=== PATIENT | male | born 1965 | race African-American/Black ===

== ENCOUNTER 2017-01-30 10:28 | Inpatient (IN) | payer MEDICAID ==
[~2017-01-30] VITALS: Ht 172.7 cm; Wt 120.0 kg
[~2017-01-30 10:28] MED LIST: ALBU1AER4 IN; ASPI325T25 PO; CARV25TA55 PO; FURO40TA4 PO; IBUP200C3 PO; LEVO-28 PO; LISI-646 PO; NITR0.4S29 SL; SIMV-8 PO
[2017-01-30 11:09] LABS: Basophils # (auto) 0 uL; Basophils % (auto) 0.6 % (0.0-2.0); DEFINITIVE VIEW TRANSMISSION; Eosinophils # (auto) 0.1 uL; Hematocrit 46.3 % (41.0-53.0); Hemoglobin 15.1 g/dL (13.5-17.5); Lymphocytes # (auto) 1.3 uL; Lymphocytes % (auto) 20.5 % (10.0-50.0); Mean Corpuscular Hemoglobin 26.1 pg (28.0-32.0); Mean Corpuscular Hgb Conc. 32.6 g/dL (32.0-36.0); Mean Platelet Volume 8.6 fL (7.4-10.4); Monocytes # (auto) 0.7 uL; Monocytes % (auto) 11.4 % (0.0-12.0); Neutrophils # (auto) 4.3 uL; Neutrophils % (auto) 65.5 % (37.0-80.0); Platelet Count (auto) 249 10^3/uL (140-450); Red Cell Distribution Width 18.7 % (11.6-16.0); White Blood Cell 6.6 10^3/uL (4.4-10.8)
[2017-01-30 11:31] LABS: Urine Bilirubin Negative (Negative); Urine Blood Negative /uL (Negative); Urine Color Yellow (Yellow); Urine Glucose Normal (Normal); Urine Ketone Negative (Negative); Urine Mucus FEW (None Seen); Urine Nitrite Negative (Negative); Urine RBC <1 /hpf (0 - 3); Urine Squamous Epithelial Cell FEW /hpf (<5); Urine Urobilinogen Normal (Negative); Urine pH 5.5 (5.0-8.0)
[2017-01-30 12:04] LABS: Albumin 3.6 g/dL (3.4-5.0); BUN/Creatinine Ratio 27.8; Bilirubin, Total 0.4 mg/dL (0.2-1.0); Calcium 8.9 mg/dL (8.5-10.1); Potassium 4.4 mmol/L (3.5-5.1); Total Protein 7.8 g/dL (6.4-8.2)
[2017-01-30] MEDS ORDERED: ASPirin 81 mg TAB PO ONE (12:45)
[2017-01-30] MEDS ORDERED: ENOXAPARIN SOD 120 MG/0.8 ML SYRINGE SC ONE (12:45)
[2017-01-30] MEDS ORDERED: MORPHINE SULF INJ 2 MG/ML SYRINGE 1ML IV PRN ×2 (14:15)
[2017-01-30] MEDS ORDERED: HYDROcodone-ACET 5/325MG TAB PO PRN (14:15)
[2017-01-30] MEDS ORDERED: TEMAZEPAM 15 MG CAP PO PRN (14:15)
[2017-01-30] MEDS ORDERED: LORazepam 0.5 MG TAB PO PRN (14:15)
[2017-01-30] MEDS ORDERED: ACETAMINOPHEN 500 MG TAB PO PRN (14:15)
[2017-01-30] MEDS ORDERED: PROMETHAZINE HCL 25 MG/ML 1ML IV PRN (14:15)
[2017-01-30] MEDS: SODIUM CHLORIDE 0.9% 1,000 ML IV SCH (14:15)
[2017-01-30] MEDS ORDERED: ALPRAZolam 0.5 MG TAB PO PRN (14:15)
[2017-01-30] MEDS ORDERED: NITROGLYCERIN 0.4 MG SL TAB SL PRN (14:15)
[2017-01-30] MEDS ORDERED: LACTULOSE 20Gm/30ML SOLN PO PRN (14:15)
[2017-01-30] MEDS ORDERED: ALBUTEROL SULF 2.5 MG/0.5ML(0.5%) NEB SOLN NEB PRN (14:15)
[2017-01-30 14:44] LABS: B-Type Natriuretic Peptide 90.2 pg/mL (0-100); Temperature: 23.7 C (20.0-25.0)
[2017-01-30 18:00] LABS: Partial Thromboplastin Time 37.4 sec (22.64-33.71)
[2017-01-30 18:10] LABS: INR 1.17 (0.9-1.15); Prothrombin Time 12.6 sec (9.37-12.3)
[2017-01-30] MEDS: ALBUTEROL SULF 2.5 MG/0.5ML(0.5%) NEB SOLN NEB SCH (18:28)
[2017-01-30 18:34] VITALS: BP 156/92
[2017-01-30] MEDS ORDERED: WARFARIN SODIUM 5 MG TAB PO ONE (18:45)
[2017-01-30 21:13] VITALS: BP 119/71
[2017-01-30 21:43] VITALS: BP 119/71
[2017-01-30] MEDS ORDERED: AMIODARONE HCL 200 MG TAB PO SCH (22:00)
[2017-01-30] MEDS ORDERED: ATORVASTATIN 20 MG TAB PO SCH (22:00)
[2017-01-30] MEDS: CARVEDILOL 3.125 MG TAB PO SCH (22:00)
[2017-01-30] MEDS: LOSARTAN POTASSIUM 50 MG TAB PO SCH (22:00)
[2017-01-30] MEDS: AMIODARONE HCL 200 MG TAB PO SCH (22:24)
[2017-01-31] MEDS: ALBUTEROL SULF 2.5 MG/0.5ML(0.5%) NEB SOLN NEB SCH ×2 (01:06→07:20)
[2017-01-31] MEDS: SODIUM CHLORIDE 0.9% 1,000 ML IV SCH (03:35)
[2017-01-31 04:54] VITALS: BP 115/71
[2017-01-31 05:58] LABS: Basophils # (auto) 0 uL; Basophils % (auto) 0.7 % (0.0-2.0); DEFINITIVE VIEW TRANSMISSION; Eosinophils # (auto) 0.2 uL; Eosinophils % (auto) 3.9 % (0.0-7.0); Hemoglobin 14.7 g/dL (13.5-17.5); Lymphocytes # (auto) 1.6 uL; Lymphocytes % (auto) 34.1 % (10.0-50.0); Mean Corpuscular Hemoglobin 25.9 pg (28.0-32.0); Mean Corpuscular Hgb Conc. 31.9 g/dL (32.0-36.0); Mean Corpuscular Volume 81.4 fL (80.0-100.0); Monocytes # (auto) 0.6 uL; Monocytes % (auto) 12.2 % (0.0-12.0); Neutrophils # (auto) 2.3 uL; Neutrophils % (auto) 49.1 % (37.0-80.0); Platelet Count (auto) 250 10^3/uL (140-450); Red Cell Distribution Width 18.4 % (11.6-16.0); White Blood Cell 4.6 10^3/uL (4.4-10.8)
[2017-01-31 06:08] LABS: INR 1.14 (0.9-1.15); Partial Thromboplastin Time 34.5 sec (22.64-33.71); Prothrombin Time 12.3 sec (9.37-12.3)
[2017-01-31 06:17] LABS: Potassium 4.1 mmol/L (3.5-5.1)
[2017-01-31 06:24] LABS: Albumin 3.3 g/dL (3.4-5.0); BUN/Creatinine Ratio 22.5; Calcium 8.2 mg/dL (8.5-10.1)
[2017-01-31 06:40] LABS: Bilirubin, Total 0.3 mg/dL (0.2-1.0); Total Protein 6.9 g/dL (6.4-8.2)
[2017-01-31 07:34] LABS: B-Type Natriuretic Peptide 177.57 pg/mL (0-100); Temperature: 22.3 C (20.0-25.0)
[2017-01-31 09:00] VITALS: BP 130/89
[2017-01-31] MEDS: AMIODARONE HCL 200 MG TAB PO SCH (09:31)
[2017-01-31] MEDS: CARVEDILOL 3.125 MG TAB PO SCH (09:31)
[2017-01-31] MEDS: LOSARTAN POTASSIUM 50 MG TAB PO SCH (09:32)
[2017-01-31] MEDS ORDERED: ASPirin 81 mg TAB PO SCH (10:00)
[2017-01-31] MEDS ORDERED: WARFARIN SODIUM 5 MG TAB PO ONE (17:00)
== END 2017-01-31 11:00 | disposition left against medical advice (07) | DRG 460 ==
LOC: EDBD 10:28 → ER 10:32 → TELE 10:33 → EDUNIT# 10:33 → TELE-WESTW 19:55
PROVIDERS: ADMIT Internal Medicine; ATTEND Hospitalist
DX: N17.9 Acute kidney failure, unspecified (principal); I11.0 Hypertensive heart disease with heart failure; I95.9 Hypotension, unspecified; I50.9 Heart failure, unspecified; I25.2 Old myocardial infarction; F17.210 Nicotine dependence, cigarettes, uncomplicated; Z82.3 Family history of stroke; Z82.49 Family history of ischemic heart disease and other diseases of the circulatory system; Z71.9 Counseling, unspecified; Z95.810 Presence of automatic (implantable) cardiac defibrillator; Z53.21 Procedure and treatment not carried out due to patient leaving prior to being seen by health care provider
CPT/HCPCS: 36415; 71010; 80053; 81001; 83880; 84443; 84484; 85025; 85610; 85730; 87081; 93005; 94640; 94761; 96372

== ENCOUNTER → 2017-02-11 | Outpatient (CLI) | payer MEDICAID ==
[2017-02-11] VITALS (8 sets, daily range): BP systolic 100–127; BP diastolic 53–74
[~2017-02-11] MED LIST changes: +CYANOCOBALAMIN (B-12) 1000 MCG/1 ML VIAL ONE; +FUROSEMIDE 100 MG/10ML VIAL IV SCH; +FUROSEMIDE INJECTION 10 ML ONE; +FUROSEMIDE INJECTION 100 MG in SODIUM CHL 0.9% 100 ML IV SCH; +POTASSIUM CHL 10 Meq TABLET PO ONE; +POTASSIUM CHL 20 Meq TABLET PO ONE
[2017-02-11] MEDS: SODIUM CHLORIDE 0.9% 100 ML IV SCH (08:30)
== END | disposition home or self-care (01) ==
LOC: CHF HDHVI 07:47
PROVIDERS: ATTEND Internal Medicine Cardiovascular Disease
DX: I50.9 Heart failure, unspecified (principal); I27.2 Other secondary pulmonary hypertension; E87.70 Fluid overload, unspecified
CPT/HCPCS: 93701; 96365; 96366; G0463; J1940

== ENCOUNTER → 2017-02-13 | Outpatient (CLI) | payer MEDICAID ==
[2017-02-13] VITALS (8 sets, daily range): BP systolic 93–114; BP diastolic 65–75
[~2017-02-13] VITALS: Ht 30.5 cm; Wt 107.5 kg
[~2017-02-13] MED LIST changes: -CYANOCOBALAMIN (B-12) 1000 MCG/1 ML VIAL ONE; +FUROSEMIDE 100 MG/10ML VIAL IV ONE; -FUROSEMIDE 100 MG/10ML VIAL IV SCH; -POTASSIUM CHL 10 Meq TABLET PO ONE
[2017-02-13 08:57] LABS: INR 1.2 (0.7-1.3); Prothrombin Time 14.4 sec (9.0-12.0)
[2017-02-13 12:59] LABS: BUN/Creatinine Ratio 18.2; Calcium 9.4 mg/dL (8.5-10.1); Potassium 3.7 mmol/L (3.5-5.1)
== END | disposition home or self-care (01) ==
LOC: CHF HDHVI 08:15
PROVIDERS: ATTEND Internal Medicine Cardiovascular Disease
DX: I10 Essential (primary) hypertension (principal)
CPT/HCPCS: 36415; 80048; 85610; 96365; 96366; G0463

== ENCOUNTER → 2017-02-18 | Outpatient (CLI) | payer MEDICAID ==
[~2017-02-18] MED LIST changes: -FUROSEMIDE INJECTION 100 MG in SODIUM CHL 0.9% 100 ML IV SCH; -POTASSIUM CHL 20 Meq TABLET PO ONE
[2017-02-18 08:00] VITALS: BP 100/66
[2017-02-18 08:30] VITALS: BP 105/60
[2017-02-18 09:00] VITALS: BP 106/69
[2017-02-18 09:30] VITALS: BP 95/58
[2017-02-18 10:00] VITALS: BP 98/73
[2017-02-18 10:30] VITALS: BP 114/77
[2017-02-18 12:32] LABS: DEFINITIVE VIEW TRANSMISSION; Hematocrit 46.1 % (41.0-53.0); Hemoglobin 15.6 g/dL (13.5-17.5); Mean Corpuscular Hemoglobin 27.3 pg (28.0-32.0); Mean Corpuscular Hgb Conc. 33.8 g/dL (32.0-36.0); Mean Corpuscular Volume 80.7 fL (80.0-100.0); Mean Platelet Volume 9.6 fL (7.4-10.4); Platelet Count (auto) 210 10^3/uL (140-450); Red Cell Distribution Width 19.6 % (11.6-16.0); SUSPECT VIEW TRANSMISSION; White Blood Cell 3.9 10^3/uL (4.4-10.8)
[2017-02-18 12:37] LABS: BUN/Creatinine Ratio 18.8; Calcium 8.7 mg/dL (8.5-10.1); Potassium 4.1 mmol/L (3.5-5.1)
[2017-02-18 12:50] LABS: Metamyelocytes % 0; Myelocytes % 0; Promyelocytes % 0; Reactive Lymphocytes 0
[2017-02-18 13:09] LABS: Anisocytosis Slight
[2017-02-18 13:10] LABS: Platelet Estimate Adequate
== END | disposition home or self-care (01) ==
LOC: CHF HDHVI 08:05
PROVIDERS: ATTEND Internal Medicine Cardiovascular Disease
DX: I10 Essential (primary) hypertension (principal); D64.9 Anemia, unspecified
CPT/HCPCS: 36415; 80048; 82962; 85007; 85027; 96365; 96367; G0463

== ENCOUNTER → 2017-02-20 | Outpatient (CLI) | payer MEDICAID ==
[2017-02-20] VITALS (7 sets, daily range): BP systolic 99–114; BP diastolic 61–75
[~2017-02-20] MED LIST changes: -FUROSEMIDE 100 MG/10ML VIAL IV ONE; +FUROSEMIDE INJECTION 100 MG in SODIUM CHL 0.9% 100 ML IV ONE; +POTASSIUM CHL 20 Meq TABLET PO ONE; +SODIUM CHLORIDE 0.9% 1,000 ML IV SCH
== END | disposition home or self-care (01) ==
LOC: CHF HDHVI 07:43
PROVIDERS: ATTEND Internal Medicine Cardiovascular Disease
DX: I11.0 Hypertensive heart disease with heart failure (principal); I50.9 Heart failure, unspecified; F41.9 Anxiety disorder, unspecified; I49.9 Cardiac arrhythmia, unspecified; E87.70 Fluid overload, unspecified
CPT/HCPCS: 96365; 96366; G0463; J1940

== ENCOUNTER → 2017-02-25 | Outpatient (CLI) | payer MEDICAID ==
[~2017-02-25] MED LIST changes: +FUROSEMIDE 100 MG/10ML VIAL IV ONE; -FUROSEMIDE INJECTION 100 MG in SODIUM CHL 0.9% 100 ML IV ONE; -SODIUM CHLORIDE 0.9% 1,000 ML IV SCH; +SODIUM CHLORIDE 0.9% 100 ML IV SCH
[2017-02-25 12:16] VITALS: BP 87/70
== END | disposition home or self-care (01) ==
LOC: CHF HDHVI 09:47
PROVIDERS: ATTEND Internal Medicine Cardiovascular Disease
DX: I50.9 Heart failure, unspecified (principal); E87.6 Hypokalemia; I10 Essential (primary) hypertension; I49.9 Cardiac arrhythmia, unspecified; Z51.81 Encounter for therapeutic drug level monitoring
CPT/HCPCS: 96365; 96366; G0463; J1940

== ENCOUNTER → 2017-02-27 | Outpatient (CLI) | payer MEDICAID ==
[~2017-02-27] MED LIST changes: -FUROSEMIDE 100 MG/10ML VIAL IV ONE; +FUROSEMIDE 20 MG/2 ML VIAL IV ONE; +FUROSEMIDE 20 MG/2 ML VIAL ONE; +FUROSEMIDE 40 MG/4 ML VIAL IV ONE; +FUROSEMIDE 40 MG/4 ML VIAL ONE; -FUROSEMIDE INJECTION 10 ML ONE; +FUROSEMIDE IV SCH; +SODIUM CHL 0.9% IV SCH; -SODIUM CHLORIDE 0.9% 100 ML IV SCH
[2017-02-27 09:00] VITALS: BP 97/60
[2017-02-27 09:30] VITALS: BP 103/55
[2017-02-27 10:00] VITALS: BP 121/72
[2017-02-27 10:30] VITALS: BP 101/63
[2017-02-27 11:15] VITALS: BP 97/60
[2017-02-27 13:56] VITALS: BP 105/76
== END | disposition home or self-care (01) ==
LOC: CHF HDHVI 09:01
PROVIDERS: ATTEND Internal Medicine Cardiovascular Disease
DX: I11.0 Hypertensive heart disease with heart failure (principal); I50.9 Heart failure, unspecified; I27.2 Other secondary pulmonary hypertension; R53.83 Other fatigue; E87.70 Fluid overload, unspecified; E87.8 Other disorders of electrolyte and fluid balance, not elsewhere classified
CPT/HCPCS: 96365; 96366; G0463; J1940

== ENCOUNTER → 2017-03-04 | Outpatient (CLI) | payer MEDICAID ==
[2017-03-04] VITALS (7 sets, daily range): BP systolic 95–117; BP diastolic 58–83
[~2017-03-04] MED LIST changes: +FUROSEMIDE 100 MG/10ML VIAL IV ONE; -FUROSEMIDE 20 MG/2 ML VIAL IV ONE; -FUROSEMIDE 20 MG/2 ML VIAL ONE; -FUROSEMIDE 40 MG/4 ML VIAL IV ONE; -FUROSEMIDE 40 MG/4 ML VIAL ONE; +FUROSEMIDE INJECTION 10 ML ONE; -FUROSEMIDE IV SCH; -SODIUM CHL 0.9% IV SCH; +SODIUM CHLORIDE 0.9% 100 ML IV SCH
[2017-03-04 12:35] LABS: Potassium 4.2 mmol/L (3.5-5.1)
[2017-03-04 13:46] LABS: INR 1.9 (0.7-1.3); Prothrombin Time 22.4 sec (9.0-12.0)
== END | disposition home or self-care (01) ==
LOC: CHF HDHVI 09:32
PROVIDERS: ATTEND Internal Medicine Cardiovascular Disease
DX: I10 Essential (primary) hypertension (principal); E11.9 Type 2 diabetes mellitus without complications; E55.9 Vitamin D deficiency, unspecified
CPT/HCPCS: 36415; 80048; 82306; 83036; 85610; 96365; 96366; G0463

== ENCOUNTER → 2017-03-06 | Outpatient (CLI) | payer MEDICAID ==
[2017-03-06] VITALS (8 sets, daily range): BP systolic 94–126; BP diastolic 62–81
[~2017-03-06] MED LIST changes: -FUROSEMIDE 100 MG/10ML VIAL IV ONE; -POTASSIUM CHL 20 Meq TABLET PO ONE
[2017-03-06] MEDS: FUROSEMIDE 100 MG/10ML VIAL IV ONE ×2 (09:00→09:15)
== END | disposition home or self-care (01) ==
LOC: CHF HDHVI 09:14
PROVIDERS: ATTEND Internal Medicine Cardiovascular Disease
DX: I50.9 Heart failure, unspecified (principal); R53.83 Other fatigue; E87.70 Fluid overload, unspecified
CPT/HCPCS: 96365; 96366; G0463; J1940

== ENCOUNTER → 2017-03-11 | Outpatient (CLI) | payer MEDICAID ==
[2017-03-11] VITALS (10 sets, daily range): BP systolic 78–105; BP diastolic 48–72
[~2017-03-11] MED LIST changes: +FUROSEMIDE 100 MG/10ML VIAL IV ONE; +SODIUM CHLORIDE 0.9% 100 ML IV ONE; -SODIUM CHLORIDE 0.9% 100 ML IV SCH
[2017-03-11 17:08] LABS: BUN/Creatinine Ratio 19.1; Calcium 8.9 mg/dL (8.5-10.1); Magnesium 2.4 mg/dL (1.6-2.6); Potassium 3.9 mmol/L (3.5-5.1)
[2017-03-11 18:33] LABS: Basophils # (auto) 0 uL; Basophils % (auto) 0.7 % (0.0-2.0); CONDITION Y; DEFINITIVE SEE PRINTOUT; Eosinophils # (auto) 0 uL; Hematocrit 42.9 % (41.0-53.0); Hemoglobin 14.2 g/dL (13.5-17.5); Lymphocytes # (auto) 1.2 uL; Mean Corpuscular Hemoglobin 26.5 pg (28.0-32.0); Mean Corpuscular Volume 80.3 fL (80.0-100.0); Mean Platelet Volume 8.7 fL (7.4-10.4); Monocytes # (auto) 0.5 uL; Neutrophils # (auto) 2.4 uL; Neutrophils % (auto) 58.3 % (37.0-80.0); Platelet Count (auto) 243 10^3/uL (140-450); White Blood Cell 4.1 10^3/uL (4.4-10.8)
== END | disposition home or self-care (01) ==
LOC: CHF HDHVI 10:34
PROVIDERS: ATTEND Internal Medicine Cardiovascular Disease
DX: I10 Essential (primary) hypertension (principal); E83.42 Hypomagnesemia; D64.9 Anemia, unspecified
CPT/HCPCS: 36415; 80048; 82962; 83735; 85025; 96365; 96366; G0463; J1940

== ENCOUNTER → 2017-03-18 | Outpatient (CLI) | payer MEDICAID ==
[~2017-03-18] MED LIST changes: -FUROSEMIDE 100 MG/10ML VIAL IV ONE; +FUROSEMIDE INJECTION 100 MG in SODIUM CHL 0.9% 100 ML IV SCH; -SODIUM CHLORIDE 0.9% 100 ML IV ONE
[2017-03-18 11:00] VITALS: BP 110/76
[2017-03-18 11:30] VITALS: BP 107/71
[2017-03-18 12:00] VITALS: BP 107/71
[2017-03-18 12:30] VITALS: BP 121/73
[2017-03-18 12:36] LABS: Basophils # (auto) 0 uL; CONDITION Y; DEFINITIVE SEE PRINTOUT; Eosinophils # (auto) 0.1 uL; Hematocrit 42.7 % (41.0-53.0); Hemoglobin 14.1 g/dL (13.5-17.5); Lymphocytes # (auto) 1.1 uL; Lymphocytes % (auto) 21.7 % (10.0-50.0); Mean Corpuscular Hemoglobin 26.5 pg (28.0-32.0); Mean Corpuscular Volume 80.3 fL (80.0-100.0); Mean Platelet Volume 9.6 fL (7.4-10.4); Monocytes # (auto) 0.6 uL; Monocytes % (auto) 11.4 % (0.0-12.0); Neutrophils # (auto) 3.5 uL; Neutrophils % (auto) 65.9 % (37.0-80.0); Platelet Count (auto) 209 10^3/uL (140-450); Red Cell Distribution Width 19.5 % (11.6-16.0); White Blood Cell 5.3 10^3/uL (4.4-10.8)
[2017-03-18 12:58] LABS: BUN/Creatinine Ratio 12.5; Calcium 8.9 mg/dL (8.5-10.1); Magnesium 2.1 mg/dL (1.6-2.6); Potassium 3.6 mmol/L (3.5-5.1)
[2017-03-18 13:00] VITALS: BP 97/72
[2017-03-18 13:45] VITALS: BP 96/64
== END | disposition home or self-care (01) ==
LOC: CHF HDHVI 10:26
PROVIDERS: ATTEND Internal Medicine Cardiovascular Disease
DX: I50.9 Heart failure, unspecified (principal); E87.70 Fluid overload, unspecified
CPT/HCPCS: 36415; 80048; 83735; 85025; 85610; 96365; 96366; G0463; J1940

== ENCOUNTER → 2017-03-20 | Outpatient (CLI) | payer MEDICAID ==
[~2017-03-20] MED LIST changes: +FUROSEMIDE 100 MG/10ML VIAL IV ONE; -FUROSEMIDE INJECTION 100 MG in SODIUM CHL 0.9% 100 ML IV SCH; +SODIUM CHLORIDE 0.9% 100 ML IV ONE
[2017-03-20 14:10] VITALS: BP 103/64
== END | disposition home or self-care (01) ==
LOC: CHF HDHVI 11:24
PROVIDERS: ATTEND Internal Medicine Cardiovascular Disease
DX: I11.0 Hypertensive heart disease with heart failure (principal); I50.9 Heart failure, unspecified; I27.2 Other secondary pulmonary hypertension
CPT/HCPCS: 96365; 96366; G0463; J1940

== ENCOUNTER → 2017-03-31 | Outpatient (CLI) | payer MEDICAID ==
[2017-03-31 11:30] VITALS: BP 117/74
[2017-03-31 12:00] VITALS: BP 131/74
[2017-03-31 12:27] LABS: INR 1.9 (0.7-1.3); Prothrombin Time 22.3 sec (9.0-12.0)
[2017-03-31 12:30] VITALS: BP 109/90
[2017-03-31 13:00] VITALS: BP 116/92
[2017-03-31 13:30] VITALS: BP 112/78
[2017-03-31 14:30] VITALS: BP 115/66
== END | disposition home or self-care (01) ==
LOC: CHF HDHVI 10:11
PROVIDERS: ATTEND Internal Medicine Cardiovascular Disease
DX: I11.0 Hypertensive heart disease with heart failure (principal); I50.9 Heart failure, unspecified
CPT/HCPCS: 85610; 96365; 96366; G0463; J1940

== ENCOUNTER → 2017-04-09 | Outpatient (CLI) | payer MEDICAID ==
[~2017-04-09] VITALS: Ht 152.4 cm; Wt 110.7 kg
[~2017-04-09] MED LIST changes: -FUROSEMIDE 100 MG/10ML VIAL IV ONE; +FUROSEMIDE 100 MG/10ML VIAL IV SCH; +POTASSIUM CHL 20 Meq TABLET PO ONE; -SODIUM CHLORIDE 0.9% 100 ML IV ONE
[2017-04-09 11:00] VITALS: BP 100/60
[2017-04-09 11:30] VITALS: BP 113/62
[2017-04-09 12:00] VITALS: BP 108/62
[2017-04-09 12:30] VITALS: BP 122/73
[2017-04-09 13:30] VITALS: BP 107/72
[2017-04-09 16:52] LABS: Magnesium 2.3 mg/dL (1.6-2.6); Potassium 3.6 mmol/L (3.5-5.1)
[2017-04-09 17:06] LABS: B-Type Natriuretic Peptide 211.41 pg/mL (0-100)
[2017-04-09 17:25] LABS: Temperature: 22.7 C (20.0-25.0)
== END | disposition home or self-care (01) ==
LOC: CHF HDHVI 10:45
PROVIDERS: ATTEND Internal Medicine Cardiovascular Disease
DX: R94.4 Abnormal results of kidney function studies (principal); E87.6 Hypokalemia; I50.9 Heart failure, unspecified; E83.42 Hypomagnesemia
CPT/HCPCS: 36415; 82565; 83735; 83880; 84132; 84520; 96365; 96366; G0463; J1940; 96367; 96374

== ENCOUNTER → 2017-04-11 | Outpatient (CLI) | payer MEDICAID ==
[2017-04-11] VITALS (7 sets, daily range): BP systolic 101–117; BP diastolic 64–75
[~2017-04-11] MED LIST changes: -FUROSEMIDE 100 MG/10ML VIAL IV SCH; +FUROSEMIDE INJECTION 100 MG in SODIUM CHL 0.9% 100 ML IV SCH
== END | disposition home or self-care (01) ==
LOC: CHF HDHVI 11:29
PROVIDERS: ATTEND Internal Medicine Cardiovascular Disease
DX: I50.9 Heart failure, unspecified (principal); I25.10 Atherosclerotic heart disease of native coronary artery without angina pectoris
CPT/HCPCS: 96365; 96366; G0463; J1940

== ENCOUNTER → 2017-05-12 | Outpatient (CLI) | payer MEDICAID ==
[~2017-05-12] MED LIST changes: +FUROSEMIDE 100 MG/10ML VIAL IV ONE; +FUROSEMIDE 20 MG/2 ML VIAL ONE; -FUROSEMIDE INJECTION 100 MG in SODIUM CHL 0.9% 100 ML IV SCH
[2017-05-12 11:30] VITALS: BP 133/81
[2017-05-12 12:13] LABS: INR 1.5 (0.7-1.3)
[2017-05-12 15:25] VITALS: BP 147/85
[2017-05-12 16:14] LABS: Basophils # (auto) 0 uL; Basophils % (auto) 0.4 % (0.0-2.0); CONDITION Y; DEFINITIVE SEE PRINTOUT; Eosinophils # (auto) 0.1 uL; Eosinophils % (auto) 1.3 % (0.0-7.0); Hematocrit 39.5 % (41.0-53.0); Hemoglobin 12.6 g/dL (13.5-17.5); Lymphocytes % (auto) 23.4 % (10.0-50.0); Mean Corpuscular Hemoglobin 27.5 pg (28.0-32.0); Mean Corpuscular Volume 85.9 fL (80.0-100.0); Mean Platelet Volume 8.9 fL (7.4-10.4); Monocytes # (auto) 0.3 uL; Monocytes % (auto) 7.5 % (0.0-12.0); Neutrophils % (auto) 67.4 % (37.0-80.0); Platelet Count (auto) 249 10^3/uL (140-450); White Blood Cell 4.4 10^3/uL (4.4-10.8)
[2017-05-12 16:21] LABS: Red Cell Distribution Width 20.1 % (11.6-16.0)
[2017-05-12 16:26] LABS: BUN/Creatinine Ratio 9.8; Calcium 8.6 mg/dL (8.5-10.1); Magnesium 2.1 mg/dL (1.6-2.6); Potassium 3.5 mmol/L (3.5-5.1); Uric Acid 2.9 mg/dL (3.5-7.2)
[2017-05-12 16:47] LABS: Anisocytosis Slight; Ovalocytes FEW; Platelet Estimate Adequate
== END | disposition home or self-care (01) ==
LOC: CHF HDHVI 11:30
PROVIDERS: ATTEND Internal Medicine Cardiovascular Disease
DX: I10 Essential (primary) hypertension (principal); E83.42 Hypomagnesemia; M10.9 Gout, unspecified; D64.9 Anemia, unspecified; I48.92 Unspecified atrial flutter
CPT/HCPCS: 36415; 80048; 83735; 84550; 85025; 85610; 96374; G0463; J1940

== ENCOUNTER → 2017-05-14 | Outpatient (CLI) | payer MEDICAID ==
[~2017-05-14] VITALS: Ht 33 cm; Wt 0.5 kg
[~2017-05-14] MED LIST changes: +CYANOCOBALAMIN (B-12) 1000 MCG/1 ML VIAL IM ONE; +CYANOCOBALAMIN (B-12) 1000 MCG/1 ML VIAL ONE; -FUROSEMIDE 20 MG/2 ML VIAL ONE; +FUROSEMIDE 40 MG/4 ML VIAL ONE; -FUROSEMIDE INJECTION 10 ML ONE
[2017-05-14 11:55] VITALS: BP 128/81
[2017-05-14 15:21] VITALS: BP 126/79
[2017-05-14 16:35] LABS: Potassium 3.8 mmol/L (3.5-5.1)
== END | disposition home or self-care (01) ==
LOC: CHF HDHVI 12:06
PROVIDERS: ATTEND Internal Medicine Cardiovascular Disease
DX: E87.6 Hypokalemia (principal); R94.4 Abnormal results of kidney function studies
CPT/HCPCS: 36415; 82565; 84132; 84520; 96374; G0463; J1940; J3420

== ENCOUNTER → 2017-06-26 | Outpatient (CLI) | payer MEDICAID ==
[~2017-06-26] MED LIST changes: -CYANOCOBALAMIN (B-12) 1000 MCG/1 ML VIAL IM ONE; -CYANOCOBALAMIN (B-12) 1000 MCG/1 ML VIAL ONE; -FUROSEMIDE 100 MG/10ML VIAL IV ONE; -FUROSEMIDE 40 MG/4 ML VIAL ONE; +FUROSEMIDE INJECTION 10 ML ONE; +FUROSEMIDE INJECTION 100 MG in SODIUM CHL 0.9% 100 ML IV SCH; -POTASSIUM CHL 20 Meq TABLET PO ONE
[2017-06-26 16:45] LABS: BUN/Creatinine Ratio 19.3; Calcium 9.4 mg/dL (8.5-10.1); Magnesium 2.4 mg/dL (1.6-2.6)
[2017-06-26 16:51] VITALS: BP 99/58
[2017-06-26 17:08] LABS: Basophils # (auto) 0 uL; Basophils % (auto) 0.6 % (0.0-2.0); Eosinophils # (auto) 0.1 uL; Eosinophils % (auto) 1.6 % (0.0-7.0); Hematocrit 44.9 % (41.0-53.0); Hemoglobin 14.5 g/dL (13.5-17.5); Lymphocytes # (auto) 1.4 uL; Lymphocytes % (auto) 23.5 % (10.0-50.0); Mean Corpuscular Hemoglobin 28.3 pg (28.0-32.0); Mean Corpuscular Hgb Conc. 32.3 g/dL (32.0-36.0); Mean Corpuscular Volume 87.8 fL (80.0-100.0); Mean Platelet Volume 8.8 fL (6.9-10.8); Monocytes # (auto) 0.5 uL; Monocytes % (auto) 8.8 % (0.0-12.0); Neutrophils % (auto) 65.5 % (37.0-80.0); Nucleated Red Blood Cells % 0.1 %; Platelet Count (auto) 216 10^3/uL (140-450); Red Cell Distribution Width 15.9 % (11.8-14.3); White Blood Cell 6.1 10^3/uL (4.4-10.8)
== END | disposition home or self-care (01) ==
LOC: CHF HDHVI 13:40
PROVIDERS: ATTEND Internal Medicine Cardiovascular Disease
DX: I11.0 Hypertensive heart disease with heart failure (principal); I50.9 Heart failure, unspecified; E11.9 Type 2 diabetes mellitus without complications; E83.42 Hypomagnesemia; D64.9 Anemia, unspecified
CPT/HCPCS: 36415; 80048; 83036; 83735; 85025; 96365; 96366; G0463; J1940

== ENCOUNTER → 2017-07-03 | Outpatient (CLI) | payer MEDICAID ==
[~2017-07-03] MED LIST changes: +FUROSEMIDE 20 MG/2 ML VIAL IV ONE; +FUROSEMIDE 20 MG/2 ML VIAL ONE; +FUROSEMIDE 40 MG/4 ML VIAL IV ONE; +FUROSEMIDE 40 MG/4 ML VIAL ONE; -FUROSEMIDE INJECTION 10 ML ONE; -FUROSEMIDE INJECTION 100 MG in SODIUM CHL 0.9% 100 ML IV SCH; +POTASSIUM CHL 20 Meq TABLET PO ONE
[2017-07-03 16:00] VITALS: BP 105/68
== END | disposition home or self-care (01) ==
LOC: CHF HDHVI 12:14
PROVIDERS: ATTEND Internal Medicine Cardiovascular Disease
DX: I11.0 Hypertensive heart disease with heart failure (principal); I50.9 Heart failure, unspecified; F41.9 Anxiety disorder, unspecified; R06.02 Shortness of breath
CPT/HCPCS: 36415; 93701; 96374; G0463; J1940

== ENCOUNTER → 2018-01-12 | Outpatient (CLI) | payer MEDICARE ==
[~2018-01-12] MED LIST changes: +ALBUAER3 IN; +ALBUTEROL SULF 2.5 MG/0.5ML(0.5%) NEB SOLN NEB ONE; +ALBUTEROL SULF 2.5 MG/0.5ML(0.5%) NEB SOLN ONE; +ALPR0.5T PO; +AMIO100T3 OR; +CAR3125T OR; +CYANOCOBALAMIN (B-12) 1000 MCG/1 ML VIAL IM ONE; +CYANOCOBALAMIN (B-12) 1000 MCG/1 ML VIAL ONE; -FUROSEMIDE 20 MG/2 ML VIAL IV ONE; -FUROSEMIDE 20 MG/2 ML VIAL ONE; -FUROSEMIDE 40 MG/4 ML VIAL IV ONE; -FUROSEMIDE 40 MG/4 ML VIAL ONE; +LISI-711 PO; +LOSA25TA9 PO; +LOSA50TA6 PO; +POTA8TAB2 PO; -POTASSIUM CHL 20 Meq TABLET PO ONE; +SACU1TAB PO; +SPIR25TA88 PO; +SPIRPOW PO; +WARF1TAB36 PO
[2018-01-12 11:09] VITALS: BP 103/66
[2018-01-12 12:16] LABS: Potassium 4.2 mmol/L (3.5-5.1)
== END | disposition home or self-care (01) ==
LOC: MERGE 09:35 → CHF HDHVI 09:35
PROVIDERS: ATTEND Internal Medicine Cardiovascular Disease
DX: I13.0 Hypertensive heart and chronic kidney disease with heart failure and stage 1 through stage 4 chronic kidney disease, or unspecified chronic kidney disease (principal); I50.32 Chronic diastolic (congestive) heart failure; N18.3 Chronic kidney disease, stage 3 (moderate); E11.22 Type 2 diabetes mellitus with diabetic chronic kidney disease; I25.10 Atherosclerotic heart disease of native coronary artery without angina pectoris; I25.2 Old myocardial infarction; F17.210 Nicotine dependence, cigarettes, uncomplicated; Z79.01 Long term (current) use of anticoagulants; Z79.82 Long term (current) use of aspirin
CPT/HCPCS: 36415; 82565; 84132; 84520; 93701; 94618; 94640; 96372; G0463

== ENCOUNTER → 2018-01-20 | Outpatient (CLI) | payer MEDICARE ==
[~2018-01-20] MED LIST changes: -ALBUTEROL SULF 2.5 MG/0.5ML(0.5%) NEB SOLN NEB ONE; -ALBUTEROL SULF 2.5 MG/0.5ML(0.5%) NEB SOLN ONE; -CYANOCOBALAMIN (B-12) 1000 MCG/1 ML VIAL IM ONE; -CYANOCOBALAMIN (B-12) 1000 MCG/1 ML VIAL ONE; +FUROSEMIDE 40 MG/4 ML VIAL IV ONE; +FUROSEMIDE 40 MG/4 ML VIAL ONE
[2018-01-20 10:00] VITALS: BP 122/84
[2018-01-20 12:52] LABS: Potassium 4.4 mmol/L (3.5-5.1)
[2018-01-20 13:17] VITALS: BP 123/83
== END | disposition home or self-care (01) ==
LOC: CHF HDHVI 10:05 → MERGE 10:05
PROVIDERS: ATTEND Internal Medicine Cardiovascular Disease
DX: I13.0 Hypertensive heart and chronic kidney disease with heart failure and stage 1 through stage 4 chronic kidney disease, or unspecified chronic kidney disease (principal); E11.22 Type 2 diabetes mellitus with diabetic chronic kidney disease; N18.3 Chronic kidney disease, stage 3 (moderate); I50.23 Acute on chronic systolic (congestive) heart failure; I50.32 Chronic diastolic (congestive) heart failure; F41.9 Anxiety disorder, unspecified; I25.2 Old myocardial infarction; N28.9 Disorder of kidney and ureter, unspecified; F17.200 Nicotine dependence, unspecified, uncomplicated; F12.10 Cannabis abuse, uncomplicated; Z79.01 Long term (current) use of anticoagulants; Z95.810 Presence of automatic (implantable) cardiac defibrillator; Z99.81 Dependence on supplemental oxygen; Z68.34 Body mass index [BMI] 34.0-34.9, adult; J44.9 Chronic obstructive pulmonary disease, unspecified
CPT/HCPCS: 36415; 82565; 84132; 84520; 85610; 96374; G0463; J1940

== ENCOUNTER → 2018-01-22 | Outpatient (CLI) | payer MEDICAID, MEDICARE ==
[~2018-01-22] MED LIST changes: +POTASSIUM CHL 20 Meq TABLET PO ONE
[2018-01-22 13:05] VITALS: BP 140/81
[2018-01-22 15:00] VITALS: BP 121/71
== END | disposition home or self-care (01) ==
LOC: CHF HDHVI 13:18
PROVIDERS: ATTEND Internal Medicine Cardiovascular Disease
DX: I13.0 Hypertensive heart and chronic kidney disease with heart failure and stage 1 through stage 4 chronic kidney disease, or unspecified chronic kidney disease (principal); N18.3 Chronic kidney disease, stage 3 (moderate); I50.23 Acute on chronic systolic (congestive) heart failure; R06.00 Dyspnea, unspecified; E87.70 Fluid overload, unspecified; I25.2 Old myocardial infarction; F41.9 Anxiety disorder, unspecified; F17.210 Nicotine dependence, cigarettes, uncomplicated; F12.10 Cannabis abuse, uncomplicated; Z99.81 Dependence on supplemental oxygen
CPT/HCPCS: 96374; G0463; J1940

== ENCOUNTER → 2018-01-27 | Outpatient (CLI) | payer MEDICAID, MEDICARE ==
[~2018-01-27] MED LIST changes: -FUROSEMIDE 40 MG/4 ML VIAL IV ONE; -FUROSEMIDE 40 MG/4 ML VIAL ONE; -POTASSIUM CHL 20 Meq TABLET PO ONE; +SILVER SULFADIAZINE 1 % TOPICAL CREAM 50GM TOP ONE
[2018-01-27 13:30] VITALS: BP 101/67
[2018-01-27 16:21] LABS: BUN/Creatinine Ratio 13.8; Calcium 8.6 mg/dL (8.5-10.1); Potassium 3.7 mmol/L (3.5-5.1)
== END | disposition home or self-care (01) ==
LOC: CHF HDHVI 11:25
PROVIDERS: ATTEND Internal Medicine Cardiovascular Disease
DX: I13.0 Hypertensive heart and chronic kidney disease with heart failure and stage 1 through stage 4 chronic kidney disease, or unspecified chronic kidney disease (principal); E11.22 Type 2 diabetes mellitus with diabetic chronic kidney disease; I50.23 Acute on chronic systolic (congestive) heart failure; N18.3 Chronic kidney disease, stage 3 (moderate); Z79.82 Long term (current) use of aspirin
CPT/HCPCS: 36415; 80048; G0463

== ENCOUNTER → 2018-01-29 | Outpatient (CLI) | payer MEDICAID, MEDICARE ==
[~2018-01-29] VITALS: Ht 30.5 cm; Wt 0.5 kg
[~2018-01-29] MED LIST changes: +CYANOCOBALAMIN (B-12) 1000 MCG/1 ML VIAL IM ONE; +CYANOCOBALAMIN (B-12) 1000 MCG/1 ML VIAL ONE; -SILVER SULFADIAZINE 1 % TOPICAL CREAM 50GM TOP ONE
[2018-01-29 12:22] VITALS: BP 102/50
[2018-01-29 13:35] VITALS: BP 112/65
== END | disposition home or self-care (01) ==
LOC: CHF HDHVI 12:34
PROVIDERS: ATTEND Internal Medicine Cardiovascular Disease
DX: I13.0 Hypertensive heart and chronic kidney disease with heart failure and stage 1 through stage 4 chronic kidney disease, or unspecified chronic kidney disease (principal); E11.22 Type 2 diabetes mellitus with diabetic chronic kidney disease; N18.3 Chronic kidney disease, stage 3 (moderate); I50.23 Acute on chronic systolic (congestive) heart failure; F41.9 Anxiety disorder, unspecified; I25.2 Old myocardial infarction; F17.210 Nicotine dependence, cigarettes, uncomplicated; F12.10 Cannabis abuse, uncomplicated; Z79.01 Long term (current) use of anticoagulants; Z95.810 Presence of automatic (implantable) cardiac defibrillator; Z86.73 Personal history of transient ischemic attack (TIA), and cerebral infarction without residual deficits; Z68.34 Body mass index [BMI] 34.0-34.9, adult
CPT/HCPCS: 85610; 96372; G0463; J3420

== ENCOUNTER → 2018-02-05 | Outpatient (CLI) | payer MEDICARE ==
[~2018-02-05] MED LIST changes: -CYANOCOBALAMIN (B-12) 1000 MCG/1 ML VIAL IM ONE; -CYANOCOBALAMIN (B-12) 1000 MCG/1 ML VIAL ONE; +FUROSEMIDE 100 MG/10ML VIAL IV ONE; +FUROSEMIDE 40 MG/4 ML VIAL ONE; +POTASSIUM CHL 20 Meq TABLET PO ONE
[2018-02-05 15:00] VITALS: BP_SYST 102; BP_DIAS 53; BP_DIAS 65
[2018-02-05 15:59] LABS: Basophils # (auto) 0 uL; Basophils % (auto) 0.5 % (0.0-2.0); Eosinophils # (auto) 0.1 uL; Eosinophils % (auto) 1.5 % (0.0-7.0); Hemoglobin 13.4 g/dL (13.5-17.5); Lymphocytes # (auto) 0.8 uL; Lymphocytes % (auto) 18.3 % (10.0-50.0); Mean Corpuscular Hemoglobin 27.8 pg (28.0-32.0); Mean Corpuscular Hgb Conc. 32.7 g/dL (32.0-36.0); Mean Corpuscular Volume 85.2 fL (80.0-100.0); Monocytes # (auto) 0.4 uL; Monocytes % (auto) 9.1 % (0.0-12.0); Neutrophils # (auto) 3.2 uL; Neutrophils % (auto) 70.6 % (37.0-80.0); Nucleated Red Blood Cells % 0.3 %; Platelet Count (auto) 175 10^3/uL (140-450); Red Blood Cells 4.82 10^6/uL (4.5-5.90); White Blood Cell 4.6 10^3/uL (4.4-10.8)
[2018-02-05 16:04] LABS: Potassium 3.8 mmol/L (3.5-5.1)
== END | disposition home or self-care (01) ==
LOC: CHF HDHVI 12:58
PROVIDERS: ATTEND Internal Medicine Cardiovascular Disease
DX: I13.0 Hypertensive heart and chronic kidney disease with heart failure and stage 1 through stage 4 chronic kidney disease, or unspecified chronic kidney disease (principal); E11.22 Type 2 diabetes mellitus with diabetic chronic kidney disease; N18.3 Chronic kidney disease, stage 3 (moderate); I50.23 Acute on chronic systolic (congestive) heart failure; F41.9 Anxiety disorder, unspecified; I25.2 Old myocardial infarction; I25.10 Atherosclerotic heart disease of native coronary artery without angina pectoris; D63.8 Anemia in other chronic diseases classified elsewhere; D64.9 Anemia, unspecified; F12.10 Cannabis abuse, uncomplicated; Z86.73 Personal history of transient ischemic attack (TIA), and cerebral infarction without residual deficits; Z95.810 Presence of automatic (implantable) cardiac defibrillator; Z79.4 Long term (current) use of insulin; Z79.01 Long term (current) use of anticoagulants; Z99.81 Dependence on supplemental oxygen; Z68.34 Body mass index [BMI] 34.0-34.9, adult
CPT/HCPCS: 36415; 82565; 84132; 84520; 85025; 96374; G0463; J1940

== ENCOUNTER → 2018-02-10 | Outpatient (CLI) | payer MEDICARE ==
[~2018-02-10] MED LIST changes: +AMIODARONE HCL 200 MG TAB ONE; +AMIODARONE HCL 200 MG TAB PO ONE; -FUROSEMIDE 100 MG/10ML VIAL IV ONE; -FUROSEMIDE 40 MG/4 ML VIAL ONE; -POTASSIUM CHL 20 Meq TABLET PO ONE
[2018-02-10 09:30] VITALS: BP 103/65
[2018-02-10 10:47] VITALS: BP 116/68
== END | disposition home or self-care (01) ==
LOC: CHF HDHVI 09:43
PROVIDERS: ATTEND Internal Medicine Cardiovascular Disease
DX: I13.0 Hypertensive heart and chronic kidney disease with heart failure and stage 1 through stage 4 chronic kidney disease, or unspecified chronic kidney disease (principal); E11.22 Type 2 diabetes mellitus with diabetic chronic kidney disease; N18.3 Chronic kidney disease, stage 3 (moderate); I50.9 Heart failure, unspecified; I25.10 Atherosclerotic heart disease of native coronary artery without angina pectoris; E87.70 Fluid overload, unspecified; J44.9 Chronic obstructive pulmonary disease, unspecified; R53.83 Other fatigue; Z79.01 Long term (current) use of anticoagulants; Z87.891 Personal history of nicotine dependence; Z79.82 Long term (current) use of aspirin
CPT/HCPCS: 93701; G0463

== ENCOUNTER → 2018-02-12 | Outpatient (CLI) | payer MEDICARE ==
[2018-02-12 11:30] VITALS: BP 132/89
[2018-02-12 12:30] VITALS: BP 139/80
== END | disposition home or self-care (01) ==
LOC: CHF HDHVI 11:35
PROVIDERS: ATTEND Internal Medicine Cardiovascular Disease
DX: I13.0 Hypertensive heart and chronic kidney disease with heart failure and stage 1 through stage 4 chronic kidney disease, or unspecified chronic kidney disease (principal); E11.22 Type 2 diabetes mellitus with diabetic chronic kidney disease; N18.3 Chronic kidney disease, stage 3 (moderate); I50.32 Chronic diastolic (congestive) heart failure; I50.23 Acute on chronic systolic (congestive) heart failure; E87.70 Fluid overload, unspecified; I25.10 Atherosclerotic heart disease of native coronary artery without angina pectoris; J44.9 Chronic obstructive pulmonary disease, unspecified; I25.2 Old myocardial infarction; Z99.81 Dependence on supplemental oxygen; Z95.810 Presence of automatic (implantable) cardiac defibrillator; Z79.01 Long term (current) use of anticoagulants; Z79.82 Long term (current) use of aspirin; Z87.891 Personal history of nicotine dependence
CPT/HCPCS: G0463

== ENCOUNTER → 2018-02-19 | Outpatient (CLI) | payer MEDICARE ==
[~2018-02-19] MED LIST changes: -AMIODARONE HCL 200 MG TAB ONE; -AMIODARONE HCL 200 MG TAB PO ONE; +FUROSEMIDE 20 MG/2 ML VIAL IV ONE; +FUROSEMIDE 20 MG/2 ML VIAL ONE; +POTASSIUM CHL 20 Meq TABLET PO ONE
[2018-02-19 11:00] VITALS: BP 117/69
== END | disposition home or self-care (01) ==
LOC: LAB 09:29
PROVIDERS: ATTEND Internal Medicine Cardiovascular Disease
DX: I13.0 Hypertensive heart and chronic kidney disease with heart failure and stage 1 through stage 4 chronic kidney disease, or unspecified chronic kidney disease (principal); I50.23 Acute on chronic systolic (congestive) heart failure; N18.3 Chronic kidney disease, stage 3 (moderate); E29.1 Testicular hypofunction; E55.9 Vitamin D deficiency, unspecified; D51.9 Vitamin B12 deficiency anemia, unspecified; I25.10 Atherosclerotic heart disease of native coronary artery without angina pectoris; I50.32 Chronic diastolic (congestive) heart failure; J44.9 Chronic obstructive pulmonary disease, unspecified; I25.2 Old myocardial infarction; Z87.891 Personal history of nicotine dependence; E11.22 Type 2 diabetes mellitus with diabetic chronic kidney disease; Z68.34 Body mass index [BMI] 34.0-34.9, adult; Z99.81 Dependence on supplemental oxygen; Z79.01 Long term (current) use of anticoagulants; Z86.73 Personal history of transient ischemic attack (TIA), and cerebral infarction without residual deficits
CPT/HCPCS: 36415; 82306; 82607; 84403; 85610; 96374; G0463; J1940

== ENCOUNTER → 2018-02-24 | Outpatient (CLI) | payer MEDICARE ==
[~2018-02-24] MED LIST changes: -FUROSEMIDE 20 MG/2 ML VIAL IV ONE; -FUROSEMIDE 20 MG/2 ML VIAL ONE; -POTASSIUM CHL 20 Meq TABLET PO ONE
[2018-02-24 10:15] VITALS: BP 132/71
[2018-02-24 11:30] VITALS: BP 115/73
== END | disposition home or self-care (01) ==
LOC: CHF HDHVI 10:25
PROVIDERS: ATTEND Internal Medicine Cardiovascular Disease
DX: E29.1 Testicular hypofunction (principal); J44.9 Chronic obstructive pulmonary disease, unspecified; I13.0 Hypertensive heart and chronic kidney disease with heart failure and stage 1 through stage 4 chronic kidney disease, or unspecified chronic kidney disease; N18.3 Chronic kidney disease, stage 3 (moderate); I50.23 Acute on chronic systolic (congestive) heart failure; I48.91 Unspecified atrial fibrillation; Z79.01 Long term (current) use of anticoagulants
CPT/HCPCS: 36415; 84403; 85610; G0463

== ENCOUNTER → 2018-02-27 | Outpatient (CLI) | payer MEDICARE ==
[2018-02-27 09:38] VITALS: BP 120/58
== END | disposition home or self-care (01) ==
LOC: CHF HDHVI 09:52
PROVIDERS: ATTEND Internal Medicine Cardiovascular Disease
DX: I13.0 Hypertensive heart and chronic kidney disease with heart failure and stage 1 through stage 4 chronic kidney disease, or unspecified chronic kidney disease (principal); E11.22 Type 2 diabetes mellitus with diabetic chronic kidney disease; N18.3 Chronic kidney disease, stage 3 (moderate); I50.9 Heart failure, unspecified; Z79.4 Long term (current) use of insulin; Z79.82 Long term (current) use of aspirin
CPT/HCPCS: G0463

== ENCOUNTER → 2018-03-03 | Outpatient (CLI) | payer MEDICARE ==
[2018-03-03 10:15] VITALS: BP 125/67
[2018-03-03 13:00] VITALS: BP 125/67
[2018-03-03 16:09] LABS: Basophils # (auto) 0 uL; Basophils % (auto) 0.6 % (0.0-2.0); Eosinophils # (auto) 0 uL; Eosinophils % (auto) 0.5 % (0.0-7.0); Hemoglobin 15.7 g/dL (13.5-17.5); Lymphocytes # (auto) 1.3 uL; Lymphocytes % (auto) 20.1 % (10.0-50.0); Mean Corpuscular Hgb Conc. 33.3 g/dL (32.0-36.0); Mean Corpuscular Volume 84.1 fL (80.0-100.0); Monocytes # (auto) 0.7 uL; Monocytes % (auto) 10.4 % (0.0-12.0); Neutrophils # (auto) 4.3 uL; Neutrophils % (auto) 68.4 % (37.0-80.0); Nucleated Red Blood Cells % 0.7 %; Platelet Count (auto) 230 10^3/uL (140-450); Red Blood Cells 5.59 10^6/uL (4.5-5.90); Red Cell Distribution Width 18.4 % (11.8-14.3); White Blood Cell 6.3 10^3/uL (4.4-10.8)
[2018-03-03 16:15] LABS: BUN/Creatinine Ratio 21.1; Calcium 9.2 mg/dL (8.5-10.1); Potassium 4.3 mmol/L (3.5-5.1)
[2018-03-03 16:26] LABS: INR 1.47 (0.9-1.15); Partial Thromboplastin Time 38.3 sec (23.78-33.04); Prothrombin Time 15.4 sec (9.27-12.13)
== END | disposition home or self-care (01) ==
LOC: CHF HDHVI 11:42
PROVIDERS: ATTEND Internal Medicine Cardiovascular Disease
DX: Z01.818 Encounter for other preprocedural examination (principal); I51.7 Cardiomegaly
CPT/HCPCS: 36415; 80048; 85025; 85610; 85730; 93005; G0463; 71046

== ENCOUNTER 2018-03-04 07:03 | Inpatient (IN) | payer MEDICARE ==
[~2018-03-04] VITALS: Ht 172.7 cm; Wt 117.1 kg
[~2018-03-04 07:03] MED LIST changes: -LOSA25TA9 PO; -POTA8TAB2 PO; -SPIR25TA88 PO
[2018-03-04 08:00] LABS: Basophils # (auto) 0 uL; Basophils % (auto) 0.8 % (0.0-2.0); Eosinophils # (auto) 0.1 uL; Eosinophils % (auto) 1.4 % (0.0-7.0); Hematocrit 43.8 % (41.0-53.0); Hemoglobin 14.3 g/dL (13.5-17.5); Lymphocytes # (auto) 1.3 uL; Lymphocytes % (auto) 22.7 % (10.0-50.0); Mean Corpuscular Hemoglobin 27.3 pg (28.0-32.0); Mean Corpuscular Hgb Conc. 32.6 g/dL (32.0-36.0); Mean Corpuscular Volume 83.8 fL (80.0-100.0); Monocytes # (auto) 0.6 uL; Monocytes % (auto) 10.5 % (0.0-12.0); Neutrophils # (auto) 3.8 uL; Neutrophils % (auto) 64.6 % (37.0-80.0); Nucleated Red Blood Cells % 0.1 %; Platelet Count (auto) 201 10^3/uL (140-450); Red Blood Cells 5.23 10^6/uL (4.5-5.90); White Blood Cell 5.9 10^3/uL (4.4-10.8)
[2018-03-04 08:20] LABS: Albumin 3.5 g/dL (3.4-5.0); BUN/Creatinine Ratio 17.6; Bilirubin, Total 0.3 mg/dL (0.2-1.0); Calcium 8.7 mg/dL (8.5-10.1); Potassium 4.3 mmol/L (3.5-5.1)
[2018-03-04] MEDS ORDERED: NITROGLYCERIN 0.4 MG SL TAB SL PRN (09:15)
[2018-03-04] MEDS ORDERED: MORPHINE SULF(PF) 0.5MG/ML 10ML VIAL IV PRN (09:15)
[2018-03-04] MEDS ORDERED: SODIUM CHLORIDE 0.9% 1,000 ML IV ONE (09:15)
[2018-03-04] MEDS ORDERED: ceFAZolin 1GM/100ML 50 ML IV ONE (09:15)
[2018-03-04] MEDS ORDERED: SACU1TAB PO (10:58)
[2018-03-04] MEDS ORDERED: LOSA25TA9 PO (10:58)
[2018-03-04] MEDS ORDERED: SPIR25TA88 PO (11:01)
[2018-03-04] MEDS ORDERED: POTA8TAB2 PO (11:01)
[2018-03-04 11:17] LABS: Urine Bacteria NONE SEEN /hpf (None Seen); Urine Blood Negative /uL (Negative); Urine Specific Gravity 1.024 (1.001-1.035); Urine WBC <1 /hpf (0 - 3)
[2018-03-04] MEDS: ceFAZolin 1GM/100ML 50 ML IV SCH (16:43)
[2018-03-04 17:00] VITALS: BP 118/76
[2018-03-04] MEDS: IBUPROFEN 400 MG TAB PO SCH (21:23)
[2018-03-04 23:09] VITALS: BP 114/68
[2018-03-05] MEDS: ceFAZolin 1GM/100ML 50 ML IV SCH ×2 (00:47→20:11)
[2018-03-05 05:24] VITALS: BP 115/71
[2018-03-05] MEDS: IBUPROFEN 400 MG TAB PO SCH ×4 (05:58→21:55)
[2018-03-05 06:39] LABS: INR 1.19 (0.9-1.15); Partial Thromboplastin Time 32.7 sec (23.78-33.04); Prothrombin Time 12.6 sec (9.27-12.13)
[2018-03-05] MEDS ORDERED: LIDOCAINE 2%HCL (LOCAL ANESTH.) INJ 20ML MDV ONE (07:17)
[2018-03-05] MEDS ORDERED: ceFAZolin 1GM/100ML 50 ML IV ONE (07:30)
[2018-03-05] MEDS ORDERED: VANCOMYCIN HCL 1000 MG VL ONE (07:41)
[2018-03-05] MEDS ORDERED: VANCOMYCIN 1GM/250ML 250 ML IV ONE ×2 (07:42→20:00)
[2018-03-05] MEDS ORDERED: MIDAZOLAM HCL 1MG/1ML-2 ML VIAL ONE (07:42)
[2018-03-05] MEDS ORDERED: fentaNYL CITRATE 100 MCG/2 ML VL ONE (07:42)
[2018-03-05] MEDS ORDERED: ONDANSETRON HCL 4 MG/2 ML VIAL ONE (09:54)
[2018-03-05 12:35] VITALS: BP 118/92
[2018-03-05 17:00] VITALS: BP 113/58
[2018-03-05] MEDS ORDERED: HYDROcodone-ACET 10/325MG TAB PO PRN (19:15)
[2018-03-05 20:15] VITALS: BP 123/74
[2018-03-05 22:00] VITALS: BP 123/74
[2018-03-06] MEDS: ceFAZolin 1GM/100ML 50 ML IV SCH ×2 (01:28→09:30)
[2018-03-06] MEDS ORDERED: ONDANSETRON HCL 4 MG/2 ML VIAL IV ONE ×2 (03:00→12:45)
[2018-03-06] MEDS ORDERED: ACETAMINOPHEN 325 MG TAB PO ONE (03:00)
[2018-03-06 05:00] VITALS: BP 123/75
[2018-03-06] MEDS: IBUPROFEN 400 MG TAB PO SCH ×2 (05:56→11:57)
[2018-03-06 08:00] LABS: Basophils # (auto) 0 uL; Basophils % (auto) 0.5 % (0.0-2.0); Eosinophils # (auto) 0.1 uL; Eosinophils % (auto) 2.1 % (0.0-7.0); Hematocrit 38.5 % (41.0-53.0); Hemoglobin 12.7 g/dL (13.5-17.5); Lymphocytes # (auto) 0.9 uL; Lymphocytes % (auto) 16.5 % (10.0-50.0); Mean Corpuscular Hemoglobin 27.8 pg (28.0-32.0); Mean Corpuscular Hgb Conc. 32.9 g/dL (32.0-36.0); Mean Corpuscular Volume 84.4 fL (80.0-100.0); Monocytes # (auto) 0.6 uL; Monocytes % (auto) 10.3 % (0.0-12.0); Neutrophils % (auto) 70.6 % (37.0-80.0); Platelet Count (auto) 167 10^3/uL (140-450); Red Blood Cells 4.56 10^6/uL (4.5-5.90); Red Cell Distribution Width 18.3 % (11.8-14.3); White Blood Cell 5.6 10^3/uL (4.4-10.8)
[2018-03-06 08:16] LABS: BUN/Creatinine Ratio 12.8; Potassium 4.5 mmol/L (3.5-5.1)
[2018-03-06 09:00] VITALS: BP 111/69
[2018-03-06 13:00] VITALS: BP 127/70
[2018-03-06 16:55] VITALS: BP 123/74
== END 2018-03-06 18:10 | disposition home or self-care (01) | DRG 245 ==
LOC: ER 07:06 → TELE 07:08 → TELE-WESTW 14:38
PROVIDERS: ADMIT Internal Medicine Cardiovascular Disease; ATTEND Internal Medicine Cardiovascular Disease
PROC: 0JPT0PZ Removal of Cardiac Rhythm Related Device from Trunk Subcutaneous Tissue and Fascia, Open Approach (ICD-10-PCS; principal; 2018-03-05)
PROC: 0JH609Z Insertion of Cardiac Resynchronization Defibrillator Pulse Generator into Chest Subcutaneous Tissue and Fascia, Open Approach (ICD-10-PCS; 2018-03-05)
DX: Z45.02 Encounter for adjustment and management of automatic implantable cardiac defibrillator (principal); I50.21 Acute systolic (congestive) heart failure; I42.0 Dilated cardiomyopathy; I11.0 Hypertensive heart disease with heart failure; J45.909 Unspecified asthma, uncomplicated; F41.9 Anxiety disorder, unspecified; E78.5 Hyperlipidemia, unspecified; R74.8 Abnormal levels of other serum enzymes; I20.9 Angina pectoris, unspecified; I48.0 Paroxysmal atrial fibrillation; N28.9 Disorder of kidney and ureter, unspecified; Z91.012 Allergy to eggs; Z79.899 Other long term (current) drug therapy
CPT/HCPCS: 36415; 71046; 80048; 80053; 81001; 84484; 85025; 85610; 85730; 86850; 86900; 86901; 93005; 96374; 99152; G0463; J0690; J2250; J2405

== ENCOUNTER → 2018-03-09 | Outpatient (CLI) | payer MEDICARE ==
[~2018-03-09] MED LIST changes: +CYANOCOBALAMIN (B-12) 1000 MCG/1 ML VIAL IM ONE; +CYANOCOBALAMIN (B-12) 1000 MCG/1 ML VIAL ONE; +FUROSEMIDE 100 MG/10ML VIAL IV ONE; +FUROSEMIDE 40 MG/4 ML VIAL ONE; +LOSA25TA9 PO; -LOSA50TA6 PO; +POTA8TAB2 PO; +POTASSIUM CHL 20 Meq TABLET PO ONE; +SPIR25TA88 PO
[2018-03-09 09:40] VITALS: BP 136/81
[2018-03-09 16:29] VITALS: BP 123/84
== END | disposition home or self-care (01) ==
LOC: CHF HDHVI 09:43
PROVIDERS: ATTEND Internal Medicine Cardiovascular Disease
DX: I13.0 Hypertensive heart and chronic kidney disease with heart failure and stage 1 through stage 4 chronic kidney disease, or unspecified chronic kidney disease (principal); E11.22 Type 2 diabetes mellitus with diabetic chronic kidney disease; N18.3 Chronic kidney disease, stage 3 (moderate); I50.23 Acute on chronic systolic (congestive) heart failure; R53.81 Other malaise; R53.83 Other fatigue; I25.10 Atherosclerotic heart disease of native coronary artery without angina pectoris; I42.0 Dilated cardiomyopathy; I25.2 Old myocardial infarction; I48.0 Paroxysmal atrial fibrillation; J44.9 Chronic obstructive pulmonary disease, unspecified; E78.5 Hyperlipidemia, unspecified; Z79.899 Other long term (current) drug therapy; Z79.82 Long term (current) use of aspirin; Z79.4 Long term (current) use of insulin; Z79.01 Long term (current) use of anticoagulants; Z68.34 Body mass index [BMI] 34.0-34.9, adult; Z87.891 Personal history of nicotine dependence; Z95.810 Presence of automatic (implantable) cardiac defibrillator; Z99.81 Dependence on supplemental oxygen
CPT/HCPCS: 85610; 96372; 96374; G0463; J1940; J3420

== ENCOUNTER → 2018-03-12 | Outpatient (CLI) | payer MEDICARE ==
[~2018-03-12] MED LIST changes: -CYANOCOBALAMIN (B-12) 1000 MCG/1 ML VIAL IM ONE; -CYANOCOBALAMIN (B-12) 1000 MCG/1 ML VIAL ONE; -FUROSEMIDE 100 MG/10ML VIAL IV ONE; +FUROSEMIDE 40 MG/4 ML VIAL IV SCH; +POTASSIUM CHL 10 Meq TABLET PO ONE; +POTASSIUM CHL 10 Meq TABLET PO SCH; -POTASSIUM CHL 20 Meq TABLET PO ONE; +SILVER SULFADIAZINE 1 % TOPICAL CREAM 50GM TOP ONE; +SILVER SULFADIAZINE 1 % TOPICAL CREAM 50GM TOP SCH
[2018-03-12 12:40] VITALS: BP 109/76
[2018-03-12 13:00] VITALS: BP 109/76
[2018-03-12 14:10] VITALS: BP 107/70
[2018-03-12 16:47] LABS: Basophils # (auto) 0 uL; Basophils % (auto) 0.6 % (0.0-2.0); Eosinophils # (auto) 0 uL; Eosinophils % (auto) 0.6 % (0.0-7.0); Hematocrit 42.2 % (41.0-53.0); Hemoglobin 13.9 g/dL (13.5-17.5); Lymphocytes # (auto) 1.3 uL; Lymphocytes % (auto) 17.9 % (10.0-50.0); Mean Corpuscular Hemoglobin 27.7 pg (28.0-32.0); Mean Corpuscular Hgb Conc. 32.9 g/dL (32.0-36.0); Mean Corpuscular Volume 84.2 fL (80.0-100.0); Monocytes # (auto) 0.7 uL; Monocytes % (auto) 10.4 % (0.0-12.0); Neutrophils % (auto) 70.5 % (37.0-80.0); Nucleated Red Blood Cells % 0.4 %; Platelet Count (auto) 253 10^3/uL (140-450); Red Blood Cells 5.02 10^6/uL (4.5-5.90); Red Cell Distribution Width 17.9 % (11.8-14.3); White Blood Cell 7.1 10^3/uL (4.4-10.8)
[2018-03-12 16:51] LABS: BUN/Creatinine Ratio 15.6; Calcium 8.5 mg/dL (8.5-10.1); Potassium 3.9 mmol/L (3.5-5.1)
== END | disposition home or self-care (01) ==
LOC: CHF HDHVI 13:06
PROVIDERS: ATTEND Internal Medicine Cardiovascular Disease
DX: I13.0 Hypertensive heart and chronic kidney disease with heart failure and stage 1 through stage 4 chronic kidney disease, or unspecified chronic kidney disease (principal); I50.23 Acute on chronic systolic (congestive) heart failure; I50.32 Chronic diastolic (congestive) heart failure; N18.3 Chronic kidney disease, stage 3 (moderate); D64.9 Anemia, unspecified; E11.22 Type 2 diabetes mellitus with diabetic chronic kidney disease; J44.9 Chronic obstructive pulmonary disease, unspecified; E78.5 Hyperlipidemia, unspecified; I48.0 Paroxysmal atrial fibrillation; F41.9 Anxiety disorder, unspecified; D51.9 Vitamin B12 deficiency anemia, unspecified; E87.70 Fluid overload, unspecified; F12.90 Cannabis use, unspecified, uncomplicated; I25.2 Old myocardial infarction; Z87.891 Personal history of nicotine dependence; Z79.4 Long term (current) use of insulin; Z79.01 Long term (current) use of anticoagulants; Z79.82 Long term (current) use of aspirin; Z68.34 Body mass index [BMI] 34.0-34.9, adult; Z95.810 Presence of automatic (implantable) cardiac defibrillator; Z99.81 Dependence on supplemental oxygen
CPT/HCPCS: 36415; 80048; 85025; 85610; 96374; G0463; J1940

== ENCOUNTER → 2018-03-13 | Outpatient (CLI) | payer MEDICARE ==
[~2018-03-13] MED LIST changes: -FUROSEMIDE 40 MG/4 ML VIAL IV SCH; -FUROSEMIDE 40 MG/4 ML VIAL ONE; -POTASSIUM CHL 10 Meq TABLET PO ONE; -POTASSIUM CHL 10 Meq TABLET PO SCH; -SILVER SULFADIAZINE 1 % TOPICAL CREAM 50GM TOP ONE; -SILVER SULFADIAZINE 1 % TOPICAL CREAM 50GM TOP SCH
[2018-03-13 09:30] VITALS: BP 111/64
[2018-03-13 10:00] VITALS: BP 110/66
== END | disposition home or self-care (01) ==
LOC: CHF HDHVI 09:52
PROVIDERS: ATTEND Internal Medicine Cardiovascular Disease
DX: I13.0 Hypertensive heart and chronic kidney disease with heart failure and stage 1 through stage 4 chronic kidney disease, or unspecified chronic kidney disease (principal); N18.3 Chronic kidney disease, stage 3 (moderate); I50.9 Heart failure, unspecified; Z95.0 Presence of cardiac pacemaker; E11.22 Type 2 diabetes mellitus with diabetic chronic kidney disease; Z79.01 Long term (current) use of anticoagulants; Z79.899 Other long term (current) drug therapy
CPT/HCPCS: G0463

== ENCOUNTER → 2018-03-16 | Outpatient (CLI) | payer MEDICARE ==
[~2018-03-16] MED LIST changes: +CEPHALEXIN 250 MG CAP PO ONE
[2018-03-16 10:30] VITALS: BP 103/64
[2018-03-16 12:10] VITALS: BP 107/77
== END | disposition home or self-care (01) ==
LOC: CHF HDHVI 10:51
PROVIDERS: ATTEND Internal Medicine Cardiovascular Disease
DX: I25.10 Atherosclerotic heart disease of native coronary artery without angina pectoris (principal); I13.0 Hypertensive heart and chronic kidney disease with heart failure and stage 1 through stage 4 chronic kidney disease, or unspecified chronic kidney disease; I50.9 Heart failure, unspecified; N18.3 Chronic kidney disease, stage 3 (moderate); E78.5 Hyperlipidemia, unspecified; Z79.899 Other long term (current) drug therapy; Z79.01 Long term (current) use of anticoagulants; Z79.82 Long term (current) use of aspirin
CPT/HCPCS: G0463

== ENCOUNTER → 2018-03-20 | Outpatient (CLI) | payer MEDICARE ==
[~2018-03-20] MED LIST changes: -CEPHALEXIN 250 MG CAP PO ONE
[2018-03-20 11:55] VITALS: BP 100/69
[2018-03-20 12:16] LABS: Potassium 3.8 mmol/L (3.5-5.1)
== END | disposition home or self-care (01) ==
LOC: CHF HDHVI 09:26
PROVIDERS: ATTEND Internal Medicine Cardiovascular Disease
DX: I13.0 Hypertensive heart and chronic kidney disease with heart failure and stage 1 through stage 4 chronic kidney disease, or unspecified chronic kidney disease (principal); E11.22 Type 2 diabetes mellitus with diabetic chronic kidney disease; I50.9 Heart failure, unspecified; N18.3 Chronic kidney disease, stage 3 (moderate); I25.10 Atherosclerotic heart disease of native coronary artery without angina pectoris; I42.9 Cardiomyopathy, unspecified; J44.9 Chronic obstructive pulmonary disease, unspecified; Z79.899 Other long term (current) drug therapy
CPT/HCPCS: 36415; 82565; 84132; 84520; 85610; 93701; G0463

== ENCOUNTER → 2018-03-26 | Outpatient (CLI) | payer MEDICARE ==
[~2018-03-26] MED LIST changes: +CYANOCOBALAMIN (B-12) 1000 MCG/1 ML VIAL IM ONE; +CYANOCOBALAMIN (B-12) 1000 MCG/1 ML VIAL ONE; +FUROSEMIDE 40 MG/4 ML VIAL IV ONE; +FUROSEMIDE 40 MG/4 ML VIAL ONE; +POTASSIUM CHL 20 Meq TABLET PO ONE
[2018-03-26 13:30] VITALS: BP 120/83
== END | disposition home or self-care (01) ==
LOC: CHF HDHVI 11:51
PROVIDERS: ATTEND Internal Medicine Cardiovascular Disease
DX: I13.0 Hypertensive heart and chronic kidney disease with heart failure and stage 1 through stage 4 chronic kidney disease, or unspecified chronic kidney disease (principal); I50.23 Acute on chronic systolic (congestive) heart failure; E11.22 Type 2 diabetes mellitus with diabetic chronic kidney disease; N18.3 Chronic kidney disease, stage 3 (moderate); R53.83 Other fatigue; E87.70 Fluid overload, unspecified; I50.32 Chronic diastolic (congestive) heart failure; I25.10 Atherosclerotic heart disease of native coronary artery without angina pectoris; J44.9 Chronic obstructive pulmonary disease, unspecified; I42.9 Cardiomyopathy, unspecified; E78.5 Hyperlipidemia, unspecified; F41.9 Anxiety disorder, unspecified; I48.0 Paroxysmal atrial fibrillation; I25.2 Old myocardial infarction; Z79.82 Long term (current) use of aspirin; Z79.01 Long term (current) use of anticoagulants; Z99.81 Dependence on supplemental oxygen; Z68.34 Body mass index [BMI] 34.0-34.9, adult; Z87.891 Personal history of nicotine dependence; Z86.73 Personal history of transient ischemic attack (TIA), and cerebral infarction without residual deficits
CPT/HCPCS: 85610; 96372; 96374; G0463; J1940; J3420

== ENCOUNTER → 2018-04-20 | Outpatient (CLI) | payer MEDICARE ==
[~2018-04-20] MED LIST changes: -CYANOCOBALAMIN (B-12) 1000 MCG/1 ML VIAL IM ONE; -CYANOCOBALAMIN (B-12) 1000 MCG/1 ML VIAL ONE; -FUROSEMIDE 40 MG/4 ML VIAL IV ONE; -FUROSEMIDE 40 MG/4 ML VIAL ONE; -POTASSIUM CHL 20 Meq TABLET PO ONE
[2018-04-20 13:49] VITALS: BP 135/90
== END | disposition home or self-care (01) ==
LOC: CHF HDHVI 12:23
PROVIDERS: ATTEND Internal Medicine Cardiovascular Disease
DX: I25.10 Atherosclerotic heart disease of native coronary artery without angina pectoris (principal); I50.9 Heart failure, unspecified
CPT/HCPCS: 85610; 93701; G0463

== ENCOUNTER → 2018-04-21 | Outpatient (CLI) | payer MEDICARE ==
[2018-04-21 12:40] VITALS: BP 122/79
[2018-04-21 16:07] LABS: Basophils # (auto) 0.1 uL; Eosinophils # (auto) 0.1 uL; Eosinophils % (auto) 2.1 % (0.0-7.0); Hematocrit 43.8 % (41.0-53.0); Hemoglobin 14.5 g/dL (13.5-17.5); Lymphocytes # (auto) 1.3 uL; Mean Corpuscular Hemoglobin 28.3 pg (28.0-32.0); Mean Corpuscular Hgb Conc. 33.2 g/dL (32.0-36.0); Mean Corpuscular Volume 85.4 fL (80.0-100.0); Monocytes # (auto) 0.4 uL; Monocytes % (auto) 8.3 % (0.0-12.0); Neutrophils # (auto) 3.4 uL; Neutrophils % (auto) 64.6 % (37.0-80.0); Nucleated Red Blood Cells % 0.7 %; Platelet Count (auto) 200 10^3/uL (140-450); Red Blood Cells 5.13 10^6/uL (4.5-5.90); Red Cell Distribution Width 17.4 % (11.8-14.3); White Blood Cell 5.2 10^3/uL (4.4-10.8)
[2018-04-21 16:13] LABS: BUN/Creatinine Ratio 10.2; Calcium 8.5 mg/dL (8.5-10.1); Magnesium 2.7 mg/dL (1.6-2.6); Potassium 3.8 mmol/L (3.5-5.1)
[2018-04-23 09:34] LABS: Hepatitis B Surface Antibody Negative
[2018-04-23 09:52] LABS: Hepatitis A Total Antibody Negative
[2018-04-23 10:52] LABS: Hepatitis B Core Total AB Negative; Hepatitis B Surface Antigen Negative (Negative); Hepatitis C Antibody Negative (Negative)
== END | disposition home or self-care (01) ==
LOC: CHF HDHVI 12:25
PROVIDERS: ATTEND Internal Medicine Cardiovascular Disease
DX: I13.0 Hypertensive heart and chronic kidney disease with heart failure and stage 1 through stage 4 chronic kidney disease, or unspecified chronic kidney disease (principal); E11.22 Type 2 diabetes mellitus with diabetic chronic kidney disease; N18.3 Chronic kidney disease, stage 3 (moderate); I50.9 Heart failure, unspecified; E78.00 Pure hypercholesterolemia, unspecified; D64.9 Anemia, unspecified; C61 Malignant neoplasm of prostate; E83.40 Disorders of magnesium metabolism, unspecified; E03.9 Hypothyroidism, unspecified; I25.10 Atherosclerotic heart disease of native coronary artery without angina pectoris; Z94.1 Heart transplant status
CPT/HCPCS: 36415; 80048; 80061; 83036; 83735; 84153; 84403; 84443; 85025; 86703; 86704; 86706; 86708; 86803; 86850; 86900; 86901; 87340; G0463

== ENCOUNTER → 2018-05-01 | Outpatient (CLI) | payer MEDICARE ==
[2018-05-01 13:45] VITALS: BP 113/77
== END | disposition home or self-care (01) ==
LOC: CHF HDHVI 12:55
PROVIDERS: ATTEND Internal Medicine Cardiovascular Disease
DX: I50.9 Heart failure, unspecified (principal)
CPT/HCPCS: 85610; G0463

== ENCOUNTER → 2018-05-05 | Outpatient (CLI) | payer MEDICARE ==
[~2018-05-05] MED LIST changes: +CYANOCOBALAMIN (B-12) 1000 MCG/1 ML VIAL IM ONE; +CYANOCOBALAMIN (B-12) 1000 MCG/1 ML VIAL ONE; +FUROSEMIDE 40 MG/4 ML VIAL IV ONE; +FUROSEMIDE 40 MG/4 ML VIAL ONE; +POTASSIUM CHL 20 Meq TABLET PO ONE
[2018-05-05 10:10] VITALS: BP 121/64
[2018-05-05 11:58] VITALS: BP 103/70
[2018-05-05 15:58] LABS: Basophils # (auto) 0 uL; Basophils % (auto) 0.6 % (0.0-2.0); Eosinophils # (auto) 0.1 uL; Hematocrit 45.9 % (41.0-53.0); Hemoglobin 15.3 g/dL (13.5-17.5); Lymphocytes # (auto) 1.3 uL; Lymphocytes % (auto) 23.1 % (10.0-50.0); Mean Corpuscular Hemoglobin 28.3 pg (28.0-32.0); Mean Corpuscular Hgb Conc. 33.4 g/dL (32.0-36.0); Mean Corpuscular Volume 84.8 fL (80.0-100.0); Monocytes # (auto) 0.7 uL; Monocytes % (auto) 12.8 % (0.0-12.0); Neutrophils # (auto) 3.6 uL; Neutrophils % (auto) 62.5 % (37.0-80.0); Nucleated Red Blood Cells % 0.8 %; Platelet Count (auto) 225 10^3/uL (140-450); Red Blood Cells 5.41 10^6/uL (4.5-5.90); Red Cell Distribution Width 17.6 % (11.8-14.3); White Blood Cell 5.8 10^3/uL (4.4-10.8)
[2018-05-05 16:11] LABS: Anion Gap 10 (5-15); BUN/Creatinine Ratio 13.3; Blood Urea Nitrogen 20 mg/dL (7-18); Carbon Dioxide 24 mmol/L (21-32); Chloride 104 mmol/L (98-107); GFR African American 63 mL/min; GFR Non-African American 52 mL/min; Glucose 80 mg/dL (74-106); Sodium 138 mmol/L (136-145)
== END | disposition home or self-care (01) ==
LOC: CHF HDHVI 10:13
PROVIDERS: ATTEND Internal Medicine Cardiovascular Disease
DX: E87.70 Fluid overload, unspecified (principal); D64.9 Anemia, unspecified; I10 Essential (primary) hypertension; R53.83 Other fatigue; I13.0 Hypertensive heart and chronic kidney disease with heart failure and stage 1 through stage 4 chronic kidney disease, or unspecified chronic kidney disease; E11.22 Type 2 diabetes mellitus with diabetic chronic kidney disease; N18.3 Chronic kidney disease, stage 3 (moderate); I50.23 Acute on chronic systolic (congestive) heart failure; I50.32 Chronic diastolic (congestive) heart failure; J44.9 Chronic obstructive pulmonary disease, unspecified; I25.10 Atherosclerotic heart disease of native coronary artery without angina pectoris; I25.2 Old myocardial infarction; I48.91 Unspecified atrial fibrillation; E03.9 Hypothyroidism, unspecified; E78.00 Pure hypercholesterolemia, unspecified; E78.5 Hyperlipidemia, unspecified; F41.9 Anxiety disorder, unspecified; Z79.4 Long term (current) use of insulin; Z79.01 Long term (current) use of anticoagulants; Z79.82 Long term (current) use of aspirin; Z68.34 Body mass index [BMI] 34.0-34.9, adult; Z87.891 Personal history of nicotine dependence; Z99.81 Dependence on supplemental oxygen
CPT/HCPCS: 36415; 80048; 85025; 85610; 96372; 96374; G0463; J1940; J3420

== ENCOUNTER → 2018-05-07 | Outpatient (CLI) | payer MEDICARE ==
[~2018-05-07] MED LIST changes: -CYANOCOBALAMIN (B-12) 1000 MCG/1 ML VIAL IM ONE; -CYANOCOBALAMIN (B-12) 1000 MCG/1 ML VIAL ONE; +FUROSEMIDE 100 MG/10ML VIAL IV ONE; -FUROSEMIDE 40 MG/4 ML VIAL IV ONE
[2018-05-07 14:42] VITALS: BP 127/72
== END | disposition home or self-care (01) ==
LOC: CHF HDHVI 13:47
PROVIDERS: ATTEND Internal Medicine Cardiovascular Disease
DX: I25.10 Atherosclerotic heart disease of native coronary artery without angina pectoris (principal); I13.0 Hypertensive heart and chronic kidney disease with heart failure and stage 1 through stage 4 chronic kidney disease, or unspecified chronic kidney disease; E11.22 Type 2 diabetes mellitus with diabetic chronic kidney disease; N18.3 Chronic kidney disease, stage 3 (moderate); I50.23 Acute on chronic systolic (congestive) heart failure; I50.32 Chronic diastolic (congestive) heart failure; E87.70 Fluid overload, unspecified; J44.9 Chronic obstructive pulmonary disease, unspecified; I25.2 Old myocardial infarction; E78.5 Hyperlipidemia, unspecified; E03.9 Hypothyroidism, unspecified; E78.00 Pure hypercholesterolemia, unspecified; I48.91 Unspecified atrial fibrillation; F41.9 Anxiety disorder, unspecified; Z79.4 Long term (current) use of insulin; Z79.01 Long term (current) use of anticoagulants; Z79.82 Long term (current) use of aspirin; Z87.891 Personal history of nicotine dependence; Z99.81 Dependence on supplemental oxygen
CPT/HCPCS: 96374; G0463; J1940

== ENCOUNTER → 2018-05-27 | Outpatient (CLI) | payer MEDICARE ==
[~2018-05-27] MED LIST changes: +AMIODARONE HCL 200 MG TAB ONE; +AMIODARONE HCL 200 MG TAB PO ONE; +LOSA25TA40 PO; -LOSA25TA9 PO
[2018-05-27 14:05] VITALS: BP 128/83
[2018-05-27 16:15] LABS: Basophils # (auto) 0 uL; Basophils % (auto) 0.6 % (0.0-2.0); Eosinophils # (auto) 0.1 uL; Eosinophils % (auto) 1.2 % (0.0-7.0); Hematocrit 46.5 % (41.0-53.0); Hemoglobin 15.2 g/dL (13.5-17.5); Lymphocytes # (auto) 1.2 uL; Mean Corpuscular Hemoglobin 27.9 pg (28.0-32.0); Mean Corpuscular Hgb Conc. 32.7 g/dL (32.0-36.0); Mean Corpuscular Volume 85.3 fL (80.0-100.0); Monocytes # (auto) 0.7 uL; Monocytes % (auto) 11.3 % (0.0-12.0); Neutrophils # (auto) 4.3 uL; Neutrophils % (auto) 67.9 % (37.0-80.0); Nucleated Red Blood Cells % 0.5 %; Platelet Count (auto) 209 10^3/uL (140-450); Red Blood Cells 5.45 10^6/uL (4.5-5.90); Red Cell Distribution Width 17.5 % (11.8-14.3); White Blood Cell 6.3 10^3/uL (4.4-10.8)
[2018-05-27 16:25] LABS: BUN/Creatinine Ratio 14.1; Calcium 9.2 mg/dL (8.5-10.1); Potassium 4.3 mmol/L (3.5-5.1)
== END | disposition home or self-care (01) ==
LOC: CHF HDHVI 13:20
PROVIDERS: ATTEND Internal Medicine Cardiovascular Disease
DX: I25.10 Atherosclerotic heart disease of native coronary artery without angina pectoris (principal); I13.0 Hypertensive heart and chronic kidney disease with heart failure and stage 1 through stage 4 chronic kidney disease, or unspecified chronic kidney disease; E11.22 Type 2 diabetes mellitus with diabetic chronic kidney disease; N18.3 Chronic kidney disease, stage 3 (moderate); I50.23 Acute on chronic systolic (congestive) heart failure; I50.32 Chronic diastolic (congestive) heart failure; D64.9 Anemia, unspecified; I48.91 Unspecified atrial fibrillation; I25.2 Old myocardial infarction; E78.00 Pure hypercholesterolemia, unspecified; E78.5 Hyperlipidemia, unspecified; E03.9 Hypothyroidism, unspecified; F41.9 Anxiety disorder, unspecified; Z79.01 Long term (current) use of anticoagulants; Z79.82 Long term (current) use of aspirin; Z79.4 Long term (current) use of insulin; Z87.891 Personal history of nicotine dependence; Z68.34 Body mass index [BMI] 34.0-34.9, adult; Z99.81 Dependence on supplemental oxygen; Z94.1 Heart transplant status; Z86.73 Personal history of transient ischemic attack (TIA), and cerebral infarction without residual deficits
CPT/HCPCS: 36415; 80048; 85025; 85610; 93701; 96374; G0463; J1940

== ENCOUNTER → 2018-06-02 | Outpatient (CLI) | payer MEDICARE ==
[~2018-06-02] MED LIST changes: -AMIODARONE HCL 200 MG TAB ONE; -AMIODARONE HCL 200 MG TAB PO ONE; -FUROSEMIDE 100 MG/10ML VIAL IV ONE; +FUROSEMIDE 40 MG/4 ML VIAL IV ONE; +FUROSEMIDE INJECTION 0 ML ONE; +FUROSEMIDE INJECTION 10 ML ONE; +FUROSEMIDE INJECTION 100 MG in SODIUM CHL 0.9% 100 ML IV SCH; +ONDANSETRON HCL 4 MG/2 ML VIAL IV ONE; +ONDANSETRON HCL 4 MG/2 ML VIAL ONE
[2018-06-02 12:49] LABS: Basophils # (auto) 0 uL; Basophils % (auto) 0.6 % (0.0-2.0); Eosinophils # (auto) 0.1 uL; Eosinophils % (auto) 1.6 % (0.0-7.0); Hematocrit 43.6 % (41.0-53.0); Hemoglobin 14.5 g/dL (13.5-17.5); Lymphocytes # (auto) 1.2 uL; Lymphocytes % (auto) 20.3 % (10.0-50.0); Mean Corpuscular Hemoglobin 28.5 pg (28.0-32.0); Mean Corpuscular Hgb Conc. 33.4 g/dL (32.0-36.0); Mean Corpuscular Volume 85.2 fL (80.0-100.0); Monocytes # (auto) 0.6 uL; Monocytes % (auto) 10.9 % (0.0-12.0); Neutrophils # (auto) 3.8 uL; Neutrophils % (auto) 66.6 % (37.0-80.0); Nucleated Red Blood Cells % 0.3 %; Platelet Count (auto) 215 10^3/uL (140-450); Red Blood Cells 5.11 10^6/uL (4.5-5.90); Red Cell Distribution Width 17.4 % (11.8-14.3); White Blood Cell 5.7 10^3/uL (4.4-10.8)
[2018-06-02 13:03] VITALS: BP 118/83
[2018-06-02 13:04] LABS: BUN/Creatinine Ratio 15.9; Calcium 8.9 mg/dL (8.5-10.1); Potassium 4.3 mmol/L (3.5-5.1)
== END | disposition home or self-care (01) ==
LOC: CHF HDHVI 09:15
PROVIDERS: ATTEND Internal Medicine Cardiovascular Disease
DX: E11.22 Type 2 diabetes mellitus with diabetic chronic kidney disease (principal); I13.0 Hypertensive heart and chronic kidney disease with heart failure and stage 1 through stage 4 chronic kidney disease, or unspecified chronic kidney disease; N18.3 Chronic kidney disease, stage 3 (moderate); I50.23 Acute on chronic systolic (congestive) heart failure; I50.32 Chronic diastolic (congestive) heart failure; D63.1 Anemia in chronic kidney disease; E78.5 Hyperlipidemia, unspecified; E03.9 Hypothyroidism, unspecified; E78.00 Pure hypercholesterolemia, unspecified; I25.2 Old myocardial infarction; I48.91 Unspecified atrial fibrillation; J44.9 Chronic obstructive pulmonary disease, unspecified; Z79.4 Long term (current) use of insulin
CPT/HCPCS: 36415; 80048; 83880; 85025; 96365; 96366; 96375; G0463; J1940; J2405

== ENCOUNTER → 2018-06-08 | Outpatient (CLI) | payer MEDICARE ==
[~2018-06-08] MED LIST changes: +BUMETANIDE (0.25MG/ML) 4 ML VIAL IV ONE; +BUMETANIDE INJECTION 10 ML ONE; -FUROSEMIDE 40 MG/4 ML VIAL IV ONE; -FUROSEMIDE 40 MG/4 ML VIAL ONE; -FUROSEMIDE INJECTION 0 ML ONE; -FUROSEMIDE INJECTION 10 ML ONE; -FUROSEMIDE INJECTION 100 MG in SODIUM CHL 0.9% 100 ML IV SCH; -ONDANSETRON HCL 4 MG/2 ML VIAL IV ONE; -ONDANSETRON HCL 4 MG/2 ML VIAL ONE; +POTASSIUM CHL 10 Meq TABLET PO ONE; -POTASSIUM CHL 20 Meq TABLET PO ONE
[2018-06-08 15:00] VITALS: BP 109/80
== END | disposition home or self-care (01) ==
LOC: CHF HDHVI 13:46
PROVIDERS: ATTEND Internal Medicine Cardiovascular Disease
DX: E87.70 Fluid overload, unspecified (principal); I25.10 Atherosclerotic heart disease of native coronary artery without angina pectoris; E11.22 Type 2 diabetes mellitus with diabetic chronic kidney disease; I13.0 Hypertensive heart and chronic kidney disease with heart failure and stage 1 through stage 4 chronic kidney disease, or unspecified chronic kidney disease; N18.3 Chronic kidney disease, stage 3 (moderate); I50.23 Acute on chronic systolic (congestive) heart failure; I50.32 Chronic diastolic (congestive) heart failure; D63.1 Anemia in chronic kidney disease; J44.9 Chronic obstructive pulmonary disease, unspecified; E78.5 Hyperlipidemia, unspecified; E03.9 Hypothyroidism, unspecified; Z79.4 Long term (current) use of insulin; I25.2 Old myocardial infarction; E78.00 Pure hypercholesterolemia, unspecified; I48.91 Unspecified atrial fibrillation; F41.9 Anxiety disorder, unspecified
CPT/HCPCS: 96374; G0463

== ENCOUNTER → 2018-07-06 | Outpatient (CLI) | payer MEDICARE ==
[~2018-07-06] VITALS: Ht 30.5 cm; Wt 118.4 kg
[~2018-07-06] MED LIST changes: -BUMETANIDE (0.25MG/ML) 4 ML VIAL IV ONE; -BUMETANIDE INJECTION 10 ML ONE; +CYANOCOBALAMIN (B-12) 1000 MCG/1 ML VIAL IM ONE; +CYANOCOBALAMIN (B-12) 1000 MCG/1 ML VIAL ONE; +FUROSEMIDE 40 MG/4 ML VIAL IV ONE; +FUROSEMIDE 40 MG/4 ML VIAL ONE; +POTASSIUM CHL 20 Meq TABLET PO ONE
[2018-07-06 16:20] VITALS: BP 137/92
== END | disposition home or self-care (01) ==
LOC: CHF HDHVI 15:33
PROVIDERS: ATTEND Internal Medicine Cardiovascular Disease
DX: I13.0 Hypertensive heart and chronic kidney disease with heart failure and stage 1 through stage 4 chronic kidney disease, or unspecified chronic kidney disease (principal); I50.9 Heart failure, unspecified; I25.10 Atherosclerotic heart disease of native coronary artery without angina pectoris; D64.9 Anemia, unspecified; N18.3 Chronic kidney disease, stage 3 (moderate); E11.22 Type 2 diabetes mellitus with diabetic chronic kidney disease; I42.9 Cardiomyopathy, unspecified; I50.23 Acute on chronic systolic (congestive) heart failure; I50.32 Chronic diastolic (congestive) heart failure; J44.9 Chronic obstructive pulmonary disease, unspecified; E03.9 Hypothyroidism, unspecified; E78.5 Hyperlipidemia, unspecified; I25.2 Old myocardial infarction; Z94.1 Heart transplant status; Z86.73 Personal history of transient ischemic attack (TIA), and cerebral infarction without residual deficits; Z79.4 Long term (current) use of insulin; Z79.01 Long term (current) use of anticoagulants; Z87.891 Personal history of nicotine dependence; Z99.81 Dependence on supplemental oxygen
CPT/HCPCS: 93701; 96372; 96374; G0463; J1940; J3420

== ENCOUNTER → 2018-07-08 | Outpatient (CLI) | payer MEDICARE ==
[~2018-07-08] MED LIST changes: -CYANOCOBALAMIN (B-12) 1000 MCG/1 ML VIAL IM ONE; -CYANOCOBALAMIN (B-12) 1000 MCG/1 ML VIAL ONE; -FUROSEMIDE 40 MG/4 ML VIAL IV ONE; -FUROSEMIDE 40 MG/4 ML VIAL ONE; -POTASSIUM CHL 10 Meq TABLET PO ONE; -POTASSIUM CHL 20 Meq TABLET PO ONE
[2018-07-08 12:17] VITALS: BP 116/78
[2018-07-08 15:48] LABS: BUN/Creatinine Ratio 11.5; Calcium 8.9 mg/dL (8.5-10.1); Magnesium 2.4 mg/dL (1.6-2.6); Potassium 4.1 mmol/L (3.5-5.1)
[2018-07-08 15:56] LABS: Basophils # (auto) 0 uL; Basophils % (auto) 0.6 % (0.0-2.0); Eosinophils # (auto) 0.1 uL; Eosinophils % (auto) 1.3 % (0.0-7.0); Hemoglobin 14.9 g/dL (13.5-17.5); Lymphocytes # (auto) 1.2 uL; Lymphocytes % (auto) 16.5 % (10.0-50.0); Mean Corpuscular Hemoglobin 27.8 pg (28.0-32.0); Mean Corpuscular Volume 84.4 fL (80.0-100.0); Monocytes # (auto) 0.8 uL; Monocytes % (auto) 10.5 % (0.0-12.0); Neutrophils # (auto) 5.1 uL; Neutrophils % (auto) 71.1 % (37.0-80.0); Nucleated Red Blood Cells % 0.2 %; Platelet Count (auto) 229 10^3/uL (140-450); Red Blood Cells 5.34 10^6/uL (4.5-5.90); Red Cell Distribution Width 17.4 % (11.8-14.3); White Blood Cell 7.2 10^3/uL (4.4-10.8)
== END | disposition home or self-care (01) ==
LOC: CHF HDHVI 11:35
PROVIDERS: ATTEND Internal Medicine Cardiovascular Disease
DX: I10 Essential (primary) hypertension (principal); E83.40 Disorders of magnesium metabolism, unspecified; D64.9 Anemia, unspecified; T82.9XXA Unspecified complication of cardiac and vascular prosthetic device, implant and graft, initial encounter; I42.9 Cardiomyopathy, unspecified
CPT/HCPCS: 36415; 80048; 83735; 85025; 85610; 94618; G0463

== ENCOUNTER → 2018-07-23 | Outpatient (CLI) | payer MEDICARE ==
[~2018-07-23] MED LIST changes: +CYANOCOBALAMIN (B-12) 1000 MCG/1 ML VIAL IM ONE; +CYANOCOBALAMIN (B-12) 1000 MCG/1 ML VIAL ONE; +FUROSEMIDE 20 MG/2 ML VIAL IV ONE; +FUROSEMIDE 20 MG/2 ML VIAL ONE; +FUROSEMIDE 40 MG/4 ML VIAL ONE; +POTASSIUM CHL 10 Meq TABLET PO ONE; +POTASSIUM CHL 20 Meq TABLET PO ONE
[2018-07-23 10:30] VITALS: BP 139/92
[2018-07-23 11:50] VITALS: BP 119/79
[2018-07-23 16:02] LABS: Potassium 3.8 mmol/L (3.5-5.1)
== END | disposition home or self-care (01) ==
LOC: CHF HDHVI 10:49
PROVIDERS: ATTEND Internal Medicine Cardiovascular Disease
DX: I13.0 Hypertensive heart and chronic kidney disease with heart failure and stage 1 through stage 4 chronic kidney disease, or unspecified chronic kidney disease (principal); E11.22 Type 2 diabetes mellitus with diabetic chronic kidney disease; I50.23 Acute on chronic systolic (congestive) heart failure; I50.32 Chronic diastolic (congestive) heart failure; N18.3 Chronic kidney disease, stage 3 (moderate); I25.119 Atherosclerotic heart disease of native coronary artery with unspecified angina pectoris; I25.2 Old myocardial infarction; I42.0 Dilated cardiomyopathy; I48.0 Paroxysmal atrial fibrillation; J44.9 Chronic obstructive pulmonary disease, unspecified; E03.9 Hypothyroidism, unspecified; E78.5 Hyperlipidemia, unspecified; E78.00 Pure hypercholesterolemia, unspecified; E87.70 Fluid overload, unspecified; E87.6 Hypokalemia; D63.1 Anemia in chronic kidney disease; F12.10 Cannabis abuse, uncomplicated; F41.9 Anxiety disorder, unspecified; R94.4 Abnormal results of kidney function studies; R53.83 Other fatigue; Z86.73 Personal history of transient ischemic attack (TIA), and cerebral infarction without residual deficits; Z85.46 Personal history of malignant neoplasm of prostate; Z94.1 Heart transplant status; Z95.810 Presence of automatic (implantable) cardiac defibrillator; Z99.81 Dependence on supplemental oxygen; Z79.4 Long term (current) use of insulin; Z79.01 Long term (current) use of anticoagulants; Z79.82 Long term (current) use of aspirin; Z87.891 Personal history of nicotine dependence
CPT/HCPCS: 36415; 82565; 84132; 84520; 93701; 96372; 96374; G0463; J1940; J3420

== ENCOUNTER → 2018-07-29 | Outpatient (CLI) | payer MEDICARE ==
[~2018-07-29] MED LIST changes: -CYANOCOBALAMIN (B-12) 1000 MCG/1 ML VIAL IM ONE; -CYANOCOBALAMIN (B-12) 1000 MCG/1 ML VIAL ONE; -POTASSIUM CHL 20 Meq TABLET PO ONE
[2018-07-29 11:00] VITALS: BP 138/96
[2018-07-29 12:05] LABS: Albumin 3.5 g/dL (3.4-5.0); Calcium 9.1 mg/dL (8.5-10.1); Magnesium 2.2 mg/dL (1.6-2.6); Potassium 4.3 mmol/L (3.5-5.1)
[2018-07-29 12:08] LABS: BUN/Creatinine Ratio 12.6; Bilirubin, Total 0.3 mg/dL (0.2-1.0); Total Protein 7.8 g/dL (6.4-8.2)
== END | disposition home or self-care (01) ==
LOC: CHF HDHVI 09:26
PROVIDERS: ATTEND Internal Medicine Cardiovascular Disease
DX: I13.0 Hypertensive heart and chronic kidney disease with heart failure and stage 1 through stage 4 chronic kidney disease, or unspecified chronic kidney disease (principal); I50.43 Acute on chronic combined systolic (congestive) and diastolic (congestive) heart failure; E11.22 Type 2 diabetes mellitus with diabetic chronic kidney disease; N18.3 Chronic kidney disease, stage 3 (moderate); D63.8 Anemia in other chronic diseases classified elsewhere; I42.0 Dilated cardiomyopathy; E83.40 Disorders of magnesium metabolism, unspecified; I25.119 Atherosclerotic heart disease of native coronary artery with unspecified angina pectoris; E78.5 Hyperlipidemia, unspecified; E87.6 Hypokalemia; J44.9 Chronic obstructive pulmonary disease, unspecified; E03.9 Hypothyroidism, unspecified; F41.9 Anxiety disorder, unspecified; I48.0 Paroxysmal atrial fibrillation; I25.2 Old myocardial infarction; E78.00 Pure hypercholesterolemia, unspecified; Z94.1 Heart transplant status; Z86.73 Personal history of transient ischemic attack (TIA), and cerebral infarction without residual deficits; Z87.891 Personal history of nicotine dependence; Z85.46 Personal history of malignant neoplasm of prostate; Z79.82 Long term (current) use of aspirin; Z79.4 Long term (current) use of insulin; Z79.01 Long term (current) use of anticoagulants
CPT/HCPCS: 36415; 80053; 83735; 96374; G0463; J1940

== ENCOUNTER → 2018-07-30 | Outpatient (CLI) | payer MEDICARE ==
[~2018-07-30] MED LIST changes: +POTASSIUM CHL 20 Meq TABLET PO ONE
[2018-07-30 11:00] VITALS: BP 129/58
[2018-07-30 12:10] VITALS: BP 129/68
== END | disposition home or self-care (01) ==
LOC: CHF HDHVI 11:48
PROVIDERS: ATTEND Internal Medicine Cardiovascular Disease
DX: I13.0 Hypertensive heart and chronic kidney disease with heart failure and stage 1 through stage 4 chronic kidney disease, or unspecified chronic kidney disease (principal); I50.43 Acute on chronic combined systolic (congestive) and diastolic (congestive) heart failure; E11.22 Type 2 diabetes mellitus with diabetic chronic kidney disease; N18.3 Chronic kidney disease, stage 3 (moderate); D63.8 Anemia in other chronic diseases classified elsewhere; I25.119 Atherosclerotic heart disease of native coronary artery with unspecified angina pectoris; J44.9 Chronic obstructive pulmonary disease, unspecified; I42.0 Dilated cardiomyopathy; E83.40 Disorders of magnesium metabolism, unspecified; E78.5 Hyperlipidemia, unspecified; E87.6 Hypokalemia; E03.9 Hypothyroidism, unspecified; I25.2 Old myocardial infarction; I48.0 Paroxysmal atrial fibrillation; E78.00 Pure hypercholesterolemia, unspecified; F12.10 Cannabis abuse, uncomplicated; R94.4 Abnormal results of kidney function studies; Z94.1 Heart transplant status; Z79.01 Long term (current) use of anticoagulants; Z79.82 Long term (current) use of aspirin; Z85.46 Personal history of malignant neoplasm of prostate; Z95.810 Presence of automatic (implantable) cardiac defibrillator; Z87.891 Personal history of nicotine dependence; Z86.73 Personal history of transient ischemic attack (TIA), and cerebral infarction without residual deficits; Z79.4 Long term (current) use of insulin
CPT/HCPCS: 96374; G0463; J1940

== ENCOUNTER → 2018-07-31 | Outpatient (CLI) | payer MEDICARE ==
[~2018-07-31] MED LIST changes: +METOLAZONE 5 MG TAB ONE; +METOLAZONE 5 MG TAB PO ONE
[2018-07-31 12:45] VITALS: BP 124/91
== END | disposition home or self-care (01) ==
LOC: CHF HDHVI 11:36
PROVIDERS: ATTEND Internal Medicine Cardiovascular Disease
DX: I13.0 Hypertensive heart and chronic kidney disease with heart failure and stage 1 through stage 4 chronic kidney disease, or unspecified chronic kidney disease (principal); I50.42 Chronic combined systolic (congestive) and diastolic (congestive) heart failure; E11.22 Type 2 diabetes mellitus with diabetic chronic kidney disease; N18.3 Chronic kidney disease, stage 3 (moderate); I48.0 Paroxysmal atrial fibrillation; I25.10 Atherosclerotic heart disease of native coronary artery without angina pectoris; J44.9 Chronic obstructive pulmonary disease, unspecified; E78.5 Hyperlipidemia, unspecified; I25.2 Old myocardial infarction; E03.9 Hypothyroidism, unspecified; I42.9 Cardiomyopathy, unspecified; I27.21 Secondary pulmonary arterial hypertension; E78.00 Pure hypercholesterolemia, unspecified; F41.9 Anxiety disorder, unspecified; F12.10 Cannabis abuse, uncomplicated; Z79.82 Long term (current) use of aspirin; Z87.891 Personal history of nicotine dependence; Z85.46 Personal history of malignant neoplasm of prostate; Z94.1 Heart transplant status; Z79.4 Long term (current) use of insulin; Z95.810 Presence of automatic (implantable) cardiac defibrillator; Z86.73 Personal history of transient ischemic attack (TIA), and cerebral infarction without residual deficits; Z79.01 Long term (current) use of anticoagulants; Z79.899 Other long term (current) drug therapy
CPT/HCPCS: 96374; G0463; J1940

== ENCOUNTER → 2018-08-24 | Outpatient (CLI) | payer MEDICARE ==
[2018-08-24 15:00] VITALS: BP 137/96
[2018-08-24 16:00] VITALS: BP 121/88
[2018-08-24 16:19] LABS: Calcium 8.6 mg/dL (8.5-10.1)
[2018-08-24 16:20] LABS: BUN/Creatinine Ratio 19.7
[2018-08-24 16:34] LABS: Potassium 2.8 mmol/L (3.5-5.1)
[2018-08-24 17:42] LABS: Basophils # (auto) 0 uL; Basophils % (auto) 0.5 % (0.0-2.0); Eosinophils # (auto) 0.1 uL; Eosinophils % (auto) 0.9 % (0.0-7.0); Hematocrit 40.5 % (41.0-53.0); Hemoglobin 13.1 g/dL (13.5-17.5); Lymphocytes # (auto) 1.1 uL; Lymphocytes % (auto) 16.5 % (10.0-50.0); Mean Corpuscular Hgb Conc. 32.3 g/dL (32.0-36.0); Mean Corpuscular Volume 83.7 fL (80.0-100.0); Monocytes # (auto) 0.7 uL; Monocytes % (auto) 10.3 % (0.0-12.0); Neutrophils # (auto) 4.6 uL; Neutrophils % (auto) 71.8 % (37.0-80.0); Nucleated Red Blood Cells % 0.3 %; Platelet Count (auto) 206 10^3/uL (140-450); Red Blood Cells 4.84 10^6/uL (4.5-5.90); Red Cell Distribution Width 18.3 % (11.8-14.3); White Blood Cell 6.4 10^3/uL (4.4-10.8)
== END | disposition home or self-care (01) ==
LOC: CHF HDHVI 14:53
PROVIDERS: ATTEND Internal Medicine Cardiovascular Disease
DX: I13.0 Hypertensive heart and chronic kidney disease with heart failure and stage 1 through stage 4 chronic kidney disease, or unspecified chronic kidney disease (principal); I50.42 Chronic combined systolic (congestive) and diastolic (congestive) heart failure; E11.22 Type 2 diabetes mellitus with diabetic chronic kidney disease; N18.3 Chronic kidney disease, stage 3 (moderate); J44.9 Chronic obstructive pulmonary disease, unspecified; I25.10 Atherosclerotic heart disease of native coronary artery without angina pectoris; I25.2 Old myocardial infarction; I42.0 Dilated cardiomyopathy; I25.5 Ischemic cardiomyopathy; I48.0 Paroxysmal atrial fibrillation; I27.29 Other secondary pulmonary hypertension; E03.9 Hypothyroidism, unspecified; E78.5 Hyperlipidemia, unspecified; E78.00 Pure hypercholesterolemia, unspecified; I07.1 Rheumatic tricuspid insufficiency; I35.1 Nonrheumatic aortic (valve) insufficiency; E44.0 Moderate protein-calorie malnutrition; E66.01 Morbid (severe) obesity due to excess calories; F41.9 Anxiety disorder, unspecified; F12.11 Cannabis abuse, in remission; Z94.1 Heart transplant status; Z79.4 Long term (current) use of insulin; Z99.81 Dependence on supplemental oxygen; Z79.01 Long term (current) use of anticoagulants; Z79.82 Long term (current) use of aspirin; Z85.46 Personal history of malignant neoplasm of prostate; Z86.73 Personal history of transient ischemic attack (TIA), and cerebral infarction without residual deficits; Z95.810 Presence of automatic (implantable) cardiac defibrillator; Z87.891 Personal history of nicotine dependence
CPT/HCPCS: 36415; 80048; 85025; 96374; G0463; J1940

== ENCOUNTER → 2018-10-09 | Outpatient (CLI) | payer MEDICARE, MEDICAID ==
[~2018-10-09] VITALS: Ht 1 cm; Wt 110.4 kg
[~2018-10-09] MED LIST changes: -ALBU1AER4 IN; -ASPI325T25 PO; +BENZ100C70 PO; +BENZ100C97 PO; -CARV25TA55 PO; +CYANOCOBALAMIN (B-12) 1000 MCG/1 ML VIAL IM ONE; +CYANOCOBALAMIN (B-12) 1000 MCG/1 ML VIAL ONE; +DIGO0.1262 PO; -FUROSEMIDE 20 MG/2 ML VIAL IV ONE; -FUROSEMIDE 20 MG/2 ML VIAL ONE; -FUROSEMIDE 40 MG/4 ML VIAL ONE; +FUROSEMIDE INJECTION 10 ML ONE; +FUROSEMIDE INJECTION 100 MG in SODIUM CHL 0.9% 100 ML IV SCH; -IBUP200C3 PO; -LEVO-28 PO; -LISI-711 PO; -LOSA25TA40 PO; +METO25TA62 PO; -METOLAZONE 5 MG TAB ONE; -METOLAZONE 5 MG TAB PO ONE; +POTA20TA53 PO; -SPIR25TA88 PO; -SPIRPOW PO; +WARF2TAB55 PO
--- NOTE | 2018-10-09 12:40 | NUR ---
PT. TO CHF CLINIC FOR C/O SOB WITH MINIMAL EXERTION. PT. ALSO APPEARS ANXIOUS, STATING HE CAN'T SEEM TO CATCH HIS BREATH. RECENT DISCHARGE FROM HOSPITAL 2 DAYS AGO, AND HAS NOT BEEN SEEN IN CLINIC SINCE 08/24. WT. DOWN 20 LBS SINCE LAST SEEN IN CLINIC. MD ORDERS RECEIVED AND CARRIED OUT. SEE NSG ASSESS.
--- NOTE | 2018-10-09 13:00 | NUR ---
IV insertion IV access obtained, via clean sterile technique by inserting 22 gauge catheter at after attempt(s). IV secured properly. No trauma to site. Patient tolerated procedure well.LABS SENT PER MD ZEE.
--- NOTE | 2018-10-09 13:05 | NUR ---
Clinic Provider Clinic Provider into see pt with new orders received and carried out. Lasix gtt started at {30}mg/hr per MD order.
[2018-10-09 13:45] LABS: Basophils # (auto) 0.1 uL; Eosinophils # (auto) 0.1 uL; Hematocrit 44.3 % (41.0-53.0); Lymphocytes # (auto) 1.1 uL; Monocytes # (auto) 0.6 uL; Nucleated Red Blood Cells % 0.1 %; Red Cell Distribution Width 18.6 % (11.8-14.3)
--- NOTE | 2018-10-09 13:45 | NUR ---
PT. STATUS: BRP WITHOUT ASSIST. 107/77, 66, 20
[2018-10-09 13:46] LABS: Basophils % (auto) 1.2 % (0.0-2.0); Eosinophils % (auto) 1.4 % (0.0-7.0); Hemoglobin 14.4 g/dL (13.5-17.5); Lymphocytes % (auto) 22.4 % (10.0-50.0); Mean Corpuscular Hemoglobin 26.5 pg (28.0-32.0); Mean Corpuscular Hgb Conc. 32.5 g/dL (32.0-36.0); Mean Corpuscular Volume 81.5 fL (80.0-100.0); Monocytes % (auto) 13.1 % (0.0-12.0); Neutrophils % (auto) 61.9 % (37.0-80.0); Platelet Count (auto) 280 10^3/uL (140-450); Red Blood Cells 5.44 10^6/uL (4.5-5.90); White Blood Cell 4.9 10^3/uL (4.4-10.8)
[2018-10-09 14:33] LABS: Blood Urea Nitrogen 22 mg/dL (7-18); GFR Non-African American 55 mL/min; Potassium 4.1 mmol/L (3.5-5.1)
[2018-10-09 14:34] LABS: GFR African American > 60 mL/min
--- NOTE | 2018-10-09 14:45 | NUR ---
COMFORT: BRP'S X 3 IN PAST HOUR WITHOT DIFFICULTY. PT REMAINS ON O2 AT 2L/NC WITH SATS AT 98%.
--- NOTE | 2018-10-09 15:15 | NUR ---
MEDS: PT. MEDICATED WITH KDUR 40 MEQ PO PER MD ORDER.
--- NOTE | 2018-10-09 15:20 | NUR ---
MEDS: PT. MEDICATED WITH VIT. B12 1000MCG IM LFT DELT. PER MD ORDER.
[2018-10-09 15:55] VITALS: BP 122/80
--- NOTE | 2018-10-09 15:55 | NUR ---
IV removal IV DC'd with sterile technique, catheter fully intact. Pressure dressing applied to site. Patient tolerated procedure well. Discharged with aftercare instructions per MD. NOTE: LABS REVIEWED WITH PT, WHO HAS APPT. WITH DR. JACOBSEN ON FRIDAY FOR POST HOSP. FOLLOW UP AND WILL RTC AFTER APPT. PT. INSTRUCTED TO ALTERNATE WAEFARIN 2MG ON EVEN DAYS AND 3MG ON ODD DAYS UNTIL NEXT APPT. PT. STAES HE FEELS MUCH BETTER AFTER TX.HOME HEALTH TO FOLLOW UP WITH PT. AFTER UPDATE IN ADDRESS OF PT.
== END | disposition home or self-care (01) ==
LOC: CHF HDHVI 12:52
PROVIDERS: ATTEND Internal Medicine Cardiovascular Disease
DX: I13.0 Hypertensive heart and chronic kidney disease with heart failure and stage 1 through stage 4 chronic kidney disease, or unspecified chronic kidney disease (principal); I50.42 Chronic combined systolic (congestive) and diastolic (congestive) heart failure; R94.4 Abnormal results of kidney function studies; E87.6 Hypokalemia; D64.9 Anemia, unspecified; I25.10 Atherosclerotic heart disease of native coronary artery without angina pectoris; J44.9 Chronic obstructive pulmonary disease, unspecified; E78.5 Hyperlipidemia, unspecified; E03.9 Hypothyroidism, unspecified; E66.01 Morbid (severe) obesity due to excess calories; I25.2 Old myocardial infarction; E11.22 Type 2 diabetes mellitus with diabetic chronic kidney disease; F12.11 Cannabis abuse, in remission; E78.00 Pure hypercholesterolemia, unspecified; N18.3 Chronic kidney disease, stage 3 (moderate); Z79.01 Long term (current) use of anticoagulants; Z79.82 Long term (current) use of aspirin; Z79.4 Long term (current) use of insulin; Z87.891 Personal history of nicotine dependence; Z86.73 Personal history of transient ischemic attack (TIA), and cerebral infarction without residual deficits; Z85.46 Personal history of malignant neoplasm of prostate; Z95.810 Presence of automatic (implantable) cardiac defibrillator
CPT/HCPCS: 36415; 82565; 83880; 84132; 84520; 85025; 85610; 96365; 96366; 96372; G0463; J1940; J3420

== ENCOUNTER → 2018-10-14 | Outpatient (CLI) | payer MEDICARE, MEDICAID ==
[~2018-10-14] MED LIST changes: -BENZ100C70 PO; -BENZ100C97 PO; -CYANOCOBALAMIN (B-12) 1000 MCG/1 ML VIAL IM ONE; -CYANOCOBALAMIN (B-12) 1000 MCG/1 ML VIAL ONE; -DIGO0.1262 PO; -FUROSEMIDE INJECTION 10 ML ONE; -FUROSEMIDE INJECTION 100 MG in SODIUM CHL 0.9% 100 ML IV SCH; -METO25TA62 PO; -POTA20TA53 PO; -POTASSIUM CHL 10 Meq TABLET PO ONE; -POTASSIUM CHL 20 Meq TABLET PO ONE; -WARF2TAB55 PO
--- NOTE | 2018-10-14 10:56 | NUR ---
CHF PT TO CHF CLINIC FOR FOLLOW UP AND MD JACOBSEN ORDERED CARDIODYNAMICS, 6MW,LABS WITH PTINR. LAST DOSE COUMADIN 4 MG LAST NIGHT. PT WAS ORDERED TO TAKE COUMADIN 2MG ON EVEN DAYS AND 3 MG ON ODD DAYS. HOWEVER HE STATES HE TOOK 2MG ON EVEN DAYS AND 4 MG ON ODD DAYS.
[2018-10-14 14:00] VITALS: BP 108/67
--- NOTE | 2018-10-14 14:00 | NUR ---
CHF Discharge Instructions See e-MAR for any mediations given with this visit. INR 1.6MG/DL MD JACOBSEN TO ADVISE OF ANY DOSE CHANGE Patient education given on disease process. Patient verbalized understanding. Previous labs reviewed. Patient discharged in stable condition with after care instructions and follow up appointment.
[2018-10-14 16:12] LABS: Basophils # (auto) 0 uL; Mean Corpuscular Hemoglobin 26.7 pg (28.0-32.0); Monocytes # (auto) 0.7 uL
[2018-10-14 16:14] LABS: Basophils % (auto) 0.5 % (0.0-2.0); Eosinophils # (auto) 0 uL; Eosinophils % (auto) 0.6 % (0.0-7.0); Hemoglobin 13.3 g/dL (13.5-17.5); Lymphocytes # (auto) 0.9 uL; Lymphocytes % (auto) 16.5 % (10.0-50.0); Mean Corpuscular Hgb Conc. 32.4 g/dL (32.0-36.0); Mean Corpuscular Volume 82.5 fL (80.0-100.0); Monocytes % (auto) 12.8 % (0.0-12.0); Neutrophils % (auto) 69.6 % (37.0-80.0); Nucleated Red Blood Cells % 0.3 %; Platelet Count (auto) 274 10^3/uL (140-450); Red Blood Cells 4.96 10^6/uL (4.5-5.90); Red Cell Distribution Width 19.1 % (11.8-14.3); White Blood Cell 5.7 10^3/uL (4.4-10.8)
[2018-10-14 16:35] LABS: Anion Gap 4 (5-15); BUN/Creatinine Ratio 14.5; Blood Urea Nitrogen 20 mg/dL (7-18); Calcium 8.9 mg/dL (8.5-10.1); Carbon Dioxide 24 mmol/L (21-32); Chloride 110 mmol/L (98-107); GFR Non-African American 57 mL/min; Glucose 90 mg/dL (74-106); Magnesium 2.7 mg/dL (1.6-2.6); Potassium 4.1 mmol/L (3.5-5.1); Sodium 138 mmol/L (136-145)
[2018-10-14 16:44] LABS: GFR African American > 60 mL/min
== END | disposition home or self-care (01) ==
LOC: CHF HDHVI 10:55
PROVIDERS: ATTEND Internal Medicine Cardiovascular Disease
DX: I11.0 Hypertensive heart disease with heart failure (principal); I50.9 Heart failure, unspecified; I25.10 Atherosclerotic heart disease of native coronary artery without angina pectoris; I42.9 Cardiomyopathy, unspecified; E83.40 Disorders of magnesium metabolism, unspecified; D64.9 Anemia, unspecified; R06.02 Shortness of breath
CPT/HCPCS: 36415; 80048; 83735; 83880; 85025; 85610; 93701; 94618; G0463

== ENCOUNTER → 2018-10-19 | Outpatient (CLI) | payer MEDICARE, MEDICAID ==
[~2018-10-19] MED LIST changes: +FUROSEMIDE 20 MG/2 ML VIAL IV ONE; +FUROSEMIDE 20 MG/2 ML VIAL ONE; +FUROSEMIDE 40 MG/4 ML VIAL ONE; +POTASSIUM CHL 10 Meq TABLET PO ONE; +POTASSIUM CHL 20 Meq TABLET PO ONE
--- NOTE | 2018-10-19 10:50 | NUR ---
CHF PT TO CHF CLINIC FOR CHF REEVAL. PT HAS DIFFICULTY SPEAKING CLEARLY SINCE CVA A FEW WEEKS AGO. DR. JACOBSEN ORDERED LABS BUN/CREAT/ K. PTINR. IVP LASIX 60MG FOR INCREASE FLUID OVERLOAD. POTASSIUM CHLORIDE 30 MEQ PO.
[2018-10-19 13:10] VITALS: BP 125/65
--- NOTE | 2018-10-19 13:10 | NUR ---
CHF Discharge Instructions See e-MAR for any mediations given with this visit. ALTERNATE COUMADIN 4MG ON EVEN DAYS AND 3 MG ON ODD DAYS. FOLLOW UP 10/26/18 FOR PREOP R/LHC . PT WILL STOP COUMADIN THAT DAY FOR 3 DAYS TO READY FOR PROCEDURE 10/29/18 [facility]. Patient education given on disease process. Patient verbalized understanding. Previous labs reviewed. Patient discharged in stable condition with after care instructions and follow up appointment.
[2018-10-19 16:26] LABS: Potassium 4.1 mmol/L (3.5-5.1)
== END | disposition home or self-care (01) ==
LOC: CHF HDHVI 11:01
PROVIDERS: ATTEND Internal Medicine Cardiovascular Disease
DX: I13.0 Hypertensive heart and chronic kidney disease with heart failure and stage 1 through stage 4 chronic kidney disease, or unspecified chronic kidney disease (principal); N18.3 Chronic kidney disease, stage 3 (moderate); I50.42 Chronic combined systolic (congestive) and diastolic (congestive) heart failure; D63.1 Anemia in chronic kidney disease; E87.6 Hypokalemia; R94.4 Abnormal results of kidney function studies; I25.10 Atherosclerotic heart disease of native coronary artery without angina pectoris; I63.9 Cerebral infarction, unspecified; N28.9 Disorder of kidney and ureter, unspecified; F41.9 Anxiety disorder, unspecified; E44.1 Mild protein-calorie malnutrition; I25.2 Old myocardial infarction; E78.5 Hyperlipidemia, unspecified; E66.01 Morbid (severe) obesity due to excess calories; I48.0 Paroxysmal atrial fibrillation; E78.00 Pure hypercholesterolemia, unspecified; F12.10 Cannabis abuse, uncomplicated; Z79.82 Long term (current) use of aspirin; Z79.4 Long term (current) use of insulin; Z94.1 Heart transplant status; Z87.891 Personal history of nicotine dependence; Z79.899 Other long term (current) drug therapy; Z95.810 Presence of automatic (implantable) cardiac defibrillator; Z85.46 Personal history of malignant neoplasm of prostate; Z79.01 Long term (current) use of anticoagulants
CPT/HCPCS: 36415; 82565; 84132; 84520; 85610; 96374; G0463; J1940

== ENCOUNTER → 2018-10-26 | Outpatient (CLI) | payer MEDICARE, MEDICAID ==
[~2018-10-26] MED LIST changes: +BENZ100C70 PO; +BENZ100C97 PO; +DIGO0.1262 PO; -FUROSEMIDE 20 MG/2 ML VIAL IV ONE; -FUROSEMIDE 20 MG/2 ML VIAL ONE; -FUROSEMIDE 40 MG/4 ML VIAL ONE; +METO25TA62 PO; +POTA20TA53 PO; -POTASSIUM CHL 10 Meq TABLET PO ONE; -POTASSIUM CHL 20 Meq TABLET PO ONE; +WARF2TAB55 PO
[2018-10-26 10:39] VITALS: BP 114/65
[2018-10-26 12:05] VITALS: BP 111/66
--- NOTE | 2018-10-26 12:05 | NUR ---
PRE-OP FOR LEFT AND RIGHT HEART CATH FOR 10/29/18 Pre-Op Discharge Summary: See e-MAR for any medications given for this visit. Pre-op orders received and carried out per MD of EKG, LABS and chest xrays. Patient given a copy of EKG with instructions to go to [facility] out patient for further follow up care.
[2018-10-26 15:58] LABS: Basophils # (auto) 0 uL; Basophils % (auto) 0.4 % (0.0-2.0); Eosinophils # (auto) 0.1 uL; Eosinophils % (auto) 1.4 % (0.0-7.0); Hematocrit 44.7 % (41.0-53.0); Hemoglobin 14.4 g/dL (13.5-17.5); Lymphocytes # (auto) 1.1 uL; Lymphocytes % (auto) 18.1 % (10.0-50.0); Mean Corpuscular Hemoglobin 27.3 pg (28.0-32.0); Mean Corpuscular Hgb Conc. 32.2 g/dL (32.0-36.0); Mean Corpuscular Volume 84.9 fL (80.0-100.0); Monocytes # (auto) 0.6 uL; Monocytes % (auto) 9.5 % (0.0-12.0); Neutrophils # (auto) 4.4 uL; Neutrophils % (auto) 70.6 % (37.0-80.0); Nucleated Red Blood Cells % 0.2 %; Platelet Count (auto) 163 10^3/uL (140-450); Red Blood Cells 5.26 10^6/uL (4.5-5.90); Red Cell Distribution Width 21.3 % (11.8-14.3); White Blood Cell 6.3 10^3/uL (4.4-10.8)
[2018-10-26 16:13] LABS: BUN/Creatinine Ratio 17.3; Calcium 8.4 mg/dL (8.5-10.1); Potassium 4.1 mmol/L (3.5-5.1)
[2018-10-26 16:29] LABS: INR 1.25 (0.9-1.15); Partial Thromboplastin Time 35.7 sec (23.78-33.04); Prothrombin Time 13.2 sec (9.27-12.13)
== END | disposition home or self-care (01) ==
LOC: Rad HDHVI 10:40
PROVIDERS: ATTEND Internal Medicine Cardiovascular Disease
DX: Z01.812 Encounter for preprocedural laboratory examination (principal); I11.0 Hypertensive heart disease with heart failure; I50.9 Heart failure, unspecified; I42.0 Dilated cardiomyopathy; D64.9 Anemia, unspecified; R79.1 Abnormal coagulation profile; R94.31 Abnormal electrocardiogram [ECG] [EKG]
CPT/HCPCS: 36415; 71046; 80048; 85025; 85610; 85730; 93005; G0463

== ENCOUNTER 2018-10-29 09:36 | Day surgery (SDC) | payer MEDICARE, MEDICAID ==
[~2018-10-29] VITALS: Ht 172.7 cm; Wt 113.4 kg
[~2018-10-29 09:36] MED LIST changes: -ALBUAER3 IN; -ALPR0.5T PO; -CAR3125T OR; -LISI-646 PO; -NITR0.4S29 SL; -POTA8TAB2 PO; -SIMV-8 PO; -WARF1TAB36 PO
[2018-10-29] MEDS ORDERED: ANGIOMAX 250 MG VIAL IV ONE (12:57)
[2018-10-29] MEDS ORDERED: IODIXANOL 320MG/ML 100ML BTL IV ONE (12:58)
[2018-10-29] MEDS ORDERED: SODIUM CHL 0.9% 0 ML ONE (12:58)
[2018-10-29] MEDS ORDERED: MIDAZOLAM HCL 1MG/1ML-2 ML VIAL ONE (12:58)
[2018-10-29] MEDS ORDERED: LIDOCAINE 2%HCL (LOCAL ANESTH.) INJ 20ML MDV ONE (12:58)
[2018-10-29] MEDS ORDERED: fentaNYL CITRATE 100 MCG/2 ML VL ONE (12:58)
== END 2018-10-29 16:21 | disposition home or self-care (01) ==
LOC: CATH 09:36
PROVIDERS: ATTEND Internal Medicine Cardiovascular Disease
DX: I42.0 Dilated cardiomyopathy (principal); Q24.9 Congenital malformation of heart, unspecified; J44.9 Chronic obstructive pulmonary disease, unspecified; G47.30 Sleep apnea, unspecified; F41.9 Anxiety disorder, unspecified; I11.0 Hypertensive heart disease with heart failure; I25.2 Old myocardial infarction; Z88.6 Allergy status to analgesic agent; Z88.5 Allergy status to narcotic agent; Z88.8 Allergy status to other drugs, medicaments and biological substances; Z91.012 Allergy to eggs; Z82.49 Family history of ischemic heart disease and other diseases of the circulatory system; Z82.3 Family history of stroke; Z83.3 Family history of diabetes mellitus; Z87.891 Personal history of nicotine dependence; Z79.899 Other long term (current) drug therapy
CPT/HCPCS: 93460; A6257; C1760; C1894; J1644; J2250; J3010; J7030; Q9967; 99152

== ENCOUNTER → 2018-11-04 | Outpatient (CLI) | payer MEDICARE, MEDICAID ==
[~2018-11-04] VITALS: Ht 30.5 cm; Wt 117.0 kg
[~2018-11-04] MED LIST changes: +DOBUTamine 1000MCG/ML 250 ML IV ONE; +FUROSEMIDE 100 MG/10ML VIAL IV ONE; +FUROSEMIDE 20 MG/2 ML VIAL ONE; +FUROSEMIDE INJECTION 10 ML ONE; +KETOROLAC TROMETH 60MG/2ML VIAL IM ONE; +POTASSIUM CHL 20 Meq TABLET PO ONE
--- NOTE | 2018-11-04 10:10 | NUR ---
IV insertion IV access obtained, via clean sterile technique by inserting 22 gauge catheter at LAC after 1 attempt(s). IV secured properly. No trauma to site. Patient tolerated procedure well.
[2018-11-04 10:57] VITALS: BP 145/81
[2018-11-04 11:29] LABS: INR 1.23 (0.9-1.15); Partial Thromboplastin Time 33.6 sec (23.78-33.04)
[2018-11-04 11:30] VITALS: BP 139/73
[2018-11-04 11:38] LABS: BUN/Creatinine Ratio 13.7; Calcium 8.2 mg/dL (8.5-10.1); Potassium 3.9 mmol/L (3.5-5.1)
[2018-11-04 11:45] VITALS: BP 124/72
[2018-11-04 12:00] VITALS: BP 102/69
[2018-11-04 12:04] LABS: Basophils # (auto) 0 uL; Basophils % (auto) 0.5 % (0.0-2.0); Eosinophils # (auto) 0.1 uL; Eosinophils % (auto) 1.1 % (0.0-7.0); Hematocrit 41.8 % (41.0-53.0); Hemoglobin 13.7 g/dL (13.5-17.5); Lymphocytes # (auto) 0.9 uL; Lymphocytes % (auto) 16.8 % (10.0-50.0); Mean Corpuscular Hemoglobin 27.4 pg (28.0-32.0); Mean Corpuscular Hgb Conc. 32.7 g/dL (32.0-36.0); Mean Corpuscular Volume 83.7 fL (80.0-100.0); Monocytes # (auto) 0.4 uL; Monocytes % (auto) 7.1 % (0.0-12.0); Neutrophils # (auto) 4.2 uL; Neutrophils % (auto) 74.5 % (37.0-80.0); Nucleated Red Blood Cells % 0.1 %; Platelet Count (auto) 190 10^3/uL (140-450); White Blood Cell 5.6 10^3/uL (4.4-10.8)
[2018-11-04 12:30] VITALS: BP 100/61
[2018-11-04 12:35] LABS: Red Cell Distribution Width 20.7 % (11.8-14.3)
[2018-11-04 13:00] VITALS: BP 103/61
--- NOTE | 2018-11-04 14:30 | NUR ---
CHF CLINIC Discharge Instructions See e-MAR for any mediations given with this visit. Patient education given on disease process. Patient verbalized understanding. Previous labs reviewed. Patient discharged in stable condition with after care instructions and follow up appointment. NOTE LASIX IVP ADMIN BY ANTONIETTA HARDY DOBUTAMINE INFUSION ADMIN BY ANTONIETTA HARDY TORADOL IM R GLUTE ADMIN BY CAMI GÓMEZ POTASSIUM PO ADMIN BY CALRY AHRDY 2 SAMPLES OF ULORIC 40MG TABS GIVEN TO PATIENT, PATIENT EDUCATION GIVEN BY YULY HARDY
== END | disposition home or self-care (01) ==
LOC: CHF HDHVI 10:13
PROVIDERS: ATTEND Internal Medicine Cardiovascular Disease
DX: I13.0 Hypertensive heart and chronic kidney disease with heart failure and stage 1 through stage 4 chronic kidney disease, or unspecified chronic kidney disease (principal); E11.22 Type 2 diabetes mellitus with diabetic chronic kidney disease; I50.42 Chronic combined systolic (congestive) and diastolic (congestive) heart failure; N18.3 Chronic kidney disease, stage 3 (moderate); D64.9 Anemia, unspecified; R79.1 Abnormal coagulation profile; I42.0 Dilated cardiomyopathy; I25.10 Atherosclerotic heart disease of native coronary artery without angina pectoris; I48.0 Paroxysmal atrial fibrillation; I25.2 Old myocardial infarction; I27.21 Secondary pulmonary arterial hypertension; F41.9 Anxiety disorder, unspecified; J44.9 Chronic obstructive pulmonary disease, unspecified; E78.5 Hyperlipidemia, unspecified; E03.9 Hypothyroidism, unspecified; G47.30 Sleep apnea, unspecified; E66.01 Morbid (severe) obesity due to excess calories; Z68.41 Body mass index [BMI] 40.0-44.9, adult; Z87.891 Personal history of nicotine dependence; Z79.899 Other long term (current) drug therapy; Z79.01 Long term (current) use of anticoagulants; Z79.82 Long term (current) use of aspirin; Z79.4 Long term (current) use of insulin; Z86.73 Personal history of transient ischemic attack (TIA), and cerebral infarction without residual deficits; Z99.81 Dependence on supplemental oxygen
CPT/HCPCS: 36415; 80048; 83880; 84550; 85025; 85610; 85730; 96365; 96366; 96372; 96375; G0463; J1250; J1885; J1940

== ENCOUNTER → 2018-11-10 | Outpatient (CLI) | payer MEDICARE, MEDICAID ==
[~2018-11-10] MED LIST changes: +CYANOCOBALAMIN (B-12) 1000 MCG/1 ML VIAL IM ONE; +CYANOCOBALAMIN (B-12) 1000 MCG/1 ML VIAL ONE; -DOBUTamine 1000MCG/ML 250 ML IV ONE; -FUROSEMIDE 100 MG/10ML VIAL IV ONE; -FUROSEMIDE 20 MG/2 ML VIAL ONE; +FUROSEMIDE 40 MG/4 ML VIAL IV ONE; +FUROSEMIDE 40 MG/4 ML VIAL ONE; -FUROSEMIDE INJECTION 10 ML ONE; -KETOROLAC TROMETH 60MG/2ML VIAL IM ONE
[2018-11-10 09:30] VITALS: BP 128/74
[2018-11-10 10:20] VITALS: BP 128/76
--- NOTE | 2018-11-10 10:20 | NUR ---
CHF FOLLOWUP FOR INCREASED WEIGHT AND SOB. Clinic Provider Clinic Provider into see pt with new orders received and carried out. LABS DRAWN AND SENT. INR CHECKED WITH RESULT OF 1.3 WITH INSTRUCTIONS FOR 6 MG DOSE OF COUMADIN TONIGHT AND THEN RESUME 4 MG DAILY. MEDICATION MANAGEMENT AND WEIGHT MANAGEMENT REVIEWED BY ALANA HARDY. Discharge Instructions See e-MAR for any mediations given with this visit. Patient education given on disease process. Patient verbalized understanding. Previous labs reviewed. Patient discharged in stable condition with after care instructionS. MEDICATION ADMINISTRATION VIT B12 1000 MCG IM TO LEFT DELTOID AT 1017 LASIX 80 MG IVP AT 1 AT 1012 POTASSIUM 40 MEQ PO AT 1015
[2018-11-10 13:09] LABS: BUN/Creatinine Ratio 13.5; Calcium 8.3 mg/dL (8.5-10.1); Magnesium 2.3 mg/dL (1.6-2.6); Potassium 3.8 mmol/L (3.5-5.1)
== END | disposition home or self-care (01) ==
LOC: CHF HDHVI 09:23
PROVIDERS: ATTEND Internal Medicine Cardiovascular Disease
DX: I13.0 Hypertensive heart and chronic kidney disease with heart failure and stage 1 through stage 4 chronic kidney disease, or unspecified chronic kidney disease (principal); E11.22 Type 2 diabetes mellitus with diabetic chronic kidney disease; N18.3 Chronic kidney disease, stage 3 (moderate); I50.42 Chronic combined systolic (congestive) and diastolic (congestive) heart failure; E83.40 Disorders of magnesium metabolism, unspecified; I25.10 Atherosclerotic heart disease of native coronary artery without angina pectoris; I25.2 Old myocardial infarction; I48.0 Paroxysmal atrial fibrillation; J44.9 Chronic obstructive pulmonary disease, unspecified; I42.9 Cardiomyopathy, unspecified; E78.5 Hyperlipidemia, unspecified; E03.9 Hypothyroidism, unspecified; F41.9 Anxiety disorder, unspecified; R53.83 Other fatigue; E66.01 Morbid (severe) obesity due to excess calories; F12.11 Cannabis abuse, in remission; Z68.41 Body mass index [BMI] 40.0-44.9, adult; J45.909 Unspecified asthma, uncomplicated; Z99.81 Dependence on supplemental oxygen; Z79.4 Long term (current) use of insulin; Z79.82 Long term (current) use of aspirin; Z79.899 Other long term (current) drug therapy; Z86.73 Personal history of transient ischemic attack (TIA), and cerebral infarction without residual deficits; Z87.891 Personal history of nicotine dependence; Z79.01 Long term (current) use of anticoagulants
CPT/HCPCS: 36415; 80048; 83735; 85610; 96372; 96374; G0463; J1940; J3420

== ENCOUNTER → 2018-11-13 | Outpatient (CLI) | payer MEDICARE, MEDICAID ==
[~2018-11-13] VITALS: Ht 30.5 cm; Wt 117.5 kg
[~2018-11-13] MED LIST changes: +BUMETANIDE (0.25 MG/ML) INJ 10ML IV ONE; +BUMETANIDE (0.25MG/ML) 4 ML VIAL ONE; -CYANOCOBALAMIN (B-12) 1000 MCG/1 ML VIAL IM ONE; -CYANOCOBALAMIN (B-12) 1000 MCG/1 ML VIAL ONE; -FUROSEMIDE 40 MG/4 ML VIAL IV ONE; -FUROSEMIDE 40 MG/4 ML VIAL ONE
[2018-11-13 16:16] LABS: Potassium 3.6 mmol/L (3.5-5.1)
== END | disposition home or self-care (01) ==
LOC: CHF HDHVI 10:06
PROVIDERS: ATTEND Internal Medicine Cardiovascular Disease
DX: I13.0 Hypertensive heart and chronic kidney disease with heart failure and stage 1 through stage 4 chronic kidney disease, or unspecified chronic kidney disease (principal); E11.22 Type 2 diabetes mellitus with diabetic chronic kidney disease; I50.42 Chronic combined systolic (congestive) and diastolic (congestive) heart failure; N18.3 Chronic kidney disease, stage 3 (moderate); R94.4 Abnormal results of kidney function studies; E87.5 Hyperkalemia; I25.10 Atherosclerotic heart disease of native coronary artery without angina pectoris; I42.9 Cardiomyopathy, unspecified; I25.2 Old myocardial infarction; I48.0 Paroxysmal atrial fibrillation; F41.9 Anxiety disorder, unspecified; F12.11 Cannabis abuse, in remission; J44.9 Chronic obstructive pulmonary disease, unspecified; E78.5 Hyperlipidemia, unspecified; E03.9 Hypothyroidism, unspecified; E66.01 Morbid (severe) obesity due to excess calories; E78.00 Pure hypercholesterolemia, unspecified; Z79.899 Other long term (current) drug therapy; Z87.891 Personal history of nicotine dependence; Z86.73 Personal history of transient ischemic attack (TIA), and cerebral infarction without residual deficits; Z95.810 Presence of automatic (implantable) cardiac defibrillator; Z85.46 Personal history of malignant neoplasm of prostate; Z99.81 Dependence on supplemental oxygen; Z68.41 Body mass index [BMI] 40.0-44.9, adult; Z79.01 Long term (current) use of anticoagulants; Z79.82 Long term (current) use of aspirin; Z79.4 Long term (current) use of insulin
CPT/HCPCS: 36415; 82565; 84132; 84520; 85610; 96374; G0463; J3490

== ENCOUNTER → 2018-11-19 | Outpatient (CLI) | payer MEDICARE, MEDICAID ==
[~2018-11-19] MED LIST changes: -BUMETANIDE (0.25 MG/ML) INJ 10ML IV ONE; -BUMETANIDE (0.25MG/ML) 4 ML VIAL ONE; +POTASSIUM CHL 10 Meq TABLET PO ONE
[2018-11-19 09:19] VITALS: BP 123/71
--- NOTE | 2018-11-19 09:19 | NUR ---
CHF PT TO CHF CLINIC FOR FOLLOW UP,CARDIODYNAMICS AND INR
[2018-11-19 10:18] VITALS: BP 119/75
--- NOTE | 2018-11-19 10:20 | NUR ---
Discharge Instructions See e-MAR for any mediations given with this visit. Patient education given on disease process. Patient verbalized understanding. Previous labs reviewed. Patient discharged in stable condition with after care instructions and follow up appointment.
== END | disposition home or self-care (01) ==
LOC: CHF HDHVI 09:39
PROVIDERS: ATTEND Internal Medicine Cardiovascular Disease
DX: I11.0 Hypertensive heart disease with heart failure (principal); I50.9 Heart failure, unspecified
CPT/HCPCS: 85610; 93701; G0463

== ENCOUNTER → 2018-11-27 | Outpatient (CLI) | payer MEDICARE, MEDICAID ==
[~2018-11-27] MED LIST changes: -POTASSIUM CHL 10 Meq TABLET PO ONE; -POTASSIUM CHL 20 Meq TABLET PO ONE
--- NOTE | 2018-11-27 10:00 | NUR ---
PATIENT TO BACK OFFICE FOR APPT.
--- NOTE | 2018-11-27 10:50 | NUR ---
PATIENT BACK FROM MD SIDE.
[2018-11-27 11:35] VITALS: BP 136/82
--- NOTE | 2018-11-27 11:35 | NUR ---
CHF CLINIC Discharge Instructions See e-MAR for any mediations given with this visit. Patient education given on disease process. Patient verbalized understanding. Previous labs reviewed. Patient discharged in stable condition with after care instructions and follow up appointment. NOTE INR 5.1 PATIENT INSTRUCTED TO HOLD COUMADIN AND RETURN ON FRIDAY FOR A RECHECK, PATIENT VERBALIZED UNDERSTANDING. CARDIODYNAMICS PERFORMED BY CARMEN GÓMEZ AND REVIEWED WITH PATIENT BY CARLY HARDY.
== END | disposition home or self-care (01) ==
LOC: CHF HDHVI 09:26
PROVIDERS: ATTEND Internal Medicine Cardiovascular Disease
DX: I48.91 Unspecified atrial fibrillation (principal); I42.9 Cardiomyopathy, unspecified; I11.0 Hypertensive heart disease with heart failure; I50.9 Heart failure, unspecified
CPT/HCPCS: 93701; G0463

== ENCOUNTER → 2018-11-30 | Outpatient (CLI) | payer MEDICARE, MEDICAID | END | disposition home or self-care (01) | LOC: LAB 10:53 | PROVIDERS: ATTEND Internal Medicine Cardiovascular Disease | DX: R79.1 Abnormal coagulation profile (principal) | CPT/HCPCS: 85610 ==

== ENCOUNTER 2018-12-28 21:40 | Inpatient (IN) | payer MEDICARE, MEDICAID | END 2019-01-02 15:33 | disposition home or self-care (01) | LOC: ER 21:40 → TELE 12-29 01:24 → TELE-EAST 12-31 23:04 | DX: I13.0 Hypertensive heart and chronic kidney disease with heart failure and stage 1 through stage 4 chronic kidney disease, or unspecified chronic kidney disease (principal); I50.43 Acute on chronic combined systolic (congestive) and diastolic (congestive) heart failure; D68.69 Other thrombophilia; N18.3 Chronic kidney disease, stage 3 (moderate); Z95.810 Presence of automatic (implantable) cardiac defibrillator; E87.6 Hypokalemia; I25.10 Atherosclerotic heart disease of native coronary artery without angina pectoris; T45.515A Adverse effect of anticoagulants, initial encounter; E66.01 Morbid (severe) obesity due to excess calories; I25.2 Old myocardial infarction; I50.82 Biventricular heart failure ==

== ENCOUNTER → 2019-01-11 | Outpatient (CLI) | payer MEDICARE, MEDICAID ==
[~2019-01-11] VITALS: Ht 1 cm; Wt 0.5 kg
[~2019-01-11] MED LIST changes: +CYANOCOBALAMIN (B-12) 1000 MCG/1 ML VIAL IM ONE; +CYANOCOBALAMIN (B-12) 1000 MCG/1 ML VIAL ONE; +DOBUTamine 1000MCG/ML 250 ML IV ONE; +FUROSEMIDE 100 MG/10ML VIAL IV ONE; +FUROSEMIDE 20 MG/2 ML VIAL ONE; +FUROSEMIDE INJECTION 10 ML ONE; +POTASSIUM CHL 10 Meq TABLET PO ONE; +POTASSIUM CHL 20 Meq TABLET PO ONE
--- NOTE | 2019-01-11 11:55 | NUR ---
CHF PT ARRIVED AT THE CHF CLINIC SOB. VITAL SIGNS OBTAINED 0 DISTRESS. UPDATED
--- NOTE | 2019-01-11 12:15 | NUR ---
Clinic Provider Clinic Provider into see pt with new orders received and carried out. Dobutamine gtt started at {5}mcg/kg/hr per MD order. Lasix 120MG IVP ORDERED
--- NOTE | 2019-01-11 12:35 | NUR ---
Discharge Instructions See e-MAR for any mediations given with this visit. Patient education given on disease process. Patient verbalized understanding. Previous labs reviewed. Patient discharged in stable condition with after care instructions and follow up appointment. MEDICATIONS 1245 START TIME DOBUTAMINE DRIP 5MXCG/KG/MIN X 3 HR 1623 STOP TIME DOBUTAMINE 1240 LASIX 120 MG IV X 1 1239 POTASSIUM 40MEQ PO X 1 1629 VITAMIN B12 1000MCG IM X 1 Addendum: 01/11/19 at 1722 by ABHILASH YANG RN RN PA PATIENT DISCHARGE TIME IS 1630
--- NOTE | 2019-01-11 12:40 | NUR ---
IV insertion IV access obtained, via clean sterile technique by inserting 22 gauge catheter at after attempt(s). IV secured properly. No trauma to site. Patient tolerated procedure well.
[2019-01-11 16:09] LABS: Eosinophils # (auto) 0.1 uL; Eosinophils % (auto) 1.2 % (0.0-7.0); Monocytes # (auto) 0.6 uL; Red Blood Cells 5.25 10^6/uL (4.5-5.90)
[2019-01-11 16:11] LABS: Basophils # (auto) 0 uL; Basophils % (auto) 0.4 % (0.0-2.0); Hematocrit 44.1 % (41.0-53.0); Lymphocytes # (auto) 1.1 uL; Lymphocytes % (auto) 20.1 % (10.0-50.0); Mean Corpuscular Hemoglobin 26.6 pg (28.0-32.0); Mean Corpuscular Hgb Conc. 31.7 g/dL (32.0-36.0); Neutrophils # (auto) 3.8 uL; Neutrophils % (auto) 68.3 % (37.0-80.0); Nucleated Red Blood Cells % 1.2 %; Platelet Count (auto) 272 10^3/uL (140-450); Red Cell Distribution Width 19.9 % (11.8-14.3); White Blood Cell 5.6 10^3/uL (4.4-10.8)
[2019-01-11 16:13] LABS: BUN/Creatinine Ratio 18.5; Magnesium 2.4 mg/dL (1.6-2.6)
[2019-01-11 16:16] LABS: Potassium 3.5 mmol/L (3.5-5.1)
--- NOTE | 2019-01-11 16:20 | NUR ---
IV removal IV DC'd with sterile technique, catheter fully intact. Pressure dressing applied to site. Patient tolerated procedure well. Discharged with aftercare instructions per MD. NOTE:
[2019-01-11 16:30] VITALS: BP 124/84
== END | disposition home or self-care (01) ==
LOC: CHF HDHVI 12:13
PROVIDERS: ATTEND Internal Medicine Cardiovascular Disease
DX: I13.0 Hypertensive heart and chronic kidney disease with heart failure and stage 1 through stage 4 chronic kidney disease, or unspecified chronic kidney disease (principal); I50.42 Chronic combined systolic (congestive) and diastolic (congestive) heart failure; N18.3 Chronic kidney disease, stage 3 (moderate); I49.9 Cardiac arrhythmia, unspecified; D64.9 Anemia, unspecified; I11.0 Hypertensive heart disease with heart failure; F41.9 Anxiety disorder, unspecified; E66.01 Morbid (severe) obesity due to excess calories; I25.10 Atherosclerotic heart disease of native coronary artery without angina pectoris; E78.5 Hyperlipidemia, unspecified; I25.2 Old myocardial infarction; Z68.37 Body mass index [BMI] 37.0-37.9, adult; Z79.01 Long term (current) use of anticoagulants; Z95.810 Presence of automatic (implantable) cardiac defibrillator; Z86.73 Personal history of transient ischemic attack (TIA), and cerebral infarction without residual deficits
CPT/HCPCS: 36415; 80048; 83735; 83880; 85025; 93701; 96365; 96366; 96372; 96375; G0463; J1250; J1940; J3420

== ENCOUNTER 2019-01-15 01:35 | Inpatient (IN) | payer MEDICARE, MEDICAID | END 2019-01-22 17:00 | disposition home or self-care (01) | LOC: ER 01:35 → TELE 06:52 → TELE-EAST 15:25 | DX: I11.0 Hypertensive heart disease with heart failure (principal); I50.21 Acute systolic (congestive) heart failure; I63.9 Cerebral infarction, unspecified; N28.9 Disorder of kidney and ureter, unspecified; R73.9 Hyperglycemia, unspecified; R74.8 Abnormal levels of other serum enzymes; G47.30 Sleep apnea, unspecified; E66.9 Obesity, unspecified ==

== ENCOUNTER 2019-02-06 04:09 | Inpatient (IN) | payer MEDICARE, MEDICAID ==
[~2019-02-06] VITALS: Ht 172.7 cm; Wt 111.6 kg
[2019-02-06] VITALS (25 sets, daily range): BP systolic 113–144; BP diastolic 63–89
[~2019-02-06 04:09] MED LIST changes: -CYANOCOBALAMIN (B-12) 1000 MCG/1 ML VIAL IM ONE; -CYANOCOBALAMIN (B-12) 1000 MCG/1 ML VIAL ONE; -DOBUTamine 1000MCG/ML 250 ML IV ONE; -FUROSEMIDE 100 MG/10ML VIAL IV ONE; -FUROSEMIDE 20 MG/2 ML VIAL ONE; -FUROSEMIDE INJECTION 10 ML ONE; -POTASSIUM CHL 10 Meq TABLET PO ONE; -POTASSIUM CHL 20 Meq TABLET PO ONE
[2019-02-06] MEDS ORDERED: methylPREDNISolone SOD SUCC 125 MG/2 ML VL IV ONE (05:45)
[2019-02-06] MEDS ORDERED: IPRATROPIUM BROM 0.5 MG/2.5ML INH SOL NEB ONE (05:45)
[2019-02-06] MEDS ORDERED: ALBUTEROL SULF 2.5 MG/0.5ML(0.5%) NEB SOLN NEB ONE (05:45)
[2019-02-06] MEDS ORDERED: methylPREDNISolone SOD SUCC 125 MG/2 ML VL IM ONE (06:15)
[2019-02-06] MEDS ORDERED: SODIUM CHLORIDE 0.9% 1,000 ML IV ONE (07:18)
[2019-02-06] MEDS ORDERED: METOPROLOL TARTRATE 1MG/1ML-5ML VIAL IV ONE ×3 (07:30→09:32)
[2019-02-06] MEDS ORDERED: FUROSEMIDE 40 MG/4 ML VIAL IV ONE ×2 (07:30→11:45)
[2019-02-06 08:07] LABS: Basophils # (auto) 0 uL; Basophils % (auto) 0.7 % (0.0-2.0); Monocytes # (auto) 0.5 uL; Monocytes % (auto) 9.1 % (0.0-12.0)
[2019-02-06 08:11] LABS: Eosinophils # (auto) 0.1 uL; Eosinophils % (auto) 1.2 % (0.0-7.0); Hemoglobin 13.4 g/dL (13.5-17.5); Lymphocytes # (auto) 0.9 uL; Lymphocytes % (auto) 17.8 % (10.0-50.0); Mean Corpuscular Hemoglobin 26.3 pg (28.0-32.0); Mean Corpuscular Hgb Conc. 31.8 g/dL (32.0-36.0); Mean Corpuscular Volume 82.7 fL (80.0-100.0); Neutrophils # (auto) 3.7 uL; Neutrophils % (auto) 71.2 % (37.0-80.0); Nucleated Red Blood Cells % 1.2 %; Platelet Count (auto) 234 10^3/uL (140-450); Red Blood Cells 5.08 10^6/uL (4.5-5.90); Red Cell Distribution Width 18.5 % (11.8-14.3); White Blood Cell 5.1 10^3/uL (4.4-10.8)
[2019-02-06] MEDS ORDERED: LORazepam 2MG/ML-1ML VIAL IV ONE (08:15)
[2019-02-06 08:22] LABS: INR 1.23 (0.9-1.15); Partial Thromboplastin Time 32.6 sec (23.78-33.04)
[2019-02-06 08:30] LABS: Albumin 3.7 g/dL (3.4-5.0); Potassium 3.5 mmol/L (3.5-5.1)
[2019-02-06 08:35] LABS: BUN/Creatinine Ratio 15.3; Bilirubin, Total 0.5 mg/dL (0.2-1.0); Total Protein 7.7 g/dL (6.4-8.2)
[2019-02-06 08:59] LABS: Urine Bacteria NONE SEEN /hpf (None Seen); Urine Blood Negative /uL (Negative); Urine Specific Gravity 1.013 (1.001-1.035); Urine WBC <1 /hpf (0 - 3)
[2019-02-06] MEDS ORDERED: MIDAZOLAM HCL 5 MG/ML-1ML VIAL IV ONE (11:00)
[2019-02-06] MEDS ORDERED: MIDAZOLAM DRIP 50 mg/50mL 50 ML IV ONE (11:02)
[2019-02-06] MEDS: MIDAZOLAM DRIP 50 mg/50mL 50 ML IV SCH ×4 (11:12→21:44)
[2019-02-06] MEDS: PROPOFOL 100 ML IV SCH ×2 (11:39→22:55)
[2019-02-06] MEDS ORDERED: NITROGLYCERIN 0.4 MG SL TAB SL PRN (15:15)
[2019-02-06] MEDS ORDERED: MORPHINE SULF INJ 2 MG/ML SYRINGE 1ML IV PRN (15:15)
--- NOTE | 2019-02-06 17:07 | NUR ---
PICC line placement Patient/Patient significant other educated on need for PICC line placement. All risks and benefits explained and all questions and concerns addressed prior to procedure. Noted past medical history and allergies with no contraindications. INR and Plt counts within acceptable range. 5 fr PICC line inserted via right brachial vein using [employer]'s [employer] US and Tip Location System. Sterile technique with maximum barrier precautions utilized. Blood return obtained from each of the three lumens and each flushed easily with NS using proper technique. PICC secured with Stat-lock; biodisc and occlusive dressing applied. Less than 5ml EBL noted during procedure. PICC line 43cm internally w/ 0cm externally. Stat portable chest x-ray obtained for PICC tip placement. To notify staffing executive when line able to be used. *Baseline Arm Circumference 37cm at 1cm above insertion site. PICC lot # [id number]. Note:
[2019-02-06] MEDS ORDERED: LIDOCAINE 1% (LOCAL ANESTH.) PF 5ml SDV ID ONE (17:15)
--- NOTE | 2019-02-06 17:27 | NUR ---
OK to use PICC line Xray completed. PCXR shows PICC line tip in the region of the distal SVC/CAJ; radiologist confirmation pending. Babar Cho. notified now OK to use PICC line.
[2019-02-06] MEDS: MILRINONE 20MG/100ML 100 ML IV SCH (17:42)
[2019-02-06] MEDS: FUROSEMIDE INJECTION 500 MG in D5W 5% 450 ML IV SCH (17:43)
--- NOTE | 2019-02-06 19:30 | NUR ---
OPEN NOTES RECEIVED REPORT FROM HAYLEY CLAUDIO.INTUBATED AND SEDATED. WITH DRIPS: IV PROPOFOL, VERSED, MILRINONE AND IV LASIX REFER INTERVENTION FOR FULL ASSESSMENT
[2019-02-06] MEDS: SODIUM CHLOR 0.9% PF (SALINE LOCK) 10ML VIAL/SYR IV SCH (21:58)
[2019-02-06] MEDS: POTASSIUM EFFERVESENT TAB 25 MEQ PO SCH (22:48)
[2019-02-07] VITALS (94 sets, daily range): BP systolic 89–124; BP diastolic 42–72
--- NOTE | 2019-02-07 00:10 | NUR ---
CALLED PATIENT'S GEORGINA CALLED.INFORMED HER THAT SINCE NO PASSWORD WAS SET UP, THIS RN CANNOT GIVE GIVE INFORMATION OVER THE PHONE. UNDERSTANDS. SHE WILL COME HERE TOMORROW MORNING TELEPHONE NUMBER [phone]
[2019-02-07] MEDS: MILRINONE 20MG/100ML 100 ML IV SCH ×4 (00:28→23:36)
[2019-02-07] MEDS: MIDAZOLAM DRIP 50 mg/50mL 50 ML IV SCH ×3 (00:37→17:52)
--- NOTE | 2019-02-07 02:24 | NUR ---
FLAVOR TANK TENDER SHOWING HR 160/MIN EKG RHYTHM PACED, HR80'S/MIN MANUAL CHECK = 84/MIN BP STABLE
--- NOTE | 2019-02-07 04:00 | NUR ---
HYGIENE PATIENT CLEANED LINENS CHANGED
--- NOTE | 2019-02-07 04:30 | NUR ---
REPORT REPORT GIVEN TO HAYLEY DAWSON
--- NOTE | 2019-02-07 05:17 | NUR ---
REPORT REPORT GIVEN TO HAYLEY HUDSON
[2019-02-07 05:28] LABS: Basophils # (auto) 0 uL; Basophils % (auto) 0.2 % (0.0-2.0); Eosinophils # (auto) 0 uL; Hematocrit 38.8 % (41.0-53.0); Hemoglobin 12.7 g/dL (13.5-17.5); Lymphocytes # (auto) 0.3 uL; Lymphocytes % (auto) 5.3 % (10.0-50.0); Mean Corpuscular Hemoglobin 26.8 pg (28.0-32.0); Mean Corpuscular Hgb Conc. 32.7 g/dL (32.0-36.0); Mean Corpuscular Volume 81.9 fL (80.0-100.0); Monocytes # (auto) 0.4 uL; Monocytes % (auto) 6.9 % (0.0-12.0); Neutrophils # (auto) 5.1 uL; Neutrophils % (auto) 87.6 % (37.0-80.0); Nucleated Red Blood Cells % 0.5 %; Platelet Count (auto) 228 10^3/uL (140-450); Red Blood Cells 4.74 10^6/uL (4.5-5.90); Red Cell Distribution Width 18.6 % (11.8-14.3); White Blood Cell 5.8 10^3/uL (4.4-10.8)
[2019-02-07 06:06] LABS: Calcium 7.2 mg/dL (8.5-10.1)
--- NOTE | 2019-02-07 06:25 | NUR ---
PT ARRIVED FROM ER VIA BED, TRANSFERRED TO ICU BED AND CONNECTED TO MONITOR AND MECHANICAL VENT. PT IS SEDATED , NGT AND F/C IN PLACE, TL PICC LINE PRESENT IN ROSANA, ON MILRINONE , LASIX, PROPOFOL AND VERSED GTTG. NO SKIN ISSUES; PACED RHYTHM BP STABLE. PT ASSESSED, ORDERS REVIEWED.
[2019-02-07 08:06] LABS: BUN/Creatinine Ratio 14.9
[2019-02-07] MEDS: POTASSIUM EFFERVESENT TAB 25 MEQ PO SCH ×2 (10:07→22:14)
[2019-02-07] MEDS: SODIUM CHLOR 0.9% PF (SALINE LOCK) 10ML VIAL/SYR IV SCH ×2 (10:07→22:14)
--- NOTE | 2019-02-07 11:00 | NUR ---
Family updated on pt status Family of GREGORY CHAIREZ updated on patient's status and condition. All questions and concerns addressed. verbalized understanding, pw updated. Per patient was recently discharged for right eye peripheral vision loss in December. States patient was dx with CVA in Jul for which he was unable to speak. Per patient current speaks and expresses his needs but does at times studder and at times speech is delayed. She states patient is able to ambulate without any assistance. He currently lives with a friend and they "care for each other and help one another out", as she lives in [place]. She has also stated patient has been worsening due to his weak heart as they have been told his Ef is only 10%. remains at bedside with patient.
--- NOTE | 2019-02-07 13:00 | NUR ---
WOUND CARE NOTE: IN TO SEE PATIENT FOR SKIN INTEGRITY AT THIS TIME PER WOUND CARE REQUEST. PATIENT ADMITTED TO [facility] WITH CHF. HE IS IN ICU, INTUBATED, SEDATED. CURRENT INGA SCORE IS 13. PATIENT IS NOTED TO BE WOUND FREE, WITH BLANCHABLE SOSA SKIN NOTED TO ALL BONY PROMINENCES. SKIN/WOUND CARE PLAN IMPLEMENTED. RECOMMEND: FREQUENT TURN SCHEDULE Q 2 HOURS, PRN CONDITION PERMITS, WITH PRESSURE REDISTRIBUTION USING PILLOWS/WEDGES, BID/PRN APPLICATION WITH MOISTURE BARRIER CREAM, OPTIFOAM GENTLE SACRAL DRESSING PREVENTATIVE, DIETARY CONSULT FOR IMMOBILITY/INTUBATION STATUS, SKIN CARE PLAN, CONTINUED MONITORING BY WOUND CARE TEAM.
[2019-02-07] MEDS: PROPOFOL 100 ML IV SCH ×2 (15:06→22:40)
--- NOTE | 2019-02-07 17:21 | NUR ---
PAGED Dr. Leiva paged to notify patient is currently not on any medications for prophylaxis measures ex. lovenox or protonix. Also to receive orders for tube feedings. See new orders. Scd's remain in place at this time.
[2019-02-07] MEDS: FUROSEMIDE INJECTION 500 MG in D5W 5% 450 ML IV SCH (17:52)
--- NOTE | 2019-02-07 19:15 | NUR ---
OPEN ASSUMED CARE, FULL ASSESSMENT DONE; SEE INTERVENTIONS. PROPOFOL, VERSED, MILRINONE, AND LASIX GTTs INFUSING PER IV SPREADSHEET. PT. V- PACED IN THE 80s, SBP HIGH 90s, POX 92-93%. ORAL CARE AND REPOSITIONING DONE. CONTINUE CARE.
[2019-02-07] MEDS: ESOMEPRAZOLE 40 MG/5ml VIAL INJ IV SCH (19:46)
[2019-02-08] VITALS (97 sets, daily range): BP systolic 80–124; BP diastolic 34–73
[2019-02-08 03:29] LABS: Basophils # (auto) 0 uL; Basophils % (auto) 0.3 % (0.0-2.0); Eosinophils # (auto) 0 uL; Eosinophils % (auto) 0.3 % (0.0-7.0); Hemoglobin 14.2 g/dL (13.5-17.5); Monocytes # (auto) 1.1 uL; Nucleated Red Blood Cells % 0.2 %
[2019-02-08 03:32] LABS: Hematocrit 43.4 % (41.0-53.0); Lymphocytes # (auto) 0.9 uL; Mean Corpuscular Hemoglobin 26.4 pg (28.0-32.0); Mean Corpuscular Hgb Conc. 32.7 g/dL (32.0-36.0); Mean Corpuscular Volume 80.7 fL (80.0-100.0); Monocytes % (auto) 11.7 % (0.0-12.0); Neutrophils # (auto) 7.2 uL; Neutrophils % (auto) 77.7 % (37.0-80.0); Platelet Count (auto) 216 10^3/uL (140-450); Red Blood Cells 5.38 10^6/uL (4.5-5.90); Red Cell Distribution Width 18.9 % (11.8-14.3); White Blood Cell 9.3 10^3/uL (4.4-10.8)
[2019-02-08 03:46] LABS: Potassium 3.8 mmol/L (3.5-5.1)
[2019-02-08 03:50] LABS: Albumin 2.9 g/dL (3.4-5.0); Calcium 9.1 mg/dL (8.5-10.1)
[2019-02-08 04:00] LABS: Bilirubin, Total 0.5 mg/dL (0.2-1.0); Total Protein 7.1 g/dL (6.4-8.2)
[2019-02-08] MEDS: PROPOFOL 100 ML IV SCH ×3 (05:11→21:10)
--- NOTE | 2019-02-08 05:11 | NUR ---
CARES FULL BATH AND LINEN CHANGE DONE, NO SKIN ISSUES ASSESSED. PT TOLERATED WELL, VITAL SIGNS STABLE. CONTINUE CARE.
[2019-02-08] MEDS: MIDAZOLAM DRIP 50 mg/50mL 50 ML IV SCH (07:06)
--- NOTE | 2019-02-08 07:07 | NUR ---
REPORT CARE ENDORSED TO HAYLEY OSULLIVAN.
--- NOTE | 2019-02-08 08:36 | NUR ---
SEXUAL HEALTH PHYSICIAN AT BEDSIDE.
--- NOTE | 2019-02-08 09:44 | NUR ---
Senior Tableau Developer Dr. Moe aware of consult. Md at bedside. New orders in place. R.T. aware. ABG in a.m.
[2019-02-08] MEDS: SODIUM CHLOR 0.9% PF (SALINE LOCK) 10ML VIAL/SYR IV SCH ×2 (10:02→22:16)
[2019-02-08] MEDS: POTASSIUM EFFERVESENT TAB 25 MEQ PO SCH ×2 (10:02→22:16)
[2019-02-08] MEDS: ESOMEPRAZOLE 40 MG/5ml VIAL INJ IV SCH (10:02)
[2019-02-08] MEDS: MILRINONE 20MG/100ML 100 ML IV SCH ×2 (10:03→15:11)
--- NOTE | 2019-02-08 10:32 | NUR ---
Sedation Patient becoming slightly agitated, moving bilateral arms, attempting to lift up head, no yet opening eyes or following commands . Sedation increased for comfort at this time as there are not plans for cpap today.
--- NOTE | 2019-02-08 10:32 | NUR ---
Family updated on pt status Family of GREGORY CHAIREZ updated on patient's status and condition. All questions and concerns addressed. , Maude verbalized understanding.
[2019-02-08] MEDS ORDERED: MIDAZOLAM DRIP 50 mg/50mL 50 ML IV SCH (17:45)
--- NOTE | 2019-02-08 18:37 | NUR ---
Family updated on pt status Family of GREGORY CHAIREZ updated on patient's status and condition. All questions and concerns addressed. Maude verbalized understanding.
--- NOTE | 2019-02-08 18:42 | NUR ---
Pt remains moderately sedated on ventilator. No distress noted. VSS. Possible cpap in a.m.
[2019-02-08] MEDS: FUROSEMIDE INJECTION 500 MG in D5W 5% 450 ML IV SCH (18:43)
--- NOTE | 2019-02-08 18:56 | NUR ---
ROUNDS DR. JACOBSEN AT BEDSIDE. MD NOTIFIED OF BP TREND. MD STATED OK TO CONTINUE WITH CURRENT GTTS, NO CHANGE OF RATE. MD ALSO NOTIFIED OF YELLOW THICK SECRETIONS NOTED FROM ORAL SECRETIONS. NEW ORDERS IN PLACE. NOC NURSE TO CARRY OUT. CPAP FOR A.M. NOC NURSE AWARE.
--- NOTE | 2019-02-08 19:30 | NUR ---
OPEN ASSUMED CARE, FULL ASSESSMENT DONE; SEE INTERVENTIONS. PT RESTLESS AT THIS TIME, RAISING HANDS TOWARDS ETT, NOT FOLLOWING COMMANDS. MARGY MITTENS IN PLACE, INCREASED SEDATION FOR PT COMFORT AND SAFETY, SEE IV SPREADSHEET. HR V PACED IN THE HIGH 90s, SBP STABLE. ORAL CARE AND REPOSITIONING DONE, CONTINUE CARE.
[2019-02-08] MEDS ORDERED: cefTRIAXone 1GM/50ML D5W 50 ML IV ONE (20:00)
[2019-02-09] VITALS (104 sets, daily range): BP systolic 76–126; BP diastolic 40–103
[2019-02-09] MEDS: MILRINONE 20MG/100ML 100 ML IV SCH ×4 (00:10→23:36)
--- NOTE | 2019-02-09 00:30 | NUR ---
VERSED BEGINNING TO TITRATE VERSED OFF AT THIS TIME PER MD ORDER IN PREPARATION FOR CPAP TRIAL IN AM.
[2019-02-09 03:45] LABS: Basophils # (auto) 0 uL; Basophils % (auto) 0.4 % (0.0-2.0); Eosinophils # (auto) 0.1 uL; Lymphocytes # (auto) 0.8 uL
[2019-02-09 03:48] LABS: Eosinophils % (auto) 0.5 % (0.0-7.0); Hematocrit 46.2 % (41.0-53.0); Hemoglobin 14.8 g/dL (13.5-17.5); Lymphocytes % (auto) 6.4 % (10.0-50.0); Mean Corpuscular Hgb Conc. 32.1 g/dL (32.0-36.0); Mean Corpuscular Volume 81.2 fL (80.0-100.0); Monocytes # (auto) 1.7 uL; Monocytes % (auto) 14.4 % (0.0-12.0); Neutrophils # (auto) 9.3 uL; Neutrophils % (auto) 78.3 % (37.0-80.0); Nucleated Red Blood Cells % 0.2 %; Platelet Count (auto) 221 10^3/uL (140-450); Red Blood Cells 5.69 10^6/uL (4.5-5.90); White Blood Cell 11.8 10^3/uL (4.4-10.8)
[2019-02-09 04:05] LABS: Albumin 2.8 g/dL (3.4-5.0); Calcium 8.9 mg/dL (8.5-10.1); Potassium 4.2 mmol/L (3.5-5.1)
--- NOTE | 2019-02-09 04:06 | NUR ---
VERSED/CARES VERSED TITRATED OFF AT THIS TIME. FULL BATH AND LINEN CHANGE DONE, NO NEW SKIN ISSUES ASSESSED.
[2019-02-09 04:10] LABS: Bilirubin, Total 0.7 mg/dL (0.2-1.0); Total Protein 7.7 g/dL (6.4-8.2)
--- NOTE | 2019-02-09 09:00 | NUR ---
SEDATION VACATION; Patient titrated off of Diprivan in preparation for CPAP trial. At this time patient attempts to open eyes to verbal stimuli but is unable to follow commands. Will communicate readiness for weaning with RT.
--- NOTE | 2019-02-09 10:00 | NUR ---
ROUNDS: Patient remains groggy, unable to follow commands. Patient is restless and is kicking feet, reorientation provided, patient is not amendable to redirection or teaching at this time.
[2019-02-09] MEDS: POTASSIUM EFFERVESENT TAB 25 MEQ PO SCH ×2 (10:24→21:50)
[2019-02-09] MEDS: ESOMEPRAZOLE 40 MG/5ml VIAL INJ IV SCH (10:25)
[2019-02-09] MEDS: cefTRIAXone 1GM/50ML D5W 50 ML IV SCH (10:26)
[2019-02-09] MEDS: SODIUM CHLOR 0.9% PF (SALINE LOCK) 10ML VIAL/SYR IV SCH ×2 (10:26→21:50)
--- NOTE | 2019-02-09 11:30 | NUR ---
NUTRITION CONSULT/ASSESSMENT NOTES Please refer to link notes of nutrition screen form filed under the intervention section of the plan of care for further details. Est. Needs: 1700 kcal to 2250 kcal (15-20 kcal/kgBW), 70 gms to 113 gms pro (0.8-1.0 gms/kgBW). Will continue to monitor pertinent labs and reassess nutrient need prn Thank you for this consult. Addendum: 02/09/19 at [address] Amended: Links added.
--- NOTE | 2019-02-09 12:00 | NUR ---
ROUNDS: Patient continues to be agitated, does open eyes to name. Able to follow simple commands, however, patient remains groggy not ready for CPAP trial at this time.
--- NOTE | 2019-02-09 14:00 | NUR ---
ROUNDS: Patient very agitated but calms down when reorientation and redirection provided. Patient continues to be able to follow simple commands, RT notified of readiness to attempt weaning.
--- NOTE | 2019-02-09 14:15 | NUR ---
Respiratory note: PT PLACED ON SIMV AT THIS TIME. PT DID NOT TOLERATED MODE. PATIENT BECAME TACHYPNEIC AND TIDAL VOLUME DECREASED. MD AND RN INFORMED.
--- NOTE | 2019-02-09 14:20 | NUR ---
CPAP TRIAL FAILED: Patient failed CPAP trial, RR maintained 30-40. Patient is very agitated and only able to intermittently follow commands. Patient with multiple attempts to pull at ETT. Re-started Diprivan drip at 5 mcg's, will titrate to achieve RASS of -3.
[2019-02-09] MEDS: PROPOFOL 100 ML IV SCH ×4 (14:30→23:36)
--- NOTE | 2019-02-09 17:30 | NUR ---
DE-SATURATION: Patient repositioned to left side, did not tolerate. After repositioning saturations decreased to 82% and patient became hypotensive with blood pressure decreasing to 75/46. Patient removed from the left side position, Diprivan drip decreased from 50 mcg's to 40 mcg's.
[2019-02-09] MEDS: FUROSEMIDE INJECTION 500 MG in D5W 5% 450 ML IV SCH (17:44)
--- NOTE | 2019-02-09 18:30 | NUR ---
DESATURATION; Patient continues with decreased saturations, O2 sat maintaining 88%, RT at bedside. Blood pressure decreased to 78/45, Diprivan drip decreased to 30 mcg's.
--- NOTE | 2019-02-09 19:30 | NUR ---
OPEN ASSUMED CARE, FULL ASSESSMENT DONE; SEE INTERVENTIONS. DIPRIVAN, MILRINONE, AND LASIX GTTs INFUSING PER IV SPREADSHEET TO ROSANA TRIPLE LUMEN PICC. VITAL SIGNS STABLE AT THIS TIME. WILL DO MINIMAL REPOSITIONING TO LEFT SIDE PER DAY SHIFT RN, DESATURATING OCCURRED WHEN REPOSITIONED TO LEFT SIDE. ORAL CARE DONE, VITAL SIGNS STABLE. CONTINUE CARE.
[2019-02-10] VITALS (95 sets, daily range): BP systolic 77–111; BP diastolic 35–68
[2019-02-10 04:00] LABS: Albumin 2.7 g/dL (3.4-5.0); Potassium 4.7 mmol/L (3.5-5.1)
[2019-02-10 04:04] LABS: BUN/Creatinine Ratio 15.9; Bilirubin, Total 0.8 mg/dL (0.2-1.0)
[2019-02-10 04:36] LABS: Basophils # (auto) 0.1 uL; Basophils % (auto) 0.4 % (0.0-2.0); Eosinophils # (auto) 0.1 uL; Eosinophils % (auto) 0.7 % (0.0-7.0); Hematocrit 45.8 % (41.0-53.0); Hemoglobin 14.7 g/dL (13.5-17.5); Lymphocytes % (auto) 5.9 % (10.0-50.0); Mean Corpuscular Hgb Conc. 32.2 g/dL (32.0-36.0); Mean Corpuscular Volume 80.8 fL (80.0-100.0); Monocytes # (auto) 1.8 uL; Monocytes % (auto) 11.1 % (0.0-12.0); Neutrophils # (auto) 13.4 uL; Neutrophils % (auto) 81.9 % (37.0-80.0); Nucleated Red Blood Cells % 0.1 %; Platelet Count (auto) 196 10^3/uL (140-450); Red Blood Cells 5.66 10^6/uL (4.5-5.90); Red Cell Distribution Width 19.1 % (11.8-14.3); White Blood Cell 16.4 10^3/uL (4.4-10.8)
--- NOTE | 2019-02-10 06:40 | NUR ---
NO CHANGE IN STATUS THROUGHOUT NIGHT, DIPRIVAN WEANED DOWN TO 10 MCGs AT THIS TIME FOR POSSIBLE CPAP.
--- NOTE | 2019-02-10 07:10 | NUR ---
REPORT CARE ENDORSED TO HAYLEY LOVETT
[2019-02-10] MEDS: MORPHINE SULFATE 4 MG/ML SYR/VIAL IV PRN (07:30)
--- NOTE | 2019-02-10 09:00 | NUR ---
DR. José Miguel HARTMAN AT BEDSIDE: ORDERS MD UPDATED ON PT'S STATUS, TRENDING LAB RESULTS AND VS/HEMODYNAMICS AT THIS TIME. ORDERS GIVEN TO HOLD CPAP TRIAL FOR TODAY DUE IN INCREASE IN WBC'S. ALSO, MED NEB ORDERS GIVEN FOR PATIENT AT THIS TIME. CONTINUE CARE. PENDING CPAP FOR TOMORROW AM, 02-11-19 AT 0800.
[2019-02-10] MEDS: MILRINONE 20MG/100ML 100 ML IV SCH ×3 (09:07→22:48)
[2019-02-10] MEDS: cefTRIAXone 1GM/50ML D5W 50 ML IV SCH (09:45)
[2019-02-10] MEDS: POTASSIUM EFFERVESENT TAB 25 MEQ PO SCH ×2 (09:48→22:12)
[2019-02-10] MEDS: SODIUM CHLOR 0.9% PF (SALINE LOCK) 10ML VIAL/SYR IV SCH ×2 (09:48→22:00)
[2019-02-10] MEDS: ESOMEPRAZOLE 40 MG/5ml VIAL INJ IV SCH (10:00)
[2019-02-10] MEDS ORDERED: ALBUTEROL SULF 2.5 MG/0.5ML(0.5%) NEB SOLN NEB PRN (10:30)
[2019-02-10] MEDS: IPRATROPIUM BROM 0.5 MG/2.5ML INH SOL NEB SCH ×2 (11:50→18:45)
[2019-02-10] MEDS: PROPOFOL 100 ML IV SCH ×3 (14:17→22:40)
--- NOTE | 2019-02-10 15:15 | NUR ---
DR. JACOBSEN AT BEDSIDE: ORDERS DR. JACOBSEN UPDATED ON PT'S CURRENT STATUS, TRENDING LABS AND HEMODYNAMICS AT THIS TIME. ORDERS GIVEN AND TO BE CARRIED OUT. CONTINUE CARE.
[2019-02-10] MEDS: FUROSEMIDE INJECTION 500 MG in D5W 5% 450 ML IV SCH (16:27)
--- NOTE | 2019-02-10 18:02 | NUR ---
PAGED DR. JACOBSEN: CLARIFY ORDERS WAITING FOR CALLBACK FROM MD. WANTING TO CLARIFY IF MD WANTS PATIENT BACK ON PO COUMADIN PER PHARMACY OR TO PUT PATIENT ON LOVENOX. WILL CONTINUE TO MONITOR.
[2019-02-10] MEDS: PIPERACILLIN-TAZO 4.5GM 100 ML IV SCH (18:30)
--- NOTE | 2019-02-10 20:00 | NUR ---
ADMITTED ON 02/06/2019 WITH CHF EXACERBATION. ALL BODY SWELLING. PATIENT WAKES UP WITH STIMULATION. OPENS EYES, WEAK COUGH AND GAG. FOUL ODOR FROM MOUTH. SUCTIONED A MODERATE AMOUNT OF CLEAR/THEN THICK YELLOW FROM THE ORAL CAVITY. SUCTIONED THE ORAL ETT FOR A MODERATE AMOUNT OF THICK YELLOW SECRETIONS. LUNGS ARE COARSE THROUGHOUT. 02 SAT 96% ON FIO2 OF 35%. ABDOMEN SOFT. LEFT NARE NGT : RESIDUAL 10CC OF GREEN LIQUID. PLACEMENT CHECKED. VENTILATOR: AC 12, RR 15. ALL PULSES WEAK. ALL EXTREMITIES WARM. CONTRERAS IN PLACE DRAINING CLEAR YELLOW LIQUID IN ADEQUATE AMOUNTS. RIGHT PICC LINE WITH CURRENT DRESSING AND BIOPATCH. MILRINONE, LASIX AND DIPRIVAN THROUGH THE PICC LINE. STARTING LOVENOX TONIGHT. SCDS ON. NO SKIN ISSUES. TEMP 99.8. NO SHEETS ON. ICE BAG TO BACK OF NECK. NOT WITHDRAWING TO PAINFUL STIMULI. PACER: 100% V PACED.
--- NOTE | 2019-02-10 22:00 | NUR ---
VSS. 100% V PACED. WOKE UP A LITTLE , SHAKING HIS LEGS. NOTHING SUCTIONED FROM ETT. ORAL CARE DONE. REPOSITIONED TO BACK.
[2019-02-10] MEDS: ENOXAPARIN SOD 60 MG/0.6 ML SYRINGE SC SCH (22:12)
[2019-02-11] VITALS (95 sets, daily range): BP systolic 62–120; BP diastolic 32–73
--- NOTE | 2019-02-11 | NUR ---
REMAINS 100% V PACED RATE IN 88-91 RANGE. B/P STABLE. YULIYA. MOVES EXTREMITIES IN A WEAK MANNER. OVERBREATHING THE VENTILATOR. IV TUBINGS CHANGED AND LABELED.
[2019-02-11] MEDS: ALBUTEROL SULF 2.5 MG/0.5ML(0.5%) NEB SOLN NEB SCH ×4 (00:15→18:02)
[2019-02-11] MEDS: IPRATROPIUM BROM 0.5 MG/2.5ML INH SOL NEB SCH ×4 (00:15→18:02)
--- NOTE | 2019-02-11 02:00 | NUR ---
VSS. LUNGS COARSE. SUCTIONING A MODERATE AMOUNT OF THICK YELLOW SECRETIONS. 100% V PACED. RATE IS 88-92. WAKES UP EASILY. ABDOMEN SOFT.
[2019-02-11] MEDS: PIPERACILLIN-TAZO 4.5GM 100 ML IV SCH ×3 (02:02→18:40)
[2019-02-11] MEDS: PROPOFOL 100 ML IV SCH (02:59)
[2019-02-11 03:55] LABS: Basophils # (auto) 0 uL; Basophils % (auto) 0.4 % (0.0-2.0); Eosinophils # (auto) 0.1 uL; Hematocrit 40.5 % (41.0-53.0); Hemoglobin 14.2 g/dL (13.5-17.5); Lymphocytes # (auto) 0.7 uL; Lymphocytes % (auto) 6.7 % (10.0-50.0); Mean Corpuscular Hemoglobin 28.2 pg (28.0-32.0); Mean Corpuscular Hgb Conc. 34.9 g/dL (32.0-36.0); Mean Corpuscular Volume 80.7 fL (80.0-100.0); Monocytes # (auto) 1.1 uL; Monocytes % (auto) 10.5 % (0.0-12.0); Neutrophils # (auto) 8.6 uL; Neutrophils % (auto) 81.4 % (37.0-80.0); Platelet Count (auto) 204 10^3/uL (140-450); Red Blood Cells 5.02 10^6/uL (4.5-5.90); Red Cell Distribution Width 18.6 % (11.8-14.3); White Blood Cell 10.6 10^3/uL (4.4-10.8)
--- NOTE | 2019-02-11 04:00 | NUR ---
CHG BATH. PANUS SKIN IS GOOD. OPTIFOAM ON COCCYX PROPHYLACTIC. IV SITE SHOWS NO REDNESS OR SWELLING
[2019-02-11 04:35] LABS: Calcium 7.6 mg/dL (8.5-10.1); Potassium 4.4 mmol/L (3.5-5.1)
[2019-02-11] MEDS: MILRINONE 20MG/100ML 100 ML IV SCH ×3 (05:00→19:59)
[2019-02-11] MEDS: MORPHINE SULFATE 4 MG/ML SYR/VIAL IV PRN (08:33)
[2019-02-11] MEDS: SODIUM CHLOR 0.9% PF (SALINE LOCK) 10ML VIAL/SYR IV SCH ×2 (09:58→22:00)
[2019-02-11] MEDS: POTASSIUM EFFERVESENT TAB 25 MEQ PO SCH ×2 (09:58→22:00)
[2019-02-11] MEDS: ESOMEPRAZOLE 40 MG/5ml VIAL INJ IV SCH (10:30)
[2019-02-11] MEDS: ENOXAPARIN SOD 60 MG/0.6 ML SYRINGE SC SCH ×2 (10:30→22:00)
--- NOTE | 2019-02-11 10:30 | NUR ---
WEANED OFF SEDATION: CPAP TRIAL STARTED AT THIS TIME PATIENT HAVING HIGH LEVELS OF ANXIETY, BUT PATIENT'S VITAL SIGNS ARE STABLE. WILL CONTINUE TO MONITOR.
--- NOTE | 2019-02-11 11:12 | NUR ---
RT NOTE: DR. José Miguel HARTMAN OFFICE CALLED. INFO GIVEN TO SHI FOR CALL BACK FROM DR. José Miguel HARTMAN FOR ABG RESULTS FROM CPAP TRIAL.
--- NOTE | 2019-02-11 11:30 | NUR ---
RT NOTE: PT. EXTUBATED WITHOUT INCIDENT, PER TELEPHONE ORDER. NO STRIDOR NOTED. PT. PLACED ON BREATHING TX. AND THEN WILL BE PLACED ON COOL AEROSOL MASK AT 40% FIO2. PT. HR 82, RR 24, POX 97%. HAYLEY LOVETT AT BEDSIDE. WILL CONTINUE TO MONITOR.
--- NOTE | 2019-02-11 12:00 | NUR ---
PAGED DR. JACOBSEN: EXTUBATION INFORMED DR. JACOBSEN AT THIS TIME THAT PATIENT IS EXTUBATED AT 1130. WILL CONTINUE TO MONITOR PATIENT.
--- NOTE | 2019-02-11 12:26 | NUR ---
DR. JACOBSEN AT BEDSIDE: TALKING WITH PATIENT MD WANTING TO KEEP PATIENT OVER NIGHT ICU STATUS. CONTINUE WITH PRIMACOR AND LASIX GTT'S PER DR. JACOBSEN'S PARAMETERS. OTHER ORDERS GIVEN AND TO BE CARRIED OUT. PATIENT TO BE STARTED ON MECH.SOFT 2GM NA+ DIET. CONTINUE CARE.
--- NOTE | 2019-02-11 12:39 | NUR ---
Nutrition Follow-up Notes Wt.: 109.0 kg Pt was on CPAP trial with RT at bedside when rounded this am. per RN pt will be advanced to emch soft diet if extubated. pt was NPO when rounded now noted to advanced to 2 gm na mech soft diet with no PO recorded yet. Est. Needs: 1700 kcal to 2250 kcal (15-20 kcal/kgBW), 70 gms to 113 gms pro (0.8-1.0 gms/kgBW). Will continue to monitor pertinent labs and reassess nutrient need prn Labs: BUN 28 H, CREAT 1.75 H, CA 7.6 L, ALB 2.7 L, GLU 244 H Skin: Carlos scale 11, high risk, skin intact per remotely operated vehicle. GI: Pt has no BM reported per remotely operated vehicle. PES: Obesity r/t excessive PO intake aeb 161% IBW, BMI 37.8 kg/m2 and increased body adiposity Altered nutrition related lab values r/t current/chronic medical condition aeb hypercapnia, elev. renal labs, Trop I, and mod hypoalbuminemia Will continue to monitor PO intake, skin status, pertinent labs and weight trend. F/u in 3-5 days. Rec.: .) If Albumin level continues trending down, consider Prostat 1 pkt BID. 2) Consider renal specific 70 gm protein along with current diet if RFT elev. 3) Refer to RD for further nutrition education and weight monitoring upon discharged. 4.) Continue current plan of care.
--- NOTE | 2019-02-11 13:30 | NUR ---
CALLED DR. JACOBSEN: ORDERS GIVEN MD UPDATED ON PT'S CURRENT STATUS AND PATIENT'S HIGH ANXIETY LEVEL. ORDERS GIVEN FOR PRN XANAX 0.25 MG PO TID. SEE EMAR FOR TIMES GIVEN. CONTINUE CARE.
[2019-02-11] MEDS: FUROSEMIDE INJECTION 500 MG in D5W 5% 450 ML IV SCH (13:31)
[2019-02-11] MEDS ORDERED: ALPRAZolam 0.25 MG TAB PO PRN (13:45)
--- NOTE | 2019-02-11 15:21 | NUR ---
PAGED MARIAMA: PER PATIENT'S REQUEST. PATIENT'S MOOD SEEMS SAD. PATIENT CRIES WHEN TALKING TO ME. PATIENT RE-ORIENTATION TO CURRENT STATUS AND SITUATION. PAGED MARIAMA. WAITING FOR CALL BACK. CONTINUE CARE.
--- NOTE | 2019-02-11 16:39 | NUR ---
WEBBING WEAVER AT BEDSIDE UPDATED WEBBING WEAVER ON PT'S CURRENT STATUS AND SITUATION. WEBBING WEAVER TALKING WITH PATIENT AT BEDSIDE. WILL CONTINUE TO MONITOR.
[2019-02-11] MEDS ORDERED: ALBUTEROL SULF 2.5 MG/0.5ML(0.5%) NEB SOLN NEB SCH (18:00)
--- NOTE | 2019-02-11 20:00 | NUR ---
ADMITTED ON 02/06/2019. CHF EXACERBATION AND GENERAL BODY SWELLING. INTUBATED. EXTUBATED TODAY. 3LNP. PRODUCTIVE COUGH. USING THE YANKAUER TO SUCTION SECRETIONS. ASPIRATION PRECAUTION. ALERT. WEAK MOVEMENTS. POPE. ALL PULSES PALPABLE. LUNGS CLEAR. ABDOMEN SOFT. TAKING FULL LIQUIDS. COUGHS ON WATER. CONTRERAS IN PLACE WITH CLEAR YELLOW LIQUID TO DOWN DRAIN BAG. NO BM. LASIX DRIP 20 MG/HR. MILRINONE 0.375/HR. PLAN: CONTINUE DRIPS UNTIL TOMORROW AND THEN POSSIBLE DOWNGRADE PER DR JACOBSEN. NO SKIN ISSUES. ALL TUBINGS CURRENT. ROSANA TRIPLE LUMEN PICC LINE WITH CURRENT DRESSING AND BIOPATCH. ORIENTED. FOLLOWS COMMANDS. REPOSITIONED TO BACK. 100% V PACED RATE IN THE 90'S.
--- NOTE | 2019-02-11 21:11 | NUR ---
SUCTIONING SELF SAFELY AND IS COUGHING OCCASIONALLY. TAKING ICE CHIPS ON OWN
[2019-02-12] VITALS (46 sets, daily range): BP systolic 77–143; BP diastolic 41–96
--- NOTE | 2019-02-12 | NUR ---
WATCHING TV . WANTS THE LIGHT ON. STATED HE IS AFRAID OF THE DARK. 100% V PACED . BLOOD PRESSURE STABLE. IV SHOWS NO REDNESS OR SWELLING. EATING JELLO. ONE SHEET ON. NO FEVER. EXPLAINED HIS PUMP MEDICATIONS TO HIM. EXPLAINED THE RESTRICTED WATER LIMIT AND WHY.
[2019-02-12] MEDS: IPRATROPIUM BROM 0.5 MG/2.5ML INH SOL NEB SCH ×5 (00:20→22:31)
[2019-02-12] MEDS: ALBUTEROL SULF 2.5 MG/0.5ML(0.5%) NEB SOLN NEB SCH ×5 (00:20→22:31)
--- NOTE | 2019-02-12 02:00 | NUR ---
HAD THE PATIENT MOVE TO HIS SIDE. VSS. WATCHING TV. ICE CHIPS. O2 SATURATION 97%. RR 22. OCCASIONALLY COUGHS .
[2019-02-12] MEDS: PIPERACILLIN-TAZO 4.5GM 100 ML IV SCH ×3 (02:08→18:39)
--- NOTE | 2019-02-12 03:37 | NUR ---
AM LABS DRAWN. PATIENT STILL AWAKE ASKING FOR PIZZA, HOW LONG HE HAS BEEN HERE, WHAT DAY IT IS? REORIENTED. WHISPER OF A VOICE. CONTINUES TO COUGH OCCASIONALLY.
[2019-02-12] MEDS: MILRINONE 20MG/100ML 100 ML IV SCH ×3 (03:45→22:37)
--- NOTE | 2019-02-12 04:00 | NUR ---
VSS. HOB ELEVATED. ATE SOME JELLO. WIDE AWAKE. LUNGS CLEAR. OCCASIONALLY COUGHS AND USES THE YANKAUER TO SUCTION IT. CONTRERAS DRAINING CLEAR YELLOW LIQUID. IV SHOW NO REDNESS OR SWELLING.
[2019-02-12 04:10] LABS: Basophils # (auto) 0.1 uL; Basophils % (auto) 0.6 % (0.0-2.0); Eosinophils # (auto) 0.2 uL; Eosinophils % (auto) 1.6 % (0.0-7.0); Hematocrit 40.2 % (41.0-53.0); Hemoglobin 12.9 g/dL (13.5-17.5); Lymphocytes # (auto) 0.9 uL; Lymphocytes % (auto) 9.1 % (10.0-50.0); Mean Corpuscular Hemoglobin 26.1 pg (28.0-32.0); Mean Corpuscular Volume 81.6 fL (80.0-100.0); Monocytes # (auto) 1.1 uL; Monocytes % (auto) 11.4 % (0.0-12.0); Neutrophils # (auto) 7.4 uL; Neutrophils % (auto) 77.3 % (37.0-80.0); Platelet Count (auto) 189 10^3/uL (140-450); Red Blood Cells 4.92 10^6/uL (4.5-5.90); White Blood Cell 9.6 10^3/uL (4.4-10.8)
[2019-02-12 04:23] LABS: Calcium 8.2 mg/dL (8.5-10.1); Potassium 3.6 mmol/L (3.5-5.1)
[2019-02-12 04:26] LABS: BUN/Creatinine Ratio 15.9
--- NOTE | 2019-02-12 05:30 | NUR ---
LINEN CHANGE. DRINKING CRANBERRY JUICE
--- NOTE | 2019-02-12 06:34 | NUR ---
BEGINNING TO SEE BLOOD IN HIS URINE
[2019-02-12] MEDS: ENOXAPARIN SOD 60 MG/0.6 ML SYRINGE SC SCH ×2 (10:00→22:00)
[2019-02-12] MEDS: POTASSIUM EFFERVESENT TAB 25 MEQ PO SCH ×2 (10:15→22:34)
[2019-02-12] MEDS: ESOMEPRAZOLE 40 MG/5ml VIAL INJ IV SCH (10:15)
[2019-02-12] MEDS: SODIUM CHLOR 0.9% PF (SALINE LOCK) 10ML VIAL/SYR IV SCH ×2 (10:16→22:56)
--- NOTE | 2019-02-12 11:30 | NUR ---
MD Dr. Leiva called per request from charge nurse Yamilex and correspondence section supervisor for downgrade. Spoke to Dr. Leiva regarding downgrade and received new orders, this RN to input into system. Will carry out orders.
--- NOTE | 2019-02-12 12:00 | NUR ---
REPORT Report given to Sushila HARDY by Nando POWER.
[2019-02-12] MEDS: FUROSEMIDE INJECTION 500 MG in D5W 5% 450 ML IV SCH (12:35)
--- NOTE | 2019-02-12 12:50 | NUR ---
TRANSFERRED Transferred patient to room 203 on tapestry box number 37. Patient stable, on Lasix and milrinone in no sign if distress. All belongings placed at bedside.
--- NOTE | 2019-02-12 19:05 | NUR ---
OPEN SHIFT NOTE PATIENT IS ALERT AND ORIENTED X4. ON 3 L O2 NASAL CANNULA. PICC LINE IS INTACT AND PATENT. PATIENT HAS NOT COMPLAINTS OF PAIN AT THIS TIME. POC DISCUSSED AND QUESTIONS ANSWERED. BED IS LOCKED IN LOWEST POSITION WITH SIDE RAILS UP X2 FOR SAFETY. CALL LIGHT IS WITHIN REACH AND PATIENT IS ENCOURAGED TO CALL IF NEEDS ANYTHING. WILL CONTINUE TO ROUND Q1HR AND PRN.
[2019-02-12] MEDS ORDERED: MILRINONE 20MG/100ML 100 ML IV SCH (21:30)
--- NOTE | 2019-02-13 02:00 | NUR ---
CALLED ER TO GET ZOSYN 4.5GM/100ML, NURSE STATED THEY ARE UNABLE TO PULL MEDICATION AT THIS TIME WILL CALL BACK
--- NOTE | 2019-02-13 02:47 | NUR ---
PATIENT COMPLAIN OF FEELING A FUNNY FEELING IN HIS HEART, EKG DONE. DR ANN-MARIE SHEPARD. VITALS ARE WITHIN NORMAL LIMITS BP 109/72 HR IS 91.
[2019-02-13] MEDS ORDERED: PIPERACILLIN-TAZO 4.5GM 100 ML IV ONE (03:26)
[2019-02-13] MEDS: PIPERACILLIN-TAZO 4.5GM 100 ML IV SCH ×3 (03:50→18:19)
[2019-02-13 04:30] VITALS: BP 114/78
--- NOTE | 2019-02-13 04:49 | NUR ---
RECEIVED CALL BACK FROM DR. JACOBSEN NO INTERVENTIONS TO BE DONE AT THIS TIME.
[2019-02-13] MEDS: IPRATROPIUM BROM 0.5 MG/2.5ML INH SOL NEB SCH ×4 (05:59→23:48)
[2019-02-13] MEDS: ALBUTEROL SULF 2.5 MG/0.5ML(0.5%) NEB SOLN NEB SCH ×4 (05:59→23:48)
[2019-02-13] MEDS: MILRINONE 20MG/100ML 100 ML IV SCH ×3 (06:02→21:59)
[2019-02-13 07:59] VITALS: BP 128/52
[2019-02-13] MEDS: SODIUM CHLOR 0.9% PF (SALINE LOCK) 10ML VIAL/SYR IV SCH ×2 (10:08→21:58)
[2019-02-13 10:27] LABS: Potassium 3.2 mmol/L (3.5-5.1)
[2019-02-13 10:31] LABS: BUN/Creatinine Ratio 17.4; Bilirubin, Total 0.6 mg/dL (0.2-1.0); Total Protein 8.1 g/dL (6.4-8.2)
[2019-02-13 10:55] LABS: Albumin 2.4 g/dL (3.4-5.0)
[2019-02-13] MEDS: ESOMEPRAZOLE 40 MG/5ml VIAL INJ IV SCH (10:55)
[2019-02-13] MEDS: ENOXAPARIN SOD 60 MG/0.6 ML SYRINGE SC SCH ×2 (10:55→21:58)
[2019-02-13] MEDS: POTASSIUM EFFERVESENT TAB 25 MEQ PO SCH ×2 (10:55→21:58)
[2019-02-13 12:03] VITALS: BP 113/61
[2019-02-13] MEDS: FUROSEMIDE INJECTION 500 MG in D5W 5% 450 ML IV SCH ×2 (15:15→20:01)
[2019-02-13] MEDS ORDERED: POTASSIUM EFFERVESENT TAB 25 MEQ PO ONE (16:15)
[2019-02-13 16:34] VITALS: BP 117/65
[2019-02-13] MEDS: ACETAMINOPHEN 500 MG TAB PO PRN (19:30)
[2019-02-13 21:30] VITALS: BP 119/72
[2019-02-14] MEDS: PIPERACILLIN-TAZO 4.5GM 100 ML IV SCH ×3 (02:15→18:00)
[2019-02-14 05:00] VITALS: BP 118/75
[2019-02-14] MEDS: IPRATROPIUM BROM 0.5 MG/2.5ML INH SOL NEB SCH ×3 (06:10→19:55)
[2019-02-14] MEDS: ALBUTEROL SULF 2.5 MG/0.5ML(0.5%) NEB SOLN NEB SCH ×3 (06:10→19:55)
[2019-02-14] MEDS: MILRINONE 20MG/100ML 100 ML IV SCH ×3 (06:18→22:56)
[2019-02-14] MEDS ORDERED: SODIUM CHLOR 0.9% PF (SALINE LOCK) 10ML VIAL/SYR IV ONE (08:33)
[2019-02-14 09:00] VITALS: BP 112/72
[2019-02-14] MEDS: POTASSIUM EFFERVESENT TAB 25 MEQ PO SCH ×2 (10:11→21:26)
[2019-02-14] MEDS: ACETAMINOPHEN 500 MG TAB PO PRN ×2 (10:12→21:31)
[2019-02-14] MEDS: ENOXAPARIN SOD 60 MG/0.6 ML SYRINGE SC SCH ×2 (10:12→21:27)
[2019-02-14] MEDS: ESOMEPRAZOLE 40 MG/5ml VIAL INJ IV SCH (10:12)
[2019-02-14] MEDS: SODIUM CHLOR 0.9% PF (SALINE LOCK) 10ML VIAL/SYR IV SCH ×2 (10:12→21:38)
--- NOTE | 2019-02-14 11:00 | NUR ---
WOUND CARE NOTE: PATIENT IS BEING MONITORED FOR SKIN INTEGRITY BY WOUND CARE TEAM. SINCE LAST VISIT, PATIENT HAS BEEN EXTUBATED, TRANSFERRED TO TELE FLOOR. PATIENT IS AWAKE, ALERT, ORIENTED X 4. PATIENT IS ABLE TO SELF TURN/REPOSITION SELF IN BED. HE CONTINUES TO BE WOUND FREE AT THIS TIME. UPDATED SKIN/WOUND CARE PLAN FOR LOW INGA OF 17. NO FURTHER WOUND CARE MONITORING NEEDED AT THIS TIME.
[2019-02-14 13:00] VITALS: BP 99/54
--- NOTE | 2019-02-14 15:27 | NUR ---
Nutrition Follow-up Notes Wt.: 110.2 kg today. Pt's on oxygen via nasal cannula, denies any discomfort except for sore throat related to extubation, per pt during rounds this morning. 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 Pt's usually has good appetite, eat meals regularly, NKFA and not into any special diets pharmacy resource tech. Pt's currently on Mechanical Soft Cardiac:2 gms Na diet with with inadequate PO intake aeb 50% ave. consumed meals (x6) in last 2.5 days. Encouraged to increase food intake through small frequent meals as tolerated. Provide verbal and written nutrition educ. re: current prescribed therapeutic diet and he verbalized understanding. Est. Needs: 1700 kcal to 2250 kcal (15-20 kcal/kgBW), 70 gms to 113 gms pro (0.8-1.0 gms/kgBW). Will continue to monitor pertinent labs and reassess nutrient need prn Labs: No new labs today; 02/13/19 Gluc 168 H, CO2 33 H, K 3.2 L, BUN 28 H, Cr 1.61 H, Alb 2.4 L Skin: Carlos scale 17, mod risk, skin intact per structural ironworker. GI: Pt had 1 BM this morning per structural ironworker. PES: Obesity r/t excessive PO intake aeb 161% IBW, BMI 37.8 kg/m2 and increased body adiposity Altered nutrition related lab values r/t current/chronic medical condition aeb hypercapnia, elev. renal labs, Trop I, and mod hypoalbuminemia Will continue to monitor PO intake, skin status, pertinent labs and weight trend. F/u in 3 to 5 days. Rec.: 1.) Continue close supervision during meals. 2.) If Albumin level continues trending down with improved renal labs, consider Prostat 1 pkt BID. 3.) If gluc level remains consistently elev. with renal labs continue trending up, consider Mechanical Soft Consistent Std. Carb: 60 gms/meal, Renal Specific 70 gm protein in addition to current therapeutic diet. 4.) Refer to CDE/RD for further nutrition education and weight monitoring upon discharged. 5.) Continue current plan of care.
[2019-02-14 16:46] LABS: Hemoglobin 12.6 g/dL (13.5-17.5); Neutrophils # (auto) 4.2 uL; Red Cell Distribution Width 18.3 % (11.8-14.3)
[2019-02-14 16:48] LABS: Basophils # (auto) 0.1 uL; Basophils % (auto) 1.2 % (0.0-2.0); Eosinophils # (auto) 0.4 uL; Eosinophils % (auto) 6.4 % (0.0-7.0); Hematocrit 39.5 % (41.0-53.0); Lymphocytes # (auto) 0.8 uL; Mean Corpuscular Hemoglobin 26.1 pg (28.0-32.0); Mean Corpuscular Volume 81.4 fL (80.0-100.0); Monocytes # (auto) 0.9 uL; Monocytes % (auto) 13.7 % (0.0-12.0); Neutrophils % (auto) 65.7 % (37.0-80.0); Platelet Count (auto) 212 10^3/uL (140-450); Red Blood Cells 4.85 10^6/uL (4.5-5.90); White Blood Cell 6.3 10^3/uL (4.4-10.8)
[2019-02-14 16:57] LABS: Albumin 2.3 g/dL (3.4-5.0); Calcium 8.5 mg/dL (8.5-10.1); Potassium 3.2 mmol/L (3.5-5.1)
[2019-02-14 17:00] VITALS: BP 113/78
[2019-02-14 17:00] LABS: BUN/Creatinine Ratio 16.9; Bilirubin, Total 0.4 mg/dL (0.2-1.0); Total Protein 7.3 g/dL (6.4-8.2)
--- NOTE | 2019-02-14 18:00 | NUR ---
paged MD Leiva aware of patient's status including abnormal labs. New orders received for 60 mEq Klor con po once. Will medicate as ordered and cont care
--- NOTE | 2019-02-14 19:20 | NUR ---
Patient care endorsed endorsed care to Keily castaneda. Patient sitting up in bed in no acute distress or sob noted. Call light within reach. Pt continued on ordered drips. PICC noted patent and intact.
--- NOTE | 2019-02-14 19:30 | NUR ---
Opening Shift Note Assumed care of patient, awake and A&O X4 sitting in bed comfortably. No S/S of distress/SOB or pain. Instructed on POC and to call for assist PRN, will continue to monitor for changes Q1hr and PRN.
[2019-02-14] MEDS ORDERED: POTASSIUM CHL 20 Meq TABLET PO ONE (19:45)
--- NOTE | 2019-02-14 20:15 | NUR ---
Dr. Leiva was paged regarding that the patient had a one time order for 60 mEq potassium and scheduled at 2200 50 mEq potassium. The patient's current potassium level is 3.2. Will wait for MD to call back.
[2019-02-14 21:30] VITALS: BP 120/83
[2019-02-14] MEDS: FUROSEMIDE INJECTION 500 MG in D5W 5% 450 ML IV SCH (21:37)
--- NOTE | 2019-02-14 21:57 | NUR ---
Call back received from MD Dr. Leiva instructed to give both as ordered. Will carry out.
--- NOTE | 2019-02-15 00:04 | NUR ---
PT REFUSED MED NEB TX AT THIS TIME. PT DENIES ANY RESPIRATORY DISTRESS. NO SIGNS OF SHORTNESS OF BREATH. WILL CONTINUE WITH NEXT SCHEDULED TX.
[2019-02-15] MEDS: PIPERACILLIN-TAZO 4.5GM 100 ML IV SCH ×2 (02:34→10:00)
[2019-02-15 05:00] VITALS: BP 115/67
--- NOTE | 2019-02-15 05:00 | NUR ---
PICC Line Dressing Changes PICC line dressing change done with a sterile technique. Cleansed with chloraprep scrub/betadine. Stat lock, and bio-patch as available. Occlusive dressing applied. Changed claves weekly and post lab draw. Patient tolerated well.
--- NOTE | 2019-02-15 05:30 | NUR ---
PICC LUMEN HAS HIGH RESISTANCE UNABLE TO FINISH DOSE OF ZOSYN. PATIENT DID NOT WANT PERIPHERAL IV BECAUSE HE STATED HE IS A "HARD STICK". WILL ENDORSE TO DAY SHIFT. THE OTHER 2 LUMENS ARE RUNNING OTHER DRIPS ORDERED.
[2019-02-15] MEDS: IPRATROPIUM BROM 0.5 MG/2.5ML INH SOL NEB SCH ×5 (05:46→23:48)
[2019-02-15] MEDS: ALBUTEROL SULF 2.5 MG/0.5ML(0.5%) NEB SOLN NEB SCH ×5 (05:46→23:48)
[2019-02-15 07:08] VITALS: BP 115/67
--- NOTE | 2019-02-15 07:20 | NUR ---
CLOSING NOTE PATIENT CARE ENDORSED TO DAY SHIFT NURSE. PATIENT SITTING IN BED COMFORTABLY, NO S/S OF SOB OR DISTRESS NOTED.
--- NOTE | 2019-02-15 07:50 | NUR ---
Patient in bed, asleep, on O2 at 3 LPM. No acute distress noted.
[2019-02-15 08:19] VITALS: BP 109/76
[2019-02-15] MEDS: MILRINONE 20MG/100ML 100 ML IV SCH ×2 (08:27→15:57)
--- NOTE | 2019-02-15 08:30 | NUR ---
Patient has weakness noted on both hands. Assisted the patient to slice the toast with syrup in pieces. Patient able to eat by himself.
--- NOTE | 2019-02-15 09:55 | NUR ---
Paged the PICC Line RN.
[2019-02-15] MEDS: POTASSIUM EFFERVESENT TAB 25 MEQ PO SCH ×2 (10:15→21:38)
[2019-02-15] MEDS: ENOXAPARIN SOD 60 MG/0.6 ML SYRINGE SC SCH ×2 (10:15→21:39)
[2019-02-15] MEDS: ESOMEPRAZOLE 40 MG/5ml VIAL INJ IV SCH (10:15)
[2019-02-15] MEDS: SODIUM CHLOR 0.9% PF (SALINE LOCK) 10ML VIAL/SYR IV SCH ×2 (10:16→21:42)
--- NOTE | 2019-02-15 11:19 | NUR ---
Dr. Leiva at bedside.
[2019-02-15] MEDS: FUROSEMIDE INJECTION 500 MG in D5W 5% 450 ML IV SCH (12:12)
[2019-02-15] MEDS: AMIODARONE HCL 200 MG TAB PO SCH (12:27)
[2019-02-15 12:28] LABS: BUN/Creatinine Ratio 15.2; Potassium 4.5 mmol/L (3.5-5.1)
[2019-02-15 12:30] VITALS: BP 110/58
[2019-02-15 14:43] LABS: INR 1.17 (0.9-1.15); Partial Thromboplastin Time 33.6 sec (23.64-32.05); Prothrombin Time 12.5 sec (9.06-12.60)
[2019-02-15] MEDS ORDERED: WARFARIN SODIUM 2 MG TAB PO ONE (15:30)
[2019-02-15 17:14] VITALS: BP 131/73
[2019-02-15] MEDS: metFORMIN HYDROCHLORIDE 500 MG TAB PO SCH (18:01)
--- NOTE | 2019-02-15 19:15 | NUR ---
RECEIVED PATIENT LYING IN BED, AWAKE, ALERT, ORIENTED X4. NO S/S OF RESPIRATORY DISTRESS, DENIES SOB AND CHEST PAIN. ORIENTED ON PLAN OF CARE. BED IS LOCKED AND IN LOWEST LEVEL, SIDE RAILS UP X2, BED ALARM ON, CALL LIGHT WITHIN REACH. WILL CONTINUE TO MONITOR
[2019-02-15] MEDS: ACETAMINOPHEN 500 MG TAB PO PRN (20:08)
[2019-02-15 21:30] VITALS: BP 110/61
--- NOTE | 2019-02-15 23:49 | NUR ---
PT REFUSED SCHEDULED MED NEB TX AT THIS TIME. PT WANTS TO SLEEP, NO DISTRESS NOTED. PT ON 3LPM NC SPO2 96%, HR 78, RR 18. PT NOTIFIED TO HAVE RT PAGED IF SOB OCCURS.
[2019-02-16] MEDS: MILRINONE 20MG/100ML 100 ML IV SCH ×2 (00:24→08:05)
[2019-02-16 05:00] VITALS: BP 117/57
--- NOTE | 2019-02-16 05:50 | NUR ---
RT NOTE: PT REFUSED TX AT THIS TIME. NO SIGNS OF RESPIRATORY DISTRESS NOTED. LUNG SOUNDS CLEAR/DIMINISHED T/O. ON RA SPO2 92 HR 78 RR 18. PT AWARE THAT I WILL RETURN FOR NEXT SCHEDULED TX. WILL CONTINUE TO MONITOR.
[2019-02-16] MEDS: IPRATROPIUM BROM 0.5 MG/2.5ML INH SOL NEB SCH ×2 (05:53→12:40)
[2019-02-16] MEDS: ALBUTEROL SULF 2.5 MG/0.5ML(0.5%) NEB SOLN NEB SCH ×2 (05:53→12:40)
[2019-02-16] MEDS: metFORMIN HYDROCHLORIDE 500 MG TAB PO SCH (06:27)
--- NOTE | 2019-02-16 07:20 | NUR ---
PATIENT IS AWAKE, ALERT ORIENTED X4. NO S/S OF DISTRESS. CARE ENDORSED TO AM SHIFT RN
--- NOTE | 2019-02-16 07:20 | NUR ---
Opening Shift Note RECEIVED REPORT FROM NOC RN. Assumed care of patient, awake and alert. PATIENT ON OXYGEN AT 3 LPM VIA NASAL CANNULA WITH no S/S of distress/SOB or pain. BED IN LOWEST, LOCKED POSITION WITH SIDERAILS UP x2. Instructed on POC and to call for assist PRN, will continue to monitor for changes Q1hr and PRN.
--- NOTE | 2019-02-16 07:45 | NUR ---
Patient in bed awake, oriented x4. On O2 at 3 LPM. No acute distress noted.
--- NOTE | 2019-02-16 08:02 | NUR ---
Unhooked the patient from the Lasix and Milrinone drip to go to the bathroom. Patient able to ambulate to the bathroom using a walker.
[2019-02-16 08:36] VITALS: BP 123/69
[2019-02-16 08:39] VITALS: BP 118/74
[2019-02-16] MEDS: POTASSIUM EFFERVESENT TAB 25 MEQ PO SCH (09:50)
[2019-02-16] MEDS: ESOMEPRAZOLE 40 MG/5ml VIAL INJ IV SCH (09:51)
[2019-02-16] MEDS: ENOXAPARIN SOD 60 MG/0.6 ML SYRINGE SC SCH (09:54)
[2019-02-16] MEDS: AMIODARONE HCL 200 MG TAB PO SCH (09:55)
[2019-02-16] MEDS ORDERED: SACUBITRIL-VALSARTAN 24mg/26mg TAB PO SCH (10:00)
[2019-02-16] MEDS ORDERED: WARFARIN SODIUM 2 MG TAB PO SCH (10:00)
[2019-02-16] MEDS ORDERED: DIGOXIN 0.125 MG TAB PO SCH (10:00)
[2019-02-16] MEDS: SODIUM CHLOR 0.9% PF (SALINE LOCK) 10ML VIAL/SYR IV SCH (10:09)
[2019-02-16] MEDS: FUROSEMIDE INJECTION 500 MG in D5W 5% 450 ML IV SCH (11:28)
[2019-02-16 11:49] LABS: Albumin 2.5 g/dL (3.4-5.0); Calcium 9.4 mg/dL (8.5-10.1); Potassium 4.4 mmol/L (3.5-5.1)
[2019-02-16 11:50] LABS: INR 1.12 (0.9-1.15); Partial Thromboplastin Time 35.2 sec (23.64-32.05)
[2019-02-16 11:53] LABS: BUN/Creatinine Ratio 16.1; Bilirubin, Total 0.3 mg/dL (0.2-1.0); Total Protein 7.8 g/dL (6.4-8.2)
--- NOTE | 2019-02-16 12:07 | NUR ---
Patient signed IM-patient verbalized understanding of his Medicare rights.
[2019-02-16] MEDS: ACETAMINOPHEN 500 MG TAB PO PRN (12:09)
--- NOTE | 2019-02-16 12:09 | NUR ---
Patient stated he has headache. Tylenol PO given for headache.
--- NOTE | 2019-02-16 12:36 | NUR ---
Dr. Leiva ordered to discharge the patient, increase the Lasix to 80 mg PO at home, keep the PICC Line, discontinue the Amaro catheter, ordered Home Health with [facility].
--- NOTE | 2019-02-16 12:40 | NUR ---
RT NOTE: PT REFUSED TX AT THIS TIME. NO SIGNS OF RESPIRATORY DISTRESS. LUNG SOUNDS CLEAR DIMINISHED T/O. ON 2L NC SPO2 94 HR 78 RR 18. WILL CONTINUE TO MONITOR.
[2019-02-16 13:00] VITALS: BP 95/67
--- NOTE | 2019-02-16 13:00 | NUR ---
Amaro catheter dc'd Order to discontinue Amaro catheter. Amaro dc'd with clean technique following deflation of balloon. Patient tolerated well with no complaints of pain. Continue care.
--- NOTE | 2019-02-16 14:58 | NUR ---
Paged Watch Crystal Cutter Bren.
--- NOTE | 2019-02-16 14:59 | NUR ---
Called Staff Appraiser Carin.
--- NOTE | 2019-02-16 15:10 | NUR ---
Travel Occupational Therapist Carin made aware patient has a General Lot Attendant Consult for home health with [facility]. Taxi voucher provided.
[2019-02-16 15:12] VITALS: BP 95/67
[2019-02-16 15:25] VITALS: BP 95/67
--- NOTE | 2019-02-16 15:30 | NUR ---
Called [facility] [employer]. Fly Rail Operator to come over in 20 minutes or less.
--- NOTE | 2019-02-16 16:00 | NUR ---
Regular Discharge Please follow up with your primary care physician DR. JACOBSEN Your appointment is on FEBRUARY 24, 2019 at 11:10 AM. Phone number is: [phone] Address is: [address], [place] [address] PATIENT AND BELONGINGS TAKEN VIA WHEELCHAIR TO [employer]. ALL QUESTIONS ANSWERED PRIOR TO DISCHARGE.
--- NOTE | 2019-02-16 16:10 | NUR ---
Discharge instructions given as ordered. Encourage to follow up with PMD as instructed. All questions and concerns addressed. Patient verbalized understanding. Medication reconciliation form completed and copy given to patient. Telemetry unit returned to [facility]. Patient taken to vehicle/[employer] via wheelchair with all personal belongings, accompanied by staff. No distress noted at time of departure. Patient discharged with PICC Line as ordered. No acute distress noted at time of departure.
== END 2019-02-16 16:10 | disposition home health service (06) | DRG 207 ==
LOC: ER 04:09 → EDBD 04:09 → TELE 15:12 → ICU WEST 02-07 06:45 → TELE-CENTR 02-12 14:34
PROVIDERS: ADMIT Internal Medicine Cardiovascular Disease; ATTEND Internal Medicine Cardiovascular Disease
PROC: 5A1955Z Respiratory Ventilation, Greater than 96 Consecutive Hours (ICD-10-PCS; principal; 2019-02-06)
PROC: 0BH17EZ Insertion of Endotracheal Airway into Trachea, Via Natural or Artificial Opening (ICD-10-PCS; 2019-02-06)
PROC: 02HV33Z Insertion of Infusion Device into Superior Vena Cava, Percutaneous Approach (ICD-10-PCS; 2019-02-06)
DX: J96.02 Acute respiratory failure with hypercapnia (principal); I50.23 Acute on chronic systolic (congestive) heart failure; I13.0 Hypertensive heart and chronic kidney disease with heart failure and stage 1 through stage 4 chronic kidney disease, or unspecified chronic kidney disease; I31.3 Pericardial effusion (noninflammatory); I42.0 Dilated cardiomyopathy; N18.3 Chronic kidney disease, stage 3 (moderate); G47.30 Sleep apnea, unspecified; Z88.8 Allergy status to other drugs, medicaments and biological substances; Z91.012 Allergy to eggs; Z79.01 Long term (current) use of anticoagulants; I25.2 Old myocardial infarction; Z95.810 Presence of automatic (implantable) cardiac defibrillator
CPT/HCPCS: 31500; 36415; 36569; 36600; 51702; 70450; 71045; 80048; 80053; 81001; 82805; 82962; 83605; 83735; 83880; 84443; 84484; 85025; 85379; 85610; 85730; 87040; 87070; 87081; 87205; 93005; 93306; 94002; 94003; 94640; 94761; 96372; 96374; 96375; 96376; 97163; 99291; G0378; J0696; J2250; J2543; J2704

== ENCOUNTER → 2019-02-19 | Outpatient (CLI) | payer MEDICARE, MEDICAID ==
[~2019-02-19] VITALS: Ht 165.1 cm; Wt 110.2 kg
[~2019-02-19] MED LIST changes: +ALBUTEROL SULF 2.5 MG/0.5ML(0.5%) NEB SOLN NEB ONE; +ALBUTEROL SULF 2.5 MG/0.5ML(0.5%) NEB SOLN ONE; +CYANOCOBALAMIN (B-12) 1000 MCG/1 ML VIAL IM ONE; +CYANOCOBALAMIN (B-12) 1000 MCG/1 ML VIAL ONE; +FUROSEMIDE 20 MG/2 ML VIAL IV ONE; +FUROSEMIDE 20 MG/2 ML VIAL ONE; +FUROSEMIDE 40 MG/4 ML VIAL ONE; +MILRINONE 20MG/100ML 100 ML IV ONE; +MILRINONE 20MG/100ML 100 ML IV SCH; +POTASSIUM CHL 20 Meq TABLET PO ONE
[2019-02-19 11:51] LABS: Basophils # (auto) 0 uL; Eosinophils # (auto) 0.1 uL; Neutrophils # (auto) 3.8 uL
[2019-02-19 11:53] LABS: Basophils % (auto) 0.7 % (0.0-2.0); Eosinophils % (auto) 1.6 % (0.0-7.0); Hematocrit 41.6 % (41.0-53.0); Hemoglobin 13.8 g/dL (13.5-17.5); Lymphocytes % (auto) 16.8 % (10.0-50.0); Mean Corpuscular Hemoglobin 26.7 pg (28.0-32.0); Mean Corpuscular Hgb Conc. 33.2 g/dL (32.0-36.0); Mean Corpuscular Volume 80.5 fL (80.0-100.0); Monocytes # (auto) 0.9 uL; Neutrophils % (auto) 65.9 % (37.0-80.0); Platelet Count (auto) 276 10^3/uL (140-450); Red Blood Cells 5.16 10^6/uL (4.5-5.90); Red Cell Distribution Width 19.1 % (11.8-14.3); White Blood Cell 5.7 10^3/uL (4.4-10.8)
[2019-02-19 12:02] LABS: Albumin 2.7 g/dL (3.4-5.0); Calcium 8.9 mg/dL (8.5-10.1); Magnesium 2.5 mg/dL (1.6-2.6); Potassium 3.8 mmol/L (3.5-5.1)
[2019-02-19 12:05] LABS: BUN/Creatinine Ratio 18.9; Bilirubin, Total 0.3 mg/dL (0.2-1.0); Total Protein 7.5 g/dL (6.4-8.2)
[2019-02-19 15:30] VITALS: BP 111/73
--- NOTE | 2019-02-19 15:30 | NUR ---
in to clinic at 10 am S/P HOSPITALIZATION. ALERT AND WITHOUT DISTRESS. VOICE HOARSE BUT UNDERSTANDABLE. APPROPRIATE AND INTACT THOUGHT PROCESS REGARDING HOME HEALTH, MEDICATION AND NEED FOR ONGOING IV INFUSION THERAPY. TRIPLE LUMEN PICC TO RIGHT ARM. DRESSING TAPED OVER WITH PLASTIC TAPE AND TAPE APPEARS SOILED, AND NOT INCOMPLETELY INTACT, ALTHOUGH LABEL NOTED THAT DRESSING CHANGED ON 02/15/19. CLINIC PROVIDER CONSULTED AND ORDERS RECIEVED. RIGHT ARM PICC LINE ACCESSED AND LABS DRAWN AND SENT. ADMINISTERED NEBULIZER FOR DYSPNEA, NOTED WITH EXTENDED CONVERSATION. RELIEF OF DYSPNEA WITH COMPLETION OF NEBULIZED TREATMENT. IV THERAPY ADMINISTERED PER ORDER. IV LASIX X 2 DOSES ADMINISTERED DURING TOTAL INFUSION ALONG WITH 2 DOSES OF PO POTASSIUM. VIT B12 ADMINISTERED FOR FATIGUE. TOLERATED INFUSION THERAPY WELL. UP TO VOID MULTIPLE TIMES. AFFECT COOPERATIVE AND APPROPRIATE DURING COURSE. DISCHARGED TO SELF CARE WITH [facility] FOR TRANSPORTAION IN NO DISTRESS OR DISCOMFORT AT TIME OF DISCHARGE. SEE FREQUENT VITALS. WNL DURING TREATMENT. RETURN TO CLINIC FRIDAY AT 10 AM FOR REEVALUATION. MEDICATION ADMINISTRATION MILRINONE GTT AT 0.375 MCG/KG/MIN START AT 1013/STOP AT 1450 (12.53 ML/HR) LASIX 60 MG IVP AT 1005 LASIX 60 IVP AT 1450 KDUR 40 MEQ PO AT 1015 KDUR 40 MEQ PO AT 1520 VIT B12 1000 MCG IM AT 1015 TO LEFT DELTOID ALBUTEROL MED NEB AT 1003 HEPARIN 150 UNITS IVP X 3 PORTS AT 1520 PICC LINE DRESSING CHANGE TO RIGHT ARM PER PROTOCOL
== END | disposition home or self-care (01) ==
LOC: CHF HDHVI 09:47
PROVIDERS: ATTEND Internal Medicine Cardiovascular Disease
DX: I63.9 Cerebral infarction, unspecified (principal); I25.10 Atherosclerotic heart disease of native coronary artery without angina pectoris; I13.0 Hypertensive heart and chronic kidney disease with heart failure and stage 1 through stage 4 chronic kidney disease, or unspecified chronic kidney disease; E11.22 Type 2 diabetes mellitus with diabetic chronic kidney disease; N18.3 Chronic kidney disease, stage 3 (moderate); I50.42 Chronic combined systolic (congestive) and diastolic (congestive) heart failure; I25.2 Old myocardial infarction; I48.0 Paroxysmal atrial fibrillation; I42.9 Cardiomyopathy, unspecified; E83.40 Disorders of magnesium metabolism, unspecified; D64.9 Anemia, unspecified; E78.5 Hyperlipidemia, unspecified; F41.9 Anxiety disorder, unspecified; Z79.01 Long term (current) use of anticoagulants; Z79.899 Other long term (current) drug therapy; Z95.810 Presence of automatic (implantable) cardiac defibrillator
CPT/HCPCS: 36415; 80053; 83735; 83880; 85025; 94640; 96365; 96366; 96372; 96375; 96376; G0463; J1642; J1940; J2260; J3420; J7611

== ENCOUNTER → 2019-02-22 | Outpatient (CLI) | payer MEDICARE, MEDICAID ==
[~2019-02-22] VITALS: Ht 165.1 cm; Wt 111.6 kg
[~2019-02-22] MED LIST changes: -ALBUTEROL SULF 2.5 MG/0.5ML(0.5%) NEB SOLN NEB ONE; -ALBUTEROL SULF 2.5 MG/0.5ML(0.5%) NEB SOLN ONE; -CYANOCOBALAMIN (B-12) 1000 MCG/1 ML VIAL IM ONE; -CYANOCOBALAMIN (B-12) 1000 MCG/1 ML VIAL ONE; +FUROSEMIDE 100 MG/10ML VIAL IV ONE; -FUROSEMIDE 20 MG/2 ML VIAL IV ONE
--- NOTE | 2019-02-22 10:10 | NUR ---
IN FOR SCHEDULED INFUSION AFTER HOSPITAL ADMISSION. INITIALLY VERY WINDED AND DYSPNEIC. ASSISTED TO RECLINER CHAIR.
--- NOTE | 2019-02-22 10:10 | NUR ---
Clinic Provider Clinic Provider into see pt with new orders received and carried out. RESPIRATIONS EVEN AND NON LABORED. ACCESS RIGHT ARM PICC LINE AND ADMINISTER LASIX PER ORDER.
--- NOTE | 2019-02-22 11:11 | NUR ---
UP TO VOID MULTIPLE TIMES AFTER DOSE OF IV LASIX.
[2019-02-22 11:20] LABS: BUN/Creatinine Ratio 12.9; Calcium 8.4 mg/dL (8.5-10.1); Magnesium 2.2 mg/dL (1.6-2.6); Potassium 4.2 mmol/L (3.5-5.1)
[2019-02-22 16:30] VITALS: BP 131/85
--- NOTE | 2019-02-22 16:30 | NUR ---
CHF INFUSION AND THERAPY COMPLETED . EDUCATION GIVEN ON SALT INTAKE AND FLUID RETENTION. EDUCATION ON MEDICATION MANAGEMENT. REPEAT BACK INSTRUCTIONS OBTAINED. Discharge Instructions See e-MAR for any mediations given with this visit. Patient education given on disease process. Patient verbalized understanding. Previous labs reviewed. Patient discharged in stable condition with after care instructions and follow up appointment FOR Friday02/24/19 MEDICATION ADMINISTRATION MILRINONE GTT AT 0.375MCG/KG/MIN 12.62 ML/HR START AT 1023/STOP AT 1605 LASIX 60 MG IVP AT 1010 K-DUR 40 MEQ PO AT 1025 HEPARIN 150 UNITS IVP X 3 AT 1605
--- NOTE | 2019-02-24 10:26 | NUR ---
START MILRINONE GTT AT 0.375 MCG/KG/MIN
== END | disposition home or self-care (01) ==
LOC: CHF HDHVI 09:55
PROVIDERS: ATTEND Internal Medicine Cardiovascular Disease
DX: I13.0 Hypertensive heart and chronic kidney disease with heart failure and stage 1 through stage 4 chronic kidney disease, or unspecified chronic kidney disease (principal); E11.22 Type 2 diabetes mellitus with diabetic chronic kidney disease; N18.3 Chronic kidney disease, stage 3 (moderate); I50.42 Chronic combined systolic (congestive) and diastolic (congestive) heart failure; E83.40 Disorders of magnesium metabolism, unspecified; I25.2 Old myocardial infarction; I48.0 Paroxysmal atrial fibrillation; I42.0 Dilated cardiomyopathy; I25.10 Atherosclerotic heart disease of native coronary artery without angina pectoris; I42.9 Cardiomyopathy, unspecified; F41.9 Anxiety disorder, unspecified; E78.5 Hyperlipidemia, unspecified; E66.01 Morbid (severe) obesity due to excess calories; Z68.41 Body mass index [BMI] 40.0-44.9, adult; Z79.01 Long term (current) use of anticoagulants; Z95.810 Presence of automatic (implantable) cardiac defibrillator; Z86.73 Personal history of transient ischemic attack (TIA), and cerebral infarction without residual deficits
CPT/HCPCS: 36415; 80048; 83735; 83880; 96365; 96366; 96375; G0463; J1642; J1940; J2260

== ENCOUNTER 2019-02-27 11:46 | Emergency (ER) | payer MEDICARE, MEDICAID ==
[~2019-02-27] VITALS: Ht 172.7 cm; Wt 110.2 kg
[~2019-02-27 11:46] MED LIST changes: -FUROSEMIDE 100 MG/10ML VIAL IV ONE; -FUROSEMIDE 20 MG/2 ML VIAL ONE; -FUROSEMIDE 40 MG/4 ML VIAL ONE; -MILRINONE 20MG/100ML 100 ML IV ONE; -MILRINONE 20MG/100ML 100 ML IV SCH; -POTASSIUM CHL 20 Meq TABLET PO ONE
[2019-02-27] MEDS ORDERED: traMADol HCL 50 MG TAB PO ONE (13:45)
[2019-02-27 16:33] VITALS: BP 145/96
== END 2019-02-27 16:39 | disposition home or self-care (01) ==
LOC: ER 11:46
DX: S99.812A Other specified injuries of left ankle, initial encounter (principal); I48.91 Unspecified atrial fibrillation; E78.5 Hyperlipidemia, unspecified; I11.0 Hypertensive heart disease with heart failure; I50.9 Heart failure, unspecified; I25.2 Old myocardial infarction; Z95.0 Presence of cardiac pacemaker; Z88.8 Allergy status to other drugs, medicaments and biological substances; Z79.01 Long term (current) use of anticoagulants; Z79.899 Other long term (current) drug therapy; Z86.73 Personal history of transient ischemic attack (TIA), and cerebral infarction without residual deficits; W18.39XA Other fall on same level, initial encounter; Y93.89 Activity, other specified; Y99.8 Other external cause status; Y92.89 Other specified places as the place of occurrence of the external cause
CPT/HCPCS: 29515; 73610

== ENCOUNTER → 2019-03-02 | Outpatient (CLI) | payer MEDICARE, MEDICAID ==
[~2019-03-02] MED LIST changes: +ACETAMINOPHEN 500 MG TAB PO ONE; +FUROSEMIDE 20 MG/2 ML VIAL IV ONE; +FUROSEMIDE 20 MG/2 ML VIAL ONE; +FUROSEMIDE 40 MG/4 ML VIAL ONE; +MILRINONE 20MG/100ML 100 ML IV ONE; +MILRINONE 20MG/100ML 100 ML IV SCH; +POTASSIUM CHL 10 Meq TABLET PO ONE; +POTASSIUM CHL 20 Meq TABLET PO SCH
--- NOTE | 2019-03-02 09:30 | NUR ---
IN TO CLINIC AFTER 2 MISSED APPOINTMENTS. 2 APPOINTMENTS FOR INFUSIONS AND APPOINTMENT FOR DR JACOBSEN POST HOSPITAL FOLLOWUP. DYSPNEA NOTED WITH EXERTION. RESPIRATIONS TACHYPNEIC. STANDING ORDERS FOR INFUSION INSTITUTED. RIGHT ARM PICC LINE ACCESSED AND LABS DRAWN AND SENT.
--- NOTE | 2019-03-02 09:48 | NUR ---
START MILRINONE THERAPY AFTER LASIX GTT. Addendum: 03/02/19 at 1454 by HAYLEY INGRAM AMEND ABOVE NOTE "AFTER LASIX INTRAVENOUS PUSH"
--- NOTE | 2019-03-02 11:00 | NUR ---
UP TO VOID MULTIPLE TIMES. LEFT FOOT IN SOFT CAST WITH SWAPNA WRAP.
--- NOTE | 2019-03-02 12:00 | NUR ---
DOZING , INTERMITTENTLY. RESPIRATIONS EVEN AND NON LABORED NOW.
[2019-03-02 12:14] LABS: Basophils # (auto) 0 uL; Eosinophils # (auto) 0.1 uL; Hematocrit 38.8 % (41.0-53.0); Hemoglobin 12.3 g/dL (13.5-17.5); Lymphocytes # (auto) 0.9 uL; Monocytes # (auto) 0.6 uL
[2019-03-02 12:15] LABS: Potassium 3.6 mmol/L (3.5-5.1)
[2019-03-02 12:16] LABS: Basophils % (auto) 0.4 % (0.0-2.0); Eosinophils % (auto) 1.7 % (0.0-7.0); Mean Corpuscular Hemoglobin 25.7 pg (28.0-32.0); Mean Corpuscular Hgb Conc. 31.6 g/dL (32.0-36.0); Mean Corpuscular Volume 81.1 fL (80.0-100.0); Monocytes % (auto) 9.5 % (0.0-12.0); Neutrophils # (auto) 4.6 uL; Neutrophils % (auto) 74.4 % (37.0-80.0); Nucleated Red Blood Cells % 0.2 %; Platelet Count (auto) 228 10^3/uL (140-450); Red Blood Cells 4.79 10^6/uL (4.5-5.90); Red Cell Distribution Width 20.1 % (11.8-14.3); White Blood Cell 6.2 10^3/uL (4.4-10.8)
[2019-03-02 12:20] LABS: BUN/Creatinine Ratio 13.3; Calcium 8.7 mg/dL (8.5-10.1); Magnesium 2.2 mg/dL (1.6-2.6)
--- NOTE | 2019-03-02 13:30 | NUR ---
RIGHT ARM PICC LINE DRESSING CHANGES. LAST CHANGED ON 02/19/19 HERE IN CLINIC. DRESSING PEELING UP AT EDGES BUT NOT OFF COMPLETELY. DRESSING CHANGED AND TOLERATED WELL.
[2019-03-02 15:45] VITALS: BP 150/95
--- NOTE | 2019-03-02 15:45 | NUR ---
Discharge Instructions See e-MAR for any mediations given with this visit. Patient education given on disease process. Patient verbalized understanding. Previous labs reviewed. Patient discharged in stable condition with after care instructions and follow up appointment. FOR Friday03/05/19 MEDICATION ADMINISTRATION MILRINONE GTT AT 0.375 MCG/KG/MIN START AT 0948/STOP AT 0948 (13.07 ML/HR) LASIX 60 MG IVP AT 0948 LASIX 60 MG IVP AT 1212 POTASSIUM 40 MEQ PO AT 1100 TYLENOL 500 MG PO AT 1241 HEPARIN 150 UNITS IVP X 3 PORTS WITH PICC DRESSING CHANGE Addendum: 04/02/19 at 1425 by ANTONIETTA PECK RN NE AMEND ABOVE NOTE MILRINONE GTT COMPLETED AT 1500
== END | disposition home or self-care (01) ==
LOC: CHF HDHVI 09:41
PROVIDERS: ATTEND Internal Medicine Cardiovascular Disease
DX: I13.0 Hypertensive heart and chronic kidney disease with heart failure and stage 1 through stage 4 chronic kidney disease, or unspecified chronic kidney disease (principal); I50.23 Acute on chronic systolic (congestive) heart failure; I50.32 Chronic diastolic (congestive) heart failure; D64.9 Anemia, unspecified; E83.40 Disorders of magnesium metabolism, unspecified; F41.9 Anxiety disorder, unspecified; I25.10 Atherosclerotic heart disease of native coronary artery without angina pectoris; E78.5 Hyperlipidemia, unspecified; E66.01 Morbid (severe) obesity due to excess calories; I25.2 Old myocardial infarction; I48.0 Paroxysmal atrial fibrillation; E11.22 Type 2 diabetes mellitus with diabetic chronic kidney disease; Z79.01 Long term (current) use of anticoagulants; Z79.899 Other long term (current) drug therapy; Z95.810 Presence of automatic (implantable) cardiac defibrillator; Z86.73 Personal history of transient ischemic attack (TIA), and cerebral infarction without residual deficits
CPT/HCPCS: 36415; 80048; 83735; 83880; 85025; 96365; 96366; 96375; 96376; G0463; J1642; J1940; J2260

== ENCOUNTER → 2019-03-05 | Outpatient (CLI) | payer MEDICARE, MEDICAID ==
[~2019-03-05] MED LIST changes: -ACETAMINOPHEN 500 MG TAB PO ONE; -FUROSEMIDE 40 MG/4 ML VIAL ONE; +FUROSEMIDE INJECTION 10 ML ONE; -MILRINONE 20MG/100ML 100 ML IV SCH; +POTA-220 PO; -POTA20TA53 PO; +POTASSIUM CHL 20 Meq TABLET PO ONE; -POTASSIUM CHL 20 Meq TABLET PO SCH; +WARF2TAB PO; -WARF2TAB55 PO
[2019-03-05 13:19] VITALS: BP 129/90
--- NOTE | 2019-03-05 13:20 | NUR ---
IN TO CLINIC FOR SCHEDULED INFUSION. DYSPNEA UPON EXERTION. USING CRUTCHES TODAY FOR AMBULATION. VS WNL. CLINIC PROVIDER CONSULTED AND NEW ORDERS RECIEVED. MEDICATED WITH LAISX IVP. THEN TO BACK OFFICE FOR SCHEDULED APPOINTMENT WITH DR JACOBSEN. RETURNED FROM APPOINTMENT BACK TO CLINIC. SECOND DOSE OF LASIX ADMINISTERED AFTER BP VERIFIED. PICC LINE FLUSHED AND MAINTAINED PER PROTOCOL. DISCHARGED TO SELF CARE WITHOUT DISCOMFORT. MEDICATION ADMINISTRATION LASIX 60 IVP AT 1100 AND AT 1240 (TOTAL 120 MG IVP DIVIDED IN 2 DOSES) KDUR 40 MEQ PO AT 1110 HEPARIN 150 UNITS IVP X2 TO RIGHT ARM PICC LINE
== END | disposition home or self-care (01) ==
LOC: CHF HDHVI 10:56
PROVIDERS: ATTEND Internal Medicine Cardiovascular Disease
DX: I13.0 Hypertensive heart and chronic kidney disease with heart failure and stage 1 through stage 4 chronic kidney disease, or unspecified chronic kidney disease (principal); E11.22 Type 2 diabetes mellitus with diabetic chronic kidney disease; N18.3 Chronic kidney disease, stage 3 (moderate); I50.42 Chronic combined systolic (congestive) and diastolic (congestive) heart failure; I25.10 Atherosclerotic heart disease of native coronary artery without angina pectoris; E78.5 Hyperlipidemia, unspecified; E66.01 Morbid (severe) obesity due to excess calories; I25.2 Old myocardial infarction; F41.9 Anxiety disorder, unspecified; I48.0 Paroxysmal atrial fibrillation; Z95.810 Presence of automatic (implantable) cardiac defibrillator; Z86.73 Personal history of transient ischemic attack (TIA), and cerebral infarction without residual deficits; Z79.01 Long term (current) use of anticoagulants; Z79.899 Other long term (current) drug therapy
CPT/HCPCS: 96374; 96376; J1642; J1940; 96375

== ENCOUNTER → 2019-03-09 | Outpatient (CLI) | payer MEDICARE, MEDICAID ==
[2019-03-09] VITALS (7 sets, daily range): BP systolic 104–134; BP diastolic 61–87
[~2019-03-09] MED LIST changes: +FUROSEMIDE 100 MG/10ML VIAL IV ONE; +KETOROLAC TROMETH 60MG/2ML VIAL IM ONE; +KETOROLAC TROMETH 60MG/2ML VIAL ONE
--- NOTE | 2019-03-09 10:30 | NUR ---
chf ARRIVED ATHE THE CHF CLINIC FOR THERAPY, CHRISTOPHER AU UPDATED ORDERS RECIEVED AND NOTED
--- NOTE | 2019-03-09 11:35 | NUR ---
Initial PICC Line PICC line assessed before access for ordered medications per MD. Port accessed per protocol flushed with 10 ml 0.9% NS prior to administration of ordered medication. See e-MAR for medications given during this visit.
--- NOTE | 2019-03-09 15:30 | NUR ---
PICC Line meds Medication completed per MD order. See e-MAR for medications given during this visit. Patient tolerated medication well. PICC line flushed per protocol. Dressing chagned PRN via aseptic technique. Patient tolerated procedure well. Patient D/C'd stable with aftercare and follow up instructions per MD.
[2019-03-09 15:59] LABS: Potassium 3.6 mmol/L (3.5-5.1)
--- NOTE | 2019-03-09 16:03 | NUR ---
Discharge Instructions See e-MAR for any mediations given with this visit. Patient education given on disease process. Patient verbalized understanding. Previous labs reviewed. Patient discharged in stable condition with after care instructions and follow up appointment. MEDICATIONS 1055 POTASSIUM 40 MEQ PO X 1 1135 START TIME MILRINONE DRIP 0.375 MCG/KG/MIN 1535 STOP TIME MILRINONE DRIP 1055 LASIX 60 MG IVP X 1 1530 HEPARIN 450 UNITS IVP X 1 1530 TORADOL 60MG IM X 1 1330 LASIX 60MG IVP X 1 1530 POTASSIUM 20 MEQ PO X 1 PT DROPPED 2 POTASSIUM PILLS ON THE FLOOR, CALLED PT AND ADVISED TO TAKE 20 MEQ
== END | disposition home or self-care (01) ==
LOC: CHF HDHVI 10:40
PROVIDERS: ATTEND Internal Medicine Cardiovascular Disease
DX: I13.0 Hypertensive heart and chronic kidney disease with heart failure and stage 1 through stage 4 chronic kidney disease, or unspecified chronic kidney disease (principal); E11.22 Type 2 diabetes mellitus with diabetic chronic kidney disease; I50.23 Acute on chronic systolic (congestive) heart failure; N18.3 Chronic kidney disease, stage 3 (moderate); R94.4 Abnormal results of kidney function studies; E87.6 Hypokalemia; I48.0 Paroxysmal atrial fibrillation; I25.2 Old myocardial infarction; I25.10 Atherosclerotic heart disease of native coronary artery without angina pectoris; E78.5 Hyperlipidemia, unspecified; F41.9 Anxiety disorder, unspecified; E66.01 Morbid (severe) obesity due to excess calories; Z68.41 Body mass index [BMI] 40.0-44.9, adult; Z95.810 Presence of automatic (implantable) cardiac defibrillator; Z79.899 Other long term (current) drug therapy; Z79.01 Long term (current) use of anticoagulants; Z86.73 Personal history of transient ischemic attack (TIA), and cerebral infarction without residual deficits
CPT/HCPCS: 36415; 82565; 83880; 84132; 84520; 96365; 96366; 96372; 96375; 96376; J1642; J1885; J1940; J2260

== ENCOUNTER → 2019-03-12 | Outpatient (CLI) | payer MEDICARE, MEDICAID ==
[~2019-03-12] MED LIST changes: -FUROSEMIDE 20 MG/2 ML VIAL IV ONE; -KETOROLAC TROMETH 60MG/2ML VIAL IM ONE; -KETOROLAC TROMETH 60MG/2ML VIAL ONE; -POTA-220 PO; +POTA20TA53 PO; -WARF2TAB PO; +WARF2TAB55 PO
[2019-03-12 09:53] VITALS: BP 129/91
[2019-03-12 10:10] VITALS: BP 122/76
[2019-03-12 10:30] VITALS: BP 120/64
[2019-03-12 12:30] VITALS: BP 120/73
[2019-03-12 13:00] VITALS: BP_SYST 116; BP_SYST 120; BP_DIAS 87; BP_DIAS 96
[2019-03-12 15:20] VITALS: BP 163/94
--- NOTE | 2019-03-12 15:22 | NUR ---
IN TO CLINIC FOR SCHEDULED INFUSION. DYSPNEIC WITH ACTIVITY. VS WNL. RIGHT ARM PICC LINE USED FOR INFUSION AND SITE BENIGN POST INFUSION. ALL PORTS FLUSHED AND CAPPED POST USE. DRESSING INTACT. UP TO VOID MULTIPLE TIMES. TOLERATED INFUSION WELL. MEDICATION INFUSION MILRINONE GTT AT 0.375MCG/KG/MIN START AT 0953/STOP AT 1415 (13.01 ML/HR) POTASSIUM 40 MEQ PO AT 1205 LASIX 120 MG IN 100 ML IVPB START AT 1415/STOP AT 1515 POTASSIUM 40 MEQ PO AT 1450 HEPARIN 150 UNITS IVP X 3 TO PICC LINE PORTS
== END | disposition home or self-care (01) ==
LOC: CHF HDHVI 09:51
PROVIDERS: ATTEND Internal Medicine Cardiovascular Disease
DX: I13.0 Hypertensive heart and chronic kidney disease with heart failure and stage 1 through stage 4 chronic kidney disease, or unspecified chronic kidney disease (principal); E11.22 Type 2 diabetes mellitus with diabetic chronic kidney disease; I50.42 Chronic combined systolic (congestive) and diastolic (congestive) heart failure; N18.3 Chronic kidney disease, stage 3 (moderate); I25.10 Atherosclerotic heart disease of native coronary artery without angina pectoris; I48.0 Paroxysmal atrial fibrillation; I25.2 Old myocardial infarction; I42.9 Cardiomyopathy, unspecified; E78.5 Hyperlipidemia, unspecified; R06.02 Shortness of breath; F41.9 Anxiety disorder, unspecified; E66.01 Morbid (severe) obesity due to excess calories; Z68.41 Body mass index [BMI] 40.0-44.9, adult; Z95.810 Presence of automatic (implantable) cardiac defibrillator; Z86.73 Personal history of transient ischemic attack (TIA), and cerebral infarction without residual deficits; Z79.01 Long term (current) use of anticoagulants; Z79.899 Other long term (current) drug therapy
CPT/HCPCS: 96365; 96366; 96367; G0463; J1642; J1940; J2260

== ENCOUNTER → 2019-03-16 | Outpatient (CLI) | payer MEDICARE, MEDICAID ==
[~2019-03-16] MED LIST changes: +KETOROLAC TROMETH 60MG/2ML VIAL IM ONE; +KETOROLAC TROMETH 60MG/2ML VIAL ONE
--- NOTE | 2019-03-16 08:30 | NUR ---
CHF PT ARRIVED TO CHF CLINIC FOR WEEKLY THERAPY, A/O X 3 0 DISTRESS. VSS STABLE
[2019-03-16 12:20] LABS: Basophils # (auto) 0 uL; Eosinophils # (auto) 0.1 uL; Monocytes # (auto) 0.6 uL; White Blood Cell 5.5 10^3/uL (4.4-10.8)
[2019-03-16 12:28] LABS: Basophils % (auto) 0.7 % (0.0-2.0); Eosinophils % (auto) 1.3 % (0.0-7.0); Hematocrit 39.3 % (41.0-53.0); Hemoglobin 12.5 g/dL (13.5-17.5); Lymphocytes % (auto) 17.3 % (10.0-50.0); Mean Corpuscular Hemoglobin 25.4 pg (28.0-32.0); Mean Corpuscular Hgb Conc. 31.8 g/dL (32.0-36.0); Mean Corpuscular Volume 79.9 fL (80.0-100.0); Monocytes % (auto) 10.8 % (0.0-12.0); Neutrophils # (auto) 3.9 uL; Neutrophils % (auto) 69.9 % (37.0-80.0); Nucleated Red Blood Cells % 0.3 %; Platelet Count (auto) 226 10^3/uL (140-450); Red Blood Cells 4.92 10^6/uL (4.5-5.90); Red Cell Distribution Width 20.2 % (11.8-14.3)
[2019-03-16 12:55] LABS: Potassium 3.8 mmol/L (3.5-5.1)
[2019-03-16 12:59] LABS: BUN/Creatinine Ratio 23.1; Magnesium 2.4 mg/dL (1.6-2.6)
--- NOTE | 2019-03-16 15:51 | NUR ---
Discharge Instructions See e-MAR for any mediations given with this visit. Patient education given on disease process. Patient verbalized understanding. Previous labs reviewed. Patient discharged in stable condition with after care instructions and follow up appointment. MEDICATIONS 0958 START TIME MILRINONE DRIP 0.375MCG/KG/MIN X 4 HR 1410 STOP TIME MILRINONE DRIP 1005 POTASIUM 40 MEQ PO X 1 1453 POTASSIUM 40 MEQ PO X 1 1500 HEPARIN 150 UNITS X 3 TP PICC LINE PORTS TOTAL 450 UNITS IV 1456 START LASIX 120 MG IVPB 1530 STOP LASIX IVPB 1017 TORADOL 60MG IM X 1
[2019-03-16 16:01] VITALS: BP 117/79
--- NOTE | 2019-03-16 16:50 | NUR ---
PICC Line Dressing Changes PICC line dressing change done with a sterile technique. Cleansed with chloraprep scrub/betadine. Stat lock, and bio-patch as available. Occlusive dressing applied. Changed claves weekly and post lab draw. See e-MAR for medications given during this visit.
== END | disposition home or self-care (01) ==
LOC: CHF HDHVI 08:34
PROVIDERS: ATTEND Internal Medicine Cardiovascular Disease
DX: I13.0 Hypertensive heart and chronic kidney disease with heart failure and stage 1 through stage 4 chronic kidney disease, or unspecified chronic kidney disease (principal); E11.22 Type 2 diabetes mellitus with diabetic chronic kidney disease; I50.42 Chronic combined systolic (congestive) and diastolic (congestive) heart failure; N18.3 Chronic kidney disease, stage 3 (moderate); E83.40 Disorders of magnesium metabolism, unspecified; D64.9 Anemia, unspecified; M79.673 Pain in unspecified foot; I48.0 Paroxysmal atrial fibrillation; I25.2 Old myocardial infarction; G47.30 Sleep apnea, unspecified; F41.9 Anxiety disorder, unspecified; E66.01 Morbid (severe) obesity due to excess calories; E78.5 Hyperlipidemia, unspecified; Z68.41 Body mass index [BMI] 40.0-44.9, adult; Z79.899 Other long term (current) drug therapy; Z95.810 Presence of automatic (implantable) cardiac defibrillator; Z86.73 Personal history of transient ischemic attack (TIA), and cerebral infarction without residual deficits
CPT/HCPCS: 36415; 71046; 80048; 83735; 83880; 85025; 85610; 96365; 96366; 96367; 96372; G0463; J1642; J1885; J1940; J2260

== ENCOUNTER → 2019-03-18 | Outpatient (CLI) | payer MEDICARE, MEDICAID ==
[2019-03-18] VITALS (10 sets, daily range): BP systolic 129–145; BP diastolic 69–97
[~2019-03-18] MED LIST changes: +METOLAZONE 5 MG TAB ONE; +METOLAZONE 5 MG TAB PO ONE; +SODIUM CHLORIDE 0.9% 100 ML IV ONE
--- NOTE | 2019-03-18 09:30 | NUR ---
CHF PT ARRIVED TO THE CHF CLINIC FOR THERAPY. O DISTRESS VS OBTAINED. PAIN NOTED TO LEFT FOOT FROM PAST FALL.
--- NOTE | 2019-03-18 09:40 | NUR ---
Clinic Provider Clinic Provider UPDATED ON PT STATUS new orders received and carried out.
--- NOTE | 2019-03-18 14:40 | NUR ---
Discharge Instructions See e-MAR for any mediations given with this visit. Patient education given on disease process. Patient verbalized understanding. Previous labs reviewed. Patient discharged in stable condition with after care instructions and follow up appointment. MEDICATION 0936 START TIME MILRINONE DRIP 0.375 MCG/KG/MIN 1337 STOP TIME MILRIONONE DRIP 1245 METALOXONE 5 MG PO X 1 0930 POTAAIUM 30 MEQ PO X 1 1319 POTASSIIUM 40 MEQ PO X 1 1044 TORADOL 60 MG IM X 1 LOT #[id number] EXP 03/11 1339 LASIX 120 MG IVPN IN 100 ML NS 1415 LASIX STOP TIME
== END | disposition home or self-care (01) ==
LOC: CHF HDHVI 09:36
PROVIDERS: ATTEND Internal Medicine Cardiovascular Disease
DX: I13.0 Hypertensive heart and chronic kidney disease with heart failure and stage 1 through stage 4 chronic kidney disease, or unspecified chronic kidney disease (principal); N18.3 Chronic kidney disease, stage 3 (moderate); I50.23 Acute on chronic systolic (congestive) heart failure; I50.32 Chronic diastolic (congestive) heart failure; F41.9 Anxiety disorder, unspecified; E78.5 Hyperlipidemia, unspecified; I25.2 Old myocardial infarction; E11.22 Type 2 diabetes mellitus with diabetic chronic kidney disease; I25.10 Atherosclerotic heart disease of native coronary artery without angina pectoris; I48.91 Unspecified atrial fibrillation; Z79.899 Other long term (current) drug therapy; Z95.810 Presence of automatic (implantable) cardiac defibrillator; Z86.73 Personal history of transient ischemic attack (TIA), and cerebral infarction without residual deficits; Z79.01 Long term (current) use of anticoagulants
CPT/HCPCS: 96365; 96366; 96367; 96372; G0463; J1642; J1885; J1940; J2260

== ENCOUNTER → 2019-03-23 | Outpatient (CLI) | payer MEDICARE, MEDICAID ==
[2019-03-23] VITALS (12 sets, daily range): BP systolic 108–148; BP diastolic 64–86
[~2019-03-23] MED LIST changes: -KETOROLAC TROMETH 60MG/2ML VIAL IM ONE; -KETOROLAC TROMETH 60MG/2ML VIAL ONE; +POTA-220 PO; -POTA20TA53 PO; +SODIUM CHLORIDE 0.9% 1,000 ML IV ONE; -SODIUM CHLORIDE 0.9% 100 ML IV ONE; +WARF2TAB PO; -WARF2TAB55 PO
--- NOTE | 2019-03-23 08:13 | NUR ---
CHF PT ARRIVED AT THE CHF CLINIC A/O X 3, WEEKLY THERAPY, V/S OBTAINED
[2019-03-23 12:22] LABS: Basophils # (auto) 0 uL; Eosinophils # (auto) 0.1 uL; Eosinophils % (auto) 1.1 % (0.0-7.0)
[2019-03-23 12:24] LABS: Basophils % (auto) 0.5 % (0.0-2.0); Hematocrit 43.1 % (41.0-53.0); Hemoglobin 13.7 g/dL (13.5-17.5); Lymphocytes # (auto) 0.9 uL; Lymphocytes % (auto) 16.5 % (10.0-50.0); Mean Corpuscular Hemoglobin 25.1 pg (28.0-32.0); Mean Corpuscular Hgb Conc. 31.7 g/dL (32.0-36.0); Monocytes # (auto) 0.5 uL; Neutrophils % (auto) 72.9 % (37.0-80.0); Nucleated Red Blood Cells % 0.1 %; Platelet Count (auto) 252 10^3/uL (140-450); Red Blood Cells 5.45 10^6/uL (4.5-5.90); Red Cell Distribution Width 20.2 % (11.8-14.3); White Blood Cell 5.5 10^3/uL (4.4-10.8)
[2019-03-23 13:11] LABS: Potassium 4.2 mmol/L (3.5-5.1)
[2019-03-23 13:36] LABS: BUN/Creatinine Ratio 17.3; Calcium 8.9 mg/dL (8.5-10.1); Magnesium 2.3 mg/dL (1.6-2.6)
--- NOTE | 2019-03-23 14:20 | NUR ---
Discharge Instructions See e-MAR for any mediations given with this visit. Patient education given on disease process. Patient verbalized understanding. Previous labs reviewed. Patient discharged in stable condition with after care instructions and follow up appointment. MEDICATION 0843 START TIME MILRIONONE DRIP 0.375 MCG/KG/MIN X 3 HRS 1143 STOP TIME MILRIONONE DRIP 1139 POTASSIUM 40 MEQ PO X 1 1253 LASIX 120 MG IVP X 1 1139 METALOZONE 5 MG PO X 1 1419 HEPARIN 450 UNITS IVP , 150 TO EACH PICC PORT
== END | disposition home or self-care (01) ==
LOC: CHF HDHVI 08:22
PROVIDERS: ATTEND Internal Medicine Cardiovascular Disease
DX: I13.0 Hypertensive heart and chronic kidney disease with heart failure and stage 1 through stage 4 chronic kidney disease, or unspecified chronic kidney disease (principal); E11.22 Type 2 diabetes mellitus with diabetic chronic kidney disease; I50.23 Acute on chronic systolic (congestive) heart failure; I50.32 Chronic diastolic (congestive) heart failure; N18.3 Chronic kidney disease, stage 3 (moderate); D64.9 Anemia, unspecified; E83.40 Disorders of magnesium metabolism, unspecified; I42.9 Cardiomyopathy, unspecified; F41.9 Anxiety disorder, unspecified; I25.10 Atherosclerotic heart disease of native coronary artery without angina pectoris; E78.5 Hyperlipidemia, unspecified; E66.01 Morbid (severe) obesity due to excess calories; I25.2 Old myocardial infarction; I48.0 Paroxysmal atrial fibrillation; Z95.0 Presence of cardiac pacemaker; Z79.01 Long term (current) use of anticoagulants; Z79.899 Other long term (current) drug therapy; Z95.810 Presence of automatic (implantable) cardiac defibrillator; Z86.73 Personal history of transient ischemic attack (TIA), and cerebral infarction without residual deficits; Z68.41 Body mass index [BMI] 40.0-44.9, adult
CPT/HCPCS: 36415; 80048; 83735; 83880; 85025; 96365; 96366; 96367; G0463; J1642; J1940; J2260; J7030; 96368

== ENCOUNTER → 2019-03-26 | Outpatient (CLI) | payer MEDICARE, MEDICAID ==
[~2019-03-26] MED LIST changes: -METOLAZONE 5 MG TAB ONE; -METOLAZONE 5 MG TAB PO ONE; -SODIUM CHLORIDE 0.9% 1,000 ML IV ONE
--- NOTE | 2019-03-26 08:30 | NUR ---
Initial PICC Line PICC line ROSANA assessed before access for ordered medications per MD. Port accessed per protocol flushed with 10 ml 0.9% NS prior to administration of ordered medication. See e-MAR for medications given during this visit.
[2019-03-26 09:15] VITALS: BP 122/62
[2019-03-26 09:30] VITALS: BP 100/64
[2019-03-26 10:15] VITALS: BP 117/63
[2019-03-26 11:35] VITALS: BP 104/63
[2019-03-26 12:35] VITALS: BP 114/59
[2019-03-26 14:00] VITALS: BP 101/61
--- NOTE | 2019-03-26 14:00 | NUR ---
CHF INFUSIONS COMPLETED. TOLERATED WELL. SEE FREQUENT VITALS. PICC LINE INTACT . SITE BENIGN POST INFUSION. EDUCATION REGARDING DIET AND SODIUM MANAGEMENT. REPEAT BACK INSTRUCTIONS OBTAINED. MEDICATION ADMINISTRATION MILRINONE GTT AT 0.375 MCG/KG/MIN (12.64 ML/HR) START AT 0845/STOP AT 1300 LASIX 120 MG IN 120 ML START AT 1300/STOP AT 1340 (TOTAL 120 MG ADMINISTERED) K DUR 40 MEQ PO AT 0845 HEPARIN 150 UNITS IVP TO TRIPLE LUMEN PICC LINE 0.9 NS 100 ML FOR LASIX ADMIXTURE
--- NOTE | 2019-03-27 07:00 | NUR ---
LATE ENTRY FOR 03/26/19 AT 0845 ALL MEDS ADMINISTERED ON 03/26/19 LATE ENTRY COMPLETED FOR MEDICATION ADMINISTRATION, UNABLE TO FULLY DOCUMENT ADMINI TIMES DUE TO LIMITS OF LATE ENTRY CAPABILITY.
== END | disposition home or self-care (01) ==
LOC: CHF HDHVI 08:29
PROVIDERS: ATTEND Internal Medicine Cardiovascular Disease
DX: I13.0 Hypertensive heart and chronic kidney disease with heart failure and stage 1 through stage 4 chronic kidney disease, or unspecified chronic kidney disease (principal); E11.22 Type 2 diabetes mellitus with diabetic chronic kidney disease; I50.42 Chronic combined systolic (congestive) and diastolic (congestive) heart failure; N18.3 Chronic kidney disease, stage 3 (moderate); I25.10 Atherosclerotic heart disease of native coronary artery without angina pectoris; I48.0 Paroxysmal atrial fibrillation; E78.5 Hyperlipidemia, unspecified; F41.9 Anxiety disorder, unspecified; E66.01 Morbid (severe) obesity due to excess calories; Z68.41 Body mass index [BMI] 40.0-44.9, adult; I42.9 Cardiomyopathy, unspecified; I25.2 Old myocardial infarction; Z79.899 Other long term (current) drug therapy; Z95.810 Presence of automatic (implantable) cardiac defibrillator; Z86.73 Personal history of transient ischemic attack (TIA), and cerebral infarction without residual deficits; Z79.01 Long term (current) use of anticoagulants
CPT/HCPCS: 96365; 96366; 96367; G0463; J1642; J1940; J2260; 96368

== ENCOUNTER → 2019-03-30 | Outpatient (CLI) | payer MEDICARE, MEDICAID ==
[2019-03-30] VITALS (9 sets, daily range): BP systolic 103–120; BP diastolic 60–77
[~2019-03-30] MED LIST changes: +ALBUTEROL SULF 2.5 MG/0.5ML(0.5%) NEB SOLN NEB ONE; +ALBUTEROL SULF 2.5 MG/0.5ML(0.5%) NEB SOLN ONE; +ALUM & MAG HYDROX-SIMETH LIQ(MAALOX) 30 ML ONE; +SODIUM CHLORIDE 0.9% 1,000 ML IV ONE
--- NOTE | 2019-03-30 09:30 | NUR ---
Initial PICC Line PICC line ROSANA assessed before access by Isis HARDY for ordered medications per MD. Port accessed per protocol flushed with 10 ml 0.9% NS prior to administration of ordered medication. See e-MAR for medications given during this visit.
[2019-03-30 12:36] LABS: Potassium 4.2 mmol/L (3.5-5.1)
--- NOTE | 2019-03-30 14:00 | NUR ---
ASSESSMENT PT TOLERATING THERAPY , A/O X 3 PLEASEANT
--- NOTE | 2019-03-30 15:00 | NUR ---
Discharge Instructions See e-MAR for any mediations given with this visit. Patient education given on disease process. Patient verbalized understanding. Previous labs reviewed. Patient discharged in stable condition with after care instructions and follow up appointment. MEDICATIONS 0945 START TIME MILRINONE DRIP 0.375 MCG/KG/MIN 1345 STOP TIME MILRINONE DRIP MED NEB ALBUTEROL 2.5 MG X 1 LASIX DRIP 120 MG IVPB OVER 31 MINUTES POTASSIUM 30 MEQ PO X 1 HEPARIN 150 UNITS IVP X 3 TO EACH PICC PORT
== END | disposition home or self-care (01) ==
LOC: CHF HDHVI 09:26
PROVIDERS: ATTEND Internal Medicine Cardiovascular Disease
DX: I13.0 Hypertensive heart and chronic kidney disease with heart failure and stage 1 through stage 4 chronic kidney disease, or unspecified chronic kidney disease (principal); E11.22 Type 2 diabetes mellitus with diabetic chronic kidney disease; N18.3 Chronic kidney disease, stage 3 (moderate); I50.42 Chronic combined systolic (congestive) and diastolic (congestive) heart failure; I25.10 Atherosclerotic heart disease of native coronary artery without angina pectoris; I48.0 Paroxysmal atrial fibrillation; I25.2 Old myocardial infarction; I42.9 Cardiomyopathy, unspecified; E87.6 Hypokalemia; R94.4 Abnormal results of kidney function studies; R06.02 Shortness of breath; F41.9 Anxiety disorder, unspecified; E66.9 Obesity, unspecified; E78.5 Hyperlipidemia, unspecified; Z95.810 Presence of automatic (implantable) cardiac defibrillator; Z86.73 Personal history of transient ischemic attack (TIA), and cerebral infarction without residual deficits; Z79.899 Other long term (current) drug therapy; Z68.41 Body mass index [BMI] 40.0-44.9, adult; Z79.01 Long term (current) use of anticoagulants
CPT/HCPCS: 36415; 82565; 83880; 84132; 84520; 94640; 96365; 96366; 96367; G0463; J1642; J1940; J2260; J7030; J7611

== ENCOUNTER → 2019-04-01 | Outpatient (CLI) | payer MEDICARE, MEDICAID ==
[~2019-04-01] VITALS: Ht 30.5 cm; Wt 112.5 kg
[2019-04-01] VITALS (9 sets, daily range): BP systolic 110–126; BP diastolic 63–74
[~2019-04-01] MED LIST changes: -ALBUTEROL SULF 2.5 MG/0.5ML(0.5%) NEB SOLN NEB ONE; -ALBUTEROL SULF 2.5 MG/0.5ML(0.5%) NEB SOLN ONE; -ALUM & MAG HYDROX-SIMETH LIQ(MAALOX) 30 ML ONE; +MILRINONE 20MG/100ML 100 ML IV SCH; -SODIUM CHLORIDE 0.9% 1,000 ML IV ONE; +SODIUM CHLORIDE 0.9% 100 ML IV ONE
--- NOTE | 2019-04-01 08:30 | NUR ---
CHF PT ARRIVED AT THE CHF CLINIC FOR WEEKLY THERAPY 0 DISTRESS A/O X 3 VSS
--- NOTE | 2019-04-01 11:45 | NUR ---
Discharge Instructions See e-MAR for any mediations given with this visit. Patient education given on disease process. Patient verbalized understanding. Previous labs reviewed. Patient discharged in stable condition with after care instructions and follow up appointment. MEDICATIONS START TIME 0840 MILRIONONE DRIP 0.375 MCG/KG/MIN STOP TIME 1140 START TIME LASIX DRIP 120 MG /100 ML STOP TIME 1140 POTASSIUM 30 MEQ PO X 1 HEPARIN 450 UNITS IVP X 1 TO EACH PICC PORT Addendum: 04/14/19 at 1026 by Marjorie Becker RN RN POTASSIUM 40MEQ PO ADMINISTERED
== END | disposition home or self-care (01) ==
LOC: CHF HDHVI 08:36
PROVIDERS: ATTEND Internal Medicine Cardiovascular Disease
DX: I13.0 Hypertensive heart and chronic kidney disease with heart failure and stage 1 through stage 4 chronic kidney disease, or unspecified chronic kidney disease (principal); E11.22 Type 2 diabetes mellitus with diabetic chronic kidney disease; I50.42 Chronic combined systolic (congestive) and diastolic (congestive) heart failure; N18.3 Chronic kidney disease, stage 3 (moderate); I25.10 Atherosclerotic heart disease of native coronary artery without angina pectoris; I25.2 Old myocardial infarction; I42.9 Cardiomyopathy, unspecified; I48.0 Paroxysmal atrial fibrillation; F41.9 Anxiety disorder, unspecified; E78.5 Hyperlipidemia, unspecified; E66.01 Morbid (severe) obesity due to excess calories; Z68.41 Body mass index [BMI] 40.0-44.9, adult; Z86.73 Personal history of transient ischemic attack (TIA), and cerebral infarction without residual deficits; Z95.810 Presence of automatic (implantable) cardiac defibrillator; Z79.01 Long term (current) use of anticoagulants; Z79.899 Other long term (current) drug therapy
CPT/HCPCS: 96365; 96366; 96368; G0463; J1642; J1940; J2260

== ENCOUNTER → 2019-04-06 | Outpatient (CLI) | payer MEDICARE, MEDICAID ==
[~2019-04-06] VITALS: Ht 30.5 cm; Wt 0.5 kg
[2019-04-06] VITALS (11 sets, daily range): BP systolic 114–133; BP diastolic 69–80
[~2019-04-06] MED LIST changes: -FUROSEMIDE 20 MG/2 ML VIAL ONE; +FUROSEMIDE 40 MG/4 ML VIAL ONE; +MILRINONE 20MG/100ML 0 ML IV ONE; -SODIUM CHLORIDE 0.9% 100 ML IV ONE
--- NOTE | 2019-04-06 08:37 | NUR ---
CHF PT ARRIVED AT CHF CLINIC. POSITIVE ATTITUTDE, A/O X 3, O DISTRESS. WEEKLY THERAPY ORDERED FOR MILRINONE. VSS
--- NOTE | 2019-04-06 11:23 | NUR ---
ASSESS PT TOLERATING THERAPY WELL. O DISTRESS
[2019-04-06 12:08] LABS: Potassium 4.2 mmol/L (3.5-5.1)
--- NOTE | 2019-04-06 13:15 | NUR ---
PICC LINE DRESSING TO RIGHT ARM CHANGED WITH STERILE TECHNIQUE. TOLERATED WELL. PICC Line Dressing Changes PICC line dressing change done with a sterile technique. Cleansed with chloraprep scruB. Stat lock, and bio-patch. Occlusive dressing applied. Changed claves weekly and post lab draw. EACH LINE HEPARINIZED AND CAPPED.
--- NOTE | 2019-04-06 13:30 | NUR ---
Discharge Instructions See e-MAR for any mediations given with this visit. Patient education given on disease process. Patient verbalized understanding. Previous labs reviewed. Patient discharged in stable condition with after care instructions and follow up appointment. MEDICATIONS 0850 START TIME MILRINONE DRIP 0.375 MCG/KG/MIN 1300 STOP TIME MILRINONE DRIP 1232 START TIME LASIX 120MG/100ML NS OVER 35 MINUTES 1335 STOP TIME LASIX DRIP POTASSIUM 30 MEQ PO X 1 HEPARIN 450 UNITS IVP TO TL PICC LINE PORTS
== END | disposition home or self-care (01) ==
LOC: CHF HDHVI 09:06
PROVIDERS: ATTEND Internal Medicine Cardiovascular Disease
DX: I13.0 Hypertensive heart and chronic kidney disease with heart failure and stage 1 through stage 4 chronic kidney disease, or unspecified chronic kidney disease (principal); E11.22 Type 2 diabetes mellitus with diabetic chronic kidney disease; I50.42 Chronic combined systolic (congestive) and diastolic (congestive) heart failure; N18.3 Chronic kidney disease, stage 3 (moderate); I25.10 Atherosclerotic heart disease of native coronary artery without angina pectoris; I42.9 Cardiomyopathy, unspecified; I48.0 Paroxysmal atrial fibrillation; I25.2 Old myocardial infarction; E78.5 Hyperlipidemia, unspecified; E87.5 Hyperkalemia; E66.01 Morbid (severe) obesity due to excess calories; Z68.41 Body mass index [BMI] 40.0-44.9, adult; Z95.810 Presence of automatic (implantable) cardiac defibrillator; Z86.73 Personal history of transient ischemic attack (TIA), and cerebral infarction without residual deficits; Z79.01 Long term (current) use of anticoagulants; Z79.899 Other long term (current) drug therapy
CPT/HCPCS: 36415; 82565; 83880; 84132; 84520; 96365; 96366; 96368; G0463; J1642; J1940; J2260

== ENCOUNTER → 2019-04-08 | Outpatient (CLI) | payer MEDICARE, MEDICAID ==
[~2019-04-08] VITALS: Ht 30.5 cm; Wt 113.4 kg
[2019-04-08] VITALS (11 sets, daily range): BP systolic 108–132; BP diastolic 55–82
[~2019-04-08] MED LIST changes: +FUROSEMIDE 20 MG/2 ML VIAL ONE; -FUROSEMIDE 40 MG/4 ML VIAL ONE; -MILRINONE 20MG/100ML 0 ML IV ONE; +SODIUM CHLORIDE 0.9% 100 ML IV ONE
--- NOTE | 2019-04-08 08:22 | NUR ---
CHF PT ARRIVED AT THE CHF CLINIC FOR TX AND FOLLOW UP/ PT IS A/O X 3 , VITAL SIGNS OBTAINED 0 DISTRESS
--- NOTE | 2019-04-08 12:05 | NUR ---
PT TOLERATING THERAPY WELL
--- NOTE | 2019-04-21 14:27 | NUR ---
LATE ENTRY FOR 04/08/19 MILRINONE INFUSION [phone] ADMIN BY ABHILASH HARDY. LASIX IVPB [phone] ADMIN BY ABHILASH HARDY. POTASSIUM PO ADMIN BY ABHILASH HARDY. HEPARIN ADMIN BY ABHILASH HARDY.
== END | disposition home or self-care (01) ==
LOC: CHF HDHVI 09:07
PROVIDERS: ATTEND Internal Medicine Cardiovascular Disease
DX: I13.0 Hypertensive heart and chronic kidney disease with heart failure and stage 1 through stage 4 chronic kidney disease, or unspecified chronic kidney disease (principal); E11.22 Type 2 diabetes mellitus with diabetic chronic kidney disease; I50.42 Chronic combined systolic (congestive) and diastolic (congestive) heart failure; N18.3 Chronic kidney disease, stage 3 (moderate); I25.10 Atherosclerotic heart disease of native coronary artery without angina pectoris; I42.9 Cardiomyopathy, unspecified; I25.2 Old myocardial infarction; I48.0 Paroxysmal atrial fibrillation; E78.5 Hyperlipidemia, unspecified; E66.01 Morbid (severe) obesity due to excess calories; Z68.41 Body mass index [BMI] 40.0-44.9, adult; Z79.899 Other long term (current) drug therapy; Z79.01 Long term (current) use of anticoagulants; Z95.810 Presence of automatic (implantable) cardiac defibrillator; Z86.73 Personal history of transient ischemic attack (TIA), and cerebral infarction without residual deficits
CPT/HCPCS: 96365; 96366; 96368; G0463; J1642; J1940; J2260

== ENCOUNTER → 2019-04-13 | Outpatient (CLI) | payer MEDICARE, MEDICAID ==
[2019-04-13] VITALS (12 sets, daily range): BP systolic 94–129; BP diastolic 52–78
[~2019-04-13] MED LIST changes: -SODIUM CHLORIDE 0.9% 100 ML IV ONE; +SODIUM CHLORIDE 0.9% 100 ML IV SCH
--- NOTE | 2019-04-13 08:17 | NUR ---
IN FOR SCHEDULED INFUSION. AFFECT CHEERFUL AND WITHOUT DISTRESS. PICC LINE DRESSING COVERED WITH ADDITIONAL WHITE OCCLUSIVE TAPE THAT PT APPLIED, STATING THE TAPE WAS COMING OFF. PICC LINE ACCESSED AND ALL PORTS FLUSHED. UNABLE TO DRAW BLOOD FROM ANY PORT, NOT A NEW FINDING. FLUSHED EASILY AND WITHOUT ANY RESISTANCE.
--- NOTE | 2019-04-13 09:00 | NUR ---
LABS DRAWN PERIPHERALLY AND SENT FOR RESULTS.
[2019-04-13 13:30] LABS: BUN/Creatinine Ratio 13.4; Calcium 8.7 mg/dL (8.5-10.1); Potassium 3.6 mmol/L (3.5-5.1)
--- NOTE | 2019-04-13 13:30 | NUR ---
LASIX INFUSION COMPLETED. DRESSING TO RIGHT ARM PICC LINE REMOVED, FOUND TO HAVE PICC LINE CATHETER SIGNIFICANTLY "BACKED OUT", MEASURED AT 25 CM FROM HUB TO INSERTION SITE. PREVIOUSLY NOTED TO BE AT 5CM FROM HUB TO INSERTION SITE. PICC LINE DETERMINED TO BE PULLED OUT TO FAR FOR ADEQUATE FURTHER DRESSINGS AND INFUSIONS, MORE LIKE A PERIPHERAL IV CURRENTLY. REMAINDER OF PICC LINE PULLED OUT SLOWLY AND TIP VERIFIED. NO BLEEDING NOTED. SMALL DRESSING APPLIED. PT IS DUE FOR PORT A CATH PLACEMENT, WAS ACTUALLY SCHEDULED YESTERDAY WITH DR NEAL, AND PTS APPOINTMENT WAS CANCELLED PER PATIENT.
--- NOTE | 2019-04-13 13:30 | NUR ---
CHF DISCHARGED TO SELF CARE IN NO DISTRESS OR DISCOMFORT AT TIME OF DISCHARGE. MEDICATION ADMINISTRATION MILRINONE GTT AT 0.375 MCG/KG/MIN START AT 0835/STOP AT 1240 (12.85 ML/HR) POTASSIUM 40 MEQ PO AT 1240 LASIX 120 MG IN 100 ML 0.9 NS START AT 1240/STOP AT 1330 HEPARIN 150 UNITS IVP TO PICC LINE PORTS X 3 DRESSING CHANGE TO RIGHT UPPER ARM PICC LINE INITIATED, THEN PICC LINE DCD. CALL PLACED TO DR NEAL FOR FOLLOWUP FOR PAC PLACEMENT. PT NOTIFIED OF FOLLOWUP FOR TOMORROW REGARDING PORT PLACEMENT AT [phone]
== END | disposition home or self-care (01) ==
LOC: CHF HDHVI 08:24
PROVIDERS: ATTEND Internal Medicine Cardiovascular Disease
DX: I13.0 Hypertensive heart and chronic kidney disease with heart failure and stage 1 through stage 4 chronic kidney disease, or unspecified chronic kidney disease (principal); E11.22 Type 2 diabetes mellitus with diabetic chronic kidney disease; N18.3 Chronic kidney disease, stage 3 (moderate); I50.23 Acute on chronic systolic (congestive) heart failure; I25.10 Atherosclerotic heart disease of native coronary artery without angina pectoris; I42.9 Cardiomyopathy, unspecified; E78.5 Hyperlipidemia, unspecified; I25.2 Old myocardial infarction; I48.0 Paroxysmal atrial fibrillation; F41.9 Anxiety disorder, unspecified; E66.01 Morbid (severe) obesity due to excess calories; Z68.41 Body mass index [BMI] 40.0-44.9, adult; Z79.899 Other long term (current) drug therapy; Z79.01 Long term (current) use of anticoagulants; Z95.810 Presence of automatic (implantable) cardiac defibrillator; Z86.73 Personal history of transient ischemic attack (TIA), and cerebral infarction without residual deficits
CPT/HCPCS: 36415; 80048; 83880; 96365; 96366; 96367; G0463; J1642; J1940; J2260

== ENCOUNTER → 2019-04-15 | Outpatient (CLI) | payer MEDICARE, MEDICAID ==
[2019-04-15] VITALS (13 sets, daily range): BP systolic 98–117; BP diastolic 63–80
[~2019-04-15] MED LIST changes: -POTASSIUM CHL 20 Meq TABLET PO ONE; +SODIUM CHLORIDE 0.9% 100 ML IV ONE; -SODIUM CHLORIDE 0.9% 100 ML IV SCH
--- NOTE | 2019-04-15 08:28 | NUR ---
CHF PT ARRIVED AT THE CHF CLINIC FOR TX AND EVAL VSS. A/O X 3 0 DISTRESS
--- NOTE | 2019-04-15 08:55 | NUR ---
IV insertion IV access obtained, via clean sterile technique by inserting 22 gauge catheter at after attempt(s). IV secured properly. No trauma to site. Patient tolerated procedure well.
--- NOTE | 2019-04-15 11:30 | NUR ---
CHF PT ARRIVED AT [facility] FOR F/U PAH Addendum: 04/15/19 at 1723 by ABHILASH YANG RN RN SC WRONG PT
--- NOTE | 2019-04-15 13:30 | NUR ---
IV removal IV DC'd with sterile technique, catheter fully intact. Pressure dressing applied to site. Patient tolerated procedure well. Discharged with aftercare instructions per MD. NOTE:
--- NOTE | 2019-04-15 13:44 | NUR ---
Discharge Instructions See e-MAR for any mediations given with this visit. Patient education given on disease process. Patient verbalized understanding. Previous labs reviewed. Patient discharged in stable condition with after care instructions and follow up appointment. MEDICATIONS MILRINONE DRIP 4212-9886 LASIX 120 MG IVPB OVER 35 MIN POTASSIUM 40 MEQ PO
== END | disposition home or self-care (01) ==
LOC: CHF HDHVI 08:42
PROVIDERS: ATTEND Internal Medicine Cardiovascular Disease
DX: I13.0 Hypertensive heart and chronic kidney disease with heart failure and stage 1 through stage 4 chronic kidney disease, or unspecified chronic kidney disease (principal); E11.22 Type 2 diabetes mellitus with diabetic chronic kidney disease; N18.3 Chronic kidney disease, stage 3 (moderate); I50.42 Chronic combined systolic (congestive) and diastolic (congestive) heart failure; I25.10 Atherosclerotic heart disease of native coronary artery without angina pectoris; I42.9 Cardiomyopathy, unspecified; I25.2 Old myocardial infarction; I48.0 Paroxysmal atrial fibrillation; F41.9 Anxiety disorder, unspecified; E78.5 Hyperlipidemia, unspecified; E66.01 Morbid (severe) obesity due to excess calories; Z68.41 Body mass index [BMI] 40.0-44.9, adult; Z95.810 Presence of automatic (implantable) cardiac defibrillator; Z86.73 Personal history of transient ischemic attack (TIA), and cerebral infarction without residual deficits; Z79.01 Long term (current) use of anticoagulants
CPT/HCPCS: 96365; 96366; 96367; G0463; J1940; J2260; 96368

== ENCOUNTER 2019-06-06 22:25 | Inpatient (IN) | payer MEDICARE, MEDICAID | END 2019-06-11 12:27 | disposition home or self-care (01) | LOC: TELE-WESTW 06-07 11:37 → ER 22:25 → TELE 22:26 → TELE-WESTW 06-07 11:55 | DX: I21.4 Non-ST elevation (NSTEMI) myocardial infarction (principal); I50.43 Acute on chronic combined systolic (congestive) and diastolic (congestive) heart failure; I13.0 Hypertensive heart and chronic kidney disease with heart failure and stage 1 through stage 4 chronic kidney disease, or unspecified chronic kidney disease; N18.9 Chronic kidney disease, unspecified ==

== ENCOUNTER → 2019-06-23 | Outpatient (CLI) | payer MEDICARE, MEDICAID ==
[~2019-06-23] MED LIST changes: -MILRINONE 20MG/100ML 100 ML IV ONE; -MILRINONE 20MG/100ML 100 ML IV SCH; -POTASSIUM CHL 10 Meq TABLET PO ONE; -SODIUM CHLORIDE 0.9% 100 ML IV ONE; +metOLazone 5 MG TAB ONE; +metOLazone 5 MG TAB PO ONE
--- NOTE | 2019-06-23 08:40 | NUR ---
CHF PT ARRIVED AT CHF CLINIC FOR FOLLOW UP. HAS NOT BEEN SEEN IN THE CLINIC FOR 2 MONTHS ATLEAST. SENT OVER TO SEE DR JACOBSEN
--- NOTE | 2019-06-23 08:54 | NUR ---
IN TO CLINIC WITH RESPIRATORY DISTRESS WITH AMBULATION. NO OXYGEN FROM HOME, BUT PT REPORTS USING OXYGEN ALL THE TIME AT HOME. UNABLE TO FULLY REMEMBER ALL MEDICATIONS, AND DID NOT BRING MEDICATIONS. PT HAS APPOINTMENT WITH DR JACOBSEN THIS AM. CONSULTED AND STAT LABS TO BE DRAWN. IV PLACED TO LEFT HAND 22 GAUGE X 1 ATTEMPT BY ANTONIETTA HARDY. STAT LABS DRAWN AND SENT. TO BACK OFFICE FOR DR JACOBSEN APPOINTMENT.
[2019-06-23 09:19] LABS: Eosinophils # (auto) 0 uL; Hemoglobin 12.7 g/dL (13.5-17.5); Lymphocytes # (auto) 0.8 uL; Monocytes # (auto) 0.5 uL; Red Blood Cells 4.96 10^6/uL (4.5-5.90)
[2019-06-23 09:21] LABS: Basophils # (auto) 0 uL; Basophils % (auto) 0.8 % (0.0-2.0); Eosinophils % (auto) 0.5 % (0.0-7.0); Lymphocytes % (auto) 13.5 % (10.0-50.0); Mean Corpuscular Hemoglobin 25.5 pg (28.0-32.0); Mean Corpuscular Hgb Conc. 32.5 g/dL (32.0-36.0); Mean Corpuscular Volume 78.7 fL (80.0-100.0); Monocytes % (auto) 8.6 % (0.0-12.0); Neutrophils # (auto) 4.8 uL; Neutrophils % (auto) 76.6 % (37.0-80.0); Nucleated Red Blood Cells % 0.5 %; Platelet Count (auto) 239 10^3/uL (140-450); Red Cell Distribution Width 21.7 % (11.8-14.3); White Blood Cell 6.3 10^3/uL (4.4-10.8)
[2019-06-23 09:31] LABS: Albumin 3.2 g/dL (3.4-5.0); Calcium 8.8 mg/dL (8.5-10.1); Potassium 3.8 mmol/L (3.5-5.1)
[2019-06-23 09:33] LABS: Bilirubin, Total 0.6 mg/dL (0.2-1.0); Total Protein 7.6 g/dL (6.4-8.2)
--- NOTE | 2019-06-23 11:00 | NUR ---
IV removal IV DC'd with sterile technique, catheter fully intact. Pressure dressing applied to site. Patient tolerated procedure well. Discharged with aftercare instructions per MD. NOTE:
[2019-06-23 11:05] VITALS: BP 138/95
--- NOTE | 2019-06-23 11:05 | NUR ---
Discharge Instructions See e-MAR for any mediations given with this visit. Patient education given on disease process. Patient verbalized understanding. Previous labs reviewed. Patient discharged in stable condition with after care instructions and follow up appointment. MEDICATIONS LASIX IV METOLAZONE PO
== END | disposition home or self-care (01) ==
LOC: CHF HDHVI 08:32
PROVIDERS: ATTEND Internal Medicine Cardiovascular Disease
DX: I13.0 Hypertensive heart and chronic kidney disease with heart failure and stage 1 through stage 4 chronic kidney disease, or unspecified chronic kidney disease (principal); I50.42 Chronic combined systolic (congestive) and diastolic (congestive) heart failure; N18.9 Chronic kidney disease, unspecified; I48.91 Unspecified atrial fibrillation; D64.9 Anemia, unspecified; R60.0 Localized edema; F41.9 Anxiety disorder, unspecified; Z86.73 Personal history of transient ischemic attack (TIA), and cerebral infarction without residual deficits
CPT/HCPCS: 36415; 80053; 83880; 85025; 96374; G0463; J1940

== ENCOUNTER → 2019-06-25 | Outpatient (CLI) | payer MEDICARE, MEDICAID ==
[~2019-06-25] MED LIST changes: +CYANOCOBALAMIN (B-12) 1000 MCG/1 ML VIAL IM ONE; +CYANOCOBALAMIN (B-12) 1000 MCG/1 ML VIAL ONE; -FUROSEMIDE 100 MG/10ML VIAL IV ONE; +FUROSEMIDE 20 MG TAB PO ONE; -FUROSEMIDE 20 MG/2 ML VIAL ONE; +FUROSEMIDE 40 MG TAB ONE; -FUROSEMIDE INJECTION 10 ML ONE; +POTASSIUM EFFERVESENT TAB 25 MEQ ONE; +POTASSIUM EFFERVESENT TAB 25 MEQ PO ONE
[2019-06-25 09:50] VITALS: BP 113/80
--- NOTE | 2019-06-25 09:50 | NUR ---
CHF CLINIC Discharge Instructions See e-MAR for any mediations given with this visit. Patient education given on disease process. Patient verbalized understanding. Previous labs reviewed. Patient discharged in stable condition with after care instructions and follow up appointment. NOTE B12 IM L DELTOID ADMIN BY ACRMEN GÓMEZ. POTASSIUM PO ADMIN BY CARLY HARDY. LASIX PO ADMIN BY CARLY HARDY. METOLAZONE PO ADMIN BY CARLY HARDY.
[2019-06-25 10:14] LABS: Potassium 3.9 mmol/L (3.5-5.1)
== END | disposition home or self-care (01) ==
LOC: CHF HDHVI 09:03
PROVIDERS: ATTEND Internal Medicine Cardiovascular Disease
DX: I13.0 Hypertensive heart and chronic kidney disease with heart failure and stage 1 through stage 4 chronic kidney disease, or unspecified chronic kidney disease (principal); I50.42 Chronic combined systolic (congestive) and diastolic (congestive) heart failure; N18.9 Chronic kidney disease, unspecified; R06.02 Shortness of breath; R53.83 Other fatigue; I48.91 Unspecified atrial fibrillation; R60.9 Edema, unspecified; R94.4 Abnormal results of kidney function studies; E87.6 Hypokalemia; E78.5 Hyperlipidemia, unspecified; Z86.73 Personal history of transient ischemic attack (TIA), and cerebral infarction without residual deficits
CPT/HCPCS: 36415; 82565; 84132; 84520; 96372; G0463; J3420

== ENCOUNTER → 2019-06-29 | Outpatient (CLI) | payer MEDICARE, MEDICAID ==
[~2019-06-29] MED LIST changes: -CYANOCOBALAMIN (B-12) 1000 MCG/1 ML VIAL IM ONE; -CYANOCOBALAMIN (B-12) 1000 MCG/1 ML VIAL ONE; +POTASSIUM CHL 10 Meq TABLET PO ONE; +POTASSIUM CHL 20 Meq TABLET PO ONE; -POTASSIUM EFFERVESENT TAB 25 MEQ ONE; -POTASSIUM EFFERVESENT TAB 25 MEQ PO ONE
--- NOTE | 2019-06-29 08:54 | NUR ---
chf PT ARRIVED AT THE CHF CLINIC FOR WEEKLY F/U. A/O X 4 0 DISTRESS VSS
[2019-06-29 09:45] VITALS: BP 117/76
--- NOTE | 2019-06-29 09:45 | NUR ---
Discharge Instructions See e-MAR for any mediations given with this visit. Patient education given on disease process. Patient verbalized understanding. Previous labs reviewed. Patient discharged in stable condition with after care instructions and follow up appointment. MEDICATIONS METOLAZONE PO LASIX PO KDUR PO
[2019-06-29 12:28] LABS: Eosinophils # (auto) 0.1 uL; Hemoglobin 14.2 g/dL (13.5-17.5)
[2019-06-29 12:31] LABS: Basophils # (auto) 0 uL; Eosinophils % (auto) 1.9 % (0.0-7.0); Hematocrit 44.7 % (41.0-53.0); Lymphocytes # (auto) 0.8 uL; Mean Corpuscular Hemoglobin 25.4 pg (28.0-32.0); Mean Corpuscular Hgb Conc. 31.7 g/dL (32.0-36.0); Mean Corpuscular Volume 80.1 fL (80.0-100.0); Monocytes # (auto) 0.6 uL; Monocytes % (auto) 12.3 % (0.0-12.0); Neutrophils # (auto) 3.2 uL; Neutrophils % (auto) 67.8 % (37.0-80.0); Nucleated Red Blood Cells % 0.2 %; Platelet Count (auto) 221 10^3/uL (140-450); Red Blood Cells 5.59 10^6/uL (4.5-5.90); Red Cell Distribution Width 21.1 % (11.8-14.3); White Blood Cell 4.8 10^3/uL (4.4-10.8)
[2019-06-29 12:42] LABS: BUN/Creatinine Ratio 16.8; Magnesium 2.2 mg/dL (1.6-2.6); Potassium 3.8 mmol/L (3.5-5.1)
== END | disposition home or self-care (01) ==
LOC: CHF HDHVI 08:57
PROVIDERS: ATTEND Internal Medicine Cardiovascular Disease
DX: I11.0 Hypertensive heart disease with heart failure (principal); I50.9 Heart failure, unspecified; D64.9 Anemia, unspecified; R60.9 Edema, unspecified
CPT/HCPCS: 36415; 80048; 83735; 83880; 85025; G0463

== ENCOUNTER → 2019-07-01 | Outpatient (CLI) | payer MEDICARE, MEDICAID ==
[~2019-07-01] MED LIST changes: -FUROSEMIDE 20 MG TAB PO ONE; -FUROSEMIDE 40 MG TAB ONE; +FUROSEMIDE 40 MG/4 ML VIAL IV ONE; +FUROSEMIDE 40 MG/4 ML VIAL ONE; -POTASSIUM CHL 10 Meq TABLET PO ONE; -metOLazone 5 MG TAB ONE; -metOLazone 5 MG TAB PO ONE
[2019-07-01 09:39] VITALS: BP 120/74
[2019-07-01 10:45] VITALS: BP 120/74
--- NOTE | 2019-07-01 10:45 | NUR ---
IN TO CLINIC FOR CHF FOLLOWUP. PT REPORTS COMPLIANCE WITH MEDICATIONS. ASKING FOR NEW RX FOR XANAX. PT REPORTS HAVING A PREVIOUS PRESCRIPTION. OFFERED TO SEND PT TO DR BASSETT TODAY FOR RX BUT PT UNABLE TO STAY. WILL FOLLOWUP NEXT WEEK AT SCHEDULED APPOINTMENT. LABS DRAWN AND SENT. CLINIC PROVIDER CONSULTED AND ORDERS RECIEVED. MEDICATED PER ORDER. DISCHARGED TO SELF CARE IN NO DISTRESS OR DISCOMFORT. MEDICATION ADMINISTRATION LASIX 40 MG IVP X 1 AT 1010 POTASSIUM 30 MEQ PO AT 1020
[2019-07-01 14:59] LABS: Magnesium 2.2 mg/dL (1.6-2.6); Potassium 3.8 mmol/L (3.5-5.1)
== END | disposition home or self-care (01) ==
LOC: CHF HDHVI 10:05
PROVIDERS: ATTEND Internal Medicine Cardiovascular Disease
DX: I13.0 Hypertensive heart and chronic kidney disease with heart failure and stage 1 through stage 4 chronic kidney disease, or unspecified chronic kidney disease (principal); I50.42 Chronic combined systolic (congestive) and diastolic (congestive) heart failure; N18.9 Chronic kidney disease, unspecified; I25.10 Atherosclerotic heart disease of native coronary artery without angina pectoris; I48.91 Unspecified atrial fibrillation; R94.4 Abnormal results of kidney function studies; E87.6 Hypokalemia; F41.9 Anxiety disorder, unspecified; E78.5 Hyperlipidemia, unspecified; Z86.73 Personal history of transient ischemic attack (TIA), and cerebral infarction without residual deficits
CPT/HCPCS: 36415; 82565; 83735; 84132; 84520; 93701; 96374; G0463; J1940

== ENCOUNTER → 2019-07-06 | Outpatient (CLI) | payer MEDICARE, MEDICAID ==
[~2019-07-06] MED LIST changes: +CYANOCOBALAMIN (B-12) 1000 MCG/1 ML VIAL IM ONE; +CYANOCOBALAMIN (B-12) 1000 MCG/1 ML VIAL ONE; +POTASSIUM CHL 10 Meq TABLET PO ONE
[2019-07-06 09:16] VITALS: BP 109/71
--- NOTE | 2019-07-06 10:30 | NUR ---
.. IN TO CLINIC FOR CHF. DYSPNEA WITH ACTIVITY AND RESOLVES WITH REST. VS WNL. PREVIOUS LABS REVIEWED AND CLINIC PROVIDER CONSULTED. ADDITIONAL LABS DRAWN AND SENT. PT MEDICATED PER ORDER. INR CHECKED. PT REPORTS INTERMITTENT COMPLIANCE WITH COUMADIN. REVIEWED NECESSITY FOR MEDICATION ESPECIALLY RELATED TO RECENT STROKE, LESS THAN 1 YEAR AGO. PT VERBALIZES UNDERSTANDING. INR CHECKED WITH RESULT 1.2. FOLLOWUP APPOINTMENT MADE WITH DR JACOBSEN FOR 07/13 IN [place] AND FOR CHF CLINIC ON 07/08/19 REPEAT BACK INSTRUCTIONS OBTAINED. . PT INSTRUCTED TO TAKE COUMADIN 4 MG TODAY AND THEN TO CONTINUE WITH 2 MG DAILY THEREAFTER. DISCHARGED TO SELF CARE WITH RIDE ASSISTANCE BACK TO [facility] IN [place]. MEDICATION ADMINISTRATION LASIX 40 MG IVP AT 1050 POTASSIUM 40 MEQ PO AT 1050 VIT B12 1000MCG IM TO LEFT DELTOID AT 1100
[2019-07-06 11:06] VITALS: BP 137/83
[2019-07-06 12:20] LABS: Basophils # (auto) 0 uL; Mean Corpuscular Volume 79.2 fL (80.0-100.0); Monocytes # (auto) 0.5 uL; Neutrophils # (auto) 3.7 uL; Nucleated Red Blood Cells % 0.1 %; White Blood Cell 5.3 10^3/uL (4.4-10.8)
[2019-07-06 12:21] LABS: Potassium 3.9 mmol/L (3.5-5.1)
[2019-07-06 12:22] LABS: BUN/Creatinine Ratio 17.9; Calcium 9.1 mg/dL (8.5-10.1); Magnesium 2.3 mg/dL (1.6-2.6); Phosphorus 2.7 mg/dL (2.5-4.90); Uric Acid 9.5 mg/dL (3.5-7.2)
[2019-07-06 12:24] LABS: Basophils % (auto) 0.7 % (0.0-2.0); Eosinophils # (auto) 0.1 uL; Hematocrit 48.2 % (41.0-53.0); Hemoglobin 15.2 g/dL (13.5-17.5); Lymphocytes % (auto) 18.9 % (10.0-50.0); Mean Corpuscular Hemoglobin 24.9 pg (28.0-32.0); Mean Corpuscular Hgb Conc. 31.5 g/dL (32.0-36.0); Monocytes % (auto) 9.3 % (0.0-12.0); Neutrophils % (auto) 70.1 % (37.0-80.0); Platelet Count (auto) 234 10^3/uL (140-450); Red Blood Cells 6.09 10^6/uL (4.5-5.90)
[2019-07-06 12:25] LABS: Red Cell Distribution Width 21.2 % (11.8-14.3)
== END | disposition home or self-care (01) ==
LOC: CHF HDHVI 09:42
PROVIDERS: ATTEND Internal Medicine Cardiovascular Disease
DX: I13.0 Hypertensive heart and chronic kidney disease with heart failure and stage 1 through stage 4 chronic kidney disease, or unspecified chronic kidney disease (principal); I50.42 Chronic combined systolic (congestive) and diastolic (congestive) heart failure; N18.9 Chronic kidney disease, unspecified; I48.91 Unspecified atrial fibrillation; F41.9 Anxiety disorder, unspecified; E83.40 Disorders of magnesium metabolism, unspecified; D64.9 Anemia, unspecified; M10.9 Gout, unspecified; E78.5 Hyperlipidemia, unspecified; Z86.73 Personal history of transient ischemic attack (TIA), and cerebral infarction without residual deficits
CPT/HCPCS: 36415; 80048; 83735; 83880; 84100; 84550; 85025; 85610; 96372; 96374; G0463; J1940; J3420

== ENCOUNTER → 2019-07-08 | Outpatient (CLI) | payer MEDICARE, MEDICAID ==
[~2019-07-08] VITALS: Ht 1 cm; Wt 0.5 kg
[~2019-07-08] MED LIST changes: -CYANOCOBALAMIN (B-12) 1000 MCG/1 ML VIAL IM ONE; -CYANOCOBALAMIN (B-12) 1000 MCG/1 ML VIAL ONE; -FUROSEMIDE 40 MG/4 ML VIAL IV ONE; -FUROSEMIDE 40 MG/4 ML VIAL ONE; +KETOROLAC TROMETH 60MG/2ML VIAL IM ONE; +KETOROLAC TROMETH 60MG/2ML VIAL ONE; -POTASSIUM CHL 10 Meq TABLET PO ONE; -POTASSIUM CHL 20 Meq TABLET PO ONE
--- NOTE | 2019-07-08 08:52 | NUR ---
PT. TO CHF CLINIC FOR EVAL. AND TX. PT. STATES HE HAS HAS BEEN HAVING SUBSTERNAL CHEST PAIN X 2 DAYS, INTERMITTANTLY, WITH NO C/O PAIN AT THIS TIME. WT. UP APPROX 1 LB SINCE LAST VISIT. MED REC TO BE DONE SINCE LAST HOSP., WITH INR ORDERED. AND EKG ORDERED WITH STAT LABS. SEE NSG ASSESS.
--- NOTE | 2019-07-08 09:00 | NUR ---
STAT LABS DRAWN AND SENT PER MD ORDER.
--- NOTE | 2019-07-08 09:05 | NUR ---
EKG DONE WITH ATRIAL PACED RYTHM NOTED. NO SIGNIFICANT CHANGES NOTED IN COMPARISON FROM EKG OF 11/10.
--- NOTE | 2019-07-08 09:12 | NUR ---
MEDS: PT. MEDICATED WITH TORADOL 60MG IM RT THIGH PER MD ORDER FOR NONSPECIFIC CHEST PAIN WORSENING WITH DEEP BREATH 1/10 PAIN SCALE.
--- NOTE | 2019-07-08 10:00 | NUR ---
COMFORT: PT. STATES NO PAIN AT THIS TIME, EVEN WITH INSPIRATION. [id number], 18
[2019-07-08 10:06] LABS: Basophils # (auto) 0 uL; Neutrophils # (auto) 3.3 uL; Nucleated Red Blood Cells % 0.1 %
[2019-07-08 10:11] LABS: Eosinophils # (auto) 0 uL; Hematocrit 47.9 % (41.0-53.0); Hemoglobin 15.1 g/dL (13.5-17.5); Lymphocytes # (auto) 0.9 uL; Lymphocytes % (auto) 18.8 % (10.0-50.0); Mean Corpuscular Hemoglobin 25.2 pg (28.0-32.0); Mean Corpuscular Hgb Conc. 31.6 g/dL (32.0-36.0); Mean Corpuscular Volume 79.6 fL (80.0-100.0); Monocytes # (auto) 0.4 uL; Monocytes % (auto) 9.5 % (0.0-12.0); Neutrophils % (auto) 69.7 % (37.0-80.0); Platelet Count (auto) 208 10^3/uL (140-450); Red Blood Cells 6.02 10^6/uL (4.5-5.90); White Blood Cell 4.7 10^3/uL (4.4-10.8)
[2019-07-08 10:13] LABS: Red Cell Distribution Width 20.9 % (11.8-14.3)
[2019-07-08 10:32] LABS: Calcium 8.9 mg/dL (8.5-10.1); Potassium 4.2 mmol/L (3.5-5.1)
[2019-07-08 10:39] LABS: BUN/Creatinine Ratio 18.7
--- NOTE | 2019-07-08 12:00 | NUR ---
LABS AND EKG REVIEWED WITH DR. JACOBSEN, WITH KNOWN HX OF NON COMPLIANCE OF MEDICATIONS. PT. HAS NOT BEEN TAKING HIS ENTRESTO, AND OFF PLAVIX. PT. INSTRUCTED TO RESUME THOSE MEDICATIONS TODAY,AND TAKE ADDITIONAL 2MG WARFARIN TONIGHT PER MD ORDER. PT. STATES UNDERSTANDOF MED REC CHANGES.
[2019-07-08 12:50] VITALS: BP 137/89
--- NOTE | 2019-07-08 12:50 | NUR ---
Discharge Instructions See e-MAR for any mediations given with this visit. Patient education given on disease process. Patient verbalized understanding. Previous labs reviewed. Patient discharged in stable condition with after care instructions and follow up appointment. PT. HAS APPT. WITH DR. ANN-MARIE LEWIS. IN [place]. PT. ALSO INSTRUCTED TO CALL 'S OFFICE FOR RESCHEDULING OF COLT CATH INSERTION PER MD ORDER.
== END | disposition home or self-care (01) ==
LOC: CHF HDHVI 09:01
PROVIDERS: ATTEND Internal Medicine Cardiovascular Disease
DX: I13.0 Hypertensive heart and chronic kidney disease with heart failure and stage 1 through stage 4 chronic kidney disease, or unspecified chronic kidney disease (principal); I50.42 Chronic combined systolic (congestive) and diastolic (congestive) heart failure; N18.9 Chronic kidney disease, unspecified; I25.110 Atherosclerotic heart disease of native coronary artery with unstable angina pectoris; I48.91 Unspecified atrial fibrillation; I42.0 Dilated cardiomyopathy; E66.9 Obesity, unspecified; R07.89 Other chest pain; F41.9 Anxiety disorder, unspecified; E78.5 Hyperlipidemia, unspecified; Z86.73 Personal history of transient ischemic attack (TIA), and cerebral infarction without residual deficits
CPT/HCPCS: 36415; 80048; 83880; 84484; 85025; 85610; 93005; 96372; G0463; J1885

== ENCOUNTER 2019-07-11 10:55 | Inpatient (IN) | payer MEDICARE, MEDICAID ==
[~2019-07-11] VITALS: Ht 172.7 cm; Wt 115.7 kg
[~2019-07-11 10:55] MED LIST changes: -KETOROLAC TROMETH 60MG/2ML VIAL IM ONE; -KETOROLAC TROMETH 60MG/2ML VIAL ONE
--- NOTE | 2019-07-11 11:00 | NUR ---
Direct Admit from [facility] Pt arrived on unit via stretcher and was able to ambulate to bed without difficulty. Pt is a/ox4 with no s/s of distress or SOB. Pt is currently on 4L NC. VS upon admission 134/90, RR 17, HR 70, 98.4 F and no c/o of pain. Will page DR Leiva for orders.
--- NOTE | 2019-07-11 11:54 | NUR ---
Paged Dr Cali Keane MD for orders, spoke to traveling representative from exchange; awaiting call back.
--- NOTE | 2019-07-11 12:41 | NUR ---
Orders Received Spoke with Cali regarding orders; orders given to start pt on all home medications, lasix drip and dobutamine. Will follow through.
[2019-07-11 13:00] VITALS: BP 139/88
[2019-07-11] MEDS ORDERED: MORPHINE SULF INJ 2 MG/ML SYRINGE 1ML IV PRN (13:15)
[2019-07-11] MEDS: FUROSEMIDE INJECTION 500 MG in SODIUM CHL 0.9% 450 ML IV SCH ×2 (13:15→16:11)
[2019-07-11] MEDS ORDERED: NITROGLYCERIN 0.4 MG SL TAB SL PRN (13:15)
[2019-07-11 13:28] VITALS: BP 134/90
--- NOTE | 2019-07-11 14:00 | NUR ---
Contacted Cali Regarding Dobutamine Drip Orders for dobutamine, pt has allergy to dobutamine; made aware. Awaiting message back for further orders. Addendum: 07/11/19 at 1504 by EDMUNDO MCCLURE RN RN New orders for milrinone drip. Will implement orders.
[2019-07-11] MEDS: MILRINONE 20MG/100ML 100 ML IV SCH ×3 (15:15→22:57)
[2019-07-11 15:46] LABS: Basophils # (auto) 0 uL; Eosinophils # (auto) 0.1 uL; Eosinophils % (auto) 1.5 % (0.0-7.0); Lymphocytes # (auto) 0.7 uL; Mean Corpuscular Hgb Conc. 31.7 g/dL (32.0-36.0); Monocytes # (auto) 0.7 uL; Neutrophils # (auto) 3.3 uL
[2019-07-11 15:48] LABS: Basophils % (auto) 0.5 % (0.0-2.0); Hematocrit 44.2 % (41.0-53.0); Monocytes % (auto) 15.4 % (0.0-12.0); Neutrophils % (auto) 67.6 % (37.0-80.0); Nucleated Red Blood Cells % 0.1 %; Platelet Count (auto) 193 10^3/uL (140-450); White Blood Cell 4.8 10^3/uL (4.4-10.8)
[2019-07-11 15:49] LABS: Red Cell Distribution Width 20.9 % (11.8-14.3)
[2019-07-11 16:01] LABS: INR 1.11 (0.9-1.15); Partial Thromboplastin Time 30.3 sec (23.64-32.05)
[2019-07-11 16:10] LABS: BUN/Creatinine Ratio 17.8; Potassium 4.3 mmol/L (3.5-5.1)
--- NOTE | 2019-07-11 16:38 | NUR ---
Pt Is Refusing IV Lasix and Milrinone Attempted to start pt on IV lasix and insert an additional IV for Milrinone; pt refused both. 1 IV was attempted on pt's R FA, and was unsuccessful. After the attempt as well as hooking the lasix drip to the pt's existing IV the Pt stated " I don't got any veins" and "you all are just hurting me and not listening" as well as "take this other IV out". Discussed with pt the need to keep the current IV in; reassured him that his current IV is patent; pt is insistent that it does not work and wishes to have it removed. Discussed with pt the need to start an IV and keep his current IV to receive medications; pt stated that he is aware but does not want it regardless.
[2019-07-11 16:58] VITALS: BP 116/66
[2019-07-11] MEDS ORDERED: WARFARIN SODIUM 2 MG TAB PO SCH (17:00)
--- NOTE | 2019-07-11 17:37 | NUR ---
Contacted Cali about pt's Refusal Notified Cali that pt is refusing the lasix and milrinone. Suggested a mildine placement for tomorrow placement to all for further treatment. Awaiting a response. Addendum: 07/11/19 at 1801 by EDMUNDO MCCLURE RN RN Cali responded back; will place a midline consult for tomorrow morning. Will endorse to NOC brandy
--- NOTE | 2019-07-11 18:03 | NUR ---
Pt Is Upset that He took Coumadin Pt took scheduled Coumadin at 1700. Pt then called for a nurse and stated that he is "upset" that he was given the Coumadin because he is "scheduled to have surgery on Friday". I told the pt that I was unaware of any pending procedures or surgeries for this next week and was not told to hold any medications. Pt stated that he is to have a "catheter" placed. I was not told in report or informed of by Dr Leiva of any procedures or planned surgeries. Upon medicine administration, I provided the pt with information about what medication he was taking as well as the dose. Pt willing took the medication after provided education on medication.
[2019-07-11] MEDS ORDERED: FUROSEMIDE 40 MG TAB PO ONE (18:15)
--- NOTE | 2019-07-11 18:29 | NUR ---
Pt is Upset that he Cannot have his Blood Pressure Medications Right Now Pt is adamant that he needs his blood pressure medications now. I explained that his BP and VS are within normal limits; pt stated "I know my body and I need them". I was able to provide the patient with his Lasix due to him not being on the IV lasix, but pt stated "if you can't give me all of them, I don't want any". Discussed with pt that I am unable to pull the blood pressure medications at this time. Pt then stated "I am going to oliverio you all when I leave here". Will notify charge of pt's upset and continue to monitor pt and needs.
--- NOTE | 2019-07-11 19:55 | NUR ---
Opening Shift Note Assumed care of patient, awake and alert. No S/S of distress/SOB or pain. Instructed on POC and to call for assist PRN, will continue to monitor for changes Q1hr and PRN. Patient upset about not taking his daily medications. I explain to him that they are on schedule for tomorrow morning.
[2019-07-11] MEDS: POTASSIUM CHL 20 Meq TABLET PO SCH (21:54)
[2019-07-11 21:57] VITALS: BP 119/75
--- NOTE | 2019-07-11 22:57 | NUR ---
Patient refused IV medication Milrinone due to not iv access. I educated the patient on the importance IV access. He refused to attempt till tomorrow when the midline is insert.
--- NOTE | 2019-07-12 00:46 | NUR ---
BECKY JACOBSEN ABOUT PATIENT'S HEADACHE 06/01 DUE TO NO PRN PAIN MEDICATION. DOCTOR JACOBSEN ORDER NORCO II PO QID PRN. I ALSO INFORMED OF PATIENT'S CONCERNS OF NOT TAKING HIS DAILY PO MEDS (AMIODARONE, DIGOXIN, AND METOPROLOL), DUE TO NOT BEING ON SCHEDULE TILL TOMORROW AT [address]. DR[address] JACOBSEN SAID TO RESUME. LASTLY, THE PATIENT WANTED ME TO REMIND DR. JACOBSEN OF HIS PROCEDURE FOR FRIDAY. DOCTOR JACOBSEN ORDER TO PUT A COMMUNICATION ORDER TO HOLD COUMADIN. I REPEATED THE ORDERS AND WILL FOLLOW ORDER.
[2019-07-12] MEDS ORDERED: HYDROcodone-ACET 10/325MG TAB PO PRN (01:00)
--- NOTE | 2019-07-12 01:00 | NUR ---
I BECKY DR. JACOBSEN TO INFORM HIM THAT PATIENT IS ALLERGIC TO NORCO. ORDER TO STOP NORCO MEDICATION. HE ORDER TYLENOL 650 PO QID PRN. REPEATED ORDERS TO CONFIRM. WILL FOLLOW ORDER.
[2019-07-12] MEDS: ACETAMINOPHEN 325 MG TAB PO PRN ×3 (01:18→20:38)
[2019-07-12 05:43] VITALS: BP 113/62
[2019-07-12] MEDS: MILRINONE 20MG/100ML 100 ML IV SCH ×3 (06:14→21:38)
[2019-07-12 08:05] VITALS: BP 119/81
[2019-07-12 09:00] VITALS: BP 117/81
--- NOTE | 2019-07-12 09:20 | NUR ---
Opening Shift Note Assumed care of patient, awake and alert. No S/S of distress/SOB or pain. Instructed on POC and to call for assist PRN, will continue to monitor for changes Q1hr and PRN.
[2019-07-12] MEDS: AMIODARONE HCL 200 MG TAB PO SCH (10:18)
[2019-07-12] MEDS: METOPROLOL SUCCINATE XL 50 MG TAB PO SCH (10:19)
[2019-07-12] MEDS: DIGOXIN 0.125 MG TAB PO SCH (10:21)
[2019-07-12] MEDS: POTASSIUM CHL 20 Meq TABLET PO SCH ×2 (10:21→21:37)
[2019-07-12 13:02] VITALS: BP 121/73
--- NOTE | 2019-07-12 14:05 | NUR ---
Midline Placement: Patient educated on need for midline placement. All risks and benefits explained and all questions and concerns addresses prior to procedure. 18g/10cm midline inserted via left cephalic vein using Ultrasound. Sterile technique utilized. Blood return obtained from lumen and flushed easily with NS using proper technique. Midline secured with saline lock; biodisc and occlusive dressing applied. Primary RN notified. Midline lot #[id number]
[2019-07-12] MEDS: FUROSEMIDE INJECTION 500 MG in SODIUM CHL 0.9% 450 ML IV SCH (15:43)
[2019-07-12 17:00] VITALS: BP 121/70
--- NOTE | 2019-07-12 19:50 | NUR ---
Opening Shift Note Assumed care of patient, awake and alert. No S/S of distress/SOB. Patient stated to have a headache 03/31 will administer tylenol prn. Instructed on POC and to call for assist PRN, will continue to monitor for changes Q1hr and PRN.
[2019-07-12 21:00] VITALS: BP 122/61
[2019-07-13 04:30] VITALS: BP 110/56
[2019-07-13] MEDS: MILRINONE 20MG/100ML 100 ML IV SCH ×3 (05:45→21:09)
--- NOTE | 2019-07-13 08:45 | NUR ---
PT C/O NAUSEA DR. JACOBSEN PAGED AND ORDERS RECEIVED FOR ZOFRAN PRN, ORDER INPUT.
[2019-07-13 09:38] VITALS: BP 117/63
[2019-07-13] MEDS: POTASSIUM CHL 20 Meq TABLET PO SCH ×2 (09:55→21:50)
[2019-07-13] MEDS: METOPROLOL SUCCINATE XL 50 MG TAB PO SCH (10:00)
[2019-07-13] MEDS: DIGOXIN 0.125 MG TAB PO SCH (10:00)
[2019-07-13] MEDS: AMIODARONE HCL 200 MG TAB PO SCH (10:00)
[2019-07-13] MEDS: ONDANSETRON HCL 4 MG/2 ML VIAL IV PRN ×2 (10:12→17:13)
[2019-07-13] MEDS: ACETAMINOPHEN 325 MG TAB PO PRN (11:13)
--- NOTE | 2019-07-13 12:45 | NUR ---
PT C/O RIGHT SIDED HEADACHE, NOT RELIEVED BY TYLENOL. ICE THERAPY IMPLEMENTED. PT REPORTS NAUSEA HAS NOT SUBSIDED WITH ZOFRAN ORDER. DR. JACOBSEN PAGED AND MADE AWARE OF PT STATUS.
[2019-07-13 13:00] VITALS: BP 110/73
--- NOTE | 2019-07-13 13:40 | NUR ---
PT SLEEPING AT MOMENT, EFFORTLESS BREATHING ON ROOM AIR. NO S/S OF DISTRESS AT MOMENT. CALL LIGHT WITHIN REACH.
--- NOTE | 2019-07-13 13:53 | NUR ---
ORDERED CT SCAN OF HEAD WITH CONTRAST
--- NOTE | 2019-07-13 15:00 | NUR ---
PER ELECTRONICS MECHANIC APPRENTICE, PT NEEDS CURRENT BMP FOR GFR.
[2019-07-13 16:10] LABS: Potassium 4.6 mmol/L (3.5-5.1)
[2019-07-13 17:00] VITALS: BP 127/72
[2019-07-13] MEDS ORDERED: IOHEXOL 350 MG/ML 100ML IJ ONE (17:55)
[2019-07-13] MEDS: FUROSEMIDE 40 MG TAB PO SCH (18:00)
--- NOTE | 2019-07-13 18:00 | NUR ---
RADIOLOGY STAFF IN TO TRANSPORT PT FOR CT SCAN, PT REFUSED TO CT SCAN; STATES THAT PAIN TO IV SITE ELGIN MIDLINE, C/O PAIN WHEN FLUSHING. PT REFUSES MILRINONE DRIP AT THIS TIME; PT REPORTS THE MEDICATION IS CAUSING SEVERE HEADACHE. EXPLAINED BENEFITS AND RISKS OF THERAPY, PT REFUSES DRIP.
--- NOTE | 2019-07-13 19:50 | NUR ---
Opening Shift Note Assumed care of patient, awake and alert. No S/S of distress/SOB. Patient complain of headache 03/01 but refused pain medications. I inform the patient on the need of new IV for his CT scan procedure. Patient refused IV attempt at the moment but wants to try in the morning. Patient is aware procedure tomorrow. Instructed on POC and to call for assist PRN, will continue to monitor for changes Q1hr and PRN.
[2019-07-13 20:00] VITALS: BP 123/75
[2019-07-13 22:00] VITALS: BP 123/75
[2019-07-14] MEDS: MILRINONE 20MG/100ML 100 ML IV SCH ×3 (04:51→20:15)
[2019-07-14 05:00] VITALS: BP 126/73
[2019-07-14] MEDS: FUROSEMIDE 40 MG TAB PO SCH ×2 (06:09→17:41)
--- NOTE | 2019-07-14 06:20 | NUR ---
IV insertion IV access obtained, via clean sterile technique by inserting 22 gauge catheter at RFA after 1 attempt(s). IV secured properly. No trauma to site. Patient tolerated well.
--- NOTE | 2019-07-14 06:30 | NUR ---
Patient refused CT head scan with contrast. He said "I don't want it, I just want to focus on my homa catch procedure". educated on the importance of the ct scan but still refused.
[2019-07-14 06:44] LABS: INR 1.07 (0.9-1.15); Partial Thromboplastin Time 31.4 sec (23.64-32.05)
--- NOTE | 2019-07-14 07:50 | NUR ---
PATIENT ROUNDS PATIENT SITTING IN BED, NO DISTRESS NOTED. BED IN LOWEST POSITION, SIDE RAILS UP X2, CALL LIGHT WITHIN REACH. WILL CONTINUE TO MONITOR
[2019-07-14 09:00] VITALS: BP 126/74
--- NOTE | 2019-07-14 09:40 | NUR ---
IV removal MIDLINE DC'd with clean sterile technique, catheter fully intact. Pressure dressing applied to site. Patient tolerated well. MIDLINE PAINFUL AND TENDER WHEN FLUSHED. PATIENT REQUESTING TO HAVE IT REMOVED. NOTE:
--- NOTE | 2019-07-14 09:52 | NUR ---
HEAD CT/IV PATIENT STATED THAT HE DOES WANT TO HAVE TO HEAD CT DONE, MIDLINE HAS BEEN REMOVED DUE TO IT NOT WORKING-PATIENT HAS PATENT IV TO RIGHT FA 22G, PATIENT INFORMED THAT IF HE WANTS THE CT WE HAVE TO OBTAIN ANOTHER IV PER PROTOCOL-20 G. PATIENT VERBALIZED UNDERSTANDING BUT STATED HE IS IRRITATED THAT THE WRONG IV SIZE WAS PLACED LAST NIGHT AND WAS ASKING TO SPEAK WITH DR JACOBSEN, LIZBETH TAPIA MD PER PATIENT REQUEST. WILL INFORM MAGNETO SPECIALIST.
[2019-07-14] MEDS: POTASSIUM CHL 20 Meq TABLET PO SCH ×2 (10:00→21:43)
[2019-07-14] MEDS: METOPROLOL SUCCINATE XL 50 MG TAB PO SCH (10:00)
[2019-07-14] MEDS: DIGOXIN 0.125 MG TAB PO SCH (10:00)
[2019-07-14] MEDS: AMIODARONE HCL 200 MG TAB PO SCH (10:00)
--- NOTE | 2019-07-14 10:35 | NUR ---
MIDLINE UPDATED SENIOR PENSIONS ADMINISTRATOR ON NEED FOR MIDLINE OR 20G IV, PLAN FOR MIDLINE PLACEMENT, SENIOR PENSIONS ADMINISTRATOR CALLED AND SPOKE TO MIDLINE RN.
--- NOTE | 2019-07-14 11:53 | NUR ---
Nutrition Assessment Notes please see attached link for complete assessment Estimated need based on ABW (95 kg): 4253-3051 kcal (17-20 kcal/kg BW), 76-95 gms protein (0.8-1.0 g/kg BW r/t elev RFT). Will continue to monitor pertinent labs and reassess nutrient need prn Addendum: 07/14/19 at [address] Amended: Links added.
[2019-07-14 13:00] VITALS: BP 123/75
--- NOTE | 2019-07-14 13:56 | NUR ---
PATIENT OFF UNIT FOR PROCEDURE
[2019-07-14] MEDS ORDERED: ceFAZolin 1GM/50ML 50 ML IV ONE (14:13)
[2019-07-14] MEDS ORDERED: ceFAZolin 1GM VL ONE (14:24)
[2019-07-14] MEDS ORDERED: LIDOCAINE 1% HCL (LOCAL ANESTH.) INJ 20ML MDV ONE (14:24)
[2019-07-14] MEDS ORDERED: HEPARIN 1,000 UNITS/ml 1ML VIAL ONE (14:25)
[2019-07-14] MEDS ORDERED: HEPARIN SODIUM (PORCINE) 5000 UNITS/ML 1ML VIAL ONE (14:25)
[2019-07-14] MEDS ORDERED: LIDOCAINE W/ EPINEPHRINE 1% 20ML VIAL ONE (14:33)
[2019-07-14] MEDS ORDERED: MIDAZOLAM HCL 1MG/1ML-2 ML VIAL ONE (14:43)
[2019-07-14] MEDS ORDERED: fentaNYL CITRATE 100 MCG/2 ML VL ONE (14:53)
[2019-07-14] MEDS ORDERED: HYDROmorphone HCL 2 MG/ML VL IV PRN (15:00)
[2019-07-14] MEDS ORDERED: NALOXONE HCL 0.4 MG/ML VIAL IV PRN (15:00)
[2019-07-14 17:00] VITALS: BP 145/89
--- NOTE | 2019-07-14 19:10 | NUR ---
Opening Shift Note Received report from nemesio Santoro RN. Assumed care of patient, awake and alert. No S/S of distress/SOB or pain. Instructed on POC and to call for assist PRN, will continue to monitor for changes Q1hr and PRN. Bed placed in lowest position and call light within reach.
[2019-07-14 20:00] VITALS: BP 131/86
--- NOTE | 2019-07-14 20:00 | NUR ---
Patient refused Milrinone IV. Patient states " I don't feel good whenever I have that IV medication". Per report from day nurse that patient refused IV Milrinone and is aware.
[2019-07-14 21:39] VITALS: BP 131/84
--- NOTE | 2019-07-14 22:55 | NUR ---
MD Leiva contacted Patient is requesting tramadol for pain to right upper chest, site for newly placed port-a-cath, of 07/01. Awaiting call back.
[2019-07-14] MEDS: ACETAMINOPHEN 325 MG TAB PO PRN (23:19)
--- NOTE | 2019-07-14 23:20 | NUR ---
MD responded Received an order for tramadol 50mg TID PRN. Order noted
[2019-07-15] VITALS (8 sets, daily range): BP systolic 120–135; BP diastolic 79–87
[2019-07-15] MEDS ORDERED: traMADol HCL 50 MG TAB PO PRN (00:30)
[2019-07-15] MEDS: traMADol HCL 50 MG TAB PO PRN ×3 (02:03→18:44)
--- NOTE | 2019-07-15 03:00 | NUR ---
PATIENT HAS BEEN REFUSING MILRINONE IV. DR JACOBSEN MADE AWARE.
[2019-07-15] MEDS: MILRINONE 20MG/100ML 100 ML IV SCH ×3 (03:57→19:21)
[2019-07-15] MEDS: FUROSEMIDE 40 MG TAB PO SCH ×2 (05:47→18:44)
--- NOTE | 2019-07-15 08:00 | NUR ---
Opening Shift Note Assumed care of patient, awake and alertX4. No S/S of distress/SOB .Patient c/o pain at right upper chest port-a-cath site, Rates pain at 8/10, will medicate as prescribed by MD. Bed at lowest locked position and call light within reach. Instructed on POC and to call for assist PRN, will continue to monitor for changes Q1hr and PRN.
[2019-07-15] MEDS: ONDANSETRON HCL 4 MG/2 ML VIAL IV PRN (08:54)
--- NOTE | 2019-07-15 08:55 | NUR ---
Patient c/o nausea. Will medicate per MD orders.
[2019-07-15] MEDS: AMIODARONE HCL 200 MG TAB PO SCH (10:27)
[2019-07-15] MEDS: DIGOXIN 0.125 MG TAB PO SCH (10:28)
[2019-07-15] MEDS: METOPROLOL SUCCINATE XL 50 MG TAB PO SCH (10:29)
[2019-07-15] MEDS: POTASSIUM CHL 20 Meq TABLET PO SCH ×2 (10:30→21:57)
--- NOTE | 2019-07-15 13:57 | NUR ---
IV removal IV DC'd with clean sterile technique, catheter fully intact. Pressure dressing applied to site. Patient tolerated well.
--- NOTE | 2019-07-15 17:30 | NUR ---
Patient refuses IV.
--- NOTE | 2019-07-15 18:30 | NUR ---
Discharge placed on hold until tomorrow due to transportation issues , MD notified.
--- NOTE | 2019-07-15 19:15 | NUR ---
Opening Shift Note Received report from nemesio Celis RN. Assumed care of patient, awake and alert. No S/S of distress/SOB or pain. Instructed on POC and to call for assist PRN, will continue to monitor for changes Q1hr and PRN. Bed placed in lowest position and call light within reach. Patient has no IV and refused to have one placed.
--- NOTE | 2019-07-16 02:00 | NUR ---
ROUNDS PATIENT IS RESTING IN BED WITH EYES CLOSED, NO DISTRESS NOTED.
[2019-07-16] MEDS: MILRINONE 20MG/100ML 100 ML IV SCH ×2 (03:03→10:45)
[2019-07-16] MEDS: FUROSEMIDE 40 MG TAB PO SCH (05:32)
[2019-07-16 06:00] VITALS: BP 114/75
[2019-07-16] MEDS: traMADol HCL 50 MG TAB PO PRN (06:41)
--- NOTE | 2019-07-16 06:44 | NUR ---
ROUNDS PAIN MEDICATION GIVEN PER PATIENT REQUEST. PATIENT IS ALERT AND AWAKE, NO DISTRESS NOTED.
[2019-07-16 08:00] VITALS: BP 116/78
--- NOTE | 2019-07-16 08:00 | NUR ---
OPENING SHIFT NOTE ASSUMED CARE OF PATIENT AWAKE AND ALERT X4. NO SIGNS AND SYMPTOMS OF DISTRESS/SOB. NO COMPLAINTS OF PAIN AT THIS TIME. BED IN LOWEST LOCKED POSITION,SIDERAILS UP X2, AND CALL LIGHT WITHIN REACH. INSTRUCTED PATIENT ON POC AND TO CALL FOR ASSISTANCE PRN, WILL CONTINUE TO MONITOR Q1HR AND PRN.
[2019-07-16] MEDS: METOPROLOL SUCCINATE XL 50 MG TAB PO SCH (08:39)
[2019-07-16] MEDS: POTASSIUM CHL 20 Meq TABLET PO SCH (08:39)
[2019-07-16] MEDS: AMIODARONE HCL 200 MG TAB PO SCH (08:39)
[2019-07-16] MEDS: DIGOXIN 0.125 MG TAB PO SCH (08:40)
[2019-07-16 09:00] VITALS: BP 121/75
[2019-07-16 12:00] VITALS: BP 114/81
[2019-07-16] MEDS: ACETAMINOPHEN 325 MG TAB PO PRN (12:21)
--- NOTE | 2019-07-16 13:45 | NUR ---
Discharge instructions given as ordered. Encourage to follow up with PMD as instructed. All questions and concerns addressed. Patient verbalized understanding. Medication reconciliation form completed and copy given to patient. Telemetry unit returned to ICU. Patient taken to vehicle via wheelchair with all personal belongings, accompanied by staff and Claus from onsite transportation , No distress noted at time of departure.
--- NOTE | 2019-07-16 17:27 | NUR ---
assessment Patient has no post discharge needs identified. Addendum: 07/16/19 at 1728 by Bren SCHRADER Amended: Links added.
--- NOTE | 2019-07-16 17:39 | NUR ---
Discharge planning per SS consult, patient has orders for transportation home. Request sent to [facility], received a call from Marta and advised that they will pick patient up at 1:30pm. Nurse Celis was advised of dc plan.
== END 2019-07-16 14:00 | disposition home or self-care (01) | DRG 293 ==
LOC: TELE-WESTW 10:55
PROVIDERS: ADMIT Internal Medicine Cardiovascular Disease; ATTEND Internal Medicine Cardiovascular Disease
PROC: 02HV33Z Insertion of Infusion Device into Superior Vena Cava, Percutaneous Approach (ICD-10-PCS; principal; 2019-07-14 14:32)
DX: I11.0 Hypertensive heart disease with heart failure (principal); I50.43 Acute on chronic combined systolic (congestive) and diastolic (congestive) heart failure; I42.0 Dilated cardiomyopathy; I25.10 Atherosclerotic heart disease of native coronary artery without angina pectoris; I73.9 Peripheral vascular disease, unspecified; E66.9 Obesity, unspecified; R51 Headache; Z91.19 Patient's noncompliance with other medical treatment and regimen; Z95.810 Presence of automatic (implantable) cardiac defibrillator; Z68.38 Body mass index [BMI] 38.0-38.9, adult; Z88.5 Allergy status to narcotic agent; Z88.8 Allergy status to other drugs, medicaments and biological substances; Z91.012 Allergy to eggs
CPT/HCPCS: 36415; 71045; 80048; 85025; 85610; 85730; 86850; 86900; 86901; 87081; C1788; G0378; J0690; J2001; J2250; J2405

== ENCOUNTER → 2019-07-20 | Outpatient (CLI) | payer MEDICARE, MEDICAID ==
--- NOTE | 2019-07-20 09:00 | NUR ---
CHF PT ARRIVED AT THE CHF CLINIC FOR POST HOSPITAL STAY VISIT. PT PRESENTED A/O X 4 0 DISTRESS. VSS LABS SENT
[2019-07-20 09:44] VITALS: BP 143/97
--- NOTE | 2019-07-20 09:45 | NUR ---
Discharge Instructions See e-MAR for any mediations given with this visit. Patient education given on disease process. Patient verbalized understanding. Previous labs reviewed. Patient discharged in stable condition with after care instructions and follow up appointment. PT HAS MD JACOBSEN APPOINTMENT TOMORROW WILL COME TO CHF CLINIC AFTER AND ARRANGE NEXT WEEK VISITS
[2019-07-20 12:08] LABS: BUN/Creatinine Ratio 14.1; Calcium 9.3 mg/dL (8.5-10.1); Magnesium 2.3 mg/dL (1.6-2.6)
== END | disposition home or self-care (01) ==
LOC: CHF HDHVI 09:26
PROVIDERS: ATTEND Internal Medicine Cardiovascular Disease
DX: I11.0 Hypertensive heart disease with heart failure (principal); I50.9 Heart failure, unspecified; E83.40 Disorders of magnesium metabolism, unspecified
CPT/HCPCS: 36415; 80048; 83735; 83880; G0463

== ENCOUNTER → 2019-07-27 | Outpatient (CLI) | payer MEDICARE, MEDICAID ==
[2019-07-27 10:25] VITALS: BP 123/80
--- NOTE | 2019-07-27 10:25 | NUR ---
Discharge Instructions See e-MAR for any mediations given with this visit. Patient education given on disease process. Patient verbalized understanding. Previous labs reviewed. Patient discharged in stable condition with after care instructions and follow up appointment. NOTE DRESSING TO R UPPER CHEST COVERING PORT-A-CATH REMOVED AND SITE CLEANED BY BARBARA HARDY. PATIENT TOLERATED WELL.
[2019-07-27 12:39] LABS: BUN/Creatinine Ratio 17.2; Calcium 8.9 mg/dL (8.5-10.1); Potassium 4.2 mmol/L (3.5-5.1)
== END | disposition home or self-care (01) ==
LOC: CHF HDHVI 08:48
PROVIDERS: ATTEND Internal Medicine Cardiovascular Disease
DX: I11.0 Hypertensive heart disease with heart failure (principal); I50.9 Heart failure, unspecified
CPT/HCPCS: 36415; 80048; 83880; G0463

== ENCOUNTER → 2019-07-29 | Outpatient (CLI) | payer MEDICARE, MEDICAID ==
[~2019-07-29] VITALS: Ht 30.5 cm; Wt 114.3 kg
[2019-07-29] VITALS (12 sets, daily range): BP systolic 101–129; BP diastolic 64–82
[~2019-07-29] MED LIST changes: +FUROSEMIDE 100 MG/10ML VIAL IV ONE; +FUROSEMIDE INJECTION 10 ML ONE; +MILRINONE 20MG/100ML 100 ML IV ONE; +MILRINONE 20MG/100ML 100 ML IV SCH; +POTASSIUM CHL 20 Meq TABLET PO ONE; +SODIUM CHLORIDE 0.9% 100 ML IV ONE
--- NOTE | 2019-07-29 08:40 | NUR ---
Clinic Provider Clinic Provider UPDATED ON PT STATUS new orders received and carried out. MILRINONE DRIP gtt started at {0.375}mcg/kg/hr per MD order.
--- NOTE | 2019-07-29 08:40 | NUR ---
CHF PT ARRIVED AT THE CHF CLINIC FOR TX AND FOLLOW UP. PT A/O X 4 0 DISTRESS
--- NOTE | 2019-07-29 09:30 | NUR ---
Mary Jane Cath Insertion 20 gauge Mary Jane Cath inserted using sterile technique in the R upper chest with occlusive dressing over qualres needle. Patient tolerated procedure well. Ordered labs drawn and sent. See e-MAR for medications given during this visit.
--- NOTE | 2019-07-29 14:12 | NUR ---
Mary Jane Cath Removal Horowitz needle D/C'd after Heparin flush per protocol. See e-MAR for medications given during this visit. Sterile occlusive dressing to site. Patient tolerated procedure well. Site benign post infusion.
--- NOTE | 2019-07-29 14:15 | NUR ---
Discharge Instructions See e-MAR for any mediations given with this visit. Patient education given on disease process. Patient verbalized understanding. Previous labs reviewed. Patient discharged in stable condition with after care instructions and follow up appointment. MEDICATIONS MILRINONE DRIP IV HEPARIN IVP LASIX IV POTASSIUM PO
[2019-07-29 15:38] LABS: Potassium 3.9 mmol/L (3.5-5.1)
[2019-07-29 15:59] LABS: INR 1.06 (0.9-1.15)
== END | disposition home or self-care (01) ==
LOC: CHF HDHVI 08:59
PROVIDERS: ATTEND Internal Medicine Cardiovascular Disease
DX: I13.0 Hypertensive heart and chronic kidney disease with heart failure and stage 1 through stage 4 chronic kidney disease, or unspecified chronic kidney disease (principal); I50.42 Chronic combined systolic (congestive) and diastolic (congestive) heart failure; N18.9 Chronic kidney disease, unspecified; I25.10 Atherosclerotic heart disease of native coronary artery without angina pectoris; I48.91 Unspecified atrial fibrillation; E87.6 Hypokalemia; R94.4 Abnormal results of kidney function studies; J44.9 Chronic obstructive pulmonary disease, unspecified; J18.9 Pneumonia, unspecified organism; F41.9 Anxiety disorder, unspecified; E78.5 Hyperlipidemia, unspecified; E66.9 Obesity, unspecified; Z68.38 Body mass index [BMI] 38.0-38.9, adult; Z86.73 Personal history of transient ischemic attack (TIA), and cerebral infarction without residual deficits; Z95.810 Presence of automatic (implantable) cardiac defibrillator
CPT/HCPCS: 36415; 82565; 84132; 84520; 85610; 85730; 96365; 96366; 96367; G0463; J1642; J1940; J2260

== ENCOUNTER → 2019-08-03 | Outpatient (CLI) | payer MEDICARE, MEDICAID ==
[2019-08-03] VITALS (11 sets, daily range): BP systolic 112–152; BP diastolic 56–90
[~2019-08-03] MED LIST changes: -FUROSEMIDE INJECTION 10 ML ONE; -MILRINONE 20MG/100ML 100 ML IV SCH; +POTASSIUM CHL 10 Meq TABLET PO ONE
--- NOTE | 2019-08-03 09:02 | NUR ---
CHF PT ARRIVED AT THE CHF CLINIC FOR TREATMENT AND FOLLOW UP. A/O X 4 VSS WEIGHT UP 3LBS
--- NOTE | 2019-08-03 09:05 | NUR ---
Mary Jane Cath Insertion 20 gauge Mary Jane Cath inserted using sterile technique in the upper chest with occlusive dressing over quarles needle. Patient tolerated procedure well. Ordered labs drawn and sent. See e-MAR for medications given during this visit.
[2019-08-03 11:46] LABS: Basophils # (auto) 0 uL; Eosinophils # (auto) 0.1 uL; Monocytes # (auto) 0.6 uL; Neutrophils # (auto) 3.1 uL; Nucleated Red Blood Cells % 0.1 %
[2019-08-03 11:49] LABS: Basophils % (auto) 0.5 % (0.0-2.0); Hematocrit 43.9 % (41.0-53.0); Lymphocytes # (auto) 1.1 uL; Lymphocytes % (auto) 23.2 % (10.0-50.0); Mean Corpuscular Hemoglobin 25.6 pg (28.0-32.0); Mean Corpuscular Hgb Conc. 31.8 g/dL (32.0-36.0); Mean Corpuscular Volume 80.5 fL (80.0-100.0); Monocytes % (auto) 11.6 % (0.0-12.0); Neutrophils % (auto) 62.7 % (37.0-80.0); Platelet Count (auto) 213 10^3/uL (140-450); Red Blood Cells 5.45 10^6/uL (4.5-5.90); Red Cell Distribution Width 20.3 % (11.8-14.3)
[2019-08-03 11:57] LABS: BUN/Creatinine Ratio 17.8; Calcium 9.2 mg/dL (8.5-10.1); Magnesium 2.3 mg/dL (1.6-2.6); Potassium 4.3 mmol/L (3.5-5.1)
--- NOTE | 2019-08-03 13:33 | NUR ---
Mary Jane Cath Removal Horowitz needle D/C'd after Heparin flush per protocol. See e-MAR for medications given during this visit. Sterile occlusive dressing to site. Patient tolerated procedure well. Site benign post infusion. by AGUILAR HARDY
--- NOTE | 2019-08-03 13:35 | NUR ---
Discharge Instructions See e-MAR for any mediations given with this visit. Patient education given on disease process. Patient verbalized understanding. Previous labs reviewed. Patient discharged in stable condition with after care instructions and follow up appointment. MEDICATIONS MILRINONE DRIP [id number] HEPARIN IVP POTASSIUM PO
== END | disposition home or self-care (01) ==
LOC: CHF HDHVI 09:25
PROVIDERS: ATTEND Internal Medicine Cardiovascular Disease
DX: I13.0 Hypertensive heart and chronic kidney disease with heart failure and stage 1 through stage 4 chronic kidney disease, or unspecified chronic kidney disease (principal); I50.42 Chronic combined systolic (congestive) and diastolic (congestive) heart failure; N18.9 Chronic kidney disease, unspecified; I25.10 Atherosclerotic heart disease of native coronary artery without angina pectoris; I48.91 Unspecified atrial fibrillation; E83.40 Disorders of magnesium metabolism, unspecified; D64.9 Anemia, unspecified; R60.9 Edema, unspecified; F41.9 Anxiety disorder, unspecified; J44.9 Chronic obstructive pulmonary disease, unspecified; E78.5 Hyperlipidemia, unspecified; E66.9 Obesity, unspecified; Z68.38 Body mass index [BMI] 38.0-38.9, adult; Z86.73 Personal history of transient ischemic attack (TIA), and cerebral infarction without residual deficits; Z95.810 Presence of automatic (implantable) cardiac defibrillator
CPT/HCPCS: 36415; 80048; 83735; 83880; 85025; 96365; 96366; G0463; J1642; J2260

== ENCOUNTER → 2019-08-05 | Outpatient (CLI) | payer MEDICARE, MEDICAID ==
[2019-08-05] VITALS (12 sets, daily range): BP systolic 104–132; BP diastolic 62–82
[~2019-08-05] VITALS: Ht 33 cm; Wt 116.6 kg
[~2019-08-05] MED LIST changes: +BUMETANIDE 2.5mg/10ml (0.25 mg/ml) INJ IV ONE; +BUMETANIDE INJECTION 10 ML ONE; -FUROSEMIDE 100 MG/10ML VIAL IV ONE; -SODIUM CHLORIDE 0.9% 100 ML IV ONE; +metOLazone 5 MG TAB ONE; +metOLazone 5 MG TAB PO ONE
--- NOTE | 2019-08-05 08:50 | NUR ---
CHF PT ARRIVED AT THE CHF CLINIC FOR TX AND FOLLOW UP. 0 DISTRESS WEIGHT STABLE VSS. A/O X 4
--- NOTE | 2019-08-05 09:21 | NUR ---
Mary Jane Cath Insertion 20 gauge Mary Jane Cath inserted using sterile technique in the R upper chest with occlusive dressing over quarles needle. Patient tolerated procedure well. Ordered labs drawn and sent. See e-MAR for medications given during this visit.
[2019-08-05 12:11] LABS: Potassium 4.3 mmol/L (3.5-5.1)
--- NOTE | 2019-08-05 13:35 | NUR ---
Discharge Instructions See e-MAR for any mediations given with this visit. Patient education given on disease process. Patient verbalized understanding. Previous labs reviewed. Patient discharged in stable condition with after care instructions and follow up appointment. MEDICATIONS MILRINONE DRIP [id number] HEPARIN IVP BUMEX IVP POTASSIUM PO METALAZONE PO PT WEIGHT STEADILY INCREASING, DISCUSSED DIETARY EXPECTATIONS PT VERBALIZED UNDERSTANDING. REVIEWED LABS PT VERBALIZED UNDERSTANDING
== END | disposition home or self-care (01) ==
LOC: CHF HDHVI 09:08
PROVIDERS: ATTEND Internal Medicine Cardiovascular Disease
DX: E87.6 Hypokalemia (principal); R94.4 Abnormal results of kidney function studies; I50.9 Heart failure, unspecified; L03.116 Cellulitis of left lower limb; L03.115 Cellulitis of right lower limb; Z88.5 Allergy status to narcotic agent; Z91.018 Allergy to other foods; Z91.048 Other nonmedicinal substance allergy status
CPT/HCPCS: 36415; 82565; 84132; 84520; 96365; 96366; 96375; G0463; J1642; J2260

== ENCOUNTER → 2019-08-10 | Outpatient (CLI) | payer MEDICARE, MEDICAID ==
[2019-08-10] VITALS (7 sets, daily range): BP systolic 116–138; BP diastolic 65–80
[~2019-08-10] MED LIST changes: +MILRINONE 20MG/100ML 100 ML IV SCH
--- NOTE | 2019-08-10 08:45 | NUR ---
CHF PT ARRIVED AT THE CHF CLINIC FOR TX AND F/U/ A/O X 4 0 DISTRESS VSS
--- NOTE | 2019-08-10 09:15 | NUR ---
Colt Cath Insertion 20 gauge Colt Cath inserted using sterile technique in the upper chest with occlusive dressing over quarles needle. Patient tolerated procedure well. Ordered labs drawn and sent. See e-MAR for medications given during this visit. ATTEMPTED ACCESS TWICE BOTH TIMES NO BLOOD RETURN BUT PATIENT PORT FLUSHED EASILY Addendum: 08/10/19 at 1018 by ABHILASH DIAMOND RN WI PT HAS A YELLOW STITCH PROTRUDING FROM SKIN BY COLT CATH INSERTION SITE. MD DAVIS REFERRED PATIENT BACK TO DR CORNEJO THE WHO PLACED PORT PT VERBALIZED UNDERSTANDING
--- NOTE | 2019-08-10 09:20 | NUR ---
CARDIODYNAMIC CARDIODYNAMICS COMPLETE AND SHOWS IMPROVEMENT. DISCUSSED RESULTS WITH PATIENT, VERBALIZED UNDERSTANDING
--- NOTE | 2019-08-10 13:45 | NUR ---
Discharge Instructions See e-MAR for any mediations given with this visit. Patient education given on disease process. Patient verbalized understanding. Previous labs reviewed. Patient discharged in stable condition with after care instructions and follow up appointment. MEDICATIONS MILRINONE DRIP [id number] METOLAZONE PO POTASSIUM PO BUMEX IVP HEPARIN IVP
== END | disposition home or self-care (01) ==
LOC: CHF HDHVI 08:57
PROVIDERS: ATTEND Internal Medicine Cardiovascular Disease
DX: I13.0 Hypertensive heart and chronic kidney disease with heart failure and stage 1 through stage 4 chronic kidney disease, or unspecified chronic kidney disease (principal); I50.42 Chronic combined systolic (congestive) and diastolic (congestive) heart failure; N18.9 Chronic kidney disease, unspecified; I25.10 Atherosclerotic heart disease of native coronary artery without angina pectoris; I48.91 Unspecified atrial fibrillation; J44.9 Chronic obstructive pulmonary disease, unspecified; F41.9 Anxiety disorder, unspecified; E78.5 Hyperlipidemia, unspecified; E66.9 Obesity, unspecified; Z68.38 Body mass index [BMI] 38.0-38.9, adult; Z95.810 Presence of automatic (implantable) cardiac defibrillator; Z86.73 Personal history of transient ischemic attack (TIA), and cerebral infarction without residual deficits
CPT/HCPCS: 93701; 96365; 96366; 96375; G0463; J1642; J2260

== ENCOUNTER → 2019-08-12 | Outpatient (CLI) | payer MEDICARE, MEDICAID ==
[~2019-08-12] MED LIST changes: -BUMETANIDE 2.5mg/10ml (0.25 mg/ml) INJ IV ONE; -BUMETANIDE INJECTION 10 ML ONE; -MILRINONE 20MG/100ML 100 ML IV SCH; -POTASSIUM CHL 10 Meq TABLET PO ONE; -POTASSIUM CHL 20 Meq TABLET PO ONE; -metOLazone 5 MG TAB ONE; -metOLazone 5 MG TAB PO ONE
[2019-08-12 09:35] VITALS: BP 124/84
[2019-08-12 09:45] VITALS: BP 125/74
[2019-08-12 10:15] VITALS: BP 145/76
[2019-08-12 10:30] VITALS: BP 126/75
[2019-08-12 12:16] LABS: Potassium 3.6 mmol/L (3.5-5.1)
[2019-08-12 12:25] LABS: BUN/Creatinine Ratio 20.6; Calcium 9.2 mg/dL (8.5-10.1); Magnesium 2.5 mg/dL (1.6-2.6)
[2019-08-12 13:20] VITALS: BP 153/84
--- NOTE | 2019-08-12 13:20 | NUR ---
CHF Clinic Discharge Instructions See e-MAR for any mediations given with this visit. Patient education given on disease process. Patient verbalized understanding. Previous labs reviewed. Patient discharged in stable condition with after care instructions and follow up appointment. Note Milrinone [id number], [id number] admin by Marjorie HARDY. Heparin admin by Marjorie HARDY.
== END | disposition home or self-care (01) ==
LOC: CHF HDHVI 09:29
PROVIDERS: ATTEND Internal Medicine Cardiovascular Disease
DX: I13.0 Hypertensive heart and chronic kidney disease with heart failure and stage 1 through stage 4 chronic kidney disease, or unspecified chronic kidney disease (principal); E11.22 Type 2 diabetes mellitus with diabetic chronic kidney disease; N18.9 Chronic kidney disease, unspecified; I50.32 Chronic diastolic (congestive) heart failure; I48.91 Unspecified atrial fibrillation; I42.9 Cardiomyopathy, unspecified; I73.9 Peripheral vascular disease, unspecified; M10.9 Gout, unspecified; F41.9 Anxiety disorder, unspecified; J44.9 Chronic obstructive pulmonary disease, unspecified; E78.5 Hyperlipidemia, unspecified; E66.9 Obesity, unspecified; Z95.810 Presence of automatic (implantable) cardiac defibrillator; Z86.73 Personal history of transient ischemic attack (TIA), and cerebral infarction without residual deficits; Z79.899 Other long term (current) drug therapy
CPT/HCPCS: 36415; 80048; 83735; 83880; 93306; 96365; 96366; G0463; J1642; J2260

== ENCOUNTER → 2019-08-17 | Outpatient (CLI) | payer MEDICARE, MEDICAID ==
[2019-08-17] VITALS (9 sets, daily range): BP systolic 120–137; BP diastolic 63–79
[~2019-08-17] MED LIST changes: +BUMETANIDE 2.5mg/10ml (0.25 mg/ml) INJ IV ONE; +BUMETANIDE INJECTION 10 ML ONE; +POTASSIUM CHL 10 Meq TABLET PO ONE; +POTASSIUM CHL 20 Meq TABLET PO ONE; +metOLazone 5 MG TAB ONE; +metOLazone 5 MG TAB PO ONE
--- NOTE | 2019-08-17 08:41 | NUR ---
CHF PT ARRIVED TO THE CHF CLINIC FOR TX AND F/U 0 DISTRESS VSS.
--- NOTE | 2019-08-17 09:35 | NUR ---
Mary Jane Cath Insertion 20 gauge Mary Jane Cath inserted using sterile technique in the upper chest with occlusive dressing over quarles needle. Patient tolerated procedure well. Ordered labs drawn and sent. See e-MAR for medications given during this visit. PT HAD SOME PAIN WHEN FLUSHED THE FIRST TIME WANTED NEEDLE REMOVED. REMOVED NEEDLE LET PATIENT REST. RETRIED SLOWLY AND OBTAINED EXCELLENT BLOOD RETURN WITH NO PAIN.
[2019-08-17 10:26] LABS: Basophils # (auto) 0 uL; Eosinophils # (auto) 0.1 uL; Lymphocytes # (auto) 1.1 uL; Lymphocytes % (auto) 17.4 % (10.0-50.0)
[2019-08-17 10:28] LABS: Basophils % (auto) 0.5 % (0.0-2.0); Eosinophils % (auto) 1.3 % (0.0-7.0); Hematocrit 42.3 % (41.0-53.0); Hemoglobin 13.5 g/dL (13.5-17.5); Mean Corpuscular Hemoglobin 25.5 pg (28.0-32.0); Mean Corpuscular Hgb Conc. 31.9 g/dL (32.0-36.0); Mean Corpuscular Volume 80.1 fL (80.0-100.0); Monocytes # (auto) 0.5 uL; Monocytes % (auto) 8.4 % (0.0-12.0); Neutrophils # (auto) 4.4 uL; Neutrophils % (auto) 72.4 % (37.0-80.0); Platelet Count (auto) 202 10^3/uL (140-450); Red Blood Cells 5.27 10^6/uL (4.5-5.90); White Blood Cell 6.1 10^3/uL (4.4-10.8)
[2019-08-17 10:31] LABS: BUN/Creatinine Ratio 16.4; Calcium 8.8 mg/dL (8.5-10.1); Magnesium 2.2 mg/dL (1.6-2.6); Potassium 3.7 mmol/L (3.5-5.1)
[2019-08-17 10:37] LABS: Red Cell Distribution Width 20.4 % (11.8-14.3)
--- NOTE | 2019-08-17 13:59 | NUR ---
Discharge Instructions See e-MAR for any mediations given with this visit. Patient education given on disease process. Patient verbalized understanding. Previous labs reviewed. Patient discharged in stable condition with after care instructions and follow up appointment. MEDICATIONS MILRINONE DRIP [id number] HEPARIN IVP METOLAZONE PO BUMEX 2MG IVP POTASSIUM PO
== END | disposition home or self-care (01) ==
LOC: CHF HDHVI 08:57
PROVIDERS: ATTEND Internal Medicine Cardiovascular Disease
DX: I13.0 Hypertensive heart and chronic kidney disease with heart failure and stage 1 through stage 4 chronic kidney disease, or unspecified chronic kidney disease (principal); I50.42 Chronic combined systolic (congestive) and diastolic (congestive) heart failure; N18.9 Chronic kidney disease, unspecified; I25.10 Atherosclerotic heart disease of native coronary artery without angina pectoris; I48.91 Unspecified atrial fibrillation; F41.9 Anxiety disorder, unspecified; J44.9 Chronic obstructive pulmonary disease, unspecified; E78.5 Hyperlipidemia, unspecified; E66.9 Obesity, unspecified; Z68.38 Body mass index [BMI] 38.0-38.9, adult; Z95.810 Presence of automatic (implantable) cardiac defibrillator; Z86.73 Personal history of transient ischemic attack (TIA), and cerebral infarction without residual deficits; Z79.899 Other long term (current) drug therapy
CPT/HCPCS: 36415; 80048; 83735; 83880; 85025; 96365; 96366; 96375; G0463; J1642; J2260

== ENCOUNTER → 2019-08-26 | Outpatient (CLI) | payer MEDICARE, MEDICAID ==
[2019-08-26] VITALS (8 sets, daily range): BP systolic 114–132; BP diastolic 55–72
[~2019-08-26] MED LIST changes: -BUMETANIDE 2.5mg/10ml (0.25 mg/ml) INJ IV ONE; -BUMETANIDE INJECTION 10 ML ONE; -MILRINONE 20MG/100ML 100 ML IV ONE; +MILRINONE 20MG/100ML 100 ML IV SCH; -POTASSIUM CHL 10 Meq TABLET PO ONE; -POTASSIUM CHL 20 Meq TABLET PO ONE; -metOLazone 5 MG TAB ONE; -metOLazone 5 MG TAB PO ONE
--- NOTE | 2019-08-26 09:00 | NUR ---
CHF PT A/O X 4 0 DISTRESS INTO THE CLINIC FOR TX AND EVAL. VSS 0 DISTRESS
[2019-08-26 12:15] LABS: Basophils # (auto) 0 uL; Eosinophils # (auto) 0.1 uL; Hemoglobin 13.5 g/dL (13.5-17.5); Lymphocytes # (auto) 0.9 uL; Monocytes # (auto) 0.5 uL; White Blood Cell 5.7 10^3/uL (4.4-10.8)
[2019-08-26 12:18] LABS: Basophils % (auto) 0.5 % (0.0-2.0); Eosinophils % (auto) 1.3 % (0.0-7.0); Hematocrit 42.7 % (41.0-53.0); Lymphocytes % (auto) 15.3 % (10.0-50.0); Mean Corpuscular Hemoglobin 25.6 pg (28.0-32.0); Mean Corpuscular Hgb Conc. 31.6 g/dL (32.0-36.0); Monocytes % (auto) 8.5 % (0.0-12.0); Neutrophils # (auto) 4.3 uL; Neutrophils % (auto) 74.4 % (37.0-80.0); Nucleated Red Blood Cells % 0.2 %; Platelet Count (auto) 208 10^3/uL (140-450); Red Blood Cells 5.27 10^6/uL (4.5-5.90)
[2019-08-26 12:22] LABS: BUN/Creatinine Ratio 12.8; Calcium 9.2 mg/dL (8.5-10.1); Magnesium 2.4 mg/dL (1.6-2.6); Potassium 4.3 mmol/L (3.5-5.1)
[2019-08-26 12:30] LABS: Red Cell Distribution Width 20.3 % (11.8-14.3)
--- NOTE | 2019-08-26 13:30 | NUR ---
Discharge Instructions See e-MAR for any mediations given with this visit. Patient education given on disease process. Patient verbalized understanding. Previous labs reviewed. Patient discharged in stable condition with after care instructions and follow up appointment. MEDICATIONS MILRINONE DRIP [id number] HEPARIN 500 UNITS IVP
== END | disposition home or self-care (01) ==
LOC: CHF HDHVI 09:01
PROVIDERS: ATTEND Internal Medicine Cardiovascular Disease
DX: I13.0 Hypertensive heart and chronic kidney disease with heart failure and stage 1 through stage 4 chronic kidney disease, or unspecified chronic kidney disease (principal); E11.22 Type 2 diabetes mellitus with diabetic chronic kidney disease; I50.42 Chronic combined systolic (congestive) and diastolic (congestive) heart failure; N18.9 Chronic kidney disease, unspecified; I25.10 Atherosclerotic heart disease of native coronary artery without angina pectoris; I48.91 Unspecified atrial fibrillation; E29.1 Testicular hypofunction; K90.9 Intestinal malabsorption, unspecified; I73.9 Peripheral vascular disease, unspecified; F41.9 Anxiety disorder, unspecified; J44.9 Chronic obstructive pulmonary disease, unspecified; E66.9 Obesity, unspecified; Z86.73 Personal history of transient ischemic attack (TIA), and cerebral infarction without residual deficits; Z95.810 Presence of automatic (implantable) cardiac defibrillator; Z79.899 Other long term (current) drug therapy
CPT/HCPCS: 36415; 80048; 82306; 83036; 83735; 83880; 84403; 85025; 85610; 96365; 96366; G0463; J1642

== ENCOUNTER → 2019-08-31 | Outpatient (CLI) | payer MEDICARE, MEDICAID ==
[~2019-08-31] MED LIST changes: +BUMETANIDE 1mg/4ml VIAL (0.25mg/ml) ONE; +BUMETANIDE 2.5mg/10ml (0.25 mg/ml) INJ IV ONE; +DIGO0.12 PO; -DIGO0.1262 PO; -METO25TA62 PO; +METO25TA93 PO; +MILRINONE 20MG/100ML 100 ML IV ONE; -MILRINONE 20MG/100ML 100 ML IV SCH; +POTASSIUM CHL 10 Meq TABLET PO ONE; +POTASSIUM CHL 20 Meq TABLET PO ONE; +metOLazone 5 MG TAB ONE; +metOLazone 5 MG TAB PO ONE
--- NOTE | 2019-08-31 08:56 | NUR ---
CHF PT ARRIVED TO THE CHF CLINIC FOR TX AND EVAL. PT A/O X 4 O DISTRESS VSS
--- NOTE | 2019-08-31 09:00 | NUR ---
Clinic Provider Clinic Provider updated on pt status new orders received and carried out. Milrinone Drip gtt started at {0.375}mcg/kg/hr per MD order.
[2019-08-31 11:58] LABS: Potassium 4.2 mmol/L (3.5-5.1)
[2019-08-31 12:03] LABS: Magnesium 2.4 mg/dL (1.6-2.6)
[2019-08-31 13:20] VITALS: BP 110/57
--- NOTE | 2019-08-31 13:20 | NUR ---
Discharge Instructions See e-MAR for any mediations given with this visit. Patient education given on disease process. Patient verbalized understanding. Previous labs reviewed. Patient discharged in stable condition with after care instructions and follow up appointment. MEDICATIONS MILRINONE DRIP [id number] HEPARIN IVP X 1 METOLAZONE PO BUMEX IVP POTASSIUM PO INR COMPLETE INR 1.3 SCRIPT CALLED IN FOR PLAVIX 75 MG PO DAILY PATIENT STATED HE WILL PICK IT UP. ALSO HAD COUMADIN INCREASED TO 4MG PO TILL INR CHECKED ON FRIDAY
== END | disposition home or self-care (01) ==
LOC: CHF HDHVI 09:23
PROVIDERS: ATTEND Internal Medicine Cardiovascular Disease
DX: I13.0 Hypertensive heart and chronic kidney disease with heart failure and stage 1 through stage 4 chronic kidney disease, or unspecified chronic kidney disease (principal); E11.22 Type 2 diabetes mellitus with diabetic chronic kidney disease; N18.9 Chronic kidney disease, unspecified; I50.42 Chronic combined systolic (congestive) and diastolic (congestive) heart failure; I25.10 Atherosclerotic heart disease of native coronary artery without angina pectoris; I48.91 Unspecified atrial fibrillation; I73.9 Peripheral vascular disease, unspecified; I42.8 Other cardiomyopathies; R94.4 Abnormal results of kidney function studies; E87.6 Hypokalemia; E83.40 Disorders of magnesium metabolism, unspecified; J44.9 Chronic obstructive pulmonary disease, unspecified; E78.5 Hyperlipidemia, unspecified; E66.9 Obesity, unspecified; Z68.38 Body mass index [BMI] 38.0-38.9, adult; Z95.810 Presence of automatic (implantable) cardiac defibrillator; Z86.73 Personal history of transient ischemic attack (TIA), and cerebral infarction without residual deficits; Z79.899 Other long term (current) drug therapy
CPT/HCPCS: 36415; 82565; 83735; 84132; 84520; 85610; 96365; 96366; 96375; G0463; J1642; J2260; J3490

== ENCOUNTER → 2019-09-02 | Outpatient (CLI) | payer MEDICARE, MEDICAID ==
[~2019-09-02] MED LIST changes: -BUMETANIDE 1mg/4ml VIAL (0.25mg/ml) ONE; -BUMETANIDE 2.5mg/10ml (0.25 mg/ml) INJ IV ONE; -POTASSIUM CHL 10 Meq TABLET PO ONE; -POTASSIUM CHL 20 Meq TABLET PO ONE; -metOLazone 5 MG TAB ONE; -metOLazone 5 MG TAB PO ONE
--- NOTE | 2019-09-02 08:57 | NUR ---
CHF PT ARRIVED AT THE CLINIC FOR WEEKLY TREATMENT AND EVALUATION/ A/O X 4 0 DISTRESS
--- NOTE | 2019-09-02 08:57 | NUR ---
Clinic Provider Clinic Provider updated about patient status new orders received and carried out. Milrinone gtt started at {0.375}mcg/kg/hr per MD order.
[2019-09-02 09:48] VITALS: BP 119/84
[2019-09-02 10:00] VITALS: BP 117/76
[2019-09-02 10:15] VITALS: BP 122/56
[2019-09-02 10:30] VITALS: BP 111/68
[2019-09-02 11:00] VITALS: BP 113/63
[2019-09-02 12:07] LABS: Magnesium 2.3 mg/dL (1.6-2.6)
[2019-09-02 14:17] VITALS: BP 103/60
--- NOTE | 2019-09-02 14:17 | NUR ---
Discharge Instructions See e-MAR for any mediations given with this visit. Patient education given on disease process. Patient verbalized understanding. Previous labs reviewed. Patient discharged in stable condition with after care instructions and follow up appointment. medications MILRINONE IP [id number] HEPARIN IVP
== END | disposition home or self-care (01) ==
LOC: CHF HDHVI 09:25
PROVIDERS: ATTEND Internal Medicine Cardiovascular Disease
DX: I13.0 Hypertensive heart and chronic kidney disease with heart failure and stage 1 through stage 4 chronic kidney disease, or unspecified chronic kidney disease (principal); E11.22 Type 2 diabetes mellitus with diabetic chronic kidney disease; N18.9 Chronic kidney disease, unspecified; I50.42 Chronic combined systolic (congestive) and diastolic (congestive) heart failure; I25.10 Atherosclerotic heart disease of native coronary artery without angina pectoris; I42.8 Other cardiomyopathies; I48.91 Unspecified atrial fibrillation; I73.9 Peripheral vascular disease, unspecified; J44.9 Chronic obstructive pulmonary disease, unspecified; F41.9 Anxiety disorder, unspecified; E78.5 Hyperlipidemia, unspecified; E66.9 Obesity, unspecified; Z68.38 Body mass index [BMI] 38.0-38.9, adult; Z95.810 Presence of automatic (implantable) cardiac defibrillator; Z86.73 Personal history of transient ischemic attack (TIA), and cerebral infarction without residual deficits; Z79.899 Other long term (current) drug therapy
CPT/HCPCS: 36415; 82565; 83735; 83880; 84132; 84520; 94618; 96365; 96366; G0463; J1642; J2260

== ENCOUNTER → 2019-09-07 | Outpatient (CLI) | payer MEDICARE, MEDICAID ==
[2019-09-07] VITALS (11 sets, daily range): BP systolic 111–126; BP diastolic 64–74
[~2019-09-07] MED LIST changes: +MILRINONE 20MG/100ML 100 ML IV SCH
--- NOTE | 2019-09-07 08:40 | NUR ---
CHF PT ARRIVED AT THE CHF CLINIC FOR TX AND EVAL. A/O X 4 0 DISTRESS VSS
--- NOTE | 2019-09-07 09:28 | NUR ---
LABS BUN, CREA, K SENT
[2019-09-07 09:50] LABS: Potassium 3.7 mmol/L (3.5-5.1)
--- NOTE | 2019-09-07 13:30 | NUR ---
Discharge Instructions See e-MAR for any mediations given with this visit. Patient education given on disease process. Patient verbalized understanding. Previous labs reviewed. Patient discharged in stable condition with after care instructions and follow up appointment. MEDICATIONS MILRINONE DRIP [id number] HEPARIN IVP
== END | disposition home or self-care (01) ==
LOC: CHF HDHVI 09:01
PROVIDERS: ATTEND Internal Medicine Cardiovascular Disease
DX: I13.0 Hypertensive heart and chronic kidney disease with heart failure and stage 1 through stage 4 chronic kidney disease, or unspecified chronic kidney disease (principal); I50.42 Chronic combined systolic (congestive) and diastolic (congestive) heart failure; N18.9 Chronic kidney disease, unspecified; R94.4 Abnormal results of kidney function studies; E78.6 Lipoprotein deficiency; I25.10 Atherosclerotic heart disease of native coronary artery without angina pectoris; E11.22 Type 2 diabetes mellitus with diabetic chronic kidney disease; I48.91 Unspecified atrial fibrillation; J44.9 Chronic obstructive pulmonary disease, unspecified; F41.9 Anxiety disorder, unspecified; E78.5 Hyperlipidemia, unspecified; E66.9 Obesity, unspecified; Z79.899 Other long term (current) drug therapy; Z95.810 Presence of automatic (implantable) cardiac defibrillator; Z86.73 Personal history of transient ischemic attack (TIA), and cerebral infarction without residual deficits
CPT/HCPCS: 36415; 82565; 84132; 84520; 96365; 96366; G0463; J1642; J2260

== ENCOUNTER → 2019-09-09 | Outpatient (CLI) | payer MEDICARE, MEDICAID ==
[2019-09-09] VITALS (10 sets, daily range): BP systolic 115–140; BP diastolic 65–84
[~2019-09-09] VITALS: Ht 1 cm; Wt 0.5 kg
[~2019-09-09] MED LIST changes: +BUMETANIDE 1mg/4ml VIAL (0.25mg/ml) ONE; +BUMETANIDE 2.5mg/10ml (0.25 mg/ml) INJ IV ONE; -MILRINONE 20MG/100ML 100 ML IV SCH; +POTASSIUM CHL 10 Meq TABLET PO ONE
--- NOTE | 2019-09-09 08:45 | NUR ---
Mary Jane Cath Insertion [20] gauge Mary Jane Cath inserted using sterile technique in the [R] upper chest with occlusive dressing over quarles needle. Patient tolerated procedure well. Ordered labs drawn and sent. See e-MAR for medications given during this visit.
[2019-09-09 10:56] LABS: Potassium 3.9 mmol/L (3.5-5.1)
--- NOTE | 2019-09-09 13:20 | NUR ---
CHF CLINIC Discharge Instructions See e-MAR for any mediations given with this visit. Patient education given on disease process. Patient verbalized understanding. Previous labs reviewed. Patient discharged in stable condition with after care instructions and follow up appointment. NOTE MILRINONE [id number] ADMIN BY CARLY HARDY BUMEX IVP ADMIN BY CARLY HARDY POTASSIUM PO ADMIN BY CARLY HARDY HEPARIN ADMIN BY CARLY HARDY
== END | disposition home or self-care (01) ==
LOC: CHF HDHVI 08:48
PROVIDERS: ATTEND Internal Medicine Cardiovascular Disease
DX: I13.0 Hypertensive heart and chronic kidney disease with heart failure and stage 1 through stage 4 chronic kidney disease, or unspecified chronic kidney disease (principal); N18.9 Chronic kidney disease, unspecified; E11.22 Type 2 diabetes mellitus with diabetic chronic kidney disease; I50.42 Chronic combined systolic (congestive) and diastolic (congestive) heart failure; I25.10 Atherosclerotic heart disease of native coronary artery without angina pectoris; I48.91 Unspecified atrial fibrillation; I42.8 Other cardiomyopathies; F41.9 Anxiety disorder, unspecified; J44.9 Chronic obstructive pulmonary disease, unspecified; E78.5 Hyperlipidemia, unspecified; E66.9 Obesity, unspecified; I73.9 Peripheral vascular disease, unspecified; Z68.38 Body mass index [BMI] 38.0-38.9, adult; Z79.899 Other long term (current) drug therapy; Z95.810 Presence of automatic (implantable) cardiac defibrillator; Z86.73 Personal history of transient ischemic attack (TIA), and cerebral infarction without residual deficits
CPT/HCPCS: 36415; 82565; 83880; 84132; 84520; 96365; 96366; 96375; G0463; J1642; J2260; J3490

== ENCOUNTER → 2019-09-14 | Outpatient (CLI) | payer MEDICARE, MEDICAID ==
[~2019-09-14] MED LIST changes: -BUMETANIDE 1mg/4ml VIAL (0.25mg/ml) ONE; -BUMETANIDE 2.5mg/10ml (0.25 mg/ml) INJ IV ONE; -MILRINONE 20MG/100ML 100 ML IV ONE; +MVI in SODIUM CHLORIDE 0.9% 1,010 ML ONE; +MVI in SODIUM CHLORIDE 0.9% 500 ML IVB ONE; +POTASSIUM CHL 20 Meq TABLET PO ONE; +metOLazone 5 MG TAB ONE; +metOLazone 5 MG TAB PO ONE
[2019-09-14 09:49] LABS: Basophils # (auto) 0 uL; Eosinophils # (auto) 0.1 uL; Lymphocytes # (auto) 0.8 uL; Monocytes # (auto) 0.4 uL; Nucleated Red Blood Cells % 0.1 %; White Blood Cell 5.6 10^3/uL (4.4-10.8)
[2019-09-14 09:51] LABS: Basophils % (auto) 0.6 % (0.0-2.0); Eosinophils % (auto) 0.9 % (0.0-7.0); Hematocrit 41.4 % (41.0-53.0); Hemoglobin 13.6 g/dL (13.5-17.5); Lymphocytes % (auto) 14.8 % (10.0-50.0); Mean Corpuscular Hemoglobin 26.4 pg (28.0-32.0); Mean Corpuscular Hgb Conc. 32.8 g/dL (32.0-36.0); Mean Corpuscular Volume 80.5 fL (80.0-100.0); Monocytes % (auto) 7.3 % (0.0-12.0); Neutrophils # (auto) 4.3 uL; Neutrophils % (auto) 76.4 % (37.0-80.0); Platelet Count (auto) 187 10^3/uL (140-450); Red Blood Cells 5.14 10^6/uL (4.5-5.90)
[2019-09-14 09:55] LABS: Red Cell Distribution Width 20.5 % (11.8-14.3)
[2019-09-14 09:59] LABS: Albumin 3.1 g/dL (3.4-5.0); BUN/Creatinine Ratio 12.9; Calcium 8.8 mg/dL (8.5-10.1); Magnesium 2.1 mg/dL (1.6-2.6); Potassium 3.9 mmol/L (3.5-5.1)
[2019-09-14 10:01] LABS: Bilirubin, Total 0.4 mg/dL (0.2-1.0); Total Protein 7.8 g/dL (6.4-8.2)
[2019-09-14 11:35] VITALS: BP 141/76
[2019-09-14 11:46] LABS: Urine Blood Negative /uL (Negative); Urine Specific Gravity 1.021 (1.001-1.035)
== END | disposition home or self-care (01) ==
LOC: CHF HDHVI 08:40
PROVIDERS: ATTEND Internal Medicine Cardiovascular Disease
DX: I13.0 Hypertensive heart and chronic kidney disease with heart failure and stage 1 through stage 4 chronic kidney disease, or unspecified chronic kidney disease (principal); D64.9 Anemia, unspecified; N18.9 Chronic kidney disease, unspecified; I50.42 Chronic combined systolic (congestive) and diastolic (congestive) heart failure; N39.0 Urinary tract infection, site not specified; E11.22 Type 2 diabetes mellitus with diabetic chronic kidney disease; I25.10 Atherosclerotic heart disease of native coronary artery without angina pectoris; J44.9 Chronic obstructive pulmonary disease, unspecified; F41.9 Anxiety disorder, unspecified; E78.5 Hyperlipidemia, unspecified; E66.9 Obesity, unspecified; I48.91 Unspecified atrial fibrillation; M10.9 Gout, unspecified; Z79.899 Other long term (current) drug therapy; Z95.810 Presence of automatic (implantable) cardiac defibrillator; Z86.73 Personal history of transient ischemic attack (TIA), and cerebral infarction without residual deficits
CPT/HCPCS: 36415; 80053; 81003; 83735; 83880; 85025; 87086; 96365; G0463; J1642; J3411; J3475

== ENCOUNTER → 2019-09-17 | Outpatient (CLI) | payer MEDICARE, MEDICAID ==
[~2019-09-17] MED LIST changes: +MULTIVITAMIN IVB ONE; -MVI in SODIUM CHLORIDE 0.9% 500 ML IVB ONE; +SODIUM CHLORIDE IVB ONE
--- NOTE | 2019-09-17 09:40 | NUR ---
Mary Jane Cath Insertion [20] gauge Mary Jane Cath inserted BY CARLY HARDY with 2 attempts using sterile technique in the [right] upper chest with occlusive dressing over quarles needle. Patient tolerated procedure well. Ordered labs drawn and sent. See e-MAR for medications given during this visit.
[2019-09-17 09:45] VITALS: BP 133/78
[2019-09-17 11:24] VITALS: BP 124/79
--- NOTE | 2019-09-17 11:24 | NUR ---
CHF CLINIC Discharge Instructions See e-MAR for any mediations given with this visit. Patient education given on disease process. Patient verbalized understanding. Previous labs reviewed. Patient discharged in stable condition with after care instructions and follow up appointment. NOTES MVI [id number] ADMIN BY CARMEN HARDY POTASSIUM PO ADMIN BY CARMEN HARDY METOLAZONE PO ADMIN BY CARMEN HARDY HEPARIN IVP VIA PORT-A-CATH ADMIN BY CARMEN HADRY
[2019-09-17 12:24] LABS: Potassium 3.7 mmol/L (3.5-5.1)
== END | disposition home or self-care (01) ==
LOC: CHF HDHVI 09:37
PROVIDERS: ATTEND Internal Medicine Cardiovascular Disease
DX: E86.0 Dehydration (principal); R53.83 Other fatigue; I13.0 Hypertensive heart and chronic kidney disease with heart failure and stage 1 through stage 4 chronic kidney disease, or unspecified chronic kidney disease; E11.22 Type 2 diabetes mellitus with diabetic chronic kidney disease; N18.9 Chronic kidney disease, unspecified; I50.42 Chronic combined systolic (congestive) and diastolic (congestive) heart failure; I25.10 Atherosclerotic heart disease of native coronary artery without angina pectoris; I48.91 Unspecified atrial fibrillation; I42.8 Other cardiomyopathies; I73.9 Peripheral vascular disease, unspecified; R94.4 Abnormal results of kidney function studies; E87.6 Hypokalemia; F41.9 Anxiety disorder, unspecified; J44.9 Chronic obstructive pulmonary disease, unspecified; E78.5 Hyperlipidemia, unspecified; E66.9 Obesity, unspecified; Z68.38 Body mass index [BMI] 38.0-38.9, adult; Z86.73 Personal history of transient ischemic attack (TIA), and cerebral infarction without residual deficits; Z79.899 Other long term (current) drug therapy
CPT/HCPCS: 36415; 82565; 83880; 84132; 84520; 96365; G0463; J1642; J3411; J3475

== ENCOUNTER → 2019-09-23 | Outpatient (CLI) | payer MEDICARE, MEDICAID ==
[~2019-09-23] VITALS: Ht 30.5 cm; Wt 120.2 kg
[2019-09-23] VITALS (7 sets, daily range): BP systolic 103–137; BP diastolic 58–74
[~2019-09-23] MED LIST changes: +BUMETANIDE 1mg/4ml VIAL (0.25mg/ml) ONE; +BUMETANIDE 2.5mg/10ml (0.25 mg/ml) INJ IV ONE; +DOBUTamine 1000MCG/ML 250 ML IV ONE; +MAGNESIUM SULFATE 1GM/100ML 100 ML IV ONE; +MILRINONE 20MG/100ML 100 ML IV ONE; +MILRINONE 20MG/100ML 100 ML IV SCH; -MULTIVITAMIN IVB ONE; -MVI in SODIUM CHLORIDE 0.9% 1,010 ML ONE; -POTASSIUM CHL 10 Meq TABLET PO ONE; +POTASSIUM EFFERVESENT TAB 25 MEQ ONE; +POTASSIUM EFFERVESENT TAB 25 MEQ PO ONE; +SODIUM CHLORIDE 0.9% 250 ML IV ONE; -SODIUM CHLORIDE IVB ONE
[2019-09-23 10:05] LABS: BUN/Creatinine Ratio 21.7; Calcium 8.9 mg/dL (8.5-10.1); Magnesium 1.9 mg/dL (1.6-2.6)
[2019-09-23 10:11] LABS: Potassium 2.8 mmol/L (3.5-5.1)
--- NOTE | 2019-09-23 12:25 | NUR ---
Discharge Instructions See e-MAR for any mediations given with this visit. Patient education given on disease process. Patient verbalized understanding. Previous labs reviewed. Patient discharged in stable condition with after care instructions and follow up appointment. medications POTASSIUM PO EFFERVESANT MILRINONE DRIP [id number] NS IV [id number] MAGNESIUM IVPB [id number] HEPARIN IVP METOLAZONE PO BUMEX IVP
== END | disposition home or self-care (01) ==
LOC: CHF HDHVI 09:04
PROVIDERS: ATTEND Internal Medicine Cardiovascular Disease
DX: I13.0 Hypertensive heart and chronic kidney disease with heart failure and stage 1 through stage 4 chronic kidney disease, or unspecified chronic kidney disease (principal); E11.22 Type 2 diabetes mellitus with diabetic chronic kidney disease; I50.42 Chronic combined systolic (congestive) and diastolic (congestive) heart failure; N18.9 Chronic kidney disease, unspecified; I48.91 Unspecified atrial fibrillation; I25.10 Atherosclerotic heart disease of native coronary artery without angina pectoris; I42.8 Other cardiomyopathies; I73.9 Peripheral vascular disease, unspecified; J44.9 Chronic obstructive pulmonary disease, unspecified; E78.5 Hyperlipidemia, unspecified; E66.9 Obesity, unspecified; Z68.38 Body mass index [BMI] 38.0-38.9, adult; Z86.73 Personal history of transient ischemic attack (TIA), and cerebral infarction without residual deficits; Z95.810 Presence of automatic (implantable) cardiac defibrillator; Z79.899 Other long term (current) drug therapy
CPT/HCPCS: 36415; 80048; 83735; 83880; 96365; 96366; 96367; 96368; 96375; G0463; J1642; J2260; J3475; J3490; J7050; 96372

== ENCOUNTER → 2019-09-28 | Outpatient (CLI) | payer MEDICARE, MEDICAID ==
[2019-09-28] VITALS (10 sets, daily range): BP systolic 104–129; BP diastolic 55–76
[~2019-09-28] MED LIST changes: -BUMETANIDE 1mg/4ml VIAL (0.25mg/ml) ONE; -BUMETANIDE 2.5mg/10ml (0.25 mg/ml) INJ IV ONE; -DOBUTamine 1000MCG/ML 250 ML IV ONE; -MAGNESIUM SULFATE 1GM/100ML 100 ML IV ONE; -MILRINONE 20MG/100ML 100 ML IV SCH; -POTASSIUM CHL 20 Meq TABLET PO ONE; -SODIUM CHLORIDE 0.9% 250 ML IV ONE; -metOLazone 5 MG TAB ONE; -metOLazone 5 MG TAB PO ONE
--- NOTE | 2019-09-28 08:45 | NUR ---
Mary Jane Cath Insertion 20 gauge Mary Jane Cath inserted using sterile technique in the R upper chest with occlusive dressing over quarles needle. Patient tolerated procedure well. Ordered labs drawn and sent. See e-MAR for medications given during this visit. Addendum: 09/28/19 at 1122 by ABHILASH DIAMOND RN [place] TIME ARRIVED [id number]
--- NOTE | 2019-09-28 08:49 | NUR ---
CHF PT ARRIVED AT [facility]F CLINIC FOR TX AND EVAL. A/O X 4 0 DISTRESS VSS
[2019-09-28 09:44] LABS: Potassium 3.2 mmol/L (3.5-5.1)
--- NOTE | 2019-09-28 13:04 | NUR ---
Discharge Instructions See e-MAR for any mediations given with this visit. Patient education given on disease process. Patient verbalized understanding. Previous labs reviewed. Patient discharged in stable condition with after care instructions and follow up appointment. medications MILRINONE DRIP [id number] HEPARIN IVP POTASSIUM PO
== END | disposition home or self-care (01) ==
LOC: CHF HDHVI 08:57
PROVIDERS: ATTEND Internal Medicine Cardiovascular Disease
DX: I13.0 Hypertensive heart and chronic kidney disease with heart failure and stage 1 through stage 4 chronic kidney disease, or unspecified chronic kidney disease (principal); E11.22 Type 2 diabetes mellitus with diabetic chronic kidney disease; N18.9 Chronic kidney disease, unspecified; I50.42 Chronic combined systolic (congestive) and diastolic (congestive) heart failure; I25.10 Atherosclerotic heart disease of native coronary artery without angina pectoris; I42.8 Other cardiomyopathies; I48.91 Unspecified atrial fibrillation; I73.9 Peripheral vascular disease, unspecified; F41.9 Anxiety disorder, unspecified; J44.9 Chronic obstructive pulmonary disease, unspecified; E78.5 Hyperlipidemia, unspecified; E66.9 Obesity, unspecified; Z68.38 Body mass index [BMI] 38.0-38.9, adult; Z79.899 Other long term (current) drug therapy; Z95.810 Presence of automatic (implantable) cardiac defibrillator; Z86.73 Personal history of transient ischemic attack (TIA), and cerebral infarction without residual deficits
CPT/HCPCS: 36415; 82565; 84132; 84520; 85610; 96365; 96366; G0463; J1642; J2260; 93701

== ENCOUNTER → 2019-09-30 | Outpatient (CLI) | payer MEDICARE, MEDICAID ==
[2019-09-30] VITALS (10 sets, daily range): BP systolic 104–139; BP diastolic 54–79
[~2019-09-30] MED LIST changes: +MILRINONE 20MG/100ML 100 ML IV SCH; -POTASSIUM EFFERVESENT TAB 25 MEQ ONE; -POTASSIUM EFFERVESENT TAB 25 MEQ PO ONE
--- NOTE | 2019-09-30 08:45 | NUR ---
CHF PT ARRIVED AT THE CHF CLINIC FOR TX AND EVAL , A/O X 4 0 DISTRESS VSS
--- NOTE | 2019-09-30 08:50 | NUR ---
CARDIODYNAMICS CARDIODYNAMICS COMPLETE PATIENT RESULTS IMPROVED PT DOING WELL
--- NOTE | 2019-09-30 12:06 | NUR ---
Discharge Instructions See e-MAR for any mediations given with this visit. Patient education given on disease process. Patient verbalized understanding. Previous labs reviewed. Patient discharged in stable condition with after care instructions and follow up appointment. MEDICATIONS MILRINONE DRIP [id number] HEPARIN IVP
[2019-09-30 12:13] LABS: Potassium 3.7 mmol/L (3.5-5.1)
== END | disposition home or self-care (01) ==
LOC: CHF HDHVI 08:35
PROVIDERS: ATTEND Internal Medicine Cardiovascular Disease
DX: I13.0 Hypertensive heart and chronic kidney disease with heart failure and stage 1 through stage 4 chronic kidney disease, or unspecified chronic kidney disease (principal); E11.22 Type 2 diabetes mellitus with diabetic chronic kidney disease; N18.9 Chronic kidney disease, unspecified; I50.42 Chronic combined systolic (congestive) and diastolic (congestive) heart failure; I25.10 Atherosclerotic heart disease of native coronary artery without angina pectoris; I42.8 Other cardiomyopathies; I73.9 Peripheral vascular disease, unspecified; J44.9 Chronic obstructive pulmonary disease, unspecified; E78.5 Hyperlipidemia, unspecified; F41.9 Anxiety disorder, unspecified; E66.9 Obesity, unspecified; Z68.38 Body mass index [BMI] 38.0-38.9, adult; Z95.810 Presence of automatic (implantable) cardiac defibrillator; Z79.899 Other long term (current) drug therapy
CPT/HCPCS: 36415; 82565; 83880; 84132; 84520; 93701; 96365; 96366; G0463; J1642; J2260

== ENCOUNTER → 2019-10-05 | Outpatient (CLI) | payer MEDICARE, MEDICAID ==
[2019-10-05] VITALS (10 sets, daily range): BP systolic 115–131; BP diastolic 60–78
--- NOTE | 2019-10-05 08:30 | NUR ---
Clinic Provider Clinic Provider UPDATED ON PT STATUS with new orders received and carried out. MILRINONE gtt started at {0.375}mcg/kg/hr per MD order.
--- NOTE | 2019-10-05 12:18 | NUR ---
Discharge Instructions See e-MAR for any mediations given with this visit. Patient education given on disease process. Patient verbalized understanding. Previous labs reviewed. Patient discharged in stable condition with after care instructions and follow up appointment. MEDICATIONS MILRINONE IP [id number] HEPARIN 500 UNITS IVP
[2019-10-05 12:37] LABS: Basophils # (auto) 0 uL; Basophils % (auto) 0.6 % (0.0-2.0); Eosinophils # (auto) 0.1 uL; Hemoglobin 13.7 g/dL (13.5-17.5); Lymphocytes # (auto) 0.9 uL; Monocytes # (auto) 0.4 uL; Neutrophils # (auto) 3.7 uL; White Blood Cell 5.2 10^3/uL (4.4-10.8)
[2019-10-05 12:40] LABS: Eosinophils % (auto) 1.6 % (0.0-7.0); Hematocrit 42.6 % (41.0-53.0); Lymphocytes % (auto) 17.6 % (10.0-50.0); Mean Corpuscular Hgb Conc. 32.1 g/dL (32.0-36.0); Monocytes % (auto) 8.3 % (0.0-12.0); Neutrophils % (auto) 71.9 % (37.0-80.0); Nucleated Red Blood Cells % 0.2 %; Platelet Count (auto) 228 10^3/uL (140-450); Red Blood Cells 5.26 10^6/uL (4.5-5.90)
[2019-10-05 12:48] LABS: Red Cell Distribution Width 20.1 % (11.8-14.3)
[2019-10-05 12:51] LABS: Potassium 3.9 mmol/L (3.5-5.1)
[2019-10-05 12:57] LABS: BUN/Creatinine Ratio 13.9; Calcium 9.3 mg/dL (8.5-10.1); Magnesium 2.2 mg/dL (1.6-2.6)
== END | disposition home or self-care (01) ==
LOC: CHF HDHVI 08:50
PROVIDERS: ATTEND Internal Medicine Cardiovascular Disease
DX: I13.0 Hypertensive heart and chronic kidney disease with heart failure and stage 1 through stage 4 chronic kidney disease, or unspecified chronic kidney disease (principal); E11.22 Type 2 diabetes mellitus with diabetic chronic kidney disease; N18.9 Chronic kidney disease, unspecified; I50.42 Chronic combined systolic (congestive) and diastolic (congestive) heart failure; I25.10 Atherosclerotic heart disease of native coronary artery without angina pectoris; I73.9 Peripheral vascular disease, unspecified; I48.91 Unspecified atrial fibrillation; I42.8 Other cardiomyopathies; D64.9 Anemia, unspecified; E83.40 Disorders of magnesium metabolism, unspecified; E78.5 Hyperlipidemia, unspecified; E66.9 Obesity, unspecified; Z68.38 Body mass index [BMI] 38.0-38.9, adult; Z86.73 Personal history of transient ischemic attack (TIA), and cerebral infarction without residual deficits; Z79.899 Other long term (current) drug therapy; Z95.810 Presence of automatic (implantable) cardiac defibrillator
CPT/HCPCS: 36415; 80048; 83735; 85025; 85610; 96365; 96366; G0463; J1642; J2260

== ENCOUNTER → 2019-10-07 | Outpatient (CLI) | payer MEDICARE, MEDICAID ==
[2019-10-07] VITALS (10 sets, daily range): BP systolic 124–142; BP diastolic 56–87
[~2019-10-07] MED LIST changes: -MILRINONE 20MG/100ML 100 ML IV SCH
--- NOTE | 2019-10-07 09:00 | NUR ---
Mary Jane Cath Insertion 20 gauge Mary Jane Cath inserted using sterile technique in the r upper chest with occlusive dressing over quarles needle. Patient tolerated procedure well. Ordered labs drawn and sent. See e-MAR for medications given during this visit.
--- NOTE | 2019-10-07 13:19 | NUR ---
Discharge Instructions See e-MAR for any mediations given with this visit. Patient education given on disease process. Patient verbalized understanding. Previous labs reviewed. Patient discharged in stable condition with after care instructions and follow up appointment. MEDICATIONS MILRINONE DRIP IV [id number] HEPARIN IVP
== END | disposition home or self-care (01) ==
LOC: CHF HDHVI 09:04
PROVIDERS: ATTEND Internal Medicine Cardiovascular Disease
DX: I48.91 Unspecified atrial fibrillation (principal); I13.0 Hypertensive heart and chronic kidney disease with heart failure and stage 1 through stage 4 chronic kidney disease, or unspecified chronic kidney disease; E11.22 Type 2 diabetes mellitus with diabetic chronic kidney disease; N18.9 Chronic kidney disease, unspecified; I50.42 Chronic combined systolic (congestive) and diastolic (congestive) heart failure; I25.10 Atherosclerotic heart disease of native coronary artery without angina pectoris; I42.8 Other cardiomyopathies; E78.5 Hyperlipidemia, unspecified; F41.9 Anxiety disorder, unspecified; J44.9 Chronic obstructive pulmonary disease, unspecified; E66.9 Obesity, unspecified; Z68.38 Body mass index [BMI] 38.0-38.9, adult; Z79.899 Other long term (current) drug therapy; Z95.810 Presence of automatic (implantable) cardiac defibrillator; Z86.73 Personal history of transient ischemic attack (TIA), and cerebral infarction without residual deficits
CPT/HCPCS: 85610; 96365; 96366; G0463; J1642; J2260

== ENCOUNTER → 2019-10-12 | Outpatient (CLI) | payer MEDICARE, MEDICAID ==
[2019-10-12] VITALS (11 sets, daily range): BP systolic 112–144; BP diastolic 60–88
[~2019-10-12] MED LIST changes: +MILRINONE 20MG/100ML 100 ML IV SCH
--- NOTE | 2019-10-12 08:30 | NUR ---
CHF PT ARRIVED AT THE CHF CLINIC FOR TX AND EVALUATION. PT A/O X 4 0 DISTRESS VSS.
[2019-10-12 12:04] LABS: Potassium 3.5 mmol/L (3.5-5.1)
[2019-10-12 12:13] LABS: BUN/Creatinine Ratio 16.7; Calcium 9.2 mg/dL (8.5-10.1); Magnesium 2.4 mg/dL (1.6-2.6)
--- NOTE | 2019-10-12 13:40 | NUR ---
Discharge Instructions See e-MAR for any mediations given with this visit. Patient education given on disease process. Patient verbalized understanding. Previous labs reviewed. Patient discharged in stable condition with after care instructions and follow up appointment. MEDICATIONS MILRINONE IV DRIP [id number] HEPARIN IVP
== END | disposition home or self-care (01) ==
LOC: CHF HDHVI 09:01
PROVIDERS: ATTEND Internal Medicine Cardiovascular Disease
DX: I13.0 Hypertensive heart and chronic kidney disease with heart failure and stage 1 through stage 4 chronic kidney disease, or unspecified chronic kidney disease (principal); E78.5 Hyperlipidemia, unspecified; F41.9 Anxiety disorder, unspecified; I25.10 Atherosclerotic heart disease of native coronary artery without angina pectoris; I50.42 Chronic combined systolic (congestive) and diastolic (congestive) heart failure; N18.9 Chronic kidney disease, unspecified; J44.9 Chronic obstructive pulmonary disease, unspecified; E66.9 Obesity, unspecified; E11.22 Type 2 diabetes mellitus with diabetic chronic kidney disease; I48.91 Unspecified atrial fibrillation; Z79.899 Other long term (current) drug therapy; Z95.810 Presence of automatic (implantable) cardiac defibrillator; Z86.13 Personal history of malaria; Z86.73 Personal history of transient ischemic attack (TIA), and cerebral infarction without residual deficits
CPT/HCPCS: 36415; 80048; 83735; 83880; 85610; 96365; 96366; G0463; J1642; J2260

== ENCOUNTER → 2019-10-14 | Outpatient (CLI) | payer MEDICARE, MEDICAID ==
--- NOTE | 2019-10-14 08:51 | NUR ---
Clinic Provider Clinic Provider updated on pt status new orders received and carried out. milrinone gtt started at {0.375}mcg/kg/hr per MD order.
--- NOTE | 2019-10-14 08:51 | NUR ---
CHF PT ARRIVED TO THE CHF CLINIC FOR WEEK;Y TX AND F/U. PT A/O X 4 O DISTRESS VSS.
[2019-10-14 13:12] VITALS: BP 132/59
--- NOTE | 2019-10-14 13:16 | NUR ---
Discharge Instructions See e-MAR for any mediations given with this visit. Patient education given on disease process. Patient verbalized understanding. Previous labs reviewed. Patient discharged in stable condition with after care instructions and follow up appointment. MEDICATIONS MILRINONE DRIP IV [id number] HEPARIN IVP
== END | disposition home or self-care (01) ==
LOC: CHF HDHVI 08:57
PROVIDERS: ATTEND Internal Medicine Cardiovascular Disease
DX: I13.0 Hypertensive heart and chronic kidney disease with heart failure and stage 1 through stage 4 chronic kidney disease, or unspecified chronic kidney disease (principal); N18.9 Chronic kidney disease, unspecified; I50.42 Chronic combined systolic (congestive) and diastolic (congestive) heart failure; I25.10 Atherosclerotic heart disease of native coronary artery without angina pectoris; F41.9 Anxiety disorder, unspecified; J44.9 Chronic obstructive pulmonary disease, unspecified; E78.5 Hyperlipidemia, unspecified; E66.9 Obesity, unspecified; E11.22 Type 2 diabetes mellitus with diabetic chronic kidney disease; I48.91 Unspecified atrial fibrillation; Z79.899 Other long term (current) drug therapy; Z86.13 Personal history of malaria; Z95.810 Presence of automatic (implantable) cardiac defibrillator; Z86.73 Personal history of transient ischemic attack (TIA), and cerebral infarction without residual deficits
CPT/HCPCS: 85610; 96365; 96366; G0463; J1642; J2260

== ENCOUNTER → 2019-10-19 | Outpatient (CLI) | payer MEDICARE, MEDICAID ==
[2019-10-19] VITALS (9 sets, daily range): BP systolic 93–144; BP diastolic 50–76
[~2019-10-19] MED LIST changes: +BUMETANIDE 1mg/4ml VIAL (0.25mg/ml) ONE; +BUMETANIDE 2.5mg/10ml (0.25 mg/ml) INJ IV ONE; -MILRINONE 20MG/100ML 100 ML IV SCH; +metOLazone 5 MG TAB ONE; +metOLazone 5 MG TAB PO ONE
--- NOTE | 2019-10-19 08:45 | NUR ---
Mary Jane Cath Insertion 20 gauge Mary Jane Cath inserted by Ruben HARDY using sterile technique in the R upper chest with occlusive dressing over quarles needle. Patient tolerated procedure well. Ordered labs drawn and sent. See e-MAR for medications given during this visit.
[2019-10-19 11:27] LABS: Basophils # (auto) 0 uL; Basophils % (auto) 0.5 % (0.0-2.0); Eosinophils # (auto) 0.1 uL; Hematocrit 41.4 % (41.0-53.0); Mean Corpuscular Hemoglobin 25.9 pg (28.0-32.0); Monocytes # (auto) 0.6 uL; Neutrophils # (auto) 4.2 uL
[2019-10-19 11:29] LABS: Eosinophils % (auto) 1.6 % (0.0-7.0); Hemoglobin 13.4 g/dL (13.5-17.5); Lymphocytes # (auto) 1.3 uL; Lymphocytes % (auto) 20.1 % (10.0-50.0); Mean Corpuscular Hgb Conc. 32.4 g/dL (32.0-36.0); Mean Corpuscular Volume 79.7 fL (80.0-100.0); Monocytes % (auto) 10.1 % (0.0-12.0); Neutrophils % (auto) 67.7 % (37.0-80.0); Platelet Count (auto) 225 10^3/uL (140-450); Red Cell Distribution Width 19.4 % (11.8-14.3); White Blood Cell 6.2 10^3/uL (4.4-10.8)
[2019-10-19 11:31] LABS: Calcium 8.8 mg/dL (8.5-10.1); Magnesium 2.4 mg/dL (1.6-2.6); Potassium 3.8 mmol/L (3.5-5.1)
[2019-10-19 11:34] LABS: BUN/Creatinine Ratio 15.6
--- NOTE | 2019-10-19 13:36 | NUR ---
CHF CLINIC Discharge Instructions See e-MAR for any mediations given with this visit. Patient education given on disease process. Patient verbalized understanding. Previous labs reviewed. Patient discharged in stable condition with after care instructions and follow up appointment. NOTE MILRINONE [id number] ADMIN BY CARLY HARDY BUMEX IVP ADMIN BY CARLY HARDY METOLAZONE PO ADMIN BY CARLY HARDY HEPARIN ADMIN BY CARLY HARDY
== END | disposition home or self-care (01) ==
LOC: CHF HDHVI 08:50
PROVIDERS: ATTEND Internal Medicine Cardiovascular Disease
DX: I13.0 Hypertensive heart and chronic kidney disease with heart failure and stage 1 through stage 4 chronic kidney disease, or unspecified chronic kidney disease (principal); E11.22 Type 2 diabetes mellitus with diabetic chronic kidney disease; N18.9 Chronic kidney disease, unspecified; I50.42 Chronic combined systolic (congestive) and diastolic (congestive) heart failure; I25.10 Atherosclerotic heart disease of native coronary artery without angina pectoris; I48.91 Unspecified atrial fibrillation; I42.8 Other cardiomyopathies; I73.9 Peripheral vascular disease, unspecified; F41.9 Anxiety disorder, unspecified; E87.70 Fluid overload, unspecified; D64.9 Anemia, unspecified; J44.9 Chronic obstructive pulmonary disease, unspecified; E78.5 Hyperlipidemia, unspecified; E66.9 Obesity, unspecified; Z68.38 Body mass index [BMI] 38.0-38.9, adult; Z95.810 Presence of automatic (implantable) cardiac defibrillator; Z79.899 Other long term (current) drug therapy
CPT/HCPCS: 36415; 80048; 83735; 83880; 85025; 85610; 96365; 96366; 96375; G0463; J1642; J2260; J3490

== ENCOUNTER → 2019-10-28 | Outpatient (CLI) | payer MEDICARE, MEDICAID ==
[2019-10-28] VITALS (10 sets, daily range): BP systolic 99–134; BP diastolic 51–76
[~2019-10-28] MED LIST changes: +POTASSIUM EFFERVESENT TAB 25 MEQ ONE; +POTASSIUM EFFERVESENT TAB 25 MEQ PO ONE
[2019-10-28 12:16] LABS: Potassium 3.6 mmol/L (3.5-5.1)
--- NOTE | 2019-10-28 13:07 | NUR ---
Discharge Instructions See e-MAR for any mediations given with this visit. Patient education given on disease process. Patient verbalized understanding. Previous labs reviewed. Patient discharged in stable condition with after care instructions and follow up appointment. MEDICATIONS MILRINONE DRIP IV [id number] HEPARIN 500 UNITS IVP BUMEX IVP POTASSIUM PO EFFERVESANT METOLAZONE PO
== END | disposition home or self-care (01) ==
LOC: CHF HDHVI 09:05
PROVIDERS: ATTEND Internal Medicine Cardiovascular Disease
DX: I13.0 Hypertensive heart and chronic kidney disease with heart failure and stage 1 through stage 4 chronic kidney disease, or unspecified chronic kidney disease (principal); I50.42 Chronic combined systolic (congestive) and diastolic (congestive) heart failure; N18.9 Chronic kidney disease, unspecified; I25.10 Atherosclerotic heart disease of native coronary artery without angina pectoris; I48.91 Unspecified atrial fibrillation; I73.9 Peripheral vascular disease, unspecified; I42.8 Other cardiomyopathies; F41.9 Anxiety disorder, unspecified; J44.9 Chronic obstructive pulmonary disease, unspecified; E87.70 Fluid overload, unspecified; E78.5 Hyperlipidemia, unspecified; E66.9 Obesity, unspecified; Z68.38 Body mass index [BMI] 38.0-38.9, adult; Z86.73 Personal history of transient ischemic attack (TIA), and cerebral infarction without residual deficits; Z79.899 Other long term (current) drug therapy
CPT/HCPCS: 36415; 82565; 83735; 83880; 84132; 84520; 85610; 96365; 96366; 96375; G0463; J1642; J2260; J3490

== ENCOUNTER → 2019-11-02 | Outpatient (CLI) | payer MEDICARE, MEDICAID ==
[2019-11-02] VITALS (8 sets, daily range): BP systolic 111–130; BP diastolic 60–75
[~2019-11-02] MED LIST changes: -BUMETANIDE 1mg/4ml VIAL (0.25mg/ml) ONE; -BUMETANIDE 2.5mg/10ml (0.25 mg/ml) INJ IV ONE; +MILRINONE 20MG/100ML 100 ML IV SCH; -POTASSIUM EFFERVESENT TAB 25 MEQ ONE; -POTASSIUM EFFERVESENT TAB 25 MEQ PO ONE; -metOLazone 5 MG TAB ONE; -metOLazone 5 MG TAB PO ONE
--- NOTE | 2019-11-02 08:30 | NUR ---
Clinic Provider Clinic Provider updated with pt status new orders received and carried out. Milrinone gtt started at {0.375}mcg/kg/hr per MD order.
--- NOTE | 2019-11-02 08:45 | NUR ---
Mary Jane Cath Insertion 20 gauge Mary Jane Cath inserted using sterile technique in the upper chest with occlusive dressing over quarles needle. Patient tolerated procedure well. Ordered labs drawn and sent. See e-MAR for medications given during this visit. Placed by Ruben HARDY
[2019-11-02 11:32] LABS: Basophils # (auto) 0 uL; Basophils % (auto) 0.4 % (0.0-2.0); Eosinophils # (auto) 0.1 uL; Monocytes # (auto) 0.6 uL
[2019-11-02 11:35] LABS: Eosinophils % (auto) 1.1 % (0.0-7.0); Hematocrit 44.5 % (41.0-53.0); Hemoglobin 14.5 g/dL (13.5-17.5); Lymphocytes % (auto) 16.3 % (10.0-50.0); Mean Corpuscular Hgb Conc. 32.5 g/dL (32.0-36.0); Monocytes % (auto) 9.8 % (0.0-12.0); Neutrophils # (auto) 4.2 uL; Neutrophils % (auto) 72.4 % (37.0-80.0); Nucleated Red Blood Cells % 0.2 %; Platelet Count (auto) 226 10^3/uL (140-450); Red Blood Cells 5.56 10^6/uL (4.5-5.90); Red Cell Distribution Width 18.5 % (11.8-14.3); White Blood Cell 5.8 10^3/uL (4.4-10.8)
--- NOTE | 2019-11-02 11:48 | NUR ---
Mary Jane Cath Removal Horowitz needle D/C'd after Heparin flush per protocol. See e-MAR for medications given during this visit. Sterile occlusive dressing to site. Patient tolerated procedure well. Site benign post infusion. BY MADDI HARDY
[2019-11-02 11:50] LABS: Albumin 3.4 g/dL (3.4-5.0); BUN/Creatinine Ratio 17.2; Bilirubin, Total 0.4 mg/dL (0.2-1.0); Magnesium 2.3 mg/dL (1.6-2.6); Total Protein 8.5 g/dL (6.4-8.2)
--- NOTE | 2019-11-02 11:50 | NUR ---
Discharge Instructions See e-MAR for any mediations given with this visit. Patient education given on disease process. Patient verbalized understanding. Previous labs reviewed. Patient discharged in stable condition with after care instructions and follow up appointment. MEDICATIONS MILRINONE IV DRIP [id number] HEPARIN IVP Addendum: 11/02/19 at 1434 by ABHILASH DIAMOND RN [place] PT POTASSIUM 2.9 PT TOOK 60 MEQ OF HIS OWN POTASSIUM
[2019-11-02 11:58] LABS: Potassium 2.9 mmol/L (3.5-5.1)
== END | disposition home or self-care (01) ==
LOC: CHF HDHVI 09:10
PROVIDERS: ATTEND Internal Medicine Cardiovascular Disease
DX: I13.0 Hypertensive heart and chronic kidney disease with heart failure and stage 1 through stage 4 chronic kidney disease, or unspecified chronic kidney disease (principal); E11.22 Type 2 diabetes mellitus with diabetic chronic kidney disease; N18.9 Chronic kidney disease, unspecified; I50.42 Chronic combined systolic (congestive) and diastolic (congestive) heart failure; I25.10 Atherosclerotic heart disease of native coronary artery without angina pectoris; I48.91 Unspecified atrial fibrillation; I42.8 Other cardiomyopathies; I73.9 Peripheral vascular disease, unspecified; F41.9 Anxiety disorder, unspecified; J44.9 Chronic obstructive pulmonary disease, unspecified; E78.5 Hyperlipidemia, unspecified; E66.9 Obesity, unspecified; Z68.38 Body mass index [BMI] 38.0-38.9, adult; Z95.810 Presence of automatic (implantable) cardiac defibrillator; Z79.899 Other long term (current) drug therapy
CPT/HCPCS: 36415; 80053; 83735; 83880; 85025; 96365; 96366; G0463; J1642; J2260

== ENCOUNTER → 2019-11-05 | Outpatient (CLI) | payer MEDICARE, MEDICAID ==
[~2019-11-05] VITALS: Ht 30.5 cm; Wt 121.6 kg
[2019-11-05] VITALS (10 sets, daily range): BP systolic 98–129; BP diastolic 53–76
[~2019-11-05] MED LIST changes: -MILRINONE 20MG/100ML 100 ML IV SCH
--- NOTE | 2019-11-05 09:00 | NUR ---
Mary Jane Cath Insertion 20 gauge Mary Jane Cath inserted by Marta HARDY using sterile technique in the R upper chest with occlusive dressing over quarles needle. Patient tolerated procedure well. Ordered labs drawn and sent. See e-MAR for medications given during this visit.
--- NOTE | 2019-11-05 13:12 | NUR ---
CHF CLINIC Discharge Instructions See e-MAR for any mediations given with this visit. Patient education given on disease process. Patient verbalized understanding. Previous labs reviewed. Patient discharged in stable condition with after care instructions and follow up appointment. NOTE MILRINONE [id number] ADMIN BY MADDI HARDY HEPARIN ADMIN BY ABHILASH HARDY
== END | disposition home or self-care (01) ==
LOC: CHF HDHVI 08:57
PROVIDERS: ATTEND Internal Medicine Cardiovascular Disease
DX: I13.0 Hypertensive heart and chronic kidney disease with heart failure and stage 1 through stage 4 chronic kidney disease, or unspecified chronic kidney disease (principal); E11.22 Type 2 diabetes mellitus with diabetic chronic kidney disease; N18.9 Chronic kidney disease, unspecified; I50.42 Chronic combined systolic (congestive) and diastolic (congestive) heart failure; I25.10 Atherosclerotic heart disease of native coronary artery without angina pectoris; I48.91 Unspecified atrial fibrillation; I73.9 Peripheral vascular disease, unspecified; I42.8 Other cardiomyopathies; F41.9 Anxiety disorder, unspecified; J44.9 Chronic obstructive pulmonary disease, unspecified; E78.5 Hyperlipidemia, unspecified; E66.9 Obesity, unspecified; Z68.38 Body mass index [BMI] 38.0-38.9, adult; Z86.73 Personal history of transient ischemic attack (TIA), and cerebral infarction without residual deficits; Z95.810 Presence of automatic (implantable) cardiac defibrillator; Z79.899 Other long term (current) drug therapy
CPT/HCPCS: 96365; 96366; G0463; J1642; J2260

== ENCOUNTER → 2019-11-09 | Outpatient (CLI) | payer MEDICARE, MEDICAID ==
--- NOTE | 2019-11-09 09:45 | NUR ---
Mary Jane Cath Insertion 20 gauge Mary Jane Cath inserted using sterile technique in the upper chest with occlusive dressing over quarles needle. Patient tolerated procedure well. Ordered labs drawn and sent. See e-MAR for medications given during this visit. NOTE DONE BY ABHILASH HARDY
[2019-11-09 10:15] VITALS: BP 98/66
[2019-11-09 10:30] VITALS: BP 126/60
[2019-11-09 10:45] VITALS: BP 110/51
[2019-11-09 11:00] VITALS: BP 103/63
[2019-11-09 11:30] VITALS: BP 101/57
[2019-11-09 12:12] LABS: Magnesium 2.1 mg/dL (1.6-2.6); Potassium 3.8 mmol/L (3.5-5.1)
[2019-11-09 13:48] VITALS: BP 101/67
--- NOTE | 2019-11-09 13:48 | NUR ---
Discharge Instructions See e-MAR for any mediations given with this visit. Patient education given on disease process. Patient verbalized understanding. Previous labs reviewed. Patient discharged in stable condition with after care instructions and follow up appointment. MEDICATIONS MILRINONE DRIP [id number] HEPARIN IVP PT INR 1.5 PT HAS NOT TAKEN HIS COUMADIN SINCE 11/06/19, STATES PHARMACY DOESNT ALWAYS DELIVER. WILL FOLLOW UP WITH PHARMACY
== END | disposition home or self-care (01) ==
LOC: CHF HDHVI 09:29
PROVIDERS: ATTEND Internal Medicine Cardiovascular Disease
DX: I13.0 Hypertensive heart and chronic kidney disease with heart failure and stage 1 through stage 4 chronic kidney disease, or unspecified chronic kidney disease (principal); E11.22 Type 2 diabetes mellitus with diabetic chronic kidney disease; N18.9 Chronic kidney disease, unspecified; I50.42 Chronic combined systolic (congestive) and diastolic (congestive) heart failure; I25.10 Atherosclerotic heart disease of native coronary artery without angina pectoris; I48.91 Unspecified atrial fibrillation; F41.9 Anxiety disorder, unspecified; I73.9 Peripheral vascular disease, unspecified; I42.8 Other cardiomyopathies; J44.9 Chronic obstructive pulmonary disease, unspecified; E78.6 Lipoprotein deficiency; R53.83 Other fatigue; E78.5 Hyperlipidemia, unspecified; Z86.73 Personal history of transient ischemic attack (TIA), and cerebral infarction without residual deficits; E66.9 Obesity, unspecified; Z68.38 Body mass index [BMI] 38.0-38.9, adult; Z79.899 Other long term (current) drug therapy
CPT/HCPCS: 36415; 82565; 83735; 84132; 84520; 85610; 96365; 96366; G0463; J1642; J2260

== ENCOUNTER → 2019-11-11 | Outpatient (CLI) | payer MEDICARE, MEDICAID ==
[~2019-11-11] VITALS: Ht 30.5 cm; Wt 122.0 kg
[2019-11-11] VITALS (10 sets, daily range): BP systolic 100–134; BP diastolic 60–79
[~2019-11-11] MED LIST changes: +POTASSIUM CHL 20 Meq TABLET PO ONE; +POTASSIUM EFFERVESENT TAB 25 MEQ ONE; +POTASSIUM EFFERVESENT TAB 25 MEQ PO ONE; +metOLazone 5 MG TAB ONE; +metOLazone 5 MG TAB PO ONE
--- NOTE | 2019-11-11 09:00 | NUR ---
CHF PT ARRIVED TO CHF CLINIC FOR WEEKLY THERAPY. A/O X4 VSS
--- NOTE | 2019-11-11 09:05 | NUR ---
Clinic Provider Clinic Provider updated new orders received and carried out. Milrinone gtt started at {0.375}mcg/kg/hr per MD order. Addendum: 11/11/19 at 1633 by ABHILASH DIAMOND RN ID MEDICATION STARTED AT [id number]
--- NOTE | 2019-11-11 09:30 | NUR ---
CARDIODYNAMICS COMPLETED IMPROVEMENT NOTED
--- NOTE | 2019-11-11 10:00 | NUR ---
Mary Jane Cath Insertion 20 gauge Mary Jane Cath inserted using sterile technique in the upper chest with occlusive dressing over quarles needle. Patient tolerated procedure well. Ordered labs drawn and sent. See e-MAR for medications given during this visit. NOTE INSERTED BY MADDI HARDY Addendum: 11/11/19 at 1632 by ABHILASH DIAMOND RN [facility] NO LABS SENT TODAY
--- NOTE | 2019-11-11 11:00 | NUR ---
PT TOLERATING MILRINONE DRIP VSS
--- NOTE | 2019-11-11 14:21 | NUR ---
Mary Jane Cath Removal Horowitz needle D/C'd after Heparin flush per protocol. See e-MAR for medications given during this visit. Sterile occlusive dressing to site. Patient tolerated procedure well. Site benign post infusion. NOTE REMOVED BY ABHILASH HARDY
--- NOTE | 2019-11-11 14:33 | NUR ---
Discharge Instructions See e-MAR for any mediations given with this visit. Patient education given on disease process. Patient verbalized understanding. Previous labs reviewed. Patient discharged in stable condition with after care instructions and follow up appointment. NOTE MILRINONE DRIP [id number] HEPARIN IVP METOLAZONE PO POTASSIUM PO CARDIODYNAMICS DONE BY MADDI HARDY REVIEWED WITH PT
== END | disposition home or self-care (01) ==
LOC: CHF HDHVI 09:10
PROVIDERS: ATTEND Internal Medicine Cardiovascular Disease
DX: I13.0 Hypertensive heart and chronic kidney disease with heart failure and stage 1 through stage 4 chronic kidney disease, or unspecified chronic kidney disease (principal); E11.22 Type 2 diabetes mellitus with diabetic chronic kidney disease; N18.9 Chronic kidney disease, unspecified; I50.42 Chronic combined systolic (congestive) and diastolic (congestive) heart failure; R53.83 Other fatigue; I25.10 Atherosclerotic heart disease of native coronary artery without angina pectoris; I42.8 Other cardiomyopathies; I73.9 Peripheral vascular disease, unspecified; F41.9 Anxiety disorder, unspecified; I48.91 Unspecified atrial fibrillation; E78.5 Hyperlipidemia, unspecified; E66.9 Obesity, unspecified; Z68.38 Body mass index [BMI] 38.0-38.9, adult; Z79.899 Other long term (current) drug therapy; Z86.73 Personal history of transient ischemic attack (TIA), and cerebral infarction without residual deficits; Z95.810 Presence of automatic (implantable) cardiac defibrillator
CPT/HCPCS: 93701; 96365; 96366; G0463; J1642; J2260

== ENCOUNTER → 2019-11-16 | Outpatient (CLI) | payer MEDICARE, MEDICAID ==
[2019-11-16] VITALS (11 sets, daily range): BP systolic 101–126; BP diastolic 45–70
[~2019-11-16] MED LIST changes: -POTASSIUM CHL 20 Meq TABLET PO ONE; -POTASSIUM EFFERVESENT TAB 25 MEQ ONE; -POTASSIUM EFFERVESENT TAB 25 MEQ PO ONE; -metOLazone 5 MG TAB ONE; -metOLazone 5 MG TAB PO ONE
--- NOTE | 2019-11-16 08:30 | NUR ---
CHF PT ARRIVED TO THE CHF CLINIC FOR WEEKLY MILRINONE TREATMENT. A/O X4, VSS, WITH A WEIGHT LOSS OF APPROXIMATELY 3 LBS.
--- NOTE | 2019-11-16 08:40 | NUR ---
Mary Jane Cath Insertion 20 gauge Mary Jane Cath inserted using sterile technique in the R upper chest with occlusive dressing over quarles needle. Patient tolerated procedure well. Ordered labs drawn and sent. See e-MAR for medications given during this visit. NOTE INSERTED BY ABHILASH HARDY
--- NOTE | 2019-11-16 08:57 | NUR ---
MILRINONE DRIP STARTED AT A RATE OF 0.375 MCG/KG/MIN.
--- NOTE | 2019-11-16 10:08 | NUR ---
PT TOLERATING MILRINONE DRIP. INFUSION SITE BENIGN. VSS
[2019-11-16 12:12] LABS: Potassium 3.5 mmol/L (3.5-5.1)
--- NOTE | 2019-11-16 13:03 | NUR ---
Mary Jane Cath Removal Horowitz needle D/C'd after Heparin flush per protocol. See e-MAR for medications given during this visit. Sterile occlusive dressing to site. Patient tolerated procedure well. Site benign post infusion. REMOVED BY ABHILASH HARDY
--- NOTE | 2019-11-16 13:18 | NUR ---
Discharge Instructions See e-MAR for any mediations given with this visit. Patient education given on disease process. Patient verbalized understanding. Previous labs reviewed. Patient discharged in stable condition with after care instructions and follow up appointment. NOTE MILRINONE DRIP [id number] HEPARIN IVP INR DONE BY CAMI GÓMEZ
== END | disposition home or self-care (01) ==
LOC: CHF HDHVI 08:48
PROVIDERS: ATTEND Internal Medicine Cardiovascular Disease
DX: I13.0 Hypertensive heart and chronic kidney disease with heart failure and stage 1 through stage 4 chronic kidney disease, or unspecified chronic kidney disease (principal); E11.22 Type 2 diabetes mellitus with diabetic chronic kidney disease; N18.9 Chronic kidney disease, unspecified; I50.42 Chronic combined systolic (congestive) and diastolic (congestive) heart failure; R53.83 Other fatigue; Z79.899 Other long term (current) drug therapy; I25.10 Atherosclerotic heart disease of native coronary artery without angina pectoris; I42.8 Other cardiomyopathies; I73.9 Peripheral vascular disease, unspecified; F41.9 Anxiety disorder, unspecified; E78.5 Hyperlipidemia, unspecified; E66.9 Obesity, unspecified; Z68.38 Body mass index [BMI] 38.0-38.9, adult; Z95.810 Presence of automatic (implantable) cardiac defibrillator; Z86.73 Personal history of transient ischemic attack (TIA), and cerebral infarction without residual deficits
CPT/HCPCS: 36415; 82565; 83880; 84132; 84520; 85610; 96365; 96366; G0463; J1642; J2260

== ENCOUNTER → 2019-11-18 | Outpatient (CLI) | payer MEDICARE, MEDICAID ==
[2019-11-18] VITALS (11 sets, daily range): BP systolic 99–128; BP diastolic 55–76
== END | disposition home or self-care (01) ==
LOC: CHF HDHVI 09:09
PROVIDERS: ATTEND Internal Medicine Cardiovascular Disease
DX: I13.0 Hypertensive heart and chronic kidney disease with heart failure and stage 1 through stage 4 chronic kidney disease, or unspecified chronic kidney disease (principal); E11.22 Type 2 diabetes mellitus with diabetic chronic kidney disease; N18.9 Chronic kidney disease, unspecified; I50.42 Chronic combined systolic (congestive) and diastolic (congestive) heart failure; R53.83 Other fatigue; I25.10 Atherosclerotic heart disease of native coronary artery without angina pectoris; I42.8 Other cardiomyopathies; F41.9 Anxiety disorder, unspecified; E78.5 Hyperlipidemia, unspecified; E66.9 Obesity, unspecified; Z68.38 Body mass index [BMI] 38.0-38.9, adult; Z79.899 Other long term (current) drug therapy; Z86.73 Personal history of transient ischemic attack (TIA), and cerebral infarction without residual deficits
CPT/HCPCS: 85610; 96365; 96366; G0463; J1642; J2260

== ENCOUNTER → 2019-11-25 | Outpatient (CLI) | payer MEDICARE, MEDICAID ==
[~2019-11-25] VITALS: Ht 172.7 cm; Wt 118.0 kg
[2019-11-25] VITALS (11 sets, daily range): BP systolic 109–133; BP diastolic 52–75
[~2019-11-25] MED LIST changes: +CLOP75TA41 PO; +ISOS60TA24 PO; +TORS20TA20 PO
--- NOTE | 2019-11-25 08:56 | NUR ---
CHF PT ARRIVED TO THE CHF CLINIC FOR WEEKLY MILRINONE TREATMENT AND F/U. A/O X4 VSS. PT HAD A 8.9 WT LOSS SINCE LAST VISIT ON 11/18/19. PT STATED HE HASN'T BEEN TAKING HIS COUMADIN PRESCRIBED. DISCUSSED THE IMPORTANCE OF FOLLING HIS MEDICATION REGIMEN.
--- NOTE | 2019-11-25 09:20 | NUR ---
Mary Jane Cath Insertion 20 gauge Mary Jane Cath inserted using sterile technique in the R upper chest with occlusive dressing over quarles needle. Patient tolerated procedure well. Ordered labs drawn and sent. See e-MAR for medications given during this visit. NOTE INSERTED BY MADDI HARDY
--- NOTE | 2019-11-25 10:00 | NUR ---
MILRINONE DRIP STARTED. VSS
--- NOTE | 2019-11-25 11:22 | NUR ---
PT TOLERATING MILRINONE DRIP.VSS. INFUSION SITE BENIGN. WILL CONTINUE TO MONITOR.
[2019-11-25 12:16] LABS: Potassium 3.4 mmol/L (3.5-5.1)
--- NOTE | 2019-11-25 14:09 | NUR ---
Mary Jane Cath Removal Horowitz needle D/C'd after Heparin flush per protocol. See e-MAR for medications given during this visit. Sterile occlusive dressing to site. Patient tolerated procedure well. Site benign post infusion. NOTE REMOVED BY MADDI HARDY
--- NOTE | 2019-11-25 14:21 | NUR ---
Discharge Instructions See e-MAR for any mediations given with this visit. Patient education given on disease process. Patient verbalized understanding. Previous labs reviewed. Patient discharged in stable condition with after care instructions and follow up appointment. NEXT FRIDAY. ADVISED PT TO FOLLOW CURRENT MEDICATION REGIMEN, AND TO WEIGH SELF DAILY. NOTE MILRINONE IV [id number] ADMIN BY MADDI HARDY HEPARIN IVP ADMIN BY MADDI HARDY INR 1.9 DONE BY [employer] S.A TECH
== END | disposition home or self-care (01) ==
LOC: CHF HDHVI 09:10
PROVIDERS: ATTEND Internal Medicine Cardiovascular Disease
DX: I13.0 Hypertensive heart and chronic kidney disease with heart failure and stage 1 through stage 4 chronic kidney disease, or unspecified chronic kidney disease (principal); E11.22 Type 2 diabetes mellitus with diabetic chronic kidney disease; N18.9 Chronic kidney disease, unspecified; I50.42 Chronic combined systolic (congestive) and diastolic (congestive) heart failure; I25.10 Atherosclerotic heart disease of native coronary artery without angina pectoris; I48.91 Unspecified atrial fibrillation; I73.9 Peripheral vascular disease, unspecified; I42.8 Other cardiomyopathies; J44.9 Chronic obstructive pulmonary disease, unspecified; F41.9 Anxiety disorder, unspecified; E78.5 Hyperlipidemia, unspecified; E87.6 Hypokalemia; R94.4 Abnormal results of kidney function studies; R53.83 Other fatigue; E66.9 Obesity, unspecified; Z68.38 Body mass index [BMI] 38.0-38.9, adult; Z79.899 Other long term (current) drug therapy; Z86.73 Personal history of transient ischemic attack (TIA), and cerebral infarction without residual deficits
CPT/HCPCS: 36415; 82565; 84132; 84520; 85610; 93701; 96365; 96366; G0463; J1642; J2260

== ENCOUNTER 2019-12-09 10:18 | Inpatient (IN) | payer MEDICARE, MEDICAID ==
[~2019-12-09] VITALS: Ht 172.7 cm; Wt 120.3 kg
[~2019-12-09 10:18] MED LIST changes: -CLOP75TA41 PO; -ISOS60TA24 PO; -MILRINONE 20MG/100ML 100 ML IV ONE; -TORS20TA20 PO
--- NOTE | 2019-12-09 11:19 | NUR ---
Telemetry admit from ER [facility] admitted to Telemetry unit after SBAR received. Patient oriented to DUNCAN SHIPLEY, RN primary RN, unit, room, bed, and unit policies regarding patient care and visiting hours. Patient now on continuous telemetry monitoring, tele box #1 and telemetry reading on arrival to unit is NSR 74. Patient weighed by bedscale and encouraged to call if they need something. All questions and concerns addressed, patient verbalized understanding.
[2019-12-09] MEDS ORDERED: MORPHINE SULF INJ 2 MG/ML SYRINGE 1ML IV PRN (11:45)
[2019-12-09] MEDS ORDERED: NITROGLYCERIN 0.4 MG SL TAB SL PRN (11:45)
[2019-12-09] MEDS ORDERED: HYDROcodone-ACET 10/325MG TAB PO PRN (12:15)
[2019-12-09] MEDS ORDERED: MILRINONE 20MG/100ML 100 ML IV SCH (12:15)
[2019-12-09 13:00] VITALS: BP 141/82
[2019-12-09] MEDS ORDERED: CLOP75TA41 PO (13:20)
[2019-12-09] MEDS ORDERED: TORS20TA20 PO (13:20)
[2019-12-09] MEDS ORDERED: ISOS60TA24 PO (13:20)
[2019-12-09] MEDS: HYDROcodone-ACET 10/325MG TAB PO PRN ×2 (13:27→22:11)
--- NOTE | 2019-12-09 14:27 | NUR ---
Received referral to see pt
[2019-12-09 17:00] VITALS: BP 116/67
[2019-12-09] MEDS: WARFARIN SODIUM 2 MG TAB PO SCH (17:54)
[2019-12-09] MEDS: MILRINONE 20MG/100ML 100 ML IV SCH (17:55)
[2019-12-09] MEDS ORDERED: FUROSEMIDE 20 MG/2 ML VIAL IV SCH (18:00)
--- NOTE | 2019-12-09 18:08 | NUR ---
paged Patient reporting pain in jaw still and no medication available at this time. Patient request MD be called for Ibuprofen as he takes this at home BID as needed. Dr. Neely paged.
[2019-12-09] MEDS ORDERED: IBUPROFEN 600 MG TAB PO PRN (18:30)
--- NOTE | 2019-12-09 20:14 | NUR ---
Open note assumed care of pt, upon entering room pt eyes closed, breathing even and unlabored. on room air. pt bed locked, low and 2x rails up. pt call light in reach. no s/s distress noted. this nurse to round q1hr and prn. will update pt on plan of care at later time.
[2019-12-09] MEDS: POTASSIUM CHL 20 Meq TABLET PO SCH (21:56)
[2019-12-09 22:00] VITALS: BP 128/70
[2019-12-10 05:00] VITALS: BP 109/66
[2019-12-10] MEDS: FUROSEMIDE 100 MG/10ML VIAL IV SCH ×2 (07:05→18:05)
--- NOTE | 2019-12-10 07:10 | NUR ---
Opening shift note Patient lying down with eyes closed, respirations even and non-labored with no s/s of distress. Will discuss POC with patient upon waking. Patient on RA, IV flushing, patent and intact. Bed lowered/locked with 2 side rails up. Call light within reach. Will continue to monitor.
[2019-12-10] MEDS: MILRINONE 20MG/100ML 100 ML IV SCH (07:43)
[2019-12-10 09:22] VITALS: BP 110/67
[2019-12-10] MEDS: CLOPIDOGREL BISULFATE 75 MG TAB PO SCH (10:10)
[2019-12-10] MEDS: ISOSORBIDE MONONITRATE ER 60 MG TAB PO SCH (10:10)
[2019-12-10] MEDS: DIGOXIN 0.125 MG TAB PO SCH (10:10)
[2019-12-10] MEDS: AMIODARONE HCL 200 MG TAB PO SCH (10:11)
[2019-12-10] MEDS: POTASSIUM CHL 20 Meq TABLET PO SCH ×2 (10:12→22:01)
[2019-12-10] MEDS: METOPROLOL SUCCINATE XL 50 MG TAB PO SCH (10:13)
[2019-12-10 10:26] LABS: Eosinophils # (auto) 0.2 10 ^3/uL (0-0.8); Mean Corpuscular Hemoglobin 25.5 pg (28.0-32.0); Mean Corpuscular Hgb Conc. 31.9 g/dL (32.0-36.0); Neutrophils # (auto) 2.5 10 ^3/uL (1.6-8.6)
[2019-12-10 10:28] LABS: Basophils # (auto) 0.1 10 ^3/uL (0-0.2); Basophils % (auto) 1.2 % (0.0-2.0); Eosinophils % (auto) 5.3 % (0.0-7.0); Hematocrit 39.6 % (41.0-53.0); Hemoglobin 12.6 g/dL (13.5-17.5); Lymphocytes % (auto) 24.4 % (10.0-50.0); Mean Corpuscular Volume 79.9 fL (80.0-100.0); Monocytes # (auto) 0.4 10 ^3/uL (0-1.3); Monocytes % (auto) 9.5 % (0.0-12.0); Neutrophils % (auto) 59.6 % (37.0-80.0); Nucleated Red Blood Cells % 0.6 %; Platelet Count (auto) 238 10^3/uL (140-450); Red Blood Cells 4.95 10^6/uL (4.5-5.90); Red Cell Distribution Width 18.7 % (11.8-14.3); White Blood Cell 4.2 10^3/uL (4.4-10.8)
[2019-12-10 10:31] LABS: Albumin 2.8 g/dL (3.4-5.0); Calcium 8.5 mg/dL (8.5-10.1); Potassium 3.7 mmol/L (3.5-5.1)
[2019-12-10 10:36] LABS: BUN/Creatinine Ratio 9.3; Bilirubin, Total 0.4 mg/dL (0.2-1.0); Total Protein 7.5 g/dL (6.4-8.2)
[2019-12-10 10:47] LABS: INR 1.35 (0.9-1.15)
[2019-12-10 13:00] VITALS: BP 128/75
--- NOTE | 2019-12-10 13:10 | NUR ---
Pain Patient c/o 05/01 headache/jaw pain from TMJ. Administered [place] per EMAR. Will continue to monitor.
[2019-12-10] MEDS: HYDROcodone-ACET 10/325MG TAB PO PRN ×2 (13:16→22:02)
--- NOTE | 2019-12-10 14:10 | NUR ---
Reassessed pain Patient sitting up watching TV. Patient stated that he felt better and rated his pain 5/10. Will continue to monitor.
--- NOTE | 2019-12-10 16:28 | NUR ---
Daily Weight Patient's weight this morning documented 128.2kg per bed scale.
[2019-12-10 16:33] VITALS: BP 117/76
[2019-12-10] MEDS ORDERED: IBUPROFEN 600 MG TAB PO PRN (16:45)
[2019-12-10] MEDS: WARFARIN SODIUM 2 MG TAB PO SCH (17:00)
--- NOTE | 2019-12-10 18:00 | NUR ---
Coumadin dosage Patient states he takes 4mg Coumadin usually at home. Dosage ordered by 2mg currently, will report to ISAC HARDY for discussion with MD on rounds tomorrow.
[2019-12-10 18:48] LABS: Albumin 2.9 g/dL (3.4-5.0); Calcium 8.9 mg/dL (8.5-10.1)
[2019-12-10 18:53] LABS: BUN/Creatinine Ratio 11.3; Bilirubin, Total 0.4 mg/dL (0.2-1.0); Total Protein 7.7 g/dL (6.4-8.2)
[2019-12-10 22:00] VITALS: BP 119/79
[2019-12-11] MEDS: MILRINONE 20MG/100ML 100 ML IV SCH ×2 (04:20→11:39)
[2019-12-11 05:00] VITALS: BP 121/68
[2019-12-11] MEDS: FUROSEMIDE 100 MG/10ML VIAL IV SCH ×2 (05:57→17:34)
[2019-12-11 06:01] LABS: INR 1.33 (0.9-1.15)
[2019-12-11] MEDS: HYDROcodone-ACET 10/325MG TAB PO PRN ×2 (06:03→21:10)
[2019-12-11 06:05] LABS: Albumin 2.6 g/dL (3.4-5.0); BUN/Creatinine Ratio 11.5; Calcium 8.7 mg/dL (8.5-10.1)
[2019-12-11 06:07] LABS: Bilirubin, Total 0.3 mg/dL (0.2-1.0); Total Protein 7.4 g/dL (6.4-8.2)
--- NOTE | 2019-12-11 07:30 | NUR ---
Opening Shift Note Assuming care of patient at this time. Patient is awake and alert. Patient denies pain. Patient shows no signs or symptoms of distress or shortness of breath. Bed is locked and lowered with side rails up x2. Instructed patient on the plan of care for today and to call for assistance as needed. Call light within reach. Will continue to round hourly and as needed.
--- NOTE | 2019-12-11 08:30 | NUR ---
Daily Weight Patient's weight this morning documented 129.3 kg per bed scale.
[2019-12-11 09:00] VITALS: BP 110/54
[2019-12-11] MEDS: POTASSIUM CHL 20 Meq TABLET PO SCH ×2 (10:39→21:05)
[2019-12-11] MEDS: CLOPIDOGREL BISULFATE 75 MG TAB PO SCH (10:39)
[2019-12-11] MEDS: AMIODARONE HCL 200 MG TAB PO SCH (10:39)
[2019-12-11] MEDS: ISOSORBIDE MONONITRATE ER 60 MG TAB PO SCH (10:39)
[2019-12-11] MEDS: DIGOXIN 0.125 MG TAB PO SCH (10:40)
[2019-12-11] MEDS: METOPROLOL SUCCINATE XL 50 MG TAB PO SCH (10:40)
[2019-12-11] MEDS: metOLazone 5 MG TAB PO SCH (10:41)
--- NOTE | 2019-12-11 12:00 | NUR ---
Milirinone Drip Spoke with pharmacist regarding patient's milirinone drip. Dosage to stay the same per pharmacist.
[2019-12-11 13:38] VITALS: BP 130/86
--- NOTE | 2019-12-11 13:44 | NUR ---
Call to pharmacy/coumadin dosage Call to pharmacy regarding patient's coumadin dosage. Dr. Neely has ordered 4 mg of coumadin for this evening's dosage. Pharmacist states that she "will let them know."
[2019-12-11 16:54] VITALS: BP 123/71
[2019-12-11] MEDS ORDERED: WARFARIN SODIUM 2 MG TAB PO ONE (17:00)
--- NOTE | 2019-12-11 17:35 | NUR ---
Pain Took patient Collins per doctor's orders due to chronic pain. Patient states he would rather take it after dinner.
--- NOTE | 2019-12-11 18:24 | NUR ---
Allergies Patient has a hydrocodone allergy noted in chart. Per patient he is not allergic to hydrocodone and takes it without incidence.
--- NOTE | 2019-12-11 19:26 | NUR ---
Closing Shift Note Patient resting in bed. No distress noted. Report given. Will endorse care to the security shift manager RN.
--- NOTE | 2019-12-11 19:50 | NUR ---
Opening Shift Note Assumed care of patient, awake and alert. No S/S of distress/SOB or pain. Fall and safety precautions in place. Call light within reach and able to use. Instructed on POC and to call for assist PRN, patient verbalized understanding and in agreement. Will continue to monitor for changes Q1hr and PRN.
--- NOTE | 2019-12-11 21:10 | NUR ---
PAIN ASSESSMENT PATIENT C/O 8/10 PAIN TO LEFT SIDE OF FACE, PATENT STATING IT FEELS INFLAMED / TMJ FLARE. PATIENT IS REQUESTING NORCO FOR PAIN. SEE EMAR FOR ADMINISTRATION. WILL CONTINUE TO MONITOR.
[2019-12-11 22:00] VITALS: BP 122/81
--- NOTE | 2019-12-11 22:40 | NUR ---
PAIN REASSESSMENT PATIENT PAIN RATED 0/10. PATIENT RESTING IN BED. CALL LIGHT WITHIN REACH. WILL CONTINUE TO MONITOR.
[2019-12-12] MEDS: MILRINONE 20MG/100ML 100 ML IV SCH ×2 (02:36→15:21)
[2019-12-12 05:00] VITALS: BP 96/54
[2019-12-12] MEDS: FUROSEMIDE 100 MG/10ML VIAL IV SCH ×2 (05:49→17:32)
--- NOTE | 2019-12-12 06:20 | NUR ---
BLOOD SENT TO LAB
[2019-12-12 06:51] LABS: INR 1.25 (0.9-1.15)
--- NOTE | 2019-12-12 07:43 | NUR ---
Opening Note Assumed pt care from [facility] nurse. Pt is a/ox4 with no s/s of distress or SOB. Pt is currently sitting upright in bed with no complaints at this time. Pt is currently running Milrinone at 7.16mL/HR. Pt is also on 3L NC. Discussed POC with pt; pt verbalized understanding. Safety measures maintained with call light within reach, bed in lowest position and side rails up. Will continue to monitor.
[2019-12-12 08:14] LABS: Albumin 3.2 g/dL (3.4-5.0); BUN/Creatinine Ratio 11.8; Total Protein 8.3 g/dL (6.4-8.2)
[2019-12-12 08:15] LABS: Bilirubin, Total 0.3 mg/dL (0.2-1.0); Calcium 9.6 mg/dL (8.5-10.1)
[2019-12-12 09:00] VITALS: BP 114/68
[2019-12-12] MEDS: AMIODARONE HCL 200 MG TAB PO SCH (09:22)
[2019-12-12] MEDS: metOLazone 5 MG TAB PO SCH (09:23)
[2019-12-12] MEDS: DIGOXIN 0.125 MG TAB PO SCH (09:23)
[2019-12-12] MEDS: POTASSIUM CHL 20 Meq TABLET PO SCH ×2 (09:23→21:24)
[2019-12-12] MEDS: METOPROLOL SUCCINATE XL 50 MG TAB PO SCH (09:24)
[2019-12-12] MEDS: ISOSORBIDE MONONITRATE ER 60 MG TAB PO SCH (09:24)
[2019-12-12] MEDS: CLOPIDOGREL BISULFATE 75 MG TAB PO SCH (09:24)
[2019-12-12] MEDS ORDERED: AZITHROMYCIN 250 MG TAB PO ONE (11:15)
[2019-12-12] MEDS: IPRATROPIUM BROM 0.5 MG/2.5ML INH SOL NEB SCH ×2 (11:50→19:10)
[2019-12-12] MEDS: ALBUTEROL SULF 2.5 MG/0.5ML(0.5%) NEB SOLN NEB PRN (11:50)
[2019-12-12 12:01] VITALS: BP 114/68
[2019-12-12 13:00] VITALS: BP 102/64
[2019-12-12] MEDS: HYDROcodone-ACET 10/325MG TAB PO PRN (16:00)
--- NOTE | 2019-12-12 16:12 | NUR ---
Pt C/O Muscle Cramps; Requests Potassium Pt states that he has muscle cramps in his arms. Pt requested pain medication. Upon medication administration, pt states "what about my potassium". Explained to pt that he received potassium this morning and that his potassium levels are WNL. Pt states "I still need potassium... this medication (milrinone) is doing this to me". Discussed with pt that we are monitoring his potassium levels and are aware of the medication effects. Pt is upset despite the education and explanation. Will continue to monitor and reinforce education.
[2019-12-12 16:57] VITALS: BP 113/78
[2019-12-12] MEDS: WARFARIN SODIUM 2 MG TAB PO SCH (17:17)
--- NOTE | 2019-12-12 19:40 | NUR ---
Opening Shift Note Assumed care of patient, AOX4. No S/S of distress/SOB or pain. Fall and safety precautions initiated, call light within reach and able to use. Instructed patient on his plan of care and to call for assist PRN, patient verbalized understanding and in agreement. Will continue to monitor for changes Q1hr and PRN.
[2019-12-12 22:00] VITALS: BP 131/70
--- NOTE | 2019-12-13 02:55 | NUR ---
EKG LEADS CHANGED AT THIS TIME. WILL CONTINUE TO MONITOR.
[2019-12-13 05:00] VITALS: BP 118/67
[2019-12-13] MEDS: MILRINONE 20MG/100ML 100 ML IV SCH ×2 (05:07→18:17)
[2019-12-13] MEDS: FUROSEMIDE 100 MG/10ML VIAL IV SCH ×2 (05:07→17:55)
[2019-12-13 06:30] LABS: Basophils # (auto) 0 10 ^3/uL (0-0.2); Eosinophils # (auto) 0.2 10 ^3/uL (0-0.8); Hematocrit 42.6 % (41.0-53.0); Monocytes # (auto) 0.8 10 ^3/uL (0-1.3); White Blood Cell 5.6 10^3/uL (4.4-10.8)
[2019-12-13 06:32] LABS: Basophils % (auto) 0.8 % (0.0-2.0); Eosinophils % (auto) 3.5 % (0.0-7.0); Hemoglobin 13.9 g/dL (13.5-17.5); Lymphocytes # (auto) 1.4 10 ^3/uL (0.4-5.4); Lymphocytes % (auto) 24.9 % (10.0-50.0); Mean Corpuscular Hgb Conc. 32.6 g/dL (32.0-36.0); Mean Corpuscular Volume 79.7 fL (80.0-100.0); Monocytes % (auto) 15.1 % (0.0-12.0); Neutrophils # (auto) 3.1 10 ^3/uL (1.6-8.6); Neutrophils % (auto) 55.7 % (37.0-80.0); Nucleated Red Blood Cells % 0.1 %; Platelet Count (auto) 259 10^3/uL (140-450); Red Blood Cells 5.34 10^6/uL (4.5-5.90); Red Cell Distribution Width 18.6 % (11.8-14.3)
[2019-12-13] MEDS: IPRATROPIUM BROM 0.5 MG/2.5ML INH SOL NEB SCH ×3 (06:46→19:23)
[2019-12-13 06:49] LABS: Calcium 9.5 mg/dL (8.5-10.1); INR 1.29 (0.9-1.15); Potassium 3.9 mmol/L (3.5-5.1)
[2019-12-13 06:52] LABS: BUN/Creatinine Ratio 12.2
[2019-12-13 08:32] VITALS: BP 129/77
[2019-12-13] MEDS ORDERED: WARFARIN SODIUM 2 MG TAB PO ONE (10:00)
[2019-12-13] MEDS: POTASSIUM CHL 20 Meq TABLET PO SCH ×2 (11:20→21:23)
[2019-12-13] MEDS: AMIODARONE HCL 200 MG TAB PO SCH (11:20)
[2019-12-13] MEDS: DIGOXIN 0.125 MG TAB PO SCH (11:21)
[2019-12-13] MEDS: ISOSORBIDE MONONITRATE ER 60 MG TAB PO SCH (11:21)
[2019-12-13] MEDS: AZITHROMYCIN 250 MG TAB PO SCH (11:22)
[2019-12-13] MEDS: CLOPIDOGREL BISULFATE 75 MG TAB PO SCH (11:22)
[2019-12-13] MEDS: METOPROLOL SUCCINATE XL 50 MG TAB PO SCH (11:22)
[2019-12-13] MEDS: metOLazone 5 MG TAB PO SCH (11:23)
[2019-12-13 13:00] VITALS: BP 115/70
[2019-12-13 16:53] VITALS: BP 116/63
[2019-12-13] MEDS: WARFARIN SODIUM 2 MG TAB PO SCH (17:55)
[2019-12-13] MEDS: ALBUTEROL SULF 2.5 MG/0.5ML(0.5%) NEB SOLN NEB PRN (19:23)
--- NOTE | 2019-12-13 20:55 | NUR ---
received call from [facility] stating that patient's tele monitor showed elevated st. ekg will be taken at this time along with vital signs. will continue to monitor patient.
--- NOTE | 2019-12-13 21:00 | NUR ---
upon entering room, patient is found to be at edge of bed with gown half on and bathing towels at bedside table. patient states he just got up from finishing taking a bath. patient asked how he is feeling. patient states he feels a bit of pain in his left jaw, a little short of breath, and a little tired and weak. patient vitals signs are as follows: blood pressure 108/65, heart rate 92, respirations 18 even, and oxygen saturation 98%. Additionally, patient is being set up for ekg.
--- NOTE | 2019-12-13 21:08 | NUR ---
ekg taken at this time, reading is abnormal. will make on-call hosp aware. will continue to monitor patient.
--- NOTE | 2019-12-13 21:15 | NUR ---
on-call hospitalist made aware of patient condition and recent events. on-call hosp additionally shown ekg which has been read and signed off at this time. New order received, will carry out.
[2019-12-13 22:00] VITALS: BP 108/65
--- NOTE | 2019-12-13 22:43 | NUR ---
received critical from lab trop 0.512. will notify on-call hosp.
--- NOTE | 2019-12-13 22:44 | NUR ---
on-call hosp paged. awaiting call back. will continue to monitor patient.
--- NOTE | 2019-12-13 22:57 | NUR ---
Spoke to Dr. Neely, updated on patient status, latest EKG, and critical lab value of Troponin 0.512. Told MD of patient symptoms, lab results, and current medications. New order received to give patient 4mg instead of 2mg warfarin in AM once, read back and verified. Will continue to monitor patient.
--- NOTE | 2019-12-13 23:05 | NUR ---
Per MD order, at 1000 on 12/14/19, patient is to receive 4mg of warfarin rather than scheduled 2mg. will pass on to day shift RN. Will continue to monitor.
[2019-12-14 05:00] VITALS: BP 117/75
[2019-12-14] MEDS: FUROSEMIDE 100 MG/10ML VIAL IV SCH ×2 (05:39→18:31)
[2019-12-14] MEDS: IPRATROPIUM BROM 0.5 MG/2.5ML INH SOL NEB SCH ×3 (06:56→19:04)
[2019-12-14] MEDS: ALBUTEROL SULF 2.5 MG/0.5ML(0.5%) NEB SOLN NEB PRN ×2 (06:56→19:04)
[2019-12-14 07:07] LABS: INR 1.29 (0.9-1.15)
[2019-12-14] MEDS: MILRINONE 20MG/100ML 100 ML IV SCH ×2 (08:59→23:03)
[2019-12-14 09:00] VITALS: BP 107/76
[2019-12-14] MEDS ORDERED: WARFARIN SODIUM 2 MG TAB PO ONE (10:00)
--- NOTE | 2019-12-14 10:00 | NUR ---
TROP: 3884 RESULTS MADE AWARE TO MOHSEN CHEEK
[2019-12-14] MEDS: metOLazone 5 MG TAB PO SCH (10:50)
[2019-12-14] MEDS: AZITHROMYCIN 250 MG TAB PO SCH (10:50)
[2019-12-14] MEDS: POTASSIUM CHL 20 Meq TABLET PO SCH ×2 (10:50→21:12)
[2019-12-14] MEDS: CLOPIDOGREL BISULFATE 75 MG TAB PO SCH (10:51)
[2019-12-14] MEDS: METOPROLOL SUCCINATE XL 50 MG TAB PO SCH (10:51)
[2019-12-14] MEDS: DIGOXIN 0.125 MG TAB PO SCH (10:52)
[2019-12-14] MEDS: ISOSORBIDE MONONITRATE ER 60 MG TAB PO SCH (10:53)
[2019-12-14] MEDS: AMIODARONE HCL 200 MG TAB PO SCH (10:54)
[2019-12-14 12:23] LABS: Alcohol, Urine < 3.0 mg/dL (0-5); Amphetamine Screen, Urine NEGATIVE (NEGATIVE); Barbiturate Scree,Urine NEGATIVE (NEGATIVE); Benzodiazephine Screen, Urine NEGATIVE (NEGATIVE); Cannabinoid Screen, Urine NEGATIVE (NEGATIVE); Cocaine Screen, Urine NEGATIVE (NEGATIVE); Opiate Scree,Urine NEGATIVE (NEGATIVE); Phencyclidine Screen, Urine NEGATIVE (NEGATIVE)
[2019-12-14 12:40] VITALS: BP 116/71
[2019-12-14 17:00] VITALS: BP 100/65
--- NOTE | 2019-12-14 19:26 | NUR ---
Opening Shift Note Assumed care of patient, awake and alert x 4. No S/S of distress/SOB. Bed is in lowest position and locked. Call light within reach. Board updated. Milrinone infusing at ordered rate. Tele box number matches monitor and leads are in correct placement. Instructed on POC and to call for assist PRN, will continue to monitor for changes Q1hr and PRN.
[2019-12-14] MEDS: HYDROcodone-ACET 10/325MG TAB PO PRN (21:13)
[2019-12-14 21:58] VITALS: BP 124/62
[2019-12-15] VITALS (7 sets, daily range): BP systolic 105–146; BP diastolic 57–79
[2019-12-15] MEDS: FUROSEMIDE 100 MG/10ML VIAL IV SCH ×2 (05:30→18:04)
[2019-12-15] MEDS: HYDROcodone-ACET 10/325MG TAB PO PRN (05:31)
[2019-12-15 06:28] LABS: INR 1.3 (0.9-1.15)
--- NOTE | 2019-12-15 06:46 | NUR ---
Paged MD Wright to notify of elevated Troponin of 0.655. MD Neely and MOHSEN Wayne are not available. Awaiting callback.
--- NOTE | 2019-12-15 06:56 | NUR ---
Spoke to MD Wright and notified him of the elevated troponin, current renal function test, current progress note from BUNG DRIVER Tone, BNP level, and milrinone/lasix therapy. Per MD Wright, continue plan of care, notify MD Neely when he is available, and continue troponin draw at 1200.
--- NOTE | 2019-12-15 07:13 | NUR ---
OPENING SHIFT NOTES Assumed care of patient from assistant casino shift manager RN. Patient is alert and oriented x4, no signs of distress noted. Patient was updated on the plan of care and verbalized understanding. Bed is locked, in the lowest position, side rails up x2 and call light is in reach. Patient was encouraged to call for assistance as needed.
[2019-12-15] MEDS: IPRATROPIUM BROM 0.5 MG/2.5ML INH SOL NEB SCH ×3 (07:19→19:04)
--- NOTE | 2019-12-15 09:42 | NUR ---
PATIENT COMPLAINING OF NAUSEA Patient stated he wants to "wait until his nausea is gone" before he takes his morning medications. Dk kirby MD.
--- NOTE | 2019-12-15 09:43 | NUR ---
JOSÉ SHEPARD Patient complaining of nausea, no medications ordered for nausea, awaiting call back.
--- NOTE | 2019-12-15 11:09 | NUR ---
ANN-MARIE PAGED patient complaining of nausea, no orders for nausea medications, awaiting call back
[2019-12-15] MEDS: DIGOXIN 0.125 MG TAB PO SCH (11:32)
--- NOTE | 2019-12-15 11:57 | NUR ---
ANN-MARIE CALLED New orders for Reglan 10mg IV q8h PRN for nausea/vomiting. order read back and will input.
[2019-12-15] MEDS ORDERED: METOCLOPRAMIDE HCL 5MG/ml INJ 2ml VIAL IV PRN (12:00)
--- NOTE | 2019-12-15 12:34 | NUR ---
Patient refusing lunch tray Stating he "feels sick".
[2019-12-15] MEDS: AMIODARONE HCL 200 MG TAB PO SCH (13:32)
[2019-12-15] MEDS: ISOSORBIDE MONONITRATE ER 60 MG TAB PO SCH (13:32)
[2019-12-15] MEDS: CLOPIDOGREL BISULFATE 75 MG TAB PO SCH (13:32)
[2019-12-15] MEDS: AZITHROMYCIN 250 MG TAB PO SCH (13:32)
[2019-12-15] MEDS: metOLazone 5 MG TAB PO SCH (13:32)
[2019-12-15] MEDS: POTASSIUM CHL 20 Meq TABLET PO SCH ×2 (13:32→21:32)
[2019-12-15] MEDS: METOPROLOL SUCCINATE XL 50 MG TAB PO SCH (13:32)
--- NOTE | 2019-12-15 13:32 | NUR ---
PATIENT REFUSING MORNING MEDICATION Patient was educated on the medication and its use and importance, patient stated he still "does not want any medication".
--- NOTE | 2019-12-15 14:22 | NUR ---
NUTRITION ASSESSMENT NOTES Please refer to link notes of nutrition screen form filed under the intervention section of the plan of care for further details. Est. Energy Needs: 5773-0214 kcal (14-18 kcal/kg BW). Est. Protein Needs: 83-100 gms/day (1.0-1.2 gms/kg Adj.BW). Will continue to monitor pertinent labs and reassess nutrient need prn Addendum: 12/15/19 at [address] Amended: Links added.
[2019-12-15] MEDS: MILRINONE 20MG/100ML 100 ML IV SCH (15:19)
--- NOTE | 2019-12-15 15:50 | NUR ---
Portacath dressing change per protocol, patient tolerated well.
[2019-12-15] MEDS: ALBUTEROL SULF 2.5 MG/0.5ML(0.5%) NEB SOLN NEB PRN (19:04)
--- NOTE | 2019-12-15 20:09 | NUR ---
Opening Shift Note Assumed care of patient, awake and alert. No S/S of distress/SOB or pain. Instructed on POC and to call for assist PRN, will continue to monitor for changes Q1hr and PRN.
[2019-12-16] MEDS: MILRINONE 20MG/100ML 100 ML IV SCH ×2 (04:30→18:29)
[2019-12-16 05:16] VITALS: BP 104/66
[2019-12-16] MEDS: FUROSEMIDE 100 MG/10ML VIAL IV SCH ×2 (06:15→18:00)
[2019-12-16] MEDS: IPRATROPIUM BROM 0.5 MG/2.5ML INH SOL NEB SCH ×3 (06:39→18:58)
--- NOTE | 2019-12-16 07:40 | NUR ---
Opening Note Received report from ball rolling machine operator RN. Patient is awake, alert and oriented x4. No signs or symptoms of distress noted at this time. Patient denies pain at this time, patient on 3L NC, complains of cough and shortness of breath. Reviewed plan of care with patient, patient verbalized understanding. Bed in low and locked position, call light within reach. Will continue to monitor Q1 hour and PRN.
[2019-12-16 08:49] VITALS: BP 112/84
[2019-12-16] MEDS: METOPROLOL SUCCINATE XL 50 MG TAB PO SCH (10:00)
[2019-12-16] MEDS: metOLazone 5 MG TAB PO SCH (10:00)
[2019-12-16] MEDS: ISOSORBIDE MONONITRATE ER 60 MG TAB PO SCH (10:00)
[2019-12-16] MEDS: POTASSIUM CHL 20 Meq TABLET PO SCH ×2 (10:58→21:55)
[2019-12-16] MEDS: AMIODARONE HCL 200 MG TAB PO SCH (10:58)
[2019-12-16] MEDS: CLOPIDOGREL BISULFATE 75 MG TAB PO SCH (10:58)
[2019-12-16] MEDS: DIGOXIN 0.125 MG TAB PO SCH (10:59)
[2019-12-16 13:00] VITALS: BP 127/61
--- NOTE | 2019-12-16 13:50 | NUR ---
assessment Patient is a 54 year old male who is alert and oriented. Prior to admission patient was homeless and sleeping in his car. Per patient he has 1,300 per month. I informed patient I would sent Bina matt back to see him with homeless resources and room and board resources. Patient agreed. Patients PCP is Dr Leiva. Patient informed me he would look at the room and boards and will think on it if he wants to rent a room or go back to his car. I informed patient he has a right to participate in any and all discharge planning. Patient does not have a POA and advanced directive. I have offered patient information on POA and advanced directives. I informed the patient the advantages and benefits of having an Advanced Directive. Patient verbalized understanding and agreed to discharge plan. Addendum: 12/16/19 at 1354 by Bren SCHRADER Amended: Links added.
[2019-12-16 16:01] LABS: Magnesium 2.5 mg/dL (1.6-2.6); Potassium 3.2 mmol/L (3.5-5.1)
[2019-12-16 17:00] VITALS: BP 128/85
--- NOTE | 2019-12-16 18:14 | NUR ---
Mary Jane-cath dressing change Per patients request, dressing to right upper mary jane-cath removed. Area cleaned, new dressing applied. Patient tolerated well. Will continue to monitor Q1 hour and PRN.
--- NOTE | 2019-12-16 19:05 | NUR ---
Closing Note Report given to scraper tender RN. No signs or symptoms of distress noted at this time.
[2019-12-16 21:26] VITALS: BP 106/52
[2019-12-17 05:41] VITALS: BP 120/77
[2019-12-17] MEDS: FUROSEMIDE 100 MG/10ML VIAL IV SCH (05:41)
[2019-12-17] MEDS: IPRATROPIUM BROM 0.5 MG/2.5ML INH SOL NEB SCH ×2 (06:40→12:00)
[2019-12-17 06:51] LABS: Calcium 9.3 mg/dL (8.5-10.1)
[2019-12-17 06:53] LABS: BUN/Creatinine Ratio 20.5
--- NOTE | 2019-12-17 07:15 | NUR ---
Opening Note Received report from third shift lieutenant RN. Patient is awake, alert and oriented x4. No signs or symptoms of distress noted at this time. Patient is on room air, respirations even and unlabored. Patient denies pain at this time. Reviewed plan of care with patient, patient verbalized understanding. Bed in low and locked position, call light within reach. Will continue to monitor Q1 hour and PRN.
[2019-12-17 09:00] VITALS: BP 115/65
[2019-12-17] MEDS: CLOPIDOGREL BISULFATE 75 MG TAB PO SCH (10:00)
[2019-12-17] MEDS: METOPROLOL SUCCINATE XL 50 MG TAB PO SCH (10:00)
[2019-12-17] MEDS: metOLazone 5 MG TAB PO SCH (10:00)
[2019-12-17] MEDS: DIGOXIN 0.125 MG TAB PO SCH (10:00)
[2019-12-17] MEDS: AMIODARONE HCL 200 MG TAB PO SCH (10:00)
[2019-12-17] MEDS: POTASSIUM CHL 20 Meq TABLET PO SCH (10:00)
[2019-12-17] MEDS: ISOSORBIDE MONONITRATE ER 60 MG TAB PO SCH (10:00)
[2019-12-17] MEDS: MILRINONE 20MG/100ML 100 ML IV SCH (10:32)
--- NOTE | 2019-12-17 11:30 | NUR ---
Spoke with Bina from long term care social worker Patient is homeless and has been provided with resources. Patient verbalized understanding. Will continue with discharge.
[2019-12-17 11:43] VITALS: BP 115/65
--- NOTE | 2019-12-17 12:30 | NUR ---
COLT-CATH FLUSHED Colt-cath flushed with heparin per orders,area cleaned and covered with Tegaderm. Patient tolerated well.
[2019-12-17 13:00] VITALS: BP 138/74
--- NOTE | 2019-12-17 13:45 | NUR ---
Discharge Discharge instructions given as ordered. Encourage to follow up with PMD as instructed. All questions and concerns addressed. Patient verbalized understanding. Medication reconciliation form completed and copy given to patient. Home medications held in Pharmacy returned to patient, and needed vaccines given. Telemetry unit returned to ICU. Patient taken to vehicle via wheelchair with all personal belongings, accompanied by staff and family member. No signs or symptoms of distress noted at this time.
== END 2019-12-17 13:50 | disposition home or self-care (01) | DRG 280 ==
LOC: TELE-EAST 11:08
PROVIDERS: ADMIT Internal Medicine; ATTEND Internal Medicine Cardiovascular Disease
DX: I21.4 Non-ST elevation (NSTEMI) myocardial infarction (principal); I50.21 Acute systolic (congestive) heart failure; E87.1 Hypo-osmolality and hyponatremia; I13.0 Hypertensive heart and chronic kidney disease with heart failure and stage 1 through stage 4 chronic kidney disease, or unspecified chronic kidney disease; I42.0 Dilated cardiomyopathy; J44.0 Chronic obstructive pulmonary disease with (acute) lower respiratory infection; Z68.41 Body mass index [BMI] 40.0-44.9, adult; N17.9 Acute kidney failure, unspecified; I50.82 Biventricular heart failure; E66.01 Morbid (severe) obesity due to excess calories; G47.30 Sleep apnea, unspecified; I25.10 Atherosclerotic heart disease of native coronary artery without angina pectoris; I25.5 Ischemic cardiomyopathy; N18.9 Chronic kidney disease, unspecified; J20.9 Acute bronchitis, unspecified; Z91.19 Patient's noncompliance with other medical treatment and regimen; Z88.8 Allergy status to other drugs, medicaments and biological substances; Z95.0 Presence of cardiac pacemaker; Z83.3 Family history of diabetes mellitus; Z82.49 Family history of ischemic heart disease and other diseases of the circulatory system; Z86.73 Personal history of transient ischemic attack (TIA), and cerebral infarction without residual deficits; E78.5 Hyperlipidemia, unspecified
CPT/HCPCS: 36415; 71045; 80048; 80053; 80162; 80307; 83735; 83880; 84132; 84443; 84484; 85025; 85610; 85730; 93005; 94640; 96365; G0378; G0463; J1642

== ENCOUNTER 2020-02-11 02:31 | Inpatient (IN) | payer MEDICARE, MEDICAID ==
[~2020-02-11] VITALS: Ht 170.2 cm; Wt 126.3 kg
[~2020-02-11 02:31] MED LIST changes: -BENZ100C70 PO; -BENZ100C97 PO; +CLOP75TA41 PO; +ISOS60TA24 PO; +TORS20TA20 PO
[2020-02-11 03:41] LABS: Hemoglobin 12.6 g/dL (13.5-17.5); Monocytes # (auto) 0.7 10 ^3/uL (0-1.3)
[2020-02-11 03:43] LABS: Basophils # (auto) 0 10 ^3/uL (0-0.2); Basophils % (auto) 0.3 % (0.0-2.0); Eosinophils # (auto) 0.2 10 ^3/uL (0-0.8); Eosinophils % (auto) 2.4 % (0.0-7.0); Mean Corpuscular Hemoglobin 25.4 pg (28.0-32.0); Mean Corpuscular Hgb Conc. 31.5 g/dL (32.0-36.0); Mean Corpuscular Volume 80.8 fL (80.0-100.0); Monocytes % (auto) 10.4 % (0.0-12.0); Neutrophils # (auto) 4.5 10 ^3/uL (1.6-8.6); Neutrophils % (auto) 70.9 % (37.0-80.0); Nucleated Red Blood Cells % 0.3 %; Platelet Count (auto) 224 10^3/uL (140-450); Red Blood Cells 4.95 10^6/uL (4.5-5.90); White Blood Cell 6.4 10^3/uL (4.4-10.8)
[2020-02-11 03:52] LABS: INR 1.18 (0.9-1.15); Partial Thromboplastin Time 31.9 sec (23.64-32.05)
[2020-02-11 03:56] LABS: Red Cell Distribution Width 20.2 % (11.8-14.3)
[2020-02-11 04:08] LABS: Albumin 2.9 g/dL (3.4-5.0); BUN/Creatinine Ratio 13.6; Calcium 8.1 mg/dL (8.5-10.1); Potassium 3.8 mmol/L (3.5-5.1)
[2020-02-11 04:12] LABS: Bilirubin, Total 0.4 mg/dL (0.2-1.0); Total Protein 7.7 g/dL (6.4-8.2)
[2020-02-11] MEDS ORDERED: ENOXAPARIN SOD 100 MG/1 ML SYRINGE SC ONE (04:45)
[2020-02-11] MEDS ORDERED: FUROSEMIDE 20 MG/2 ML VIAL IV ONE (04:45)
[2020-02-11 06:05] LABS: Urine Bacteria NONE SEEN /hpf (None Seen); Urine Blood Negative /uL (Negative); Urine Specific Gravity 1.007 (1.001-1.035); Urine WBC <1 /hpf (0 - 3)
[2020-02-11] MEDS ORDERED: FUROSEMIDE INJECTION 100 MG in SODIUM CHL 0.9% 100 ML IV ONE (07:00)
[2020-02-11] MEDS ORDERED: MILRINONE 20MG/100ML 100 ML IV SCH ×2 (07:00→09:15)
[2020-02-11] MEDS ORDERED: ENOXAPARIN SOD 60 MG/0.6 ML SYRINGE SC SCH (10:00)
--- NOTE | 2020-02-11 10:00 | NUR ---
Telemetry admit from [facility] admitted to Telemetry unit after SBAR received. Patient oriented to primary RN, unit, room, bed, and unit policies regarding patient care and visiting hours. Patient now on continuous telemetry monitoring, tele box # 59 and telemetry reading on arrival to unit is Paced 72. Patient placed on bedside oxygen, weighed by bedscale and encouraged to call if he need something. All questions and concerns addressed, patient verbalized understanding.
[2020-02-11 10:50] VITALS: BP 110/75
[2020-02-11] MEDS: SACUBITRIL-VALSARTAN 24mg/26mg TAB PO SCH ×2 (10:53→23:57)
[2020-02-11] MEDS: POTASSIUM CHL 20 Meq TABLET PO SCH (10:53)
[2020-02-11] MEDS: ISOSORBIDE MONONITRATE ER 60 MG TAB PO SCH (10:53)
[2020-02-11] MEDS: CLOPIDOGREL BISULFATE 75 MG TAB PO SCH (10:53)
[2020-02-11] MEDS: DIGOXIN 0.125 MG TAB PO SCH (10:54)
[2020-02-11] MEDS: CARVEDILOL 3.125 MG TAB PO SCH ×2 (10:54→23:57)
[2020-02-11] MEDS: AMIODARONE HCL 200 MG TAB PO SCH (10:55)
[2020-02-11 13:00] VITALS: BP 110/73
--- NOTE | 2020-02-11 18:00 | NUR ---
Urine Output Patient ambulated to bathroom x 2 to void Urinal emptied by RN total of 2600 mls pale yellow urine
[2020-02-11] MEDS ORDERED: WARFARIN SODIUM 2 MG TAB PO ONE (18:15)
--- NOTE | 2020-02-11 19:40 | NUR ---
Opening shift note Assumed care of patient. Pt educated about POC. No signs of distress but does have SOB. 2LNC on. Bed wheels locked, side rails up. Call light within reach.
[2020-02-11 21:30] VITALS: BP 91/48
[2020-02-11 22:40] VITALS: BP 77/39
--- NOTE | 2020-02-11 22:56 | NUR ---
critical value Pt had a critical troponin value (0.998), paged physician Dr. Leiva at 2240. Pt also has a low BP, lowest 77/39 (51), HR 62. Pt sleeping at the time. Paged a second time. Awaiting doctor's orders regarding what to do with the milrinone drip and coreg that is due.
[2020-02-11 23:00] VITALS: BP 80/38
--- NOTE | 2020-02-11 23:38 | NUR ---
medication held MD Dr. Leiva responded to page. Per MD murphy coreg, lasix, and entresto. Continue Milrinone drip. Will continue to monitor.
[2020-02-12] MEDS: POTASSIUM CHL 20 Meq TABLET PO SCH ×3 (00:09→23:23)
[2020-02-12] MEDS: MILRINONE 20MG/100ML 100 ML IV SCH ×3 (00:18→16:41)
[2020-02-12 05:00] VITALS: BP 114/63
--- NOTE | 2020-02-12 06:06 | NUR ---
pain Pt has a pain score of 5/10 in the head. No pain medications ordered. Paged Dr. Leiva, requesting PRN pain medication. Awaiting response.
--- NOTE | 2020-02-12 06:07 | NUR ---
dressing change Pt stated he wanted his port a cath dressing changed because it was peeling and itching. Dressing changed, c/d/i now.
[2020-02-12 06:09] LABS: Basophils # (auto) 0 10 ^3/uL (0-0.2); Basophils % (auto) 0.7 % (0.0-2.0); Eosinophils # (auto) 0.1 10 ^3/uL (0-0.8); Eosinophils % (auto) 2.8 % (0.0-7.0); Hematocrit 39.9 % (41.0-53.0); Hemoglobin 12.7 g/dL (13.5-17.5); Lymphocytes # (auto) 0.9 10 ^3/uL (0.4-5.4); Lymphocytes % (auto) 17.2 % (10.0-50.0); Mean Corpuscular Hemoglobin 25.3 pg (28.0-32.0); Mean Corpuscular Hgb Conc. 31.7 g/dL (32.0-36.0); Mean Corpuscular Volume 79.9 fL (80.0-100.0); Monocytes # (auto) 0.7 10 ^3/uL (0-1.3); Monocytes % (auto) 13.6 % (0.0-12.0); Neutrophils # (auto) 3.5 10 ^3/uL (1.6-8.6); Neutrophils % (auto) 65.7 % (37.0-80.0); Nucleated Red Blood Cells % 0.5 %; Platelet Count (auto) 222 10^3/uL (140-450); Red Cell Distribution Width 19.9 % (11.8-14.3); White Blood Cell 5.3 10^3/uL (4.4-10.8)
[2020-02-12 06:25] LABS: Potassium 4.2 mmol/L (3.5-5.1)
[2020-02-12 06:28] LABS: INR 1.15 (0.9-1.15); Partial Thromboplastin Time 32.5 sec (23.64-32.05)
[2020-02-12 06:31] LABS: BUN/Creatinine Ratio 14.1; Calcium 8.5 mg/dL (8.5-10.1)
--- NOTE | 2020-02-12 07:00 | NUR ---
Opening Shift Note Received report on the patient. Awake lying in bed. Patient shows no signs of distress at this time. Discussed the plan of care with the patient. Bed in lowest position, side rails up x2, and call light is within reach. Will continue to monitor.
[2020-02-12 09:00] VITALS: BP 108/68
[2020-02-12] MEDS: AMIODARONE HCL 200 MG TAB PO SCH (10:14)
[2020-02-12] MEDS: CLOPIDOGREL BISULFATE 75 MG TAB PO SCH (10:15)
[2020-02-12] MEDS: ENOXAPARIN SOD 60 MG/0.6 ML SYRINGE SC SCH (10:15)
[2020-02-12] MEDS: DIGOXIN 0.125 MG TAB PO SCH (10:16)
[2020-02-12] MEDS: CARVEDILOL 3.125 MG TAB PO SCH ×2 (10:18→22:00)
[2020-02-12] MEDS: SACUBITRIL-VALSARTAN 24mg/26mg TAB PO SCH ×2 (10:21→22:00)
[2020-02-12] MEDS: ISOSORBIDE MONONITRATE ER 60 MG TAB PO SCH (10:22)
[2020-02-12 12:55] VITALS: BP 107/65
--- NOTE | 2020-02-12 16:07 | NUR ---
Nutrition Assessment Notes Please refer to link for full assessment notes. Est Energy needs: 8123-5122 kcals (12-15 kcal/kgBW) Est Protein needs: 134-168 gms/day (2.0-2.5 gm/kgBW) Will continue to monitor and reassess prn. Addendum: 02/12/20 at [address] Amended: Links added.
[2020-02-12 17:00] VITALS: BP 102/52
[2020-02-12] MEDS ORDERED: WARFARIN SODIUM 2 MG TAB PO ONE (17:00)
[2020-02-12 22:00] VITALS: BP 109/73
[2020-02-13] MEDS ORDERED: ACETAMINOPHEN 325 MG TAB PO PRN (00:45)
[2020-02-13] MEDS ORDERED: FUROSEMIDE INJECTION 100 MG in D5W 5% 100 ML IV SCH (00:45)
--- NOTE | 2020-02-13 00:57 | NUR ---
Cough Pt reported worsening cough and SOB. Pt refused coreg and entresto last night. Dr. Leiva made aware. Per Dr. Leiva via telephone order, start lasix IV continuous 5mg/hr. Per pharmacist lasix and milrinone are not compatible. Pt has a port a cath and no other IV access. Pt refused to be poked for another IV. Paged Dr. Leiva again to inform about situation, awaiting response. Pt resting comfortably at this time, VSS. Will continue current regimen of milrinone drip until clarification from Dr. Leiva about how to proceed.
[2020-02-13 00:58] VITALS: BP 120/63
[2020-02-13] MEDS: MILRINONE 20MG/100ML 100 ML IV SCH ×3 (02:41→23:31)
[2020-02-13 05:00] VITALS: BP 119/55
[2020-02-13 06:14] LABS: INR 1.17 (0.9-1.15); Partial Thromboplastin Time 33.9 sec (23.64-32.05)
[2020-02-13 08:39] VITALS: BP 128/69
--- NOTE | 2020-02-13 08:51 | NUR ---
Paged Dr. Leiva regarding the patient refusing another IV to run the lasix drip. Awaiting new orders.
--- NOTE | 2020-02-13 10:15 | NUR ---
Received new orders from Dr Leiva. Lasix randall WATKINS'd and demadex given
[2020-02-13] MEDS: AMIODARONE HCL 200 MG TAB PO SCH (10:30)
[2020-02-13] MEDS: CARVEDILOL 3.125 MG TAB PO SCH ×2 (10:31→22:07)
[2020-02-13] MEDS: SACUBITRIL-VALSARTAN 24mg/26mg TAB PO SCH ×2 (10:31→22:07)
[2020-02-13] MEDS: TORSEMIDE 20 MG TAB PO SCH ×2 (10:31→22:00)
[2020-02-13] MEDS: ISOSORBIDE MONONITRATE ER 60 MG TAB PO SCH (10:32)
[2020-02-13] MEDS: CLOPIDOGREL BISULFATE 75 MG TAB PO SCH (10:32)
[2020-02-13] MEDS: POTASSIUM CHL 20 Meq TABLET PO SCH ×2 (10:32→22:07)
[2020-02-13] MEDS: DIGOXIN 0.125 MG TAB PO SCH (10:32)
[2020-02-13] MEDS: ENOXAPARIN SOD 60 MG/0.6 ML SYRINGE SC SCH (10:32)
[2020-02-13 12:48] VITALS: BP 96/53
--- NOTE | 2020-02-13 15:03 | NUR ---
Patient was yelling and upset that a doctor was speaking to the patient in B bed. Patient started yelling and cursing at the doctor. Patient stated that he "hated this hospital" and wanted to leave. Printed out AMA and patient said he did not want to leave anymore.
--- NOTE | 2020-02-13 16:18 | NUR ---
Patient is refusing to wear the tele box. I have advised the patient what the tele box is for and consequences of not wearing it.
[2020-02-13 16:46] VITALS: BP 104/66
[2020-02-13] MEDS ORDERED: WARFARIN SODIUM 2.5 MG TAB PO ONE (17:00)
--- NOTE | 2020-02-13 19:17 | NUR ---
Closing Shift Note gave report to HAYLEY Reyes. Patient shows no signs of distress at this time.
--- NOTE | 2020-02-13 19:36 | NUR ---
Opening Shift Note Assumed care of patient, awake and alert. No S/S of distress/SOB or pain. Instructed on POC and to call for assist PRN, will continue to monitor for changes Q1hr and PRN.
[2020-02-13 22:00] VITALS: BP 115/66
--- NOTE | 2020-02-13 22:00 | NUR ---
PATIENT REFUSED TORSEMIDE PATIENT REFUSED TORSEMIDE BECAUSE HE DIDN'T WANT TO PEE ALL NIGHT. PATIENT EDUCATED ON THE NEED TO TAKE TORSEMIDE TO GET RID OF EXCESS FLUID IN THE BODY, PATIENT SAY "I UNDERSTAND BUT I DON'T WANT TO PEE ALL NIGHT".
[2020-02-14 05:00] VITALS: BP 94/59
[2020-02-14 06:49] LABS: INR 1.17 (0.9-1.15)
--- NOTE | 2020-02-14 07:29 | NUR ---
Closing Shift Note report given to dayshift nurse. Patient shows no signs of distress at this time.
[2020-02-14] MEDS: MILRINONE 20MG/100ML 100 ML IV SCH (07:50)
[2020-02-14 09:00] VITALS: BP 114/60
[2020-02-14] MEDS: ISOSORBIDE MONONITRATE ER 60 MG TAB PO SCH (10:00)
[2020-02-14] MEDS: TORSEMIDE 20 MG TAB PO SCH (10:07)
[2020-02-14] MEDS: AMIODARONE HCL 200 MG TAB PO SCH (10:07)
[2020-02-14] MEDS: SACUBITRIL-VALSARTAN 24mg/26mg TAB PO SCH (10:08)
[2020-02-14] MEDS: POTASSIUM CHL 20 Meq TABLET PO SCH (10:18)
[2020-02-14] MEDS: DIGOXIN 0.125 MG TAB PO SCH (10:20)
[2020-02-14] MEDS: CLOPIDOGREL BISULFATE 75 MG TAB PO SCH (10:20)
[2020-02-14] MEDS: ENOXAPARIN SOD 60 MG/0.6 ML SYRINGE SC SCH (10:21)
[2020-02-14] MEDS: CARVEDILOL 3.125 MG TAB PO SCH (10:27)
[2020-02-14 12:58] VITALS: BP 110/62
--- NOTE | 2020-02-14 13:05 | NUR ---
Dr. Leiva at bedside
--- NOTE | 2020-02-14 13:26 | NUR ---
Patient refused the ABG. No oxygen or nephrology social worker ordered
[2020-02-14 14:16] VITALS: BP 110/62
[2020-02-14 16:43] VITALS: BP 116/72
[2020-02-14] MEDS ORDERED: WARFARIN SODIUM 10 MG TAB PO ONE (17:00)
--- NOTE | 2020-02-14 17:10 | NUR ---
Discharge instructions given as ordered. Encourage to follow up with PMD as instructed. All questions and concerns addressed. Patient verbalized understanding. Medication reconciliation form completed and copy given to patient. Mary Jane cath access removed and pressure dressing applied. Telemetry unit returned to ICU. Patient taken to vehicle via wheelchair with all personal belongings, accompanied by staff and family member. No distress noted at time of departure.
== END 2020-02-14 17:09 | disposition home or self-care (01) | DRG 291 ==
LOC: EDBD 02:31 → ER 02:31 → TELE 02:32 → TELE-WESTW 09:55
PROVIDERS: ADMIT Internal Medicine Cardiovascular Disease; ATTEND Internal Medicine Cardiovascular Disease
DX: I13.0 Hypertensive heart and chronic kidney disease with heart failure and stage 1 through stage 4 chronic kidney disease, or unspecified chronic kidney disease (principal); I50.21 Acute systolic (congestive) heart failure; N18.3 Chronic kidney disease, stage 3 (moderate); D64.9 Anemia, unspecified; E66.9 Obesity, unspecified; G47.30 Sleep apnea, unspecified; I42.0 Dilated cardiomyopathy; Z91.14 Patient's other noncompliance with medication regimen; Z91.19 Patient's noncompliance with other medical treatment and regimen; Z88.8 Allergy status to other drugs, medicaments and biological substances; I48.91 Unspecified atrial fibrillation; I73.9 Peripheral vascular disease, unspecified; Z79.01 Long term (current) use of anticoagulants; Z82.1 Family history of blindness and visual loss; Z82.3 Family history of stroke; Z82.49 Family history of ischemic heart disease and other diseases of the circulatory system; Z86.73 Personal history of transient ischemic attack (TIA), and cerebral infarction without residual deficits; Z83.3 Family history of diabetes mellitus; Z95.810 Presence of automatic (implantable) cardiac defibrillator; Z68.34 Body mass index [BMI] 34.0-34.9, adult
CPT/HCPCS: 36415; 71045; 80048; 80053; 81001; 83880; 84484; 85025; 85379; 85610; 85730; 87081; 93005; G0378; J7060

== ENCOUNTER → 2020-02-23 | Outpatient (CLI) | payer MEDICARE, MEDICAID ==
[2020-02-23] VITALS (8 sets, daily range): BP systolic 109–136; BP diastolic 73–86
[~2020-02-23] MED LIST changes: +AMIO100T3 PO; +ISO60SRT PO; +MILRINONE 20MG/100ML 100 ML IV ONE; +WARF2TAB49 PO
--- NOTE | 2020-02-23 11:29 | NUR ---
PATIENT INTO CLINIC FOR SCHEDULED INFUSION, AAOx4, AMBULATORY, BREATHING EVEN AND SLIGHTLY LABORED. PATIENT STATES HE WAS IN THE HOSPITAL LAST WEEK, HAS F/U APPT WITH .
--- NOTE | 2020-02-23 11:54 | NUR ---
Mary Jane Cath Insertion 20 gauge Mary Jane Cath inserted by Kassandra HARDY using sterile technique in the R upper chest with occlusive dressing over quarles needle. Patient tolerated procedure well. Ordered labs drawn and sent. See e-MAR for medications given during this visit.
--- NOTE | 2020-02-23 12:14 | NUR ---
INFUSION STARTED, SEE EMAR FOR MEDICATIONS ADMINISTERED.
--- NOTE | 2020-02-23 14:42 | NUR ---
INFUSION STOPPED AND PATIENT SENT TO MD SIDE FOR APPT.
--- NOTE | 2020-02-23 15:19 | NUR ---
PATIENT RETURN FROM APPT.
--- NOTE | 2020-02-23 15:39 | NUR ---
CHF CLINIC Discharge Instructions See e-MAR for any mediations given with this visit. Patient education given on disease process. Patient verbalized understanding. Previous labs reviewed. Patient discharged in stable condition with after care instructions and follow up appointment. NOTE MILRINONE [id number] ADMIN BY MADDI HARDY. HEPARIN ADMIN BY MADDI HARDY. CALLED FOR PATIENT RIDE @[phone]
[2020-02-23 16:11] LABS: Albumin 3.4 g/dL (3.4-5.0); Calcium 8.6 mg/dL (8.5-10.1); Magnesium 2.7 mg/dL (1.6-2.6)
[2020-02-23 16:16] LABS: BUN/Creatinine Ratio 19.5; Bilirubin, Total 0.3 mg/dL (0.2-1.0); Total Protein 8.1 g/dL (6.4-8.2)
[2020-02-23 16:22] LABS: Basophils # (auto) 0 10 ^3/uL (0-0.2); Eosinophils # (auto) 0.1 10 ^3/uL (0-0.8); Hemoglobin 12.8 g/dL (13.5-17.5); Lymphocytes # (auto) 1.2 10 ^3/uL (0.4-5.4); Nucleated Red Blood Cells % 0.1 %; White Blood Cell 6.6 10^3/uL (4.4-10.8)
[2020-02-23 16:24] LABS: Basophils % (auto) 0.5 % (0.0-2.0); Eosinophils % (auto) 1.3 % (0.0-7.0); Hematocrit 40.2 % (41.0-53.0); Mean Corpuscular Hemoglobin 25.4 pg (28.0-32.0); Mean Corpuscular Hgb Conc. 31.8 g/dL (32.0-36.0); Mean Corpuscular Volume 79.8 fL (80.0-100.0); Monocytes % (auto) 14.4 % (0.0-12.0); Neutrophils # (auto) 4.3 10 ^3/uL (1.6-8.6); Neutrophils % (auto) 65.8 % (37.0-80.0); Platelet Count (auto) 248 10^3/uL (140-450); Red Blood Cells 5.04 10^6/uL (4.5-5.90); Red Cell Distribution Width 19.8 % (11.8-14.3)
--- NOTE | 2020-02-23 16:30 | NUR ---
CALL RECEIVED FROM [facility] PERSONNEL [facility], WITH REPORT OF SERUM GLUCOSE OF 48 FROM PT'S DRAW TIME OF 11;56 THIS AM WHEN PT. CAME IN FOR MILRINONE THERAPY PER MD ORDER. OF NOTE PT DID NOT DEMONSTRATE ANY SIGNS OR SYMPTOMS OF HYPOGLYCEMIA DURING TIME IN CLINIC, AND WAS SEEN BY DR. JACOBSEN DURING HIS TIME IN CLINIC. PT. WAS DISCHARGED AT 1539, AND STATED HE WAS GOING TO GET SOMETHING TO EAT AFTER HE LEFT. VSS UPON DISCHARGE.
== END | disposition home or self-care (01) ==
LOC: CHF HDHVI 11:34
PROVIDERS: ATTEND Internal Medicine Cardiovascular Disease
DX: I13.0 Hypertensive heart and chronic kidney disease with heart failure and stage 1 through stage 4 chronic kidney disease, or unspecified chronic kidney disease (principal); N18.3 Chronic kidney disease, stage 3 (moderate); I50.9 Heart failure, unspecified; I48.91 Unspecified atrial fibrillation; D63.1 Anemia in chronic kidney disease; I73.9 Peripheral vascular disease, unspecified; Z95.810 Presence of automatic (implantable) cardiac defibrillator; E66.9 Obesity, unspecified; Z68.41 Body mass index [BMI] 40.0-44.9, adult; Z79.899 Other long term (current) drug therapy; Z79.01 Long term (current) use of anticoagulants
CPT/HCPCS: 36415; 80053; 82607; 83735; 83880; 85025; 96365; 96366; G0463; J1642; J2260

== ENCOUNTER → 2020-03-01 | Outpatient (CLI) | payer MEDICARE, MEDICAID ==
[2020-03-01] VITALS (11 sets, daily range): BP systolic 121–136; BP diastolic 66–82
[~2020-03-01] VITALS: Ht 30.5 cm; Wt 123.2 kg
[2020-03-01 12:35] LABS: Potassium 3.9 mmol/L (3.5-5.1)
== END | disposition home or self-care (01) ==
LOC: CHF HDHVI 10:14
PROVIDERS: ATTEND Internal Medicine Cardiovascular Disease
DX: I50.20 Unspecified systolic (congestive) heart failure (principal); I13.0 Hypertensive heart and chronic kidney disease with heart failure and stage 1 through stage 4 chronic kidney disease, or unspecified chronic kidney disease; N18.3 Chronic kidney disease, stage 3 (moderate); R53.83 Other fatigue; G89.29 Other chronic pain; I48.91 Unspecified atrial fibrillation; I42.8 Other cardiomyopathies; E66.9 Obesity, unspecified; Z79.01 Long term (current) use of anticoagulants; Z68.34 Body mass index [BMI] 34.0-34.9, adult; Z79.899 Other long term (current) drug therapy
CPT/HCPCS: 36415; 82565; 83880; 84132; 84520; 96365; 96366; G0463; J1642; J2260

== ENCOUNTER 2020-03-03 15:10 | Inpatient (IN) | payer MEDICARE, MEDICAID ==
[~2020-03-03] VITALS: Ht 175.3 cm; Wt 123.1 kg
[~2020-03-03 15:10] MED LIST changes: -AMIO100T3 PO; -ISO60SRT PO; -MILRINONE 20MG/100ML 100 ML IV ONE; -WARF2TAB49 PO
[2020-03-03] MEDS ORDERED: HYDROcodone-ACET 10/325MG TAB PO PRN ×2 (15:45→20:30)
[2020-03-03] MEDS ORDERED: FUROSEMIDE INJECTION 100 MG in SODIUM CHL 0.9% 100 ML IV SCH (15:45)
[2020-03-03] MEDS ORDERED: MILRINONE 20MG/100ML 100 ML IV SCH ×2 (15:45→20:30)
[2020-03-03 20:19] VITALS: BP 138/86
[2020-03-03 20:30] VITALS: BP 138/86
[2020-03-03 21:53] LABS: Eosinophils # (auto) 0.1 10 ^3/uL (0-0.8); Hematocrit 38.9 % (41.0-53.0); Lymphocytes # (auto) 1.3 10 ^3/uL (0.4-5.4); Monocytes # (auto) 0.7 10 ^3/uL (0-1.3); Neutrophils # (auto) 6.3 10 ^3/uL (1.6-8.6)
[2020-03-03 21:54] LABS: Basophils # (auto) 0 10 ^3/uL (0-0.2); Basophils % (auto) 0.4 % (0.0-2.0); Eosinophils % (auto) 0.8 % (0.0-7.0); Hemoglobin 12.1 g/dL (13.5-17.5); Lymphocytes % (auto) 15.2 % (10.0-50.0); Mean Corpuscular Hemoglobin 24.6 pg (28.0-32.0); Mean Corpuscular Hgb Conc. 31.2 g/dL (32.0-36.0); Mean Corpuscular Volume 78.6 fL (80.0-100.0); Monocytes % (auto) 8.6 % (0.0-12.0); Nucleated Red Blood Cells % 0.3 %; Platelet Count (auto) 225 10^3/uL (140-450); Red Blood Cells 4.94 10^6/uL (4.5-5.90); Red Cell Distribution Width 19.7 % (11.8-14.3); White Blood Cell 8.5 10^3/uL (4.4-10.8)
[2020-03-03 22:05] LABS: BUN/Creatinine Ratio 14.4; Calcium 8.6 mg/dL (8.5-10.1); Potassium 3.9 mmol/L (3.5-5.1)
[2020-03-03] MEDS: MILRINONE 20MG/100ML 100 ML IV SCH (23:15)
[2020-03-04] MEDS: MILRINONE 20MG/100ML 100 ML IV SCH ×3 (04:44→22:30)
[2020-03-04 05:34] VITALS: BP 104/54
[2020-03-04 08:35] LABS: BUN/Creatinine Ratio 14.9; Calcium 7.9 mg/dL (8.5-10.1); Potassium 3.5 mmol/L (3.5-5.1)
[2020-03-04 09:00] VITALS: BP 119/74
[2020-03-04] MEDS ORDERED: AMIODARONE HCL 200 MG TAB PO SCH (10:00)
[2020-03-04] MEDS ORDERED: ISOSORBIDE MONONITRATE ER 60 MG TAB PO SCH (10:00)
[2020-03-04] MEDS ORDERED: ALLOPURINOL 300 MG TAB PO SCH (10:00)
[2020-03-04] MEDS ORDERED: METOPROLOL TARTRATE 25 MG TAB PO SCH (10:00)
[2020-03-04] MEDS ORDERED: CLOPIDOGREL BISULFATE 75 MG TAB PO SCH (10:00)
[2020-03-04] MEDS: AMIODARONE HCL 200 MG TAB PO SCH (10:11)
[2020-03-04] MEDS: CLOPIDOGREL BISULFATE 75 MG TAB PO SCH (10:12)
[2020-03-04] MEDS: ISOSORBIDE MONONITRATE ER 60 MG TAB PO SCH (10:12)
[2020-03-04] MEDS: ALLOPURINOL 300 MG TAB PO SCH (10:13)
[2020-03-04] MEDS: METOPROLOL SUCCINATE XL 50 MG TAB PO SCH (10:13)
[2020-03-04 13:00] VITALS: BP 102/59
[2020-03-04 17:03] VITALS: BP 92/67
[2020-03-04 22:00] VITALS: BP 124/64
[2020-03-04] MEDS ORDERED: ACETAMINOPHEN 325 MG TAB PO PRN (22:30)
[2020-03-05] MEDS: MILRINONE 20MG/100ML 100 ML IV SCH ×3 (02:36→19:00)
[2020-03-05 05:00] VITALS: BP 97/54
[2020-03-05 07:00] LABS: BUN/Creatinine Ratio 14.2; Calcium 8.6 mg/dL (8.5-10.1)
[2020-03-05 09:00] VITALS: BP 118/72
[2020-03-05] MEDS: ALLOPURINOL 300 MG TAB PO SCH (09:22)
[2020-03-05] MEDS: ISOSORBIDE MONONITRATE ER 60 MG TAB PO SCH (09:23)
[2020-03-05] MEDS: METOPROLOL SUCCINATE XL 50 MG TAB PO SCH (09:23)
[2020-03-05] MEDS: AMIODARONE HCL 200 MG TAB PO SCH (09:24)
[2020-03-05] MEDS: CLOPIDOGREL BISULFATE 75 MG TAB PO SCH (09:24)
[2020-03-05] MEDS: FUROSEMIDE INJECTION 100 MG in D5W 5% 100 ML IV SCH ×3 (11:51→21:21)
[2020-03-05 13:00] VITALS: BP 128/72
[2020-03-05 17:00] VITALS: BP 129/76
[2020-03-05 23:27] VITALS: BP 137/85
[2020-03-06] MEDS: MILRINONE 20MG/100ML 100 ML IV SCH ×4 (00:22→22:32)
[2020-03-06] MEDS: FUROSEMIDE INJECTION 100 MG in D5W 5% 100 ML IV SCH ×5 (02:00→22:32)
[2020-03-06 05:38] VITALS: BP 117/63
[2020-03-06] MEDS: AMIODARONE HCL 200 MG TAB PO SCH (09:39)
[2020-03-06] MEDS: CLOPIDOGREL BISULFATE 75 MG TAB PO SCH (09:39)
[2020-03-06] MEDS: ALLOPURINOL 300 MG TAB PO SCH (09:40)
[2020-03-06] MEDS: METOPROLOL SUCCINATE XL 50 MG TAB PO SCH (09:40)
[2020-03-06] MEDS: ISOSORBIDE MONONITRATE ER 60 MG TAB PO SCH (09:40)
[2020-03-06 09:49] VITALS: BP 97/52
[2020-03-06 13:00] VITALS: BP 99/60
[2020-03-06 16:30] LABS: Eosinophils # (auto) 0.1 10 ^3/uL (0-0.8); Lymphocytes # (auto) 1.1 10 ^3/uL (0.4-5.4); Neutrophils # (auto) 4.7 10 ^3/uL (1.6-8.6); Red Cell Distribution Width 19.4 % (11.8-14.3)
[2020-03-06 16:31] LABS: Basophils # (auto) 0.1 10 ^3/uL (0-0.2); Eosinophils % (auto) 1.5 % (0.0-7.0); Hematocrit 41.1 % (41.0-53.0); Lymphocytes % (auto) 16.3 % (10.0-50.0); Mean Corpuscular Hemoglobin 24.6 pg (28.0-32.0); Mean Corpuscular Hgb Conc. 31.7 g/dL (32.0-36.0); Mean Corpuscular Volume 77.8 fL (80.0-100.0); Monocytes # (auto) 0.8 10 ^3/uL (0-1.3); Monocytes % (auto) 12.2 % (0.0-12.0); Nucleated Red Blood Cells % 0.5 %; Platelet Count (auto) 234 10^3/uL (140-450); Red Blood Cells 5.29 10^6/uL (4.5-5.90); White Blood Cell 6.8 10^3/uL (4.4-10.8)
[2020-03-06 16:45] VITALS: BP 97/71
[2020-03-06] MEDS ORDERED: ISOS60TA24 PO (17:21)
[2020-03-06] MEDS ORDERED: WARF2TAB PO (17:21)
[2020-03-06] MEDS ORDERED: AMIO100T3 PO (17:21)
[2020-03-06] MEDS ORDERED: WARF2TAB49 PO (17:38)
[2020-03-06] MEDS ORDERED: ISO60SRT PO (17:38)
[2020-03-06 17:58] LABS: INR 1.11 (0.9-1.15)
[2020-03-06] MEDS ORDERED: WARFARIN SODIUM 2 MG TAB PO ONE (19:30)
[2020-03-06] MEDS: guaiFENesin-CODEINE Liq 5 ML UD PO PRN (19:52)
[2020-03-06 20:00] VITALS: BP 130/70
[2020-03-06 21:00] VITALS: BP 130/70
[2020-03-07] MEDS: FUROSEMIDE INJECTION 100 MG in D5W 5% 100 ML IV SCH ×5 (03:00→22:27)
[2020-03-07 04:30] VITALS: BP 104/62
[2020-03-07] MEDS: MILRINONE 20MG/100ML 100 ML IV SCH ×3 (05:28→19:21)
[2020-03-07 06:47] LABS: INR 1.06 (0.9-1.15); Partial Thromboplastin Time 29.6 sec (23.64-32.05)
[2020-03-07 06:51] LABS: Potassium 3.1 mmol/L (3.5-5.1)
[2020-03-07 07:09] LABS: Albumin 3.1 g/dL (3.4-5.0); BUN/Creatinine Ratio 13.7; Bilirubin, Total 0.6 mg/dL (0.2-1.0); Total Protein 8.1 g/dL (6.4-8.2)
[2020-03-07 09:07] VITALS: BP 89/52
[2020-03-07] MEDS: CLOPIDOGREL BISULFATE 75 MG TAB PO SCH (09:54)
[2020-03-07] MEDS: ALLOPURINOL 300 MG TAB PO SCH (09:55)
[2020-03-07] MEDS: ISOSORBIDE MONONITRATE ER 60 MG TAB PO SCH (09:55)
[2020-03-07] MEDS: AMIODARONE HCL 200 MG TAB PO SCH (09:55)
[2020-03-07] MEDS: METOPROLOL SUCCINATE XL 50 MG TAB PO SCH (09:55)
[2020-03-07] MEDS: DIGOXIN 0.125 MG TAB PO SCH (09:56)
[2020-03-07] MEDS: guaiFENesin-CODEINE Liq 5 ML UD PO PRN ×2 (12:01→22:27)
[2020-03-07 13:00] VITALS: BP 97/51
[2020-03-07] MEDS ORDERED: WARFARIN SODIUM 5 MG TAB PO ONE (17:00)
[2020-03-07 17:02] VITALS: BP 100/64
[2020-03-07 19:45] LABS: Calcium 8.7 mg/dL (8.5-10.1); Potassium 3.2 mmol/L (3.5-5.1)
[2020-03-07 19:47] LABS: BUN/Creatinine Ratio 15.4
[2020-03-07 23:02] VITALS: BP 112/66
[2020-03-08] MEDS: MILRINONE 20MG/100ML 100 ML IV SCH ×3 (03:12→17:09)
[2020-03-08] MEDS: FUROSEMIDE INJECTION 100 MG in D5W 5% 100 ML IV SCH ×4 (03:13→21:42)
[2020-03-08 05:30] VITALS: BP 104/59
[2020-03-08 07:59] LABS: INR 1.13 (0.9-1.15); Partial Thromboplastin Time 31.9 sec (23.64-32.05)
[2020-03-08 09:00] VITALS: BP 102/65
[2020-03-08] MEDS: METOPROLOL SUCCINATE XL 50 MG TAB PO SCH (10:00)
[2020-03-08] MEDS: AMIODARONE HCL 200 MG TAB PO SCH (10:09)
[2020-03-08] MEDS: ALLOPURINOL 300 MG TAB PO SCH (10:09)
[2020-03-08] MEDS: CLOPIDOGREL BISULFATE 75 MG TAB PO SCH (10:10)
[2020-03-08] MEDS: ISOSORBIDE MONONITRATE ER 60 MG TAB PO SCH (10:10)
[2020-03-08] MEDS: DIGOXIN 0.125 MG TAB PO SCH (10:11)
[2020-03-08 13:00] VITALS: BP 100/56
[2020-03-08] MEDS ORDERED: WARFARIN SODIUM 5 MG TAB PO ONE (17:00)
[2020-03-08 20:00] VITALS: BP 100/62
[2020-03-08] MEDS: guaiFENesin-CODEINE Liq 5 ML UD PO PRN (21:31)
[2020-03-08 22:00] VITALS: BP 100/62
[2020-03-09] MEDS: MILRINONE 20MG/100ML 100 ML IV SCH ×2 (01:15→08:42)
[2020-03-09 05:00] VITALS: BP 110/61
[2020-03-09 06:38] LABS: INR 1.14 (0.9-1.15)
[2020-03-09 07:17] LABS: BUN/Creatinine Ratio 16.8; Calcium 7.6 mg/dL (8.5-10.1)
[2020-03-09] MEDS: FUROSEMIDE INJECTION 100 MG in D5W 5% 100 ML IV SCH ×4 (08:41→10:00)
[2020-03-09 09:00] VITALS: BP 114/71
[2020-03-09] MEDS: ISOSORBIDE MONONITRATE ER 60 MG TAB PO SCH (10:00)
[2020-03-09] MEDS: METOPROLOL SUCCINATE XL 50 MG TAB PO SCH (10:00)
[2020-03-09] MEDS: CLOPIDOGREL BISULFATE 75 MG TAB PO SCH (10:01)
[2020-03-09] MEDS: AMIODARONE HCL 200 MG TAB PO SCH (10:01)
[2020-03-09] MEDS: ALLOPURINOL 300 MG TAB PO SCH (10:01)
[2020-03-09] MEDS: DIGOXIN 0.125 MG TAB PO SCH (10:01)
[2020-03-09] MEDS ORDERED: POTASSIUM CHL 20 Meq TABLET PO ONE (11:30)
[2020-03-09 13:00] VITALS: BP 109/71
[2020-03-09 15:11] VITALS: BP 109/71
[2020-03-09] MEDS ORDERED: WARFARIN SODIUM 2 MG TAB PO ONE (17:00)
== END 2020-03-09 15:55 | disposition home or self-care (01) | DRG 291 ==
LOC: TELE-WESTW 18:03
PROVIDERS: ADMIT Internal Medicine Cardiovascular Disease; ATTEND Internal Medicine Cardiovascular Disease
DX: I50.23 Acute on chronic systolic (congestive) heart failure (principal); N17.0 Acute kidney failure with tubular necrosis; I42.0 Dilated cardiomyopathy; G89.4 Chronic pain syndrome; Z59.0 Homelessness; Z91.19 Patient's noncompliance with other medical treatment and regimen; I25.5 Ischemic cardiomyopathy; Z91.012 Allergy to eggs
CPT/HCPCS: 36415; 71045; 71046; 80048; 80053; 80162; 82565; 83880; 84132; 84520; 85025; 85610; 85730; 87081; 96365; 96366; 96374; G0378; G0463; J1642; J7060

== ENCOUNTER → 2020-03-13 | Outpatient (CLI) | payer MEDICARE, MEDICAID ==
[~2020-03-13] VITALS: Ht 30.5 cm; Wt 122.3 kg
[2020-03-13] VITALS (11 sets, daily range): BP systolic 110–128; BP diastolic 58–76
[~2020-03-13] MED LIST changes: -FURO40TA4 PO; +ISO60SRT PO; -ISOS60TA24 PO; +MILRINONE 20MG/100ML 100 ML IV ONE; -SACU1TAB PO; -WARF2TAB PO; +WARF2TAB49 PO
--- NOTE | 2020-03-13 08:41 | NUR ---
CHF PT ARRIVED TO THE CHF CLINIC FOR WEEKLY EVAL AND TX. A/OX4, AMBULATORY. PT CAME IN WITH C/O SOB. O2 SATS 97% RA. PT PLACED ON O2 2L VIA N/C. PT IS CURRENTLY LIVING IN A HOMELESS CORRECTION.
--- NOTE | 2020-03-13 09:00 | NUR ---
MILRINONE INFUSION STARTED @ 0.375 MCG/KG/MIN PER MD ORDERS. VSS. WILL CONTINUE TO MONITOR.
--- NOTE | 2020-03-13 11:00 | NUR ---
PT TOLERATING MILRINONE INFUSION.. INFUSION SITE BENIGN. VSS. WILL CONTINUE TO MONITOR
[2020-03-13 11:57] LABS: Basophils # (auto) 0.1 10 ^3/uL (0-0.2); Eosinophils # (auto) 0.1 10 ^3/uL (0-0.8); Hemoglobin 12.7 g/dL (13.5-17.5); Lymphocytes # (auto) 1.2 10 ^3/uL (0.4-5.4); Mean Corpuscular Volume 77.9 fL (80.0-100.0); Monocytes # (auto) 0.8 10 ^3/uL (0-1.3); Red Cell Distribution Width 19.4 % (11.8-14.3); White Blood Cell 7.2 10^3/uL (4.4-10.8)
[2020-03-13 11:59] LABS: Basophils % (auto) 0.7 % (0.0-2.0); Eosinophils % (auto) 1.5 % (0.0-7.0); Hematocrit 40.6 % (41.0-53.0); Lymphocytes % (auto) 17.4 % (10.0-50.0); Mean Corpuscular Hemoglobin 24.3 pg (28.0-32.0); Mean Corpuscular Hgb Conc. 31.2 g/dL (32.0-36.0); Monocytes % (auto) 10.9 % (0.0-12.0); Neutrophils % (auto) 69.5 % (37.0-80.0); Nucleated Red Blood Cells % 0.2 %; Platelet Count (auto) 259 10^3/uL (140-450)
[2020-03-13 12:21] LABS: Calcium 9.1 mg/dL (8.5-10.1); Magnesium 2.3 mg/dL (1.6-2.6); Potassium 3.8 mmol/L (3.5-5.1)
[2020-03-13 12:24] LABS: BUN/Creatinine Ratio 21.1
--- NOTE | 2020-03-13 13:33 | NUR ---
Discharge Instructions See e-MAR for any mediations given with this visit. Patient education given on disease process. Patient verbalized understanding. Previous labs reviewed. Patient discharged in stable condition with after care instructions and follow up appointment. PT TO RETURN TO CLINIC ON FRI FOR F/U AND TX. PER MD ORDERS. NOTE MILRINONE IV [id number] ADMIN BY YULY HARDY HEPARIN IVP ADMIN BY MADDI HARDY
== END | disposition home or self-care (01) ==
LOC: CHF HDHVI 08:46
PROVIDERS: ATTEND Internal Medicine Cardiovascular Disease
DX: I13.0 Hypertensive heart and chronic kidney disease with heart failure and stage 1 through stage 4 chronic kidney disease, or unspecified chronic kidney disease (principal); I50.23 Acute on chronic systolic (congestive) heart failure; N18.3 Chronic kidney disease, stage 3 (moderate); I48.91 Unspecified atrial fibrillation; I42.8 Other cardiomyopathies; I73.9 Peripheral vascular disease, unspecified; E83.40 Disorders of magnesium metabolism, unspecified; R53.83 Other fatigue; R06.02 Shortness of breath; G89.29 Other chronic pain; E66.9 Obesity, unspecified; Z68.34 Body mass index [BMI] 34.0-34.9, adult; Z86.73 Personal history of transient ischemic attack (TIA), and cerebral infarction without residual deficits; Z79.899 Other long term (current) drug therapy; Z79.01 Long term (current) use of anticoagulants; Z95.810 Presence of automatic (implantable) cardiac defibrillator
CPT/HCPCS: 36415; 80048; 83735; 83880; 85025; 96365; 96366; G0463; J1642; J2260

== ENCOUNTER → 2020-03-15 | Outpatient (CLI) | payer MEDICARE, MEDICAID ==
[~2020-03-15] VITALS: Ht 30.5 cm; Wt 121.3 kg
[2020-03-15] VITALS (7 sets, daily range): BP systolic 100–118; BP diastolic 59–82
[~2020-03-15] MED LIST changes: +FUROSEMIDE 100 MG/10ML VIAL IV ONE; +FUROSEMIDE 20 MG/2 ML VIAL ONE; +FUROSEMIDE INJECTION 10 ML ONE; +POTASSIUM CHL 20 Meq TABLET PO ONE
== END | disposition home or self-care (01) ==
LOC: CHF HDHVI 09:03
PROVIDERS: ATTEND Internal Medicine Cardiovascular Disease
DX: I13.0 Hypertensive heart and chronic kidney disease with heart failure and stage 1 through stage 4 chronic kidney disease, or unspecified chronic kidney disease (principal); N18.3 Chronic kidney disease, stage 3 (moderate); I50.22 Chronic systolic (congestive) heart failure; R53.83 Other fatigue; I48.91 Unspecified atrial fibrillation; I42.8 Other cardiomyopathies; I73.9 Peripheral vascular disease, unspecified; G89.29 Other chronic pain; E66.9 Obesity, unspecified; Z95.810 Presence of automatic (implantable) cardiac defibrillator; Z79.899 Other long term (current) drug therapy; Z79.01 Long term (current) use of anticoagulants; Z86.73 Personal history of transient ischemic attack (TIA), and cerebral infarction without residual deficits
CPT/HCPCS: 96365; 96366; 96375; G0463; J1642; J1940; J2260

== ENCOUNTER → 2020-03-21 | Outpatient (CLI) | payer MEDICARE, MEDICAID ==
[2020-03-21] VITALS (11 sets, daily range): BP systolic 106–122; BP diastolic 60–79
[~2020-03-21] MED LIST changes: -FUROSEMIDE 100 MG/10ML VIAL IV ONE; -FUROSEMIDE 20 MG/2 ML VIAL ONE; -FUROSEMIDE INJECTION 10 ML ONE; +metOLazone 5 MG TAB ONE; +metOLazone 5 MG TAB PO ONE
[2020-03-21 12:04] LABS: Potassium 3.9 mmol/L (3.5-5.1)
== END | disposition home or self-care (01) ==
LOC: CHF HDHVI 08:13
PROVIDERS: ATTEND Internal Medicine Cardiovascular Disease
DX: I13.0 Hypertensive heart and chronic kidney disease with heart failure and stage 1 through stage 4 chronic kidney disease, or unspecified chronic kidney disease (principal); I50.23 Acute on chronic systolic (congestive) heart failure; N18.3 Chronic kidney disease, stage 3 (moderate); E87.6 Hypokalemia; I73.9 Peripheral vascular disease, unspecified; I48.91 Unspecified atrial fibrillation; G89.4 Chronic pain syndrome; E66.9 Obesity, unspecified; Z68.34 Body mass index [BMI] 34.0-34.9, adult; Z79.01 Long term (current) use of anticoagulants; Z79.899 Other long term (current) drug therapy; Z95.810 Presence of automatic (implantable) cardiac defibrillator; Z86.73 Personal history of transient ischemic attack (TIA), and cerebral infarction without residual deficits
CPT/HCPCS: 36415; 82565; 83880; 84132; 84520; 85610; 96365; 96366; G0463; J1642; J2260

== ENCOUNTER → 2020-03-28 | Outpatient (CLI) | payer MEDICARE, MEDICAID ==
[2020-03-28] VITALS (11 sets, daily range): BP systolic 108–132; BP diastolic 57–78
[~2020-03-28] MED LIST changes: +BUMETANIDE 1mg/4ml VIAL (0.25mg/ml) ONE; +BUMETANIDE 2.5mg/10ml (0.25 mg/ml) INJ IV ONE; -metOLazone 5 MG TAB ONE; -metOLazone 5 MG TAB PO ONE
[2020-03-28 14:57] LABS: BUN/Creatinine Ratio 15.9; Calcium 9.1 mg/dL (8.5-10.1); Potassium 3.9 mmol/L (3.5-5.1)
== END | disposition home or self-care (01) ==
LOC: CHF HDHVI 08:21
PROVIDERS: ATTEND Internal Medicine Cardiovascular Disease
DX: I13.0 Hypertensive heart and chronic kidney disease with heart failure and stage 1 through stage 4 chronic kidney disease, or unspecified chronic kidney disease (principal); N18.3 Chronic kidney disease, stage 3 (moderate); I50.23 Acute on chronic systolic (congestive) heart failure; I73.9 Peripheral vascular disease, unspecified; I48.91 Unspecified atrial fibrillation; Z79.01 Long term (current) use of anticoagulants; Z79.899 Other long term (current) drug therapy; Z95.810 Presence of automatic (implantable) cardiac defibrillator; Z86.73 Personal history of transient ischemic attack (TIA), and cerebral infarction without residual deficits
CPT/HCPCS: 36415; 80048; 80162; 83880; 85610; 96365; 96366; 96375; G0463; J1642; J2260; J3490

== ENCOUNTER → 2020-03-30 | Outpatient (CLI) | payer MEDICARE, MEDICAID ==
[~2020-03-30] VITALS: Ht 30.5 cm; Wt 122.7 kg
[2020-03-30] VITALS (11 sets, daily range): BP systolic 105–131; BP diastolic 64–77
[~2020-03-30] MED LIST changes: +metOLazone 5 MG TAB ONE; +metOLazone 5 MG TAB PO ONE
--- NOTE | 2020-03-30 07:30 | NUR ---
CLINIC PT ARRIVED TO THE CHF CLINIC FOR WEEKLY EVAL AND TX. A/O X4, AMBULATORY. THE PT DISCHARGE WT WAS 272.8 ON 03/28/20 AND HIS ARRIVAL WT TODAY IS 277.1 A 4.3LB WT GAIN. PT HAS C/O SOB WITH ACTIVITY.
--- NOTE | 2020-03-30 08:00 | NUR ---
Mary Jane Cath Insertion 20 gauge Mary Jane Cath inserted using sterile technique in the R upper chest with occlusive dressing over quarles needle. Patient tolerated procedure well. See e-MAR for medications given during this visit. NOTE INSERTED BY MADDI HARDY
--- NOTE | 2020-03-30 08:05 | NUR ---
MILRINONE IV STARTED @ 0.375MCG/KG/MIN VIA COLT CATH PER MD ORDERS. VSS. WILL CONTINUE TO MONITOR.
--- NOTE | 2020-03-30 10:32 | NUR ---
PT TOLERATING MILRINONE INFUSION. INFUSION SITE BENIGN. VSS. WILL CONTINUE TO MONITOR.
--- NOTE | 2020-03-30 12:09 | NUR ---
LABS DRAWN AND SENT
--- NOTE | 2020-03-30 12:17 | NUR ---
Discharge Instructions See e-MAR for any mediations given with this visit. Patient education given on disease process. Patient verbalized understanding. Previous labs reviewed. Patient discharged in stable condition with after care instructions and follow up appointment ON FRI. [place] IV [id number] ADMIN BY MADDI HARDY HEPARIN IVP ADMIN BY MADDI HARDY BUMEX IVP ADMIN BY MADDI HARDY (4090) BUMEX IVP ADMIN BY MADDI HARDY (3897) BUMEX IVP ADMIN BY AXEL HARDY (4869) POTASSIUM PO ADMIN BY MADDI HARDY METOLAZONE PO ADMIN BY MADDI HARDY
[2020-03-30 16:15] LABS: Magnesium 2.1 mg/dL (1.6-2.6); Potassium 3.8 mmol/L (3.5-5.1)
== END | disposition home or self-care (01) ==
LOC: CHF HDHVI 07:59
PROVIDERS: ATTEND Internal Medicine Cardiovascular Disease
DX: I50.23 Acute on chronic systolic (congestive) heart failure (principal); R94.4 Abnormal results of kidney function studies; E83.40 Disorders of magnesium metabolism, unspecified; E87.6 Hypokalemia; Z79.899 Other long term (current) drug therapy
CPT/HCPCS: 36415; 82565; 83735; 83880; 84132; 84520; 96365; 96366; 96374; 96375; G0463; J1642; J2260; J3490

== ENCOUNTER → 2020-04-04 | Outpatient (CLI) | payer MEDICARE, MEDICAID ==
[2020-04-04] VITALS (11 sets, daily range): BP systolic 96–122; BP diastolic 52–64
[~2020-04-04] VITALS: Ht 2.5 cm; Wt 121.3 kg
[~2020-04-04] MED LIST changes: +AMIO100T3 PO; -BUMETANIDE 1mg/4ml VIAL (0.25mg/ml) ONE; -BUMETANIDE 2.5mg/10ml (0.25 mg/ml) INJ IV ONE; +CYANOCOBALAMIN (B-12) 1000 MCG/1 ML VIAL IM ONE; +CYANOCOBALAMIN (B-12) 1000 MCG/1 ML VIAL ONE; +FURO40TA4 PO; +ISOS60TA24 PO; +MAGNESIUM OXIDE 400 MG TAB ONE; +MAGNESIUM OXIDE 400 MG TAB PO ONE; +SACU1TAB PO; +WARF2TAB PO; -metOLazone 5 MG TAB ONE; -metOLazone 5 MG TAB PO ONE
[2020-04-04 09:10] LABS: Basophils # (auto) 0 10 ^3/uL (0-0.2); Basophils % (auto) 0.4 % (0.0-2.0); Eosinophils # (auto) 0.1 10 ^3/uL (0-0.8); Hemoglobin 13.4 g/dL (13.5-17.5); Lymphocytes # (auto) 1.1 10 ^3/uL (0.4-5.4); Monocytes # (auto) 0.7 10 ^3/uL (0-1.3); Nucleated Red Blood Cells % 0.1 %
[2020-04-04 09:13] LABS: Eosinophils % (auto) 0.9 % (0.0-7.0); Hematocrit 42.8 % (41.0-53.0); Lymphocytes % (auto) 14.2 % (10.0-50.0); Mean Corpuscular Hemoglobin 23.6 pg (28.0-32.0); Mean Corpuscular Hgb Conc. 31.2 g/dL (32.0-36.0); Mean Corpuscular Volume 75.6 fL (80.0-100.0); Monocytes % (auto) 8.7 % (0.0-12.0); Neutrophils % (auto) 75.8 % (37.0-80.0); Platelet Count (auto) 257 10^3/uL (140-450); Red Blood Cells 5.66 10^6/uL (4.5-5.90); White Blood Cell 7.9 10^3/uL (4.4-10.8)
[2020-04-04 09:29] LABS: Potassium 2.8 mmol/L (3.5-5.1)
== END | disposition home or self-care (01) ==
LOC: CHF HDHVI 07:36
PROVIDERS: ATTEND Internal Medicine Cardiovascular Disease
DX: I13.0 Hypertensive heart and chronic kidney disease with heart failure and stage 1 through stage 4 chronic kidney disease, or unspecified chronic kidney disease (principal); I50.23 Acute on chronic systolic (congestive) heart failure; N18.3 Chronic kidney disease, stage 3 (moderate); I73.9 Peripheral vascular disease, unspecified; D64.9 Anemia, unspecified; I48.91 Unspecified atrial fibrillation; Z95.810 Presence of automatic (implantable) cardiac defibrillator; Z79.899 Other long term (current) drug therapy; Z79.01 Long term (current) use of anticoagulants; Z86.73 Personal history of transient ischemic attack (TIA), and cerebral infarction without residual deficits
CPT/HCPCS: 36415; 82565; 83880; 84132; 84520; 85025; 85610; 96365; 96366; 96372; G0463; J1642; J2260; J3420

== ENCOUNTER → 2020-04-06 | Outpatient (CLI) | payer MEDICARE, MEDICAID ==
[~2020-04-06] VITALS: Ht 30.5 cm; Wt 121.6 kg
[2020-04-06] VITALS (11 sets, daily range): BP systolic 97–113; BP diastolic 54–71
[~2020-04-06] MED LIST changes: -AMIO100T3 PO; -CYANOCOBALAMIN (B-12) 1000 MCG/1 ML VIAL IM ONE; -CYANOCOBALAMIN (B-12) 1000 MCG/1 ML VIAL ONE; -FURO40TA4 PO; -ISOS60TA24 PO; -MAGNESIUM OXIDE 400 MG TAB ONE; -MAGNESIUM OXIDE 400 MG TAB PO ONE; -POTASSIUM CHL 20 Meq TABLET PO ONE; -SACU1TAB PO; -WARF2TAB PO
[2020-04-06 12:17] LABS: Potassium 4.1 mmol/L (3.5-5.1)
== END | disposition home or self-care (01) ==
LOC: CHF HDHVI 07:35
PROVIDERS: ATTEND Internal Medicine Cardiovascular Disease
DX: I13.0 Hypertensive heart and chronic kidney disease with heart failure and stage 1 through stage 4 chronic kidney disease, or unspecified chronic kidney disease (principal); E87.6 Hypokalemia; I50.22 Chronic systolic (congestive) heart failure; N18.3 Chronic kidney disease, stage 3 (moderate); I48.91 Unspecified atrial fibrillation; R94.4 Abnormal results of kidney function studies; I42.8 Other cardiomyopathies; I73.9 Peripheral vascular disease, unspecified; G89.29 Other chronic pain; E66.9 Obesity, unspecified; Z68.34 Body mass index [BMI] 34.0-34.9, adult; Z79.899 Other long term (current) drug therapy; Z79.01 Long term (current) use of anticoagulants; Z95.810 Presence of automatic (implantable) cardiac defibrillator; Z86.73 Personal history of transient ischemic attack (TIA), and cerebral infarction without residual deficits
CPT/HCPCS: 36415; 82565; 84132; 84520; 96365; 96366; G0463; J1642; J2260

== ENCOUNTER → 2020-04-11 | Outpatient (CLI) | payer MEDICARE, MEDICAID ==
[2020-04-11] VITALS (11 sets, daily range): BP systolic 102–139; BP diastolic 64–87
--- NOTE | 2020-04-11 07:36 | NUR ---
CLINIC PT ARRIVED TO THE CHF CLINIC FOR WEEKLY CHF EVAL AND TX PER MD ORDERS. A/OX4, AMBULATORY. BREATHING IS EVEN AND UNLABORED.
--- NOTE | 2020-04-11 08:00 | NUR ---
MILRINONE IV STARTED @ 0.375 MCG/KG/MIN PER MD ORDERS. VSS. WILL CONTINUE TO MONITOR.
--- NOTE | 2020-04-11 10:21 | NUR ---
PT TOLERATING MILRINONE INFUSION. INFUSION SITE BENIGN. VSS. WILL CONTINUE TO MONITOR.
--- NOTE | 2020-04-11 12:29 | NUR ---
Discharge Instructions See e-MAR for any mediations given with this visit. Patient education given on disease process. Patient verbalized understanding. Previous labs reviewed. Patient discharged in stable condition with after care instructions and follow up appointment ON . NOTE MILRINONE IV [id number] ADMIN BY MADDI HARDY HEPARIN IVP ADMIN BY MADDI HARDY
== END | disposition home or self-care (01) ==
LOC: CHF HDHVI 08:02
PROVIDERS: ATTEND Internal Medicine Cardiovascular Disease
DX: I13.0 Hypertensive heart and chronic kidney disease with heart failure and stage 1 through stage 4 chronic kidney disease, or unspecified chronic kidney disease (principal); I50.22 Chronic systolic (congestive) heart failure; N18.3 Chronic kidney disease, stage 3 (moderate); I48.91 Unspecified atrial fibrillation; I73.9 Peripheral vascular disease, unspecified; Z79.899 Other long term (current) drug therapy; Z79.01 Long term (current) use of anticoagulants; Z95.810 Presence of automatic (implantable) cardiac defibrillator; Z86.73 Personal history of transient ischemic attack (TIA), and cerebral infarction without residual deficits
CPT/HCPCS: 96365; 96366; G0463; J1642; J2260

== ENCOUNTER → 2020-04-13 | Outpatient (CLI) | payer MEDICARE, MEDICAID ==
[2020-04-13] VITALS (11 sets, daily range): BP systolic 93–126; BP diastolic 49–79
--- NOTE | 2020-04-13 07:50 | NUR ---
CLINIC PT ARRIVED TO THE CHF CLINIC FOR WEEKLY CHF EVAL AND TX. A/OX4, AMBULATORY. PT HAS A 3.5 LB WT INCREASE SINCE LAST VISIT ON 04/11/20. BREATHING IS EVEN AND UNLABORED.
--- NOTE | 2020-04-13 08:06 | NUR ---
MILRINONE IV STARTED @ 0.375 MCG/KG/MIN PER MD ORDERS. VSS. WILL CONTINUE TO MONITOR.
--- NOTE | 2020-04-13 10:03 | NUR ---
PT TOLERATING MILRINONE INFUSION. INFUSION SITE BENIGN. VSS. WILL CONTINUE TO MONITOR
[2020-04-13 12:12] LABS: Calcium 8.7 mg/dL (8.5-10.1); Magnesium 2.2 mg/dL (1.6-2.6); Potassium 3.9 mmol/L (3.5-5.1)
--- NOTE | 2020-04-13 12:47 | NUR ---
Discharge Instructions See e-MAR for any mediations given with this visit. Patient education given on disease process. Patient verbalized understanding. Previous labs reviewed. Patient discharged in stable condition with after care instructions and follow up appointment ON FRI. NOTE MILRINONE [id number] ADMIN BY MADDI HARDY HEPARIN IVP ADMIN BY MADDI HARDY
== END | disposition home or self-care (01) ==
LOC: CHF HDHVI 07:56
PROVIDERS: ATTEND Internal Medicine Cardiovascular Disease
DX: I13.0 Hypertensive heart and chronic kidney disease with heart failure and stage 1 through stage 4 chronic kidney disease, or unspecified chronic kidney disease (principal); I50.23 Acute on chronic systolic (congestive) heart failure; N18.3 Chronic kidney disease, stage 3 (moderate); I42.8 Other cardiomyopathies; I73.9 Peripheral vascular disease, unspecified; I48.91 Unspecified atrial fibrillation; E83.40 Disorders of magnesium metabolism, unspecified; G89.4 Chronic pain syndrome; E66.9 Obesity, unspecified; Z79.01 Long term (current) use of anticoagulants; Z86.73 Personal history of transient ischemic attack (TIA), and cerebral infarction without residual deficits; Z95.810 Presence of automatic (implantable) cardiac defibrillator; Z79.899 Other long term (current) drug therapy
CPT/HCPCS: 36415; 80048; 83735; 83880; 96365; 96366; G0463; J1642; J2260

== ENCOUNTER → 2020-04-18 | Outpatient (CLI) | payer MEDICARE, MEDICAID ==
[2020-04-18] VITALS (12 sets, daily range): BP systolic 99–115; BP diastolic 54–71
--- NOTE | 2020-04-18 07:30 | NUR ---
CLINIC PT ARRIVED TO THE CHF CLINIC FOR WEEKLY CHF EVAL AND TX. A/OX4, AMBULATORY. BREATHING IS EVEN AND UNLABORED.
--- NOTE | 2020-04-18 07:52 | NUR ---
MILRINONE IV STARTED @ 0.375 MCK/KG/MIN PER MD ORDERS. VSS. WILL CONTINUE TO MONITOR.
--- NOTE | 2020-04-18 09:39 | NUR ---
PT TOLERATING MILRINONE INFUSION. INFUSION SITE BENIGN. VSS. WILL CONTINUE TO MONITOR.
--- NOTE | 2020-04-18 12:26 | NUR ---
Mary Jane Cath Removal Horowitz needle D/C'd after Heparin flush per protocol. See e-MAR for medications given during this visit. Sterile occlusive dressing to site. Patient tolerated procedure well. Site benign post infusion. NOTE REMOVED BY AXEL HARDY
--- NOTE | 2020-04-18 12:31 | NUR ---
Discharge Instructions See e-MAR for any mediations given with this visit. Patient education given on disease process. Patient verbalized understanding. Previous labs reviewed. Patient discharged in stable condition with after care instructions and follow up appointment ON FRIDAY NOTE MILRINONE IV [id number] ADMIN BY MADDI HARDY HEPARIN IVP ADMIN BY MADDI HARDY
== END | disposition home or self-care (01) ==
LOC: CHF HDHVI 07:45
PROVIDERS: ATTEND Internal Medicine Cardiovascular Disease
DX: I13.0 Hypertensive heart and chronic kidney disease with heart failure and stage 1 through stage 4 chronic kidney disease, or unspecified chronic kidney disease (principal); I50.22 Chronic systolic (congestive) heart failure; N18.3 Chronic kidney disease, stage 3 (moderate); I48.91 Unspecified atrial fibrillation; E66.9 Obesity, unspecified; G89.4 Chronic pain syndrome; Z79.899 Other long term (current) drug therapy; Z86.73 Personal history of transient ischemic attack (TIA), and cerebral infarction without residual deficits; Z79.01 Long term (current) use of anticoagulants; Z95.810 Presence of automatic (implantable) cardiac defibrillator; Z68.34 Body mass index [BMI] 34.0-34.9, adult
CPT/HCPCS: 96365; 96366; G0463; J1642; J2260

== ENCOUNTER → 2020-04-20 | Outpatient (CLI) | payer MEDICARE, MEDICAID ==
[2020-04-20] VITALS (11 sets, daily range): BP systolic 102–116; BP diastolic 48–81
[~2020-04-20] MED LIST changes: +BUMETANIDE 2.5mg/10ml (0.25 mg/ml) INJ IV ONE; +BUMETANIDE INJECTION 10 ML ONE; +CYANOCOBALAMIN (B-12) 1000 MCG/1 ML VIAL IM ONE; +CYANOCOBALAMIN (B-12) 1000 MCG/1 ML VIAL ONE; +MILRINONE 20MG/100ML 100 ML IV SCH; +POTASSIUM CHL 20 Meq TABLET PO ONE
--- NOTE | 2020-04-20 07:39 | NUR ---
PT. TO CHF CLINIC FOR MILRINONE INFUSION PER ORDER. PT. WITH 3 LB. WT GAIN SINCE LAST TX WITH STATED NON-COMPLIANCE WITH DIETARY RESTRICTIONS. PT. ON HOME O2, PLACE AT 1.5 L/MIN AT THIS TIME. ORDERS RECEIVED AND CARRIED OUT. SEE NSG. ASSESS.
--- NOTE | 2020-04-20 08:05 | NUR ---
MEDS: PT. MEDICATED WITH BUMEX 1 MG SIVP PER MD ORDER.
--- NOTE | 2020-04-20 08:08 | NUR ---
MEDS: MILRINONE DRIP STARTED AT 0.375 MCG/KG/MIN PER MD ORDER WITH NO TITRATION. VSS.
--- NOTE | 2020-04-20 08:12 | NUR ---
MEDS: PT. MEDICATED WITH KDUR 20 MEQ PO PER MD ORDER.
--- NOTE | 2020-04-20 08:12 | NUR ---
MEDS: PT. MEDICATED WITH VIT. B12 1000MCG IM LFT DELT. PER MD ORDER.
--- NOTE | 2020-04-20 08:20 | NUR ---
ACTIVITY:PT. TO AND FROM BR VIA AMBULATION WITHOUT ASSIST. IV MEDS RESUMED. 111/, 67, 20
--- NOTE | 2020-04-20 09:30 | NUR ---
MULTIPLE TRIPS TO AND FROM RESTROOM WITHOUT ASSIST. VSS. PT. WITH NO C/O.
--- NOTE | 2020-04-20 11:00 | NUR ---
PT. TAKING PO NUTRITION. NO C/O, VSS
[2020-04-20 12:08] LABS: Potassium 3.8 mmol/L (3.5-5.1)
--- NOTE | 2020-04-20 12:55 | NUR ---
Discharge Instructions See e-MAR for any mediations given with this visit. Patient education given on disease process. Patient verbalized understanding. Previous labs reviewed. Patient discharged in stable condition with after care instructions and follow up appointment. PT. TO RTC NEXT FRIDAY. PT. NOT ON O2 WITH STATED IMPROVEMENT IN SOB. RA SATS 94%.
== END | disposition home or self-care (01) ==
LOC: CHF HDHVI 07:29
PROVIDERS: ATTEND Internal Medicine Cardiovascular Disease
DX: I13.0 Hypertensive heart and chronic kidney disease with heart failure and stage 1 through stage 4 chronic kidney disease, or unspecified chronic kidney disease (principal); N18.3 Chronic kidney disease, stage 3 (moderate); I50.23 Acute on chronic systolic (congestive) heart failure; I25.10 Atherosclerotic heart disease of native coronary artery without angina pectoris; D64.9 Anemia, unspecified; I73.9 Peripheral vascular disease, unspecified; I42.8 Other cardiomyopathies; I48.91 Unspecified atrial fibrillation; R94.4 Abnormal results of kidney function studies; G89.4 Chronic pain syndrome; E66.9 Obesity, unspecified; Z68.34 Body mass index [BMI] 34.0-34.9, adult; Z95.810 Presence of automatic (implantable) cardiac defibrillator; Z79.899 Other long term (current) drug therapy; Z79.01 Long term (current) use of anticoagulants; Z86.73 Personal history of transient ischemic attack (TIA), and cerebral infarction without residual deficits
CPT/HCPCS: 36415; 82565; 83880; 84132; 84520; 96365; 96366; 96372; 96375; G0463; J1642; J2260; J3420; 96374

== ENCOUNTER → 2020-04-25 | Outpatient (CLI) | payer MEDICARE, MEDICAID ==
[2020-04-25] VITALS (11 sets, daily range): BP systolic 98–130; BP diastolic 51–75
[~2020-04-25] MED LIST changes: -BUMETANIDE 2.5mg/10ml (0.25 mg/ml) INJ IV ONE; -BUMETANIDE INJECTION 10 ML ONE; -CYANOCOBALAMIN (B-12) 1000 MCG/1 ML VIAL IM ONE; -CYANOCOBALAMIN (B-12) 1000 MCG/1 ML VIAL ONE; -MILRINONE 20MG/100ML 100 ML IV SCH; -POTASSIUM CHL 20 Meq TABLET PO ONE
--- NOTE | 2020-04-25 07:38 | NUR ---
CLINIC PT ARRIVED TO THE CHF CLINIC FOR WEEKLY CHF EVAL AND TX. A/OX4, AMBULATORY. BREATHING IS EVEN AND UNLABORED. PT IS DOWN 1.5 LBS SINCE LAST VISIT ON 04/20/20.
--- NOTE | 2020-04-25 07:47 | NUR ---
MILRINONE IV STARTED @ 0.375MCG/KG/MIN PER MD ORDERS. VSS. WILL CONTINUE TO MONITOR.
--- NOTE | 2020-04-25 10:59 | NUR ---
PT TOLERATING MILRINONE INFUSION. INFUSION SITE BENIGN. VSS. WILL CONTINUE TO MONITOR.
--- NOTE | 2020-04-25 12:08 | NUR ---
Discharge Instructions See e-MAR for any mediations given with this visit. Patient education given on disease process. Patient verbalized understanding. Previous labs reviewed. Patient discharged in stable condition with after care instructions and follow up appointment ON FRIDAY. NOTE MILRINONE IV [id number] ADMIN BY MADDI HARDY HEPARIN IVP ADMIN BY MADDI HRADY
== END | disposition home or self-care (01) ==
LOC: CHF HDHVI 07:57
PROVIDERS: ATTEND Internal Medicine Cardiovascular Disease
DX: I13.0 Hypertensive heart and chronic kidney disease with heart failure and stage 1 through stage 4 chronic kidney disease, or unspecified chronic kidney disease (principal); I50.22 Chronic systolic (congestive) heart failure; N18.3 Chronic kidney disease, stage 3 (moderate); R53.83 Other fatigue; I48.91 Unspecified atrial fibrillation; I73.9 Peripheral vascular disease, unspecified; I42.8 Other cardiomyopathies; G89.4 Chronic pain syndrome; E66.9 Obesity, unspecified; Z68.34 Body mass index [BMI] 34.0-34.9, adult; Z95.810 Presence of automatic (implantable) cardiac defibrillator; Z79.899 Other long term (current) drug therapy
CPT/HCPCS: 96365; 96366; G0463; J1642; J2260

== ENCOUNTER → 2020-04-27 | Outpatient (CLI) | payer MEDICARE, MEDICAID ==
[2020-04-27] VITALS (10 sets, daily range): BP systolic 93–129; BP diastolic 46–67
--- NOTE | 2020-04-27 09:25 | NUR ---
CLINIC PT ARRIVED TO THE CHF CLINIC FOR WEEKLY CHF EVAL AND TX. A/OX4, AMBULATORY. BREATHING IS EVEN AND UNLABORED.
--- NOTE | 2020-04-27 09:43 | NUR ---
6MWT DONE BY CAMI GÓMEZ PT DID NOT COMPLETE THE 6MWT HE HAD A REMAINING 1MIN 15 SEC. HE DID A TOTAL OF 180M. HE STOPPED DUE TO BACK PAIN. PT STATES THAT HE SLEEPS ON AN OLD MATTRESS WHICH CONTRIBUTES TO THE PAIN. HE HAD A 150M DECREASE SINCE LAST 6MWT ON 09/02/19
--- NOTE | 2020-04-27 09:49 | NUR ---
MILRINONE IV STARTED @ 0.375MCG/KG/MIN PER MD ORDERS. VSS. WILL CONTINUE TO MONITOR
--- NOTE | 2020-04-27 11:52 | NUR ---
PT TOLERATING MILRINONE INFUSION. INFUSION SITE BENIGN. VSS. WILL CONTINUE TO MONITOR.
[2020-04-27 12:30] LABS: Calcium 8.9 mg/dL (8.5-10.1); Potassium 4.3 mmol/L (3.5-5.1)
[2020-04-27 12:34] LABS: BUN/Creatinine Ratio 17.5; Magnesium 2.5 mg/dL (1.6-2.6)
--- NOTE | 2020-04-27 14:37 | NUR ---
Discharge Instructions See e-MAR for any mediations given with this visit. Patient education given on disease process. Patient verbalized understanding. Previous labs reviewed. Patient discharged in stable condition with after care instructions and follow up appointment ON FRI. NOTE MILRINONE IV [id number] ADMIN BY MADDI HARDY HEPARIN IVP ADMIN BY MADDI HARDY
== END | disposition home or self-care (01) ==
LOC: CHF HDHVI 09:16
PROVIDERS: ATTEND Internal Medicine Cardiovascular Disease
DX: I13.0 Hypertensive heart and chronic kidney disease with heart failure and stage 1 through stage 4 chronic kidney disease, or unspecified chronic kidney disease (principal); I50.23 Acute on chronic systolic (congestive) heart failure; N18.3 Chronic kidney disease, stage 3 (moderate); E83.40 Disorders of magnesium metabolism, unspecified; I48.91 Unspecified atrial fibrillation; I42.8 Other cardiomyopathies; I73.9 Peripheral vascular disease, unspecified; G89.4 Chronic pain syndrome; E66.9 Obesity, unspecified; Z68.34 Body mass index [BMI] 34.0-34.9, adult; Z95.810 Presence of automatic (implantable) cardiac defibrillator; Z79.01 Long term (current) use of anticoagulants; Z86.73 Personal history of transient ischemic attack (TIA), and cerebral infarction without residual deficits; Z79.899 Other long term (current) drug therapy
CPT/HCPCS: 36415; 80048; 83735; 83880; 94618; 96365; 96366; G0463; J1642; J2260

== ENCOUNTER → 2020-05-02 | Outpatient (CLI) | payer MEDICARE, MEDICAID ==
[2020-05-02] VITALS (12 sets, daily range): BP systolic 100–123; BP diastolic 56–77
--- NOTE | 2020-05-02 08:15 | NUR ---
CLINIC PT ARRIVED TO THE CHF CLINIC FOR WEEKLY CHF EVAL AND SCHEDULED MILRINONE INFUSION. A/OX4, AMBULATORY. BREATHING IS EVEN AND UNLABORED.
--- NOTE | 2020-05-02 08:29 | NUR ---
Mary Jane Cath Insertion 20 gauge Mary Jane Cath inserted using sterile technique in the R upper chest with occlusive dressing over quarles needle. Patient tolerated procedure well. Ordered labs drawn and sent. See e-MAR for medications given during this visit. NOTE INSERTED BY YULY HARDY
--- NOTE | 2020-05-02 08:32 | NUR ---
MILRINONE IV STARTED @ 0.375 MCG/KG/MIN PER MD ORDERS. VSS. WILL CONTINUE TO MONITOR
--- NOTE | 2020-05-02 10:18 | NUR ---
PT TOLERATING MILRINONE INFUSION. PORT SITE BENIGN. VSS. WILL CONTINUE TO MONITOR.
[2020-05-02 12:12] LABS: Basophils # (auto) 0 10 ^3/uL (0-0.2); Basophils % (auto) 0.7 % (0.0-2.0); Eosinophils # (auto) 0.1 10 ^3/uL (0-0.8); Hemoglobin 12.9 g/dL (13.5-17.5); Monocytes # (auto) 0.4 10 ^3/uL (0-1.3); Neutrophils # (auto) 3.9 10 ^3/uL (1.6-8.6)
[2020-05-02 12:14] LABS: Hematocrit 41.5 % (41.0-53.0); Lymphocytes # (auto) 1.1 10 ^3/uL (0.4-5.4); Lymphocytes % (auto) 19.5 % (10.0-50.0); Mean Corpuscular Hemoglobin 23.4 pg (28.0-32.0); Mean Corpuscular Hgb Conc. 31.1 g/dL (32.0-36.0); Mean Corpuscular Volume 75.2 fL (80.0-100.0); Monocytes % (auto) 6.9 % (0.0-12.0); Neutrophils % (auto) 71.9 % (37.0-80.0); Nucleated Red Blood Cells % 0.1 %; Platelet Count (auto) 227 10^3/uL (140-450); Red Blood Cells 5.52 10^6/uL (4.5-5.90); White Blood Cell 5.5 10^3/uL (4.4-10.8)
[2020-05-02 12:15] LABS: Albumin 3.4 g/dL (3.4-5.0); Calcium 8.6 mg/dL (8.5-10.1); Potassium 3.8 mmol/L (3.5-5.1)
[2020-05-02 12:20] LABS: BUN/Creatinine Ratio 14.1; Bilirubin, Total 0.4 mg/dL (0.2-1.0); Total Protein 7.7 g/dL (6.4-8.2)
[2020-05-02 12:30] LABS: Red Cell Distribution Width 20.8 % (11.8-14.3)
--- NOTE | 2020-05-02 13:20 | NUR ---
Discharge Instructions See e-MAR for any mediations given with this visit. Patient education given on disease process. Patient verbalized understanding. Previous labs reviewed. Patient discharged in stable condition with after care instructions and follow up appointment ON . NOTE MILRINONE IV [id number] ADMIN BY YULY HARDY HEPARIN IVP ADMIN BY MADDI HARDY
== END | disposition home or self-care (01) ==
LOC: CHF HDHVI 08:28
PROVIDERS: ATTEND Internal Medicine Cardiovascular Disease
DX: I13.0 Hypertensive heart and chronic kidney disease with heart failure and stage 1 through stage 4 chronic kidney disease, or unspecified chronic kidney disease (principal); I50.43 Acute on chronic combined systolic (congestive) and diastolic (congestive) heart failure; N18.3 Chronic kidney disease, stage 3 (moderate); I25.10 Atherosclerotic heart disease of native coronary artery without angina pectoris; I42.8 Other cardiomyopathies; I73.9 Peripheral vascular disease, unspecified; K90.9 Intestinal malabsorption, unspecified; I48.91 Unspecified atrial fibrillation; G89.4 Chronic pain syndrome; E66.9 Obesity, unspecified; Z68.34 Body mass index [BMI] 34.0-34.9, adult; Z13.1 Encounter for screening for diabetes mellitus; Z79.899 Other long term (current) drug therapy; Z95.810 Presence of automatic (implantable) cardiac defibrillator; Z79.01 Long term (current) use of anticoagulants; Z86.73 Personal history of transient ischemic attack (TIA), and cerebral infarction without residual deficits
CPT/HCPCS: 36415; 80053; 82306; 83036; 85025; 96365; 96366; G0463; J1642; J2260

== ENCOUNTER → 2020-05-04 | Outpatient (CLI) | payer MEDICARE, MEDICAID ==
[~2020-05-04] VITALS: Ht 30.5 cm; Wt 124.4 kg
[2020-05-04] VITALS (11 sets, daily range): BP systolic 99–127; BP diastolic 53–87
== END | disposition home or self-care (01) ==
LOC: CHF HDHVI 08:40
PROVIDERS: ATTEND Internal Medicine Cardiovascular Disease
DX: I13.0 Hypertensive heart and chronic kidney disease with heart failure and stage 1 through stage 4 chronic kidney disease, or unspecified chronic kidney disease (principal); I50.42 Chronic combined systolic (congestive) and diastolic (congestive) heart failure; N18.3 Chronic kidney disease, stage 3 (moderate); R53.83 Other fatigue; I48.91 Unspecified atrial fibrillation; I42.8 Other cardiomyopathies; I73.9 Peripheral vascular disease, unspecified; G89.4 Chronic pain syndrome; E66.9 Obesity, unspecified; Z86.73 Personal history of transient ischemic attack (TIA), and cerebral infarction without residual deficits; Z79.899 Other long term (current) drug therapy; Z79.01 Long term (current) use of anticoagulants
CPT/HCPCS: 85610; 96365; 96366; G0463; J1642; J2260

== ENCOUNTER → 2020-05-09 | Outpatient (CLI) | payer MEDICARE, MEDICAID ==
[~2020-05-09] VITALS: Ht 30.5 cm; Wt 123.1 kg
[2020-05-09] VITALS (11 sets, daily range): BP systolic 94–115; BP diastolic 47–82
--- NOTE | 2020-05-09 08:20 | NUR ---
PT ARRIVED TO THE CHF CLINIC FOR SCHEDULED WEEKLY CHF EVAL AND TX. A/OX4, AMBULATORY. BREATHING IS EVEN AND UNLABORED.
--- NOTE | 2020-05-09 08:42 | NUR ---
MILRINONE STARTED @ 0.375 MCG/KG/MIN PER MD ORDERS. VSS. WILL CONTINUE TO MONITOR.
--- NOTE | 2020-05-09 10:36 | NUR ---
PT TOLERATING MILRINONE IV. PORT SITE BENIGN. VSS. WILL CONTINUE TO MONITOR.
--- NOTE | 2020-05-09 13:14 | NUR ---
Discharge Instructions See e-MAR for any mediations given with this visit. Patient education given on disease process. Patient verbalized understanding. Previous labs reviewed. Patient discharged in stable condition with after care instructions and follow up appointment [place] IV [id number] ADMIN BY MADDI HARDY HEPARIN IVP ADMIN BY MADDI HARDY
== END | disposition home or self-care (01) ==
LOC: CHF HDHVI 08:24
PROVIDERS: ATTEND Internal Medicine Cardiovascular Disease
DX: I13.0 Hypertensive heart and chronic kidney disease with heart failure and stage 1 through stage 4 chronic kidney disease, or unspecified chronic kidney disease (principal); I50.42 Chronic combined systolic (congestive) and diastolic (congestive) heart failure; N18.3 Chronic kidney disease, stage 3 (moderate); I48.91 Unspecified atrial fibrillation; I73.9 Peripheral vascular disease, unspecified; Z86.73 Personal history of transient ischemic attack (TIA), and cerebral infarction without residual deficits; Z79.01 Long term (current) use of anticoagulants
CPT/HCPCS: 96365; 96366; G0463; J1642; J2260

== ENCOUNTER → 2020-05-11 | Outpatient (CLI) | payer MEDICARE, MEDICAID ==
[2020-05-11] VITALS (11 sets, daily range): BP systolic 95–112; BP diastolic 50–64
[~2020-05-11] MED LIST changes: +MVI in SODIUM CHLORIDE 0.9% 1,010 ML ONE; +MVI in SODIUM CHLORIDE 0.9% 500 ML IVB ONE
--- NOTE | 2020-05-11 08:22 | NUR ---
CLINIC PT ARRIVED TO THE CHF CLINIC FOR WEEKLY CHF EVAL AND TX. A/OX4, AMBULATORY. BREATHING IS EVEN AND UNLABORED.
--- NOTE | 2020-05-11 08:36 | NUR ---
MILRINONE IV STARTED @ 0.375MCG/KG/MIN PER MD ORDERS. VSS. WILL CONTINUE TO MONITOR.
--- NOTE | 2020-05-11 11:21 | NUR ---
PT TOLERATING MILRINONE INFUSION. PORT SITE BENIGN. VSS.WILL CONTINUE TO MONITOR.
--- NOTE | 2020-05-11 13:13 | NUR ---
Mary Jane Cath Removal Horowitz needle D/C'd after Heparin flush per protocol. See e-MAR for medications given during this visit. Sterile occlusive dressing to site. Patient tolerated procedure well. Site benign post infusion. NOTE REMOVED BY CARLY HARDY
--- NOTE | 2020-05-11 13:14 | NUR ---
Discharge Instructions See e-MAR for any mediations given with this visit. Patient education given on disease process. Patient verbalized understanding. Previous labs reviewed. Patient discharged in stable condition with after care instructions and follow up appointment TOMORROW WITH MD JACOBSEN. NOTE MILRINONE IV [id number] ADMIN BY MADDI HARDY HEPARIN IVP ADMIN BY CARLY HARDY MVI IV [id number] ADMIN BY YULY HARDY INR DONE BY CAMI GÓMEZ (1.5) Addendum: 05/11/20 at 1339 by MADDI PÉREZ RN RN HI THE PT INR IS 1.5 HE IS CURRENTLY TAKING COUMADIN 5MG. PT HAS NOT MISSED ANY DOSES. PT INSTRUCTED TO INCREASE COUMADIN TO 6MG. PT VERBALIZED UNDERSTANDING.
== END | disposition home or self-care (01) ==
LOC: CHF HDHVI 08:35
PROVIDERS: ATTEND Internal Medicine Cardiovascular Disease
DX: I13.0 Hypertensive heart and chronic kidney disease with heart failure and stage 1 through stage 4 chronic kidney disease, or unspecified chronic kidney disease (principal); I50.42 Chronic combined systolic (congestive) and diastolic (congestive) heart failure; N18.3 Chronic kidney disease, stage 3 (moderate); R53.83 Other fatigue; E86.0 Dehydration; I25.10 Atherosclerotic heart disease of native coronary artery without angina pectoris; I42.8 Other cardiomyopathies; I73.9 Peripheral vascular disease, unspecified; I48.91 Unspecified atrial fibrillation; G89.4 Chronic pain syndrome; E66.9 Obesity, unspecified; Z68.34 Body mass index [BMI] 34.0-34.9, adult; Z95.810 Presence of automatic (implantable) cardiac defibrillator; Z79.01 Long term (current) use of anticoagulants; Z86.73 Personal history of transient ischemic attack (TIA), and cerebral infarction without residual deficits
CPT/HCPCS: 85610; 96365; 96366; 96368; G0463; J1642; J2260; J3411; J3475; 96367

== ENCOUNTER → 2020-05-16 | Outpatient (CLI) | payer MEDICARE, MEDICAID ==
[2020-05-16] VITALS (12 sets, daily range): BP systolic 100–121; BP diastolic 52–73
[~2020-05-16] MED LIST changes: +CYANOCOBALAMIN (B-12) 1000 MCG/1 ML VIAL IM ONE; +CYANOCOBALAMIN (B-12) 1000 MCG/1 ML VIAL ONE; -MVI in SODIUM CHLORIDE 0.9% 1,010 ML ONE; -MVI in SODIUM CHLORIDE 0.9% 500 ML IVB ONE
--- NOTE | 2020-05-16 08:35 | NUR ---
CLINIC PT ARRIVED TO THE CHF CLINIC FOR WEEKLY CHF EVAL AND TX. A/OX4 AMBULATOR, BREATHING IS EVEN AND UNLABORED. PT HAS A 2.7LB WT LOSS SINCE LAST VISIT ON 05/11/20. PT STATES HE HAS BEEN CHANGING EATING HABIT AND EXERCISE ROUTINE.
--- NOTE | 2020-05-16 08:52 | NUR ---
MILRINONE IV STARTED @ 0.375MCG/KG/MIN PER MD ORDERS. VSS. WILL CONTINUE TO MONITOR.
--- NOTE | 2020-05-16 11:03 | NUR ---
PT TOLERATING MILRINONE INFUSION. PORT SITE BENIGN. VSS. WILL CONTINUE TO MONITOR.
[2020-05-16 12:05] LABS: Basophils # (auto) 0 10 ^3/uL (0-0.2); Eosinophils # (auto) 0.1 10 ^3/uL (0-0.8); Lymphocytes # (auto) 1.1 10 ^3/uL (0.4-5.4)
[2020-05-16 12:07] LABS: Basophils % (auto) 0.5 % (0.0-2.0); Eosinophils % (auto) 1.1 % (0.0-7.0); Hemoglobin 13.2 g/dL (13.5-17.5); Lymphocytes % (auto) 17.3 % (10.0-50.0); Mean Corpuscular Hemoglobin 23.4 pg (28.0-32.0); Mean Corpuscular Hgb Conc. 31.4 g/dL (32.0-36.0); Mean Corpuscular Volume 74.5 fL (80.0-100.0); Monocytes # (auto) 0.6 10 ^3/uL (0-1.3); Monocytes % (auto) 9.1 % (0.0-12.0); Neutrophils # (auto) 4.5 10 ^3/uL (1.6-8.6); Nucleated Red Blood Cells % 0.2 %; Platelet Count (auto) 253 10^3/uL (140-450); Red Blood Cells 5.63 10^6/uL (4.5-5.90); White Blood Cell 6.2 10^3/uL (4.4-10.8)
[2020-05-16 12:18] LABS: Potassium 3.8 mmol/L (3.5-5.1)
[2020-05-16 12:24] LABS: Calcium 8.9 mg/dL (8.5-10.1); Magnesium 2.5 mg/dL (1.6-2.6)
[2020-05-16 12:32] LABS: Red Cell Distribution Width 21.3 % (11.8-14.3)
--- NOTE | 2020-05-16 13:28 | NUR ---
Mary Jane Cath Removal Horowitz needle D/C'd after Heparin flush per protocol. See e-MAR for medications given during this visit. Sterile occlusive dressing to site. Patient tolerated procedure well. Site benign post infusion. NOTE REMOVED BY MADID HARDY
--- NOTE | 2020-05-16 13:31 | NUR ---
Discharge Instructions See e-MAR for any mediations given with this visit. Patient education given on disease process. Patient verbalized understanding. Previous labs reviewed. Patient discharged in stable condition with after care instructions and follow up appointment ON . NOTE MILRINONE IV [id number] ADMIN BY MADDI HARDY HEPARIN IVP ADMIN BY MADDI HARDY VIT B12 IM ADMIN BY MADDI HARDY R DELTOID LOT# [id number] EXP 01/12
== END | disposition home or self-care (01) ==
LOC: CHF HDHVI 08:32
PROVIDERS: ATTEND Internal Medicine Cardiovascular Disease
DX: I13.0 Hypertensive heart and chronic kidney disease with heart failure and stage 1 through stage 4 chronic kidney disease, or unspecified chronic kidney disease (principal); I50.23 Acute on chronic systolic (congestive) heart failure; N18.3 Chronic kidney disease, stage 3 (moderate); E83.40 Disorders of magnesium metabolism, unspecified; D64.9 Anemia, unspecified; R53.83 Other fatigue; I25.10 Atherosclerotic heart disease of native coronary artery without angina pectoris; I42.8 Other cardiomyopathies; I73.9 Peripheral vascular disease, unspecified; I48.91 Unspecified atrial fibrillation; G89.4 Chronic pain syndrome; E66.9 Obesity, unspecified; Z68.34 Body mass index [BMI] 34.0-34.9, adult; Z95.810 Presence of automatic (implantable) cardiac defibrillator; Z86.73 Personal history of transient ischemic attack (TIA), and cerebral infarction without residual deficits; Z79.01 Long term (current) use of anticoagulants
CPT/HCPCS: 36415; 80048; 83735; 83880; 85025; 96365; 96366; 96372; G0463; J1642; J2260; J3420

== ENCOUNTER 2020-05-18 18:19 | Inpatient (IN) | payer MEDICARE, MEDICAID ==
[~2020-05-18] VITALS: Ht 172.7 cm; Wt 124.1 kg
[~2020-05-18 18:19] MED LIST changes: -MILRINONE 20MG/100ML 100 ML IV ONE
[2020-05-18] MEDS ORDERED: ACETAMINOPHEN 325 MG TAB PO ONE (19:00)
[2020-05-18 20:25] LABS: Basophils # (auto) 0 10 ^3/uL (0-0.2); Basophils % (auto) 0.2 % (0.0-2.0); Eosinophils # (auto) 0 10 ^3/uL (0-0.8); Hemoglobin 13.1 g/dL (13.5-17.5)
[2020-05-18 20:27] LABS: Eosinophils % (auto) 0.2 % (0.0-7.0); Hematocrit 42.2 % (41.0-53.0); Lymphocytes # (auto) 0.9 10 ^3/uL (0.4-5.4); Lymphocytes % (auto) 7.4 % (10.0-50.0); Mean Corpuscular Hemoglobin 22.9 pg (28.0-32.0); Mean Corpuscular Hgb Conc. 31.1 g/dL (32.0-36.0); Mean Corpuscular Volume 73.6 fL (80.0-100.0); Monocytes # (auto) 1.5 10 ^3/uL (0-1.3); Monocytes % (auto) 11.8 % (0.0-12.0); Neutrophils # (auto) 10.1 10 ^3/uL (1.6-8.6); Neutrophils % (auto) 80.4 % (37.0-80.0); Nucleated Red Blood Cells % 0.1 %; Platelet Count (auto) 258 10^3/uL (140-450); Red Blood Cells 5.74 10^6/uL (4.5-5.90); White Blood Cell 12.5 10^3/uL (4.4-10.8)
[2020-05-18 20:37] LABS: Red Cell Distribution Width 20.8 % (11.8-14.3)
[2020-05-18 20:40] LABS: Potassium 4.4 mmol/L (3.5-5.1)
[2020-05-18 20:46] LABS: Albumin 3.5 g/dL (3.4-5.0); BUN/Creatinine Ratio 12.7; Bilirubin, Total 0.4 mg/dL (0.2-1.0); Total Protein 8.4 g/dL (6.4-8.2)
[2020-05-18 22:33] LABS: Urine Bacteria FEW /hpf (None Seen); Urine Blood Negative /uL (Negative); Urine Mucus FEW (None Seen); Urine Specific Gravity 1.014 (1.001-1.035); Urine WBC 1 /hpf (0 - 3)
[2020-05-18] MEDS ORDERED: ENOXAPARIN SOD 100 MG/1 ML SYRINGE SC ONE (23:15)
[2020-05-19 00:01] LABS: INR 1.68 (0.9-1.15); Partial Thromboplastin Time 41.6 sec (23.0-31.2)
[2020-05-19] MEDS ORDERED: cefTRIAXone 1GM/50ML D5W 50 ML IV ONE (12:45)
[2020-05-19] MEDS ORDERED: SODIUM CHLORIDE 0.9% 1,000 ML IV SCH (12:48)
[2020-05-19] MEDS ORDERED: SODIUM CHLORIDE 0.9% 1,000 ML IV ONE (13:00)
[2020-05-19] MEDS ORDERED: DEXTROSE (50%) 50ML SYRG IV PRN (13:00)
[2020-05-19] MEDS ORDERED: ACETAMINOPHEN 500 MG TAB PO PRN (13:00)
[2020-05-19] MEDS ORDERED: hydrALAZINE HCL 20 MG/ML VL IV PRN (13:00)
[2020-05-19] MEDS ORDERED: NITROGLYCERIN 0.4 MG SL TAB SL PRN (13:00)
[2020-05-19] MEDS ORDERED: MORPHINE SULF INJ 2 MG/ML SYRINGE 1ML IV PRN ×2 (13:00)
[2020-05-19] MEDS ORDERED: DOCUSATE CALCIUM 240 MG CAP PO ONE (13:30)
[2020-05-19] MEDS ORDERED: ASCORBIC ACID 1,000 MG TAB PO ONE (13:30)
[2020-05-19] MEDS ORDERED: ISOSORBIDE MONONITRATE ER 60 MG TAB PO ONE (13:30)
[2020-05-19] MEDS ORDERED: CLOPIDOGREL BISULFATE 75 MG TAB PO ONE (13:30)
[2020-05-19] MEDS ORDERED: levoFLOXacin 500MG 100 ML IV ONE (13:30)
[2020-05-19] MEDS ORDERED: ZINC SULFATE 220mg CAP or TAB PO ONE (13:30)
[2020-05-19] MEDS ORDERED: PANTOPRAZOLE 40 MG/10 ML VIAL INJ IV ONE (13:30)
[2020-05-19] MEDS ORDERED: PIPERACILLIN-TAZOB 2.25GM 50 ML IV ONE (13:30)
[2020-05-19] MEDS ORDERED: ENOXAPARIN SOD 40 MG/0.4 ML SYRINGE SC ONE (13:30)
[2020-05-19] MEDS ORDERED: TORSEMIDE 20 MG TAB PO ONE (13:30)
[2020-05-19] MEDS ORDERED: CHOLECALCIFEROL (VITD3) 2,000 UNIT CAP PO ONE (13:30)
[2020-05-19] MEDS ORDERED: POTASSIUM CHL 20 Meq TABLET PO ONE (13:30)
[2020-05-19] MEDS ORDERED: DIGOXIN 0.125 MG TAB PO ONE (13:30)
[2020-05-19] MEDS ORDERED: AMIODARONE HCL 200 MG TAB PO ONE (13:30)
[2020-05-19 13:43] VITALS: BP 127/57
[2020-05-19] MEDS ORDERED: METOPROLOL SUCCINATE XL 50 MG TAB PO ONE (13:45)
[2020-05-19] MEDS: ALBUTEROL SULF HFA 90MCG INH 200DOSE IN SCH ×2 (14:00→22:50)
[2020-05-19 15:06] VITALS: BP 127/71
[2020-05-19 16:00] VITALS: BP 111/71
[2020-05-19] MEDS: ACCU-CHEK COMFORT CURVE STRIP VI SCH ×2 (16:00→21:28)
[2020-05-19] MEDS: InsuLIN REG 1unit/0.01ml Soln (100units/ml) SC SCH ×2 (16:00→20:00)
--- NOTE | 2020-05-19 17:30 | NUR ---
PORT-A-CATH NEEDLE PLACED TO CHEST PROTRUDING OUT AND CAUSING PAIN AND DISCOMFORT TO PATIENT. PATIENT STATES HE USES A SMALLER NEEDLE AT THE HEART THE DALLES. RN OLIVERIO AND THIS RN AT BEDSIDE TO CHANGE PORT-A-CATH USING STERILE TECHNIQUE. NEW 0.75IN NEEDLE IN PLACE WITH GOOD BLOOD RETURN. BIOPATCH PLACED AT INSERTION SITE AND NEEDLE SECURED WITH TEGADERM. PATIENT TOLERATED WELL. WILL CONTINUE TO MONITOR.
[2020-05-19] MEDS: MILRINONE 20MG/100ML 100 ML IV SCH (17:43)
--- NOTE | 2020-05-19 17:57 | NUR ---
SPOKE TO Juan JACOBSEN REGARDING MILRINONE DRIP. CLARIFIED DOSAGE. INSTRUCTED TO NOT TITRATE MEDICATION AND LEAVE AT BASE RATE. INFORMED OF ORDER OF TORSEMIDE FROM ER Juan INSTRUCTED OK TO GIVE. PATIENT PLACED ON MILRINONE DRIP PER EMAR AND PLACED ON BLOOD PRESSURE CUFF FOR Q1HR VITALS.
[2020-05-19] MEDS: TORSEMIDE 20 MG TAB PO SCH (18:29)
[2020-05-19] MEDS: PIPERACILLIN-TAZOB 3.375GM 100 ML IV SCH (18:29)
--- NOTE | 2020-05-19 19:20 | NUR ---
OPENING SHIFT NOTE Assumed care of patient who is A&O x4. Currently on 3L NC with no s/s of distress. Reports 3/10 pain in lower back. Patient was medicated for pain by previous shift. Port a cath present in right upper chest. Currently infusing Milrinone as well as Zosyn according to orders. Q1 hour blood pressure measurements in place. POC discussed and patient verbalizes understanding. Bed is in low locked position with side rails up x2. Call light is within reach and patient encouraged to call for assistance when needed. Will continue to monitor for changes PRN.
--- NOTE | 2020-05-19 19:52 | NUR ---
BLOOD CULTURES Corn Crop Supervisor at bedside, attempting to draw blood cultures. Patient requesting that blood be drawn from Port a cath. This RN educated patient that blood cultures cannot be drawn from his Central line. Patient verbalizes understanding and refused blood draw at this time. Stating, "I really don't like being poked. He can come back later, after the Morphine has kicked in". Lab to return for second attempt at 0400 rounds.
[2020-05-19 20:00] VITALS: BP 122/60
[2020-05-19] MEDS: POTASSIUM CHL 20 Meq TABLET PO SCH (21:30)
[2020-05-19] MEDS: ACETAMINOPHEN 500 MG TAB PO PRN (21:31)
[2020-05-19 22:00] VITALS: BP 122/60
[2020-05-19] MEDS ORDERED: WARFARIN SODIUM 2 MG TAB PO SCH (22:00)
[2020-05-19] MEDS: BUDESONIDE (INHALATION) 180 MCG IH IN SCH (22:50)
--- NOTE | 2020-05-19 22:50 | NUR ---
2200 MDI HELD AT THIS TIME, PT SLEEPING, NO RESPIRATORY DISTRESS NOTED. COVID RESULTS PENDING, WILL CONTINUE TO MONITOR.
[2020-05-20] VITALS (11 sets, daily range): BP systolic 112–141; BP diastolic 59–81
[2020-05-20] MEDS: MILRINONE 20MG/100ML 100 ML IV SCH ×5 (00:13→23:45)
[2020-05-20] MEDS: PIPERACILLIN-TAZOB 3.375GM 100 ML IV SCH ×5 (00:13→23:48)
[2020-05-20] MEDS: ACCU-CHEK COMFORT CURVE STRIP VI SCH ×3 (00:31→08:00)
[2020-05-20] MEDS: InsuLIN REG 1unit/0.01ml Soln (100units/ml) SC SCH ×3 (04:00→08:00)
[2020-05-20] MEDS: TORSEMIDE 20 MG TAB PO SCH ×2 (05:55→19:10)
[2020-05-20] MEDS: ALBUTEROL SULF HFA 90MCG INH 200DOSE IN SCH ×2 (06:00→14:00)
[2020-05-20 06:09] LABS: INR 1.55 (0.9-1.15)
[2020-05-20 06:16] LABS: BUN/Creatinine Ratio 14.2; Calcium 8.3 mg/dL (8.5-10.1); Magnesium 2.2 mg/dL (1.6-2.6); Potassium 3.7 mmol/L (3.5-5.1)
[2020-05-20 06:19] LABS: Bilirubin, Total 0.5 mg/dL (0.2-1.0); Total Protein 7.4 g/dL (6.4-8.2)
--- NOTE | 2020-05-20 06:30 | NUR ---
Respiratory note: NO ADMINISTRATION OF 0600 MDI/DPI PATIENT REMAINS A COVID R/O, AND IT IS NOT INDICATED. PATIENT IN NO ACUTE RESPIRATORY DISTRESS AT THIS TIME.
[2020-05-20] MEDS: BUDESONIDE (INHALATION) 180 MCG IH IN SCH (06:34)
[2020-05-20] MEDS: ISOSORBIDE MONONITRATE ER 60 MG TAB PO SCH (06:43)
[2020-05-20 07:14] LABS: Basophils # (auto) 0 10 ^3/uL (0-0.2); Eosinophils # (auto) 0.1 10 ^3/uL (0-0.8); Hemoglobin 11.9 g/dL (13.5-17.5); Mean Corpuscular Hemoglobin 23.5 pg (28.0-32.0); Monocytes # (auto) 1.4 10 ^3/uL (0-1.3); Neutrophils # (auto) 5.5 10 ^3/uL (1.6-8.6)
[2020-05-20 07:15] LABS: Basophils % (auto) 0.3 % (0.0-2.0); Hematocrit 37.1 % (41.0-53.0); Lymphocytes # (auto) 0.9 10 ^3/uL (0.4-5.4); Mean Corpuscular Volume 73.6 fL (80.0-100.0); Monocytes % (auto) 17.3 % (0.0-12.0); Neutrophils % (auto) 69.4 % (37.0-80.0); Platelet Count (auto) 224 10^3/uL (140-450); Red Blood Cells 5.04 10^6/uL (4.5-5.90); White Blood Cell 7.9 10^3/uL (4.4-10.8)
[2020-05-20 07:37] LABS: Red Cell Distribution Width 20.8 % (11.8-14.3)
[2020-05-20] MEDS ORDERED: levoFLOXacin 500MG 100 ML IV SCH (10:00)
[2020-05-20] MEDS: PANTOPRAZOLE 40 MG/10 ML VIAL INJ IV SCH (10:40)
[2020-05-20] MEDS: ENOXAPARIN SOD 40 MG/0.4 ML SYRINGE SC SCH (10:40)
[2020-05-20] MEDS: ASCORBIC ACID 1,000 MG TAB PO SCH (10:41)
[2020-05-20] MEDS: levoFLOXacin 500MG 100 ML IV SCH (10:41)
[2020-05-20] MEDS: POTASSIUM CHL 20 Meq TABLET PO SCH ×2 (10:42→21:46)
[2020-05-20] MEDS: CHOLECALCIFEROL (VITD3) 2,000 UNIT CAP PO SCH (10:42)
[2020-05-20] MEDS: CLOPIDOGREL BISULFATE 75 MG TAB PO SCH (10:43)
[2020-05-20] MEDS: ZINC SULFATE 220mg CAP or TAB PO SCH (10:43)
[2020-05-20] MEDS: DOCUSATE CALCIUM 240 MG CAP PO SCH ×2 (10:45→12:01)
[2020-05-20] MEDS: METOPROLOL SUCCINATE XL 50 MG TAB PO SCH (10:45)
[2020-05-20] MEDS: AMIODARONE HCL 200 MG TAB PO SCH (10:47)
[2020-05-20] MEDS: DIGOXIN 0.125 MG TAB PO SCH (10:47)
[2020-05-20] MEDS ORDERED: ONDANSETRON HCL 4 MG/2 ML VIAL IV PRN (13:15)
--- NOTE | 2020-05-20 14:20 | NUR ---
Respiratory note: NO ADMINISTRATION OF 1400 MDI/DPI PATIENT REMAINS A COVID R/O, AND IT IS NOT INDICATED. PATIENT IN NO ACUTE RESPIRATORY DISTRESS AT THIS TIME. SPO2 96% 3LPM N/C
[2020-05-20] MEDS ORDERED: WARFARIN SODIUM 1 MG TAB PO ONE (17:00)
--- NOTE | 2020-05-20 17:30 | NUR ---
PATIENT COVID RESULTS ARE NEGATIVE. PATIENT TRANSFER WITH ALL PERSONAL BELONGINGS TO ROOM 295A. REPORT GIVEN TO GABY HARDY. NO S/S NOTED AT TIME OF TRANSFER.
--- NOTE | 2020-05-20 17:55 | NUR ---
PT RECEIVED VIA WHEELCHAIR. AWAKE, AOX4. DENIES PAIN AT THIS TIME. NO DISTRESS NOTED. PT AMBULATED TO THE BATHROOM WITH STEADY GAIT, NON-SKID SOCKS ON.
--- NOTE | 2020-05-20 19:20 | NUR ---
Opening Shift Note Received report from Nora HARDY. Assumed care of patient, awake and alert. No S/S of distress/SOB or pain. Instructed on POC and to call for assist PRN. Fall precaution measures in place, will continue to monitor for changes Q1hr and PRN.
[2020-05-20] MEDS: ACETAMINOPHEN 500 MG TAB PO PRN (21:47)
[2020-05-20] MEDS: CHOLESTYRAMINE 4 GM POWDER PO SCH (23:16)
[2020-05-21 05:05] VITALS: BP 116/64
[2020-05-21] MEDS: PIPERACILLIN-TAZOB 3.375GM 100 ML IV SCH ×3 (06:20→17:23)
[2020-05-21] MEDS: ISOSORBIDE MONONITRATE ER 60 MG TAB PO SCH (06:21)
[2020-05-21] MEDS: TORSEMIDE 20 MG TAB PO SCH ×2 (06:21→17:26)
[2020-05-21 07:02] LABS: Basophils # (auto) 0 10 ^3/uL (0-0.2); Basophils % (auto) 0.2 % (0.0-2.0); Eosinophils # (auto) 0.1 10 ^3/uL (0-0.8); Eosinophils % (auto) 1.7 % (0.0-7.0); Hematocrit 36.2 % (41.0-53.0); Hemoglobin 11.2 g/dL (13.5-17.5); Lymphocytes # (auto) 0.8 10 ^3/uL (0.4-5.4); Lymphocytes % (auto) 11.1 % (10.0-50.0); Mean Corpuscular Hemoglobin 22.9 pg (28.0-32.0); Mean Corpuscular Volume 73.8 fL (80.0-100.0); Monocytes % (auto) 14.4 % (0.0-12.0); Neutrophils # (auto) 5.1 10 ^3/uL (1.6-8.6); Neutrophils % (auto) 72.6 % (37.0-80.0); Nucleated Red Blood Cells % 0.1 %; Platelet Count (auto) 219 10^3/uL (140-450); Red Blood Cells 4.91 10^6/uL (4.5-5.90); White Blood Cell 7.1 10^3/uL (4.4-10.8)
[2020-05-21 07:06] LABS: Red Cell Distribution Width 20.3 % (11.8-14.3)
[2020-05-21 07:09] LABS: INR 1.55 (0.9-1.15)
--- NOTE | 2020-05-21 07:40 | NUR ---
Opening shift note Assumed care of patient from NOC RN. Patient is AOX4 no s/s of SOB or distress noted. Bed is in lowest locked position, side rials up x2, and call light is within reach. Updated patient on plan of care and patient verbalized understanding. Will continue to monitor q1hr and PRN.
[2020-05-21 09:00] VITALS: BP 117/79
[2020-05-21] MEDS: MILRINONE 20MG/100ML 100 ML IV SCH ×3 (09:16→23:18)
[2020-05-21] MEDS: ZINC SULFATE 220mg CAP or TAB PO SCH ×2 (09:19→13:24)
[2020-05-21] MEDS: PANTOPRAZOLE 40 MG/10 ML VIAL INJ IV SCH (09:19)
[2020-05-21] MEDS: POTASSIUM CHL 20 Meq TABLET PO SCH ×2 (09:20→21:48)
[2020-05-21] MEDS: CLOPIDOGREL BISULFATE 75 MG TAB PO SCH (09:21)
[2020-05-21] MEDS: DIGOXIN 0.125 MG TAB PO SCH (09:21)
[2020-05-21] MEDS: ASCORBIC ACID 1,000 MG TAB PO SCH ×2 (09:22→13:24)
[2020-05-21] MEDS: ENOXAPARIN SOD 40 MG/0.4 ML SYRINGE SC SCH (09:22)
[2020-05-21] MEDS: CHOLECALCIFEROL (VITD3) 2,000 UNIT CAP PO SCH ×2 (09:22→13:24)
[2020-05-21] MEDS: METOPROLOL SUCCINATE XL 50 MG TAB PO SCH (09:23)
[2020-05-21] MEDS: DOCUSATE CALCIUM 240 MG CAP PO SCH (09:23)
[2020-05-21] MEDS: AMIODARONE HCL 200 MG TAB PO SCH (09:24)
--- NOTE | 2020-05-21 12:00 | NUR ---
Home O2 Patient stated that he uses at home oxygen. Per patient he does not have O2 at home for use, and is requesting oxygen be delivered. Addendum: 05/21/20 at 1240 by SVEN SOLANO RN Per patient company providing home o2 is [employer]".
[2020-05-21] MEDS: levoFLOXacin 500MG 100 ML IV SCH (12:03)
[2020-05-21] MEDS: CHOLESTYRAMINE 4 GM POWDER PO SCH (12:04)
[2020-05-21 13:00] VITALS: BP 125/68
--- NOTE | 2020-05-21 13:55 | NUR ---
Called Left message to Dr. Leiva regarding ordered Coumadin, awaiting call back.
--- NOTE | 2020-05-21 14:06 | NUR ---
Received call back Received call back from Dr. Leiva. New orders received, will follow through, will continue care.
[2020-05-21] MEDS ORDERED: HYDROcodone-ACET 10/325MG TAB PO PRN (14:45)
[2020-05-21 16:38] VITALS: BP 111/62
[2020-05-21] MEDS ORDERED: WARFARIN SODIUM 1 MG TAB PO ONE (17:00)
--- NOTE | 2020-05-21 19:09 | NUR ---
END OF SHIFT NOTE Endorsed care to NOC HAYLEY Nathan. No s/s of SOB or distress noted.
--- NOTE | 2020-05-21 19:15 | NUR ---
Opening Shift Note Received report from Gilbert HARDY. Assumed care of patient, awake and alert. No S/S of distress/SOB or pain. Instructed on POC and to call for assist PRN, will continue to monitor for changes Q1hr and PRN.
[2020-05-21 21:42] VITALS: BP 120/68
[2020-05-21] MEDS: LORazepam 0.5 MG TAB PO PRN (23:18)
[2020-05-22] MEDS: PIPERACILLIN-TAZOB 3.375GM 100 ML IV SCH ×4 (00:06→17:31)
[2020-05-22] MEDS: CHOLESTYRAMINE 4 GM POWDER PO SCH ×3 (00:07→23:10)
[2020-05-22] MEDS: MILRINONE 20MG/100ML 100 ML IV SCH ×3 (02:18→17:00)
[2020-05-22 04:57] VITALS: BP 120/66
[2020-05-22] MEDS: ISOSORBIDE MONONITRATE ER 60 MG TAB PO SCH (06:09)
[2020-05-22] MEDS: TORSEMIDE 20 MG TAB PO SCH ×2 (06:09→17:44)
[2020-05-22 06:54] LABS: Basophils # (auto) 0 10 ^3/uL (0-0.2); Eosinophils # (auto) 0.1 10 ^3/uL (0-0.8); Eosinophils % (auto) 1.5 % (0.0-7.0); Lymphocytes # (auto) 0.8 10 ^3/uL (0.4-5.4); Lymphocytes % (auto) 12.1 % (10.0-50.0); Mean Corpuscular Hemoglobin 22.9 pg (28.0-32.0); Monocytes # (auto) 0.8 10 ^3/uL (0-1.3); Neutrophils # (auto) 4.9 10 ^3/uL (1.6-8.6); Nucleated Red Blood Cells % 0.1 %; Red Blood Cells 4.82 10^6/uL (4.5-5.90)
[2020-05-22 06:55] LABS: Basophils % (auto) 0.4 % (0.0-2.0); Hematocrit 35.7 % (41.0-53.0); Mean Corpuscular Hgb Conc. 30.9 g/dL (32.0-36.0); Monocytes % (auto) 12.1 % (0.0-12.0); Neutrophils % (auto) 73.9 % (37.0-80.0); Platelet Count (auto) 224 10^3/uL (140-450); White Blood Cell 6.7 10^3/uL (4.4-10.8)
[2020-05-22 07:04] LABS: Red Cell Distribution Width 20.8 % (11.8-14.3)
[2020-05-22 07:05] LABS: Potassium 3.5 mmol/L (3.5-5.1)
[2020-05-22 07:07] LABS: INR 1.47 (0.9-1.15)
[2020-05-22 07:08] LABS: Albumin 2.7 g/dL (3.4-5.0); BUN/Creatinine Ratio 8.7; Bilirubin, Total 0.2 mg/dL (0.2-1.0); Calcium 8.4 mg/dL (8.5-10.1); Total Protein 7.1 g/dL (6.4-8.2)
[2020-05-22 09:00] VITALS: BP 122/70
[2020-05-22] MEDS: ASCORBIC ACID 1,000 MG TAB PO SCH (09:39)
[2020-05-22] MEDS: CHOLECALCIFEROL (VITD3) 2,000 UNIT CAP PO SCH (09:39)
[2020-05-22] MEDS: METOPROLOL SUCCINATE XL 50 MG TAB PO SCH (09:39)
[2020-05-22] MEDS: ZINC SULFATE 220mg CAP or TAB PO SCH (09:39)
[2020-05-22] MEDS: AMIODARONE HCL 200 MG TAB PO SCH (09:41)
[2020-05-22] MEDS: CLOPIDOGREL BISULFATE 75 MG TAB PO SCH (09:49)
[2020-05-22] MEDS: DIGOXIN 0.125 MG TAB PO SCH (09:50)
[2020-05-22] MEDS: POTASSIUM CHL 20 Meq TABLET PO SCH ×2 (09:50→23:00)
[2020-05-22] MEDS: PANTOPRAZOLE 40 MG/10 ML VIAL INJ IV SCH (09:50)
[2020-05-22] MEDS: levoFLOXacin 500MG 100 ML IV SCH (09:50)
[2020-05-22] MEDS: DOCUSATE CALCIUM 240 MG CAP PO SCH (09:51)
--- NOTE | 2020-05-22 10:01 | NUR ---
Spoke to pharmacist stated Milrinone can run with Zosyn or Levaquin.
--- NOTE | 2020-05-22 11:22 | NUR ---
[facility]ed [facility] order.
--- NOTE | 2020-05-22 11:48 | NUR ---
O2 sat, sitting with oxygen 3 L 95-97%, walking with oxygen 3 L 90-95%, walking without oxygen 70-80 %.
[2020-05-22 13:04] VITALS: BP 124/64
[2020-05-22 13:11] VITALS: BP 124/64
--- NOTE | 2020-05-22 14:27 | NUR ---
Assessment Patient is a 54-year-old male who is alert and oriented. Prior to admission patient lived home with roommates and functioned independently. Patient informed me he has home oxygen for home use. Patient states he can care for his own ADLs. Per patient he will return to his prior living arrangements post discharge and will need a Taxi voucher. Advised patient there is a social service consult for home oxygen at 3 l/min. Informed patient clinical information will be faxed to [facility]. Informed patient he has a right to participate in all discharge planning. Patient verbalized understanding and agreed to discharge plan. Faxed clinical information to [facility] Informed HAYLEY Sarmiento. Addendum: 05/22/20 at 1427 by YESSICA WADDELL Amended: Links added.
--- NOTE | 2020-05-22 15:33 | NUR ---
D/C Planning Per Caitlyn with [facility] portable oxygen will be deliver to front lobby by 16:30. Informed HAYLEY Sarmiento.
[2020-05-22 17:00] VITALS: BP 150/74
[2020-05-22] MEDS ORDERED: WARFARIN SODIUM 2 MG TAB PO ONE (17:00)
--- NOTE | 2020-05-22 18:25 | NUR ---
Taxi called stated will come in 45 mins.
--- NOTE | 2020-05-22 19:15 | NUR ---
Opening Shift Note Assumed care of patient, awake and alert. Patient awaiting discharge. No S/S of distress/SOB or pain. Instructed on POC and to call for assist PRN, will continue to monitor for changes Q1hr and PRN.
--- NOTE | 2020-05-22 19:50 | NUR ---
Awaiting Discharge Empty oxygen tank delivered by [facility]. Called [facility], , they will deliver another oxygen tank before 2200. Patient informed and verbalized understanding. Will continue to monitor patient Q1 and PRN.
--- NOTE | 2020-05-22 20:15 | NUR ---
Called [facility] Per patient, he does not have any home oxygen tanks or an oxygen concentrator at home for use after discharge. Spoke with Ruslan from [facility], states that they are not able to deliver the home oxygen concentrator because they have documentation that patient already has received one. At this time patient spoke with Ruslan and was informed of this issue. Patient continues to deny he has received an oxygen concentrator for home use. Per Ruslan, patient needs to file a police report or pay a fine in order to receive an oxygen concentrator for home use. Patient verbalized understanding. Informed charge nurse. Will call MD Leiva to inform that patient is unable to be discharged at this time due to patient not having any oxygen for home use.
--- NOTE | 2020-05-22 21:18 | NUR ---
Call back from MD Leiva Per MD Leiva, cancel order for discharge. Orders read back, verified, and executed. Will continue to monitor patient Q1 and PRN.
[2020-05-22 22:00] VITALS: BP 136/86
[2020-05-22] MEDS: LORazepam 0.5 MG TAB PO PRN (23:11)
--- NOTE | 2020-05-22 23:31 | NUR ---
Called MD Leiva, awaiting call back. Will continue to monitor patient Q1 and PRN.
[2020-05-23] MEDS: PIPERACILLIN-TAZOB 3.375GM 100 ML IV SCH
[2020-05-23] MEDS: MILRINONE 20MG/100ML 100 ML IV SCH (00:21)
--- NOTE | 2020-05-23 01:17 | NUR ---
Call back from MD Leiva Per MD Leiva, discontinue medications Milrinone and Zosyn. Orders read back, verified, and executed. Will continue to monitor patient Q1 and PRN.
[2020-05-23 05:00] VITALS: BP 118/60
[2020-05-23 05:34] LABS: Basophils # (auto) 0 10 ^3/uL (0-0.2); Basophils % (auto) 0.4 % (0.0-2.0); Eosinophils # (auto) 0.1 10 ^3/uL (0-0.8); Hemoglobin 12.2 g/dL (13.5-17.5); Monocytes # (auto) 0.7 10 ^3/uL (0-1.3); Neutrophils # (auto) 4.7 10 ^3/uL (1.6-8.6); Nucleated Red Blood Cells % 0.1 %
[2020-05-23 05:36] LABS: Eosinophils % (auto) 1.7 % (0.0-7.0); Hematocrit 37.8 % (41.0-53.0); Lymphocytes % (auto) 15.5 % (10.0-50.0); Mean Corpuscular Hemoglobin 23.8 pg (28.0-32.0); Mean Corpuscular Hgb Conc. 32.3 g/dL (32.0-36.0); Mean Corpuscular Volume 73.7 fL (80.0-100.0); Neutrophils % (auto) 72.4 % (37.0-80.0); Platelet Count (auto) 244 10^3/uL (140-450); Red Blood Cells 5.13 10^6/uL (4.5-5.90); White Blood Cell 6.5 10^3/uL (4.4-10.8)
[2020-05-23 05:48] LABS: INR 1.43 (0.9-1.15)
[2020-05-23 05:51] LABS: Red Cell Distribution Width 20.7 % (11.8-14.3)
[2020-05-23 06:04] LABS: Albumin 2.9 g/dL (3.4-5.0); Calcium 8.9 mg/dL (8.5-10.1); Potassium 3.6 mmol/L (3.5-5.1)
[2020-05-23 06:08] LABS: BUN/Creatinine Ratio 10.1; Bilirubin, Total 0.3 mg/dL (0.2-1.0); Total Protein 7.6 g/dL (6.4-8.2)
[2020-05-23] MEDS: TORSEMIDE 20 MG TAB PO SCH (06:42)
[2020-05-23] MEDS: ISOSORBIDE MONONITRATE ER 60 MG TAB PO SCH (06:45)
--- NOTE | 2020-05-23 07:15 | NUR ---
End of Shift Note Endorsed care to dayshift RN. At this time patient has no s/s of distress or SOB.
[2020-05-23] MEDS: PANTOPRAZOLE 40 MG/10 ML VIAL INJ IV SCH (09:21)
[2020-05-23] MEDS: levoFLOXacin 500MG 100 ML IV SCH (09:21)
[2020-05-23] MEDS: CHOLECALCIFEROL (VITD3) 2,000 UNIT CAP PO SCH (09:22)
[2020-05-23] MEDS: ZINC SULFATE 220mg CAP or TAB PO SCH (09:22)
[2020-05-23] MEDS: ASCORBIC ACID 1,000 MG TAB PO SCH (09:22)
[2020-05-23] MEDS: METOPROLOL SUCCINATE XL 50 MG TAB PO SCH (09:50)
[2020-05-23] MEDS: CLOPIDOGREL BISULFATE 75 MG TAB PO SCH (09:50)
[2020-05-23] MEDS: DIGOXIN 0.125 MG TAB PO SCH (09:50)
[2020-05-23] MEDS: POTASSIUM CHL 20 Meq TABLET PO SCH (09:50)
[2020-05-23] MEDS: AMIODARONE HCL 200 MG TAB PO SCH (09:50)
[2020-05-23] MEDS: DOCUSATE CALCIUM 240 MG CAP PO SCH (09:50)
--- NOTE | 2020-05-23 10:18 | NUR ---
Received a call from [facility] stated [facility] has been delivered oxygen and concentrator multiple time. However , patient stated never received one. Per [facility] , patient can be DC anytime now and [facility] will follow with patient.
--- NOTE | 2020-05-23 10:30 | NUR ---
Informed patient that he can DC home anytime and F/U with [facility]. Patient was asking what time [facility] will be deliver concentrate and he wants to speak with SS in person, per Angella SS, stated she cannot see patient due to covid and patient have to call [facility] when patient gets home.
--- NOTE | 2020-05-23 11:00 | NUR ---
D/C Planning Received a call from HAYLEY Sarmiento regarding patient home oxygen and concentrate. Informed HAYLEY Sarmiento per Sharmila with [facility] patient has been given a concentrate for home and he should have one now. I will contact [facility] in regards of the concentrate oxygen. Placed call to [facility], spoke to [employer] Service Technician Sharmila. Per Sharmila they have been servicing the patient for the past 5 months and since then he has been given 5 different concentrate oxygen. Per Sharmila patient changes his story every time he calls for a new concentrate. Per Sharmila they deliver a portable oxygen to the front lobby as requested and patient needs to contact them when he is discharge. Informed HAYLEY Sarmiento.
--- NOTE | 2020-05-23 11:00 | NUR ---
[employer] manufacturer representative at bedside discussed with patient in order to get concentrator.
--- NOTE | 2020-05-23 11:30 | NUR ---
Dr. Leiva at bedside, aware of oxygen issues and per MD patient can go home now.
[2020-05-23] MEDS: CHOLESTYRAMINE 4 GM POWDER PO SCH (11:42)
--- NOTE | 2020-05-23 12:25 | NUR ---
Discharge instructions given as ordered. Encourage to follow up with PMD (Follow up with Dr. Leiva in May, at 10.40 AM # [phone] Address : [address], [place], [address]) as instructed. All questions and concerns addressed. Patient verbalized understanding. Medication reconciliation form completed and copy given to patient. IV removed with catheter intact, pressure dressing applied. Telemetry unit returned to ICU. Patient taken to vehicle via wheelchair with all personal belongings, accompanied by staff and family member. No distress noted at time of departure.
[2020-05-23] MEDS ORDERED: WARFARIN SODIUM 5 MG TAB PO ONE (17:00)
== END 2020-05-23 12:25 | disposition home or self-care (01) | DRG 193 ==
LOC: ER 18:19 → TELE 18:20 → TELE-EAST 05-19 15:00 → TELE-WESTW 05-20 17:29
PROVIDERS: ATTEND Internal Medicine Cardiovascular Disease
DX: J18.9 Pneumonia, unspecified organism (principal); I50.21 Acute systolic (congestive) heart failure; J44.1 Chronic obstructive pulmonary disease with (acute) exacerbation; E87.1 Hypo-osmolality and hyponatremia; N17.9 Acute kidney failure, unspecified; I11.0 Hypertensive heart disease with heart failure; Z20.828 Contact with and (suspected) exposure to other viral communicable diseases; B34.9 Viral infection, unspecified; D72.829 Elevated white blood cell count, unspecified; R06.03 Acute respiratory distress; E86.0 Dehydration; I48.91 Unspecified atrial fibrillation; D64.9 Anemia, unspecified; F41.9 Anxiety disorder, unspecified; E78.5 Hyperlipidemia, unspecified; Z79.02 Long term (current) use of antithrombotics/antiplatelets; Z79.899 Other long term (current) drug therapy; Z82.1 Family history of blindness and visual loss; Z82.3 Family history of stroke; Z82.49 Family history of ischemic heart disease and other diseases of the circulatory system; Z83.3 Family history of diabetes mellitus
CPT/HCPCS: 36415; 36600; 71045; 80048; 80053; 81001; 82728; 82805; 82962; 83615; 83735; 83880; 84443; 84484; 85025; 85379; 85610; 85730; 86141; 87040; 87426; 93005; 94762; 96365; 96366; 96372; C9113; G0378; G0463; J0696; J1642; J1956; J2405; J2543

== ENCOUNTER → 2020-05-18 | Outpatient (CLI) | payer MEDICARE, MEDICAID ==
[2020-05-18] VITALS (11 sets, daily range): BP systolic 90–145; BP diastolic 52–82
[~2020-05-18] VITALS: Ht 30.5 cm; Wt 121.3 kg
[~2020-05-18] MED LIST changes: -CYANOCOBALAMIN (B-12) 1000 MCG/1 ML VIAL IM ONE; -CYANOCOBALAMIN (B-12) 1000 MCG/1 ML VIAL ONE
--- NOTE | 2020-05-18 08:15 | NUR ---
CLINIC PT ARRIVED TO THE CHF CLINIC FOR WEEKLY CHF EVAL AND TX. A/OX4, AMBULATORY. PT HAS A 2.8LB WT LOSS SINCE LAST VISIT ON 05/16/20. 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
--- NOTE | 2020-05-18 08:29 | NUR ---
MILRINONE IV STARTED @ 0.375 MCG/KG/MIN PER MD ORDERS. VSS. WILL CONTINUE TO MONITOR.
--- NOTE | 2020-05-18 10:34 | NUR ---
PT TOLERATING DOBUTAMINE INFUSION. IV SITE BENIGN. VSS. WILL CONTINUE TO MONITOR. Addendum: 05/18/20 at 1228 by MADDI PÉREZ RN RN [place] WRONG PT
--- NOTE | 2020-05-18 10:40 | NUR ---
PT TOLERATING MILRINONE INFUSION. PORT SITE BENIGN. VSS. WILL CONTINUE TO MONITOR
--- NOTE | 2020-05-18 12:19 | NUR ---
IV removal IV DC'd with sterile technique, catheter fully intact. Pressure dressing applied to site. Patient tolerated procedure well. Discharged with aftercare instructions per MD. NOTE: REMOVED BY MADDI HARDY Addendum: 05/18/20 at 1228 by MADDI PÉREZ RN RN [place] WRONG PT
--- NOTE | 2020-05-18 12:21 | NUR ---
Discharge Instructions See e-MAR for any mediations given with this visit. Patient education given on disease process. Patient verbalized understanding. Previous labs reviewed. Patient discharged in stable condition with after care instructions and follow up appointment ON FRIDAY. NOTE DOBUTAMINE IV [id number] ADMIN BY MADDI HARDY Addendum: 05/18/20 at 1227 by MADDI PÉREZ RN RN [place] wrong pt
--- NOTE | 2020-05-18 12:38 | NUR ---
Discharge Instructions See e-MAR for any mediations given with this visit. Patient education given on disease process. Patient verbalized understanding. Previous labs reviewed. Patient discharged in stable condition with after care instructions and follow up appointment ON FRI. NOTE MILRINONE IV [id number] ADMIN BY MADDI HARDY HEPARIN IVP ADMIN BY CARLY HARDY INR DONE BY CAMI GÓMEZ 1.9
== END | disposition home or self-care (01) ==
LOC: CHF HDHVI 08:28
PROVIDERS: ATTEND Internal Medicine Cardiovascular Disease
DX: I13.0 Hypertensive heart and chronic kidney disease with heart failure and stage 1 through stage 4 chronic kidney disease, or unspecified chronic kidney disease (principal); I50.42 Chronic combined systolic (congestive) and diastolic (congestive) heart failure; N18.3 Chronic kidney disease, stage 3 (moderate); R53.83 Other fatigue; I25.10 Atherosclerotic heart disease of native coronary artery without angina pectoris; I42.8 Other cardiomyopathies; I73.9 Peripheral vascular disease, unspecified; I48.91 Unspecified atrial fibrillation; G89.4 Chronic pain syndrome; E66.9 Obesity, unspecified; Z68.34 Body mass index [BMI] 34.0-34.9, adult; Z95.810 Presence of automatic (implantable) cardiac defibrillator; Z86.73 Personal history of transient ischemic attack (TIA), and cerebral infarction without residual deficits; Z79.01 Long term (current) use of anticoagulants; Z79.899 Other long term (current) drug therapy
CPT/HCPCS: 85610; 96365; 96366; G0463; J1642; J2260

== ENCOUNTER → 2020-05-25 | Outpatient (CLI) | payer MEDICARE, MEDICAID ==
[2020-05-25] VITALS (12 sets, daily range): BP systolic 93–128; BP diastolic 61–85
[~2020-05-25] MED LIST changes: +MILRINONE 20MG/100ML 100 ML IV ONE
[2020-05-25 12:09] LABS: Potassium 3.5 mmol/L (3.5-5.1)
== END | disposition home or self-care (01) ==
LOC: CHF HDHVI 08:45
PROVIDERS: ATTEND Internal Medicine Cardiovascular Disease
DX: I13.0 Hypertensive heart and chronic kidney disease with heart failure and stage 1 through stage 4 chronic kidney disease, or unspecified chronic kidney disease (principal); I50.23 Acute on chronic systolic (congestive) heart failure; N18.3 Chronic kidney disease, stage 3 (moderate); R94.4 Abnormal results of kidney function studies; I25.10 Atherosclerotic heart disease of native coronary artery without angina pectoris; I48.91 Unspecified atrial fibrillation; I42.8 Other cardiomyopathies; I73.9 Peripheral vascular disease, unspecified; F41.9 Anxiety disorder, unspecified; J44.9 Chronic obstructive pulmonary disease, unspecified; E78.5 Hyperlipidemia, unspecified; G89.4 Chronic pain syndrome; E66.9 Obesity, unspecified; Z68.34 Body mass index [BMI] 34.0-34.9, adult; Z95.810 Presence of automatic (implantable) cardiac defibrillator; Z86.73 Personal history of transient ischemic attack (TIA), and cerebral infarction without residual deficits; Z79.02 Long term (current) use of antithrombotics/antiplatelets; Z79.899 Other long term (current) drug therapy; Z79.01 Long term (current) use of anticoagulants
CPT/HCPCS: 36415; 82565; 83880; 84132; 84520; 96365; 96366; G0463; J1642; J2260

== ENCOUNTER → 2020-06-06 | Outpatient (CLI) | payer MEDICARE, MEDICAID ==
[2020-06-06] VITALS (11 sets, daily range): BP systolic 101–128; BP diastolic 64–88
[2020-06-06 11:59] LABS: Basophils # (auto) 0 10 ^3/uL (0-0.2); Eosinophils # (auto) 0.1 10 ^3/uL (0-0.8); Eosinophils % (auto) 1.7 % (0.0-7.0); Hemoglobin 12.9 g/dL (13.5-17.5); Lymphocytes # (auto) 1.2 10 ^3/uL (0.4-5.4); Monocytes # (auto) 0.7 10 ^3/uL (0-1.3)
[2020-06-06 12:02] LABS: Basophils % (auto) 0.6 % (0.0-2.0); Hematocrit 41.2 % (41.0-53.0); Lymphocytes % (auto) 18.7 % (10.0-50.0); Mean Corpuscular Hemoglobin 23.3 pg (28.0-32.0); Mean Corpuscular Hgb Conc. 31.4 g/dL (32.0-36.0); Mean Corpuscular Volume 74.2 fL (80.0-100.0); Monocytes % (auto) 11.6 % (0.0-12.0); Neutrophils # (auto) 4.2 10 ^3/uL (1.6-8.6); Neutrophils % (auto) 67.4 % (37.0-80.0); Platelet Count (auto) 259 10^3/uL (140-450); Red Blood Cells 5.55 10^6/uL (4.5-5.90); White Blood Cell 6.3 10^3/uL (4.4-10.8)
[2020-06-06 12:06] LABS: Red Cell Distribution Width 22.6 % (11.8-14.3)
[2020-06-06 12:13] LABS: BUN/Creatinine Ratio 13.8; Calcium 8.9 mg/dL (8.5-10.1); Potassium 3.7 mmol/L (3.5-5.1)
== END | disposition home or self-care (01) ==
LOC: CHF HDHVI 09:38
PROVIDERS: ATTEND Internal Medicine Cardiovascular Disease
DX: I13.0 Hypertensive heart and chronic kidney disease with heart failure and stage 1 through stage 4 chronic kidney disease, or unspecified chronic kidney disease (principal); I50.43 Acute on chronic combined systolic (congestive) and diastolic (congestive) heart failure; N18.3 Chronic kidney disease, stage 3 (moderate); F41.9 Anxiety disorder, unspecified; I25.10 Atherosclerotic heart disease of native coronary artery without angina pectoris; J44.9 Chronic obstructive pulmonary disease, unspecified; E78.5 Hyperlipidemia, unspecified; I42.8 Other cardiomyopathies; I73.9 Peripheral vascular disease, unspecified; I48.91 Unspecified atrial fibrillation; Z86.73 Personal history of transient ischemic attack (TIA), and cerebral infarction without residual deficits; Z95.810 Presence of automatic (implantable) cardiac defibrillator; Z79.01 Long term (current) use of anticoagulants; Z79.02 Long term (current) use of antithrombotics/antiplatelets; Z79.899 Other long term (current) drug therapy
CPT/HCPCS: 36415; 80048; 83880; 85025; 85610; 93005; 96365; 96366; G0463; J1642; J2260

== ENCOUNTER → 2020-06-08 | Outpatient (CLI) | payer MEDICARE, MEDICAID ==
[2020-06-08] VITALS (9 sets, daily range): BP systolic 100–111; BP diastolic 50–63
[~2020-06-08] MED LIST changes: +CATHFLO ACTIVASE (ALTEPLASE) 2 MG VIAL IV ONE
== END | disposition home or self-care (01) ==
LOC: CHF HDHVI 08:56
PROVIDERS: ATTEND Internal Medicine Cardiovascular Disease
DX: I13.0 Hypertensive heart and chronic kidney disease with heart failure and stage 1 through stage 4 chronic kidney disease, or unspecified chronic kidney disease (principal); I50.43 Acute on chronic combined systolic (congestive) and diastolic (congestive) heart failure; N18.3 Chronic kidney disease, stage 3 (moderate); I25.10 Atherosclerotic heart disease of native coronary artery without angina pectoris; I73.9 Peripheral vascular disease, unspecified; I48.91 Unspecified atrial fibrillation; I42.8 Other cardiomyopathies; F41.9 Anxiety disorder, unspecified; R53.83 Other fatigue; J44.9 Chronic obstructive pulmonary disease, unspecified; G89.4 Chronic pain syndrome; E78.5 Hyperlipidemia, unspecified; E66.9 Obesity, unspecified; Z68.34 Body mass index [BMI] 34.0-34.9, adult; Z95.810 Presence of automatic (implantable) cardiac defibrillator; Z86.73 Personal history of transient ischemic attack (TIA), and cerebral infarction without residual deficits; Z79.01 Long term (current) use of anticoagulants; Z79.02 Long term (current) use of antithrombotics/antiplatelets; Z79.899 Other long term (current) drug therapy
CPT/HCPCS: 96365; 96366; G0463; J1642; J2260; J2997; 96375

== ENCOUNTER → 2020-06-13 | Outpatient (CLI) | payer MEDICARE, MEDICAID ==
[2020-06-13] VITALS (11 sets, daily range): BP systolic 98–122; BP diastolic 58–81
[~2020-06-13] MED LIST changes: -CATHFLO ACTIVASE (ALTEPLASE) 2 MG VIAL IV ONE; +CYANOCOBALAMIN (B-12) 1000 MCG/1 ML VIAL IM ONE; +CYANOCOBALAMIN (B-12) 1000 MCG/1 ML VIAL ONE
--- NOTE | 2020-06-13 09:05 | NUR ---
CLINIC PT ARRIVED TO THE CHF CLINIC FOR WEEKLY CHF EVAL AND TX. A/OX4, AMBULATORY, BREATHING IS EVEN AND UNLABORED. PT HAS 2LB WT GAIN SINCE LAST VISIT ON 06/08/20
--- NOTE | 2020-06-13 09:40 | NUR ---
MILRINONE IV STARTED @ 0.375 MCG/KG/MIN PER MD ORDERS. VSS. WILL CONTINUE TO MONITOR.
--- NOTE | 2020-06-13 11:01 | NUR ---
PT TOLERATING MILRINONE IV. PORT SITE BENIGN. VSS. WILL CONTINUE TO MONITOR.
[2020-06-13 12:14] LABS: Basophils # (auto) 0 10 ^3/uL (0-0.2); Eosinophils # (auto) 0.1 10 ^3/uL (0-0.8); Lymphocytes # (auto) 1.1 10 ^3/uL (0.4-5.4); Monocytes # (auto) 0.5 10 ^3/uL (0-1.3); Nucleated Red Blood Cells % 0.2 %
[2020-06-13 12:16] LABS: Basophils % (auto) 0.6 % (0.0-2.0); Eosinophils % (auto) 1.8 % (0.0-7.0); Hematocrit 40.4 % (41.0-53.0); Lymphocytes % (auto) 18.9 % (10.0-50.0); Mean Corpuscular Hemoglobin 23.8 pg (28.0-32.0); Mean Corpuscular Hgb Conc. 32.2 g/dL (32.0-36.0); Monocytes % (auto) 8.5 % (0.0-12.0); Neutrophils % (auto) 70.2 % (37.0-80.0); Platelet Count (auto) 252 10^3/uL (140-450); Red Blood Cells 5.46 10^6/uL (4.5-5.90); White Blood Cell 5.7 10^3/uL (4.4-10.8)
[2020-06-13 12:18] LABS: Red Cell Distribution Width 22.4 % (11.8-14.3)
[2020-06-13 12:23] LABS: Albumin 3.3 g/dL (3.4-5.0); Potassium 3.4 mmol/L (3.5-5.1)
[2020-06-13 12:28] LABS: Bilirubin, Total 0.3 mg/dL (0.2-1.0); Total Protein 7.9 g/dL (6.4-8.2)
[2020-06-13 12:47] LABS: BUN/Creatinine Ratio 13.1
--- NOTE | 2020-06-13 13:59 | NUR ---
Discharge Instructions See e-MAR for any mediations given with this visit. Patient education given on disease process. Patient verbalized understanding. Previous labs reviewed. Patient discharged in stable condition with after care instructions and follow up appointment ON FRIDAY. NOTE MILRINONE IV [id number] ADMIN BY MADDI HARDY HEPARIN IVP ADMIN BY MADDI HARDY VIT B12 IM ADMIN BY MADDI CABRERA LOT#[id number] EXP 03/14
== END | disposition home or self-care (01) ==
LOC: CHF HDHVI 09:23
PROVIDERS: ATTEND Internal Medicine Cardiovascular Disease
DX: I13.0 Hypertensive heart and chronic kidney disease with heart failure and stage 1 through stage 4 chronic kidney disease, or unspecified chronic kidney disease (principal); I50.43 Acute on chronic combined systolic (congestive) and diastolic (congestive) heart failure; N18.3 Chronic kidney disease, stage 3 (moderate); R53.83 Other fatigue; F41.9 Anxiety disorder, unspecified; I25.10 Atherosclerotic heart disease of native coronary artery without angina pectoris; I48.91 Unspecified atrial fibrillation; I42.8 Other cardiomyopathies; I73.9 Peripheral vascular disease, unspecified; J44.9 Chronic obstructive pulmonary disease, unspecified; G89.4 Chronic pain syndrome; E78.5 Hyperlipidemia, unspecified; E66.9 Obesity, unspecified; Z68.34 Body mass index [BMI] 34.0-34.9, adult; Z95.810 Presence of automatic (implantable) cardiac defibrillator; Z95.5 Presence of coronary angioplasty implant and graft; Z79.01 Long term (current) use of anticoagulants; Z79.02 Long term (current) use of antithrombotics/antiplatelets; Z86.73 Personal history of transient ischemic attack (TIA), and cerebral infarction without residual deficits
CPT/HCPCS: 36415; 80053; 83880; 85025; 96365; 96366; 96372; G0463; J1642; J2260; J3420

== ENCOUNTER → 2020-06-15 | Outpatient (CLI) | payer MEDICARE, MEDICAID ==
[2020-06-15] VITALS (11 sets, daily range): BP systolic 101–121; BP diastolic 59–78
[~2020-06-15] MED LIST changes: -CYANOCOBALAMIN (B-12) 1000 MCG/1 ML VIAL IM ONE; -CYANOCOBALAMIN (B-12) 1000 MCG/1 ML VIAL ONE
--- NOTE | 2020-06-15 08:58 | NUR ---
CLINIC PT ARRIVED TO THE CHF CLINIC FOR WEEKLY CHF EVAL AND TX. A/OX4, AMBULATORY, BREATHING IS EVEN AND UNLABORED. PT HAS A 1 LB WT INCREASE SINCE LAST VISIT ON 06/13/20.
--- NOTE | 2020-06-15 09:13 | NUR ---
MILRINONE IV STARTED @ 0.375 MCG/KG/MIN PER MD ORDERS. VSS. WILL CONTINUE TO MONITOR.
--- NOTE | 2020-06-15 11:39 | NUR ---
PT TOLERATING MILRINONE IV. PORT SITE BENIGN. VSS. WILL CONTINUE TO MONITOR.
--- NOTE | 2020-06-15 13:38 | NUR ---
Discharge Instructions See e-MAR for any mediations given with this visit. Patient education given on disease process. Patient verbalized understanding. Previous labs reviewed. Patient discharged in stable condition with after care instructions and follow up appointment ON FRI. ECHO SCHEDULED 06/20/20 3PM NOTE MILRINONE IV [id number] ADMIN BY MADDI HARDY HEPARIN IVP ADMIN BY MADDI HARDY
== END | disposition home or self-care (01) ==
LOC: CHF HDHVI 09:10
PROVIDERS: ATTEND Internal Medicine Cardiovascular Disease
DX: I13.2 Hypertensive heart and chronic kidney disease with heart failure and with stage 5 chronic kidney disease, or end stage renal disease (principal); I50.43 Acute on chronic combined systolic (congestive) and diastolic (congestive) heart failure; N18.3 Chronic kidney disease, stage 3 (moderate); F41.9 Anxiety disorder, unspecified; I25.10 Atherosclerotic heart disease of native coronary artery without angina pectoris; I42.8 Other cardiomyopathies; I73.9 Peripheral vascular disease, unspecified; I48.91 Unspecified atrial fibrillation; J44.9 Chronic obstructive pulmonary disease, unspecified; G89.4 Chronic pain syndrome; E78.5 Hyperlipidemia, unspecified; E66.9 Obesity, unspecified; Z68.34 Body mass index [BMI] 34.0-34.9, adult; Z95.810 Presence of automatic (implantable) cardiac defibrillator; Z86.73 Personal history of transient ischemic attack (TIA), and cerebral infarction without residual deficits; Z79.01 Long term (current) use of anticoagulants; Z79.02 Long term (current) use of antithrombotics/antiplatelets; Z79.899 Other long term (current) drug therapy
CPT/HCPCS: 96365; 96366; G0463; J1642; J2260

== ENCOUNTER → 2020-06-20 | Outpatient (CLI) | payer MEDICARE, MEDICAID ==
[2020-06-20] VITALS (11 sets, daily range): BP systolic 95–126; BP diastolic 43–78
--- NOTE | 2020-06-20 09:07 | NUR ---
CLINIC PT ARRIVED TO THE CHF CLINIC FOR WEEKLY CHF EVAL AND TX. A/OX4, AMBULATORY, BREATHING IS EVEN AND UNLABORED.
--- NOTE | 2020-06-20 09:28 | NUR ---
MILRINONE IV STARTED @ 0.375 MCG/KG/MIN PER MD ORDERS. VSS. WILL CONTINUE TO MONITOR.
--- NOTE | 2020-06-20 11:33 | NUR ---
PT TOLERATING MILRINONE INFUSION. PORT SITE BENIGN. VSS. WILL CONTINUE TO MONITOR.
--- NOTE | 2020-06-20 11:58 | NUR ---
PRINCE PAUSED, PT TO BACK OFFICE FOR ECHO. WILL RESUME TX WHEN PT RETURNS.
[2020-06-20 12:05] LABS: Eosinophils # (auto) 0.1 10 ^3/uL (0-0.8); Hemoglobin 13.6 g/dL (13.5-17.5); Mean Corpuscular Hemoglobin 23.8 pg (28.0-32.0); Monocytes # (auto) 0.7 10 ^3/uL (0-1.3); Neutrophils # (auto) 4.6 10 ^3/uL (1.6-8.6)
[2020-06-20 12:07] LABS: Basophils # (auto) 0 10 ^3/uL (0-0.2); Basophils % (auto) 0.6 % (0.0-2.0); Eosinophils % (auto) 1.8 % (0.0-7.0); Hematocrit 42.1 % (41.0-53.0); Lymphocytes # (auto) 1.4 10 ^3/uL (0.4-5.4); Lymphocytes % (auto) 20.3 % (10.0-50.0); Mean Corpuscular Hgb Conc. 32.2 g/dL (32.0-36.0); Mean Corpuscular Volume 73.8 fL (80.0-100.0); Monocytes % (auto) 9.6 % (0.0-12.0); Neutrophils % (auto) 67.7 % (37.0-80.0); Nucleated Red Blood Cells % 0.4 %; Platelet Count (auto) 311 10^3/uL (140-450); Red Blood Cells 5.71 10^6/uL (4.5-5.90); White Blood Cell 6.8 10^3/uL (4.4-10.8)
[2020-06-20 12:09] LABS: Calcium 9.1 mg/dL (8.5-10.1); Magnesium 2.5 mg/dL (1.6-2.6); Potassium 4.4 mmol/L (3.5-5.1); Red Cell Distribution Width 22.4 % (11.8-14.3)
[2020-06-20 12:11] LABS: BUN/Creatinine Ratio 14.7
--- NOTE | 2020-06-20 12:25 | NUR ---
PT RETURN FROM ECHO, MILRINONE INFUSION RESUMED. VSS. WILL CONTINUE TO MONITOR.
--- NOTE | 2020-06-20 14:19 | NUR ---
Discharge Instructions See e-MAR for any mediations given with this visit. Patient education given on disease process. Patient verbalized understanding. Previous labs reviewed. Patient discharged in stable condition with after care instructions and follow up appointment. NOTE MILRINONE IV [id number] ADMIN BY MADDI HARDY HEPARIN IVP ADMIN BY MADDI HARDY
== END | disposition home or self-care (01) ==
LOC: CHF HDHVI 09:12
PROVIDERS: ATTEND Internal Medicine Cardiovascular Disease
DX: I13.0 Hypertensive heart and chronic kidney disease with heart failure and stage 1 through stage 4 chronic kidney disease, or unspecified chronic kidney disease (principal); I50.23 Acute on chronic systolic (congestive) heart failure; N18.3 Chronic kidney disease, stage 3 (moderate); R53.83 Other fatigue; F41.9 Anxiety disorder, unspecified; I25.10 Atherosclerotic heart disease of native coronary artery without angina pectoris; I48.91 Unspecified atrial fibrillation; I42.8 Other cardiomyopathies; I73.9 Peripheral vascular disease, unspecified; J44.9 Chronic obstructive pulmonary disease, unspecified; G89.29 Other chronic pain; E78.5 Hyperlipidemia, unspecified; E66.9 Obesity, unspecified; Z68.34 Body mass index [BMI] 34.0-34.9, adult; Z95.810 Presence of automatic (implantable) cardiac defibrillator; Z86.73 Personal history of transient ischemic attack (TIA), and cerebral infarction without residual deficits; Z79.01 Long term (current) use of anticoagulants; Z79.02 Long term (current) use of antithrombotics/antiplatelets; Z79.899 Other long term (current) drug therapy
CPT/HCPCS: 36415; 80048; 83735; 83880; 85025; 85610; 93306; 96365; 96366; G0463; J1642; J2260

== ENCOUNTER → 2020-06-22 | Outpatient (CLI) | payer MEDICARE, MEDICAID ==
[2020-06-22] VITALS (11 sets, daily range): BP systolic 105–119; BP diastolic 56–71
--- NOTE | 2020-06-22 09:00 | NUR ---
CLINIC PT ARRIVED TO THE CHF CLINIC FOR WEEKLY CHF EVAL AND TX. A/OX4, AMBULATORY, BREATHING IS EVEN AND UNLABORED. PT HAS A 1 LB WT INCREASE SINCE LAST VISIT ON 06/20/20.
--- NOTE | 2020-06-22 09:11 | NUR ---
MILRINONE IV STARTED @ 0.375 MCG/KG/MIN PER MD ORDERS. VSS. WILL CONTINUE TO MONITOR.
--- NOTE | 2020-06-22 11:22 | NUR ---
PT TOLERATING MILRINONE INFUSION. PORT SITE BENIGN. VSS. WILL CONTINUE TO MONITOR.
--- NOTE | 2020-06-22 13:36 | NUR ---
Discharge Instructions See e-MAR for any mediations given with this visit. Patient education given on disease process. Patient verbalized understanding. Previous labs reviewed. Patient discharged in stable condition with after care instructions and follow up appointment ON FRI. NOTE MILRINONE IV [id number] ADMIN BY MADDI HARDY HEPARIN IVP ADMIN BY MADDI HARDY
== END | disposition home or self-care (01) ==
LOC: CHF HDHVI 09:23
PROVIDERS: ATTEND Internal Medicine Cardiovascular Disease
DX: I13.0 Hypertensive heart and chronic kidney disease with heart failure and stage 1 through stage 4 chronic kidney disease, or unspecified chronic kidney disease (principal); I50.23 Acute on chronic systolic (congestive) heart failure; N18.30 Chronic kidney disease, stage 3 unspecified; R53.83 Other fatigue; F41.9 Anxiety disorder, unspecified; I25.10 Atherosclerotic heart disease of native coronary artery without angina pectoris; I73.9 Peripheral vascular disease, unspecified; I48.91 Unspecified atrial fibrillation; I42.8 Other cardiomyopathies; J44.9 Chronic obstructive pulmonary disease, unspecified; E78.5 Hyperlipidemia, unspecified; G89.4 Chronic pain syndrome; E66.9 Obesity, unspecified; Z68.34 Body mass index [BMI] 34.0-34.9, adult; Z79.899 Other long term (current) drug therapy; Z79.01 Long term (current) use of anticoagulants; Z79.02 Long term (current) use of antithrombotics/antiplatelets; Z95.810 Presence of automatic (implantable) cardiac defibrillator; Z86.73 Personal history of transient ischemic attack (TIA), and cerebral infarction without residual deficits
CPT/HCPCS: 96365; 96366; G0463; J1642; J2260

== ENCOUNTER → 2020-06-27 | Outpatient (CLI) | payer MEDICARE, MEDICAID ==
[2020-06-27] VITALS (9 sets, daily range): BP systolic 98–133; BP diastolic 53–71
[~2020-06-27] MED LIST changes: +DOBUTamine 1000MCG/ML 250 ML IV ONE
--- NOTE | 2020-06-27 09:03 | NUR ---
PATIENT INTO CLINIC FOR SCHEDULED TX, AAOx4, AMBULATORY, BREATHING EVEN AND UNLABORED. PATIENT IS DOWN 2 LBS, SAYS HE DISLIKES HIS LIVING ARRANGEMENTS AND WAS PREVIOUSLY LIVING IN HIS CAR, WE WILL CONTINUE TO MONITOR PATIENT DISEASE PROCESS AND LIVING SITUATION.
--- NOTE | 2020-06-27 09:25 | NUR ---
MILRINONE INFUSION STARTED, PATIENT HAS AICD, WILL CONTINUE TO MONITOR.
--- NOTE | 2020-06-27 10:20 | NUR ---
PATIENT UP TO RESTROOM, BREATHING EVEN AND UNLABORED.
--- NOTE | 2020-06-27 12:00 | NUR ---
PATIENT UP TO THE BATHROOM WITH MINIMAL ASSIST, WILL CONTINUE TO MONITOR.
--- NOTE | 2020-06-27 13:00 | NUR ---
PATIENT UP TO THE BATHROOM WITH MINIMAL ASSIST, WILL CONTINUE TO MONITOR.
--- NOTE | 2020-06-27 14:11 | NUR ---
Discharge Instructions See e-MAR for any mediations given with this visit. Patient education given on disease process. Patient verbalized understanding. Previous labs reviewed. Patient discharged in stable condition with after care instructions and follow up appointment. NOTE MILRINONE [id number] ADMIN BY CARLY HARDY. HEPARIN ADMIN BY CARLY HARDY.
== END | disposition home or self-care (01) ==
LOC: CHF HDHVI 09:19
PROVIDERS: ATTEND Internal Medicine Cardiovascular Disease
DX: I13.0 Hypertensive heart and chronic kidney disease with heart failure and stage 1 through stage 4 chronic kidney disease, or unspecified chronic kidney disease (principal); I50.23 Acute on chronic systolic (congestive) heart failure; N18.30 Chronic kidney disease, stage 3 unspecified; F41.9 Anxiety disorder, unspecified; I25.10 Atherosclerotic heart disease of native coronary artery without angina pectoris; I73.9 Peripheral vascular disease, unspecified; I48.91 Unspecified atrial fibrillation; I42.8 Other cardiomyopathies; J44.9 Chronic obstructive pulmonary disease, unspecified; G89.4 Chronic pain syndrome; E78.5 Hyperlipidemia, unspecified; R53.83 Other fatigue; E66.9 Obesity, unspecified; Z68.34 Body mass index [BMI] 34.0-34.9, adult; Z79.01 Long term (current) use of anticoagulants; Z79.02 Long term (current) use of antithrombotics/antiplatelets; Z95.810 Presence of automatic (implantable) cardiac defibrillator; Z79.899 Other long term (current) drug therapy; Z86.73 Personal history of transient ischemic attack (TIA), and cerebral infarction without residual deficits
CPT/HCPCS: 36415; 82565; 83880; 84132; 84520; 96365; 96366; G0463; J1250; J1642; J2260

== ENCOUNTER → 2020-06-29 | Outpatient (CLI) | payer MEDICARE, MEDICAID ==
[~2020-06-29] VITALS: Ht 172.7 cm; Wt 122.2 kg
[2020-06-29] VITALS (11 sets, daily range): BP systolic 100–117; BP diastolic 54–71
[~2020-06-29] MED LIST changes: -DOBUTamine 1000MCG/ML 250 ML IV ONE
--- NOTE | 2020-06-29 09:12 | NUR ---
CLINIC PT ARRIVED TO THE CHF CLINIC FOR WEEKLY CHF EVAL AND TX. A/OX4, AMBULATORY, BREATHING IS EVEN AND UNLABORED. PT HAS A 1LB WT INCREASE SINCE LAST VISIT ON 06/27/20
--- NOTE | 2020-06-29 09:21 | NUR ---
Mary Jane Cath Insertion 20 gauge Mary Jane Cath inserted using sterile technique in the R upper chest with occlusive dressing over quarles needle. Patient tolerated procedure well. See e-MAR for medications given during this visit. NOTE INSERTED BY CARLY HARDY
--- NOTE | 2020-06-29 09:25 | NUR ---
MILRINONE IV STARTED @ 0.375 MCG/KG/MIN PER MD ORDERS. VSS. WILL CONTINUE TO MONITOR.
--- NOTE | 2020-06-29 11:50 | NUR ---
PT TOLERATING MILRINONE INFUSION. PORT SITE BENIGN, VSS, WILL CONTINUE TO MONITOR.
--- NOTE | 2020-06-29 13:54 | NUR ---
Discharge Instructions See e-MAR for any mediations given with this visit. Patient education given on disease process. Patient verbalized understanding. Previous labs reviewed. Patient discharged in stable condition with after care instructions and follow up appointment ON FRI. NOTE MILRINONE IV [id number] ADMIN BY MADDI HARDY HEPARIN IVP ADMIN BY MADDI HARDY
== END | disposition home or self-care (01) ==
LOC: CHF HDHVI 09:27
PROVIDERS: ATTEND Internal Medicine Cardiovascular Disease
DX: I13.0 Hypertensive heart and chronic kidney disease with heart failure and stage 1 through stage 4 chronic kidney disease, or unspecified chronic kidney disease (principal); I50.23 Acute on chronic systolic (congestive) heart failure; N18.30 Chronic kidney disease, stage 3 unspecified; I25.10 Atherosclerotic heart disease of native coronary artery without angina pectoris; I73.9 Peripheral vascular disease, unspecified; I48.91 Unspecified atrial fibrillation; I42.8 Other cardiomyopathies; F41.9 Anxiety disorder, unspecified; J44.9 Chronic obstructive pulmonary disease, unspecified; G89.4 Chronic pain syndrome; E78.5 Hyperlipidemia, unspecified; R53.83 Other fatigue; E66.9 Obesity, unspecified; Z68.34 Body mass index [BMI] 34.0-34.9, adult; Z79.01 Long term (current) use of anticoagulants; Z79.02 Long term (current) use of antithrombotics/antiplatelets; Z95.810 Presence of automatic (implantable) cardiac defibrillator; Z79.899 Other long term (current) drug therapy; Z86.73 Personal history of transient ischemic attack (TIA), and cerebral infarction without residual deficits
CPT/HCPCS: 96365; 96366; G0463; J1642; J2260

== ENCOUNTER → 2020-07-25 | Outpatient (CLI) | payer MEDICARE, MEDICAID ==
[2020-07-25] VITALS (11 sets, daily range): BP systolic 102–136; BP diastolic 64–80
[~2020-07-25] MED LIST changes: +CYANOCOBALAMIN (B-12) 1000 MCG/1 ML VIAL IM ONE; +CYANOCOBALAMIN (B-12) 1000 MCG/1 ML VIAL ONE; +FUROSEMIDE 20 MG/2 ML VIAL IV ONE; +FUROSEMIDE 20 MG/2 ML VIAL ONE; +POTASSIUM CHL 10 Meq TABLET PO ONE
--- NOTE | 2020-07-25 09:08 | NUR ---
CLINIC PT ARRIVED TO THE CHF CLINIC FOR SCHEDULED WEEKLY CHF EVAL AND TX. PT HAS MISSED THE PREVIOUS 2 WEEK TX DO TO GOING ON A TRIP ACROSS THE [place]. PT IN UP 9 LBS IN WT SINCE LAST TX ON 06/29/20. HE STATED THAT HE WAS FEELING A LOT WORSE ON THE ROAD BUT DOESN'T FEEL BAD TODAY. A/OX4, AMBULATORY, BREATHING IS EVEN AND UNLABORED.
--- NOTE | 2020-07-25 09:21 | NUR ---
MILRINONE IV STARTED @ 0.375 MCG/KG/MIN PER MD ORDERS, VSS, WILL CONTINUE TO MONITOR.
--- NOTE | 2020-07-25 11:04 | NUR ---
PT TOLERATING MILRINONE INFUSION, PORT SITE BENIGN, VSS, WILL CONTINUE TO MONITOR.
[2020-07-25 11:22] LABS: Basophils # (auto) 0 10 ^3/uL (0-0.2); Basophils % (auto) 0.6 % (0.0-2.0); Eosinophils # (auto) 0.1 10 ^3/uL (0-0.8); Hematocrit 40.3 % (41.0-53.0); Lymphocytes # (auto) 0.9 10 ^3/uL (0.4-5.4); Mean Corpuscular Volume 78.6 fL (80.0-100.0); Monocytes # (auto) 0.5 10 ^3/uL (0-1.3); Red Blood Cells 5.13 10^6/uL (4.5-5.90)
[2020-07-25 11:25] LABS: Eosinophils % (auto) 1.4 % (0.0-7.0); Hemoglobin 12.8 g/dL (13.5-17.5); Lymphocytes % (auto) 17.7 % (10.0-50.0); Mean Corpuscular Hemoglobin 24.9 pg (28.0-32.0); Mean Corpuscular Hgb Conc. 31.7 g/dL (32.0-36.0); Monocytes % (auto) 8.4 % (0.0-12.0); Neutrophils # (auto) 3.9 10 ^3/uL (1.6-8.6); Neutrophils % (auto) 71.9 % (37.0-80.0); Nucleated Red Blood Cells % 0.1 %; Platelet Count (auto) 268 10^3/uL (140-450); White Blood Cell 5.4 10^3/uL (4.4-10.8)
[2020-07-25 11:28] LABS: Red Cell Distribution Width 23.8 % (11.8-14.3)
[2020-07-25 11:35] LABS: Albumin 3.3 g/dL (3.4-5.0); Magnesium 2.2 mg/dL (1.6-2.6); Potassium 3.9 mmol/L (3.5-5.1)
[2020-07-25 11:40] LABS: BUN/Creatinine Ratio 12.3; Bilirubin, Total 0.5 mg/dL (0.2-1.0); Total Protein 7.7 g/dL (6.4-8.2)
--- NOTE | 2020-07-25 12:18 | NUR ---
LABS REVIEWED NEW ORDERS RECEIVED AND CARRIED OUT.
--- NOTE | 2020-07-25 12:43 | NUR ---
Mary Jane Cath Removal Horowitz needle D/C'd after Heparin flush per protocol. See e-MAR for medications given during this visit. Sterile occlusive dressing to site. Patient tolerated procedure well. Site benign post infusion. NOTE REMOVED BY YULY HARDY
--- NOTE | 2020-07-25 13:50 | NUR ---
Discharge Instructions See e-MAR for any mediations given with this visit. Patient education given on disease process. Patient verbalized understanding. Previous labs reviewed. Patient discharged in stable condition with after care instructions and follow up appointment ON . NOTE MILRINONE IV [id number] ADMIN BY MADDI HARDY HEPARIN IVP ADMIN BY YULY HARDY VIT B12 IM ADMIN BY CAMI Eller DELTOID LOT#[id number] EXP 01/11 LASIX IVP ADMIN BY YULY HARDY KDUR PO ADMIN BY YULY HARDY
== END | disposition home or self-care (01) ==
LOC: CHF HDHVI 09:29
PROVIDERS: ATTEND Internal Medicine Cardiovascular Disease
DX: I13.0 Hypertensive heart and chronic kidney disease with heart failure and stage 1 through stage 4 chronic kidney disease, or unspecified chronic kidney disease (principal); N18.30 Chronic kidney disease, stage 3 unspecified; I50.23 Acute on chronic systolic (congestive) heart failure; R53.83 Other fatigue; R60.9 Edema, unspecified; F41.9 Anxiety disorder, unspecified; I25.10 Atherosclerotic heart disease of native coronary artery without angina pectoris; I42.8 Other cardiomyopathies; I73.9 Peripheral vascular disease, unspecified; I48.91 Unspecified atrial fibrillation; J44.9 Chronic obstructive pulmonary disease, unspecified; G89.4 Chronic pain syndrome; E78.5 Hyperlipidemia, unspecified; E66.9 Obesity, unspecified; Z68.34 Body mass index [BMI] 34.0-34.9, adult; Z79.01 Long term (current) use of anticoagulants; Z79.02 Long term (current) use of antithrombotics/antiplatelets; Z95.810 Presence of automatic (implantable) cardiac defibrillator; Z86.73 Personal history of transient ischemic attack (TIA), and cerebral infarction without residual deficits; Z79.899 Other long term (current) drug therapy
CPT/HCPCS: 36415; 80053; 83735; 83880; 85025; 96365; 96366; 96372; 96375; G0463; J1642; J1940; J2260; J3420

== ENCOUNTER → 2020-07-27 | Outpatient (CLI) | payer MEDICARE, MEDICAID ==
[~2020-07-27] VITALS: Ht 30.5 cm; Wt 125.8 kg
[2020-07-27] VITALS (11 sets, daily range): BP systolic 107–125; BP diastolic 54–79
[~2020-07-27] MED LIST changes: -CYANOCOBALAMIN (B-12) 1000 MCG/1 ML VIAL IM ONE; -CYANOCOBALAMIN (B-12) 1000 MCG/1 ML VIAL ONE; -FUROSEMIDE 20 MG/2 ML VIAL IV ONE; -FUROSEMIDE 20 MG/2 ML VIAL ONE; -POTASSIUM CHL 10 Meq TABLET PO ONE
== END | disposition home or self-care (01) ==
LOC: CHF HDHVI 08:56
PROVIDERS: ATTEND Internal Medicine Cardiovascular Disease
DX: I13.0 Hypertensive heart and chronic kidney disease with heart failure and stage 1 through stage 4 chronic kidney disease, or unspecified chronic kidney disease (principal); I50.23 Acute on chronic systolic (congestive) heart failure; N18.30 Chronic kidney disease, stage 3 unspecified; F41.9 Anxiety disorder, unspecified; I25.10 Atherosclerotic heart disease of native coronary artery without angina pectoris; I42.8 Other cardiomyopathies; I73.9 Peripheral vascular disease, unspecified; I48.91 Unspecified atrial fibrillation; J44.9 Chronic obstructive pulmonary disease, unspecified; G89.4 Chronic pain syndrome; E78.5 Hyperlipidemia, unspecified; E66.9 Obesity, unspecified; Z68.34 Body mass index [BMI] 34.0-34.9, adult; Z79.899 Other long term (current) drug therapy; Z79.01 Long term (current) use of anticoagulants; Z79.02 Long term (current) use of antithrombotics/antiplatelets; Z95.810 Presence of automatic (implantable) cardiac defibrillator; Z86.73 Personal history of transient ischemic attack (TIA), and cerebral infarction without residual deficits
CPT/HCPCS: 96365; 96366; G0463; J1642; J2260

== ENCOUNTER → 2020-08-01 | Outpatient (CLI) | payer MEDICARE, MEDICAID ==
[2020-08-01] VITALS (12 sets, daily range): BP systolic 107–126; BP diastolic 67–81
--- NOTE | 2020-08-01 08:51 | NUR ---
CLINIC PT ARRIVED TO THE CHF CLINIC FOR SCHEDULED WEEKLY CHF EVAL AND TX, A/OX4, AMBULATORY, BREATHING IS EVEN AND UNLABORED. PT HAS A 4LB WT DECREASE SINCE LAST VISIT ON 07/27/20.
--- NOTE | 2020-08-01 09:04 | NUR ---
MILRINONE IV STARTED @ 0.375 MCG/KG/MIN PER MD ORDERS, VSS, WILL CONTINUE TO MONITOR
--- NOTE | 2020-08-01 10:51 | NUR ---
PT TOLERATING MILRINONE INFUSION, PORT SITE BENIGN, VSS, WILL CONTINUE TO MONITOR.
[2020-08-01 12:22] LABS: BUN/Creatinine Ratio 13.9; Magnesium 2.6 mg/dL (1.6-2.6); Potassium 3.9 mmol/L (3.5-5.1)
--- NOTE | 2020-08-01 13:27 | NUR ---
Discharge Instructions See e-MAR for any mediations given with this visit. Patient education given on disease process. Patient verbalized understanding. Previous labs reviewed. Patient discharged in stable condition with after care instructions and follow up appointment ON . [place] IV [id number] ADMIN BY MADDI HARDY HEPARIN IVP ADMIN BY MADDI HARDY
== END | disposition home or self-care (01) ==
LOC: CHF HDHVI 09:14
PROVIDERS: ATTEND Internal Medicine Cardiovascular Disease
DX: I13.0 Hypertensive heart and chronic kidney disease with heart failure and stage 1 through stage 4 chronic kidney disease, or unspecified chronic kidney disease (principal); I50.23 Acute on chronic systolic (congestive) heart failure; N18.30 Chronic kidney disease, stage 3 unspecified; F41.9 Anxiety disorder, unspecified; I25.10 Atherosclerotic heart disease of native coronary artery without angina pectoris; J44.9 Chronic obstructive pulmonary disease, unspecified; I73.9 Peripheral vascular disease, unspecified; I48.91 Unspecified atrial fibrillation; E78.5 Hyperlipidemia, unspecified; Z79.01 Long term (current) use of anticoagulants; Z79.02 Long term (current) use of antithrombotics/antiplatelets; Z79.899 Other long term (current) drug therapy; Z95.818 Presence of other cardiac implants and grafts; Z86.73 Personal history of transient ischemic attack (TIA), and cerebral infarction without residual deficits
CPT/HCPCS: 36415; 80048; 83735; 83880; 96365; 96366; G0463; J1642; J2260

== ENCOUNTER → 2020-08-03 | Outpatient (CLI) | payer MEDICARE, MEDICAID ==
[2020-08-03] VITALS (11 sets, daily range): BP systolic 98–119; BP diastolic 52–74
== END | disposition home or self-care (01) ==
LOC: CHF HDHVI 09:08
PROVIDERS: ATTEND Internal Medicine Cardiovascular Disease
DX: I13.0 Hypertensive heart and chronic kidney disease with heart failure and stage 1 through stage 4 chronic kidney disease, or unspecified chronic kidney disease (principal); N18.30 Chronic kidney disease, stage 3 unspecified; I50.23 Acute on chronic systolic (congestive) heart failure; R53.83 Other fatigue; F41.9 Anxiety disorder, unspecified; I25.10 Atherosclerotic heart disease of native coronary artery without angina pectoris; I48.91 Unspecified atrial fibrillation; I73.9 Peripheral vascular disease, unspecified; J44.9 Chronic obstructive pulmonary disease, unspecified; E78.5 Hyperlipidemia, unspecified; G89.4 Chronic pain syndrome; E66.9 Obesity, unspecified; Z68.34 Body mass index [BMI] 34.0-34.9, adult; Z79.01 Long term (current) use of anticoagulants; Z79.02 Long term (current) use of antithrombotics/antiplatelets; Z79.899 Other long term (current) drug therapy; Z95.5 Presence of coronary angioplasty implant and graft; Z95.810 Presence of automatic (implantable) cardiac defibrillator; Z86.73 Personal history of transient ischemic attack (TIA), and cerebral infarction without residual deficits
CPT/HCPCS: 96365; 96366; G0463; J1642; J2260

== ENCOUNTER → 2020-08-08 | Outpatient (CLI) | payer MEDICARE, MEDICAID ==
[2020-08-08] VITALS (11 sets, daily range): BP systolic 93–126; BP diastolic 46–75
[~2020-08-08] MED LIST changes: +BUMETANIDE 1mg/4ml VIAL (0.25mg/ml) ONE; +BUMETANIDE 2.5mg/10ml (0.25 mg/ml) INJ IV ONE
[2020-08-08 12:54] LABS: BUN/Creatinine Ratio 15.2; Calcium 8.7 mg/dL (8.5-10.1)
== END | disposition home or self-care (01) ==
LOC: CHF HDHVI 09:17
PROVIDERS: ATTEND Internal Medicine Cardiovascular Disease
DX: I13.0 Hypertensive heart and chronic kidney disease with heart failure and stage 1 through stage 4 chronic kidney disease, or unspecified chronic kidney disease (principal); I50.23 Acute on chronic systolic (congestive) heart failure; N18.30 Chronic kidney disease, stage 3 unspecified; I25.10 Atherosclerotic heart disease of native coronary artery without angina pectoris; I48.91 Unspecified atrial fibrillation; I42.8 Other cardiomyopathies; I73.9 Peripheral vascular disease, unspecified; R53.83 Other fatigue; F41.9 Anxiety disorder, unspecified; J44.9 Chronic obstructive pulmonary disease, unspecified; G89.4 Chronic pain syndrome; E78.5 Hyperlipidemia, unspecified; E66.9 Obesity, unspecified; Z68.34 Body mass index [BMI] 34.0-34.9, adult; Z79.01 Long term (current) use of anticoagulants; Z79.02 Long term (current) use of antithrombotics/antiplatelets; Z79.899 Other long term (current) drug therapy; Z95.810 Presence of automatic (implantable) cardiac defibrillator; Z95.5 Presence of coronary angioplasty implant and graft; Z86.73 Personal history of transient ischemic attack (TIA), and cerebral infarction without residual deficits
CPT/HCPCS: 36415; 80048; 83880; 96365; 96366; 96375; G0463; J1642; J2260; J3490

== ENCOUNTER → 2020-08-10 | Outpatient (CLI) | payer MEDICARE, MEDICAID ==
[~2020-08-10] VITALS: Ht 30.5 cm; Wt 0.5 kg
[2020-08-10] VITALS (9 sets, daily range): BP systolic 98–125; BP diastolic 54–89
[~2020-08-10] MED LIST changes: -BUMETANIDE 1mg/4ml VIAL (0.25mg/ml) ONE; -BUMETANIDE 2.5mg/10ml (0.25 mg/ml) INJ IV ONE
== END | disposition home or self-care (01) ==
LOC: CHF HDHVI 08:48
PROVIDERS: ATTEND Internal Medicine Cardiovascular Disease
DX: I13.2 Hypertensive heart and chronic kidney disease with heart failure and with stage 5 chronic kidney disease, or end stage renal disease (principal); I50.23 Acute on chronic systolic (congestive) heart failure; N18.30 Chronic kidney disease, stage 3 unspecified; R53.83 Other fatigue; F41.9 Anxiety disorder, unspecified; I25.10 Atherosclerotic heart disease of native coronary artery without angina pectoris; I73.9 Peripheral vascular disease, unspecified; I42.8 Other cardiomyopathies; I48.91 Unspecified atrial fibrillation; J44.9 Chronic obstructive pulmonary disease, unspecified; G89.4 Chronic pain syndrome; E78.5 Hyperlipidemia, unspecified; E66.9 Obesity, unspecified; Z68.34 Body mass index [BMI] 34.0-34.9, adult; Z79.01 Long term (current) use of anticoagulants; Z95.810 Presence of automatic (implantable) cardiac defibrillator; Z95.5 Presence of coronary angioplasty implant and graft; Z79.899 Other long term (current) drug therapy; Z79.02 Long term (current) use of antithrombotics/antiplatelets; Z86.73 Personal history of transient ischemic attack (TIA), and cerebral infarction without residual deficits
CPT/HCPCS: 96365; 96366; G0463; J1642; J2260

== ENCOUNTER → 2020-08-15 | Outpatient (CLI) | payer MEDICARE, MEDICAID ==
[2020-08-15] VITALS (11 sets, daily range): BP systolic 102–134; BP diastolic 48–83
[~2020-08-15] VITALS: Ht 30.5 cm; Wt 125.5 kg
--- NOTE | 2020-08-15 08:56 | NUR ---
CLINIC PT ARRIVED TO THE CHF CLINIC FOR SCHEDULED CHF EVAL AND TX, A/OX4, AMBULATORY, BREATHING IS EVEN AND UNLABORED. PT IS DOWN .6 LB SINCE LAST VISIT ON 08/10/20.
--- NOTE | 2020-08-15 09:03 | NUR ---
MILRINONE IV STARTED @ 0.375 MCG/KG/MIN PER MD ORDERS, VSS, WILL CONTINUE TO MONITOR.
--- NOTE | 2020-08-15 10:48 | NUR ---
PT TOLERATING MILRINONE, PORT SITE BENIGN, VSS, WILL CONTINUE TO MONITOR.
[2020-08-15 12:03] LABS: Basophils # (auto) 0 10 ^3/uL (0-0.2); Eosinophils # (auto) 0.1 10 ^3/uL (0-0.8); Eosinophils % (auto) 1.4 % (0.0-7.0); Monocytes # (auto) 0.7 10 ^3/uL (0-1.3); Nucleated Red Blood Cells % 0.1 %
[2020-08-15 12:06] LABS: Basophils % (auto) 0.5 % (0.0-2.0); Hematocrit 44.2 % (41.0-53.0); Hemoglobin 14.1 g/dL (13.5-17.5); Lymphocytes # (auto) 1.1 10 ^3/uL (0.4-5.4); Lymphocytes % (auto) 19.7 % (10.0-50.0); Mean Corpuscular Hemoglobin 24.8 pg (28.0-32.0); Mean Corpuscular Hgb Conc. 31.9 g/dL (32.0-36.0); Mean Corpuscular Volume 77.7 fL (80.0-100.0); Monocytes % (auto) 11.6 % (0.0-12.0); Neutrophils # (auto) 3.7 10 ^3/uL (1.6-8.6); Neutrophils % (auto) 66.8 % (37.0-80.0); Platelet Count (auto) 254 10^3/uL (140-450); Red Blood Cells 5.69 10^6/uL (4.5-5.90); Red Cell Distribution Width 21.8 % (11.8-14.3); White Blood Cell 5.6 10^3/uL (4.4-10.8)
[2020-08-15 12:13] LABS: BUN/Creatinine Ratio 15.7; Calcium 8.9 mg/dL (8.5-10.1); Magnesium 2.6 mg/dL (1.6-2.6); Potassium 3.9 mmol/L (3.5-5.1)
--- NOTE | 2020-08-15 13:27 | NUR ---
Discharge Instructions See e-MAR for any mediations given with this visit. Patient education given on disease process. Patient verbalized understanding. Previous labs reviewed. Patient discharged in stable condition with after care instructions and follow up appointment ON FRIDAY. NOTE [place] IV [id number] ADMIN BY MADDI HARDY HEPARIN IVP ADMIN BY MADDI HARDY
== END | disposition home or self-care (01) ==
LOC: CHF HDHVI 09:05
PROVIDERS: ATTEND Internal Medicine Cardiovascular Disease
DX: I13.0 Hypertensive heart and chronic kidney disease with heart failure and stage 1 through stage 4 chronic kidney disease, or unspecified chronic kidney disease (principal); I50.23 Acute on chronic systolic (congestive) heart failure; N18.30 Chronic kidney disease, stage 3 unspecified; R53.83 Other fatigue; I25.10 Atherosclerotic heart disease of native coronary artery without angina pectoris; I48.91 Unspecified atrial fibrillation; I42.8 Other cardiomyopathies; I73.9 Peripheral vascular disease, unspecified; J44.9 Chronic obstructive pulmonary disease, unspecified; F41.9 Anxiety disorder, unspecified; G89.4 Chronic pain syndrome; E78.5 Hyperlipidemia, unspecified; E66.9 Obesity, unspecified; Z68.34 Body mass index [BMI] 34.0-34.9, adult; Z79.01 Long term (current) use of anticoagulants; Z79.02 Long term (current) use of antithrombotics/antiplatelets; Z95.810 Presence of automatic (implantable) cardiac defibrillator; Z95.5 Presence of coronary angioplasty implant and graft; Z79.899 Other long term (current) drug therapy; Z86.73 Personal history of transient ischemic attack (TIA), and cerebral infarction without residual deficits
CPT/HCPCS: 36415; 80048; 83735; 83880; 85025; 96365; 96366; G0463; J1642; J2260

== ENCOUNTER → 2020-08-24 | Outpatient (CLI) | payer MEDICARE, MEDICAID ==
[2020-08-24] VITALS (10 sets, daily range): BP systolic 112–139; BP diastolic 65–83
[~2020-08-24] MED LIST changes: +BUMETANIDE 1mg/4ml VIAL (0.25mg/ml) ONE; +BUMETANIDE 2.5mg/10ml (0.25 mg/ml) INJ IV ONE; +CYANOCOBALAMIN (B-12) 1000 MCG/1 ML VIAL IM ONE; +CYANOCOBALAMIN (B-12) 1000 MCG/1 ML VIAL ONE; +MILRINONE 20MG/100ML 100 ML IV SCH; +POTASSIUM CHL 20 Meq TABLET PO ONE
[2020-08-24 09:45] LABS: Basophils # (auto) 0 10 ^3/uL (0-0.2); Eosinophils # (auto) 0.1 10 ^3/uL (0-0.8); Eosinophils % (auto) 1.3 % (0.0-7.0); Mean Corpuscular Hemoglobin 24.5 pg (28.0-32.0); Monocytes # (auto) 0.6 10 ^3/uL (0-1.3); Nucleated Red Blood Cells % 0.1 %; White Blood Cell 6.2 10^3/uL (4.4-10.8)
[2020-08-24 09:47] LABS: Basophils % (auto) 0.5 % (0.0-2.0); Hematocrit 42.5 % (41.0-53.0); Hemoglobin 13.3 g/dL (13.5-17.5); Lymphocytes # (auto) 1.2 10 ^3/uL (0.4-5.4); Lymphocytes % (auto) 18.6 % (10.0-50.0); Mean Corpuscular Hgb Conc. 31.4 g/dL (32.0-36.0); Mean Corpuscular Volume 78.1 fL (80.0-100.0); Neutrophils # (auto) 4.3 10 ^3/uL (1.6-8.6); Neutrophils % (auto) 69.6 % (37.0-80.0); Platelet Count (auto) 229 10^3/uL (140-450); Red Blood Cells 5.44 10^6/uL (4.5-5.90)
[2020-08-24 09:49] LABS: Red Cell Distribution Width 21.9 % (11.8-14.3)
[2020-08-24 10:09] LABS: BUN/Creatinine Ratio 12.6; Potassium 3.6 mmol/L (3.5-5.1)
== END | disposition home or self-care (01) ==
LOC: CHF HDHVI 08:47
PROVIDERS: ATTEND Internal Medicine Cardiovascular Disease
DX: I13.0 Hypertensive heart and chronic kidney disease with heart failure and stage 1 through stage 4 chronic kidney disease, or unspecified chronic kidney disease (principal); I50.23 Acute on chronic systolic (congestive) heart failure; N18.30 Chronic kidney disease, stage 3 unspecified; D64.9 Anemia, unspecified; I25.10 Atherosclerotic heart disease of native coronary artery without angina pectoris; I42.8 Other cardiomyopathies; I73.9 Peripheral vascular disease, unspecified; I48.91 Unspecified atrial fibrillation; R53.83 Other fatigue; F41.9 Anxiety disorder, unspecified; J44.9 Chronic obstructive pulmonary disease, unspecified; G89.4 Chronic pain syndrome; E78.5 Hyperlipidemia, unspecified; E11.51 Type 2 diabetes mellitus with diabetic peripheral angiopathy without gangrene; E66.01 Morbid (severe) obesity due to excess calories; Z68.34 Body mass index [BMI] 34.0-34.9, adult; Z95.5 Presence of coronary angioplasty implant and graft; Z79.01 Long term (current) use of anticoagulants; Z79.02 Long term (current) use of antithrombotics/antiplatelets; Z95.810 Presence of automatic (implantable) cardiac defibrillator; Z95.1 Presence of aortocoronary bypass graft; Z79.899 Other long term (current) drug therapy; Z86.73 Personal history of transient ischemic attack (TIA), and cerebral infarction without residual deficits
CPT/HCPCS: 36415; 80048; 80162; 83880; 85025; 85610; 96365; 96366; 96372; 96375; G0463; J1642; J2260; J3420; J3490; 96374

== ENCOUNTER → 2020-08-29 | Outpatient (CLI) | payer MEDICARE, MEDICAID ==
[2020-08-29] VITALS (12 sets, daily range): BP systolic 100–130; BP diastolic 57–78
[~2020-08-29] MED LIST changes: -BUMETANIDE 1mg/4ml VIAL (0.25mg/ml) ONE; -BUMETANIDE 2.5mg/10ml (0.25 mg/ml) INJ IV ONE; -CYANOCOBALAMIN (B-12) 1000 MCG/1 ML VIAL IM ONE; -CYANOCOBALAMIN (B-12) 1000 MCG/1 ML VIAL ONE; -MILRINONE 20MG/100ML 100 ML IV SCH; -POTASSIUM CHL 20 Meq TABLET PO ONE
[2020-08-29 12:15] LABS: BUN/Creatinine Ratio 13.8; Calcium 8.7 mg/dL (8.5-10.1); Magnesium 2.5 mg/dL (1.6-2.6); Potassium 3.8 mmol/L (3.5-5.1)
== END | disposition home or self-care (01) ==
LOC: CHF HDHVI 08:50
PROVIDERS: ATTEND Internal Medicine Cardiovascular Disease
DX: I13.0 Hypertensive heart and chronic kidney disease with heart failure and stage 1 through stage 4 chronic kidney disease, or unspecified chronic kidney disease (principal); I50.23 Acute on chronic systolic (congestive) heart failure; N18.30 Chronic kidney disease, stage 3 unspecified; I48.91 Unspecified atrial fibrillation; I25.10 Atherosclerotic heart disease of native coronary artery without angina pectoris; I42.8 Other cardiomyopathies; J44.9 Chronic obstructive pulmonary disease, unspecified; R53.83 Other fatigue; E78.5 Hyperlipidemia, unspecified; G89.4 Chronic pain syndrome; F41.9 Anxiety disorder, unspecified; E66.9 Obesity, unspecified; Z68.34 Body mass index [BMI] 34.0-34.9, adult; Z79.01 Long term (current) use of anticoagulants; Z79.02 Long term (current) use of antithrombotics/antiplatelets; Z79.899 Other long term (current) drug therapy; Z95.5 Presence of coronary angioplasty implant and graft; Z95.810 Presence of automatic (implantable) cardiac defibrillator
CPT/HCPCS: 36415; 80048; 83735; 83880; 96365; 96366; G0463; J1642; J2260

== ENCOUNTER → 2020-08-31 | Outpatient (CLI) | payer MEDICARE, MEDICAID ==
[2020-08-31] VITALS (11 sets, daily range): BP systolic 107–129; BP diastolic 61–82
--- NOTE | 2020-08-31 08:50 | NUR ---
CLINIC PT ARRIVED TO CHF CLINIC FOR SCHEDULE CHF EVAL AND TREATMENT. PT AMBULATORY WITH STEADY GAIT, A/OX4 ABLE TO FOLLOW COMMANDS, BREATHING EVEN AN UNLABORED.
--- NOTE | 2020-08-31 08:59 | NUR ---
Colt Cath Insertion 20 gauge Colt Cath inserted using sterile technique in the R upper chest with occlusive dressing over quarles needle. Patient tolerated procedure well. See e-MAR for medications given during this visit. NOTE COLT-CATH ACCESSED BY HAYLEY TRAN
--- NOTE | 2020-08-31 09:02 | NUR ---
MILRINONE 0.375 IV STARTED Addendum: 08/31/20 at 0959 by MADDI PÉREZ RN RN VSS, WILL CONTINUE TO MONITOR.
--- NOTE | 2020-08-31 10:50 | NUR ---
PT TOLERATING MILRINONE, PORT SITE BENIGN, VSS, WILL CONTINUE TO MONITOR.
--- NOTE | 2020-08-31 13:29 | NUR ---
Colt Cath Removal Horowitz needle D/C'd after Heparin flush per protocol. See e-MAR for medications given during this visit. Sterile occlusive dressing to site. Patient tolerated procedure well. Site benign post infusion. NOTE COLT CATH DEACCESSED BY HAYLEY LINDA
--- NOTE | 2020-08-31 14:05 | NUR ---
Discharge Instructions See e-MAR for any mediations given with this visit. Patient education given on disease process. Patient verbalized understanding. Previous labs reviewed. Patient discharged in stable condition with after care instructions and follow up appointment ON FRIDAY. NOTE MILRINONE IV [id number] ADMIN BY HAYLEY LINDA HEPARIN FLUSH ADMIN BY HAYLEY LINDA
== END | disposition home or self-care (01) ==
LOC: CHF HDHVI 08:55
PROVIDERS: ATTEND Internal Medicine Cardiovascular Disease
DX: I13.0 Hypertensive heart and chronic kidney disease with heart failure and stage 1 through stage 4 chronic kidney disease, or unspecified chronic kidney disease (principal); I50.23 Acute on chronic systolic (congestive) heart failure; N18.30 Chronic kidney disease, stage 3 unspecified; I42.8 Other cardiomyopathies; I48.91 Unspecified atrial fibrillation; R53.83 Other fatigue; I25.10 Atherosclerotic heart disease of native coronary artery without angina pectoris; J44.9 Chronic obstructive pulmonary disease, unspecified; E78.5 Hyperlipidemia, unspecified; G89.4 Chronic pain syndrome; E66.9 Obesity, unspecified; Z68.34 Body mass index [BMI] 34.0-34.9, adult; Z95.810 Presence of automatic (implantable) cardiac defibrillator; Z95.5 Presence of coronary angioplasty implant and graft; Z79.01 Long term (current) use of anticoagulants; Z79.02 Long term (current) use of antithrombotics/antiplatelets
CPT/HCPCS: 96365; 96366; G0463; J1642; J2260

== ENCOUNTER → 2020-09-05 | Outpatient (CLI) | payer MEDICARE, MEDICAID ==
[2020-09-05] VITALS (11 sets, daily range): BP systolic 108–147; BP diastolic 51–90
--- NOTE | 2020-09-05 08:52 | NUR ---
CLINIC PT ARRIVED TO THE CHF CLINIC FOR SCHEDULED WEEKLY CHF EVAL AND TX, A/OX4, AMBULATORY, BREATHING IS EVEN AND UNLABORED. PT HAS A 3LB WT INCREASE SINCE LAST VISIT ON 08/31/20
--- NOTE | 2020-09-05 08:55 | NUR ---
MILRINONE IV STARTED @ 0.375 MCG/KG/MIN PER MD ORDERS, VSS, WILL CONTINUE TO MONITOR.
--- NOTE | 2020-09-05 11:06 | NUR ---
PT RESTING IN CHAIR, TOLERATING MILRINONE, PORT SITE BENIGN, VSS, WILL CONTINUE TO MONITOR.
[2020-09-05 12:14] LABS: Potassium 4.1 mmol/L (3.5-5.1)
--- NOTE | 2020-09-05 13:22 | NUR ---
Discharge Instructions See e-MAR for any mediations given with this visit. Patient education given on disease process. Patient verbalized understanding. Previous labs reviewed. Patient discharged in stable condition with after care instructions and follow up appointment ON . NOTE MILRINONE IV [id number] ADMIN BY MADDI HARDY HEPARIN IVP ADMIN BY AXEL HARDY
== END | disposition home or self-care (01) ==
LOC: CHF HDHVI 09:08
PROVIDERS: ATTEND Internal Medicine Cardiovascular Disease
DX: I13.0 Hypertensive heart and chronic kidney disease with heart failure and stage 1 through stage 4 chronic kidney disease, or unspecified chronic kidney disease (principal); E11.22 Type 2 diabetes mellitus with diabetic chronic kidney disease; I50.23 Acute on chronic systolic (congestive) heart failure; N18.30 Chronic kidney disease, stage 3 unspecified; I25.10 Atherosclerotic heart disease of native coronary artery without angina pectoris; J44.9 Chronic obstructive pulmonary disease, unspecified; E78.5 Hyperlipidemia, unspecified; I48.91 Unspecified atrial fibrillation; F41.9 Anxiety disorder, unspecified; E11.51 Type 2 diabetes mellitus with diabetic peripheral angiopathy without gangrene; Z79.01 Long term (current) use of anticoagulants; Z79.899 Other long term (current) drug therapy; Z95.810 Presence of automatic (implantable) cardiac defibrillator; Z86.73 Personal history of transient ischemic attack (TIA), and cerebral infarction without residual deficits
CPT/HCPCS: 36415; 82565; 83880; 84132; 84520; 96365; 96366; G0463; J1642; J2260

== ENCOUNTER → 2020-09-12 | Outpatient (CLI) | payer MEDICARE, MEDICAID ==
[2020-09-12] VITALS (12 sets, daily range): BP systolic 104–145; BP diastolic 64–84
[~2020-09-12] MED LIST changes: +MILRINONE 20MG/100ML 100 ML IV SCH
--- NOTE | 2020-09-12 08:46 | NUR ---
PT ARRIVED TO CHF CLINIC FOR SCHEDULED WEEKLY CHF EVAL & TX. PT AMBULATING, A/O X 4.
--- NOTE | 2020-09-12 09:05 | NUR ---
Colt Cath Insertion 20 gauge Colt Cath inserted using sterile technique in the RIGHT upper chest with occlusive dressing over quarles needle. Patient tolerated procedure well. Ordered labs drawn and sent. See e-MAR for medications given during this visit. COLT CATH ACCESSED BY YULY HARDY.
--- NOTE | 2020-09-12 09:11 | NUR ---
MILRINONE INFUSION AT 0.375 MCG/KG/MIN INFUSION STARTED PER MD ORDERS.
--- NOTE | 2020-09-12 10:35 | NUR ---
PT TOLERATING MILRINONE. COLT CATH SITE BENIGN. VSS, WILL CONTINUE TO MONITOR.
--- NOTE | 2020-09-12 11:50 | NUR ---
PT RESTING IN CHAIR. VSS, WILL CONTINUE TO MONITOR.
[2020-09-12 12:02] LABS: Basophils # (auto) 0 10 ^3/uL (0-0.2); Eosinophils # (auto) 0.1 10 ^3/uL (0-0.8); Hemoglobin 13.5 g/dL (13.5-17.5); Lymphocytes # (auto) 1.3 10 ^3/uL (0.4-5.4); Nucleated Red Blood Cells % 0.2 %; Platelet Count (auto) 224 10^3/uL (140-450)
[2020-09-12 12:04] LABS: Basophils % (auto) 0.7 % (0.0-2.0); Eosinophils % (auto) 2.1 % (0.0-7.0); Hematocrit 42.5 % (41.0-53.0); Lymphocytes % (auto) 22.1 % (10.0-50.0); Mean Corpuscular Hemoglobin 24.8 pg (28.0-32.0); Mean Corpuscular Hgb Conc. 31.8 g/dL (32.0-36.0); Monocytes # (auto) 0.7 10 ^3/uL (0-1.3); Neutrophils # (auto) 3.9 10 ^3/uL (1.6-8.6); Neutrophils % (auto) 64.1 % (37.0-80.0); Red Blood Cells 5.45 10^6/uL (4.5-5.90)
[2020-09-12 12:13] LABS: Red Cell Distribution Width 21.7 % (11.8-14.3)
[2020-09-12 12:15] LABS: Magnesium 2.2 mg/dL (1.6-2.6); Potassium 3.7 mmol/L (3.5-5.1)
--- NOTE | 2020-09-12 13:40 | NUR ---
Discharge Instructions See e-MAR for any mediations given with this visit. Patient education given on disease process. Patient verbalized understanding. Previous labs reviewed. Patient discharged in stable condition with after care instructions and follow up appointment ON 09/21/20. PT STATES HE WILL BE OUT OF TOWN FROM 09/16/20-09/20/20 WITH FAMILY. NOTE: MILRINONE INFUSION STARTED AT 0911, INFUSION ENDED AT 1315.
== END | disposition home or self-care (01) ==
LOC: CHF HDHVI 09:11
PROVIDERS: ATTEND Internal Medicine Cardiovascular Disease
DX: I13.0 Hypertensive heart and chronic kidney disease with heart failure and stage 1 through stage 4 chronic kidney disease, or unspecified chronic kidney disease (principal); E11.22 Type 2 diabetes mellitus with diabetic chronic kidney disease; N18.30 Chronic kidney disease, stage 3 unspecified; I50.23 Acute on chronic systolic (congestive) heart failure; D64.9 Anemia, unspecified; E83.40 Disorders of magnesium metabolism, unspecified; I25.10 Atherosclerotic heart disease of native coronary artery without angina pectoris; I73.9 Peripheral vascular disease, unspecified; I42.8 Other cardiomyopathies; I48.91 Unspecified atrial fibrillation; F41.9 Anxiety disorder, unspecified; J44.9 Chronic obstructive pulmonary disease, unspecified; E78.5 Hyperlipidemia, unspecified; E11.51 Type 2 diabetes mellitus with diabetic peripheral angiopathy without gangrene; G89.4 Chronic pain syndrome; E66.01 Morbid (severe) obesity due to excess calories; Z68.34 Body mass index [BMI] 34.0-34.9, adult; Z79.02 Long term (current) use of antithrombotics/antiplatelets; Z95.5 Presence of coronary angioplasty implant and graft; Z95.1 Presence of aortocoronary bypass graft; Z79.01 Long term (current) use of anticoagulants; Z79.899 Other long term (current) drug therapy; Z95.810 Presence of automatic (implantable) cardiac defibrillator; Z86.73 Personal history of transient ischemic attack (TIA), and cerebral infarction without residual deficits
CPT/HCPCS: 36415; 82565; 83735; 83880; 84132; 84520; 85025; 96365; 96366; G0463; J1642; J2260

== ENCOUNTER → 2020-09-14 | Outpatient (CLI) | payer MEDICARE, MEDICAID ==
[2020-09-14] VITALS (11 sets, daily range): BP systolic 114–137; BP diastolic 57–81
[~2020-09-14] MED LIST changes: -MILRINONE 20MG/100ML 100 ML IV SCH
--- NOTE | 2020-09-14 08:45 | NUR ---
PT ARRIVED TO CHF CLINIC FOR EVAL & TX. PT AMBULATING AND A/O X 4.
--- NOTE | 2020-09-14 08:56 | NUR ---
Mary Jane Cath Insertion 20 gauge Mary Jane Cath inserted using sterile technique in the RIGHT upper chest with occlusive dressing over quarles needle. Patient tolerated procedure well. See e-MAR for medications given during this visit. NOTE: PORT ACCESSED BY HAYLEY CARROLL.
--- NOTE | 2020-09-14 09:00 | NUR ---
STARTED MILRINONE IV AT 0.375 MCG/KG/HR. VSS, WILL CONTINUE TO MONITOR.
--- NOTE | 2020-09-14 10:30 | NUR ---
PT SITTING IN CHAIR COMFORTABLY, VSS, COLT CATH BENIGN AND WILL CONTINUE TO MONITOR.
--- NOTE | 2020-09-14 13:03 | NUR ---
Mary Jane Cath Removal Horowitz needle D/C'd after Heparin flush per protocol. See e-MAR for medications given during this visit. Sterile occlusive dressing to site. Patient tolerated procedure well. Site benign post infusion. NOTE: MILRINONE IV [id number] ADMIN BY HAYLEY RENTERIA HEPARIN IVP ADMIN BY HAYLEY CARROLL
--- NOTE | 2020-09-14 13:10 | NUR ---
Discharge Instructions See e-MAR for any mediations given with this visit. Patient education given on disease process. Patient verbalized understanding. Previous labs reviewed. Patient discharged in stable condition with after care instructions and follow up appointment. NOTE: MILRINONE [id number] ADMIN BY HAYLEY RENTERIA HEPARIN IVP ADMIN BY HAYLEY CARROLL
== END | disposition home or self-care (01) ==
LOC: CHF HDHVI 08:54
PROVIDERS: ATTEND Internal Medicine Cardiovascular Disease
DX: I13.0 Hypertensive heart and chronic kidney disease with heart failure and stage 1 through stage 4 chronic kidney disease, or unspecified chronic kidney disease (principal); E11.22 Type 2 diabetes mellitus with diabetic chronic kidney disease; N18.30 Chronic kidney disease, stage 3 unspecified; I50.23 Acute on chronic systolic (congestive) heart failure; I42.8 Other cardiomyopathies; I25.10 Atherosclerotic heart disease of native coronary artery without angina pectoris; I48.91 Unspecified atrial fibrillation; I73.9 Peripheral vascular disease, unspecified; F41.9 Anxiety disorder, unspecified; J44.9 Chronic obstructive pulmonary disease, unspecified; G89.4 Chronic pain syndrome; E78.5 Hyperlipidemia, unspecified; E11.51 Type 2 diabetes mellitus with diabetic peripheral angiopathy without gangrene; E66.01 Morbid (severe) obesity due to excess calories; Z68.34 Body mass index [BMI] 34.0-34.9, adult; Z79.01 Long term (current) use of anticoagulants; Z79.02 Long term (current) use of antithrombotics/antiplatelets; Z79.899 Other long term (current) drug therapy; Z95.1 Presence of aortocoronary bypass graft; Z95.810 Presence of automatic (implantable) cardiac defibrillator; Z95.5 Presence of coronary angioplasty implant and graft; Z86.73 Personal history of transient ischemic attack (TIA), and cerebral infarction without residual deficits
CPT/HCPCS: 96365; 96366; G0463; J1642; J2260

== ENCOUNTER → 2020-09-26 | Outpatient (CLI) | payer MEDICARE, MEDICAID ==
[2020-09-26] VITALS (9 sets, daily range): BP systolic 109–154; BP diastolic 68–89
[~2020-09-26] MED LIST changes: +CYANOCOBALAMIN (B-12) 1000 MCG/1 ML VIAL IM ONE; +CYANOCOBALAMIN (B-12) 1000 MCG/1 ML VIAL ONE; +FUROSEMIDE 20 MG/2 ML VIAL IV ONE; +FUROSEMIDE 20 MG/2 ML VIAL ONE; +FUROSEMIDE 40 MG/4 ML VIAL ONE; +POTASSIUM CHL 10 Meq TABLET PO ONE
[2020-09-26 12:00] LABS: Basophils # (auto) 0 10 ^3/uL (0-0.2); Eosinophils # (auto) 0.1 10 ^3/uL (0-0.8); Monocytes # (auto) 0.5 10 ^3/uL (0-1.3); Monocytes % (auto) 7.2 % (0.0-12.0)
[2020-09-26 12:05] LABS: Basophils % (auto) 0.4 % (0.0-2.0); Eosinophils % (auto) 1.5 % (0.0-7.0); Hematocrit 39.3 % (41.0-53.0); Hemoglobin 12.7 g/dL (13.5-17.5); Lymphocytes % (auto) 14.5 % (10.0-50.0); Mean Corpuscular Hgb Conc. 32.2 g/dL (32.0-36.0); Mean Corpuscular Volume 77.6 fL (80.0-100.0); Neutrophils # (auto) 5.4 10 ^3/uL (1.6-8.6); Neutrophils % (auto) 76.4 % (37.0-80.0); Nucleated Red Blood Cells % 0.2 %; Platelet Count (auto) 248 10^3/uL (140-450); Red Blood Cells 5.07 10^6/uL (4.5-5.90)
[2020-09-26 12:16] LABS: Potassium 3.8 mmol/L (3.5-5.1)
[2020-09-26 12:27] LABS: Red Cell Distribution Width 20.7 % (11.8-14.3)
[2020-09-26 12:35] LABS: BUN/Creatinine Ratio 14.4; Calcium 8.8 mg/dL (8.5-10.1)
== END | disposition home or self-care (01) ==
LOC: CHF HDHVI 09:37
PROVIDERS: ATTEND Internal Medicine Cardiovascular Disease
DX: I13.0 Hypertensive heart and chronic kidney disease with heart failure and stage 1 through stage 4 chronic kidney disease, or unspecified chronic kidney disease (principal); E11.22 Type 2 diabetes mellitus with diabetic chronic kidney disease; N18.30 Chronic kidney disease, stage 3 unspecified; I50.23 Acute on chronic systolic (congestive) heart failure; I25.10 Atherosclerotic heart disease of native coronary artery without angina pectoris; I73.9 Peripheral vascular disease, unspecified; I42.8 Other cardiomyopathies; I48.91 Unspecified atrial fibrillation; D64.9 Anemia, unspecified; E03.9 Hypothyroidism, unspecified; R53.83 Other fatigue; F41.9 Anxiety disorder, unspecified; J44.9 Chronic obstructive pulmonary disease, unspecified; G89.4 Chronic pain syndrome; E78.5 Hyperlipidemia, unspecified; E11.51 Type 2 diabetes mellitus with diabetic peripheral angiopathy without gangrene; E66.01 Morbid (severe) obesity due to excess calories; Z68.34 Body mass index [BMI] 34.0-34.9, adult; Z79.01 Long term (current) use of anticoagulants; Z79.899 Other long term (current) drug therapy; Z95.1 Presence of aortocoronary bypass graft; Z95.810 Presence of automatic (implantable) cardiac defibrillator; Z95.5 Presence of coronary angioplasty implant and graft; Z86.73 Personal history of transient ischemic attack (TIA), and cerebral infarction without residual deficits; Z79.02 Long term (current) use of antithrombotics/antiplatelets
CPT/HCPCS: 36415; 80048; 83735; 83880; 84443; 85025; 96365; 96366; 96372; 96375; G0463; J1642; J1940; J2260; J3420; 96374

== ENCOUNTER → 2020-09-28 | Outpatient (CLI) | payer MEDICARE, MEDICAID ==
[2020-09-28] VITALS (11 sets, daily range): BP systolic 99–134; BP diastolic 57–81
[~2020-09-28] MED LIST changes: -CLOP75TA41 PO; +CLOP75TA70 PO; -CYANOCOBALAMIN (B-12) 1000 MCG/1 ML VIAL IM ONE; -CYANOCOBALAMIN (B-12) 1000 MCG/1 ML VIAL ONE; -FUROSEMIDE 20 MG/2 ML VIAL IV ONE; -FUROSEMIDE 20 MG/2 ML VIAL ONE; -FUROSEMIDE 40 MG/4 ML VIAL ONE; -POTASSIUM CHL 10 Meq TABLET PO ONE
== END | disposition home or self-care (01) ==
LOC: CHF HDHVI 09:03
PROVIDERS: ATTEND Internal Medicine Cardiovascular Disease
DX: I13.0 Hypertensive heart and chronic kidney disease with heart failure and stage 1 through stage 4 chronic kidney disease, or unspecified chronic kidney disease (principal); E11.22 Type 2 diabetes mellitus with diabetic chronic kidney disease; N18.30 Chronic kidney disease, stage 3 unspecified; I50.23 Acute on chronic systolic (congestive) heart failure; R53.83 Other fatigue; F41.9 Anxiety disorder, unspecified; I25.10 Atherosclerotic heart disease of native coronary artery without angina pectoris; I48.91 Unspecified atrial fibrillation; J44.9 Chronic obstructive pulmonary disease, unspecified; G89.4 Chronic pain syndrome; E78.5 Hyperlipidemia, unspecified; I42.8 Other cardiomyopathies; E11.51 Type 2 diabetes mellitus with diabetic peripheral angiopathy without gangrene; E66.01 Morbid (severe) obesity due to excess calories; Z68.34 Body mass index [BMI] 34.0-34.9, adult; Z79.899 Other long term (current) drug therapy; Z95.1 Presence of aortocoronary bypass graft; Z95.810 Presence of automatic (implantable) cardiac defibrillator; Z95.5 Presence of coronary angioplasty implant and graft; Z79.01 Long term (current) use of anticoagulants; Z79.02 Long term (current) use of antithrombotics/antiplatelets; Z86.73 Personal history of transient ischemic attack (TIA), and cerebral infarction without residual deficits
CPT/HCPCS: 96365; 96366; G0463; J1642; J2260

== ENCOUNTER → 2020-10-03 | Outpatient (CLI) | payer MEDICARE, MEDICAID ==
[2020-10-03] VITALS (9 sets, daily range): BP systolic 101–110; BP diastolic 50–69
[~2020-10-03] MED LIST changes: +CLOP75TA41 PO; -CLOP75TA70 PO
[2020-10-03 11:49] LABS: Basophils # (auto) 0 10 ^3/uL (0-0.2); Eosinophils # (auto) 0.1 10 ^3/uL (0-0.8); Nucleated Red Blood Cells % 0.1 %
[2020-10-03 11:51] LABS: Basophils % (auto) 0.3 % (0.0-2.0); Eosinophils % (auto) 1.3 % (0.0-7.0); Hemoglobin 13.7 g/dL (13.5-17.5); Lymphocytes # (auto) 1.2 10 ^3/uL (0.4-5.4); Lymphocytes % (auto) 19.2 % (10.0-50.0); Mean Corpuscular Hgb Conc. 31.9 g/dL (32.0-36.0); Mean Corpuscular Volume 78.2 fL (80.0-100.0); Monocytes # (auto) 0.6 10 ^3/uL (0-1.3); Monocytes % (auto) 9.6 % (0.0-12.0); Neutrophils # (auto) 4.3 10 ^3/uL (1.6-8.6); Neutrophils % (auto) 69.6 % (37.0-80.0); Platelet Count (auto) 262 10^3/uL (140-450); White Blood Cell 6.2 10^3/uL (4.4-10.8)
[2020-10-03 11:56] LABS: Potassium 3.8 mmol/L (3.5-5.1)
[2020-10-03 11:58] LABS: Red Cell Distribution Width 21.5 % (11.8-14.3)
[2020-10-03 12:10] LABS: BUN/Creatinine Ratio 16.9; Magnesium 2.6 mg/dL (1.6-2.6)
== END | disposition home or self-care (01) ==
LOC: CHF HDHVI 09:28
PROVIDERS: ATTEND Internal Medicine Cardiovascular Disease
DX: I13.0 Hypertensive heart and chronic kidney disease with heart failure and stage 1 through stage 4 chronic kidney disease, or unspecified chronic kidney disease (principal); E11.22 Type 2 diabetes mellitus with diabetic chronic kidney disease; N18.30 Chronic kidney disease, stage 3 unspecified; I50.23 Acute on chronic systolic (congestive) heart failure; D64.9 Anemia, unspecified; E83.40 Disorders of magnesium metabolism, unspecified; R53.83 Other fatigue; I25.10 Atherosclerotic heart disease of native coronary artery without angina pectoris; I48.91 Unspecified atrial fibrillation; I42.8 Other cardiomyopathies; I73.9 Peripheral vascular disease, unspecified; F41.9 Anxiety disorder, unspecified; J44.9 Chronic obstructive pulmonary disease, unspecified; G89.4 Chronic pain syndrome; E78.5 Hyperlipidemia, unspecified; E11.51 Type 2 diabetes mellitus with diabetic peripheral angiopathy without gangrene; E03.9 Hypothyroidism, unspecified; E66.01 Morbid (severe) obesity due to excess calories; Z68.34 Body mass index [BMI] 34.0-34.9, adult; Z79.899 Other long term (current) drug therapy; Z95.1 Presence of aortocoronary bypass graft; Z95.810 Presence of automatic (implantable) cardiac defibrillator; Z95.5 Presence of coronary angioplasty implant and graft; Z79.01 Long term (current) use of anticoagulants; Z79.02 Long term (current) use of antithrombotics/antiplatelets; Z86.73 Personal history of transient ischemic attack (TIA), and cerebral infarction without residual deficits
CPT/HCPCS: 36415; 80048; 83735; 83880; 85025; 96365; 96366; G0463; J1642; J2260

== ENCOUNTER → 2020-10-10 | Outpatient (CLI) | payer MEDICARE, MEDICAID ==
[2020-10-10] VITALS (11 sets, daily range): BP systolic 104–125; BP diastolic 43–81
[~2020-10-10] MED LIST changes: -CLOP75TA41 PO; +CLOP75TA70 PO
[2020-10-10 11:50] LABS: Potassium 4.1 mmol/L (3.5-5.1)
[2020-10-10 11:59] LABS: BUN/Creatinine Ratio 13.1; Calcium 8.3 mg/dL (8.5-10.1); Magnesium 2.6 mg/dL (1.6-2.6)
== END | disposition home or self-care (01) ==
LOC: CHF HDHVI 09:05
PROVIDERS: ATTEND Internal Medicine Cardiovascular Disease
DX: I13.0 Hypertensive heart and chronic kidney disease with heart failure and stage 1 through stage 4 chronic kidney disease, or unspecified chronic kidney disease (principal); E11.22 Type 2 diabetes mellitus with diabetic chronic kidney disease; N18.30 Chronic kidney disease, stage 3 unspecified; I50.23 Acute on chronic systolic (congestive) heart failure; R53.83 Other fatigue; I42.8 Other cardiomyopathies; F41.9 Anxiety disorder, unspecified; I25.10 Atherosclerotic heart disease of native coronary artery without angina pectoris; I48.91 Unspecified atrial fibrillation; I73.9 Peripheral vascular disease, unspecified; J44.9 Chronic obstructive pulmonary disease, unspecified; G89.4 Chronic pain syndrome; E78.5 Hyperlipidemia, unspecified; E03.9 Hypothyroidism, unspecified; E11.51 Type 2 diabetes mellitus with diabetic peripheral angiopathy without gangrene; E66.01 Morbid (severe) obesity due to excess calories; Z68.34 Body mass index [BMI] 34.0-34.9, adult; Z79.01 Long term (current) use of anticoagulants; Z79.899 Other long term (current) drug therapy; Z95.810 Presence of automatic (implantable) cardiac defibrillator; Z95.1 Presence of aortocoronary bypass graft; Z95.5 Presence of coronary angioplasty implant and graft; Z86.73 Personal history of transient ischemic attack (TIA), and cerebral infarction without residual deficits; Z79.02 Long term (current) use of antithrombotics/antiplatelets
CPT/HCPCS: 36415; 80048; 83735; 83880; 96365; 96366; G0463; J1642; J2260; 96360

== ENCOUNTER → 2020-10-12 | Outpatient (CLI) | payer MEDICARE, MEDICAID ==
[2020-10-12] VITALS (10 sets, daily range): BP systolic 95–127; BP diastolic 56–76
== END | disposition home or self-care (01) ==
LOC: CHF HDHVI 08:47
PROVIDERS: ATTEND Internal Medicine Cardiovascular Disease
DX: I13.0 Hypertensive heart and chronic kidney disease with heart failure and stage 1 through stage 4 chronic kidney disease, or unspecified chronic kidney disease (principal); E11.22 Type 2 diabetes mellitus with diabetic chronic kidney disease; N18.30 Chronic kidney disease, stage 3 unspecified; I50.23 Acute on chronic systolic (congestive) heart failure; R53.83 Other fatigue; F41.9 Anxiety disorder, unspecified; I25.10 Atherosclerotic heart disease of native coronary artery without angina pectoris; I73.9 Peripheral vascular disease, unspecified; I42.8 Other cardiomyopathies; J44.9 Chronic obstructive pulmonary disease, unspecified; G89.4 Chronic pain syndrome; E78.5 Hyperlipidemia, unspecified; E03.9 Hypothyroidism, unspecified; E11.51 Type 2 diabetes mellitus with diabetic peripheral angiopathy without gangrene; E66.01 Morbid (severe) obesity due to excess calories; Z79.01 Long term (current) use of anticoagulants; Z79.02 Long term (current) use of antithrombotics/antiplatelets; Z79.899 Other long term (current) drug therapy; Z95.1 Presence of aortocoronary bypass graft; Z95.810 Presence of automatic (implantable) cardiac defibrillator; Z95.5 Presence of coronary angioplasty implant and graft; Z86.73 Personal history of transient ischemic attack (TIA), and cerebral infarction without residual deficits; Z68.34 Body mass index [BMI] 34.0-34.9, adult
CPT/HCPCS: 96365; 96366; G0463; J1642; J2260

== ENCOUNTER → 2020-10-17 | Outpatient (CLI) | payer MEDICARE, MEDICAID ==
[2020-10-17] VITALS (11 sets, daily range): BP systolic 104–131; BP diastolic 53–85
[2020-10-17 09:44] LABS: Basophils # (auto) 0 10 ^3/uL (0-0.2); Basophils % (auto) 0.6 % (0.0-2.0); Eosinophils # (auto) 0.1 10 ^3/uL (0-0.8); Eosinophils % (auto) 1.6 % (0.0-7.0); Hemoglobin 13.5 g/dL (13.5-17.5); Lymphocytes # (auto) 1.1 10 ^3/uL (0.4-5.4); Mean Corpuscular Hemoglobin 24.1 pg (28.0-32.0); Mean Corpuscular Hgb Conc. 31.3 g/dL (32.0-36.0); Mean Corpuscular Volume 76.9 fL (80.0-100.0); Monocytes # (auto) 0.6 10 ^3/uL (0-1.3); Monocytes % (auto) 9.8 % (0.0-12.0); Neutrophils # (auto) 4.1 10 ^3/uL (1.6-8.6); Nucleated Red Blood Cells % 0.1 %; Red Blood Cells 5.59 10^6/uL (4.5-5.90); Red Cell Distribution Width 20.9 % (11.8-14.3); White Blood Cell 5.9 10^3/uL (4.4-10.8)
[2020-10-17 10:10] LABS: BUN/Creatinine Ratio 17.4; Calcium 9.2 mg/dL (8.5-10.1)
[2020-10-17 11:30] LABS: Magnesium 2.2 mg/dL (1.6-2.6)
== END | disposition home or self-care (01) ==
LOC: CHF HDHVI 09:20
PROVIDERS: ATTEND Internal Medicine Cardiovascular Disease
DX: I13.0 Hypertensive heart and chronic kidney disease with heart failure and stage 1 through stage 4 chronic kidney disease, or unspecified chronic kidney disease (principal); E11.22 Type 2 diabetes mellitus with diabetic chronic kidney disease; I50.23 Acute on chronic systolic (congestive) heart failure; N18.30 Chronic kidney disease, stage 3 unspecified; I25.10 Atherosclerotic heart disease of native coronary artery without angina pectoris; I48.91 Unspecified atrial fibrillation; I42.8 Other cardiomyopathies; J44.9 Chronic obstructive pulmonary disease, unspecified; E11.51 Type 2 diabetes mellitus with diabetic peripheral angiopathy without gangrene; E78.5 Hyperlipidemia, unspecified; E03.9 Hypothyroidism, unspecified; F41.9 Anxiety disorder, unspecified; G89.29 Other chronic pain; E66.01 Morbid (severe) obesity due to excess calories; Z68.34 Body mass index [BMI] 34.0-34.9, adult; Z79.01 Long term (current) use of anticoagulants; Z79.02 Long term (current) use of antithrombotics/antiplatelets; Z79.899 Other long term (current) drug therapy; Z95.5 Presence of coronary angioplasty implant and graft; Z95.810 Presence of automatic (implantable) cardiac defibrillator; Z86.73 Personal history of transient ischemic attack (TIA), and cerebral infarction without residual deficits
CPT/HCPCS: 36415; 80048; 83735; 83880; 85025; 96365; 96366; G0463; J1642; J2260

== ENCOUNTER → 2020-10-19 | Outpatient (CLI) | payer MEDICARE, MEDICAID ==
[~2020-10-19] VITALS: Ht 30.5 cm; Wt 128.5 kg
[2020-10-19] VITALS (11 sets, daily range): BP systolic 95–128; BP diastolic 47–80
== END | disposition home or self-care (01) ==
LOC: CHF HDHVI 09:08
PROVIDERS: ATTEND Internal Medicine Cardiovascular Disease
DX: I13.0 Hypertensive heart and chronic kidney disease with heart failure and stage 1 through stage 4 chronic kidney disease, or unspecified chronic kidney disease (principal); E11.22 Type 2 diabetes mellitus with diabetic chronic kidney disease; N18.30 Chronic kidney disease, stage 3 unspecified; I50.23 Acute on chronic systolic (congestive) heart failure; R53.83 Other fatigue; I25.10 Atherosclerotic heart disease of native coronary artery without angina pectoris; I48.91 Unspecified atrial fibrillation; I42.8 Other cardiomyopathies; I73.9 Peripheral vascular disease, unspecified; E78.5 Hyperlipidemia, unspecified; J44.9 Chronic obstructive pulmonary disease, unspecified; E03.9 Hypothyroidism, unspecified; G89.4 Chronic pain syndrome; E66.01 Morbid (severe) obesity due to excess calories; Z68.34 Body mass index [BMI] 34.0-34.9, adult; Z95.1 Presence of aortocoronary bypass graft; Z79.899 Other long term (current) drug therapy; Z95.810 Presence of automatic (implantable) cardiac defibrillator; Z95.5 Presence of coronary angioplasty implant and graft; Z79.02 Long term (current) use of antithrombotics/antiplatelets; Z86.73 Personal history of transient ischemic attack (TIA), and cerebral infarction without residual deficits
CPT/HCPCS: 96365; 96366; G0463; J1642; J2260

== ENCOUNTER → 2020-10-24 | Outpatient (CLI) | payer MEDICARE, MEDICAID ==
[2020-10-24] VITALS (11 sets, daily range): BP systolic 98–115; BP diastolic 42–70
[~2020-10-24] MED LIST changes: +CYANOCOBALAMIN (B-12) 1000 MCG/1 ML VIAL IM ONE; +CYANOCOBALAMIN (B-12) 1000 MCG/1 ML VIAL ONE
[2020-10-24 12:06] LABS: BUN/Creatinine Ratio 21.6; Calcium 8.8 mg/dL (8.5-10.1); Magnesium 2.5 mg/dL (1.6-2.6)
== END | disposition home or self-care (01) ==
LOC: CHF HDHVI 09:22
PROVIDERS: ATTEND Internal Medicine Cardiovascular Disease
DX: I13.0 Hypertensive heart and chronic kidney disease with heart failure and stage 1 through stage 4 chronic kidney disease, or unspecified chronic kidney disease (principal); E11.22 Type 2 diabetes mellitus with diabetic chronic kidney disease; N18.30 Chronic kidney disease, stage 3 unspecified; I50.23 Acute on chronic systolic (congestive) heart failure; R53.83 Other fatigue; I25.10 Atherosclerotic heart disease of native coronary artery without angina pectoris; I42.8 Other cardiomyopathies; I73.9 Peripheral vascular disease, unspecified; I48.91 Unspecified atrial fibrillation; J44.9 Chronic obstructive pulmonary disease, unspecified; G89.4 Chronic pain syndrome; E78.5 Hyperlipidemia, unspecified; E03.9 Hypothyroidism, unspecified; E11.51 Type 2 diabetes mellitus with diabetic peripheral angiopathy without gangrene; E66.01 Morbid (severe) obesity due to excess calories; Z68.34 Body mass index [BMI] 34.0-34.9, adult; Z95.1 Presence of aortocoronary bypass graft; Z95.810 Presence of automatic (implantable) cardiac defibrillator; Z79.02 Long term (current) use of antithrombotics/antiplatelets; Z79.01 Long term (current) use of anticoagulants; Z79.899 Other long term (current) drug therapy; Z95.5 Presence of coronary angioplasty implant and graft; Z86.73 Personal history of transient ischemic attack (TIA), and cerebral infarction without residual deficits
CPT/HCPCS: 36415; 80048; 83735; 83880; 96365; 96366; 96372; G0463; J1642; J2260; J3420

== ENCOUNTER → 2020-10-26 | Outpatient (CLI) | payer MEDICARE, MEDICAID ==
[2020-10-26] VITALS (11 sets, daily range): BP systolic 90–115; BP diastolic 56–80
[~2020-10-26] VITALS: Ht 33 cm; Wt 128.5 kg
[~2020-10-26] MED LIST changes: +ACETAMINOPHEN 500 MG TAB PO ONE; -CYANOCOBALAMIN (B-12) 1000 MCG/1 ML VIAL IM ONE; -CYANOCOBALAMIN (B-12) 1000 MCG/1 ML VIAL ONE
== END | disposition home or self-care (01) ==
LOC: CHF HDHVI 09:18
PROVIDERS: ATTEND Internal Medicine Cardiovascular Disease
DX: I13.2 Hypertensive heart and chronic kidney disease with heart failure and with stage 5 chronic kidney disease, or end stage renal disease (principal); E11.22 Type 2 diabetes mellitus with diabetic chronic kidney disease; N18.30 Chronic kidney disease, stage 3 unspecified; I50.23 Acute on chronic systolic (congestive) heart failure; I25.10 Atherosclerotic heart disease of native coronary artery without angina pectoris; I48.91 Unspecified atrial fibrillation; I42.8 Other cardiomyopathies; I73.9 Peripheral vascular disease, unspecified; R53.83 Other fatigue; J44.9 Chronic obstructive pulmonary disease, unspecified; G89.4 Chronic pain syndrome; E78.5 Hyperlipidemia, unspecified; E03.9 Hypothyroidism, unspecified; E11.51 Type 2 diabetes mellitus with diabetic peripheral angiopathy without gangrene; F41.9 Anxiety disorder, unspecified; E66.01 Morbid (severe) obesity due to excess calories; Z68.34 Body mass index [BMI] 34.0-34.9, adult; Z79.899 Other long term (current) drug therapy; Z79.01 Long term (current) use of anticoagulants; Z79.02 Long term (current) use of antithrombotics/antiplatelets; Z95.810 Presence of automatic (implantable) cardiac defibrillator; Z86.73 Personal history of transient ischemic attack (TIA), and cerebral infarction without residual deficits
CPT/HCPCS: 96365; 96366; G0463; J1642; J2260

== ENCOUNTER → 2020-11-02 | Outpatient (CLI) | payer MEDICARE, MEDICAID ==
[~2020-11-02] VITALS: Ht 30.5 cm; Wt 128.9 kg
[2020-11-02] VITALS (12 sets, daily range): BP systolic 96–146; BP diastolic 53–80
[~2020-11-02] MED LIST changes: -ACETAMINOPHEN 500 MG TAB PO ONE
[2020-11-02 11:55] LABS: Basophils # (auto) 0 10 ^3/uL (0-0.2); Calcium 8.8 mg/dL (8.5-10.1); Eosinophils # (auto) 0.1 10 ^3/uL (0-0.8); Hemoglobin 13.9 g/dL (13.5-17.5); Magnesium 2.4 mg/dL (1.6-2.6); Monocytes # (auto) 0.8 10 ^3/uL (0-1.3); Potassium 3.9 mmol/L (3.5-5.1)
[2020-11-02 11:59] LABS: BUN/Creatinine Ratio 16.7
[2020-11-02 12:00] LABS: Basophils % (auto) 0.5 % (0.0-2.0); Eosinophils % (auto) 1.4 % (0.0-7.0); Hematocrit 43.2 % (41.0-53.0); Lymphocytes # (auto) 1.4 10 ^3/uL (0.4-5.4); Lymphocytes % (auto) 21.6 % (10.0-50.0); Mean Corpuscular Hemoglobin 24.7 pg (28.0-32.0); Mean Corpuscular Hgb Conc. 32.1 g/dL (32.0-36.0); Mean Corpuscular Volume 76.9 fL (80.0-100.0); Monocytes % (auto) 12.4 % (0.0-12.0); Neutrophils # (auto) 4.1 10 ^3/uL (1.6-8.6); Neutrophils % (auto) 64.1 % (37.0-80.0); Nucleated Red Blood Cells % 0.2 %; Platelet Count (auto) 248 10^3/uL (140-450); Red Blood Cells 5.61 10^6/uL (4.5-5.90); Red Cell Distribution Width 20.5 % (11.8-14.3); White Blood Cell 6.4 10^3/uL (4.4-10.8)
== END | disposition home or self-care (01) ==
LOC: CHF HDHVI 08:57
PROVIDERS: ATTEND Internal Medicine Cardiovascular Disease
DX: I13.0 Hypertensive heart and chronic kidney disease with heart failure and stage 1 through stage 4 chronic kidney disease, or unspecified chronic kidney disease (principal); E11.22 Type 2 diabetes mellitus with diabetic chronic kidney disease; I50.23 Acute on chronic systolic (congestive) heart failure; N18.30 Chronic kidney disease, stage 3 unspecified; F41.9 Anxiety disorder, unspecified; I25.10 Atherosclerotic heart disease of native coronary artery without angina pectoris; J44.9 Chronic obstructive pulmonary disease, unspecified; E78.5 Hyperlipidemia, unspecified; E11.51 Type 2 diabetes mellitus with diabetic peripheral angiopathy without gangrene; E03.9 Hypothyroidism, unspecified; Z79.01 Long term (current) use of anticoagulants; Z79.899 Other long term (current) drug therapy; Z86.73 Personal history of transient ischemic attack (TIA), and cerebral infarction without residual deficits; Z95.810 Presence of automatic (implantable) cardiac defibrillator
CPT/HCPCS: 36415; 80048; 83735; 83880; 85025; 96365; 96366; G0463; J1642; J2260

== ENCOUNTER → 2020-11-14 | Outpatient (CLI) | payer MEDICARE, MEDICAID ==
[2020-11-14] VITALS (12 sets, daily range): BP systolic 91–108; BP diastolic 46–81
[2020-11-14 11:34] LABS: Eosinophils # (auto) 0.1 10 ^3/uL (0-0.8); Nucleated Red Blood Cells % 0.1 %; Red Blood Cells 5.67 10^6/uL (4.5-5.90); White Blood Cell 8.7 10^3/uL (4.4-10.8)
[2020-11-14 11:37] LABS: Basophils # (auto) 0.1 10 ^3/uL (0-0.2); Basophils % (auto) 0.6 % (0.0-2.0); Eosinophils % (auto) 0.7 % (0.0-7.0); Hematocrit 43.3 % (41.0-53.0); Hemoglobin 14.2 g/dL (13.5-17.5); Lymphocytes # (auto) 1.4 10 ^3/uL (0.4-5.4); Lymphocytes % (auto) 15.5 % (10.0-50.0); Magnesium 2.3 mg/dL (1.6-2.6); Mean Corpuscular Hgb Conc. 32.7 g/dL (32.0-36.0); Mean Corpuscular Volume 76.5 fL (80.0-100.0); Monocytes % (auto) 11.9 % (0.0-12.0); Neutrophils # (auto) 6.2 10 ^3/uL (1.6-8.6); Neutrophils % (auto) 71.3 % (37.0-80.0); Platelet Count (auto) 257 10^3/uL (140-450)
[2020-11-14 11:39] LABS: BUN/Creatinine Ratio 22.3; Red Cell Distribution Width 20.4 % (11.8-14.3)
[2020-11-14 14:27] LABS: Potassium 2.8 mmol/L (3.5-5.1)
== END | disposition home or self-care (01) ==
LOC: CHF HDHVI 09:28
PROVIDERS: ATTEND Internal Medicine Cardiovascular Disease
DX: I13.0 Hypertensive heart and chronic kidney disease with heart failure and stage 1 through stage 4 chronic kidney disease, or unspecified chronic kidney disease (principal); E11.22 Type 2 diabetes mellitus with diabetic chronic kidney disease; I50.42 Chronic combined systolic (congestive) and diastolic (congestive) heart failure; N18.30 Chronic kidney disease, stage 3 unspecified; I25.10 Atherosclerotic heart disease of native coronary artery without angina pectoris; I42.8 Other cardiomyopathies; I48.91 Unspecified atrial fibrillation; J44.9 Chronic obstructive pulmonary disease, unspecified; E11.51 Type 2 diabetes mellitus with diabetic peripheral angiopathy without gangrene; E78.5 Hyperlipidemia, unspecified; E03.9 Hypothyroidism, unspecified; R53.83 Other fatigue; F41.9 Anxiety disorder, unspecified; E66.01 Morbid (severe) obesity due to excess calories; Z68.34 Body mass index [BMI] 34.0-34.9, adult; Z95.810 Presence of automatic (implantable) cardiac defibrillator; Z95.5 Presence of coronary angioplasty implant and graft; Z87.891 Personal history of nicotine dependence; Z86.73 Personal history of transient ischemic attack (TIA), and cerebral infarction without residual deficits
CPT/HCPCS: 36415; 80048; 83735; 85025; 94618; 96365; 96366; G0463; J1642; J2260

== ENCOUNTER → 2020-11-16 | Outpatient (CLI) | payer MEDICARE, MEDICAID ==
[2020-11-16] VITALS (8 sets, daily range): BP systolic 97–136; BP diastolic 44–76
[~2020-11-16] MED LIST changes: -MILRINONE 20MG/100ML 100 ML IV ONE
[2020-11-16] MEDS: MILRINONE 20MG/100ML 100 ML IV ONE ×2 (09:17→10:23)
[2020-11-16 10:31] LABS: Potassium 3.1 mmol/L (3.5-5.1)
[2020-11-16] MEDS: FUROSEMIDE 20 MG/2 ML VIAL IV ONE (11:10)
[2020-11-16] MEDS: POTASSIUM EFFERVESENT TAB 25 MEQ PO ONE (11:17)
[2020-11-16] MEDS: FUROSEMIDE 20 MG/2 ML VIAL ONE (11:45)
[2020-11-16] MEDS: FUROSEMIDE 40 MG/4 ML VIAL ONE (11:46)
[2020-11-16] MEDS: POTASSIUM EFFERVESENT TAB 25 MEQ ONE (11:47)
== END | disposition home or self-care (01) ==
LOC: CHF HDHVI 09:03
PROVIDERS: ATTEND Internal Medicine Cardiovascular Disease
DX: I13.0 Hypertensive heart and chronic kidney disease with heart failure and stage 1 through stage 4 chronic kidney disease, or unspecified chronic kidney disease (principal); E11.22 Type 2 diabetes mellitus with diabetic chronic kidney disease; I50.23 Acute on chronic systolic (congestive) heart failure; N18.30 Chronic kidney disease, stage 3 unspecified; I42.8 Other cardiomyopathies; E87.6 Hypokalemia; R53.83 Other fatigue; I25.10 Atherosclerotic heart disease of native coronary artery without angina pectoris; I48.91 Unspecified atrial fibrillation; J44.9 Chronic obstructive pulmonary disease, unspecified; E11.51 Type 2 diabetes mellitus with diabetic peripheral angiopathy without gangrene; E78.5 Hyperlipidemia, unspecified; E03.9 Hypothyroidism, unspecified; F41.9 Anxiety disorder, unspecified; G89.4 Chronic pain syndrome; E66.01 Morbid (severe) obesity due to excess calories; Z68.34 Body mass index [BMI] 34.0-34.9, adult; Z79.01 Long term (current) use of anticoagulants; Z79.899 Other long term (current) drug therapy; Z95.810 Presence of automatic (implantable) cardiac defibrillator; Z86.73 Personal history of transient ischemic attack (TIA), and cerebral infarction without residual deficits; Z95.5 Presence of coronary angioplasty implant and graft
CPT/HCPCS: 36415; 82565; 83880; 84132; 84520; 96365; 96366; 96375; G0463; J1642; J1940; J2260

== ENCOUNTER → 2020-11-21 | Outpatient (CLI) | payer MEDICARE, MEDICAID ==
[2020-11-21] VITALS (11 sets, daily range): BP systolic 72–121; BP diastolic 38–61
[~2020-11-21] MED LIST changes: +MAGNESIUM SULFATE 1GM/100ML 300 ML IV ONE; +MILRINONE 20MG/100ML 100 ML IV ONE
[2020-11-21 11:40] LABS: Basophils # (auto) 0 10 ^3/uL (0-0.2); Eosinophils # (auto) 0 10 ^3/uL (0-0.8); Lymphocytes # (auto) 1.1 10 ^3/uL (0.4-5.4); Neutrophils # (auto) 5.7 10 ^3/uL (1.6-8.6); Nucleated Red Blood Cells % 0.1 %
[2020-11-21 11:43] LABS: Basophils % (auto) 0.5 % (0.0-2.0); Eosinophils % (auto) 0.6 % (0.0-7.0); Hematocrit 41.8 % (41.0-53.0); Hemoglobin 13.7 g/dL (13.5-17.5); Lymphocytes % (auto) 14.8 % (10.0-50.0); Mean Corpuscular Hemoglobin 25.3 pg (28.0-32.0); Mean Corpuscular Hgb Conc. 32.7 g/dL (32.0-36.0); Mean Corpuscular Volume 77.5 fL (80.0-100.0); Monocytes # (auto) 0.5 10 ^3/uL (0-1.3); Monocytes % (auto) 7.1 % (0.0-12.0); Platelet Count (auto) 241 10^3/uL (140-450); Red Blood Cells 5.39 10^6/uL (4.5-5.90); White Blood Cell 7.4 10^3/uL (4.4-10.8)
[2020-11-21 11:46] LABS: Red Cell Distribution Width 20.5 % (11.8-14.3)
[2020-11-21 11:52] LABS: Albumin 3.3 g/dL (3.4-5.0); Calcium 8.3 mg/dL (8.5-10.1); Magnesium 1.6 mg/dL (1.6-2.6); Potassium 3.6 mmol/L (3.5-5.1)
[2020-11-21 11:55] LABS: Bilirubin, Total 0.6 mg/dL (0.2-1.0); Total Protein 8.2 g/dL (6.4-8.2)
[2020-11-21] MEDS: MAGNESIUM SULFATE 1GM/100ML 100 ML IV SCH ×2 (12:45→14:27)
== END | disposition home or self-care (01) ==
LOC: CHF HDHVI 09:44
PROVIDERS: ATTEND Internal Medicine Cardiovascular Disease
DX: I13.0 Hypertensive heart and chronic kidney disease with heart failure and stage 1 through stage 4 chronic kidney disease, or unspecified chronic kidney disease (principal); E11.22 Type 2 diabetes mellitus with diabetic chronic kidney disease; I50.42 Chronic combined systolic (congestive) and diastolic (congestive) heart failure; N18.30 Chronic kidney disease, stage 3 unspecified; I25.10 Atherosclerotic heart disease of native coronary artery without angina pectoris; I42.8 Other cardiomyopathies; I48.91 Unspecified atrial fibrillation; J44.9 Chronic obstructive pulmonary disease, unspecified; E11.51 Type 2 diabetes mellitus with diabetic peripheral angiopathy without gangrene; E78.5 Hyperlipidemia, unspecified; E03.9 Hypothyroidism, unspecified; R53.83 Other fatigue; F41.9 Anxiety disorder, unspecified; E66.01 Morbid (severe) obesity due to excess calories; Z68.34 Body mass index [BMI] 34.0-34.9, adult; Z95.810 Presence of automatic (implantable) cardiac defibrillator; Z95.5 Presence of coronary angioplasty implant and graft; Z87.891 Personal history of nicotine dependence; Z86.73 Personal history of transient ischemic attack (TIA), and cerebral infarction without residual deficits
CPT/HCPCS: 36415; 80053; 83735; 83880; 85025; 96365; 96366; 96367; G0463; J1642; J2260; J3475

== ENCOUNTER → 2020-12-05 | Outpatient (CLI) | payer MEDICARE, MEDICAID ==
[2020-12-05] VITALS (12 sets, daily range): BP systolic 90–118; BP diastolic 49–69
[~2020-12-05] MED LIST changes: +CYANOCOBALAMIN (B-12) 1000 MCG/1 ML VIAL IM ONE; +CYANOCOBALAMIN (B-12) 1000 MCG/1 ML VIAL ONE; -MAGNESIUM SULFATE 1GM/100ML 300 ML IV ONE
[2020-12-05 12:54] LABS: Calcium 9.1 mg/dL (8.5-10.1); Magnesium 2.2 mg/dL (1.6-2.6); Potassium 3.3 mmol/L (3.5-5.1)
[2020-12-05 12:56] LABS: BUN/Creatinine Ratio 17.3
== END | disposition home or self-care (01) ==
LOC: CHF HDHVI 09:18
PROVIDERS: ATTEND Internal Medicine Cardiovascular Disease
DX: I13.0 Hypertensive heart and chronic kidney disease with heart failure and stage 1 through stage 4 chronic kidney disease, or unspecified chronic kidney disease (principal); E11.22 Type 2 diabetes mellitus with diabetic chronic kidney disease; I50.42 Chronic combined systolic (congestive) and diastolic (congestive) heart failure; N18.30 Chronic kidney disease, stage 3 unspecified; I25.10 Atherosclerotic heart disease of native coronary artery without angina pectoris; I42.8 Other cardiomyopathies; I48.91 Unspecified atrial fibrillation; J44.9 Chronic obstructive pulmonary disease, unspecified; E78.5 Hyperlipidemia, unspecified; E03.9 Hypothyroidism, unspecified; E11.51 Type 2 diabetes mellitus with diabetic peripheral angiopathy without gangrene; G89.4 Chronic pain syndrome; E66.01 Morbid (severe) obesity due to excess calories; Z68.34 Body mass index [BMI] 34.0-34.9, adult; Z79.01 Long term (current) use of anticoagulants; Z95.810 Presence of automatic (implantable) cardiac defibrillator; Z95.5 Presence of coronary angioplasty implant and graft; Z86.73 Personal history of transient ischemic attack (TIA), and cerebral infarction without residual deficits; Z79.02 Long term (current) use of antithrombotics/antiplatelets
CPT/HCPCS: 36415; 80048; 83735; 83880; 96365; 96366; 96372; G0463; J1642; J2260; J3420

== ENCOUNTER → 2020-12-07 | Outpatient (CLI) | payer MEDICARE, MEDICAID ==
[2020-12-07] VITALS (11 sets, daily range): BP systolic 86–110; BP diastolic 49–65
[~2020-12-07] MED LIST changes: -CYANOCOBALAMIN (B-12) 1000 MCG/1 ML VIAL IM ONE; -CYANOCOBALAMIN (B-12) 1000 MCG/1 ML VIAL ONE
[2020-12-07 12:09] LABS: Potassium 3.6 mmol/L (3.5-5.1)
[2020-12-07 12:16] LABS: Magnesium 2.3 mg/dL (1.6-2.6)
== END | disposition home or self-care (01) ==
LOC: CHF HDHVI 09:03
PROVIDERS: ATTEND Internal Medicine Cardiovascular Disease
DX: I13.0 Hypertensive heart and chronic kidney disease with heart failure and stage 1 through stage 4 chronic kidney disease, or unspecified chronic kidney disease (principal); E11.22 Type 2 diabetes mellitus with diabetic chronic kidney disease; I50.23 Acute on chronic systolic (congestive) heart failure; N18.30 Chronic kidney disease, stage 3 unspecified; I25.10 Atherosclerotic heart disease of native coronary artery without angina pectoris; E78.5 Hyperlipidemia, unspecified; E03.9 Hypothyroidism, unspecified; E11.51 Type 2 diabetes mellitus with diabetic peripheral angiopathy without gangrene; I48.91 Unspecified atrial fibrillation; F41.9 Anxiety disorder, unspecified; Z87.891 Personal history of nicotine dependence; Z79.899 Other long term (current) drug therapy; Z79.01 Long term (current) use of anticoagulants; Z95.810 Presence of automatic (implantable) cardiac defibrillator; Z86.73 Personal history of transient ischemic attack (TIA), and cerebral infarction without residual deficits
CPT/HCPCS: 36415; 82565; 83735; 83880; 84132; 84520; 96365; 96366; G0463; J1642; J2260

== ENCOUNTER → 2020-12-19 | Outpatient (CLI) | payer MEDICARE, MEDICAID ==
[~2020-12-19] MED LIST changes: -MILRINONE 20MG/100ML 100 ML IV ONE
== END | disposition home or self-care (01) ==
LOC: Rad HDHVI 10:58
PROVIDERS: ATTEND Internal Medicine Cardiovascular Disease
DX: I08.3 Combined rheumatic disorders of mitral, aortic and tricuspid valves (principal); I50.43 Acute on chronic combined systolic (congestive) and diastolic (congestive) heart failure; R00.2 Palpitations
CPT/HCPCS: 93306

== ENCOUNTER → 2020-12-26 | Outpatient (CLI) | payer MEDICARE, MEDICAID ==
[2020-12-26] VITALS (11 sets, daily range): BP systolic 97–122; BP diastolic 45–67
[~2020-12-26] MED LIST changes: +FUROSEMIDE 20 MG/2 ML VIAL IV ONE; +FUROSEMIDE 20 MG/2 ML VIAL ONE; +FUROSEMIDE 40 MG/4 ML VIAL ONE; +MILRINONE 20MG/100ML 100 ML IV ONE; +POTASSIUM EFFERVESENT TAB 25 MEQ ONE; +POTASSIUM EFFERVESENT TAB 25 MEQ PO ONE
[2020-12-26 11:50] LABS: Basophils # (auto) 0 10 ^3/uL (0-0.2); Basophils % (auto) 0.5 % (0.0-2.0); Eosinophils # (auto) 0.1 10 ^3/uL (0-0.8); Eosinophils % (auto) 1.1 % (0.0-7.0); Monocytes # (auto) 0.6 10 ^3/uL (0-1.3)
[2020-12-26 11:52] LABS: Hematocrit 41.8 % (41.0-53.0); Hemoglobin 13.5 g/dL (13.5-17.5); Lymphocytes # (auto) 1.4 10 ^3/uL (0.4-5.4); Lymphocytes % (auto) 21.3 % (10.0-50.0); Mean Corpuscular Hemoglobin 25.4 pg (28.0-32.0); Mean Corpuscular Hgb Conc. 32.4 g/dL (32.0-36.0); Mean Corpuscular Volume 78.3 fL (80.0-100.0); Monocytes % (auto) 9.4 % (0.0-12.0); Neutrophils # (auto) 4.4 10 ^3/uL (1.6-8.6); Neutrophils % (auto) 67.7 % (37.0-80.0); Nucleated Red Blood Cells % 0.2 %; Platelet Count (auto) 269 10^3/uL (140-450); Red Blood Cells 5.34 10^6/uL (4.5-5.90); White Blood Cell 6.5 10^3/uL (4.4-10.8)
[2020-12-26 11:57] LABS: Red Cell Distribution Width 20.7 % (11.8-14.3)
[2020-12-26 11:59] LABS: BUN/Creatinine Ratio 12.3; Calcium 9.3 mg/dL (8.5-10.1); Magnesium 2.3 mg/dL (1.6-2.6); Potassium 4.1 mmol/L (3.5-5.1)
== END | disposition home or self-care (01) ==
LOC: CHF HDHVI 09:09
PROVIDERS: ATTEND Internal Medicine Cardiovascular Disease
DX: I13.0 Hypertensive heart and chronic kidney disease with heart failure and stage 1 through stage 4 chronic kidney disease, or unspecified chronic kidney disease (principal); E11.22 Type 2 diabetes mellitus with diabetic chronic kidney disease; I50.42 Chronic combined systolic (congestive) and diastolic (congestive) heart failure; N18.30 Chronic kidney disease, stage 3 unspecified; I25.10 Atherosclerotic heart disease of native coronary artery without angina pectoris; I48.91 Unspecified atrial fibrillation; I42.8 Other cardiomyopathies; J44.9 Chronic obstructive pulmonary disease, unspecified; E11.51 Type 2 diabetes mellitus with diabetic peripheral angiopathy without gangrene; E78.5 Hyperlipidemia, unspecified; E03.9 Hypothyroidism, unspecified; F41.9 Anxiety disorder, unspecified; Z79.01 Long term (current) use of anticoagulants; Z79.899 Other long term (current) drug therapy; Z87.891 Personal history of nicotine dependence; Z95.810 Presence of automatic (implantable) cardiac defibrillator; Z86.73 Personal history of transient ischemic attack (TIA), and cerebral infarction without residual deficits; Z95.5 Presence of coronary angioplasty implant and graft
CPT/HCPCS: 36415; 80048; 83735; 83880; 85025; 96365; 96366; 96375; G0463; J1642; J1940; J2260

== ENCOUNTER → 2021-01-02 | Outpatient (CLI) | payer MEDICARE, MEDICAID ==
[2021-01-02] VITALS (11 sets, daily range): BP systolic 98–118; BP diastolic 52–69
[~2021-01-02] MED LIST changes: -FUROSEMIDE 20 MG/2 ML VIAL IV ONE; -FUROSEMIDE 20 MG/2 ML VIAL ONE; -FUROSEMIDE 40 MG/4 ML VIAL ONE
[2021-01-02 11:38] LABS: Basophils # (auto) 0 10 ^3/uL (0-0.2); Basophils % (auto) 0.5 % (0.0-2.0); Eosinophils # (auto) 0.1 10 ^3/uL (0-0.8); Eosinophils % (auto) 0.9 % (0.0-7.0); Hemoglobin 14.5 g/dL (13.5-17.5); Lymphocytes # (auto) 1.7 10 ^3/uL (0.4-5.4); Monocytes # (auto) 0.9 10 ^3/uL (0-1.3); Neutrophils # (auto) 5.8 10 ^3/uL (1.6-8.6); White Blood Cell 8.5 10^3/uL (4.4-10.8)
[2021-01-02 11:40] LABS: Hematocrit 45.8 % (41.0-53.0); Lymphocytes % (auto) 20.4 % (10.0-50.0); Mean Corpuscular Hemoglobin 24.9 pg (28.0-32.0); Mean Corpuscular Hgb Conc. 31.6 g/dL (32.0-36.0); Mean Corpuscular Volume 78.8 fL (80.0-100.0); Monocytes % (auto) 10.5 % (0.0-12.0); Neutrophils % (auto) 67.7 % (37.0-80.0); Nucleated Red Blood Cells % 0.1 %; Platelet Count (auto) 269 10^3/uL (140-450); Red Blood Cells 5.81 10^6/uL (4.5-5.90)
[2021-01-02 11:41] LABS: Red Cell Distribution Width 20.6 % (11.8-14.3)
[2021-01-02 11:49] LABS: Albumin 3.4 g/dL (3.4-5.0); Calcium 9.4 mg/dL (8.5-10.1); Magnesium 2.6 mg/dL (1.6-2.6); Potassium 3.4 mmol/L (3.5-5.1)
[2021-01-02 11:52] LABS: BUN/Creatinine Ratio 19.1; Bilirubin, Total 0.3 mg/dL (0.2-1.0); Total Protein 8.4 g/dL (6.4-8.2)
== END | disposition home or self-care (01) ==
LOC: CHF HDHVI 08:59
PROVIDERS: ATTEND Internal Medicine Cardiovascular Disease
DX: I13.0 Hypertensive heart and chronic kidney disease with heart failure and stage 1 through stage 4 chronic kidney disease, or unspecified chronic kidney disease (principal); E11.22 Type 2 diabetes mellitus with diabetic chronic kidney disease; I50.23 Acute on chronic systolic (congestive) heart failure; N18.30 Chronic kidney disease, stage 3 unspecified; F41.9 Anxiety disorder, unspecified; I25.10 Atherosclerotic heart disease of native coronary artery without angina pectoris; J44.9 Chronic obstructive pulmonary disease, unspecified; E78.5 Hyperlipidemia, unspecified; E03.9 Hypothyroidism, unspecified; E11.51 Type 2 diabetes mellitus with diabetic peripheral angiopathy without gangrene; I48.91 Unspecified atrial fibrillation; Z79.01 Long term (current) use of anticoagulants; Z79.899 Other long term (current) drug therapy; Z87.891 Personal history of nicotine dependence; Z95.810 Presence of automatic (implantable) cardiac defibrillator; Z86.73 Personal history of transient ischemic attack (TIA), and cerebral infarction without residual deficits
CPT/HCPCS: 36415; 80053; 83036; 83735; 83880; 85025; 85610; 96365; 96366; G0463; J1642; J2260

== ENCOUNTER → 2021-01-09 | Outpatient (CLI) | payer MEDICARE, MEDICAID ==
[2021-01-09] VITALS (11 sets, daily range): BP systolic 92–128; BP diastolic 53–71
[~2021-01-09] MED LIST changes: +CYANOCOBALAMIN (B-12) 1000 MCG/1 ML VIAL IM ONE; +CYANOCOBALAMIN (B-12) 1000 MCG/1 ML VIAL ONE
[2021-01-09 12:43] LABS: Potassium 3.4 mmol/L (3.5-5.1)
== END | disposition home or self-care (01) ==
LOC: CHF HDHVI 10:07
PROVIDERS: ATTEND Internal Medicine Cardiovascular Disease
DX: I13.0 Hypertensive heart and chronic kidney disease with heart failure and stage 1 through stage 4 chronic kidney disease, or unspecified chronic kidney disease (principal); E11.22 Type 2 diabetes mellitus with diabetic chronic kidney disease; I50.23 Acute on chronic systolic (congestive) heart failure; N18.30 Chronic kidney disease, stage 3 unspecified; F41.9 Anxiety disorder, unspecified; I25.10 Atherosclerotic heart disease of native coronary artery without angina pectoris; J44.9 Chronic obstructive pulmonary disease, unspecified; E78.5 Hyperlipidemia, unspecified; E11.51 Type 2 diabetes mellitus with diabetic peripheral angiopathy without gangrene; I48.91 Unspecified atrial fibrillation; E03.9 Hypothyroidism, unspecified; Z79.01 Long term (current) use of anticoagulants; Z79.899 Other long term (current) drug therapy; Z87.891 Personal history of nicotine dependence; Z95.810 Presence of automatic (implantable) cardiac defibrillator; Z86.73 Personal history of transient ischemic attack (TIA), and cerebral infarction without residual deficits
CPT/HCPCS: 36415; 82565; 83880; 84132; 84520; 96365; 96366; 96372; G0463; J1642; J2260; J3420

== ENCOUNTER → 2021-01-11 | Outpatient (CLI) | payer MEDICARE, MEDICAID ==
[2021-01-11] VITALS (10 sets, daily range): BP systolic 85–115; BP diastolic 44–66
[~2021-01-11] MED LIST changes: -CYANOCOBALAMIN (B-12) 1000 MCG/1 ML VIAL IM ONE; -CYANOCOBALAMIN (B-12) 1000 MCG/1 ML VIAL ONE; -POTASSIUM EFFERVESENT TAB 25 MEQ ONE; -POTASSIUM EFFERVESENT TAB 25 MEQ PO ONE
== END | disposition home or self-care (01) ==
LOC: CHF HDHVI 09:25
PROVIDERS: ATTEND Internal Medicine Cardiovascular Disease
DX: I13.0 Hypertensive heart and chronic kidney disease with heart failure and stage 1 through stage 4 chronic kidney disease, or unspecified chronic kidney disease (principal); E11.22 Type 2 diabetes mellitus with diabetic chronic kidney disease; I50.23 Acute on chronic systolic (congestive) heart failure; N18.30 Chronic kidney disease, stage 3 unspecified; F41.9 Anxiety disorder, unspecified; I25.10 Atherosclerotic heart disease of native coronary artery without angina pectoris; J44.9 Chronic obstructive pulmonary disease, unspecified; E78.5 Hyperlipidemia, unspecified; E03.9 Hypothyroidism, unspecified; E11.51 Type 2 diabetes mellitus with diabetic peripheral angiopathy without gangrene; I48.91 Unspecified atrial fibrillation; Z79.01 Long term (current) use of anticoagulants; Z79.899 Other long term (current) drug therapy; Z87.891 Personal history of nicotine dependence; Z95.810 Presence of automatic (implantable) cardiac defibrillator
CPT/HCPCS: 96365; 96366; G0463; J1642; J2260

== ENCOUNTER → 2021-01-16 | Outpatient (CLI) | payer MEDICARE, MEDICAID ==
[2021-01-16] VITALS (11 sets, daily range): BP systolic 91–123; BP diastolic 45–66
[2021-01-16 11:51] LABS: Potassium 3.5 mmol/L (3.5-5.1)
== END | disposition home or self-care (01) ==
LOC: CHF HDHVI 08:55
PROVIDERS: ATTEND Internal Medicine Cardiovascular Disease
DX: I13.0 Hypertensive heart and chronic kidney disease with heart failure and stage 1 through stage 4 chronic kidney disease, or unspecified chronic kidney disease (principal); E11.22 Type 2 diabetes mellitus with diabetic chronic kidney disease; I50.23 Acute on chronic systolic (congestive) heart failure; N18.30 Chronic kidney disease, stage 3 unspecified; I25.10 Atherosclerotic heart disease of native coronary artery without angina pectoris; J44.9 Chronic obstructive pulmonary disease, unspecified; I48.91 Unspecified atrial fibrillation; E11.51 Type 2 diabetes mellitus with diabetic peripheral angiopathy without gangrene; E78.5 Hyperlipidemia, unspecified; E03.9 Hypothyroidism, unspecified; F41.9 Anxiety disorder, unspecified; E66.01 Morbid (severe) obesity due to excess calories; Z68.34 Body mass index [BMI] 34.0-34.9, adult; Z87.891 Personal history of nicotine dependence; Z79.01 Long term (current) use of anticoagulants; Z79.899 Other long term (current) drug therapy; Z95.810 Presence of automatic (implantable) cardiac defibrillator; Z95.5 Presence of coronary angioplasty implant and graft; Z86.73 Personal history of transient ischemic attack (TIA), and cerebral infarction without residual deficits
CPT/HCPCS: 36415; 82565; 83880; 84132; 84520; 96365; 96366; G0463; J1642; J2260

== ENCOUNTER → 2021-04-02 | Outpatient (CLI) | payer MEDICARE, MEDICAID ==
[~2021-04-02] MED LIST changes: +CYANOCOBALAMIN (B-12) 1000 MCG/1 ML VIAL IM ONE; +CYANOCOBALAMIN (B-12) 1000 MCG/1 ML VIAL ONE; -MILRINONE 20MG/100ML 100 ML IV ONE
[2021-04-02 11:44] VITALS: BP 130/84
[2021-04-02 12:00] VITALS: BP 140/74
[2021-04-02 13:59] LABS: Hemoglobin 14.5 g/dL (13.5-17.5); Mean Corpuscular Volume 78.5 fL (80.0-100.0); Nucleated Red Blood Cells % 0.3 %
[2021-04-02 14:02] LABS: Basophils # (auto) 0 10 ^3/uL (0-0.2); Basophils % (auto) 0.5 % (0.0-2.0); Eosinophils # (auto) 0 10 ^3/uL (0-0.8); Eosinophils % (auto) 0.8 % (0.0-7.0); Hematocrit 44.6 % (41.0-53.0); Lymphocytes # (auto) 1.4 10 ^3/uL (0.4-5.4); Lymphocytes % (auto) 24.5 % (10.0-50.0); Mean Corpuscular Hemoglobin 25.5 pg (28.0-32.0); Mean Corpuscular Hgb Conc. 32.5 g/dL (32.0-36.0); Monocytes # (auto) 0.7 10 ^3/uL (0-1.3); Monocytes % (auto) 11.1 % (0.0-12.0); Neutrophils # (auto) 3.7 10 ^3/uL (1.6-8.6); Neutrophils % (auto) 63.1 % (37.0-80.0); Red Blood Cells 5.68 10^6/uL (4.5-5.90); Red Cell Distribution Width 19.9 % (11.8-14.3); White Blood Cell 5.9 10^3/uL (4.4-10.8)
[2021-04-02 14:37] LABS: Prostate Specific Antigen 0.97 ng/mL (0.0-4.0)
[2021-04-02 14:38] LABS: Potassium 3.5 mmol/L (3.5-5.1)
[2021-04-02 14:43] LABS: Albumin 3.7 g/dL (3.4-5.0); BUN/Creatinine Ratio 12.5; Bilirubin, Total 0.5 mg/dL (0.2-1.0); Calcium 8.7 mg/dL (8.5-10.1); Magnesium 2.6 mg/dL (1.6-2.6); Total Protein 8.5 g/dL (6.4-8.2)
== END | disposition home or self-care (01) ==
LOC: CHF HDHVI 11:50
PROVIDERS: ATTEND Internal Medicine Cardiovascular Disease
DX: I13.0 Hypertensive heart and chronic kidney disease with heart failure and stage 1 through stage 4 chronic kidney disease, or unspecified chronic kidney disease (principal); E11.22 Type 2 diabetes mellitus with diabetic chronic kidney disease; I50.42 Chronic combined systolic (congestive) and diastolic (congestive) heart failure; N18.30 Chronic kidney disease, stage 3 unspecified; R53.83 Other fatigue; I25.10 Atherosclerotic heart disease of native coronary artery without angina pectoris; I48.91 Unspecified atrial fibrillation; I42.8 Other cardiomyopathies; J44.9 Chronic obstructive pulmonary disease, unspecified; E11.51 Type 2 diabetes mellitus with diabetic peripheral angiopathy without gangrene; G89.4 Chronic pain syndrome; E78.5 Hyperlipidemia, unspecified; E03.9 Hypothyroidism, unspecified; E66.01 Morbid (severe) obesity due to excess calories; F41.9 Anxiety disorder, unspecified; Z79.01 Long term (current) use of anticoagulants; Z79.02 Long term (current) use of antithrombotics/antiplatelets; Z68.34 Body mass index [BMI] 34.0-34.9, adult; Z79.899 Other long term (current) drug therapy; Z87.891 Personal history of nicotine dependence; Z95.810 Presence of automatic (implantable) cardiac defibrillator; Z85.46 Personal history of malignant neoplasm of prostate; Z86.73 Personal history of transient ischemic attack (TIA), and cerebral infarction without residual deficits
CPT/HCPCS: 36415; 80053; 80162; 82306; 82607; 83735; 83880; 84153; 85025; 85610; 96372; G0463; J1642; J3420

== ENCOUNTER → 2021-04-13 | Outpatient (CLI) | payer MEDICARE, MEDICAID ==
[~2021-04-13] MED LIST changes: -CYANOCOBALAMIN (B-12) 1000 MCG/1 ML VIAL IM ONE; -CYANOCOBALAMIN (B-12) 1000 MCG/1 ML VIAL ONE; +FUROSEMIDE 20 MG/2 ML VIAL IV ONE; +FUROSEMIDE 20 MG/2 ML VIAL ONE; +FUROSEMIDE 40 MG/4 ML VIAL ONE; +FUROSEMIDE INJECTION 10 ML ONE; +FUROSEMIDE INJECTION 100 MG in SODIUM CHL 0.9% 100 ML IV ONE; +POTASSIUM CHL 10 Meq TABLET PO ONE; +POTASSIUM CHL 20 Meq TABLET PO ONE
[2021-04-13 08:52] LABS: Basophils # (auto) 0 10 ^3/uL (0-0.2); Basophils % (auto) 0.4 % (0.0-2.0); Eosinophils # (auto) 0 10 ^3/uL (0-0.8); Hematocrit 40.2 % (41.0-53.0); Red Blood Cells 5.19 10^6/uL (4.5-5.90)
[2021-04-13 08:54] LABS: Eosinophils % (auto) 0.4 % (0.0-7.0); Lymphocytes % (auto) 11.3 % (10.0-50.0); Mean Corpuscular Hemoglobin 25.1 pg (28.0-32.0); Mean Corpuscular Hgb Conc. 32.3 g/dL (32.0-36.0); Mean Corpuscular Volume 77.5 fL (80.0-100.0); Neutrophils # (auto) 6.9 10 ^3/uL (1.6-8.6); Neutrophils % (auto) 76.9 % (37.0-80.0); Nucleated Red Blood Cells % 0.2 %; Red Cell Distribution Width 19.8 % (11.8-14.3)
[2021-04-13 09:00] VITALS: BP 136/94
[2021-04-13 09:08] LABS: Albumin 3.7 g/dL (3.4-5.0); Magnesium 2.3 mg/dL (1.6-2.6); Potassium 3.4 mmol/L (3.5-5.1)
[2021-04-13 09:10] LABS: BUN/Creatinine Ratio 10.8
[2021-04-13 09:12] LABS: Bilirubin, Total 0.8 mg/dL (0.2-1.0); Total Protein 8.2 g/dL (6.4-8.2)
[2021-04-13 10:00] VITALS: BP 122/92
[2021-04-13 11:00] VITALS: BP 134/84
[2021-04-13 11:30] VITALS: BP 123/99
[2021-04-13 13:25] VITALS: BP 142/85
== END | disposition home or self-care (01) ==
LOC: CHF HDHVI 08:20
PROVIDERS: ATTEND Internal Medicine Cardiovascular Disease
DX: I13.0 Hypertensive heart and chronic kidney disease with heart failure and stage 1 through stage 4 chronic kidney disease, or unspecified chronic kidney disease (principal); E11.22 Type 2 diabetes mellitus with diabetic chronic kidney disease; I50.42 Chronic combined systolic (congestive) and diastolic (congestive) heart failure; N18.30 Chronic kidney disease, stage 3 unspecified; E87.6 Hypokalemia; M79.89 Other specified soft tissue disorders; R60.9 Edema, unspecified; I25.10 Atherosclerotic heart disease of native coronary artery without angina pectoris; I42.8 Other cardiomyopathies; I48.91 Unspecified atrial fibrillation; J44.9 Chronic obstructive pulmonary disease, unspecified; E11.51 Type 2 diabetes mellitus with diabetic peripheral angiopathy without gangrene; G89.4 Chronic pain syndrome; E78.5 Hyperlipidemia, unspecified; E03.9 Hypothyroidism, unspecified; E66.01 Morbid (severe) obesity due to excess calories; Z79.01 Long term (current) use of anticoagulants; Z79.02 Long term (current) use of antithrombotics/antiplatelets; Z87.891 Personal history of nicotine dependence; Z85.46 Personal history of malignant neoplasm of prostate; Z95.810 Presence of automatic (implantable) cardiac defibrillator; Z86.73 Personal history of transient ischemic attack (TIA), and cerebral infarction without residual deficits; Z68.34 Body mass index [BMI] 34.0-34.9, adult
CPT/HCPCS: 36415; 80053; 83735; 83880; 85025; 96365; 96366; 96375; G0463; J1642; J1940

== ENCOUNTER → 2021-04-16 | Outpatient (CLI) | payer MEDICARE, MEDICAID ==
[2021-04-16] VITALS (11 sets, daily range): BP systolic 103–135; BP diastolic 63–96
[~2021-04-16] VITALS: Ht 30.5 cm; Wt 129.4 kg
[~2021-04-16] MED LIST changes: +FUROSEMIDE 100 MG/10ML VIAL IV ONE; -FUROSEMIDE 20 MG/2 ML VIAL IV ONE; -FUROSEMIDE 40 MG/4 ML VIAL ONE; -FUROSEMIDE INJECTION 100 MG in SODIUM CHL 0.9% 100 ML IV ONE; +MILRINONE 20MG/100ML 100 ML IV ONE
[2021-04-16 11:39] LABS: BUN/Creatinine Ratio 13.8; Calcium 9.3 mg/dL (8.5-10.1); Magnesium 2.4 mg/dL (1.6-2.6); Potassium 3.3 mmol/L (3.5-5.1)
== END | disposition home or self-care (01) ==
LOC: CHF HDHVI 08:39
PROVIDERS: ATTEND Internal Medicine Cardiovascular Disease
DX: I13.0 Hypertensive heart and chronic kidney disease with heart failure and stage 1 through stage 4 chronic kidney disease, or unspecified chronic kidney disease (principal); E11.22 Type 2 diabetes mellitus with diabetic chronic kidney disease; I50.42 Chronic combined systolic (congestive) and diastolic (congestive) heart failure; N18.30 Chronic kidney disease, stage 3 unspecified; E87.6 Hypokalemia; M79.89 Other specified soft tissue disorders; R60.9 Edema, unspecified; I25.10 Atherosclerotic heart disease of native coronary artery without angina pectoris; I42.8 Other cardiomyopathies; I48.91 Unspecified atrial fibrillation; J44.9 Chronic obstructive pulmonary disease, unspecified; E11.51 Type 2 diabetes mellitus with diabetic peripheral angiopathy without gangrene; G89.4 Chronic pain syndrome; E78.5 Hyperlipidemia, unspecified; E03.9 Hypothyroidism, unspecified; E66.01 Morbid (severe) obesity due to excess calories; Z68.34 Body mass index [BMI] 34.0-34.9, adult; Z79.01 Long term (current) use of anticoagulants; Z79.02 Long term (current) use of antithrombotics/antiplatelets; Z87.891 Personal history of nicotine dependence; Z85.46 Personal history of malignant neoplasm of prostate; Z95.810 Presence of automatic (implantable) cardiac defibrillator; Z86.73 Personal history of transient ischemic attack (TIA), and cerebral infarction without residual deficits
CPT/HCPCS: 36415; 80048; 83735; 83880; 96365; 96366; 96375; G0463; J1642; J1940; J2260

== ENCOUNTER → 2021-04-18 | Outpatient (CLI) | payer MEDICARE, MEDICAID ==
[2021-04-18] VITALS (11 sets, daily range): BP systolic 106–128; BP diastolic 53–78
[~2021-04-18] VITALS: Ht 30.5 cm; Wt 128.8 kg
[~2021-04-18] MED LIST changes: -FUROSEMIDE 100 MG/10ML VIAL IV ONE; -FUROSEMIDE 20 MG/2 ML VIAL ONE; -FUROSEMIDE INJECTION 10 ML ONE
[2021-04-18 11:40] LABS: Potassium 3.4 mmol/L (3.5-5.1)
== END | disposition home or self-care (01) ==
LOC: CHF HDHVI 08:40
PROVIDERS: ATTEND Internal Medicine Cardiovascular Disease
DX: I13.0 Hypertensive heart and chronic kidney disease with heart failure and stage 1 through stage 4 chronic kidney disease, or unspecified chronic kidney disease (principal); E11.22 Type 2 diabetes mellitus with diabetic chronic kidney disease; I50.42 Chronic combined systolic (congestive) and diastolic (congestive) heart failure; N18.30 Chronic kidney disease, stage 3 unspecified; I25.10 Atherosclerotic heart disease of native coronary artery without angina pectoris; I42.8 Other cardiomyopathies; I48.91 Unspecified atrial fibrillation; J44.9 Chronic obstructive pulmonary disease, unspecified; R41.82 Altered mental status, unspecified; R53.83 Other fatigue; E11.51 Type 2 diabetes mellitus with diabetic peripheral angiopathy without gangrene; E78.5 Hyperlipidemia, unspecified; E03.9 Hypothyroidism, unspecified; E66.01 Morbid (severe) obesity due to excess calories; F41.9 Anxiety disorder, unspecified; G89.4 Chronic pain syndrome; Z79.01 Long term (current) use of anticoagulants; Z79.02 Long term (current) use of antithrombotics/antiplatelets; Z68.34 Body mass index [BMI] 34.0-34.9, adult; Z85.46 Personal history of malignant neoplasm of prostate; Z95.810 Presence of automatic (implantable) cardiac defibrillator; Z86.73 Personal history of transient ischemic attack (TIA), and cerebral infarction without residual deficits; Z79.899 Other long term (current) drug therapy
CPT/HCPCS: 36415; 70496; 82565; 83880; 84132; 84520; 96365; 96366; G0463; J1642; J2260

== ENCOUNTER → 2021-04-23 | Outpatient (CLI) | payer MEDICARE, MEDICAID ==
[2021-04-23] VITALS (11 sets, daily range): BP systolic 89–117; BP diastolic 52–68
[~2021-04-23] MED LIST changes: -POTASSIUM CHL 10 Meq TABLET PO ONE; -POTASSIUM CHL 20 Meq TABLET PO ONE
[2021-04-23 11:46] LABS: Eosinophils # (auto) 0.1 10 ^3/uL (0-0.8); Lymphocytes # (auto) 1.2 10 ^3/uL (0.4-5.4)
[2021-04-23 11:48] LABS: Basophils # (auto) 0 10 ^3/uL (0-0.2); Basophils % (auto) 0.5 % (0.0-2.0); Eosinophils % (auto) 1.7 % (0.0-7.0); Hematocrit 43.6 % (41.0-53.0); Lymphocytes % (auto) 20.4 % (10.0-50.0); Mean Corpuscular Hemoglobin 24.8 pg (28.0-32.0); Mean Corpuscular Hgb Conc. 32.1 g/dL (32.0-36.0); Mean Corpuscular Volume 77.1 fL (80.0-100.0); Monocytes # (auto) 0.5 10 ^3/uL (0-1.3); Monocytes % (auto) 9.1 % (0.0-12.0); Neutrophils % (auto) 68.3 % (37.0-80.0); Nucleated Red Blood Cells % 0.1 %; Red Blood Cells 5.65 10^6/uL (4.5-5.90); Red Cell Distribution Width 18.8 % (11.8-14.3); White Blood Cell 5.9 10^3/uL (4.4-10.8)
[2021-04-23 11:50] LABS: Calcium 9.1 mg/dL (8.5-10.1); Potassium 4.1 mmol/L (3.5-5.1)
[2021-04-23 11:52] LABS: BUN/Creatinine Ratio 11.3
== END | disposition home or self-care (01) ==
LOC: CHF HDHVI 08:48
PROVIDERS: ATTEND Internal Medicine Cardiovascular Disease
DX: I13.0 Hypertensive heart and chronic kidney disease with heart failure and stage 1 through stage 4 chronic kidney disease, or unspecified chronic kidney disease (principal); E11.22 Type 2 diabetes mellitus with diabetic chronic kidney disease; I50.42 Chronic combined systolic (congestive) and diastolic (congestive) heart failure; N18.30 Chronic kidney disease, stage 3 unspecified; I25.10 Atherosclerotic heart disease of native coronary artery without angina pectoris; I42.8 Other cardiomyopathies; I48.91 Unspecified atrial fibrillation; J44.9 Chronic obstructive pulmonary disease, unspecified; E11.51 Type 2 diabetes mellitus with diabetic peripheral angiopathy without gangrene; E78.5 Hyperlipidemia, unspecified; E03.9 Hypothyroidism, unspecified; G89.4 Chronic pain syndrome; F41.9 Anxiety disorder, unspecified; E66.01 Morbid (severe) obesity due to excess calories; Z68.34 Body mass index [BMI] 34.0-34.9, adult; Z79.01 Long term (current) use of anticoagulants; Z79.02 Long term (current) use of antithrombotics/antiplatelets; Z79.899 Other long term (current) drug therapy; Z85.46 Personal history of malignant neoplasm of prostate; Z95.810 Presence of automatic (implantable) cardiac defibrillator; Z86.73 Personal history of transient ischemic attack (TIA), and cerebral infarction without residual deficits; Z87.891 Personal history of nicotine dependence
CPT/HCPCS: 36415; 80048; 83880; 85025; 96365; 96366; G0463; J1642; J2260

== ENCOUNTER → 2021-04-25 | Outpatient (CLI) | payer MEDICARE, MEDICAID ==
[2021-04-25] VITALS (11 sets, daily range): BP systolic 93–126; BP diastolic 53–80
== END | disposition home or self-care (01) ==
LOC: CHF HDHVI 09:16
PROVIDERS: ATTEND Internal Medicine Cardiovascular Disease
DX: I13.0 Hypertensive heart and chronic kidney disease with heart failure and stage 1 through stage 4 chronic kidney disease, or unspecified chronic kidney disease (principal); E11.22 Type 2 diabetes mellitus with diabetic chronic kidney disease; I50.42 Chronic combined systolic (congestive) and diastolic (congestive) heart failure; N18.30 Chronic kidney disease, stage 3 unspecified; R53.83 Other fatigue; I25.10 Atherosclerotic heart disease of native coronary artery without angina pectoris; I42.8 Other cardiomyopathies; I48.91 Unspecified atrial fibrillation; J44.9 Chronic obstructive pulmonary disease, unspecified; E11.51 Type 2 diabetes mellitus with diabetic peripheral angiopathy without gangrene; E78.5 Hyperlipidemia, unspecified; E03.9 Hypothyroidism, unspecified; G89.4 Chronic pain syndrome; E66.01 Morbid (severe) obesity due to excess calories; Z68.34 Body mass index [BMI] 34.0-34.9, adult; Z79.01 Long term (current) use of anticoagulants; Z79.02 Long term (current) use of antithrombotics/antiplatelets; Z87.891 Personal history of nicotine dependence; Z79.899 Other long term (current) drug therapy; Z85.46 Personal history of malignant neoplasm of prostate; Z95.810 Presence of automatic (implantable) cardiac defibrillator; Z86.73 Personal history of transient ischemic attack (TIA), and cerebral infarction without residual deficits
CPT/HCPCS: 96365; 96366; G0463; J1642; J2260

== ENCOUNTER → 2021-04-30 | Outpatient (CLI) | payer MEDICARE, MEDICAID ==
[2021-04-30] VITALS (11 sets, daily range): BP systolic 96–138; BP diastolic 50–83
[~2021-04-30] MED LIST changes: +BACITRACIN TOP OINT 1 UD PKG TOP ONE; +CYANOCOBALAMIN (B-12) 1000 MCG/1 ML VIAL IM ONE; +CYANOCOBALAMIN (B-12) 1000 MCG/1 ML VIAL ONE
[2021-04-30 11:08] LABS: BUN/Creatinine Ratio 15.1; Calcium 8.6 mg/dL (8.5-10.1); Magnesium 2.4 mg/dL (1.6-2.6); Uric Acid 5.3 mg/dL (3.5-7.2)
== END | disposition home or self-care (01) ==
LOC: CHF HDHVI 08:28
PROVIDERS: ATTEND Internal Medicine Cardiovascular Disease
DX: I13.0 Hypertensive heart and chronic kidney disease with heart failure and stage 1 through stage 4 chronic kidney disease, or unspecified chronic kidney disease (principal); E11.22 Type 2 diabetes mellitus with diabetic chronic kidney disease; I50.42 Chronic combined systolic (congestive) and diastolic (congestive) heart failure; N18.30 Chronic kidney disease, stage 3 unspecified; R53.83 Other fatigue; I25.10 Atherosclerotic heart disease of native coronary artery without angina pectoris; I42.8 Other cardiomyopathies; I48.91 Unspecified atrial fibrillation; J44.9 Chronic obstructive pulmonary disease, unspecified; E11.51 Type 2 diabetes mellitus with diabetic peripheral angiopathy without gangrene; G89.4 Chronic pain syndrome; E78.5 Hyperlipidemia, unspecified; E03.9 Hypothyroidism, unspecified; F41.9 Anxiety disorder, unspecified; E66.01 Morbid (severe) obesity due to excess calories; Z68.34 Body mass index [BMI] 34.0-34.9, adult; Z79.01 Long term (current) use of anticoagulants; Z79.02 Long term (current) use of antithrombotics/antiplatelets; Z79.899 Other long term (current) drug therapy; Z85.46 Personal history of malignant neoplasm of prostate; Z87.891 Personal history of nicotine dependence; Z95.810 Presence of automatic (implantable) cardiac defibrillator; Z86.73 Personal history of transient ischemic attack (TIA), and cerebral infarction without residual deficits
CPT/HCPCS: 36415; 80048; 83735; 83880; 84550; 96365; 96366; 96372; G0463; J1642; J2260; J3420

== ENCOUNTER → 2021-05-02 | Outpatient (CLI) | payer MEDICARE, MEDICAID ==
[2021-05-02] VITALS (11 sets, daily range): BP systolic 96–160; BP diastolic 58–92
[~2021-05-02] MED LIST changes: -BACITRACIN TOP OINT 1 UD PKG TOP ONE; -CYANOCOBALAMIN (B-12) 1000 MCG/1 ML VIAL IM ONE; -CYANOCOBALAMIN (B-12) 1000 MCG/1 ML VIAL ONE
== END | disposition home or self-care (01) ==
LOC: CHF HDHVI 08:45
PROVIDERS: ATTEND Internal Medicine Cardiovascular Disease
DX: I13.0 Hypertensive heart and chronic kidney disease with heart failure and stage 1 through stage 4 chronic kidney disease, or unspecified chronic kidney disease (principal); E11.22 Type 2 diabetes mellitus with diabetic chronic kidney disease; I50.42 Chronic combined systolic (congestive) and diastolic (congestive) heart failure; N18.30 Chronic kidney disease, stage 3 unspecified; R53.83 Other fatigue; I25.10 Atherosclerotic heart disease of native coronary artery without angina pectoris; I42.8 Other cardiomyopathies; I48.91 Unspecified atrial fibrillation; J44.9 Chronic obstructive pulmonary disease, unspecified; E11.51 Type 2 diabetes mellitus with diabetic peripheral angiopathy without gangrene; E78.5 Hyperlipidemia, unspecified; E03.9 Hypothyroidism, unspecified; G89.4 Chronic pain syndrome; F41.9 Anxiety disorder, unspecified; E66.01 Morbid (severe) obesity due to excess calories; Z68.34 Body mass index [BMI] 34.0-34.9, adult; Z79.01 Long term (current) use of anticoagulants; Z79.02 Long term (current) use of antithrombotics/antiplatelets; Z79.899 Other long term (current) drug therapy; Z87.891 Personal history of nicotine dependence; Z85.46 Personal history of malignant neoplasm of prostate; Z95.810 Presence of automatic (implantable) cardiac defibrillator; Z86.73 Personal history of transient ischemic attack (TIA), and cerebral infarction without residual deficits
CPT/HCPCS: 96365; 96366; G0463; J1642; J2260

== ENCOUNTER → 2021-05-16 | Outpatient (CLI) | payer MEDICARE, MEDICAID ==
[2021-05-16] VITALS (11 sets, daily range): BP systolic 92–130; BP diastolic 59–86
[~2021-05-16] MED LIST changes: +POTASSIUM CHL 10 Meq TABLET PO ONE; +POTASSIUM CHL 20 Meq TABLET PO ONE
[2021-05-16 11:36] LABS: Potassium 3.3 mmol/L (3.5-5.1)
== END | disposition home or self-care (01) ==
LOC: CHF HDHVI 08:35
PROVIDERS: ATTEND Internal Medicine Cardiovascular Disease
DX: I13.0 Hypertensive heart and chronic kidney disease with heart failure and stage 1 through stage 4 chronic kidney disease, or unspecified chronic kidney disease (principal); E11.22 Type 2 diabetes mellitus with diabetic chronic kidney disease; I50.23 Acute on chronic systolic (congestive) heart failure; N18.30 Chronic kidney disease, stage 3 unspecified; I25.10 Atherosclerotic heart disease of native coronary artery without angina pectoris; I48.91 Unspecified atrial fibrillation; J44.9 Chronic obstructive pulmonary disease, unspecified; E11.51 Type 2 diabetes mellitus with diabetic peripheral angiopathy without gangrene; E78.5 Hyperlipidemia, unspecified; E03.9 Hypothyroidism, unspecified; E66.01 Morbid (severe) obesity due to excess calories; Z68.34 Body mass index [BMI] 34.0-34.9, adult; Z79.01 Long term (current) use of anticoagulants; Z79.02 Long term (current) use of antithrombotics/antiplatelets; Z87.891 Personal history of nicotine dependence; Z95.810 Presence of automatic (implantable) cardiac defibrillator; Z86.73 Personal history of transient ischemic attack (TIA), and cerebral infarction without residual deficits
CPT/HCPCS: 36415; 82565; 83880; 84132; 84520; 96365; 96366; G0463; J1642; J2260

== ENCOUNTER → 2021-06-13 | Outpatient (CLI) | payer MEDICARE, MEDICAID ==
[~2021-06-13] VITALS: Ht 172.7 cm; Wt 124.4 kg
[2021-06-13] VITALS (12 sets, daily range): BP systolic 95–124; BP diastolic 50–85
[~2021-06-13] MED LIST changes: +IVABRADINE 5 MG TAB ONE; +IVABRADINE 5 MG TAB PO ONE; -POTASSIUM CHL 10 Meq TABLET PO ONE; -POTASSIUM CHL 20 Meq TABLET PO ONE
== END | disposition home or self-care (01) ==
LOC: CHF HDHVI 08:47
PROVIDERS: ATTEND Internal Medicine Cardiovascular Disease
DX: I13.0 Hypertensive heart and chronic kidney disease with heart failure and stage 1 through stage 4 chronic kidney disease, or unspecified chronic kidney disease (principal); E11.22 Type 2 diabetes mellitus with diabetic chronic kidney disease; I50.42 Chronic combined systolic (congestive) and diastolic (congestive) heart failure; N18.30 Chronic kidney disease, stage 3 unspecified; I48.91 Unspecified atrial fibrillation; I25.10 Atherosclerotic heart disease of native coronary artery without angina pectoris; I42.8 Other cardiomyopathies; J44.9 Chronic obstructive pulmonary disease, unspecified; E11.51 Type 2 diabetes mellitus with diabetic peripheral angiopathy without gangrene; E78.5 Hyperlipidemia, unspecified; E03.9 Hypothyroidism, unspecified; G89.4 Chronic pain syndrome; F41.9 Anxiety disorder, unspecified; E66.01 Morbid (severe) obesity due to excess calories; Z68.34 Body mass index [BMI] 34.0-34.9, adult; Z79.01 Long term (current) use of anticoagulants; Z79.02 Long term (current) use of antithrombotics/antiplatelets; Z79.899 Other long term (current) drug therapy; Z87.891 Personal history of nicotine dependence; Z85.46 Personal history of malignant neoplasm of prostate; Z95.810 Presence of automatic (implantable) cardiac defibrillator; Z86.73 Personal history of transient ischemic attack (TIA), and cerebral infarction without residual deficits
CPT/HCPCS: 96365; 96366; G0463; J1642; J2260

== ENCOUNTER → 2021-06-20 | Outpatient (CLI) | payer MEDICARE, MEDICAID ==
[2021-06-20] VITALS (11 sets, daily range): BP systolic 106–134; BP diastolic 62–86
[~2021-06-20] MED LIST changes: -IVABRADINE 5 MG TAB ONE; -IVABRADINE 5 MG TAB PO ONE
== END | disposition home or self-care (01) ==
LOC: CHF HDHVI 08:39
PROVIDERS: ATTEND Internal Medicine Cardiovascular Disease
DX: I13.0 Hypertensive heart and chronic kidney disease with heart failure and stage 1 through stage 4 chronic kidney disease, or unspecified chronic kidney disease (principal); E11.22 Type 2 diabetes mellitus with diabetic chronic kidney disease; I50.42 Chronic combined systolic (congestive) and diastolic (congestive) heart failure; N18.30 Chronic kidney disease, stage 3 unspecified; I25.10 Atherosclerotic heart disease of native coronary artery without angina pectoris; I48.91 Unspecified atrial fibrillation; I42.8 Other cardiomyopathies; J44.9 Chronic obstructive pulmonary disease, unspecified; E11.51 Type 2 diabetes mellitus with diabetic peripheral angiopathy without gangrene; E78.5 Hyperlipidemia, unspecified; E03.9 Hypothyroidism, unspecified; G89.4 Chronic pain syndrome; F41.9 Anxiety disorder, unspecified; E66.01 Morbid (severe) obesity due to excess calories; Z68.34 Body mass index [BMI] 34.0-34.9, adult; Z79.01 Long term (current) use of anticoagulants; Z79.899 Other long term (current) drug therapy; Z87.891 Personal history of nicotine dependence; Z85.46 Personal history of malignant neoplasm of prostate; Z95.810 Presence of automatic (implantable) cardiac defibrillator; Z86.73 Personal history of transient ischemic attack (TIA), and cerebral infarction without residual deficits
CPT/HCPCS: 96365; 96366; G0463; J1642; J2260

== ENCOUNTER → 2021-07-09 | Outpatient (CLI) | payer MEDICARE, MEDICAID ==
[2021-07-09] VITALS (11 sets, daily range): BP systolic 104–132; BP diastolic 64–89
[2021-07-09 12:56] LABS: Potassium 3.8 mmol/L (3.5-5.1)
== END | disposition home or self-care (01) ==
LOC: CHF HDHVI 08:46
PROVIDERS: ATTEND Internal Medicine Cardiovascular Disease
DX: I13.0 Hypertensive heart and chronic kidney disease with heart failure and stage 1 through stage 4 chronic kidney disease, or unspecified chronic kidney disease (principal); E11.22 Type 2 diabetes mellitus with diabetic chronic kidney disease; I50.23 Acute on chronic systolic (congestive) heart failure; N18.30 Chronic kidney disease, stage 3 unspecified; F41.9 Anxiety disorder, unspecified; I25.10 Atherosclerotic heart disease of native coronary artery without angina pectoris; E78.5 Hyperlipidemia, unspecified; E03.9 Hypothyroidism, unspecified; E11.51 Type 2 diabetes mellitus with diabetic peripheral angiopathy without gangrene; I48.91 Unspecified atrial fibrillation; J44.9 Chronic obstructive pulmonary disease, unspecified; Z79.01 Long term (current) use of anticoagulants; Z79.899 Other long term (current) drug therapy; Z95.810 Presence of automatic (implantable) cardiac defibrillator; Z87.891 Personal history of nicotine dependence
CPT/HCPCS: 36415; 82565; 83880; 84132; 84520; 96365; 96366; G0463; J1642; J2260

== ENCOUNTER → 2021-08-13 | Outpatient (CLI) | payer MEDICARE, MEDICAID ==
[2021-08-13] VITALS (11 sets, daily range): BP systolic 96–132; BP diastolic 52–73
== END | disposition home or self-care (01) ==
LOC: CHF HDHVI 09:06
PROVIDERS: ATTEND Internal Medicine Cardiovascular Disease
DX: I13.0 Hypertensive heart and chronic kidney disease with heart failure and stage 1 through stage 4 chronic kidney disease, or unspecified chronic kidney disease (principal); E11.22 Type 2 diabetes mellitus with diabetic chronic kidney disease; I50.42 Chronic combined systolic (congestive) and diastolic (congestive) heart failure; N18.30 Chronic kidney disease, stage 3 unspecified; I25.10 Atherosclerotic heart disease of native coronary artery without angina pectoris; I25.5 Ischemic cardiomyopathy; I48.91 Unspecified atrial fibrillation; E78.5 Hyperlipidemia, unspecified; E03.9 Hypothyroidism, unspecified; E11.51 Type 2 diabetes mellitus with diabetic peripheral angiopathy without gangrene; Z79.01 Long term (current) use of anticoagulants; Z79.899 Other long term (current) drug therapy; Z87.891 Personal history of nicotine dependence; Z95.810 Presence of automatic (implantable) cardiac defibrillator; Z95.5 Presence of coronary angioplasty implant and graft; Z86.73 Personal history of transient ischemic attack (TIA), and cerebral infarction without residual deficits; Z85.46 Personal history of malignant neoplasm of prostate
CPT/HCPCS: 36415; 82565; 83880; 84132; 84520; 96365; 96366; G0463; J1642; J2260

== ENCOUNTER → 2021-08-20 | Outpatient (CLI) | payer MEDICARE, MEDICAID ==
[2021-08-20] VITALS (11 sets, daily range): BP systolic 98–138; BP diastolic 47–80
[~2021-08-20] MED LIST changes: +FUROSEMIDE 20 MG/2 ML VIAL IV ONE; +FUROSEMIDE 20 MG/2 ML VIAL ONE; +FUROSEMIDE 40 MG/4 ML VIAL ONE; +POTASSIUM CHL 10 Meq TABLET PO ONE; +POTASSIUM CHL 20 Meq TABLET PO ONE
[2021-08-20 12:10] LABS: Basophils # (auto) 0 10 ^3/uL (0-0.2); Eosinophils # (auto) 0.1 10 ^3/uL (0-0.8); Eosinophils % (auto) 1.3 % (0.0-7.0); Mean Corpuscular Hgb Conc. 30.7 g/dL (32.0-36.0); Nucleated Red Blood Cells % 0.7 %
[2021-08-20 12:12] LABS: Basophils % (auto) 0.4 % (0.0-2.0); Hematocrit 42.5 % (41.0-53.0); Hemoglobin 13.1 g/dL (13.5-17.5); Lymphocytes # (auto) 1.5 10 ^3/uL (0.4-5.4); Lymphocytes % (auto) 20.7 % (10.0-50.0); Monocytes # (auto) 0.8 10 ^3/uL (0-1.3); Monocytes % (auto) 11.5 % (0.0-12.0); Neutrophils # (auto) 4.7 10 ^3/uL (1.6-8.6); Neutrophils % (auto) 66.1 % (37.0-80.0); White Blood Cell 7.1 10^3/uL (4.4-10.8)
[2021-08-20 12:15] LABS: BUN/Creatinine Ratio 12.1; Calcium 8.5 mg/dL (8.5-10.1); Magnesium 2.8 mg/dL (1.6-2.6)
[2021-08-20 12:16] LABS: Mean Corpuscular Hemoglobin 22.1 pg (28.0-32.0); Red Cell Distribution Width 19.6 % (11.8-14.3)
== END | disposition home or self-care (01) ==
LOC: CHF HDHVI 09:09
PROVIDERS: ATTEND Internal Medicine Cardiovascular Disease
DX: I13.0 Hypertensive heart and chronic kidney disease with heart failure and stage 1 through stage 4 chronic kidney disease, or unspecified chronic kidney disease (principal); E11.22 Type 2 diabetes mellitus with diabetic chronic kidney disease; I50.42 Chronic combined systolic (congestive) and diastolic (congestive) heart failure; N18.30 Chronic kidney disease, stage 3 unspecified; I25.10 Atherosclerotic heart disease of native coronary artery without angina pectoris; I25.2 Old myocardial infarction; I48.91 Unspecified atrial fibrillation; J44.9 Chronic obstructive pulmonary disease, unspecified; E11.51 Type 2 diabetes mellitus with diabetic peripheral angiopathy without gangrene; E78.5 Hyperlipidemia, unspecified; E03.9 Hypothyroidism, unspecified; F41.9 Anxiety disorder, unspecified; E66.01 Morbid (severe) obesity due to excess calories; Z68.34 Body mass index [BMI] 34.0-34.9, adult; Z79.02 Long term (current) use of antithrombotics/antiplatelets; Z79.01 Long term (current) use of anticoagulants; Z79.899 Other long term (current) drug therapy; Z87.891 Personal history of nicotine dependence; Z95.5 Presence of coronary angioplasty implant and graft; Z95.810 Presence of automatic (implantable) cardiac defibrillator; Z86.73 Personal history of transient ischemic attack (TIA), and cerebral infarction without residual deficits
CPT/HCPCS: 36415; 80048; 83735; 83880; 85025; 96365; 96366; 96375; G0463; J1642; J1940; J2260

== ENCOUNTER → 2021-08-22 | Outpatient (CLI) | payer MEDICARE, MEDICAID ==
[2021-08-22] VITALS (9 sets, daily range): BP systolic 99–127; BP diastolic 58–74
[~2021-08-22] MED LIST changes: +CYANOCOBALAMIN (B-12) 1000 MCG/1 ML VIAL IM ONE; +CYANOCOBALAMIN (B-12) 1000 MCG/1 ML VIAL ONE; -FUROSEMIDE 20 MG/2 ML VIAL IV ONE; -FUROSEMIDE 20 MG/2 ML VIAL ONE; -FUROSEMIDE 40 MG/4 ML VIAL ONE; -POTASSIUM CHL 10 Meq TABLET PO ONE; -POTASSIUM CHL 20 Meq TABLET PO ONE; +TESTOSTERONE CYPIONATE 200 MG/ML 1ML VIAL IM ONE
== END | disposition home or self-care (01) ==
LOC: CHF HDHVI 09:01
PROVIDERS: ATTEND Internal Medicine Cardiovascular Disease
DX: I13.0 Hypertensive heart and chronic kidney disease with heart failure and stage 1 through stage 4 chronic kidney disease, or unspecified chronic kidney disease (principal); E11.22 Type 2 diabetes mellitus with diabetic chronic kidney disease; I50.42 Chronic combined systolic (congestive) and diastolic (congestive) heart failure; N18.30 Chronic kidney disease, stage 3 unspecified; E29.1 Testicular hypofunction; I25.10 Atherosclerotic heart disease of native coronary artery without angina pectoris; I25.2 Old myocardial infarction; I48.91 Unspecified atrial fibrillation; J44.9 Chronic obstructive pulmonary disease, unspecified; E11.51 Type 2 diabetes mellitus with diabetic peripheral angiopathy without gangrene; E03.9 Hypothyroidism, unspecified; F41.9 Anxiety disorder, unspecified; E66.01 Morbid (severe) obesity due to excess calories; Z68.34 Body mass index [BMI] 34.0-34.9, adult; Z79.01 Long term (current) use of anticoagulants; Z79.02 Long term (current) use of antithrombotics/antiplatelets; Z79.899 Other long term (current) drug therapy; Z87.891 Personal history of nicotine dependence; Z95.810 Presence of automatic (implantable) cardiac defibrillator; Z95.5 Presence of coronary angioplasty implant and graft; Z86.73 Personal history of transient ischemic attack (TIA), and cerebral infarction without residual deficits; Z85.46 Personal history of malignant neoplasm of prostate
CPT/HCPCS: 96365; 96366; 96372; G0463; J1071; J1642; J2260; J3420

== ENCOUNTER → 2021-08-27 | Outpatient (CLI) | payer MEDICARE, MEDICAID ==
[2021-08-27] VITALS (11 sets, daily range): BP systolic 107–125; BP diastolic 60–86
[~2021-08-27] MED LIST changes: -CYANOCOBALAMIN (B-12) 1000 MCG/1 ML VIAL IM ONE; -CYANOCOBALAMIN (B-12) 1000 MCG/1 ML VIAL ONE; -TESTOSTERONE CYPIONATE 200 MG/ML 1ML VIAL IM ONE
[2021-08-27 11:12] LABS: Potassium 4.1 mmol/L (3.5-5.1)
== END | disposition home or self-care (01) ==
LOC: CHF HDHVI 09:12
PROVIDERS: ATTEND Internal Medicine Cardiovascular Disease
DX: R06.02 Shortness of breath (principal); E11.22 Type 2 diabetes mellitus with diabetic chronic kidney disease; I13.0 Hypertensive heart and chronic kidney disease with heart failure and stage 1 through stage 4 chronic kidney disease, or unspecified chronic kidney disease; N18.30 Chronic kidney disease, stage 3 unspecified; I50.42 Chronic combined systolic (congestive) and diastolic (congestive) heart failure; F41.9 Anxiety disorder, unspecified; I25.10 Atherosclerotic heart disease of native coronary artery without angina pectoris; J44.9 Chronic obstructive pulmonary disease, unspecified; E03.9 Hypothyroidism, unspecified; I25.2 Old myocardial infarction; E29.1 Testicular hypofunction; R53.83 Other fatigue; E11.51 Type 2 diabetes mellitus with diabetic peripheral angiopathy without gangrene; I48.91 Unspecified atrial fibrillation; E66.01 Morbid (severe) obesity due to excess calories; Z68.34 Body mass index [BMI] 34.0-34.9, adult; Z85.46 Personal history of malignant neoplasm of prostate; Z79.01 Long term (current) use of anticoagulants; Z79.02 Long term (current) use of antithrombotics/antiplatelets; Z79.899 Other long term (current) drug therapy; Z87.891 Personal history of nicotine dependence; Z95.810 Presence of automatic (implantable) cardiac defibrillator; Z95.5 Presence of coronary angioplasty implant and graft
CPT/HCPCS: 36415; 82565; 83880; 84132; 84520; 96365; 96366; G0463; J1642; J2260

== ENCOUNTER → 2021-08-29 | Outpatient (CLI) | payer MEDICARE, MEDICAID ==
[2021-08-29] VITALS (11 sets, daily range): BP systolic 90–123; BP diastolic 44–77
== END | disposition home or self-care (01) ==
LOC: CHF HDHVI 08:52
PROVIDERS: ATTEND Internal Medicine Cardiovascular Disease
DX: I13.0 Hypertensive heart and chronic kidney disease with heart failure and stage 1 through stage 4 chronic kidney disease, or unspecified chronic kidney disease (principal); E11.22 Type 2 diabetes mellitus with diabetic chronic kidney disease; I50.42 Chronic combined systolic (congestive) and diastolic (congestive) heart failure; N18.30 Chronic kidney disease, stage 3 unspecified; I25.10 Atherosclerotic heart disease of native coronary artery without angina pectoris; I25.2 Old myocardial infarction; I48.91 Unspecified atrial fibrillation; J44.9 Chronic obstructive pulmonary disease, unspecified; E11.51 Type 2 diabetes mellitus with diabetic peripheral angiopathy without gangrene; E03.9 Hypothyroidism, unspecified; E78.5 Hyperlipidemia, unspecified; G89.29 Other chronic pain; E66.01 Morbid (severe) obesity due to excess calories; Z68.34 Body mass index [BMI] 34.0-34.9, adult; Z79.01 Long term (current) use of anticoagulants; Z79.02 Long term (current) use of antithrombotics/antiplatelets; Z79.899 Other long term (current) drug therapy; Z85.46 Personal history of malignant neoplasm of prostate; Z87.891 Personal history of nicotine dependence; Z95.810 Presence of automatic (implantable) cardiac defibrillator; Z95.5 Presence of coronary angioplasty implant and graft
CPT/HCPCS: 96365; 96366; G0463; J1642; J2260

== ENCOUNTER → 2021-09-03 | Outpatient (CLI) | payer MEDICARE, MEDICAID ==
[~2021-09-03] VITALS: Ht 30.5 cm; Wt 128.9 kg
[2021-09-03] VITALS (9 sets, daily range): BP systolic 96–129; BP diastolic 53–81
[~2021-09-03] MED LIST changes: +POTASSIUM EFFERVESENT TAB 25 MEQ ONE; +POTASSIUM EFFERVESENT TAB 25 MEQ PO ONE
[2021-09-03 11:13] LABS: Basophils # (auto) 0 10 ^3/uL (0-0.2); Basophils % (auto) 0.5 % (0.0-2.0); Eosinophils # (auto) 0.1 10 ^3/uL (0-0.8); Hemoglobin 13.3 g/dL (13.5-17.5); Lymphocytes # (auto) 1.1 10 ^3/uL (0.4-5.4); Neutrophils # (auto) 5.1 10 ^3/uL (1.6-8.6); Red Cell Distribution Width 19.7 % (11.8-14.3)
[2021-09-03 11:15] LABS: Eosinophils % (auto) 1.3 % (0.0-7.0); Hematocrit 44.3 % (41.0-53.0); Lymphocytes % (auto) 15.4 % (10.0-50.0); Mean Corpuscular Hemoglobin 21.6 pg (28.0-32.0); Mean Corpuscular Volume 72.1 fL (80.0-100.0); Monocytes # (auto) 0.8 10 ^3/uL (0-1.3); Monocytes % (auto) 10.9 % (0.0-12.0); Neutrophils % (auto) 71.9 % (37.0-80.0); Nucleated Red Blood Cells % 0.7 %; Red Blood Cells 6.14 10^6/uL (4.5-5.90); White Blood Cell 7.1 10^3/uL (4.4-10.8)
[2021-09-03 11:20] LABS: Albumin 3.2 g/dL (3.4-5.0); Calcium 8.4 mg/dL (8.5-10.1); Magnesium 2.7 mg/dL (1.6-2.6); Potassium 3.9 mmol/L (3.5-5.1)
[2021-09-03 11:25] LABS: BUN/Creatinine Ratio 12.2; Bilirubin, Total 0.4 mg/dL (0.2-1.0); Total Protein 7.7 g/dL (6.4-8.2)
== END | disposition home or self-care (01) ==
LOC: CHF HDHVI 09:06
PROVIDERS: ATTEND Internal Medicine Cardiovascular Disease
DX: I13.0 Hypertensive heart and chronic kidney disease with heart failure and stage 1 through stage 4 chronic kidney disease, or unspecified chronic kidney disease (principal); E11.22 Type 2 diabetes mellitus with diabetic chronic kidney disease; I50.42 Chronic combined systolic (congestive) and diastolic (congestive) heart failure; N18.30 Chronic kidney disease, stage 3 unspecified; I25.10 Atherosclerotic heart disease of native coronary artery without angina pectoris; I25.5 Ischemic cardiomyopathy; I25.2 Old myocardial infarction; I48.91 Unspecified atrial fibrillation; J44.9 Chronic obstructive pulmonary disease, unspecified; E11.40 Type 2 diabetes mellitus with diabetic neuropathy, unspecified; E78.5 Hyperlipidemia, unspecified; E03.9 Hypothyroidism, unspecified; G89.4 Chronic pain syndrome; F41.9 Anxiety disorder, unspecified; E66.01 Morbid (severe) obesity due to excess calories; Z68.34 Body mass index [BMI] 34.0-34.9, adult; Z79.01 Long term (current) use of anticoagulants; Z79.02 Long term (current) use of antithrombotics/antiplatelets; Z79.899 Other long term (current) drug therapy; Z87.891 Personal history of nicotine dependence; Z85.46 Personal history of malignant neoplasm of prostate; Z95.810 Presence of automatic (implantable) cardiac defibrillator; Z95.5 Presence of coronary angioplasty implant and graft; Z86.73 Personal history of transient ischemic attack (TIA), and cerebral infarction without residual deficits
CPT/HCPCS: 36415; 80053; 80162; 83735; 83880; 85025; 96365; 96366; G0463; J1642; J2260

== ENCOUNTER → 2021-09-05 | Outpatient (CLI) | payer MEDICARE, MEDICAID ==
[2021-09-05] VITALS (11 sets, daily range): BP systolic 108–131; BP diastolic 61–81
[~2021-09-05] MED LIST changes: +CATHFLO ACTIVASE (ALTEPLASE) 2 MG VIAL IV ONE; -POTASSIUM EFFERVESENT TAB 25 MEQ ONE; -POTASSIUM EFFERVESENT TAB 25 MEQ PO ONE; +TESTOSTERONE CYPIONATE 200 MG/ML 1ML VIAL IM ONE
== END | disposition home or self-care (01) ==
LOC: CHF HDHVI 08:56
PROVIDERS: ATTEND Internal Medicine Cardiovascular Disease
DX: I13.0 Hypertensive heart and chronic kidney disease with heart failure and stage 1 through stage 4 chronic kidney disease, or unspecified chronic kidney disease (principal); E11.22 Type 2 diabetes mellitus with diabetic chronic kidney disease; I50.42 Chronic combined systolic (congestive) and diastolic (congestive) heart failure; N18.30 Chronic kidney disease, stage 3 unspecified; E29.1 Testicular hypofunction; I25.10 Atherosclerotic heart disease of native coronary artery without angina pectoris; I25.5 Ischemic cardiomyopathy; I25.2 Old myocardial infarction; I48.91 Unspecified atrial fibrillation; J44.9 Chronic obstructive pulmonary disease, unspecified; E11.40 Type 2 diabetes mellitus with diabetic neuropathy, unspecified; E03.9 Hypothyroidism, unspecified; G89.4 Chronic pain syndrome; F41.9 Anxiety disorder, unspecified; E66.01 Morbid (severe) obesity due to excess calories; Z68.34 Body mass index [BMI] 34.0-34.9, adult; Z79.01 Long term (current) use of anticoagulants; Z79.02 Long term (current) use of antithrombotics/antiplatelets; Z79.899 Other long term (current) drug therapy; Z87.891 Personal history of nicotine dependence; Z85.46 Personal history of malignant neoplasm of prostate; Z95.810 Presence of automatic (implantable) cardiac defibrillator; Z95.5 Presence of coronary angioplasty implant and graft; Z86.73 Personal history of transient ischemic attack (TIA), and cerebral infarction without residual deficits
CPT/HCPCS: 96365; 96366; 96372; G0463; J1071; J1642; J2260

== ENCOUNTER → 2021-09-19 | Outpatient (CLI) | payer MEDICARE, MEDICAID ==
[2021-09-19] VITALS (12 sets, daily range): BP systolic 98–131; BP diastolic 50–95
[~2021-09-19] MED LIST changes: -CATHFLO ACTIVASE (ALTEPLASE) 2 MG VIAL IV ONE; +FUROSEMIDE 100 MG/10ML VIAL IV ONE; +FUROSEMIDE 20 MG/2 ML VIAL ONE; +FUROSEMIDE INJECTION 10 ML ONE; +POTASSIUM CHL 20 Meq TABLET PO ONE; -TESTOSTERONE CYPIONATE 200 MG/ML 1ML VIAL IM ONE
== END | disposition home or self-care (01) ==
LOC: CHF HDHVI 09:09
PROVIDERS: ATTEND Internal Medicine Cardiovascular Disease
DX: I13.0 Hypertensive heart and chronic kidney disease with heart failure and stage 1 through stage 4 chronic kidney disease, or unspecified chronic kidney disease (principal); E11.22 Type 2 diabetes mellitus with diabetic chronic kidney disease; N18.30 Chronic kidney disease, stage 3 unspecified; I50.42 Chronic combined systolic (congestive) and diastolic (congestive) heart failure; I25.10 Atherosclerotic heart disease of native coronary artery without angina pectoris; F41.9 Anxiety disorder, unspecified; J44.9 Chronic obstructive pulmonary disease, unspecified; E78.5 Hyperlipidemia, unspecified; E03.9 Hypothyroidism, unspecified; I25.2 Old myocardial infarction; E11.40 Type 2 diabetes mellitus with diabetic neuropathy, unspecified; E11.51 Type 2 diabetes mellitus with diabetic peripheral angiopathy without gangrene; Z79.899 Other long term (current) drug therapy; Z79.01 Long term (current) use of anticoagulants; Z79.02 Long term (current) use of antithrombotics/antiplatelets; Z85.46 Personal history of malignant neoplasm of prostate; Z87.891 Personal history of nicotine dependence; Z86.73 Personal history of transient ischemic attack (TIA), and cerebral infarction without residual deficits
CPT/HCPCS: 96365; 96366; 96375; G0463; J1642; J1940; J2260

== ENCOUNTER → 2021-09-24 | Outpatient (CLI) | payer MEDICARE, MEDICAID ==
[2021-09-24] VITALS (11 sets, daily range): BP systolic 113–137; BP diastolic 57–85
[~2021-09-24] MED LIST changes: +CYANOCOBALAMIN (B-12) 1000 MCG/1 ML VIAL IM ONE; +CYANOCOBALAMIN (B-12) 1000 MCG/1 ML VIAL ONE; -FUROSEMIDE 100 MG/10ML VIAL IV ONE; -FUROSEMIDE 20 MG/2 ML VIAL ONE; -FUROSEMIDE INJECTION 10 ML ONE; -POTASSIUM CHL 20 Meq TABLET PO ONE
[2021-09-24 11:29] LABS: Basophils # (auto) 0 10 ^3/uL (0-0.2); Eosinophils # (auto) 0.1 10 ^3/uL (0-0.8); Hemoglobin 12.4 g/dL (13.5-17.5); Monocytes # (auto) 0.7 10 ^3/uL (0-1.3); Neutrophils # (auto) 4.8 10 ^3/uL (1.6-8.6)
[2021-09-24 11:32] LABS: Basophils % (auto) 0.6 % (0.0-2.0); Hematocrit 40.6 % (41.0-53.0); Lymphocytes # (auto) 1.1 10 ^3/uL (0.4-5.4); Lymphocytes % (auto) 16.4 % (10.0-50.0); Mean Corpuscular Hemoglobin 21.3 pg (28.0-32.0); Mean Corpuscular Hgb Conc. 30.5 g/dL (32.0-36.0); Mean Corpuscular Volume 69.7 fL (80.0-100.0); Monocytes % (auto) 10.3 % (0.0-12.0); Neutrophils % (auto) 71.7 % (37.0-80.0); Nucleated Red Blood Cells % 0.8 %; Red Blood Cells 5.83 10^6/uL (4.5-5.90); Red Cell Distribution Width 19.9 % (11.8-14.3); White Blood Cell 6.7 10^3/uL (4.4-10.8)
[2021-09-24 11:42] LABS: Magnesium 2.1 mg/dL (1.6-2.6); Potassium 3.7 mmol/L (3.5-5.1)
[2021-09-24 11:44] LABS: Calcium 8.9 mg/dL (8.5-10.1)
== END | disposition home or self-care (01) ==
LOC: CHF HDHVI 10:07
PROVIDERS: ATTEND Internal Medicine Cardiovascular Disease
DX: I13.0 Hypertensive heart and chronic kidney disease with heart failure and stage 1 through stage 4 chronic kidney disease, or unspecified chronic kidney disease (principal); E11.22 Type 2 diabetes mellitus with diabetic chronic kidney disease; I50.42 Chronic combined systolic (congestive) and diastolic (congestive) heart failure; N18.30 Chronic kidney disease, stage 3 unspecified; I25.5 Ischemic cardiomyopathy; I25.10 Atherosclerotic heart disease of native coronary artery without angina pectoris; I25.2 Old myocardial infarction; I48.91 Unspecified atrial fibrillation; J44.9 Chronic obstructive pulmonary disease, unspecified; E11.40 Type 2 diabetes mellitus with diabetic neuropathy, unspecified; E11.51 Type 2 diabetes mellitus with diabetic peripheral angiopathy without gangrene; E78.5 Hyperlipidemia, unspecified; E03.9 Hypothyroidism, unspecified; F41.9 Anxiety disorder, unspecified; E66.01 Morbid (severe) obesity due to excess calories; Z68.34 Body mass index [BMI] 34.0-34.9, adult; Z79.01 Long term (current) use of anticoagulants; Z79.02 Long term (current) use of antithrombotics/antiplatelets; Z79.899 Other long term (current) drug therapy; Z87.891 Personal history of nicotine dependence; Z85.46 Personal history of malignant neoplasm of prostate; Z95.810 Presence of automatic (implantable) cardiac defibrillator; Z95.5 Presence of coronary angioplasty implant and graft; Z86.73 Personal history of transient ischemic attack (TIA), and cerebral infarction without residual deficits
CPT/HCPCS: 36415; 80048; 83735; 83880; 85025; 96365; 96366; 96372; G0463; J1642; J2260; J3420

== ENCOUNTER → 2021-10-03 | Outpatient (CLI) | payer MEDICARE, MEDICAID ==
[~2021-10-03] VITALS: Ht 30.5 cm; Wt 132.0 kg
[2021-10-03] VITALS (12 sets, daily range): BP systolic 106–141; BP diastolic 56–87
[~2021-10-03] MED LIST changes: -CYANOCOBALAMIN (B-12) 1000 MCG/1 ML VIAL IM ONE; -CYANOCOBALAMIN (B-12) 1000 MCG/1 ML VIAL ONE; +FUROSEMIDE 100 MG/10ML VIAL IV ONE; +FUROSEMIDE 40 MG/4 ML VIAL ONE; +POTASSIUM CHL 10 Meq TABLET PO ONE; +POTASSIUM CHL 20 Meq TABLET PO ONE; +metOLazone 5 MG TAB ONE; +metOLazone 5 MG TAB PO ONE
[2021-10-03 10:03] LABS: Potassium 3.9 mmol/L (3.5-5.1)
== END | disposition home or self-care (01) ==
LOC: CHF HDHVI 08:12
PROVIDERS: ATTEND Internal Medicine Cardiovascular Disease
DX: I13.0 Hypertensive heart and chronic kidney disease with heart failure and stage 1 through stage 4 chronic kidney disease, or unspecified chronic kidney disease (principal); E11.22 Type 2 diabetes mellitus with diabetic chronic kidney disease; I50.42 Chronic combined systolic (congestive) and diastolic (congestive) heart failure; N18.30 Chronic kidney disease, stage 3 unspecified; I25.5 Ischemic cardiomyopathy; I25.10 Atherosclerotic heart disease of native coronary artery without angina pectoris; I25.2 Old myocardial infarction; I48.91 Unspecified atrial fibrillation; J44.9 Chronic obstructive pulmonary disease, unspecified; E11.40 Type 2 diabetes mellitus with diabetic neuropathy, unspecified; E11.51 Type 2 diabetes mellitus with diabetic peripheral angiopathy without gangrene; E78.5 Hyperlipidemia, unspecified; E03.9 Hypothyroidism, unspecified; G89.4 Chronic pain syndrome; F41.9 Anxiety disorder, unspecified; E66.01 Morbid (severe) obesity due to excess calories; Z68.34 Body mass index [BMI] 34.0-34.9, adult; Z79.01 Long term (current) use of anticoagulants; Z79.02 Long term (current) use of antithrombotics/antiplatelets; Z79.899 Other long term (current) drug therapy; Z87.891 Personal history of nicotine dependence; Z85.46 Personal history of malignant neoplasm of prostate; Z95.5 Presence of coronary angioplasty implant and graft; Z95.810 Presence of automatic (implantable) cardiac defibrillator; Z86.73 Personal history of transient ischemic attack (TIA), and cerebral infarction without residual deficits
CPT/HCPCS: 36415; 82565; 83880; 84132; 84520; 96365; 96366; 96375; G0463; J1642; J1940; J2260

== ENCOUNTER → 2021-10-08 | Outpatient (CLI) | payer MEDICARE, MEDICAID ==
[2021-10-08] VITALS (13 sets, daily range): BP systolic 92–128; BP diastolic 56–74
[~2021-10-08] VITALS: Ht 30.5 cm; Wt 126.2 kg
[2021-10-08 11:31] LABS: Basophils # (auto) 0 10 ^3/uL (0-0.2); Eosinophils # (auto) 0.1 10 ^3/uL (0-0.8); Hemoglobin 12.7 g/dL (13.5-17.5); Neutrophils # (auto) 4.5 10 ^3/uL (1.6-8.6); White Blood Cell 6.2 10^3/uL (4.4-10.8)
[2021-10-08 11:34] LABS: Basophils % (auto) 0.7 % (0.0-2.0); Eosinophils % (auto) 1.2 % (0.0-7.0); Lymphocytes # (auto) 1.1 10 ^3/uL (0.4-5.4); Lymphocytes % (auto) 17.3 % (10.0-50.0); Mean Corpuscular Hemoglobin 20.7 pg (28.0-32.0); Mean Corpuscular Hgb Conc. 30.2 g/dL (32.0-36.0); Mean Corpuscular Volume 68.5 fL (80.0-100.0); Monocytes # (auto) 0.5 10 ^3/uL (0-1.3); Monocytes % (auto) 8.5 % (0.0-12.0); Neutrophils % (auto) 72.3 % (37.0-80.0); Nucleated Red Blood Cells % 0.2 %; Red Blood Cells 6.14 10^6/uL (4.5-5.90); Red Cell Distribution Width 20.8 % (11.8-14.3)
[2021-10-08 12:08] LABS: Potassium 3.5 mmol/L (3.5-5.1)
[2021-10-08 12:13] LABS: BUN/Creatinine Ratio 17.8; Calcium 8.6 mg/dL (8.5-10.1); Magnesium 2.9 mg/dL (1.6-2.6)
== END | disposition home or self-care (01) ==
LOC: CHF HDHVI 09:27
PROVIDERS: ATTEND Internal Medicine Cardiovascular Disease
DX: I13.0 Hypertensive heart and chronic kidney disease with heart failure and stage 1 through stage 4 chronic kidney disease, or unspecified chronic kidney disease (principal); E11.22 Type 2 diabetes mellitus with diabetic chronic kidney disease; I50.42 Chronic combined systolic (congestive) and diastolic (congestive) heart failure; N18.30 Chronic kidney disease, stage 3 unspecified; I25.10 Atherosclerotic heart disease of native coronary artery without angina pectoris; I25.5 Ischemic cardiomyopathy; I25.2 Old myocardial infarction; I48.91 Unspecified atrial fibrillation; J44.9 Chronic obstructive pulmonary disease, unspecified; E11.40 Type 2 diabetes mellitus with diabetic neuropathy, unspecified; E11.51 Type 2 diabetes mellitus with diabetic peripheral angiopathy without gangrene; E78.5 Hyperlipidemia, unspecified; E78.00 Pure hypercholesterolemia, unspecified; E03.9 Hypothyroidism, unspecified; F41.9 Anxiety disorder, unspecified; E66.01 Morbid (severe) obesity due to excess calories; Z68.34 Body mass index [BMI] 34.0-34.9, adult; Z79.01 Long term (current) use of anticoagulants; Z79.02 Long term (current) use of antithrombotics/antiplatelets; Z79.899 Other long term (current) drug therapy; Z87.891 Personal history of nicotine dependence; Z85.46 Personal history of malignant neoplasm of prostate; Z95.5 Presence of coronary angioplasty implant and graft; Z95.810 Presence of automatic (implantable) cardiac defibrillator; Z86.73 Personal history of transient ischemic attack (TIA), and cerebral infarction without residual deficits
CPT/HCPCS: 36415; 80048; 83735; 83880; 85025; 96365; 96366; 96375; G0463; J1642; J1940; J2260

== ENCOUNTER → 2021-10-10 | Outpatient (CLI) | payer MEDICARE, MEDICAID ==
[2021-10-10] VITALS (9 sets, daily range): BP systolic 99–132; BP diastolic 67–82
[~2021-10-10] MED LIST changes: -FUROSEMIDE 100 MG/10ML VIAL IV ONE; -FUROSEMIDE 40 MG/4 ML VIAL ONE; -POTASSIUM CHL 10 Meq TABLET PO ONE; -POTASSIUM CHL 20 Meq TABLET PO ONE; +POTASSIUM EFFERVESENT TAB 25 MEQ ONE; +POTASSIUM EFFERVESENT TAB 25 MEQ PO ONE; -metOLazone 5 MG TAB ONE; -metOLazone 5 MG TAB PO ONE
[2021-10-10 11:41] LABS: Potassium 3.3 mmol/L (3.5-5.1)
== END | disposition home or self-care (01) ==
LOC: CHF HDHVI 09:14
PROVIDERS: ATTEND Internal Medicine Cardiovascular Disease
DX: I13.0 Hypertensive heart and chronic kidney disease with heart failure and stage 1 through stage 4 chronic kidney disease, or unspecified chronic kidney disease (principal); E11.22 Type 2 diabetes mellitus with diabetic chronic kidney disease; I50.42 Chronic combined systolic (congestive) and diastolic (congestive) heart failure; N18.30 Chronic kidney disease, stage 3 unspecified; I25.10 Atherosclerotic heart disease of native coronary artery without angina pectoris; I25.5 Ischemic cardiomyopathy; I25.2 Old myocardial infarction; I48.91 Unspecified atrial fibrillation; J44.9 Chronic obstructive pulmonary disease, unspecified; E11.40 Type 2 diabetes mellitus with diabetic neuropathy, unspecified; E11.51 Type 2 diabetes mellitus with diabetic peripheral angiopathy without gangrene; E78.00 Pure hypercholesterolemia, unspecified; E78.5 Hyperlipidemia, unspecified; E03.9 Hypothyroidism, unspecified; F41.9 Anxiety disorder, unspecified; Z79.01 Long term (current) use of anticoagulants; Z79.02 Long term (current) use of antithrombotics/antiplatelets; Z79.899 Other long term (current) drug therapy; Z87.891 Personal history of nicotine dependence; Z85.46 Personal history of malignant neoplasm of prostate; Z95.5 Presence of coronary angioplasty implant and graft; Z95.810 Presence of automatic (implantable) cardiac defibrillator; Z86.73 Personal history of transient ischemic attack (TIA), and cerebral infarction without residual deficits
CPT/HCPCS: 36415; 82565; 83880; 84132; 84520; 96365; 96366; G0463; J1642; J2260

== ENCOUNTER → 2021-10-15 | Outpatient (CLI) | payer MEDICARE, MEDICAID ==
[2021-10-15] VITALS (11 sets, daily range): BP systolic 93–117; BP diastolic 52–79
[~2021-10-15] MED LIST changes: +BUMETANIDE 1mg/4ml VIAL (0.25mg/ml) ONE; +BUMETANIDE 2.5mg/10ml (0.25 mg/ml) INJ IV ONE
[2021-10-15 09:37] LABS: BUN/Creatinine Ratio 17.1; Calcium 8.1 mg/dL (8.5-10.1); Potassium 3.1 mmol/L (3.5-5.1)
[2021-10-15 09:56] LABS: Basophils # (auto) 0 10 ^3/uL (0-0.2); Eosinophils # (auto) 0.1 10 ^3/uL (0-0.8); Hemoglobin 12.9 g/dL (13.5-17.5); Lymphocytes # (auto) 1.3 10 ^3/uL (0.4-5.4); Monocytes # (auto) 0.7 10 ^3/uL (0-1.3); Neutrophils # (auto) 5.1 10 ^3/uL (1.6-8.6); White Blood Cell 7.2 10^3/uL (4.4-10.8)
[2021-10-15 10:01] LABS: Basophils % (auto) 0.5 % (0.0-2.0); Eosinophils % (auto) 1.1 % (0.0-7.0); Lymphocytes % (auto) 17.4 % (10.0-50.0); Mean Corpuscular Hemoglobin 20.7 pg (28.0-32.0); Mean Corpuscular Hgb Conc. 29.9 g/dL (32.0-36.0); Mean Corpuscular Volume 69.2 fL (80.0-100.0); Nucleated Red Blood Cells % 0.2 %; Red Blood Cells 6.22 10^6/uL (4.5-5.90)
[2021-10-15 10:02] LABS: Red Cell Distribution Width 21.2 % (11.8-14.3)
== END | disposition home or self-care (01) ==
LOC: CHF HDHVI 08:17
PROVIDERS: ATTEND Internal Medicine Cardiovascular Disease
DX: I13.0 Hypertensive heart and chronic kidney disease with heart failure and stage 1 through stage 4 chronic kidney disease, or unspecified chronic kidney disease (principal); E11.22 Type 2 diabetes mellitus with diabetic chronic kidney disease; I50.42 Chronic combined systolic (congestive) and diastolic (congestive) heart failure; N18.30 Chronic kidney disease, stage 3 unspecified; I25.10 Atherosclerotic heart disease of native coronary artery without angina pectoris; I25.5 Ischemic cardiomyopathy; I25.2 Old myocardial infarction; I48.91 Unspecified atrial fibrillation; J44.9 Chronic obstructive pulmonary disease, unspecified; E11.51 Type 2 diabetes mellitus with diabetic peripheral angiopathy without gangrene; E11.40 Type 2 diabetes mellitus with diabetic neuropathy, unspecified; E78.00 Pure hypercholesterolemia, unspecified; E78.5 Hyperlipidemia, unspecified; E03.9 Hypothyroidism, unspecified; F41.9 Anxiety disorder, unspecified; E66.01 Morbid (severe) obesity due to excess calories; Z68.34 Body mass index [BMI] 34.0-34.9, adult; Z79.01 Long term (current) use of anticoagulants; Z79.02 Long term (current) use of antithrombotics/antiplatelets; Z79.899 Other long term (current) drug therapy; Z87.891 Personal history of nicotine dependence; Z85.46 Personal history of malignant neoplasm of prostate; Z95.5 Presence of coronary angioplasty implant and graft; Z95.810 Presence of automatic (implantable) cardiac defibrillator; Z86.73 Personal history of transient ischemic attack (TIA), and cerebral infarction without residual deficits
CPT/HCPCS: 36415; 80048; 83880; 85025; 96365; 96366; 96375; G0463; J1642; J2260; J3490

== ENCOUNTER → 2021-10-29 | Outpatient (CLI) | payer MEDICARE, MEDICAID ==
[2021-10-29] VITALS (11 sets, daily range): BP systolic 91–131; BP diastolic 62–82
[~2021-10-29] MED LIST changes: -BUMETANIDE 1mg/4ml VIAL (0.25mg/ml) ONE; -BUMETANIDE 2.5mg/10ml (0.25 mg/ml) INJ IV ONE; +CYANOCOBALAMIN (B-12) 1000 MCG/1 ML VIAL IM ONE; +CYANOCOBALAMIN (B-12) 1000 MCG/1 ML VIAL ONE; +FUROSEMIDE 100 MG/10ML VIAL IV ONE; +FUROSEMIDE 20 MG/2 ML VIAL ONE; +FUROSEMIDE 40 MG/4 ML VIAL ONE; +POTASSIUM CHL 20 Meq TABLET PO ONE; -POTASSIUM EFFERVESENT TAB 25 MEQ ONE; -POTASSIUM EFFERVESENT TAB 25 MEQ PO ONE; +TESTOSTERONE CYPIONATE 200 MG/ML 1ML VIAL IM ONE; +metOLazone 5 MG TAB ONE; +metOLazone 5 MG TAB PO ONE
== END | disposition home or self-care (01) ==
LOC: CHF HDHVI 08:18
PROVIDERS: ATTEND Internal Medicine Cardiovascular Disease
DX: I13.0 Hypertensive heart and chronic kidney disease with heart failure and stage 1 through stage 4 chronic kidney disease, or unspecified chronic kidney disease (principal); E11.22 Type 2 diabetes mellitus with diabetic chronic kidney disease; I50.42 Chronic combined systolic (congestive) and diastolic (congestive) heart failure; N18.30 Chronic kidney disease, stage 3 unspecified; E29.1 Testicular hypofunction; I25.10 Atherosclerotic heart disease of native coronary artery without angina pectoris; I25.2 Old myocardial infarction; I48.91 Unspecified atrial fibrillation; I25.5 Ischemic cardiomyopathy; J44.9 Chronic obstructive pulmonary disease, unspecified; E03.9 Hypothyroidism, unspecified; E11.40 Type 2 diabetes mellitus with diabetic neuropathy, unspecified; E11.51 Type 2 diabetes mellitus with diabetic peripheral angiopathy without gangrene; F41.9 Anxiety disorder, unspecified; E66.01 Morbid (severe) obesity due to excess calories; Z68.34 Body mass index [BMI] 34.0-34.9, adult; Z79.899 Other long term (current) drug therapy; Z79.01 Long term (current) use of anticoagulants; Z79.02 Long term (current) use of antithrombotics/antiplatelets; Z85.46 Personal history of malignant neoplasm of prostate; Z87.891 Personal history of nicotine dependence; Z95.810 Presence of automatic (implantable) cardiac defibrillator; Z95.5 Presence of coronary angioplasty implant and graft; Z86.73 Personal history of transient ischemic attack (TIA), and cerebral infarction without residual deficits
CPT/HCPCS: 96365; 96366; 96372; 96375; G0463; J1071; J1642; J1940; J2260; J3420

== ENCOUNTER → 2021-11-05 | Outpatient (CLI) | payer MEDICARE, MEDICAID ==
[2021-11-05] VITALS (9 sets, daily range): BP systolic 95–131; BP diastolic 57–83
[~2021-11-05] MED LIST changes: -CYANOCOBALAMIN (B-12) 1000 MCG/1 ML VIAL IM ONE; -CYANOCOBALAMIN (B-12) 1000 MCG/1 ML VIAL ONE; -FUROSEMIDE 100 MG/10ML VIAL IV ONE; -FUROSEMIDE 20 MG/2 ML VIAL ONE; -FUROSEMIDE 40 MG/4 ML VIAL ONE; -POTASSIUM CHL 20 Meq TABLET PO ONE; -TESTOSTERONE CYPIONATE 200 MG/ML 1ML VIAL IM ONE; -metOLazone 5 MG TAB ONE; -metOLazone 5 MG TAB PO ONE
[2021-11-05 11:29] LABS: Basophils # (auto) 0 10 ^3/uL (0-0.2); Basophils % (auto) 0.4 % (0.0-2.0); Eosinophils # (auto) 0.1 10 ^3/uL (0-0.8); Eosinophils % (auto) 1.3 % (0.0-7.0); Hematocrit 44.7 % (41.0-53.0); Hemoglobin 13.5 g/dL (13.5-17.5); Lymphocytes # (auto) 1.3 10 ^3/uL (0.4-5.4); Lymphocytes % (auto) 21.1 % (10.0-50.0); Mean Corpuscular Hgb Conc. 30.2 g/dL (32.0-36.0); Monocytes # (auto) 0.6 10 ^3/uL (0-1.3); Monocytes % (auto) 9.7 % (0.0-12.0); Neutrophils # (auto) 4.2 10 ^3/uL (1.6-8.6); Neutrophils % (auto) 67.5 % (37.0-80.0); Nucleated Red Blood Cells % 0.6 %; Red Blood Cells 6.44 10^6/uL (4.5-5.90); White Blood Cell 6.2 10^3/uL (4.4-10.8)
[2021-11-05 11:32] LABS: Mean Corpuscular Volume 69.5 fL (80.0-100.0); Red Cell Distribution Width 22.9 % (11.8-14.3)
[2021-11-05 11:44] LABS: Potassium 3.8 mmol/L (3.5-5.1)
[2021-11-05 11:51] LABS: BUN/Creatinine Ratio 14.1; Calcium 9.2 mg/dL (8.5-10.1); Magnesium 2.5 mg/dL (1.6-2.6)
== END | disposition home or self-care (01) ==
LOC: CHF HDHVI 08:18
PROVIDERS: ATTEND Internal Medicine Cardiovascular Disease
DX: I13.0 Hypertensive heart and chronic kidney disease with heart failure and stage 1 through stage 4 chronic kidney disease, or unspecified chronic kidney disease (principal); E11.22 Type 2 diabetes mellitus with diabetic chronic kidney disease; I50.42 Chronic combined systolic (congestive) and diastolic (congestive) heart failure; N18.30 Chronic kidney disease, stage 3 unspecified; I25.10 Atherosclerotic heart disease of native coronary artery without angina pectoris; I25.5 Ischemic cardiomyopathy; I25.2 Old myocardial infarction; I48.91 Unspecified atrial fibrillation; J44.9 Chronic obstructive pulmonary disease, unspecified; E11.51 Type 2 diabetes mellitus with diabetic peripheral angiopathy without gangrene; E11.40 Type 2 diabetes mellitus with diabetic neuropathy, unspecified; E78.5 Hyperlipidemia, unspecified; E78.00 Pure hypercholesterolemia, unspecified; E03.9 Hypothyroidism, unspecified; G89.4 Chronic pain syndrome; F41.9 Anxiety disorder, unspecified; E66.01 Morbid (severe) obesity due to excess calories; Z68.34 Body mass index [BMI] 34.0-34.9, adult; Z79.01 Long term (current) use of anticoagulants; Z79.02 Long term (current) use of antithrombotics/antiplatelets; Z79.899 Other long term (current) drug therapy; Z87.891 Personal history of nicotine dependence; Z85.46 Personal history of malignant neoplasm of prostate; Z95.5 Presence of coronary angioplasty implant and graft; Z95.810 Presence of automatic (implantable) cardiac defibrillator; Z86.73 Personal history of transient ischemic attack (TIA), and cerebral infarction without residual deficits
CPT/HCPCS: 36415; 80048; 83735; 83880; 85025; 96365; 96366; G0463; J1642; J2260

== ENCOUNTER → 2021-11-08 | Outpatient (CLI) | payer MEDICARE, MEDICAID ==
[2021-11-08] VITALS (10 sets, daily range): BP systolic 104–136; BP diastolic 56–85
[~2021-11-08] MED LIST changes: +FUROSEMIDE 40 MG/4 ML VIAL IV ONE; +FUROSEMIDE 40 MG/4 ML VIAL ONE; +POTASSIUM CHL 10 Meq TABLET PO ONE; +POTASSIUM CHL 20 Meq TABLET PO ONE; +metOLazone 5 MG TAB ONE; +metOLazone 5 MG TAB PO ONE
== END | disposition home or self-care (01) ==
LOC: CHF HDHVI 08:01
PROVIDERS: ATTEND Internal Medicine Cardiovascular Disease
DX: I13.0 Hypertensive heart and chronic kidney disease with heart failure and stage 1 through stage 4 chronic kidney disease, or unspecified chronic kidney disease (principal); E11.22 Type 2 diabetes mellitus with diabetic chronic kidney disease; I50.42 Chronic combined systolic (congestive) and diastolic (congestive) heart failure; N18.30 Chronic kidney disease, stage 3 unspecified; I25.10 Atherosclerotic heart disease of native coronary artery without angina pectoris; I25.5 Ischemic cardiomyopathy; I25.2 Old myocardial infarction; I48.91 Unspecified atrial fibrillation; J44.9 Chronic obstructive pulmonary disease, unspecified; E11.40 Type 2 diabetes mellitus with diabetic neuropathy, unspecified; E11.51 Type 2 diabetes mellitus with diabetic peripheral angiopathy without gangrene; E78.5 Hyperlipidemia, unspecified; E78.00 Pure hypercholesterolemia, unspecified; E03.9 Hypothyroidism, unspecified; F41.9 Anxiety disorder, unspecified; G89.4 Chronic pain syndrome; E66.01 Morbid (severe) obesity due to excess calories; Z68.34 Body mass index [BMI] 34.0-34.9, adult; Z79.01 Long term (current) use of anticoagulants; Z79.02 Long term (current) use of antithrombotics/antiplatelets; Z79.899 Other long term (current) drug therapy; Z85.46 Personal history of malignant neoplasm of prostate; Z87.891 Personal history of nicotine dependence; Z95.5 Presence of coronary angioplasty implant and graft; Z95.810 Presence of automatic (implantable) cardiac defibrillator; Z86.73 Personal history of transient ischemic attack (TIA), and cerebral infarction without residual deficits
CPT/HCPCS: 36415; 82565; 83880; 84132; 84520; 96365; 96366; 96375; 96376; G0463; J1642; J1940; J2260

== ENCOUNTER → 2021-11-12 | Outpatient (CLI) | payer MEDICARE, MEDICAID ==
[2021-11-12] VITALS (11 sets, daily range): BP systolic 104–119; BP diastolic 54–73
[~2021-11-12] MED LIST changes: -FUROSEMIDE 40 MG/4 ML VIAL IV ONE; -FUROSEMIDE 40 MG/4 ML VIAL ONE; -POTASSIUM CHL 10 Meq TABLET PO ONE; -POTASSIUM CHL 20 Meq TABLET PO ONE; -metOLazone 5 MG TAB ONE; -metOLazone 5 MG TAB PO ONE
[2021-11-12 12:13] LABS: Potassium 3.7 mmol/L (3.5-5.1)
== END | disposition home or self-care (01) ==
LOC: CHF HDHVI 07:56
PROVIDERS: ATTEND Internal Medicine Cardiovascular Disease
DX: I13.0 Hypertensive heart and chronic kidney disease with heart failure and stage 1 through stage 4 chronic kidney disease, or unspecified chronic kidney disease (principal); E11.22 Type 2 diabetes mellitus with diabetic chronic kidney disease; I50.42 Chronic combined systolic (congestive) and diastolic (congestive) heart failure; N18.30 Chronic kidney disease, stage 3 unspecified; I25.10 Atherosclerotic heart disease of native coronary artery without angina pectoris; I25.5 Ischemic cardiomyopathy; I25.2 Old myocardial infarction; I48.91 Unspecified atrial fibrillation; J44.9 Chronic obstructive pulmonary disease, unspecified; E11.40 Type 2 diabetes mellitus with diabetic neuropathy, unspecified; E11.51 Type 2 diabetes mellitus with diabetic peripheral angiopathy without gangrene; E78.5 Hyperlipidemia, unspecified; E78.00 Pure hypercholesterolemia, unspecified; E03.9 Hypothyroidism, unspecified; G89.4 Chronic pain syndrome; F41.9 Anxiety disorder, unspecified; E66.01 Morbid (severe) obesity due to excess calories; Z68.34 Body mass index [BMI] 34.0-34.9, adult; Z79.01 Long term (current) use of anticoagulants; Z79.02 Long term (current) use of antithrombotics/antiplatelets; Z79.899 Other long term (current) drug therapy; Z87.891 Personal history of nicotine dependence; Z85.46 Personal history of malignant neoplasm of prostate; Z95.5 Presence of coronary angioplasty implant and graft; Z95.810 Presence of automatic (implantable) cardiac defibrillator; Z86.73 Personal history of transient ischemic attack (TIA), and cerebral infarction without residual deficits
CPT/HCPCS: 36415; 82565; 83880; 84132; 84520; 96365; 96366; G0463; J1642; J2260

== ENCOUNTER → 2021-11-21 | Outpatient (CLI) | payer MEDICARE, MEDICAID ==
[2021-11-21] VITALS (11 sets, daily range): BP systolic 90–117; BP diastolic 47–79
[~2021-11-21] MED LIST changes: +POTASSIUM EFFERVESENT TAB 25 MEQ ONE; +POTASSIUM EFFERVESENT TAB 25 MEQ PO ONE
[2021-11-21 11:52] LABS: Magnesium 2.3 mg/dL (1.6-2.6); Potassium 3.6 mmol/L (3.5-5.1)
== END | disposition home or self-care (01) ==
LOC: CHF HDHVI 07:58
PROVIDERS: ATTEND Internal Medicine Cardiovascular Disease
DX: I13.0 Hypertensive heart and chronic kidney disease with heart failure and stage 1 through stage 4 chronic kidney disease, or unspecified chronic kidney disease (principal); E11.22 Type 2 diabetes mellitus with diabetic chronic kidney disease; I50.42 Chronic combined systolic (congestive) and diastolic (congestive) heart failure; N18.30 Chronic kidney disease, stage 3 unspecified; I25.10 Atherosclerotic heart disease of native coronary artery without angina pectoris; J44.9 Chronic obstructive pulmonary disease, unspecified; I25.2 Old myocardial infarction; E11.51 Type 2 diabetes mellitus with diabetic peripheral angiopathy without gangrene; E11.40 Type 2 diabetes mellitus with diabetic neuropathy, unspecified; E78.00 Pure hypercholesterolemia, unspecified; E78.5 Hyperlipidemia, unspecified; E66.01 Morbid (severe) obesity due to excess calories; I48.91 Unspecified atrial fibrillation; F41.9 Anxiety disorder, unspecified; Z68.34 Body mass index [BMI] 34.0-34.9, adult; Z79.01 Long term (current) use of anticoagulants; Z79.02 Long term (current) use of antithrombotics/antiplatelets; Z79.899 Other long term (current) drug therapy; Z85.46 Personal history of malignant neoplasm of prostate; Z87.891 Personal history of nicotine dependence; Z86.73 Personal history of transient ischemic attack (TIA), and cerebral infarction without residual deficits
CPT/HCPCS: 36415; 71046; 82565; 83735; 84132; 84520; 96365; 96366; G0463; J1642; J2260

== ENCOUNTER → 2021-11-26 | Outpatient (CLI) | payer MEDICARE, MEDICAID ==
[2021-11-26] VITALS (11 sets, daily range): BP systolic 103–118; BP diastolic 56–74
[~2021-11-26] VITALS: Ht 30.5 cm; Wt 127.9 kg
[~2021-11-26] MED LIST changes: +CYANOCOBALAMIN (B-12) 1000 MCG/1 ML VIAL IM ONE; +CYANOCOBALAMIN (B-12) 1000 MCG/1 ML VIAL ONE; +FUROSEMIDE 40 MG/4 ML VIAL IV ONE; +FUROSEMIDE 40 MG/4 ML VIAL ONE; +POTASSIUM CHL 10 Meq TABLET PO ONE; -POTASSIUM EFFERVESENT TAB 25 MEQ ONE; -POTASSIUM EFFERVESENT TAB 25 MEQ PO ONE; +TESTOSTERONE CYPIONATE 200 MG/ML 1ML VIAL IM ONE; +metOLazone 5 MG TAB ONE; +metOLazone 5 MG TAB PO ONE
[2021-11-26 11:58] LABS: Basophils # (auto) 0 10 ^3/uL (0-0.2); Eosinophils # (auto) 0.1 10 ^3/uL (0-0.8); Eosinophils % (auto) 1.1 % (0.0-7.0); Lymphocytes # (auto) 1.1 10 ^3/uL (0.4-5.4); Mean Corpuscular Hemoglobin 21.2 pg (28.0-32.0); Monocytes % (auto) 10.4 % (0.0-12.0)
[2021-11-26 12:01] LABS: Basophils % (auto) 0.5 % (0.0-2.0); Hematocrit 41.2 % (41.0-53.0); Hemoglobin 12.4 g/dL (13.5-17.5); Lymphocytes % (auto) 15.8 % (10.0-50.0); Mean Corpuscular Hgb Conc. 30.2 g/dL (32.0-36.0); Mean Corpuscular Volume 70.3 fL (80.0-100.0); Monocytes # (auto) 0.7 10 ^3/uL (0-1.3); Neutrophils # (auto) 5.2 10 ^3/uL (1.6-8.6); Neutrophils % (auto) 72.2 % (37.0-80.0); Nucleated Red Blood Cells % 0.5 %; Red Blood Cells 5.86 10^6/uL (4.5-5.90); White Blood Cell 7.2 10^3/uL (4.4-10.8)
[2021-11-26 12:06] LABS: Red Cell Distribution Width 23.9 % (11.8-14.3)
[2021-11-26 12:22] LABS: Potassium 3.9 mmol/L (3.5-5.1)
[2021-11-26 12:28] LABS: Albumin 3.3 g/dL (3.4-5.0); BUN/Creatinine Ratio 18.7; Calcium 9.4 mg/dL (8.5-10.1); Magnesium 2.3 mg/dL (1.6-2.6)
[2021-11-26 12:31] LABS: Bilirubin, Total 0.6 mg/dL (0.2-1.0); Total Protein 7.9 g/dL (6.4-8.2)
== END | disposition home or self-care (01) ==
LOC: CHF HDHVI 08:16
PROVIDERS: ATTEND Internal Medicine Cardiovascular Disease
DX: I13.0 Hypertensive heart and chronic kidney disease with heart failure and stage 1 through stage 4 chronic kidney disease, or unspecified chronic kidney disease (principal); E11.22 Type 2 diabetes mellitus with diabetic chronic kidney disease; N18.30 Chronic kidney disease, stage 3 unspecified; I50.42 Chronic combined systolic (congestive) and diastolic (congestive) heart failure; I25.10 Atherosclerotic heart disease of native coronary artery without angina pectoris; J44.9 Chronic obstructive pulmonary disease, unspecified; I25.2 Old myocardial infarction; I48.91 Unspecified atrial fibrillation; F41.9 Anxiety disorder, unspecified; E78.5 Hyperlipidemia, unspecified; E78.00 Pure hypercholesterolemia, unspecified; E11.40 Type 2 diabetes mellitus with diabetic neuropathy, unspecified; E11.51 Type 2 diabetes mellitus with diabetic peripheral angiopathy without gangrene; E66.01 Morbid (severe) obesity due to excess calories; Z68.34 Body mass index [BMI] 34.0-34.9, adult; Z79.01 Long term (current) use of anticoagulants; Z79.899 Other long term (current) drug therapy; Z79.02 Long term (current) use of antithrombotics/antiplatelets; Z95.810 Presence of automatic (implantable) cardiac defibrillator; Z95.5 Presence of coronary angioplasty implant and graft; Z85.46 Personal history of malignant neoplasm of prostate; Z87.891 Personal history of nicotine dependence; Z86.73 Personal history of transient ischemic attack (TIA), and cerebral infarction without residual deficits
CPT/HCPCS: 36415; 80053; 83735; 83880; 85025; 96365; 96366; 96372; 96375; G0463; J1071; J1642; J1940; J2260; J3420

== ENCOUNTER → 2021-11-28 | Outpatient (CLI) | payer MEDICARE, MEDICAID ==
[~2021-11-28] VITALS: Ht 30.5 cm; Wt 128.9 kg
[2021-11-28] VITALS (11 sets, daily range): BP systolic 102–131; BP diastolic 59–77
[~2021-11-28] MED LIST changes: -CYANOCOBALAMIN (B-12) 1000 MCG/1 ML VIAL IM ONE; -CYANOCOBALAMIN (B-12) 1000 MCG/1 ML VIAL ONE; +FUROSEMIDE 100 MG/10ML VIAL IV ONE; +FUROSEMIDE 20 MG/2 ML VIAL ONE; -FUROSEMIDE 40 MG/4 ML VIAL IV ONE; -TESTOSTERONE CYPIONATE 200 MG/ML 1ML VIAL IM ONE
== END | disposition home or self-care (01) ==
LOC: CHF HDHVI 08:13
PROVIDERS: ATTEND Internal Medicine Cardiovascular Disease
DX: I13.0 Hypertensive heart and chronic kidney disease with heart failure and stage 1 through stage 4 chronic kidney disease, or unspecified chronic kidney disease (principal); E11.22 Type 2 diabetes mellitus with diabetic chronic kidney disease; I50.42 Chronic combined systolic (congestive) and diastolic (congestive) heart failure; N18.30 Chronic kidney disease, stage 3 unspecified; E87.6 Hypokalemia; I25.5 Ischemic cardiomyopathy; I25.10 Atherosclerotic heart disease of native coronary artery without angina pectoris; I25.2 Old myocardial infarction; I48.91 Unspecified atrial fibrillation; J44.9 Chronic obstructive pulmonary disease, unspecified; E11.40 Type 2 diabetes mellitus with diabetic neuropathy, unspecified; E11.51 Type 2 diabetes mellitus with diabetic peripheral angiopathy without gangrene; E78.5 Hyperlipidemia, unspecified; E78.00 Pure hypercholesterolemia, unspecified; E03.9 Hypothyroidism, unspecified; F41.9 Anxiety disorder, unspecified; G89.4 Chronic pain syndrome; E66.01 Morbid (severe) obesity due to excess calories; Z68.34 Body mass index [BMI] 34.0-34.9, adult; Z79.01 Long term (current) use of anticoagulants; Z79.02 Long term (current) use of antithrombotics/antiplatelets; Z79.899 Other long term (current) drug therapy; Z87.891 Personal history of nicotine dependence; Z85.46 Personal history of malignant neoplasm of prostate; Z95.810 Presence of automatic (implantable) cardiac defibrillator; Z95.5 Presence of coronary angioplasty implant and graft; Z86.73 Personal history of transient ischemic attack (TIA), and cerebral infarction without residual deficits
CPT/HCPCS: 96365; 96366; 96375; G0463; J1642; J1940; J2260

== ENCOUNTER → 2021-11-30 | Outpatient (CLI) | payer MEDICARE, MEDICAID ==
[2021-11-30] VITALS (9 sets, daily range): BP systolic 103–140; BP diastolic 68–84
[~2021-11-30] MED LIST changes: -FUROSEMIDE 100 MG/10ML VIAL IV ONE; -FUROSEMIDE 20 MG/2 ML VIAL ONE; -FUROSEMIDE 40 MG/4 ML VIAL ONE; +FUROSEMIDE INJECTION 10 ML ONE; +FUROSEMIDE INJECTION 100 MG in D5W 5% 100 ML IV ONE; -MILRINONE 20MG/100ML 100 ML IV ONE
[2021-11-30 10:11] LABS: Potassium 3.7 mmol/L (3.5-5.1)
== END | disposition home or self-care (01) ==
LOC: CHF HDHVI 08:57
PROVIDERS: ATTEND Internal Medicine Cardiovascular Disease
DX: I13.0 Hypertensive heart and chronic kidney disease with heart failure and stage 1 through stage 4 chronic kidney disease, or unspecified chronic kidney disease (principal); E11.22 Type 2 diabetes mellitus with diabetic chronic kidney disease; I50.42 Chronic combined systolic (congestive) and diastolic (congestive) heart failure; N18.30 Chronic kidney disease, stage 3 unspecified; I25.10 Atherosclerotic heart disease of native coronary artery without angina pectoris; I25.2 Old myocardial infarction; J44.9 Chronic obstructive pulmonary disease, unspecified; F41.9 Anxiety disorder, unspecified; E11.51 Type 2 diabetes mellitus with diabetic peripheral angiopathy without gangrene; E11.40 Type 2 diabetes mellitus with diabetic neuropathy, unspecified; I48.91 Unspecified atrial fibrillation; E78.00 Pure hypercholesterolemia, unspecified; E78.5 Hyperlipidemia, unspecified; E87.6 Hypokalemia; E66.01 Morbid (severe) obesity due to excess calories; Z68.34 Body mass index [BMI] 34.0-34.9, adult; Z79.899 Other long term (current) drug therapy; Z79.01 Long term (current) use of anticoagulants; Z79.02 Long term (current) use of antithrombotics/antiplatelets; Z85.46 Personal history of malignant neoplasm of prostate; Z87.891 Personal history of nicotine dependence; Z86.73 Personal history of transient ischemic attack (TIA), and cerebral infarction without residual deficits; Z95.810 Presence of automatic (implantable) cardiac defibrillator; Z95.5 Presence of coronary angioplasty implant and graft
CPT/HCPCS: 36415; 82565; 83880; 84132; 84520; 96365; 96366; G0463; J1642; J1940; J7060

== ENCOUNTER 2021-12-08 23:58 | Inpatient (IN) | payer MEDICARE, MEDICAID ==
[~2021-12-08] VITALS: Ht 167.6 cm; Wt 122.0 kg
[~2021-12-08 23:58] MED LIST changes: -FUROSEMIDE INJECTION 10 ML ONE; -FUROSEMIDE INJECTION 100 MG in D5W 5% 100 ML IV ONE; -POTASSIUM CHL 10 Meq TABLET PO ONE; -metOLazone 5 MG TAB ONE; -metOLazone 5 MG TAB PO ONE
[2021-12-09] VITALS (52 sets, daily range): BP systolic 86–223; BP diastolic 54–157
[2021-12-09] MEDS ORDERED: FUROSEMIDE 100 MG/10ML VIAL IV ONE (01:15)
[2021-12-09 01:59] LABS: Basophils # (auto) 0 10 ^3/uL (0-0.2); Monocytes # (auto) 0.7 10 ^3/uL (0-1.3); Monocytes % (auto) 9.1 % (0.0-12.0)
[2021-12-09 02:01] LABS: Basophils % (auto) 0.6 % (0.0-2.0); Eosinophils # (auto) 0 10 ^3/uL (0-0.8); Eosinophils % (auto) 0.6 % (0.0-7.0); Hematocrit 41.6 % (41.0-53.0); Hemoglobin 12.5 g/dL (13.5-17.5); Lymphocytes # (auto) 1.2 10 ^3/uL (0.4-5.4); Lymphocytes % (auto) 15.8 % (10.0-50.0); Mean Corpuscular Hemoglobin 21.1 pg (28.0-32.0); Mean Corpuscular Volume 70.6 fL (80.0-100.0); Neutrophils # (auto) 5.8 10 ^3/uL (1.6-8.6); Neutrophils % (auto) 73.9 % (37.0-80.0); Red Blood Cells 5.89 10^6/uL (4.5-5.90); White Blood Cell 7.9 10^3/uL (4.4-10.8)
[2021-12-09 02:17] LABS: INR 1.21 (0.9-1.15); Partial Thromboplastin Time 44.4 sec (23.6-33.0)
[2021-12-09 02:26] LABS: Albumin 3.4 g/dL (3.4-5.0); BUN/Creatinine Ratio 20.4; Potassium 4.6 mmol/L (3.5-5.1)
[2021-12-09 02:31] LABS: Bilirubin, Total 0.4 mg/dL (0.2-1.0); Total Protein 8.1 g/dL (6.4-8.2)
[2021-12-09] MEDS ORDERED: MILRINONE 4 MG in SODIUM CHL 0.9% 50 ML IV ONE ×2 (03:00→04:45)
[2021-12-09] MEDS: LORazepam 2MG/ML-1ML VIAL IM ONE ×2 (03:08→03:11)
[2021-12-09] MEDS ORDERED: LORazepam 2MG/ML-1ML VIAL IV ONE ×2 (03:15→05:00)
[2021-12-09] MEDS ORDERED: FUROSEMIDE 40 MG/4 ML VIAL IV ONE ×2 (03:15→20:45)
[2021-12-09] MEDS ORDERED: NITROGLYCERIN 50MG/250ML 250 ML IV ONE (04:31)
[2021-12-09] MEDS ORDERED: HEPARIN DRIP/D5W 100UNITS/ML 250 ML IV SCH (05:15)
[2021-12-09] MEDS ORDERED: MORPHINE SULFATE INJECTION 2 MG/ML SYRG IV PRN (06:15)
[2021-12-09] MEDS ORDERED: MORPHINE SULFATE 4 MG/ML SYR/VIAL IV PRN (06:15)
[2021-12-09] MEDS ORDERED: NITROGLYCERIN 0.4 MG SL TAB SL PRN ×2 (06:15)
[2021-12-09] MEDS ORDERED: ATORVASTATIN 20 MG TAB PO ONE (06:15)
[2021-12-09 06:37] LABS: Cholesterol 129 mg/dL (< 200)
[2021-12-09 06:39] LABS: HDL Cholesterol 27 mg/dL (40-59); LDL Cholesterol 94 mg/dL (< 100); Triglycerides 69 mg/dL (< 150)
[2021-12-09] MEDS ORDERED: SUCCINYLCHOLINE CHLORIDE 20 MG/ML 10ML VIAL IV ONE ×4 (07:21→08:30)
[2021-12-09] MEDS ORDERED: KETAMINE HCL 10 ML ONE (07:23)
[2021-12-09] MEDS ORDERED: KETAMINE 50mg/ML 10ml Vial (500mg/10ml) IV ONE (07:30)
[2021-12-09] MEDS ORDERED: MIDAZOLAM DRIP 50 mg/50mL 50 ML IV ONE (07:40)
[2021-12-09] MEDS: MIDAZOLAM DRIP 50 mg/50mL 50 ML IV SCH ×2 (07:50→20:32)
[2021-12-09] MEDS: fentaNYL Drip 2500mCg/250mlNS 250 ML IV SCH ×2 (08:15→20:33)
[2021-12-09] MEDS ORDERED: fentaNYL Drip 2500mCg/250mlNS 250 ML IV ONE (08:19)
[2021-12-09] MEDS ORDERED: MIDAZOLAM HCL 2MG/2ML 2ml VIAL (1mg/ml) IV ONE (08:30)
[2021-12-09] MEDS: PROPOFOL 100 ML IV SCH (10:00)
[2021-12-09] MEDS ORDERED: METOPROLOL SUCCINATE XL 50 MG TAB PO SCH (10:00)
[2021-12-09] MEDS ORDERED: CLOPIDOGREL BISULFATE 75 MG TAB PO SCH (10:00)
[2021-12-09] MEDS ORDERED: ASPirin 81 mg TAB PO SCH (10:00)
[2021-12-09] MEDS ORDERED: FUROSEMIDE 40 MG/4 ML VIAL IV SCH (10:00)
[2021-12-09] MEDS ORDERED: PANTOPRAZOLE 40 MG TAB PO SCH (10:00)
[2021-12-09 11:43] LABS: Eosinophils # (auto) 0 10 ^3/uL (0-0.8); Lymphocytes # (auto) 0.6 10 ^3/uL (0.4-5.4)
[2021-12-09 11:45] LABS: Basophils # (auto) 0 10 ^3/uL (0-0.2); Basophils % (auto) 0.1 % (0.0-2.0); Hematocrit 40.6 % (41.0-53.0); Hemoglobin 12.1 g/dL (13.5-17.5); Mean Corpuscular Hemoglobin 21.1 pg (28.0-32.0); Mean Corpuscular Hgb Conc. 29.9 g/dL (32.0-36.0); Mean Corpuscular Volume 70.5 fL (80.0-100.0); Neutrophils # (auto) 13.1 10 ^3/uL (1.6-8.6); Neutrophils % (auto) 88.9 % (37.0-80.0); Nucleated Red Blood Cells % 2.2 %; Red Blood Cells 5.75 10^6/uL (4.5-5.90); Red Cell Distribution Width 23.9 % (11.8-14.3); White Blood Cell 14.7 10^3/uL (4.4-10.8)
[2021-12-09] MEDS: MILRINONE 20MG/100ML 100 ML IV SCH ×3 (11:45→20:41)
[2021-12-09 11:49] LABS: INR 1.19 (0.9-1.15)
[2021-12-09] MEDS ORDERED: DOBUTamine 1000MCG/ML 250 ML IV ONE (11:51)
[2021-12-09 11:52] LABS: Albumin 3.3 g/dL (3.4-5.0); Calcium 8.4 mg/dL (8.5-10.1); Magnesium 2.7 mg/dL (1.6-2.6); Potassium 5.2 mmol/L (3.5-5.1)
[2021-12-09 11:58] LABS: BUN/Creatinine Ratio 16.3; Bilirubin, Total 0.5 mg/dL (0.2-1.0); Total Protein 8.3 g/dL (6.4-8.2)
[2021-12-09] MEDS ORDERED: DOBUTamine 1000MCG/ML 250 ML IV SCH ×2 (12:00→12:15)
[2021-12-09] MEDS ORDERED: NOREPINEPHRINE 8 MG/250ML KIT 250 ML IV ONE (12:06)
[2021-12-09] MEDS ORDERED: LIDOCAINE 2% (LOCAL ANESTH.) PF 5ml SDV ONE (12:38)
[2021-12-09] MEDS ORDERED: BACITRACIN TOP OINT 1 UD PKG TOP ONE ×2 (12:55→13:00)
[2021-12-09] MEDS ORDERED: LIDOCAINE 2%HCL (LOCAL ANESTH.) INJ 10ml MDV IJ ONE (13:00)
[2021-12-09] MEDS: AMIODARONE HCL 200 MG TAB PO SCH (15:36)
[2021-12-09] MEDS: FUROSEMIDE 40 MG/4 ML VIAL IV SCH (17:56)
[2021-12-09 18:56] LABS: Urine Bacteria FEW /hpf (None Seen); Urine Blood 3+ /uL (Negative); Urine Hyaline Cast MOD /lpf (0 - 2); Urine Mucus FEW (None Seen); Urine WBC 22 /hpf (0 - 3)
[2021-12-09 19:01] LABS: Protein, Urine 187.3 mg/dL (0.0-11.9); Sodium Urine < 5 mmol/L (40-220)
[2021-12-09 19:03] LABS: Creatinine, Urine 253 mg/dL (30.0-125.0)
[2021-12-09] MEDS: NOREPINEPHRINE 8 MG/250ML KIT 250 ML IV SCH (20:31)
[2021-12-09] MEDS ORDERED: WARFARIN SODIUM 2 MG TAB PO SCH (22:00)
[2021-12-09] MEDS: ATORVASTATIN 20 MG TAB PO SCH (22:27)
[2021-12-10] VITALS (102 sets, daily range): BP systolic 85–122; BP diastolic 39–79
[2021-12-10] MEDS: MIDAZOLAM DRIP 50 mg/50mL 50 ML IV SCH ×3 (00:39→21:23)
[2021-12-10] MEDS: PROPOFOL 100 ML IV SCH (01:41)
[2021-12-10] MEDS: MILRINONE 20MG/100ML 100 ML IV SCH ×4 (01:45→22:45)
[2021-12-10 04:12] LABS: Basophils # (auto) 0 10 ^3/uL (0-0.2); Eosinophils # (auto) 0 10 ^3/uL (0-0.8); Hemoglobin 11.9 g/dL (13.5-17.5); Mean Corpuscular Hemoglobin 21.4 pg (28.0-32.0); Monocytes # (auto) 1.7 10 ^3/uL (0-1.3); Red Blood Cells 5.57 10^6/uL (4.5-5.90)
[2021-12-10 04:16] LABS: Basophils % (auto) 0.3 % (0.0-2.0); Lymphocytes # (auto) 0.5 10 ^3/uL (0.4-5.4); Lymphocytes % (auto) 3.1 % (10.0-50.0); Mean Corpuscular Hgb Conc. 29.8 g/dL (32.0-36.0); Mean Corpuscular Volume 71.8 fL (80.0-100.0); Monocytes % (auto) 9.4 % (0.0-12.0); Neutrophils # (auto) 15.3 10 ^3/uL (1.6-8.6); Neutrophils % (auto) 87.2 % (37.0-80.0); Nucleated Red Blood Cells % 0.5 %; White Blood Cell 17.5 10^3/uL (4.4-10.8)
[2021-12-10 04:17] LABS: Red Cell Distribution Width 23.7 % (11.8-14.3)
[2021-12-10 04:29] LABS: Albumin 3.2 g/dL (3.4-5.0); Calcium 8.3 mg/dL (8.5-10.1); Magnesium 2.6 mg/dL (1.6-2.6)
[2021-12-10 04:50] LABS: BUN/Creatinine Ratio 19.1; Bilirubin, Total 0.6 mg/dL (0.2-1.0)
[2021-12-10 04:58] LABS: Potassium 5.8 mmol/L (3.5-5.1)
[2021-12-10] MEDS ORDERED: SODIUM ZIRCONIUM CYCL 10 GM PAK PO ONE (06:00)
[2021-12-10] MEDS: FUROSEMIDE 40 MG/4 ML VIAL IV SCH ×3 (06:04→18:54)
[2021-12-10] MEDS ORDERED: metOLazone 5 MG TAB PO ONE (09:30)
[2021-12-10] MEDS: PANTOPRAZOLE 40 MG/10 ML VIAL INJ IV SCH (10:43)
[2021-12-10] MEDS: AMIODARONE HCL 200 MG TAB PO SCH (10:44)
[2021-12-10] MEDS: SODIUM ZIRCONIUM CYCL 10 GM PAK PO SCH ×2 (15:27→21:58)
[2021-12-10] MEDS: NOREPINEPHRINE 8 MG/250ML KIT 250 ML IV SCH ×2 (17:00→19:00)
[2021-12-10] MEDS: ATORVASTATIN 20 MG TAB PO SCH (21:58)
[2021-12-11] VITALS (102 sets, daily range): BP systolic 84–138; BP diastolic 40–80
[2021-12-11] MEDS: fentaNYL Drip 2500mCg/250mlNS 250 ML IV SCH ×2 (01:11→18:08)
[2021-12-11 04:53] LABS: Basophils # (auto) 0 10 ^3/uL (0-0.2); Basophils % (auto) 0.3 % (0.0-2.0); Eosinophils # (auto) 0 10 ^3/uL (0-0.8); Lymphocytes # (auto) 0.6 10 ^3/uL (0.4-5.4); Lymphocytes % (auto) 4.8 % (10.0-50.0); Mean Corpuscular Hemoglobin 20.7 pg (28.0-32.0); Mean Corpuscular Hgb Conc. 29.8 g/dL (32.0-36.0); Mean Corpuscular Volume 69.5 fL (80.0-100.0); Monocytes # (auto) 1.3 10 ^3/uL (0-1.3); Monocytes % (auto) 10.3 % (0.0-12.0); Neutrophils # (auto) 10.6 10 ^3/uL (1.6-8.6); Neutrophils % (auto) 84.6 % (37.0-80.0); Nucleated Red Blood Cells % 0.3 %; Red Blood Cells 5.33 10^6/uL (4.5-5.90); Red Cell Distribution Width 22.6 % (11.8-14.3); White Blood Cell 12.5 10^3/uL (4.4-10.8)
[2021-12-11 05:13] LABS: BUN/Creatinine Ratio 23.8; Potassium 3.4 mmol/L (3.5-5.1)
[2021-12-11] MEDS: MILRINONE 20MG/100ML 100 ML IV SCH ×3 (05:45→18:01)
[2021-12-11] MEDS: SODIUM ZIRCONIUM CYCL 10 GM PAK PO SCH (06:00)
[2021-12-11] MEDS ORDERED: POTASSIUM CHL 20MEQ/100ML 100 ML IV ONE (06:15)
[2021-12-11] MEDS: FUROSEMIDE 40 MG/4 ML VIAL IV SCH ×2 (06:16→18:10)
[2021-12-11] MEDS: MIDAZOLAM DRIP 50 mg/50mL 50 ML IV SCH ×2 (09:05→18:09)
[2021-12-11] MEDS: PROPOFOL 100 ML IV SCH (09:45)
[2021-12-11] MEDS: PANTOPRAZOLE 40 MG/10 ML VIAL INJ IV SCH (10:18)
[2021-12-11] MEDS ORDERED: AMIODARONE HCL 200 MG TAB ONE (12:02)
[2021-12-11] MEDS: AMIODARONE HCL 200 MG TAB PO SCH (12:07)
[2021-12-11] MEDS: POTASSIUM CHL 20MEQ/100ML 100 ML IV SCH ×2 (18:30→20:40)
[2021-12-11] MEDS: ATORVASTATIN 20 MG TAB PO SCH (22:24)
[2021-12-12] VITALS (106 sets, daily range): BP systolic 85–136; BP diastolic 43–87
[2021-12-12] MEDS: MIDAZOLAM DRIP 50 mg/50mL 50 ML IV SCH ×5 (01:03→16:46)
[2021-12-12] MEDS: MILRINONE 20MG/100ML 100 ML IV SCH ×4 (02:59→23:45)
[2021-12-12 04:52] LABS: Calcium 9.2 mg/dL (8.5-10.1); Potassium 3.4 mmol/L (3.5-5.1)
[2021-12-12] MEDS: PROPOFOL 100 ML IV SCH ×2 (05:13→13:25)
[2021-12-12] MEDS ORDERED: POTASSIUM CHL 20MEQ/100ML 100 ML IV ONE (05:15)
[2021-12-12] MEDS: FUROSEMIDE 40 MG/4 ML VIAL IV SCH (05:39)
[2021-12-12] MEDS: fentaNYL Drip 2500mCg/250mlNS 250 ML IV SCH (06:28)
[2021-12-12] MEDS: PANTOPRAZOLE 40 MG/10 ML VIAL INJ IV SCH (10:39)
[2021-12-12] MEDS: AMIODARONE HCL 200 MG TAB PO SCH (11:13)
[2021-12-12] MEDS ORDERED: Jevity 1.2 Cal/Fiber 1 Liter GT SCH (11:15)
[2021-12-12] MEDS: ACETAMINOPHEN 325 MG TAB PO PRN (13:09)
[2021-12-12] MEDS ORDERED: KETOROLAC TROMETH 30 MG/ML 1ML VIAL IV ONE (13:15)
[2021-12-12] MEDS: NOREPINEPHRINE 8 MG/250ML KIT 250 ML IV SCH (15:00)
[2021-12-12] MEDS: ATORVASTATIN 20 MG TAB PO SCH (22:13)
[2021-12-13] VITALS (89 sets, daily range): BP systolic 82–151; BP diastolic 49–107
[2021-12-13 04:54] LABS: Calcium 9.2 mg/dL (8.5-10.1)
[2021-12-13] MEDS: PROPOFOL 100 ML IV SCH ×3 (05:01→18:40)
[2021-12-13] MEDS: MIDAZOLAM DRIP 50 mg/50mL 50 ML IV SCH ×5 (05:01→22:53)
[2021-12-13] MEDS: fentaNYL Drip 2500mCg/250mlNS 250 ML IV SCH ×2 (05:02→14:34)
[2021-12-13] MEDS: FUROSEMIDE 40 MG/4 ML VIAL IV SCH (06:00)
[2021-12-13] MEDS: MILRINONE 20MG/100ML 100 ML IV SCH ×2 (06:45→13:45)
[2021-12-13] MEDS ORDERED: POTASSIUM EFFERVESENT TAB 25 MEQ PO ONE (09:00)
[2021-12-13 09:08] LABS: Hematocrit 38.6 % (41.0-53.0); Hemoglobin 11.5 g/dL (13.5-17.5); Mean Corpuscular Hemoglobin 20.6 pg (28.0-32.0); Mean Corpuscular Hgb Conc. 29.8 g/dL (32.0-36.0); Mean Corpuscular Volume 69.2 fL (80.0-100.0); Red Blood Cells 5.58 10^6/uL (4.5-5.90); White Blood Cell 12.7 10^3/uL (4.4-10.8)
[2021-12-13 09:19] LABS: Red Cell Distribution Width 22.5 % (11.8-14.3)
[2021-12-13 09:23] LABS: Band Neutrophils % (manual) 0; Basophils % (manual) 0 (0.0-2.0); Blast Cells 0; Eosinophils % (manual) 0 (0-7); Metamyelocytes % 0; Myelocytes % 0; Promyelocytes % 0; Reactive Lymphocytes 0
[2021-12-13] MEDS: POTASSIUM CHL 20MEQ/100ML 100 ML IV SCH ×2 (09:34→11:57)
[2021-12-13] MEDS: ACETAMINOPHEN 325 MG TAB PO PRN ×2 (09:35→22:52)
[2021-12-13] MEDS ORDERED: PIPERACILLIN-TAZOB 3.375GM 100 ML IV SCH (10:00)
[2021-12-13 10:27] LABS: Lymphocytes % (manual) 8 (10.0-50.0); Monocytes % (manual) 11 (0-12)
[2021-12-13] MEDS: AMIODARONE HCL 200 MG TAB PO SCH (11:00)
[2021-12-13] MEDS: PANTOPRAZOLE 40 MG/10 ML VIAL INJ IV SCH (11:00)
[2021-12-13] MEDS: ENOXAPARIN SOD 40 MG/0.4 ML SYRINGE SC SCH (11:05)
[2021-12-13] MEDS: DOXYCYCLINE 100MG/250ML 250 ML IV SCH ×2 (11:05→23:16)
[2021-12-13] MEDS: PIPERACILLIN-TAZOB 3.375GM 100 ML IV SCH (14:04)
[2021-12-13] MEDS: ATORVASTATIN 20 MG TAB PO SCH (22:52)
[2021-12-13] MEDS: NOREPINEPHRINE 8 MG/250ML KIT 250 ML IV SCH (23:16)
[2021-12-13 23:50] LABS: Magnesium 2.5 mg/dL (1.6-2.6)
[2021-12-14] VITALS (77 sets, daily range): BP systolic 83–152; BP diastolic 48–96
[2021-12-14] MEDS ORDERED: POTASSIUM CHL 20MEQ/100ML 100 ML IV ONE ×2 (01:00→10:48)
[2021-12-14] MEDS: PIPERACILLIN-TAZOB 3.375GM 100 ML IV SCH ×4 (01:17→22:15)
[2021-12-14] MEDS: MIDAZOLAM DRIP 50 mg/50mL 50 ML IV SCH ×3 (02:22→21:08)
[2021-12-14] MEDS: fentaNYL Drip 2500mCg/250mlNS 250 ML IV SCH (02:24)
[2021-12-14] MEDS: PROPOFOL 100 ML IV SCH ×2 (02:27→08:20)
[2021-12-14] MEDS: MILRINONE 20MG/100ML 100 ML IV SCH ×3 (03:45→17:45)
[2021-12-14 09:01] LABS: Basophils # (auto) 0.1 10 ^3/uL (0-0.2); Basophils % (auto) 0.5 % (0.0-2.0); Eosinophils # (auto) 0 10 ^3/uL (0-0.8); Monocytes # (auto) 1.3 10 ^3/uL (0-1.3); Neutrophils # (auto) 11.1 10 ^3/uL (1.6-8.6)
[2021-12-14 09:02] LABS: Eosinophils % (auto) 0.4 % (0.0-7.0); Hematocrit 39.2 % (41.0-53.0); Hemoglobin 12.2 g/dL (13.5-17.5); Lymphocytes # (auto) 0.9 10 ^3/uL (0.4-5.4); Lymphocytes % (auto) 6.9 % (10.0-50.0); Mean Corpuscular Hemoglobin 21.2 pg (28.0-32.0); Mean Corpuscular Hgb Conc. 31.2 g/dL (32.0-36.0); Mean Corpuscular Volume 67.8 fL (80.0-100.0); Monocytes % (auto) 9.6 % (0.0-12.0); Neutrophils % (auto) 82.6 % (37.0-80.0); Nucleated Red Blood Cells % 0.5 %; Red Blood Cells 5.78 10^6/uL (4.5-5.90); White Blood Cell 13.4 10^3/uL (4.4-10.8)
[2021-12-14 09:08] LABS: Red Cell Distribution Width 22.5 % (11.8-14.3)
[2021-12-14 09:17] LABS: BUN/Creatinine Ratio 23.6; Calcium 8.9 mg/dL (8.5-10.1); Magnesium 2.7 mg/dL (1.6-2.6)
[2021-12-14] MEDS: PANTOPRAZOLE 40 MG/10 ML VIAL INJ IV SCH (10:41)
[2021-12-14] MEDS: FUROSEMIDE 40 MG/4 ML VIAL IV SCH (10:41)
[2021-12-14] MEDS: ENOXAPARIN SOD 40 MG/0.4 ML SYRINGE SC SCH (10:41)
[2021-12-14] MEDS: AMIODARONE HCL 200 MG TAB PO SCH (10:41)
[2021-12-14] MEDS: DOXYCYCLINE 100MG/250ML 250 ML IV SCH ×2 (10:42→22:16)
[2021-12-14] MEDS: POTASSIUM CHL 20MEQ/100ML 100 ML IV SCH ×2 (11:21→13:50)
[2021-12-14] MEDS ORDERED: MAGNESIUM SULFATE 1GM/100ML 100 ML IV ONE (11:45)
[2021-12-14] MEDS ORDERED: POTASSIUM PHOSPHATE 26.4 MEQ in SODIUM CHL 0.9% 100 ML IV ONE (11:45)
[2021-12-14] MEDS: ACETAMINOPHEN 325 MG TAB PO PRN (15:38)
[2021-12-14] MEDS: NOREPINEPHRINE 8 MG/250ML KIT 250 ML IV SCH (17:00)
[2021-12-14] MEDS ORDERED: LORazepam 2MG/ML-1ML VIAL IV PRN (21:00)
[2021-12-14] MEDS: ATORVASTATIN 20 MG TAB PO SCH (22:15)
[2021-12-15] VITALS (68 sets, daily range): BP systolic 72–167; BP diastolic 31–122
[2021-12-15] MEDS: MIDAZOLAM DRIP 50 mg/50mL 50 ML IV SCH (00:41)
[2021-12-15] MEDS: PROPOFOL 100 ML IV SCH (00:43)
[2021-12-15] MEDS: MILRINONE 20MG/100ML 100 ML IV SCH ×4 (00:45→21:45)
[2021-12-15] MEDS: fentaNYL Drip 2500mCg/250mlNS 250 ML IV SCH (02:23)
[2021-12-15] MEDS: ACETAMINOPHEN 325 MG TAB PO PRN (02:27)
[2021-12-15 06:03] LABS: Basophils # (auto) 0.1 10 ^3/uL (0-0.2); Monocytes # (auto) 1.1 10 ^3/uL (0-1.3); Monocytes % (auto) 7.6 % (0.0-12.0); Nucleated Red Blood Cells % 1.5 %
[2021-12-15 06:06] LABS: Basophils % (auto) 0.4 % (0.0-2.0); Eosinophils # (auto) 0.1 10 ^3/uL (0-0.8); Eosinophils % (auto) 0.4 % (0.0-7.0); Hematocrit 37.8 % (41.0-53.0); Hemoglobin 11.6 g/dL (13.5-17.5); Lymphocytes # (auto) 0.8 10 ^3/uL (0.4-5.4); Lymphocytes % (auto) 5.6 % (10.0-50.0); Mean Corpuscular Hemoglobin 21.3 pg (28.0-32.0); Mean Corpuscular Hgb Conc. 30.8 g/dL (32.0-36.0); Mean Corpuscular Volume 69.1 fL (80.0-100.0); Neutrophils # (auto) 12.8 10 ^3/uL (1.6-8.6); Red Blood Cells 5.47 10^6/uL (4.5-5.90); White Blood Cell 14.9 10^3/uL (4.4-10.8)
[2021-12-15 06:20] LABS: BUN/Creatinine Ratio 15.2; Calcium 8.9 mg/dL (8.5-10.1); Magnesium 2.9 mg/dL (1.6-2.6); Phosphorus 7.6 mg/dL (2.5-4.90); Potassium 3.9 mmol/L (3.5-5.1)
[2021-12-15 06:41] LABS: Red Cell Distribution Width 22.3 % (11.8-14.3)
[2021-12-15] MEDS: PIPERACILLIN-TAZOB 3.375GM 100 ML IV SCH ×3 (07:30→21:42)
[2021-12-15] MEDS: PANTOPRAZOLE 40 MG/10 ML VIAL INJ IV SCH ×2 (09:08→21:42)
[2021-12-15] MEDS: FUROSEMIDE 40 MG/4 ML VIAL IV SCH (09:08)
[2021-12-15] MEDS: AMIODARONE HCL 200 MG TAB PO SCH (09:08)
[2021-12-15] MEDS: ASPirin 81 mg TAB PO SCH (09:08)
[2021-12-15] MEDS: ENOXAPARIN SOD 40 MG/0.4 ML SYRINGE SC SCH (09:09)
[2021-12-15] MEDS: DOXYCYCLINE 100MG/250ML 250 ML IV SCH ×2 (10:15→14:03)
[2021-12-15] MEDS: NOREPINEPHRINE BITARTRATE 32 MG in SODIUM CHL 0.9% 218 ML IV SCH (10:40)
[2021-12-15] MEDS ORDERED: LEVETIRACETAM IV ONE (12:15)
[2021-12-15] MEDS ORDERED: SODIUM CHL 0.9% IV ONE (12:15)
[2021-12-15] MEDS: VASOPRESSIN 50 UNITS in D5W 5% 247.5 ML IV SCH (14:15)
[2021-12-15] MEDS: DOPamine 1600MCG/ML D5W 250 ML IV SCH (17:15)
[2021-12-15] MEDS: ATORVASTATIN 20 MG TAB PO SCH (21:43)
[2021-12-16] VITALS (93 sets, daily range): BP systolic 98–165; BP diastolic 45–91
[2021-12-16 03:52] LABS: Basophils # (auto) 0.1 10 ^3/uL (0-0.2); Mean Corpuscular Hemoglobin 21.1 pg (28.0-32.0); Mean Corpuscular Hgb Conc. 30.6 g/dL (32.0-36.0)
[2021-12-16 03:54] LABS: Basophils % (auto) 0.6 % (0.0-2.0); Eosinophils # (auto) 0.1 10 ^3/uL (0-0.8); Eosinophils % (auto) 0.8 % (0.0-7.0); Hematocrit 38.4 % (41.0-53.0); Hemoglobin 11.7 g/dL (13.5-17.5); Lymphocytes # (auto) 0.9 10 ^3/uL (0.4-5.4); Lymphocytes % (auto) 5.6 % (10.0-50.0); Monocytes # (auto) 1.3 10 ^3/uL (0-1.3); Monocytes % (auto) 8.7 % (0.0-12.0); Neutrophils % (auto) 84.3 % (37.0-80.0); Nucleated Red Blood Cells % 0.4 %; Red Blood Cells 5.56 10^6/uL (4.5-5.90); White Blood Cell 15.4 10^3/uL (4.4-10.8)
[2021-12-16 03:55] LABS: Red Cell Distribution Width 22.7 % (11.8-14.3)
[2021-12-16 04:09] LABS: BUN/Creatinine Ratio 20.7; Calcium 9.2 mg/dL (8.5-10.1); Potassium 3.3 mmol/L (3.5-5.1)
[2021-12-16 04:10] LABS: Magnesium 3.2 mg/dL (1.6-2.6)
[2021-12-16] MEDS: MILRINONE 20MG/100ML 100 ML IV SCH ×3 (04:45→18:31)
[2021-12-16] MEDS: MIDAZOLAM DRIP 50 mg/50mL 50 ML IV SCH ×2 (04:50→08:30)
[2021-12-16] MEDS: fentaNYL Drip 2500mCg/250mlNS 250 ML IV SCH (04:51)
[2021-12-16] MEDS: NOREPINEPHRINE BITARTRATE 32 MG in SODIUM CHL 0.9% 218 ML IV SCH (04:52)
[2021-12-16] MEDS: PROPOFOL 100 ML IV SCH ×2 (04:52→08:30)
[2021-12-16] MEDS: PIPERACILLIN-TAZOB 3.375GM 100 ML IV SCH ×3 (05:58→22:06)
[2021-12-16] MEDS: PANTOPRAZOLE 40 MG/10 ML VIAL INJ IV SCH ×2 (06:28→17:11)
[2021-12-16] MEDS ORDERED: POTASSIUM CHL 20MEQ/100ML 100 ML IV ONE (08:45)
[2021-12-16] MEDS: AMIODARONE HCL 200 MG TAB PO SCH (09:26)
[2021-12-16] MEDS: ASPirin 81 mg TAB PO SCH (09:26)
[2021-12-16] MEDS: FUROSEMIDE 40 MG/4 ML VIAL IV SCH (09:26)
[2021-12-16] MEDS: ENOXAPARIN SOD 40 MG/0.4 ML SYRINGE SC SCH (09:26)
[2021-12-16] MEDS: DOXYCYCLINE 100MG/250ML 250 ML IV SCH ×2 (09:27→22:07)
[2021-12-16] MEDS: DOPamine 1600MCG/ML D5W 250 ML IV SCH (13:30)
[2021-12-16] MEDS: VASOPRESSIN 50 UNITS in D5W 5% 247.5 ML IV SCH (14:11)
[2021-12-16] MEDS: ATORVASTATIN 20 MG TAB PO SCH (22:06)
[2021-12-17] VITALS (83 sets, daily range): BP systolic 86–145; BP diastolic 56–96
[2021-12-17] MEDS: MILRINONE 20MG/100ML 100 ML IV SCH ×2 (01:45→08:45)
[2021-12-17] MEDS: PIPERACILLIN-TAZOB 3.375GM 100 ML IV SCH ×3 (06:04→21:40)
[2021-12-17 06:20] LABS: Basophils # (auto) 0.1 10 ^3/uL (0-0.2); Basophils % (auto) 0.4 % (0.0-2.0); Monocytes # (auto) 1.3 10 ^3/uL (0-1.3)
[2021-12-17 06:21] LABS: Eosinophils # (auto) 0.2 10 ^3/uL (0-0.8); Eosinophils % (auto) 1.8 % (0.0-7.0); Hematocrit 37.2 % (41.0-53.0); Hemoglobin 11.7 g/dL (13.5-17.5); Lymphocytes # (auto) 1.2 10 ^3/uL (0.4-5.4); Lymphocytes % (auto) 8.6 % (10.0-50.0); Mean Corpuscular Hemoglobin 21.5 pg (28.0-32.0); Mean Corpuscular Hgb Conc. 31.4 g/dL (32.0-36.0); Mean Corpuscular Volume 68.4 fL (80.0-100.0); Monocytes % (auto) 9.8 % (0.0-12.0); Neutrophils # (auto) 10.7 10 ^3/uL (1.6-8.6); Neutrophils % (auto) 79.4 % (37.0-80.0); Nucleated Red Blood Cells % 0.6 %; Red Blood Cells 5.44 10^6/uL (4.5-5.90); White Blood Cell 13.5 10^3/uL (4.4-10.8)
[2021-12-17 06:34] LABS: Calcium 9.2 mg/dL (8.5-10.1); Magnesium 2.6 mg/dL (1.6-2.6); Potassium 3.3 mmol/L (3.5-5.1)
[2021-12-17 06:36] LABS: BUN/Creatinine Ratio 23.5
[2021-12-17 06:39] LABS: Red Cell Distribution Width 22.2 % (11.8-14.3)
[2021-12-17] MEDS: PANTOPRAZOLE 40 MG/10 ML VIAL INJ IV SCH ×2 (06:53→17:00)
[2021-12-17] MEDS: fentaNYL Drip 2500mCg/250mlNS 250 ML IV SCH (08:30)
[2021-12-17] MEDS: NOREPINEPHRINE BITARTRATE 32 MG in SODIUM CHL 0.9% 218 ML IV SCH (08:30)
[2021-12-17] MEDS ORDERED: PHENYTOIN IV DILANTIN 1,000 MG in SODIUM CHL 0.9% 250 ML IV ONE (08:30)
[2021-12-17] MEDS: DOXYCYCLINE 100MG/250ML 250 ML IV SCH ×2 (09:15→21:41)
[2021-12-17] MEDS: FUROSEMIDE 40 MG/4 ML VIAL IV SCH (09:19)
[2021-12-17] MEDS: ASPirin 81 mg TAB PO SCH (09:20)
[2021-12-17] MEDS: AMIODARONE HCL 200 MG TAB PO SCH (09:20)
[2021-12-17] MEDS: ENOXAPARIN SOD 40 MG/0.4 ML SYRINGE SC SCH (09:20)
[2021-12-17] MEDS: DOPamine 1600MCG/ML D5W 250 ML IV SCH (09:30)
[2021-12-17] MEDS: PROPOFOL 100 ML IV SCH (09:45)
[2021-12-17] MEDS: POTASSIUM CHL 20MEQ/100ML 100 ML IV SCH ×3 (10:30→14:30)
[2021-12-17] MEDS: PHENYTOIN SODIUM 50 MG/ML 2ML VIAL IV SCH ×2 (14:12→21:39)
[2021-12-17] MEDS: ATORVASTATIN 20 MG TAB PO SCH (21:40)
[2021-12-18] VITALS (85 sets, daily range): BP systolic 92–146; BP diastolic 55–101
[2021-12-18 05:34] LABS: Albumin 2.1 g/dL (3.4-5.0); Calcium 8.8 mg/dL (8.5-10.1); Potassium 4.2 mmol/L (3.5-5.1)
[2021-12-18 05:39] LABS: Bilirubin, Total 1.4 mg/dL (0.2-1.0); Total Protein 6.8 g/dL (6.4-8.2)
[2021-12-18] MEDS: PANTOPRAZOLE 40 MG/10 ML VIAL INJ IV SCH ×2 (05:59→16:30)
[2021-12-18] MEDS: PIPERACILLIN-TAZOB 3.375GM 100 ML IV SCH ×3 (05:59→22:00)
[2021-12-18] MEDS: DOPamine 1600MCG/ML D5W 250 ML IV SCH (06:00)
[2021-12-18] MEDS: PHENYTOIN SODIUM 50 MG/ML 2ML VIAL IV SCH ×3 (06:02→22:00)
[2021-12-18] MEDS: MIDAZOLAM DRIP 50 mg/50mL 50 ML IV SCH (07:45)
[2021-12-18] MEDS: fentaNYL Drip 2500mCg/250mlNS 250 ML IV SCH (08:30)
[2021-12-18] MEDS: NOREPINEPHRINE BITARTRATE 32 MG in SODIUM CHL 0.9% 218 ML IV SCH (08:30)
[2021-12-18] MEDS: PROPOFOL 100 ML IV SCH (08:38)
[2021-12-18] MEDS: DOXYCYCLINE 100MG/250ML 250 ML IV SCH (09:15)
[2021-12-18] MEDS: FUROSEMIDE 40 MG/4 ML VIAL IV SCH (09:36)
[2021-12-18] MEDS: AMIODARONE HCL 200 MG TAB PO SCH (09:36)
[2021-12-18] MEDS: ENOXAPARIN SOD 40 MG/0.4 ML SYRINGE SC SCH (09:36)
[2021-12-18] MEDS: ASPirin 81 mg TAB PO SCH (09:36)
[2021-12-18] MEDS ORDERED: PPN PER PHARMACY 0 ML IV SCH (12:30)
[2021-12-18] MEDS: levoFLOXacin 500MG 100 ML IV SCH (12:36)
[2021-12-18 13:14] LABS: Phosphorus 2.6 mg/dL (2.5-4.90)
[2021-12-18 13:30] LABS: Magnesium 2.4 mg/dL (1.6-2.6)
[2021-12-18] MEDS: AMINO ACID INFUSION IN D10W 1,000 ML IV NR (20:14)
[2021-12-18] MEDS: InsuLIN REG 1unit/0.01ml Soln (100units/ml) SC SCH (23:35)
[2021-12-18] MEDS: ACCU-CHEK COMFORT CURVE STRIP VI SCH (23:36)
[2021-12-19] VITALS (71 sets, daily range): BP systolic 84–142; BP diastolic 40–100
[2021-12-19] MEDS ORDERED: DEXTROSE (50%) 50ML SYRG IV SCH
[2021-12-19] MEDS: PROPOFOL 100 ML IV SCH (02:02)
[2021-12-19] MEDS: DOPamine 1600MCG/ML D5W 250 ML IV SCH (03:59)
[2021-12-19 04:25] LABS: Basophils # (auto) 0 10 ^3/uL (0-0.2); Basophils % (auto) 0.3 % (0.0-2.0); Eosinophils # (auto) 0.2 10 ^3/uL (0-0.8); Eosinophils % (auto) 1.6 % (0.0-7.0); Hematocrit 36.1 % (41.0-53.0); Hemoglobin 11.1 g/dL (13.5-17.5); Lymphocytes # (auto) 1.2 10 ^3/uL (0.4-5.4); Lymphocytes % (auto) 12.3 % (10.0-50.0); Mean Corpuscular Hemoglobin 20.9 pg (28.0-32.0); Mean Corpuscular Hgb Conc. 30.7 g/dL (32.0-36.0); Mean Corpuscular Volume 68.3 fL (80.0-100.0); Monocytes # (auto) 0.8 10 ^3/uL (0-1.3); Monocytes % (auto) 8.2 % (0.0-12.0); Neutrophils # (auto) 7.8 10 ^3/uL (1.6-8.6); Neutrophils % (auto) 77.6 % (37.0-80.0); Nucleated Red Blood Cells % 0.9 %; Red Blood Cells 5.28 10^6/uL (4.5-5.90)
[2021-12-19 04:27] LABS: Red Cell Distribution Width 22.5 % (11.8-14.3)
[2021-12-19 04:49] LABS: Albumin 1.9 g/dL (3.4-5.0); BUN/Creatinine Ratio 20.4; Magnesium 2.1 mg/dL (1.6-2.6)
[2021-12-19 04:52] LABS: Bilirubin, Total 1.4 mg/dL (0.2-1.0); Phosphorus 2.1 mg/dL (2.5-4.90)
[2021-12-19 05:07] LABS: Potassium 2.7 mmol/L (3.5-5.1)
[2021-12-19] MEDS ORDERED: POTASSIUM EFFERVESENT TAB 25 MEQ PO ONE (05:30)
[2021-12-19] MEDS: PHENYTOIN SODIUM 50 MG/ML 2ML VIAL IV SCH ×3 (05:49→21:39)
[2021-12-19] MEDS: PIPERACILLIN-TAZOB 3.375GM 100 ML IV SCH ×3 (05:49→21:38)
[2021-12-19] MEDS: InsuLIN REG 1unit/0.01ml Soln (100units/ml) SC SCH ×3 (05:51→18:16)
[2021-12-19] MEDS: POTASSIUM CHL 20MEQ/100ML 100 ML IV SCH ×6 (06:00→20:42)
[2021-12-19] MEDS: ACCU-CHEK COMFORT CURVE STRIP VI SCH ×3 (06:00→18:20)
[2021-12-19] MEDS: PANTOPRAZOLE 40 MG/10 ML VIAL INJ IV SCH ×2 (07:00→17:19)
[2021-12-19] MEDS: MIDAZOLAM DRIP 50 mg/50mL 50 ML IV SCH (07:45)
[2021-12-19] MEDS: NOREPINEPHRINE BITARTRATE 32 MG in SODIUM CHL 0.9% 218 ML IV SCH (08:30)
[2021-12-19] MEDS: fentaNYL Drip 2500mCg/250mlNS 250 ML IV SCH ×2 (08:30→21:36)
[2021-12-19] MEDS: ENOXAPARIN SOD 40 MG/0.4 ML SYRINGE SC SCH (10:00)
[2021-12-19] MEDS: ASPirin 81 mg TAB PO SCH (10:00)
[2021-12-19] MEDS: POTASSIUM EFFERVESENT TAB 25 MEQ GT SCH (10:00)
[2021-12-19] MEDS: FUROSEMIDE 40 MG/4 ML VIAL IV SCH (10:00)
[2021-12-19] MEDS: AMIODARONE HCL 200 MG TAB PO SCH (10:00)
[2021-12-19] MEDS: levoFLOXacin 500MG 100 ML IV SCH (10:00)
[2021-12-19] MEDS ORDERED: SODIUM PHOSPHATES 30 MEQ in D5W 5% 250 ML IV ONE (10:30)
[2021-12-19] MEDS: AMINO ACID INFUSION IN D10W 1,000 ML IV NR (19:49)
[2021-12-19] MEDS ORDERED: PPN PER PHARMACY IV NR ×7 (20:00)
[2021-12-20] VITALS (74 sets, daily range): BP systolic 99–153; BP diastolic 59–96
[2021-12-20] MEDS: DOPamine 1600MCG/ML D5W 250 ML IV SCH ×2 (00:40→08:00)
[2021-12-20] MEDS: ACCU-CHEK COMFORT CURVE STRIP VI SCH ×3 (02:08→12:00)
[2021-12-20] MEDS: InsuLIN REG 1unit/0.01ml Soln (100units/ml) SC SCH ×3 (06:00→12:00)
[2021-12-20] MEDS: PHENYTOIN SODIUM 50 MG/ML 2ML VIAL IV SCH ×3 (06:27→21:15)
[2021-12-20] MEDS: PIPERACILLIN-TAZOB 3.375GM 100 ML IV SCH ×3 (06:28→21:15)
[2021-12-20] MEDS: PANTOPRAZOLE 40 MG/10 ML VIAL INJ IV SCH ×2 (06:30→17:05)
[2021-12-20 06:55] LABS: Potassium 3.4 mmol/L (3.5-5.1)
[2021-12-20 07:07] LABS: Albumin 2.2 g/dL (3.4-5.0); BUN/Creatinine Ratio 22.2; Bilirubin, Total 1.3 mg/dL (0.2-1.0); Calcium 9.2 mg/dL (8.5-10.1); Magnesium 2.2 mg/dL (1.6-2.6); Phosphorus 3.8 mg/dL (2.5-4.90); Total Protein 7.9 g/dL (6.4-8.2)
[2021-12-20] MEDS: MIDAZOLAM DRIP 50 mg/50mL 50 ML IV SCH (07:45)
[2021-12-20] MEDS: NOREPINEPHRINE BITARTRATE 32 MG in SODIUM CHL 0.9% 218 ML IV SCH (08:30)
[2021-12-20] MEDS: PROPOFOL 100 ML IV SCH (09:45)
[2021-12-20] MEDS: FUROSEMIDE 40 MG/4 ML VIAL IV SCH (10:25)
[2021-12-20] MEDS: AMIODARONE HCL 200 MG TAB PO SCH (10:25)
[2021-12-20] MEDS: ENOXAPARIN SOD 40 MG/0.4 ML SYRINGE SC SCH (10:25)
[2021-12-20] MEDS: POTASSIUM EFFERVESENT TAB 25 MEQ GT SCH (10:25)
[2021-12-20] MEDS: ASPirin 81 mg TAB PO SCH (10:25)
[2021-12-20] MEDS: levoFLOXacin 500MG 100 ML IV SCH (10:25)
[2021-12-20] MEDS ORDERED: POTASSIUM CHL 20MEQ/100ML 100 ML IV ONE (11:00)
[2021-12-20] MEDS: EPINEPHrine HCL 0.5 ML NEB NEB PRN ×2 (11:07→16:46)
[2021-12-20] MEDS ORDERED: POTASSIUM CHL 20 Meq TABLET PO ONE (15:00)
[2021-12-20] MEDS ORDERED: LACTULOSE 20Gm/30ML SOLN PO PRN (15:00)
[2021-12-20] MEDS ORDERED: DOCUSATE SOD 100 MG CAP PO ONE (15:00)
[2021-12-20] MEDS ORDERED: PPN PER PHARMACY IV NR ×6 (20:00)
[2021-12-20] MEDS: BACITRACIN TOP OINT 1 UD PKG TOP SCH (21:15)
[2021-12-20] MEDS: ACETAMINOPHEN 325 MG TAB PO PRN (21:37)
[2021-12-21] VITALS (27 sets, daily range): BP systolic 106–129; BP diastolic 67–89
[2021-12-21] MEDS: DOPamine 1600MCG/ML D5W 250 ML IV SCH ×2 (03:42→19:46)
[2021-12-21 04:22] LABS: Basophils # (auto) 0 10 ^3/uL (0-0.2); Eosinophils # (auto) 0.1 10 ^3/uL (0-0.8); Eosinophils % (auto) 0.7 % (0.0-7.0); Monocytes # (auto) 0.6 10 ^3/uL (0-1.3); Monocytes % (auto) 6.1 % (0.0-12.0)
[2021-12-21 04:24] LABS: Basophils % (auto) 0.4 % (0.0-2.0); Hematocrit 37.5 % (41.0-53.0); Hemoglobin 11.5 g/dL (13.5-17.5); Lymphocytes # (auto) 0.8 10 ^3/uL (0.4-5.4); Lymphocytes % (auto) 8.1 % (10.0-50.0); Mean Corpuscular Hgb Conc. 30.7 g/dL (32.0-36.0); Mean Corpuscular Volume 68.3 fL (80.0-100.0); Neutrophils # (auto) 8.6 10 ^3/uL (1.6-8.6); Neutrophils % (auto) 84.7 % (37.0-80.0); Nucleated Red Blood Cells % 0.4 %; Red Blood Cells 5.49 10^6/uL (4.5-5.90); White Blood Cell 10.2 10^3/uL (4.4-10.8)
[2021-12-21 04:38] LABS: Calcium 9.6 mg/dL (8.5-10.1)
[2021-12-21 04:43] LABS: BUN/Creatinine Ratio 24.8
[2021-12-21] MEDS: PHENYTOIN SODIUM 50 MG/ML 2ML VIAL IV SCH ×3 (05:52→19:17)
[2021-12-21] MEDS: PIPERACILLIN-TAZOB 3.375GM 100 ML IV SCH ×3 (05:52→22:05)
[2021-12-21] MEDS: PANTOPRAZOLE 40 MG/10 ML VIAL INJ IV SCH ×2 (05:52→08:50)
[2021-12-21] MEDS: NOREPINEPHRINE BITARTRATE 32 MG in SODIUM CHL 0.9% 218 ML IV SCH (05:52)
[2021-12-21] MEDS: FUROSEMIDE 40 MG/4 ML VIAL IV SCH (08:44)
[2021-12-21] MEDS: POTASSIUM EFFERVESENT TAB 25 MEQ GT SCH (08:45)
[2021-12-21] MEDS: ASPirin 81 mg TAB PO SCH (08:46)
[2021-12-21] MEDS: AMIODARONE HCL 200 MG TAB PO SCH (08:46)
[2021-12-21] MEDS: ENOXAPARIN SOD 40 MG/0.4 ML SYRINGE SC SCH (08:47)
[2021-12-21] MEDS: BACITRACIN TOP OINT 1 UD PKG TOP SCH ×2 (08:48→21:03)
[2021-12-21] MEDS: levoFLOXacin 500MG 100 ML IV SCH (08:49)
[2021-12-21] MEDS ORDERED: FUROSEMIDE 40 MG/4 ML VIAL IV ONE (13:00)
[2021-12-22] VITALS (10 sets, daily range): BP systolic 113–127; BP diastolic 65–91
[2021-12-22 04:14] LABS: Basophils # (auto) 0 10 ^3/uL (0-0.2); Eosinophils # (auto) 0.2 10 ^3/uL (0-0.8); Eosinophils % (auto) 1.9 % (0.0-7.0); Hemoglobin 11.5 g/dL (13.5-17.5); Nucleated Red Blood Cells % 0.2 %
[2021-12-22 04:21] LABS: Calcium 9.2 mg/dL (8.5-10.1); Potassium 3.7 mmol/L (3.5-5.1)
[2021-12-22 04:24] LABS: Albumin 2.1 g/dL (3.4-5.0); BUN/Creatinine Ratio 19.1
[2021-12-22 04:27] LABS: Basophils % (auto) 0.4 % (0.0-2.0); Bilirubin, Total 0.9 mg/dL (0.2-1.0); Hematocrit 37.2 % (41.0-53.0); Lymphocytes # (auto) 0.9 10 ^3/uL (0.4-5.4); Lymphocytes % (auto) 10.2 % (10.0-50.0); Mean Corpuscular Hemoglobin 21.3 pg (28.0-32.0); Mean Corpuscular Hgb Conc. 30.8 g/dL (32.0-36.0); Monocytes # (auto) 0.8 10 ^3/uL (0-1.3); Monocytes % (auto) 9.2 % (0.0-12.0); Neutrophils # (auto) 6.9 10 ^3/uL (1.6-8.6); Neutrophils % (auto) 78.3 % (37.0-80.0); Red Blood Cells 5.38 10^6/uL (4.5-5.90); Total Protein 7.4 g/dL (6.4-8.2); White Blood Cell 8.8 10^3/uL (4.4-10.8)
[2021-12-22 04:28] LABS: Red Cell Distribution Width 22.9 % (11.8-14.3)
[2021-12-22] MEDS: PIPERACILLIN-TAZOB 3.375GM 100 ML IV SCH (05:42)
[2021-12-22] MEDS: PHENYTOIN SODIUM 50 MG/ML 2ML VIAL IV SCH ×3 (05:42→21:37)
[2021-12-22] MEDS: PANTOPRAZOLE 40 MG/10 ML VIAL INJ IV SCH (05:43)
[2021-12-22] MEDS: NOREPINEPHRINE BITARTRATE 32 MG in SODIUM CHL 0.9% 218 ML IV SCH (07:03)
[2021-12-22] MEDS: levoFLOXacin 500MG 100 ML IV SCH (11:39)
[2021-12-22] MEDS: ASPirin 81 mg TAB PO SCH (11:40)
[2021-12-22] MEDS: AMIODARONE HCL 200 MG TAB PO SCH (11:45)
[2021-12-22] MEDS: BACITRACIN TOP OINT 1 UD PKG TOP SCH ×2 (11:46→21:38)
[2021-12-22] MEDS: ENOXAPARIN SOD 40 MG/0.4 ML SYRINGE SC SCH (11:46)
[2021-12-22] MEDS: FUROSEMIDE 40 MG/4 ML VIAL IV SCH (13:38)
[2021-12-22] MEDS: APIXABAN 5 MG TAB PO SCH (21:37)
[2021-12-23 05:00] VITALS: BP 116/67
[2021-12-23] MEDS: PHENYTOIN SODIUM 50 MG/ML 2ML VIAL IV SCH ×3 (05:41→21:45)
[2021-12-23 09:00] VITALS: BP 137/84
[2021-12-23] MEDS: BACITRACIN TOP OINT 1 UD PKG TOP SCH ×2 (10:00→21:46)
[2021-12-23] MEDS: APIXABAN 5 MG TAB PO SCH ×3 (10:00→21:46)
[2021-12-23] MEDS: FUROSEMIDE 40 MG/4 ML VIAL IV SCH (10:43)
[2021-12-23] MEDS: levoFLOXacin 500MG 100 ML IV SCH (10:43)
[2021-12-23] MEDS: PANTOPRAZOLE 40 MG TAB PO SCH (10:49)
[2021-12-23] MEDS: AMIODARONE HCL 200 MG TAB PO SCH (10:49)
[2021-12-23 11:44] LABS: Calcium 9.4 mg/dL (8.5-10.1); Potassium 3.4 mmol/L (3.5-5.1)
[2021-12-23 13:00] VITALS: BP 117/75
[2021-12-23 17:00] VITALS: BP 134/80
[2021-12-23] MEDS: IPRATROPIUM BROM 0.5 MG/2.5ML INH SOL NEB PRN (17:45)
[2021-12-23] MEDS: ALBUTEROL SULF 2.5 MG/0.5ML(0.5%) NEB SOLN NEB PRN (17:45)
[2021-12-23 22:00] VITALS: BP 124/75
[2021-12-24] MEDS: ACETAMINOPHEN 325 MG TAB PO PRN (04:06)
[2021-12-24 05:00] VITALS: BP 140/81
[2021-12-24] MEDS: PHENYTOIN SODIUM 50 MG/ML 2ML VIAL IV SCH (05:48)
[2021-12-24 09:00] VITALS: BP 141/75
[2021-12-24] MEDS: FUROSEMIDE 40 MG/4 ML VIAL IV SCH (10:46)
[2021-12-24] MEDS: AMIODARONE HCL 200 MG TAB PO SCH (10:46)
[2021-12-24] MEDS: APIXABAN 5 MG TAB PO SCH ×2 (10:46→21:36)
[2021-12-24] MEDS: levETIRAcetam 500 MG TAB PO SCH ×2 (10:47→21:36)
[2021-12-24] MEDS: PANTOPRAZOLE 40 MG TAB PO SCH (10:47)
[2021-12-24] MEDS: BACITRACIN TOP OINT 1 UD PKG TOP SCH ×2 (10:47→21:36)
[2021-12-24 11:13] VITALS: BP 140/81
[2021-12-24] MEDS: Ensure HIGH Protein Chocolate 8oz Bottle PO SCH ×2 (12:00→18:49)
[2021-12-24 13:00] VITALS: BP 141/84
[2021-12-24 16:47] VITALS: BP 137/86
[2021-12-24 22:00] VITALS: BP 124/73
[2021-12-24] MEDS ORDERED: PHENYTOIN SODIUM 100 MG CAP PO SCH (22:00)
[2021-12-25 06:43] LABS: BUN/Creatinine Ratio 15.3; Calcium 9.2 mg/dL (8.5-10.1); Potassium 3.3 mmol/L (3.5-5.1)
[2021-12-25] MEDS: Ensure HIGH Protein Chocolate 8oz Bottle PO SCH ×3 (08:00→17:27)
[2021-12-25 09:33] VITALS: BP 154/73
[2021-12-25] MEDS: FUROSEMIDE 40 MG/4 ML VIAL IV SCH (09:42)
[2021-12-25] MEDS: AMIODARONE HCL 200 MG TAB PO SCH (09:42)
[2021-12-25] MEDS: BACITRACIN TOP OINT 1 UD PKG TOP SCH ×2 (09:43→21:16)
[2021-12-25] MEDS: levETIRAcetam 500 MG TAB PO SCH ×2 (09:43→21:16)
[2021-12-25] MEDS: PANTOPRAZOLE 40 MG TAB PO SCH (09:43)
[2021-12-25] MEDS: APIXABAN 5 MG TAB PO SCH ×2 (09:43→21:16)
[2021-12-25] MEDS ORDERED: POTASSIUM CHL 20 Meq TABLET PO ONE (10:15)
[2021-12-25] MEDS: PHENYTOIN SODIUM 100 MG CAP PO SCH ×2 (11:14→21:16)
[2021-12-25 13:24] VITALS: BP 119/81
[2021-12-25 16:31] VITALS: BP 138/79
[2021-12-25 22:00] VITALS: BP 113/70
[2021-12-26 05:00] VITALS: BP 113/67
[2021-12-26 06:48] LABS: Basophils # (auto) 0.1 10 ^3/uL (0-0.2); Eosinophils # (auto) 0.2 10 ^3/uL (0-0.8); Eosinophils % (auto) 2.5 % (0.0-7.0); Hematocrit 38.3 % (41.0-53.0); Monocytes # (auto) 0.7 10 ^3/uL (0-1.3); Neutrophils % (auto) 74.9 % (37.0-80.0)
[2021-12-26 06:50] LABS: Basophils % (auto) 0.8 % (0.0-2.0); Hemoglobin 11.7 g/dL (13.5-17.5); Lymphocytes # (auto) 0.9 10 ^3/uL (0.4-5.4); Lymphocytes % (auto) 12.2 % (10.0-50.0); Mean Corpuscular Hemoglobin 21.6 pg (28.0-32.0); Mean Corpuscular Hgb Conc. 30.6 g/dL (32.0-36.0); Mean Corpuscular Volume 70.7 fL (80.0-100.0); Monocytes % (auto) 9.6 % (0.0-12.0); Neutrophils # (auto) 5.6 10 ^3/uL (1.6-8.6); Nucleated Red Blood Cells % 0.2 %; Red Blood Cells 5.43 10^6/uL (4.5-5.90); White Blood Cell 7.5 10^3/uL (4.4-10.8)
[2021-12-26 06:58] LABS: Red Cell Distribution Width 24.2 % (11.8-14.3)
[2021-12-26 07:02] LABS: BUN/Creatinine Ratio 14.7; Calcium 9.1 mg/dL (8.5-10.1); Potassium 3.3 mmol/L (3.5-5.1)
[2021-12-26] MEDS: Ensure HIGH Protein Chocolate 8oz Bottle PO SCH ×3 (08:00→18:00)
[2021-12-26 08:19] VITALS: BP 130/79
[2021-12-26] MEDS ORDERED: POTASSIUM CHL 20 Meq TABLET PO ONE (10:00)
[2021-12-26] MEDS ORDERED: FUROSEMIDE 40 MG/4 ML VIAL IV ONE (10:00)
[2021-12-26] MEDS: FUROSEMIDE 40 MG/4 ML VIAL IV SCH (10:26)
[2021-12-26] MEDS: APIXABAN 5 MG TAB PO SCH ×2 (10:27→21:02)
[2021-12-26] MEDS: AMIODARONE HCL 200 MG TAB PO SCH (10:27)
[2021-12-26] MEDS: levETIRAcetam 500 MG TAB PO SCH ×2 (10:28→21:02)
[2021-12-26] MEDS: BACITRACIN TOP OINT 1 UD PKG TOP SCH ×2 (10:28→21:02)
[2021-12-26] MEDS: PANTOPRAZOLE 40 MG TAB PO SCH (10:28)
[2021-12-26 12:09] VITALS: BP 117/73
[2021-12-26 16:35] VITALS: BP 126/61
[2021-12-26] MEDS: PHENYTOIN SODIUM 100 MG CAP PO SCH (21:02)
[2021-12-26] MEDS: IPRATROPIUM BROM 0.5 MG/2.5ML INH SOL NEB PRN (21:52)
[2021-12-26] MEDS: ALBUTEROL SULF 2.5 MG/0.5ML(0.5%) NEB SOLN NEB PRN (21:52)
[2021-12-26 22:00] VITALS: BP 120/66
[2021-12-27 05:00] VITALS: BP 107/65
[2021-12-27 05:31] LABS: Potassium 3.6 mmol/L (3.5-5.1)
[2021-12-27 05:35] LABS: BUN/Creatinine Ratio 13.8; Calcium 9.1 mg/dL (8.5-10.1)
[2021-12-27] MEDS: Ensure HIGH Protein Chocolate 8oz Bottle PO SCH ×3 (08:00→18:00)
[2021-12-27 09:30] VITALS: BP 95/57
[2021-12-27] MEDS: AMIODARONE HCL 200 MG TAB PO SCH (10:00)
[2021-12-27] MEDS: levETIRAcetam 500 MG TAB PO SCH ×2 (10:00→22:15)
[2021-12-27] MEDS: FUROSEMIDE 40 MG/4 ML VIAL IV SCH (10:00)
[2021-12-27] MEDS: PANTOPRAZOLE 40 MG TAB PO SCH (10:00)
[2021-12-27] MEDS: APIXABAN 5 MG TAB PO SCH ×2 (10:00→22:15)
[2021-12-27] MEDS: BACITRACIN TOP OINT 1 UD PKG TOP SCH ×2 (10:00→22:16)
[2021-12-27] MEDS ORDERED: DIGOXIN 0.125 MG TAB PO ONE (10:45)
[2021-12-27 12:55] VITALS: BP 101/65
[2021-12-27] MEDS: ACETAMINOPHEN 325 MG TAB PO PRN (13:55)
[2021-12-27 16:45] VITALS: BP 101/65
[2021-12-27 16:50] VITALS: BP 112/77
[2021-12-27] MEDS: FUROSEMIDE 40 MG TAB PO SCH (19:19)
[2021-12-27 22:00] VITALS: BP 116/65
[2021-12-27] MEDS: PHENYTOIN SODIUM 100 MG CAP PO SCH (22:15)
[2021-12-27] MEDS: POTASSIUM CHL 20 Meq TABLET PO SCH (22:16)
[2021-12-28 05:00] VITALS: BP 108/67
[2021-12-28] MEDS: FUROSEMIDE 40 MG TAB PO SCH (06:26)
[2021-12-28] MEDS: Ensure HIGH Protein Chocolate 8oz Bottle PO SCH (08:00)
[2021-12-28 09:00] VITALS: BP 118/72
[2021-12-28] MEDS ORDERED: FUROSEMIDE 40 MG/4 ML VIAL IV ONE (09:30)
[2021-12-28] MEDS ORDERED: POTASSIUM CHL 20 Meq TABLET PO ONE (09:30)
[2021-12-28] MEDS ORDERED: DIGOXIN 0.125 MG TAB PO SCH (10:00)
[2021-12-28] MEDS: APIXABAN 5 MG TAB PO SCH (10:34)
[2021-12-28] MEDS: POTASSIUM CHL 20 Meq TABLET PO SCH (10:35)
[2021-12-28] MEDS: AMIODARONE HCL 200 MG TAB PO SCH (10:36)
[2021-12-28] MEDS: PANTOPRAZOLE 40 MG TAB PO SCH (10:37)
[2021-12-28] MEDS: BACITRACIN TOP OINT 1 UD PKG TOP SCH (10:38)
[2021-12-28] MEDS: levETIRAcetam 500 MG TAB PO SCH (10:38)
[2021-12-28 13:00] VITALS: BP 97/58
[2021-12-28 15:17] VITALS: BP 118/72
== END 2021-12-28 16:39 | DRG 870 ==
LOC: ER 23:58 → TELE 12-09 06:05 → ICU WEST 12-09 12:44 → TELE-CENTR 12-22 17:31
PROVIDERS: ADMIT Internal Medicine; ATTEND Internal Medicine
PROC: 5A1955Z Respiratory Ventilation, Greater than 96 Consecutive Hours (ICD-10-PCS; principal; 2021-12-09)
PROC: 0BH17EZ Insertion of Endotracheal Airway into Trachea, Via Natural or Artificial Opening (ICD-10-PCS; 2021-12-09)
PROC: 0W9930Z Drainage of Right Pleural Cavity with Drainage Device, Percutaneous Approach (ICD-10-PCS; 2021-12-09)
PROC: 5A09357 Assistance with Respiratory Ventilation, Less than 24 Consecutive Hours, Continuous Positive Airway Pressure (ICD-10-PCS; 2021-12-09)
PROC: 05HA33Z Insertion of Infusion Device into Left Brachial Vein, Percutaneous Approach (ICD-10-PCS; 2021-12-13)
PROC: B54NZZA Ultrasonography of Left Upper Extremity Veins, Guidance (ICD-10-PCS; 2021-12-13)
DX: A41.9 Sepsis, unspecified organism (principal); I21.4 Non-ST elevation (NSTEMI) myocardial infarction; J96.01 Acute respiratory failure with hypoxia; I50.23 Acute on chronic systolic (congestive) heart failure; J15.211 Pneumonia due to Methicillin susceptible Staphylococcus aureus; N17.0 Acute kidney failure with tubular necrosis; G92.8 Other toxic encephalopathy; J96.02 Acute respiratory failure with hypercapnia; J93.9 Pneumothorax, unspecified; I42.9 Cardiomyopathy, unspecified; I13.0 Hypertensive heart and chronic kidney disease with heart failure and stage 1 through stage 4 chronic kidney disease, or unspecified chronic kidney disease; I48.20 Chronic atrial fibrillation, unspecified; I47.2 Ventricular tachycardia; G93.1 Anoxic brain damage, not elsewhere classified; K56.7 Ileus, unspecified; K92.2 Gastrointestinal hemorrhage, unspecified; D68.69 Other thrombophilia; R57.9 Shock, unspecified; Z68.42 Body mass index [BMI] 45.0-49.9, adult; Z66 Do not resuscitate; I25.10 Atherosclerotic heart disease of native coronary artery without angina pectoris; K94.21 Gastrostomy hemorrhage; E66.01 Morbid (severe) obesity due to excess calories; N18.31 Chronic kidney disease, stage 3a; E87.5 Hyperkalemia; E87.6 Hypokalemia; E78.5 Hyperlipidemia, unspecified; Z88.8 Allergy status to other drugs, medicaments and biological substances
CPT/HCPCS: 31500; 32551; 36415; 36600; 70450; 71045; 71250; 74176; 80048; 80053; 80061; 80185; 81001; 82040; 82570; 82805; 82962; 83735; 83880; 83935; 84100; 84132; 84156; 84300; 84478; 84484; 85007; 85025; 85027; 85379; 85610; 85730; 87040; 87070; 87077; 87081; 87086; 87186; 87205; 87804; 92610; 93005; 93306; 94002; 94003; 94640; 95819; 96365; 96375; 97110; 97116; 97163; 97530; 99291; A4618; C9113; G0378; J0330; J1885; J1956; J2001; J2250; J2543; J2704; J3480; J3490; J7060

== ENCOUNTER → 2022-01-16 | Outpatient (CLI) | payer MEDICARE, MEDICAID ==
[~2022-01-16] MED LIST changes: +CYANOCOBALAMIN (B-12) 1000 MCG/1 ML VIAL IM ONE; +CYANOCOBALAMIN (B-12) 1000 MCG/1 ML VIAL ONE
[2022-01-16 12:20] VITALS: BP 124/84
[2022-01-16 16:39] LABS: BUN/Creatinine Ratio 9.2; Calcium 8.9 mg/dL (8.5-10.1); Magnesium 2.1 mg/dL (1.6-2.6); Potassium 4.2 mmol/L (3.5-5.1)
[2022-01-16 16:42] LABS: Bilirubin, Total 0.6 mg/dL (0.2-1.0); Total Protein 7.7 g/dL (6.4-8.2)
[2022-01-16 16:45] LABS: Basophils # (auto) 0.1 10 ^3/uL (0-0.2); Basophils % (auto) 1.8 % (0.0-2.0); Eosinophils # (auto) 0.1 10 ^3/uL (0-0.8); Eosinophils % (auto) 1.8 % (0.0-7.0); Lymphocytes # (auto) 0.6 10 ^3/uL (0.4-5.4); Lymphocytes % (auto) 14.2 % (10.0-50.0); Mean Corpuscular Hemoglobin 22.8 pg (28.0-32.0); Mean Corpuscular Hgb Conc. 30.9 g/dL (32.0-36.0); Mean Corpuscular Volume 73.8 fL (80.0-100.0); Monocytes # (auto) 0.6 10 ^3/uL (0-1.3); Monocytes % (auto) 13.4 % (0.0-12.0); Neutrophils # (auto) 2.9 10 ^3/uL (1.6-8.6); Neutrophils % (auto) 68.8 % (37.0-80.0); Nucleated Red Blood Cells % 0.4 %; Red Blood Cells 5.69 10^6/uL (4.5-5.90); White Blood Cell 4.3 10^3/uL (4.4-10.8)
[2022-01-16 16:48] LABS: Prostate Specific Antigen 1.07 ng/mL (0.0-4.0)
[2022-01-16 16:49] LABS: Red Cell Distribution Width 25.4 % (11.8-14.3)
== END | disposition home or self-care (01) ==
LOC: CHF HDHVI 11:35
PROVIDERS: ATTEND Internal Medicine Cardiovascular Disease
DX: I50.23 Acute on chronic systolic (congestive) heart failure (principal); E03.9 Hypothyroidism, unspecified; E55.9 Vitamin D deficiency, unspecified; C61 Malignant neoplasm of prostate
CPT/HCPCS: 36415; 80053; 80162; 82306; 82607; 83735; 83880; 84153; 84443; 85025; 96372; G0463; J1642; J3420

== ENCOUNTER → 2022-01-23 | Outpatient (CLI) | payer MEDICARE, MEDICAID ==
[2022-01-23] VITALS (11 sets, daily range): BP systolic 114–139; BP diastolic 74–90
[~2022-01-23] MED LIST changes: -CYANOCOBALAMIN (B-12) 1000 MCG/1 ML VIAL IM ONE; -CYANOCOBALAMIN (B-12) 1000 MCG/1 ML VIAL ONE; +MILRINONE 20MG/100ML 100 ML IV ONE
[2022-01-23 10:14] LABS: Basophils # (auto) 0 10 ^3/uL (0-0.2); Eosinophils # (auto) 0.1 10 ^3/uL (0-0.8); Eosinophils % (auto) 1.4 % (0.0-7.0); Lymphocytes # (auto) 1.2 10 ^3/uL (0.4-5.4); Lymphocytes % (auto) 22.9 % (10.0-50.0); Monocytes # (auto) 0.4 10 ^3/uL (0-1.3); Nucleated Red Blood Cells % 0.2 %
[2022-01-23 10:18] LABS: Basophils % (auto) 0.8 % (0.0-2.0); Hematocrit 39.3 % (41.0-53.0); Mean Corpuscular Hemoglobin 22.4 pg (28.0-32.0); Mean Corpuscular Hgb Conc. 30.6 g/dL (32.0-36.0); Mean Corpuscular Volume 73.4 fL (80.0-100.0); Monocytes % (auto) 7.9 % (0.0-12.0); Neutrophils # (auto) 3.4 10 ^3/uL (1.6-8.6); Red Blood Cells 5.36 10^6/uL (4.5-5.90)
[2022-01-23 10:23] LABS: Red Cell Distribution Width 24.3 % (11.8-14.3)
[2022-01-23 10:33] LABS: Magnesium 2.3 mg/dL (1.6-2.6); Potassium 3.8 mmol/L (3.5-5.1)
[2022-01-23 10:35] LABS: BUN/Creatinine Ratio 10.2
== END | disposition home or self-care (01) ==
LOC: Rad HDHVI 08:30
PROVIDERS: ATTEND Internal Medicine Cardiovascular Disease
DX: I50.23 Acute on chronic systolic (congestive) heart failure (principal); I34.0 Nonrheumatic mitral (valve) insufficiency; I77.89 Other specified disorders of arteries and arterioles; I08.1 Rheumatic disorders of both mitral and tricuspid valves
CPT/HCPCS: 36415; 71046; 80048; 83735; 83880; 85025; 93306; 96365; 96366; G0463; J1642; J2260

== ENCOUNTER → 2022-01-30 | Outpatient (CLI) | payer MEDICARE, MEDICAID ==
[2022-01-30] VITALS (11 sets, daily range): BP systolic 108–145; BP diastolic 53–94
[~2022-01-30] VITALS: Ht 172.7 cm; Wt 118.9 kg
[~2022-01-30] MED LIST changes: +POTASSIUM CHL 10 Meq TABLET PO ONE; +POTASSIUM CHL 20 Meq TABLET PO ONE; +metOLazone 5 MG TAB ONE; +metOLazone 5 MG TAB PO ONE
== END | disposition home or self-care (01) ==
LOC: CHF HDHVI 09:20
PROVIDERS: ATTEND Internal Medicine Cardiovascular Disease
DX: I50.23 Acute on chronic systolic (congestive) heart failure (principal)
CPT/HCPCS: 36415; 80162; 82542; 82565; 83880; 84132; 84520; 96365; 96366; G0463; J1642; J2260

== ENCOUNTER → 2022-02-04 | Outpatient (CLI) | payer MEDICARE, MEDICAID ==
[~2022-02-04] VITALS: Ht 172.7 cm; Wt 115.9 kg
[2022-02-04] VITALS (11 sets, daily range): BP systolic 94–118; BP diastolic 52–82
[~2022-02-04] MED LIST changes: -POTASSIUM CHL 10 Meq TABLET PO ONE; -POTASSIUM CHL 20 Meq TABLET PO ONE; -metOLazone 5 MG TAB ONE; -metOLazone 5 MG TAB PO ONE
[2022-02-04 11:49] LABS: Basophils # (auto) 0 10 ^3/uL (0-0.2); Basophils % (auto) 0.7 % (0.0-2.0); Eosinophils # (auto) 0.1 10 ^3/uL (0-0.8); Lymphocytes # (auto) 1.1 10 ^3/uL (0.4-5.4); Nucleated Red Blood Cells % 0.1 %; White Blood Cell 5.9 10^3/uL (4.4-10.8)
[2022-02-04 11:52] LABS: Eosinophils % (auto) 1.3 % (0.0-7.0); Hematocrit 39.5 % (41.0-53.0); Mean Corpuscular Hemoglobin 22.2 pg (28.0-32.0); Mean Corpuscular Hgb Conc. 30.5 g/dL (32.0-36.0); Mean Corpuscular Volume 72.7 fL (80.0-100.0); Monocytes # (auto) 0.7 10 ^3/uL (0-1.3); Monocytes % (auto) 11.7 % (0.0-12.0); Neutrophils % (auto) 67.3 % (37.0-80.0); Red Blood Cells 5.43 10^6/uL (4.5-5.90)
[2022-02-04 11:56] LABS: Red Cell Distribution Width 23.8 % (11.8-14.3)
[2022-02-04 12:45] LABS: BUN/Creatinine Ratio 12.8; Calcium 8.7 mg/dL (8.5-10.1)
== END | disposition home or self-care (01) ==
LOC: CHF HDHVI 09:17
PROVIDERS: ATTEND Internal Medicine Cardiovascular Disease
DX: I50.23 Acute on chronic systolic (congestive) heart failure (principal)
CPT/HCPCS: 36415; 80048; 83880; 85025; 96365; 96366; G0463; J1642; J2260

== ENCOUNTER → 2022-02-06 | Outpatient (CLI) | payer MEDICARE, MEDICAID ==
[2022-02-06] VITALS (10 sets, daily range): BP systolic 98–116; BP diastolic 65–80
== END | disposition home or self-care (01) ==
LOC: CHF HDHVI 09:58
PROVIDERS: ATTEND Internal Medicine Cardiovascular Disease
DX: I13.0 Hypertensive heart and chronic kidney disease with heart failure and stage 1 through stage 4 chronic kidney disease, or unspecified chronic kidney disease (principal); E11.22 Type 2 diabetes mellitus with diabetic chronic kidney disease; I50.42 Chronic combined systolic (congestive) and diastolic (congestive) heart failure; N18.31 Chronic kidney disease, stage 3a; I25.5 Ischemic cardiomyopathy; I25.10 Atherosclerotic heart disease of native coronary artery without angina pectoris; I25.2 Old myocardial infarction; I48.20 Chronic atrial fibrillation, unspecified; J44.9 Chronic obstructive pulmonary disease, unspecified; J96.10 Chronic respiratory failure, unspecified whether with hypoxia or hypercapnia; E11.40 Type 2 diabetes mellitus with diabetic neuropathy, unspecified; E11.51 Type 2 diabetes mellitus with diabetic peripheral angiopathy without gangrene; E78.5 Hyperlipidemia, unspecified; E03.9 Hypothyroidism, unspecified; F41.9 Anxiety disorder, unspecified; E66.01 Morbid (severe) obesity due to excess calories; Z68.42 Body mass index [BMI] 45.0-49.9, adult; Z79.01 Long term (current) use of anticoagulants; Z79.02 Long term (current) use of antithrombotics/antiplatelets; Z79.899 Other long term (current) drug therapy; Z87.891 Personal history of nicotine dependence; Z85.46 Personal history of malignant neoplasm of prostate; Z95.5 Presence of coronary angioplasty implant and graft; Z95.810 Presence of automatic (implantable) cardiac defibrillator; Z86.73 Personal history of transient ischemic attack (TIA), and cerebral infarction without residual deficits
CPT/HCPCS: 96365; 96366; G0463; J1642; J2260

== ENCOUNTER → 2022-02-11 | Outpatient (CLI) | payer MEDICARE, MEDICAID ==
[~2022-02-11] VITALS: Ht 30.5 cm; Wt 116.1 kg
[2022-02-11] VITALS (11 sets, daily range): BP systolic 96–124; BP diastolic 60–76
[2022-02-11 11:37] LABS: Basophils # (auto) 0 10 ^3/uL (0-0.2); Eosinophils # (auto) 0.1 10 ^3/uL (0-0.8); Eosinophils % (auto) 1.3 % (0.0-7.0); Hemoglobin 11.8 g/dL (13.5-17.5); Monocytes # (auto) 0.7 10 ^3/uL (0-1.3); Neutrophils # (auto) 4.6 10 ^3/uL (1.6-8.6); Nucleated Red Blood Cells % 0.2 %
[2022-02-11 11:43] LABS: Basophils % (auto) 0.5 % (0.0-2.0); Lymphocytes # (auto) 1.1 10 ^3/uL (0.4-5.4); Lymphocytes % (auto) 16.5 % (10.0-50.0); Mean Corpuscular Hgb Conc. 30.3 g/dL (32.0-36.0); Monocytes % (auto) 10.6 % (0.0-12.0); Neutrophils % (auto) 71.1 % (37.0-80.0); Red Blood Cells 5.34 10^6/uL (4.5-5.90); Red Cell Distribution Width 23.6 % (11.8-14.3); White Blood Cell 6.5 10^3/uL (4.4-10.8)
[2022-02-11 11:44] LABS: Mean Corpuscular Hemoglobin 22.1 pg (28.0-32.0)
[2022-02-11 11:50] LABS: Albumin 2.9 g/dL (3.4-5.0); Calcium 8.7 mg/dL (8.5-10.1)
[2022-02-11 11:55] LABS: BUN/Creatinine Ratio 13.4; Bilirubin, Total 0.5 mg/dL (0.2-1.0); Total Protein 7.7 g/dL (6.4-8.2)
== END | disposition home or self-care (01) ==
LOC: CHF HDHVI 09:46
PROVIDERS: ATTEND Internal Medicine Cardiovascular Disease
DX: I50.23 Acute on chronic systolic (congestive) heart failure (principal)
CPT/HCPCS: 36415; 80053; 83880; 85025; 96365; 96366; G0463; J1642; J2260

== ENCOUNTER → 2022-02-13 | Outpatient (CLI) | payer MEDICARE, MEDICAID ==
[2022-02-13] VITALS (9 sets, daily range): BP systolic 109–126; BP diastolic 58–89
== END | disposition home or self-care (01) ==
LOC: CHF HDHVI 09:13
PROVIDERS: ATTEND Internal Medicine Cardiovascular Disease
DX: I50.9 Heart failure, unspecified (principal); I51.7 Cardiomegaly; I42.0 Dilated cardiomyopathy
CPT/HCPCS: 96365; 96366; G0463; J1642; J2260

== ENCOUNTER → 2022-02-25 | Outpatient (CLI) | payer MEDICARE, MEDICAID ==
[2022-02-25] VITALS (11 sets, daily range): BP systolic 104–128; BP diastolic 58–76
[~2022-02-25] MED LIST changes: +BUMETANIDE 2.5mg/10ml (0.25 mg/ml) INJ IV ONE; +BUMETANIDE INJECTION 20 ML ONE; +CYANOCOBALAMIN (B-12) 1000 MCG/1 ML VIAL IM ONE; +CYANOCOBALAMIN (B-12) 1000 MCG/1 ML VIAL ONE; +POTASSIUM CHL 10 Meq TABLET PO ONE; +POTASSIUM CHL 20 Meq TABLET PO ONE; +metOLazone 5 MG TAB ONE; +metOLazone 5 MG TAB PO ONE
[2022-02-25 11:50] LABS: Albumin 2.9 g/dL (3.4-5.0); Calcium 8.8 mg/dL (8.5-10.1); Magnesium 2.5 mg/dL (1.6-2.6); Potassium 3.8 mmol/L (3.5-5.1)
[2022-02-25 11:54] LABS: BUN/Creatinine Ratio 16.5; Bilirubin, Total 0.6 mg/dL (0.2-1.0); Total Protein 7.7 g/dL (6.4-8.2)
== END | disposition home or self-care (01) ==
LOC: CHF HDHVI 08:57
PROVIDERS: ATTEND Internal Medicine Cardiovascular Disease
DX: I13.0 Hypertensive heart and chronic kidney disease with heart failure and stage 1 through stage 4 chronic kidney disease, or unspecified chronic kidney disease (principal); E11.22 Type 2 diabetes mellitus with diabetic chronic kidney disease; I50.42 Chronic combined systolic (congestive) and diastolic (congestive) heart failure; N18.31 Chronic kidney disease, stage 3a; I25.10 Atherosclerotic heart disease of native coronary artery without angina pectoris; I25.2 Old myocardial infarction; I48.20 Chronic atrial fibrillation, unspecified; J44.9 Chronic obstructive pulmonary disease, unspecified; J96.10 Chronic respiratory failure, unspecified whether with hypoxia or hypercapnia; E11.40 Type 2 diabetes mellitus with diabetic neuropathy, unspecified; E11.51 Type 2 diabetes mellitus with diabetic peripheral angiopathy without gangrene; E78.5 Hyperlipidemia, unspecified; E03.9 Hypothyroidism, unspecified; E66.01 Morbid (severe) obesity due to excess calories; Z68.42 Body mass index [BMI] 45.0-49.9, adult; Z79.01 Long term (current) use of anticoagulants; Z79.02 Long term (current) use of antithrombotics/antiplatelets; Z79.899 Other long term (current) drug therapy; Z87.891 Personal history of nicotine dependence; Z85.46 Personal history of malignant neoplasm of prostate; Z95.810 Presence of automatic (implantable) cardiac defibrillator; Z95.5 Presence of coronary angioplasty implant and graft; Z86.73 Personal history of transient ischemic attack (TIA), and cerebral infarction without residual deficits
CPT/HCPCS: 36415; 80053; 83735; 83880; 96365; 96366; 96372; 96375; G0463; J1642; J2260; J3420

== ENCOUNTER → 2022-03-04 | Outpatient (CLI) | payer MEDICARE, MEDICAID ==
[2022-03-04] VITALS (10 sets, daily range): BP systolic 100–125; BP diastolic 65–75
[~2022-03-04] MED LIST changes: -BUMETANIDE 2.5mg/10ml (0.25 mg/ml) INJ IV ONE; -BUMETANIDE INJECTION 20 ML ONE; -CYANOCOBALAMIN (B-12) 1000 MCG/1 ML VIAL IM ONE; -CYANOCOBALAMIN (B-12) 1000 MCG/1 ML VIAL ONE; -POTASSIUM CHL 10 Meq TABLET PO ONE; -POTASSIUM CHL 20 Meq TABLET PO ONE; -metOLazone 5 MG TAB ONE; -metOLazone 5 MG TAB PO ONE
[2022-03-04 12:51] LABS: Calcium 8.7 mg/dL (8.5-10.1); Potassium 3.6 mmol/L (3.5-5.1)
[2022-03-04 12:55] LABS: BUN/Creatinine Ratio 15.7
== END | disposition home or self-care (01) ==
LOC: CHF HDHVI 08:23
PROVIDERS: ATTEND Internal Medicine Cardiovascular Disease
DX: I50.23 Acute on chronic systolic (congestive) heart failure (principal)
CPT/HCPCS: 36415; 80048; 83735; 83880; 96365; 96366; G0463; J1642; J2260

== ENCOUNTER → 2022-03-06 | Outpatient (CLI) | payer MEDICARE, MEDICAID ==
[2022-03-06] VITALS (11 sets, daily range): BP systolic 98–127; BP diastolic 65–89
== END | disposition home or self-care (01) ==
LOC: CHF HDHVI 09:17
PROVIDERS: ATTEND Internal Medicine Cardiovascular Disease
DX: I13.0 Hypertensive heart and chronic kidney disease with heart failure and stage 1 through stage 4 chronic kidney disease, or unspecified chronic kidney disease (principal); E11.22 Type 2 diabetes mellitus with diabetic chronic kidney disease; N18.31 Chronic kidney disease, stage 3a; I50.42 Chronic combined systolic (congestive) and diastolic (congestive) heart failure; I25.10 Atherosclerotic heart disease of native coronary artery without angina pectoris; I48.20 Chronic atrial fibrillation, unspecified; J44.9 Chronic obstructive pulmonary disease, unspecified; J96.11 Chronic respiratory failure with hypoxia; E78.5 Hyperlipidemia, unspecified; E03.9 Hypothyroidism, unspecified; E66.01 Morbid (severe) obesity due to excess calories; I25.2 Old myocardial infarction; E11.40 Type 2 diabetes mellitus with diabetic neuropathy, unspecified; E11.51 Type 2 diabetes mellitus with diabetic peripheral angiopathy without gangrene; F41.9 Anxiety disorder, unspecified; Z86.73 Personal history of transient ischemic attack (TIA), and cerebral infarction without residual deficits; Z68.42 Body mass index [BMI] 45.0-49.9, adult; Z79.899 Other long term (current) drug therapy; Z85.46 Personal history of malignant neoplasm of prostate; Z87.891 Personal history of nicotine dependence; Z79.01 Long term (current) use of anticoagulants; Z79.02 Long term (current) use of antithrombotics/antiplatelets
CPT/HCPCS: 96365; 96366; G0463; J1642; J2260

== ENCOUNTER → 2022-03-11 | Outpatient (CLI) | payer MEDICARE, MEDICAID ==
[2022-03-11] VITALS (11 sets, daily range): BP systolic 103–126; BP diastolic 62–80
[2022-03-11 11:54] LABS: Potassium 3.5 mmol/L (3.5-5.1)
== END | disposition home or self-care (01) ==
LOC: CHF HDHVI 09:04
PROVIDERS: ATTEND Internal Medicine Cardiovascular Disease
DX: I50.23 Acute on chronic systolic (congestive) heart failure (principal)
CPT/HCPCS: 36415; 80185; 82565; 83880; 84132; 84520; 96365; 96366; G0463; J1642; J2260

== ENCOUNTER → 2022-03-13 | Outpatient (CLI) | payer MEDICARE, MEDICAID ==
[2022-03-13] VITALS (10 sets, daily range): BP systolic 108–127; BP diastolic 61–90
== END | disposition home or self-care (01) ==
LOC: CHF HDHVI 09:32
PROVIDERS: ATTEND Internal Medicine Cardiovascular Disease
DX: I42.0 Dilated cardiomyopathy (principal); E11.22 Type 2 diabetes mellitus with diabetic chronic kidney disease; I13.0 Hypertensive heart and chronic kidney disease with heart failure and stage 1 through stage 4 chronic kidney disease, or unspecified chronic kidney disease; N18.31 Chronic kidney disease, stage 3a; I50.42 Chronic combined systolic (congestive) and diastolic (congestive) heart failure; F41.9 Anxiety disorder, unspecified; I25.10 Atherosclerotic heart disease of native coronary artery without angina pectoris; I48.20 Chronic atrial fibrillation, unspecified; J44.9 Chronic obstructive pulmonary disease, unspecified; J96.11 Chronic respiratory failure with hypoxia; E78.5 Hyperlipidemia, unspecified; I25.2 Old myocardial infarction; E11.40 Type 2 diabetes mellitus with diabetic neuropathy, unspecified; E11.51 Type 2 diabetes mellitus with diabetic peripheral angiopathy without gangrene; E03.9 Hypothyroidism, unspecified; R53.83 Other fatigue; E66.01 Morbid (severe) obesity due to excess calories; Z68.42 Body mass index [BMI] 45.0-49.9, adult; Z79.899 Other long term (current) drug therapy; Z79.01 Long term (current) use of anticoagulants; Z79.02 Long term (current) use of antithrombotics/antiplatelets; Z87.891 Personal history of nicotine dependence; Z85.46 Personal history of malignant neoplasm of prostate
CPT/HCPCS: 96365; 96366; G0463; J1642; J2260

== ENCOUNTER → 2022-03-27 | Outpatient (CLI) | payer MEDICARE, MEDICAID ==
[2022-03-27] VITALS (11 sets, daily range): BP systolic 100–129; BP diastolic 63–81
[2022-03-27 11:29] LABS: Basophils # (auto) 0 10 ^3/uL (0-0.2); Eosinophils # (auto) 0.1 10 ^3/uL (0-0.8); Lymphocytes # (auto) 1.3 10 ^3/uL (0.4-5.4); Mean Corpuscular Hgb Conc. 29.5 g/dL (32.0-36.0); Mean Corpuscular Volume 74.4 fL (80.0-100.0); Nucleated Red Blood Cells % 0.1 %
[2022-03-27 11:34] LABS: Basophils % (auto) 0.8 % (0.0-2.0); Eosinophils % (auto) 1.7 % (0.0-7.0); Hematocrit 44.3 % (41.0-53.0); Hemoglobin 13.1 g/dL (13.5-17.5); Lymphocytes % (auto) 21.5 % (10.0-50.0); Monocytes # (auto) 0.7 10 ^3/uL (0-1.3); Monocytes % (auto) 12.2 % (0.0-12.0); Neutrophils # (auto) 3.8 10 ^3/uL (1.6-8.6); Neutrophils % (auto) 63.8 % (37.0-80.0); Red Blood Cells 5.95 10^6/uL (4.5-5.90); Red Cell Distribution Width 20.5 % (11.8-14.3); White Blood Cell 5.9 10^3/uL (4.4-10.8)
[2022-03-27 11:39] LABS: Calcium 8.9 mg/dL (8.5-10.1); Magnesium 2.2 mg/dL (1.6-2.6)
[2022-03-27 11:42] LABS: BUN/Creatinine Ratio 12.3
== END | disposition home or self-care (01) ==
LOC: CHF HDHVI 10:14
PROVIDERS: ATTEND Internal Medicine Cardiovascular Disease
DX: I13.0 Hypertensive heart and chronic kidney disease with heart failure and stage 1 through stage 4 chronic kidney disease, or unspecified chronic kidney disease (principal); E11.22 Type 2 diabetes mellitus with diabetic chronic kidney disease; I50.42 Chronic combined systolic (congestive) and diastolic (congestive) heart failure; N18.31 Chronic kidney disease, stage 3a; I25.10 Atherosclerotic heart disease of native coronary artery without angina pectoris; I25.2 Old myocardial infarction; I48.20 Chronic atrial fibrillation, unspecified; J44.9 Chronic obstructive pulmonary disease, unspecified; J96.10 Chronic respiratory failure, unspecified whether with hypoxia or hypercapnia; E11.40 Type 2 diabetes mellitus with diabetic neuropathy, unspecified; E11.51 Type 2 diabetes mellitus with diabetic peripheral angiopathy without gangrene; E78.5 Hyperlipidemia, unspecified; E03.9 Hypothyroidism, unspecified; Z79.899 Other long term (current) drug therapy; Z87.891 Personal history of nicotine dependence; Z85.46 Personal history of malignant neoplasm of prostate; Z79.01 Long term (current) use of anticoagulants; Z79.02 Long term (current) use of antithrombotics/antiplatelets; E66.01 Morbid (severe) obesity due to excess calories; Z68.42 Body mass index [BMI] 45.0-49.9, adult; Z95.810 Presence of automatic (implantable) cardiac defibrillator; Z95.5 Presence of coronary angioplasty implant and graft; Z86.73 Personal history of transient ischemic attack (TIA), and cerebral infarction without residual deficits
CPT/HCPCS: 36415; 80048; 83735; 83880; 85025; 96365; 96366; G0463; J1642; J2260

== ENCOUNTER → 2022-04-01 | Outpatient (CLI) | payer MEDICARE, MEDICAID ==
[2022-04-01] VITALS (11 sets, daily range): BP systolic 98–133; BP diastolic 56–89
[2022-04-01 11:54] LABS: Potassium 3.6 mmol/L (3.5-5.1)
[2022-04-01 11:59] LABS: Albumin 2.9 g/dL (3.4-5.0); BUN/Creatinine Ratio 11.5; Bilirubin, Total 0.4 mg/dL (0.2-1.0); Calcium 8.4 mg/dL (8.5-10.1); Total Protein 7.8 g/dL (6.4-8.2)
== END | disposition home or self-care (01) ==
LOC: CHF HDHVI 08:57
PROVIDERS: ATTEND Internal Medicine Cardiovascular Disease
DX: I13.0 Hypertensive heart and chronic kidney disease with heart failure and stage 1 through stage 4 chronic kidney disease, or unspecified chronic kidney disease (principal); E11.22 Type 2 diabetes mellitus with diabetic chronic kidney disease; N18.31 Chronic kidney disease, stage 3a; I50.42 Chronic combined systolic (congestive) and diastolic (congestive) heart failure; I25.10 Atherosclerotic heart disease of native coronary artery without angina pectoris; I48.20 Chronic atrial fibrillation, unspecified; J44.9 Chronic obstructive pulmonary disease, unspecified; J96.11 Chronic respiratory failure with hypoxia; E78.5 Hyperlipidemia, unspecified; E03.9 Hypothyroidism, unspecified; E66.01 Morbid (severe) obesity due to excess calories; I25.2 Old myocardial infarction; E11.51 Type 2 diabetes mellitus with diabetic peripheral angiopathy without gangrene; E11.40 Type 2 diabetes mellitus with diabetic neuropathy, unspecified; F41.9 Anxiety disorder, unspecified; Z68.42 Body mass index [BMI] 45.0-49.9, adult; Z87.891 Personal history of nicotine dependence; Z79.01 Long term (current) use of anticoagulants; Z79.02 Long term (current) use of antithrombotics/antiplatelets; Z79.899 Other long term (current) drug therapy; Z85.46 Personal history of malignant neoplasm of prostate; Z86.73 Personal history of transient ischemic attack (TIA), and cerebral infarction without residual deficits; Z95.810 Presence of automatic (implantable) cardiac defibrillator
CPT/HCPCS: 36415; 80053; 83880; 96365; 96366; G0463; J1642; J2260

== ENCOUNTER → 2022-04-03 | Outpatient (CLI) | payer MEDICARE, MEDICAID ==
[2022-04-03] VITALS (12 sets, daily range): BP systolic 97–130; BP diastolic 53–87
[~2022-04-03] MED LIST changes: +CYANOCOBALAMIN (B-12) 1000 MCG/1 ML VIAL IM ONE; +CYANOCOBALAMIN (B-12) 1000 MCG/1 ML VIAL ONE; +ONDANSETRON HCL 4 MG/2 ML VIAL IV ONE; +ONDANSETRON HCL 4 MG/2 ML VIAL ONE
== END | disposition home or self-care (01) ==
LOC: CHF HDHVI 08:18
PROVIDERS: ATTEND Internal Medicine Cardiovascular Disease
DX: I13.0 Hypertensive heart and chronic kidney disease with heart failure and stage 1 through stage 4 chronic kidney disease, or unspecified chronic kidney disease (principal); E11.22 Type 2 diabetes mellitus with diabetic chronic kidney disease; I50.42 Chronic combined systolic (congestive) and diastolic (congestive) heart failure; N18.31 Chronic kidney disease, stage 3a; I25.10 Atherosclerotic heart disease of native coronary artery without angina pectoris; I25.2 Old myocardial infarction; I48.20 Chronic atrial fibrillation, unspecified; J44.9 Chronic obstructive pulmonary disease, unspecified; J96.10 Chronic respiratory failure, unspecified whether with hypoxia or hypercapnia; E11.40 Type 2 diabetes mellitus with diabetic neuropathy, unspecified; E11.51 Type 2 diabetes mellitus with diabetic peripheral angiopathy without gangrene; E78.5 Hyperlipidemia, unspecified; E03.9 Hypothyroidism, unspecified; F41.9 Anxiety disorder, unspecified; E66.01 Morbid (severe) obesity due to excess calories; Z68.42 Body mass index [BMI] 45.0-49.9, adult; Z79.01 Long term (current) use of anticoagulants; Z79.02 Long term (current) use of antithrombotics/antiplatelets; Z79.899 Other long term (current) drug therapy; Z87.891 Personal history of nicotine dependence; Z85.46 Personal history of malignant neoplasm of prostate; Z95.810 Presence of automatic (implantable) cardiac defibrillator; Z86.73 Personal history of transient ischemic attack (TIA), and cerebral infarction without residual deficits
CPT/HCPCS: 96365; 96366; 96372; 96375; G0463; J1642; J2260; J2405; J3420

== ENCOUNTER → 2022-04-15 | Outpatient (CLI) | payer MEDICARE, MEDICAID ==
[2022-04-15] VITALS (10 sets, daily range): BP systolic 107–136; BP diastolic 72–82
[~2022-04-15] VITALS: Ht 30.5 cm; Wt 0.5 kg
[~2022-04-15] MED LIST changes: +ACETAMINOPHEN 500 MG TAB PO ONE; -CYANOCOBALAMIN (B-12) 1000 MCG/1 ML VIAL IM ONE; -CYANOCOBALAMIN (B-12) 1000 MCG/1 ML VIAL ONE; -ONDANSETRON HCL 4 MG/2 ML VIAL IV ONE; -ONDANSETRON HCL 4 MG/2 ML VIAL ONE; +metOLazone 5 MG TAB ONE; +metOLazone 5 MG TAB PO ONE
[2022-04-15 11:57] LABS: Potassium 3.4 mmol/L (3.5-5.1)
[2022-04-15 12:16] LABS: BUN/Creatinine Ratio 14.1; Calcium 8.9 mg/dL (8.5-10.1); Magnesium 2.1 mg/dL (1.6-2.6)
== END | disposition home or self-care (01) ==
LOC: CHF HDHVI 09:11
PROVIDERS: ATTEND Internal Medicine Cardiovascular Disease
DX: I13.0 Hypertensive heart and chronic kidney disease with heart failure and stage 1 through stage 4 chronic kidney disease, or unspecified chronic kidney disease (principal); E11.22 Type 2 diabetes mellitus with diabetic chronic kidney disease; N18.31 Chronic kidney disease, stage 3a; I50.42 Chronic combined systolic (congestive) and diastolic (congestive) heart failure; I42.0 Dilated cardiomyopathy; I25.10 Atherosclerotic heart disease of native coronary artery without angina pectoris; I48.20 Chronic atrial fibrillation, unspecified; F41.9 Anxiety disorder, unspecified; J44.9 Chronic obstructive pulmonary disease, unspecified; J96.11 Chronic respiratory failure with hypoxia; E78.5 Hyperlipidemia, unspecified; E03.9 Hypothyroidism, unspecified; E66.01 Morbid (severe) obesity due to excess calories; I25.2 Old myocardial infarction; E11.40 Type 2 diabetes mellitus with diabetic neuropathy, unspecified; E11.51 Type 2 diabetes mellitus with diabetic peripheral angiopathy without gangrene; Z95.810 Presence of automatic (implantable) cardiac defibrillator; Z68.42 Body mass index [BMI] 45.0-49.9, adult; Z79.01 Long term (current) use of anticoagulants; Z79.02 Long term (current) use of antithrombotics/antiplatelets; Z79.899 Other long term (current) drug therapy; Z87.891 Personal history of nicotine dependence; Z85.46 Personal history of malignant neoplasm of prostate; Z86.73 Personal history of transient ischemic attack (TIA), and cerebral infarction without residual deficits
CPT/HCPCS: 36415; 80048; 83735; 83880; 96365; 96366; G0463; J1642; J2260

== ENCOUNTER → 2022-04-17 | Outpatient (CLI) | payer MEDICARE, MEDICAID ==
[2022-04-17] VITALS (11 sets, daily range): BP systolic 104–121; BP diastolic 64–80
[~2022-04-17] MED LIST changes: -ACETAMINOPHEN 500 MG TAB PO ONE; -metOLazone 5 MG TAB ONE; -metOLazone 5 MG TAB PO ONE
== END | disposition home or self-care (01) ==
LOC: CHF HDHVI 09:14
PROVIDERS: ATTEND Internal Medicine Cardiovascular Disease
DX: I13.0 Hypertensive heart and chronic kidney disease with heart failure and stage 1 through stage 4 chronic kidney disease, or unspecified chronic kidney disease (principal); E11.22 Type 2 diabetes mellitus with diabetic chronic kidney disease; N18.31 Chronic kidney disease, stage 3a; I50.42 Chronic combined systolic (congestive) and diastolic (congestive) heart failure; F41.9 Anxiety disorder, unspecified; I25.10 Atherosclerotic heart disease of native coronary artery without angina pectoris; I48.20 Chronic atrial fibrillation, unspecified; J44.9 Chronic obstructive pulmonary disease, unspecified; J96.11 Chronic respiratory failure with hypoxia; E78.5 Hyperlipidemia, unspecified; E03.9 Hypothyroidism, unspecified; I25.2 Old myocardial infarction; E11.40 Type 2 diabetes mellitus with diabetic neuropathy, unspecified; E11.51 Type 2 diabetes mellitus with diabetic peripheral angiopathy without gangrene; E66.01 Morbid (severe) obesity due to excess calories; Z86.73 Personal history of transient ischemic attack (TIA), and cerebral infarction without residual deficits; Z68.42 Body mass index [BMI] 45.0-49.9, adult; Z87.891 Personal history of nicotine dependence; Z85.46 Personal history of malignant neoplasm of prostate; Z79.01 Long term (current) use of anticoagulants; Z79.02 Long term (current) use of antithrombotics/antiplatelets; Z79.899 Other long term (current) drug therapy
CPT/HCPCS: 36415; 84132; 96365; 96366; G0463; J1642; J2260

== ENCOUNTER → 2022-04-22 | Outpatient (CLI) | payer MEDICARE, MEDICAID ==
[2022-04-22] VITALS (14 sets, daily range): BP systolic 93–132; BP diastolic 55–74
[~2022-04-22] VITALS: Ht 172.7 cm; Wt 109.7 kg
[~2022-04-22] MED LIST changes: +POTASSIUM CHL 20 Meq TABLET PO ONE; +TESTOSTERONE CYPIONATE 200 MG/ML 1ML VIAL IM ONE
[2022-04-22 13:59] LABS: Basophils # (auto) 0 10 ^3/uL (0-0.2); Basophils % (auto) 0.2 % (0.0-2.0); Eosinophils # (auto) 0.1 10 ^3/uL (0-0.8); Eosinophils % (auto) 1.1 % (0.0-7.0); Hematocrit 44.2 % (41.0-53.0); Hemoglobin 12.9 g/dL (13.5-17.5); Lymphocytes # (auto) 1.6 10 ^3/uL (0.4-5.4); Lymphocytes % (auto) 21.5 % (10.0-50.0); Mean Corpuscular Hemoglobin 21.3 pg (28.0-32.0); Monocytes # (auto) 0.9 10 ^3/uL (0-1.3); Monocytes % (auto) 11.4 % (0.0-12.0); Neutrophils # (auto) 4.9 10 ^3/uL (1.6-8.6); Neutrophils % (auto) 65.8 % (37.0-80.0); Nucleated Red Blood Cells % 0.1 %; Red Blood Cells 6.04 10^6/uL (4.5-5.90); Red Cell Distribution Width 20.9 % (11.8-14.3); White Blood Cell 7.5 10^3/uL (4.4-10.8)
[2022-04-22 14:03] LABS: Mean Corpuscular Hgb Conc. 29.1 g/dL (32.0-36.0); Mean Corpuscular Volume 73.3 fL (80.0-100.0)
[2022-04-22 14:21] LABS: Potassium 3.7 mmol/L (3.5-5.1)
[2022-04-22 14:25] LABS: Magnesium 1.9 mg/dL (1.6-2.6)
== END | disposition home or self-care (01) ==
LOC: CHF HDHVI 08:28
PROVIDERS: ATTEND Internal Medicine Cardiovascular Disease
DX: I13.0 Hypertensive heart and chronic kidney disease with heart failure and stage 1 through stage 4 chronic kidney disease, or unspecified chronic kidney disease (principal); E11.22 Type 2 diabetes mellitus with diabetic chronic kidney disease; E11.40 Type 2 diabetes mellitus with diabetic neuropathy, unspecified; E11.51 Type 2 diabetes mellitus with diabetic peripheral angiopathy without gangrene; N18.31 Chronic kidney disease, stage 3a; I50.42 Chronic combined systolic (congestive) and diastolic (congestive) heart failure; E29.1 Testicular hypofunction; I25.10 Atherosclerotic heart disease of native coronary artery without angina pectoris; J44.9 Chronic obstructive pulmonary disease, unspecified; I48.20 Chronic atrial fibrillation, unspecified; E03.9 Hypothyroidism, unspecified; I25.2 Old myocardial infarction; E66.01 Morbid (severe) obesity due to excess calories; Z79.01 Long term (current) use of anticoagulants; Z79.02 Long term (current) use of antithrombotics/antiplatelets; Z79.899 Other long term (current) drug therapy; Z95.810 Presence of automatic (implantable) cardiac defibrillator; Z87.891 Personal history of nicotine dependence; Z86.73 Personal history of transient ischemic attack (TIA), and cerebral infarction without residual deficits; Z85.46 Personal history of malignant neoplasm of prostate; Z68.42 Body mass index [BMI] 45.0-49.9, adult
CPT/HCPCS: 36415; 83735; 83880; 84132; 85025; 96365; 96366; 96372; G0463; J1071; J1642; J2260

== ENCOUNTER → 2022-04-24 | Outpatient (CLI) | payer MEDICARE, MEDICAID ==
[~2022-04-24] VITALS: Ht 172.7 cm; Wt 109.9 kg
[2022-04-24] VITALS (11 sets, daily range): BP systolic 92–119; BP diastolic 54–79
[~2022-04-24] MED LIST changes: -POTASSIUM CHL 20 Meq TABLET PO ONE; -TESTOSTERONE CYPIONATE 200 MG/ML 1ML VIAL IM ONE
== END | disposition home or self-care (01) ==
LOC: CHF HDHVI 08:31
PROVIDERS: ATTEND Internal Medicine Cardiovascular Disease
DX: I13.0 Hypertensive heart and chronic kidney disease with heart failure and stage 1 through stage 4 chronic kidney disease, or unspecified chronic kidney disease (principal); E11.22 Type 2 diabetes mellitus with diabetic chronic kidney disease; N18.31 Chronic kidney disease, stage 3a; I50.42 Chronic combined systolic (congestive) and diastolic (congestive) heart failure; I25.10 Atherosclerotic heart disease of native coronary artery without angina pectoris; I48.20 Chronic atrial fibrillation, unspecified; J44.9 Chronic obstructive pulmonary disease, unspecified; E78.5 Hyperlipidemia, unspecified; E03.9 Hypothyroidism, unspecified; E66.01 Morbid (severe) obesity due to excess calories; I25.2 Old myocardial infarction; E11.40 Type 2 diabetes mellitus with diabetic neuropathy, unspecified; E11.51 Type 2 diabetes mellitus with diabetic peripheral angiopathy without gangrene; F41.9 Anxiety disorder, unspecified; J96.11 Chronic respiratory failure with hypoxia; Z95.1 Presence of aortocoronary bypass graft; Z68.42 Body mass index [BMI] 45.0-49.9, adult; Z79.01 Long term (current) use of anticoagulants; Z79.02 Long term (current) use of antithrombotics/antiplatelets; Z79.899 Other long term (current) drug therapy; Z85.46 Personal history of malignant neoplasm of prostate; Z87.891 Personal history of nicotine dependence; Z86.73 Personal history of transient ischemic attack (TIA), and cerebral infarction without residual deficits; Z95.810 Presence of automatic (implantable) cardiac defibrillator
CPT/HCPCS: 96365; 96366; G0463; J1642; J2260

== ENCOUNTER → 2022-04-29 | Outpatient (CLI) | payer MEDICARE, MEDICAID ==
[2022-04-29] VITALS (11 sets, daily range): BP systolic 103–119; BP diastolic 56–86
[~2022-04-29] MED LIST changes: +ACETAMINOPHEN 500 MG TAB PO ONE; +BUMETANIDE 1mg/4ml VIAL (0.25mg/ml) ONE; +BUMETANIDE 2.5mg/10ml (0.25 mg/ml) INJ IV ONE; +MULTIPLE VIT 10 ML IV ONE; +POTASSIUM CHL 10 Meq TABLET PO ONE; +POTASSIUM CHL 20 Meq TABLET PO ONE; +metOLazone 5 MG TAB ONE; +metOLazone 5 MG TAB PO ONE
[2022-04-29 11:49] LABS: BUN/Creatinine Ratio 20.4; Calcium 8.8 mg/dL (8.5-10.1); Potassium 3.4 mmol/L (3.5-5.1)
== END | disposition home or self-care (01) ==
LOC: CHF HDHVI 10:38
PROVIDERS: ATTEND Internal Medicine Cardiovascular Disease
DX: I13.0 Hypertensive heart and chronic kidney disease with heart failure and stage 1 through stage 4 chronic kidney disease, or unspecified chronic kidney disease (principal); E11.22 Type 2 diabetes mellitus with diabetic chronic kidney disease; N18.31 Chronic kidney disease, stage 3a; I50.42 Chronic combined systolic (congestive) and diastolic (congestive) heart failure; R56.9 Unspecified convulsions; I25.5 Ischemic cardiomyopathy; I25.10 Atherosclerotic heart disease of native coronary artery without angina pectoris; I48.20 Chronic atrial fibrillation, unspecified; J44.9 Chronic obstructive pulmonary disease, unspecified; J96.11 Chronic respiratory failure with hypoxia; E78.5 Hyperlipidemia, unspecified; E03.9 Hypothyroidism, unspecified; E66.01 Morbid (severe) obesity due to excess calories; I25.2 Old myocardial infarction; E11.40 Type 2 diabetes mellitus with diabetic neuropathy, unspecified; E11.51 Type 2 diabetes mellitus with diabetic peripheral angiopathy without gangrene; F41.9 Anxiety disorder, unspecified; Z79.899 Other long term (current) drug therapy; Z85.46 Personal history of malignant neoplasm of prostate; Z87.891 Personal history of nicotine dependence; Z86.73 Personal history of transient ischemic attack (TIA), and cerebral infarction without residual deficits; Z95.810 Presence of automatic (implantable) cardiac defibrillator; Z95.1 Presence of aortocoronary bypass graft; Z68.42 Body mass index [BMI] 45.0-49.9, adult; Z79.01 Long term (current) use of anticoagulants; Z79.02 Long term (current) use of antithrombotics/antiplatelets
CPT/HCPCS: 36415; 80048; 83735; 83880; 96365; 96366; 96375; G0463; J1642; J2260; J3490

== ENCOUNTER → 2022-05-01 | Outpatient (CLI) | payer MEDICARE, MEDICAID ==
[2022-05-01] VITALS (12 sets, daily range): BP systolic 98–118; BP diastolic 55–79
[~2022-05-01] MED LIST changes: -BUMETANIDE 1mg/4ml VIAL (0.25mg/ml) ONE; -BUMETANIDE 2.5mg/10ml (0.25 mg/ml) INJ IV ONE; +CYANOCOBALAMIN (B-12) 1000 MCG/1 ML VIAL IM ONE; +CYANOCOBALAMIN (B-12) 1000 MCG/1 ML VIAL ONE; -MULTIPLE VIT 10 ML IV ONE; +POTASSIUM EFFERVESENT TAB 25 MEQ ONE; +POTASSIUM EFFERVESENT TAB 25 MEQ PO ONE; -metOLazone 5 MG TAB ONE; -metOLazone 5 MG TAB PO ONE
[2022-05-01 13:06] LABS: Albumin 3.2 g/dL (3.4-5.0); Calcium 9.1 mg/dL (8.5-10.1); Magnesium 2.4 mg/dL (1.6-2.6)
[2022-05-01 13:10] LABS: BUN/Creatinine Ratio 18.6; Bilirubin, Total 0.4 mg/dL (0.2-1.0); Total Protein 8.4 g/dL (6.4-8.2)
[2022-05-01 13:15] LABS: Potassium 2.8 mmol/L (3.5-5.1)
== END | disposition home or self-care (01) ==
LOC: CHF HDHVI 10:51
PROVIDERS: ATTEND Internal Medicine Cardiovascular Disease
DX: I13.0 Hypertensive heart and chronic kidney disease with heart failure and stage 1 through stage 4 chronic kidney disease, or unspecified chronic kidney disease (principal); E11.22 Type 2 diabetes mellitus with diabetic chronic kidney disease; N18.31 Chronic kidney disease, stage 3a; I50.42 Chronic combined systolic (congestive) and diastolic (congestive) heart failure; I25.10 Atherosclerotic heart disease of native coronary artery without angina pectoris; I25.5 Ischemic cardiomyopathy; R56.9 Unspecified convulsions; I48.20 Chronic atrial fibrillation, unspecified; J44.9 Chronic obstructive pulmonary disease, unspecified; J96.11 Chronic respiratory failure with hypoxia; E78.5 Hyperlipidemia, unspecified; E03.9 Hypothyroidism, unspecified; E66.01 Morbid (severe) obesity due to excess calories; E11.40 Type 2 diabetes mellitus with diabetic neuropathy, unspecified; E11.51 Type 2 diabetes mellitus with diabetic peripheral angiopathy without gangrene; I25.2 Old myocardial infarction; Z68.42 Body mass index [BMI] 45.0-49.9, adult; Z79.01 Long term (current) use of anticoagulants; Z79.02 Long term (current) use of antithrombotics/antiplatelets; Z79.899 Other long term (current) drug therapy; Z85.46 Personal history of malignant neoplasm of prostate; Z87.891 Personal history of nicotine dependence; Z95.810 Presence of automatic (implantable) cardiac defibrillator; Z86.73 Personal history of transient ischemic attack (TIA), and cerebral infarction without residual deficits
CPT/HCPCS: 36415; 80053; 83735; 93005; 96365; 96366; 96372; G0463; J1642; J2260; J3420

== ENCOUNTER → 2022-05-06 | Outpatient (CLI) | payer MEDICARE, MEDICAID ==
[~2022-05-06] VITALS: Ht 172.7 cm; Wt 112.3 kg
[2022-05-06] VITALS (12 sets, daily range): BP systolic 100–133; BP diastolic 53–73
[~2022-05-06] MED LIST changes: -ACETAMINOPHEN 500 MG TAB PO ONE; +BUMETANIDE 1mg/4ml VIAL (0.25mg/ml) ONE; +BUMETANIDE 2.5mg/10ml (0.25 mg/ml) INJ IV ONE; -CYANOCOBALAMIN (B-12) 1000 MCG/1 ML VIAL IM ONE; -CYANOCOBALAMIN (B-12) 1000 MCG/1 ML VIAL ONE; -POTASSIUM EFFERVESENT TAB 25 MEQ ONE; -POTASSIUM EFFERVESENT TAB 25 MEQ PO ONE
[2022-05-06 12:45] LABS: Basophils # (auto) 0 10 ^3/uL (0-0.2); Eosinophils # (auto) 0.1 10 ^3/uL (0-0.8); Lymphocytes # (auto) 1.2 10 ^3/uL (0.4-5.4); White Blood Cell 5.7 10^3/uL (4.4-10.8)
[2022-05-06 12:50] LABS: Basophils % (auto) 0.9 % (0.0-2.0); Eosinophils % (auto) 1.9 % (0.0-7.0); Hematocrit 43.2 % (41.0-53.0); Hemoglobin 12.6 g/dL (13.5-17.5); Lymphocytes % (auto) 20.7 % (10.0-50.0); Mean Corpuscular Hemoglobin 20.9 pg (28.0-32.0); Mean Corpuscular Hgb Conc. 29.2 g/dL (32.0-36.0); Mean Corpuscular Volume 71.7 fL (80.0-100.0); Monocytes # (auto) 0.5 10 ^3/uL (0-1.3); Monocytes % (auto) 9.5 % (0.0-12.0); Neutrophils # (auto) 3.8 10 ^3/uL (1.6-8.6); Nucleated Red Blood Cells % 0.5 %; Red Blood Cells 6.02 10^6/uL (4.5-5.90)
[2022-05-06 12:53] LABS: Red Cell Distribution Width 20.8 % (11.8-14.3)
[2022-05-06 12:56] LABS: BUN/Creatinine Ratio 12.8; Calcium 8.7 mg/dL (8.5-10.1); Magnesium 1.8 mg/dL (1.6-2.6); Potassium 3.6 mmol/L (3.5-5.1)
== END | disposition home or self-care (01) ==
LOC: CHF HDHVI 10:52
PROVIDERS: ATTEND Internal Medicine Cardiovascular Disease
DX: I13.0 Hypertensive heart and chronic kidney disease with heart failure and stage 1 through stage 4 chronic kidney disease, or unspecified chronic kidney disease (principal); E11.22 Type 2 diabetes mellitus with diabetic chronic kidney disease; N18.31 Chronic kidney disease, stage 3a; I50.42 Chronic combined systolic (congestive) and diastolic (congestive) heart failure; R56.9 Unspecified convulsions; I25.10 Atherosclerotic heart disease of native coronary artery without angina pectoris; I48.20 Chronic atrial fibrillation, unspecified; J44.9 Chronic obstructive pulmonary disease, unspecified; J96.11 Chronic respiratory failure with hypoxia; E78.5 Hyperlipidemia, unspecified; E03.9 Hypothyroidism, unspecified; E66.01 Morbid (severe) obesity due to excess calories; I25.2 Old myocardial infarction; E11.40 Type 2 diabetes mellitus with diabetic neuropathy, unspecified; E11.51 Type 2 diabetes mellitus with diabetic peripheral angiopathy without gangrene; F41.9 Anxiety disorder, unspecified; Z68.42 Body mass index [BMI] 45.0-49.9, adult; Z79.01 Long term (current) use of anticoagulants; Z79.02 Long term (current) use of antithrombotics/antiplatelets; Z79.899 Other long term (current) drug therapy; Z85.46 Personal history of malignant neoplasm of prostate; Z87.891 Personal history of nicotine dependence; Z86.73 Personal history of transient ischemic attack (TIA), and cerebral infarction without residual deficits; Z95.810 Presence of automatic (implantable) cardiac defibrillator
CPT/HCPCS: 36415; 80048; 83735; 83880; 85025; 96365; 96366; 96375; G0463; J1642; J2260; J3490

== ENCOUNTER → 2022-05-08 | Outpatient (CLI) | payer MEDICARE, MEDICAID ==
[2022-05-08] VITALS (9 sets, daily range): BP systolic 108–136; BP diastolic 64–89
[~2022-05-08] MED LIST changes: -BUMETANIDE 1mg/4ml VIAL (0.25mg/ml) ONE; -BUMETANIDE 2.5mg/10ml (0.25 mg/ml) INJ IV ONE; -POTASSIUM CHL 10 Meq TABLET PO ONE; -POTASSIUM CHL 20 Meq TABLET PO ONE
== END | disposition home or self-care (01) ==
LOC: CHF HDHVI 10:57
PROVIDERS: ATTEND Internal Medicine Cardiovascular Disease
DX: I13.0 Hypertensive heart and chronic kidney disease with heart failure and stage 1 through stage 4 chronic kidney disease, or unspecified chronic kidney disease (principal); E11.22 Type 2 diabetes mellitus with diabetic chronic kidney disease; N18.31 Chronic kidney disease, stage 3a; I50.42 Chronic combined systolic (congestive) and diastolic (congestive) heart failure; I25.5 Ischemic cardiomyopathy; R56.9 Unspecified convulsions; F41.9 Anxiety disorder, unspecified; I25.10 Atherosclerotic heart disease of native coronary artery without angina pectoris; I48.20 Chronic atrial fibrillation, unspecified; J44.9 Chronic obstructive pulmonary disease, unspecified; J96.11 Chronic respiratory failure with hypoxia; E78.5 Hyperlipidemia, unspecified; E03.9 Hypothyroidism, unspecified; E66.01 Morbid (severe) obesity due to excess calories; I25.2 Old myocardial infarction; E11.40 Type 2 diabetes mellitus with diabetic neuropathy, unspecified; E11.51 Type 2 diabetes mellitus with diabetic peripheral angiopathy without gangrene; Z79.899 Other long term (current) drug therapy; Z87.891 Personal history of nicotine dependence; Z85.46 Personal history of malignant neoplasm of prostate; Z86.73 Personal history of transient ischemic attack (TIA), and cerebral infarction without residual deficits; Z95.810 Presence of automatic (implantable) cardiac defibrillator; Z95.1 Presence of aortocoronary bypass graft; Z79.01 Long term (current) use of anticoagulants; Z68.42 Body mass index [BMI] 45.0-49.9, adult; Z79.02 Long term (current) use of antithrombotics/antiplatelets
CPT/HCPCS: 96365; 96366; G0463; J1642; J2260

== ENCOUNTER → 2022-05-13 | Outpatient (CLI) | payer MEDICARE, MEDICAID ==
[2022-05-13] VITALS (12 sets, daily range): BP systolic 98–128; BP diastolic 54–82
[~2022-05-13] VITALS: Ht 172.7 cm; Wt 110.4 kg
[2022-05-13 17:13] LABS: Albumin 3.3 g/dL (3.4-5.0); Potassium 3.4 mmol/L (3.5-5.1)
[2022-05-13 17:17] LABS: BUN/Creatinine Ratio 20.3; Bilirubin, Total 0.5 mg/dL (0.2-1.0); Calcium 8.6 mg/dL (8.5-10.1); Magnesium 1.8 mg/dL (1.6-2.6); Total Protein 8.1 g/dL (6.4-8.2)
== END | disposition home or self-care (01) ==
LOC: CHF HDHVI 09:51
PROVIDERS: ATTEND Internal Medicine Cardiovascular Disease
DX: I13.0 Hypertensive heart and chronic kidney disease with heart failure and stage 1 through stage 4 chronic kidney disease, or unspecified chronic kidney disease (principal); E11.22 Type 2 diabetes mellitus with diabetic chronic kidney disease; N18.31 Chronic kidney disease, stage 3a; I50.42 Chronic combined systolic (congestive) and diastolic (congestive) heart failure; F41.9 Anxiety disorder, unspecified; I25.10 Atherosclerotic heart disease of native coronary artery without angina pectoris; I48.20 Chronic atrial fibrillation, unspecified; J44.9 Chronic obstructive pulmonary disease, unspecified; J96.11 Chronic respiratory failure with hypoxia; E78.5 Hyperlipidemia, unspecified; E03.9 Hypothyroidism, unspecified; E66.01 Morbid (severe) obesity due to excess calories; I25.2 Old myocardial infarction; E11.40 Type 2 diabetes mellitus with diabetic neuropathy, unspecified; E11.51 Type 2 diabetes mellitus with diabetic peripheral angiopathy without gangrene; Z87.891 Personal history of nicotine dependence; Z86.73 Personal history of transient ischemic attack (TIA), and cerebral infarction without residual deficits; Z68.42 Body mass index [BMI] 45.0-49.9, adult; Z79.01 Long term (current) use of anticoagulants; Z79.02 Long term (current) use of antithrombotics/antiplatelets; Z79.899 Other long term (current) drug therapy; Z85.46 Personal history of malignant neoplasm of prostate; Z95.810 Presence of automatic (implantable) cardiac defibrillator
CPT/HCPCS: 36415; 80053; 83735; 83880; 96365; 96366; G0463; J1642; J2260

== ENCOUNTER → 2022-05-15 | Outpatient (CLI) | payer MEDICARE, MEDICAID ==
[2022-05-15] VITALS (11 sets, daily range): BP systolic 106–135; BP diastolic 67–80
[~2022-05-15] MED LIST changes: +POTASSIUM CHL 20 Meq TABLET PO ONE
== END | disposition home or self-care (01) ==
LOC: CHF HDHVI 11:18
PROVIDERS: ATTEND Internal Medicine Cardiovascular Disease
DX: I13.0 Hypertensive heart and chronic kidney disease with heart failure and stage 1 through stage 4 chronic kidney disease, or unspecified chronic kidney disease (principal); E11.22 Type 2 diabetes mellitus with diabetic chronic kidney disease; N18.31 Chronic kidney disease, stage 3a; I50.42 Chronic combined systolic (congestive) and diastolic (congestive) heart failure; E87.6 Hypokalemia; R56.9 Unspecified convulsions; E66.01 Morbid (severe) obesity due to excess calories; F41.9 Anxiety disorder, unspecified; I25.10 Atherosclerotic heart disease of native coronary artery without angina pectoris; I48.20 Chronic atrial fibrillation, unspecified; J44.9 Chronic obstructive pulmonary disease, unspecified; J96.11 Chronic respiratory failure with hypoxia; E11.40 Type 2 diabetes mellitus with diabetic neuropathy, unspecified; E11.51 Type 2 diabetes mellitus with diabetic peripheral angiopathy without gangrene; E78.5 Hyperlipidemia, unspecified; I25.2 Old myocardial infarction; Z79.01 Long term (current) use of anticoagulants; Z79.02 Long term (current) use of antithrombotics/antiplatelets; Z79.899 Other long term (current) drug therapy; Z85.46 Personal history of malignant neoplasm of prostate; Z87.891 Personal history of nicotine dependence; Z86.73 Personal history of transient ischemic attack (TIA), and cerebral infarction without residual deficits; Z95.810 Presence of automatic (implantable) cardiac defibrillator; Z68.42 Body mass index [BMI] 45.0-49.9, adult
CPT/HCPCS: 36415; 84132; 96365; 96366; G0463; J1642; J2260

== ENCOUNTER → 2022-05-22 | Outpatient (CLI) | payer MEDICARE, MEDICAID ==
[2022-05-22] VITALS (12 sets, daily range): BP systolic 91–132; BP diastolic 53–86
[~2022-05-22] MED LIST changes: -POTASSIUM CHL 20 Meq TABLET PO ONE
== END | disposition home or self-care (01) ==
LOC: CHF HDHVI 08:57
PROVIDERS: ATTEND Internal Medicine Cardiovascular Disease
DX: I13.0 Hypertensive heart and chronic kidney disease with heart failure and stage 1 through stage 4 chronic kidney disease, or unspecified chronic kidney disease (principal); E11.22 Type 2 diabetes mellitus with diabetic chronic kidney disease; N18.31 Chronic kidney disease, stage 3a; I50.42 Chronic combined systolic (congestive) and diastolic (congestive) heart failure; R56.9 Unspecified convulsions; I42.0 Dilated cardiomyopathy; F41.9 Anxiety disorder, unspecified; I25.10 Atherosclerotic heart disease of native coronary artery without angina pectoris; I48.20 Chronic atrial fibrillation, unspecified; J44.9 Chronic obstructive pulmonary disease, unspecified; J96.11 Chronic respiratory failure with hypoxia; E78.5 Hyperlipidemia, unspecified; E11.40 Type 2 diabetes mellitus with diabetic neuropathy, unspecified; E11.51 Type 2 diabetes mellitus with diabetic peripheral angiopathy without gangrene; I25.2 Old myocardial infarction; E03.9 Hypothyroidism, unspecified; E66.01 Morbid (severe) obesity due to excess calories; Z68.42 Body mass index [BMI] 45.0-49.9, adult; Z85.46 Personal history of malignant neoplasm of prostate; Z79.01 Long term (current) use of anticoagulants; Z79.02 Long term (current) use of antithrombotics/antiplatelets; Z79.899 Other long term (current) drug therapy; Z87.891 Personal history of nicotine dependence; Z86.73 Personal history of transient ischemic attack (TIA), and cerebral infarction without residual deficits
CPT/HCPCS: 96365; 96366; G0463; J1642; J2260

== ENCOUNTER → 2022-05-29 | Outpatient (CLI) | payer MEDICARE, MEDICAID ==
[2022-05-29] VITALS (12 sets, daily range): BP systolic 106–149; BP diastolic 66–89
[~2022-05-29] MED LIST changes: +POTASSIUM CHL 20 Meq TABLET PO ONE
[2022-05-29 11:56] LABS: BUN/Creatinine Ratio 16.9; Calcium 9.2 mg/dL (8.5-10.1); Magnesium 2.2 mg/dL (1.6-2.6); Potassium 3.1 mmol/L (3.5-5.1)
== END | disposition home or self-care (01) ==
LOC: CHF HDHVI 10:03
PROVIDERS: ATTEND Internal Medicine Cardiovascular Disease
DX: I13.0 Hypertensive heart and chronic kidney disease with heart failure and stage 1 through stage 4 chronic kidney disease, or unspecified chronic kidney disease (principal); E11.22 Type 2 diabetes mellitus with diabetic chronic kidney disease; N18.31 Chronic kidney disease, stage 3a; I50.42 Chronic combined systolic (congestive) and diastolic (congestive) heart failure; R56.9 Unspecified convulsions; I25.5 Ischemic cardiomyopathy; I42.0 Dilated cardiomyopathy; I25.10 Atherosclerotic heart disease of native coronary artery without angina pectoris; F41.9 Anxiety disorder, unspecified; I48.20 Chronic atrial fibrillation, unspecified; J44.9 Chronic obstructive pulmonary disease, unspecified; J96.11 Chronic respiratory failure with hypoxia; E78.5 Hyperlipidemia, unspecified; E03.9 Hypothyroidism, unspecified; E66.01 Morbid (severe) obesity due to excess calories; I25.2 Old myocardial infarction; E11.40 Type 2 diabetes mellitus with diabetic neuropathy, unspecified; E11.51 Type 2 diabetes mellitus with diabetic peripheral angiopathy without gangrene; Z85.46 Personal history of malignant neoplasm of prostate; Z87.891 Personal history of nicotine dependence; Z86.73 Personal history of transient ischemic attack (TIA), and cerebral infarction without residual deficits; Z95.1 Presence of aortocoronary bypass graft; Z68.42 Body mass index [BMI] 45.0-49.9, adult; Z79.01 Long term (current) use of anticoagulants; Z79.02 Long term (current) use of antithrombotics/antiplatelets; Z79.899 Other long term (current) drug therapy; Z95.810 Presence of automatic (implantable) cardiac defibrillator
CPT/HCPCS: 36415; 80048; 83735; 83880; 96365; 96366; G0463; J1642; J2260

== ENCOUNTER → 2022-06-10 | Outpatient (CLI) | payer MEDICARE, MEDICAID ==
[2022-06-10] VITALS (11 sets, daily range): BP systolic 97–128; BP diastolic 53–84
[~2022-06-10] VITALS: Ht 165.1 cm; Wt 108.9 kg
[~2022-06-10] MED LIST changes: +POTASSIUM EFFERVESENT TAB 25 MEQ ONE; +POTASSIUM EFFERVESENT TAB 25 MEQ PO ONE
[2022-06-10 12:06] LABS: Magnesium 2.1 mg/dL (1.6-2.6)
[2022-06-10 13:11] LABS: Potassium 2.7 mmol/L (3.5-5.1)
== END | disposition home or self-care (01) ==
LOC: CHF HDHVI 09:27
PROVIDERS: ATTEND Internal Medicine Cardiovascular Disease
DX: I13.0 Hypertensive heart and chronic kidney disease with heart failure and stage 1 through stage 4 chronic kidney disease, or unspecified chronic kidney disease (principal); E11.22 Type 2 diabetes mellitus with diabetic chronic kidney disease; N18.31 Chronic kidney disease, stage 3a; I50.42 Chronic combined systolic (congestive) and diastolic (congestive) heart failure; F41.9 Anxiety disorder, unspecified; I25.10 Atherosclerotic heart disease of native coronary artery without angina pectoris; I48.20 Chronic atrial fibrillation, unspecified; J44.9 Chronic obstructive pulmonary disease, unspecified; J96.11 Chronic respiratory failure with hypoxia; E78.5 Hyperlipidemia, unspecified; E03.9 Hypothyroidism, unspecified; I25.2 Old myocardial infarction; E66.01 Morbid (severe) obesity due to excess calories; E11.40 Type 2 diabetes mellitus with diabetic neuropathy, unspecified; E11.51 Type 2 diabetes mellitus with diabetic peripheral angiopathy without gangrene; Z68.42 Body mass index [BMI] 45.0-49.9, adult; Z79.01 Long term (current) use of anticoagulants; Z79.899 Other long term (current) drug therapy; Z79.02 Long term (current) use of antithrombotics/antiplatelets; Z85.46 Personal history of malignant neoplasm of prostate; Z86.73 Personal history of transient ischemic attack (TIA), and cerebral infarction without residual deficits; Z95.1 Presence of aortocoronary bypass graft
CPT/HCPCS: 36415; 82565; 83735; 83880; 84132; 84520; 96365; 96366; G0463; J1642; J2260

== ENCOUNTER → 2022-06-17 | Outpatient (CLI) | payer MEDICARE, MEDICAID ==
[2022-06-17] VITALS (11 sets, daily range): BP systolic 102–128; BP diastolic 58–89
[~2022-06-17] MED LIST changes: -POTASSIUM CHL 20 Meq TABLET PO ONE; -POTASSIUM EFFERVESENT TAB 25 MEQ ONE; -POTASSIUM EFFERVESENT TAB 25 MEQ PO ONE
[2022-06-17 12:59] LABS: Albumin 3.2 g/dL (3.4-5.0); BUN/Creatinine Ratio 16.1; Calcium 8.1 mg/dL (8.5-10.1); Magnesium 1.5 mg/dL (1.6-2.6)
[2022-06-17 13:02] LABS: Bilirubin, Total 0.4 mg/dL (0.2-1.0)
== END | disposition home or self-care (01) ==
LOC: CHF HDHVI 09:05
PROVIDERS: ATTEND Internal Medicine Cardiovascular Disease
DX: I13.0 Hypertensive heart and chronic kidney disease with heart failure and stage 1 through stage 4 chronic kidney disease, or unspecified chronic kidney disease (principal); E11.22 Type 2 diabetes mellitus with diabetic chronic kidney disease; N18.31 Chronic kidney disease, stage 3a; I50.42 Chronic combined systolic (congestive) and diastolic (congestive) heart failure; I25.10 Atherosclerotic heart disease of native coronary artery without angina pectoris; I48.20 Chronic atrial fibrillation, unspecified; F41.9 Anxiety disorder, unspecified; J44.9 Chronic obstructive pulmonary disease, unspecified; J96.11 Chronic respiratory failure with hypoxia; E78.5 Hyperlipidemia, unspecified; E03.9 Hypothyroidism, unspecified; I25.2 Old myocardial infarction; E66.01 Morbid (severe) obesity due to excess calories; E11.40 Type 2 diabetes mellitus with diabetic neuropathy, unspecified; E11.51 Type 2 diabetes mellitus with diabetic peripheral angiopathy without gangrene; Z79.01 Long term (current) use of anticoagulants; Z79.02 Long term (current) use of antithrombotics/antiplatelets; Z68.42 Body mass index [BMI] 45.0-49.9, adult; Z85.46 Personal history of malignant neoplasm of prostate; Z87.891 Personal history of nicotine dependence; Z95.1 Presence of aortocoronary bypass graft; Z95.810 Presence of automatic (implantable) cardiac defibrillator; Z86.73 Personal history of transient ischemic attack (TIA), and cerebral infarction without residual deficits; Z79.899 Other long term (current) drug therapy
CPT/HCPCS: 36415; 80053; 83735; 83880; 96365; 96366; G0463; J1642; J2260

== ENCOUNTER → 2022-06-19 | Outpatient (CLI) | payer MEDICARE, MEDICAID ==
[2022-06-19] VITALS (11 sets, daily range): BP systolic 98–140; BP diastolic 63–80
[~2022-06-19] MED LIST changes: +MAGNESIUM SULFATE 1GM/100ML 100 ML IV ONE
== END | disposition home or self-care (01) ==
LOC: CHF HDHVI 11:10
PROVIDERS: ATTEND Internal Medicine Cardiovascular Disease
DX: I13.0 Hypertensive heart and chronic kidney disease with heart failure and stage 1 through stage 4 chronic kidney disease, or unspecified chronic kidney disease (principal); E11.22 Type 2 diabetes mellitus with diabetic chronic kidney disease; N18.31 Chronic kidney disease, stage 3a; I50.42 Chronic combined systolic (congestive) and diastolic (congestive) heart failure; F41.9 Anxiety disorder, unspecified; I25.10 Atherosclerotic heart disease of native coronary artery without angina pectoris; I48.20 Chronic atrial fibrillation, unspecified; J44.9 Chronic obstructive pulmonary disease, unspecified; J96.11 Chronic respiratory failure with hypoxia; E78.5 Hyperlipidemia, unspecified; E03.9 Hypothyroidism, unspecified; E66.01 Morbid (severe) obesity due to excess calories; I25.2 Old myocardial infarction; E11.40 Type 2 diabetes mellitus with diabetic neuropathy, unspecified; E11.51 Type 2 diabetes mellitus with diabetic peripheral angiopathy without gangrene; Z85.46 Personal history of malignant neoplasm of prostate; Z87.891 Personal history of nicotine dependence; Z86.73 Personal history of transient ischemic attack (TIA), and cerebral infarction without residual deficits; Z95.810 Presence of automatic (implantable) cardiac defibrillator; Z95.1 Presence of aortocoronary bypass graft; Z79.899 Other long term (current) drug therapy; Z68.42 Body mass index [BMI] 45.0-49.9, adult; Z79.01 Long term (current) use of anticoagulants; Z79.02 Long term (current) use of antithrombotics/antiplatelets
CPT/HCPCS: 96365; 96366; 96367; G0463; J1642; J2260; J3475

== ENCOUNTER → 2022-07-01 | Outpatient (CLI) | payer MEDICARE, MEDICAID ==
[2022-07-01] VITALS (11 sets, daily range): BP systolic 102–136; BP diastolic 64–76
[~2022-07-01] MED LIST changes: -MAGNESIUM SULFATE 1GM/100ML 100 ML IV ONE
[2022-07-01 16:37] LABS: Eosinophils # (auto) 0.1 10 ^3/uL (0-0.8); Hemoglobin 12.8 g/dL (13.5-17.5); Monocytes # (auto) 0.5 10 ^3/uL (0-1.3); Neutrophils # (auto) 4.1 10 ^3/uL (1.6-8.6); Nucleated Red Blood Cells % 0.2 %
[2022-07-01 16:39] LABS: Basophils # (auto) 0 10 ^3/uL (0-0.2); Basophils % (auto) 0.8 % (0.0-2.0); Eosinophils % (auto) 1.5 % (0.0-7.0); Hematocrit 43.1 % (41.0-53.0); Lymphocytes # (auto) 1.3 10 ^3/uL (0.4-5.4); Lymphocytes % (auto) 21.2 % (10.0-50.0); Mean Corpuscular Hemoglobin 21.2 pg (28.0-32.0); Mean Corpuscular Hgb Conc. 29.6 g/dL (32.0-36.0); Mean Corpuscular Volume 71.8 fL (80.0-100.0); Monocytes % (auto) 8.4 % (0.0-12.0); Neutrophils % (auto) 68.1 % (37.0-80.0); Red Blood Cells 6.01 10^6/uL (4.5-5.90)
[2022-07-01 16:44] LABS: Red Cell Distribution Width 22.2 % (11.8-14.3)
[2022-07-01 16:46] LABS: BUN/Creatinine Ratio 18.2; Calcium 8.7 mg/dL (8.5-10.1); Magnesium 2.2 mg/dL (1.6-2.6)
== END | disposition home or self-care (01) ==
LOC: CHF HDHVI 10:45
PROVIDERS: ATTEND Internal Medicine Cardiovascular Disease
DX: I13.0 Hypertensive heart and chronic kidney disease with heart failure and stage 1 through stage 4 chronic kidney disease, or unspecified chronic kidney disease (principal); E11.22 Type 2 diabetes mellitus with diabetic chronic kidney disease; N18.31 Chronic kidney disease, stage 3a; I50.42 Chronic combined systolic (congestive) and diastolic (congestive) heart failure; I25.10 Atherosclerotic heart disease of native coronary artery without angina pectoris; F41.9 Anxiety disorder, unspecified; I48.20 Chronic atrial fibrillation, unspecified; J44.9 Chronic obstructive pulmonary disease, unspecified; J96.11 Chronic respiratory failure with hypoxia; E78.5 Hyperlipidemia, unspecified; E03.9 Hypothyroidism, unspecified; E11.40 Type 2 diabetes mellitus with diabetic neuropathy, unspecified; E11.51 Type 2 diabetes mellitus with diabetic peripheral angiopathy without gangrene; E66.01 Morbid (severe) obesity due to excess calories; I25.2 Old myocardial infarction; Z79.01 Long term (current) use of anticoagulants; Z79.02 Long term (current) use of antithrombotics/antiplatelets; Z68.42 Body mass index [BMI] 45.0-49.9, adult; Z79.899 Other long term (current) drug therapy; Z85.46 Personal history of malignant neoplasm of prostate; Z87.891 Personal history of nicotine dependence; Z86.73 Personal history of transient ischemic attack (TIA), and cerebral infarction without residual deficits; Z95.810 Presence of automatic (implantable) cardiac defibrillator
CPT/HCPCS: 36415; 80048; 83735; 83880; 85025; 96365; 96366; G0463; J1642; J2260

== ENCOUNTER → 2022-07-03 | Outpatient (CLI) | payer MEDICARE, MEDICAID ==
[2022-07-03] VITALS (12 sets, daily range): BP systolic 103–133; BP diastolic 62–90
== END | disposition home or self-care (01) ==
LOC: CHF HDHVI 08:48
PROVIDERS: ATTEND Internal Medicine Cardiovascular Disease
DX: I13.0 Hypertensive heart and chronic kidney disease with heart failure and stage 1 through stage 4 chronic kidney disease, or unspecified chronic kidney disease (principal); E11.22 Type 2 diabetes mellitus with diabetic chronic kidney disease; N18.31 Chronic kidney disease, stage 3a; I50.42 Chronic combined systolic (congestive) and diastolic (congestive) heart failure; I25.10 Atherosclerotic heart disease of native coronary artery without angina pectoris; I48.20 Chronic atrial fibrillation, unspecified; J44.9 Chronic obstructive pulmonary disease, unspecified; J96.11 Chronic respiratory failure with hypoxia; F41.9 Anxiety disorder, unspecified; E78.5 Hyperlipidemia, unspecified; E03.9 Hypothyroidism, unspecified; I25.2 Old myocardial infarction; E11.40 Type 2 diabetes mellitus with diabetic neuropathy, unspecified; E11.51 Type 2 diabetes mellitus with diabetic peripheral angiopathy without gangrene; E66.01 Morbid (severe) obesity due to excess calories; Z85.46 Personal history of malignant neoplasm of prostate; Z87.891 Personal history of nicotine dependence; Z86.73 Personal history of transient ischemic attack (TIA), and cerebral infarction without residual deficits; Z95.810 Presence of automatic (implantable) cardiac defibrillator; Z95.1 Presence of aortocoronary bypass graft; Z79.01 Long term (current) use of anticoagulants; Z79.02 Long term (current) use of antithrombotics/antiplatelets; Z68.42 Body mass index [BMI] 45.0-49.9, adult; Z79.899 Other long term (current) drug therapy
CPT/HCPCS: 96365; 96366; G0463; J1642; J2260

== ENCOUNTER → 2022-07-15 | Outpatient (CLI) | payer MEDICARE, MEDICAID ==
[2022-07-15] VITALS (11 sets, daily range): BP systolic 111–142; BP diastolic 63–86
[~2022-07-15] VITALS: Ht 30.5 cm; Wt 111.4 kg
== END | disposition home or self-care (01) ==
LOC: CHF HDHVI 11:35
PROVIDERS: ATTEND Internal Medicine Cardiovascular Disease
DX: I13.0 Hypertensive heart and chronic kidney disease with heart failure and stage 1 through stage 4 chronic kidney disease, or unspecified chronic kidney disease (principal); E11.22 Type 2 diabetes mellitus with diabetic chronic kidney disease; N18.31 Chronic kidney disease, stage 3a; I50.42 Chronic combined systolic (congestive) and diastolic (congestive) heart failure; I42.0 Dilated cardiomyopathy; I25.10 Atherosclerotic heart disease of native coronary artery without angina pectoris; F41.9 Anxiety disorder, unspecified; I48.20 Chronic atrial fibrillation, unspecified; J44.9 Chronic obstructive pulmonary disease, unspecified; J96.11 Chronic respiratory failure with hypoxia; E78.5 Hyperlipidemia, unspecified; I25.2 Old myocardial infarction; E03.9 Hypothyroidism, unspecified; E11.40 Type 2 diabetes mellitus with diabetic neuropathy, unspecified; E11.51 Type 2 diabetes mellitus with diabetic peripheral angiopathy without gangrene; E66.01 Morbid (severe) obesity due to excess calories; Z79.01 Long term (current) use of anticoagulants; Z79.02 Long term (current) use of antithrombotics/antiplatelets; Z68.42 Body mass index [BMI] 45.0-49.9, adult; Z85.46 Personal history of malignant neoplasm of prostate; Z87.891 Personal history of nicotine dependence; Z86.73 Personal history of transient ischemic attack (TIA), and cerebral infarction without residual deficits; Z95.810 Presence of automatic (implantable) cardiac defibrillator; Z95.1 Presence of aortocoronary bypass graft; Z79.899 Other long term (current) drug therapy
CPT/HCPCS: 96365; 96366; G0463; J1642; J2260

== ENCOUNTER → 2022-07-24 | Outpatient (CLI) | payer MEDICARE, MEDICAID ==
[2022-07-24] VITALS (12 sets, daily range): BP systolic 103–149; BP diastolic 60–76
[~2022-07-24] VITALS: Ht 172.7 cm; Wt 110.8 kg
[~2022-07-24] MED LIST changes: +CYANOCOBALAMIN (B-12) 1000 MCG/1 ML VIAL IM ONE; +CYANOCOBALAMIN (B-12) 1000 MCG/1 ML VIAL ONE
[2022-07-24 12:28] LABS: Potassium 3.9 mmol/L (3.5-5.1)
[2022-07-24 12:35] LABS: Albumin 3.2 g/dL (3.4-5.0); BUN/Creatinine Ratio 17.6; Bilirubin, Total 0.7 mg/dL (0.2-1.0); Calcium 8.7 mg/dL (8.5-10.1); Magnesium 2.5 mg/dL (1.6-2.6); Total Protein 8.2 g/dL (6.4-8.2)
== END | disposition home or self-care (01) ==
LOC: CHF HDHVI 09:48
PROVIDERS: ATTEND Internal Medicine Cardiovascular Disease
DX: I50.23 Acute on chronic systolic (congestive) heart failure (principal)
CPT/HCPCS: 36415; 80053; 83735; 83880; 96365; 96366; G0463; J1642

== ENCOUNTER → 2022-07-31 | Outpatient (CLI) | payer MEDICARE, MEDICAID ==
[2022-07-31] VITALS (13 sets, daily range): BP systolic 94–123; BP diastolic 63–84
[~2022-07-31] MED LIST changes: -CYANOCOBALAMIN (B-12) 1000 MCG/1 ML VIAL IM ONE; -CYANOCOBALAMIN (B-12) 1000 MCG/1 ML VIAL ONE; +PANTOPRAZOLE 40 MG TAB PO ONE
[2022-07-31 16:58] LABS: Basophils # (auto) 0 10 ^3/uL (0-0.2); Eosinophils # (auto) 0.1 10 ^3/uL (0-0.8); Hemoglobin 13.7 g/dL (13.5-17.5); Monocytes # (auto) 0.4 10 ^3/uL (0-1.3); Neutrophils # (auto) 4.2 10 ^3/uL (1.6-8.6)
[2022-07-31 17:01] LABS: Basophils % (auto) 0.5 % (0.0-2.0); Eosinophils % (auto) 1.5 % (0.0-7.0); Hematocrit 45.4 % (41.0-53.0); Lymphocytes % (auto) 17.3 % (10.0-50.0); Mean Corpuscular Hemoglobin 21.8 pg (28.0-32.0); Mean Corpuscular Hgb Conc. 30.2 g/dL (32.0-36.0); Mean Corpuscular Volume 72.2 fL (80.0-100.0); Monocytes % (auto) 7.5 % (0.0-12.0); Neutrophils % (auto) 73.2 % (37.0-80.0); Red Blood Cells 6.29 10^6/uL (4.5-5.90); Red Cell Distribution Width 22.2 % (11.8-14.3); White Blood Cell 5.7 10^3/uL (4.4-10.8)
[2022-07-31 17:06] LABS: BUN/Creatinine Ratio 15.1; Calcium 8.9 mg/dL (8.5-10.1); Magnesium 2.5 mg/dL (1.6-2.6); Potassium 3.7 mmol/L (3.5-5.1)
== END | disposition home or self-care (01) ==
LOC: CHF HDHVI 10:31
PROVIDERS: ATTEND Internal Medicine Cardiovascular Disease
DX: I50.23 Acute on chronic systolic (congestive) heart failure (principal)
CPT/HCPCS: 36415; 80048; 83735; 83880; 85025; 96365; 96366; G0463; J1642

== ENCOUNTER → 2022-08-07 | Outpatient (CLI) | payer MEDICARE, MEDICAID ==
[~2022-08-07] VITALS: Ht 172.7 cm; Wt 112.1 kg
[2022-08-07] VITALS (12 sets, daily range): BP systolic 107–131; BP diastolic 63–82
[~2022-08-07] MED LIST changes: -PANTOPRAZOLE 40 MG TAB PO ONE
[2022-08-07 12:14] LABS: Potassium 3.8 mmol/L (3.5-5.1)
== END | disposition home or self-care (01) ==
LOC: CHF HDHVI 10:18
PROVIDERS: ATTEND Internal Medicine Cardiovascular Disease
DX: I50.23 Acute on chronic systolic (congestive) heart failure (principal)
CPT/HCPCS: 36415; 82565; 83880; 84132; 84520; 96365; 96366; G0463; J1642

== ENCOUNTER → 2022-08-21 | Outpatient (CLI) | payer MEDICARE, MEDICAID ==
[2022-08-21] VITALS (10 sets, daily range): BP systolic 93–115; BP diastolic 53–72
[2022-08-21 17:55] LABS: Anion Gap 8 (5-15); Blood Urea Nitrogen 26 mg/dL (7-18); Carbon Dioxide 27 mmol/L (21-32); Chloride 104 mmol/L (98-107); Glucose 97 mg/dL (74-106); Potassium 3.8 mmol/L (3.5-5.1); Sodium 139 mmol/L (136-145)
[2022-08-21 17:56] LABS: Alanine Aminotransferase 14 U/L (16-61); Alkaline Phosphatase 54 U/L (45-117); Aspartate Aminotransferase 12 U/L (15-37); BUN/Creatinine Ratio 17.3; Bilirubin, Total 0.6 mg/dL (0.2-1.0); Calcium 8.6 mg/dL (8.5-10.1); GFR African American 62 mL/min; GFR Non-African American 51 mL/min; Total Protein 6.9 g/dL (6.4-8.2)
== END | disposition home or self-care (01) ==
LOC: CHF HDHVI 10:45
PROVIDERS: ATTEND Internal Medicine Cardiovascular Disease
DX: I50.23 Acute on chronic systolic (congestive) heart failure (principal)
CPT/HCPCS: 36415; 80053; 83735; 83880; 96365; 96366; G0463; J1642

== ENCOUNTER → 2022-09-25 | Outpatient (CLI) | payer MEDICARE, MEDICAID ==
[2022-09-25] VITALS (10 sets, daily range): BP systolic 104–122; BP diastolic 54–87
[~2022-09-25] MED LIST changes: +CYANOCOBALAMIN (B-12) 1000 MCG/1 ML VIAL IM ONE; +CYANOCOBALAMIN (B-12) 1000 MCG/1 ML VIAL ONE
[2022-09-25 16:36] LABS: Basophils # (auto) 0.1 10 ^3/uL (0-0.2); Eosinophils # (auto) 0.1 10 ^3/uL (0-0.8); Lymphocytes # (auto) 0.7 10 ^3/uL (0.4-5.4); Monocytes # (auto) 0.4 10 ^3/uL (0-1.3); Nucleated Red Blood Cells % 0.2 %
[2022-09-25 16:38] LABS: Basophils % (auto) 1.1 % (0.0-2.0); Eosinophils % (auto) 1.2 % (0.0-7.0); Hematocrit 42.7 % (41.0-53.0); Hemoglobin 12.9 g/dL (13.5-17.5); Lymphocytes % (auto) 12.6 % (10.0-50.0); Mean Corpuscular Hemoglobin 21.9 pg (28.0-32.0); Mean Corpuscular Hgb Conc. 30.3 g/dL (32.0-36.0); Mean Corpuscular Volume 72.2 fL (80.0-100.0); Monocytes % (auto) 7.1 % (0.0-12.0); Neutrophils # (auto) 4.6 10 ^3/uL (1.6-8.6); Red Blood Cells 5.91 10^6/uL (4.5-5.90); White Blood Cell 5.9 10^3/uL (4.4-10.8)
[2022-09-25 16:41] LABS: Red Cell Distribution Width 20.5 % (11.8-14.3)
[2022-09-25 16:43] LABS: Albumin 3.2 g/dL (3.4-5.0); Calcium 8.6 mg/dL (8.5-10.1); Magnesium 1.8 mg/dL (1.6-2.6); Potassium 3.8 mmol/L (3.5-5.1)
[2022-09-25 16:50] LABS: BUN/Creatinine Ratio 11.8; Bilirubin, Total 0.6 mg/dL (0.2-1.0); Total Protein 7.8 g/dL (6.4-8.2)
== END | disposition home or self-care (01) ==
LOC: CHF HDHVI 11:18
PROVIDERS: ATTEND Internal Medicine Cardiovascular Disease
DX: I50.23 Acute on chronic systolic (congestive) heart failure (principal)
CPT/HCPCS: 36415; 80053; 83735; 83880; 85025; 96365; 96366; 96372; G0463; J1642

== ENCOUNTER → 2022-10-14 | Outpatient (CLI) | payer MEDICARE, MEDICAID ==
[~2022-10-14] VITALS: Ht 30.5 cm; Wt 107.2 kg
[2022-10-14] VITALS (11 sets, daily range): BP systolic 119–149; BP diastolic 73–99
[~2022-10-14] MED LIST changes: +BUMETANIDE 1mg/4ml VIAL (0.25mg/ml) ONE; +BUMETANIDE 2.5mg/10ml (0.25 mg/ml) INJ IV ONE; -CYANOCOBALAMIN (B-12) 1000 MCG/1 ML VIAL IM ONE; -CYANOCOBALAMIN (B-12) 1000 MCG/1 ML VIAL ONE; +MAGNESIUM SULFATE 1GM/100ML 100 ML IV ONE; +POTASSIUM EFFERVESENT TAB 25 MEQ ONE; +POTASSIUM EFFERVESENT TAB 25 MEQ PO ONE
[2022-10-14 12:09] LABS: Basophils # (auto) 0 10 ^3/uL (0-0.2); Basophils % (auto) 0.3 % (0.0-2.0); Eosinophils # (auto) 0 10 ^3/uL (0-0.8); Hemoglobin 13.2 g/dL (13.5-17.5); Lymphocytes # (auto) 0.6 10 ^3/uL (0.4-5.4); Mean Corpuscular Hemoglobin 21.7 pg (28.0-32.0); Monocytes # (auto) 0.3 10 ^3/uL (0-1.3)
[2022-10-14 12:11] LABS: Hematocrit 43.6 % (41.0-53.0); Lymphocytes % (auto) 9.1 % (10.0-50.0); Mean Corpuscular Hgb Conc. 30.3 g/dL (32.0-36.0); Mean Corpuscular Volume 71.6 fL (80.0-100.0); Monocytes % (auto) 4.4 % (0.0-12.0); Neutrophils # (auto) 5.6 10 ^3/uL (1.6-8.6); Neutrophils % (auto) 86.2 % (37.0-80.0); White Blood Cell 6.5 10^3/uL (4.4-10.8)
[2022-10-14 12:21] LABS: Potassium 3.6 mmol/L (3.5-5.1)
[2022-10-14 12:30] LABS: Albumin 3.4 g/dL (3.4-5.0); BUN/Creatinine Ratio 16.1; Bilirubin, Total 0.6 mg/dL (0.2-1.0); Calcium 8.2 mg/dL (8.5-10.1); Magnesium 1.6 mg/dL (1.6-2.6); Total Protein 7.5 g/dL (6.4-8.2)
[2022-10-14 12:35] LABS: Red Cell Distribution Width 20.5 % (11.8-14.3)
== END | disposition home or self-care (01) ==
LOC: CHF HDHVI 10:26
PROVIDERS: ATTEND Internal Medicine Cardiovascular Disease
DX: I50.23 Acute on chronic systolic (congestive) heart failure (principal)
CPT/HCPCS: 36415; 80053; 83735; 83880; 85025; 96365; 96366; 96367; 96375; G0463; J1642

== ENCOUNTER → 2022-10-16 | Outpatient (CLI) | payer MEDICARE, MEDICAID ==
[2022-10-16] VITALS (11 sets, daily range): BP systolic 103–113; BP diastolic 57–77
[~2022-10-16] MED LIST changes: +ACETAMINOPHEN 500 MG TAB PO ONE; -BUMETANIDE 1mg/4ml VIAL (0.25mg/ml) ONE; -BUMETANIDE 2.5mg/10ml (0.25 mg/ml) INJ IV ONE; -MAGNESIUM SULFATE 1GM/100ML 100 ML IV ONE
[2022-10-16 11:22] LABS: Magnesium 1.8 mg/dL (1.6-2.6)
[2022-10-16 11:39] LABS: Potassium 2.9 mmol/L (3.5-5.1)
== END | disposition home or self-care (01) ==
LOC: CHF HDHVI 10:17
PROVIDERS: ATTEND Internal Medicine Cardiovascular Disease
DX: I50.23 Acute on chronic systolic (congestive) heart failure (principal)
CPT/HCPCS: 36415; 82565; 83735; 83880; 84132; 84520; 96365; 96366; G0463; J1642

== ENCOUNTER → 2022-10-28 | Outpatient (CLI) | payer MEDICARE, MEDICAID ==
[~2022-10-28] VITALS: Ht 30.5 cm; Wt 106.6 kg
[2022-10-28] VITALS (13 sets, daily range): BP systolic 87–121; BP diastolic 38–85
[~2022-10-28] MED LIST changes: -ACETAMINOPHEN 500 MG TAB PO ONE; +CYANOCOBALAMIN (B-12) 1000 MCG/1 ML VIAL IM ONE; +CYANOCOBALAMIN (B-12) 1000 MCG/1 ML VIAL ONE; -POTASSIUM EFFERVESENT TAB 25 MEQ ONE; -POTASSIUM EFFERVESENT TAB 25 MEQ PO ONE
[2022-10-28 16:43] LABS: BUN/Creatinine Ratio 19.1; Calcium 8.5 mg/dL (8.5-10.1); Magnesium 1.5 mg/dL (1.6-2.6)
== END | disposition home or self-care (01) ==
LOC: CHF HDHVI 11:51
PROVIDERS: ATTEND Internal Medicine Cardiovascular Disease
DX: I50.23 Acute on chronic systolic (congestive) heart failure (principal)
CPT/HCPCS: 36415; 80048; 83735; 83880; 96365; 96366; 96372; G0463; J1642

== ENCOUNTER → 2022-10-30 | Outpatient (CLI) | payer MEDICARE, MEDICAID ==
[2022-10-30] VITALS (9 sets, daily range): BP systolic 98–116; BP diastolic 60–72
[~2022-10-30] MED LIST changes: -CYANOCOBALAMIN (B-12) 1000 MCG/1 ML VIAL IM ONE; -CYANOCOBALAMIN (B-12) 1000 MCG/1 ML VIAL ONE; +MAGNESIUM SULFATE 1GM/100ML 100 ML IV ONE; +POTASSIUM EFFERVESENT TAB 25 MEQ ONE; +POTASSIUM EFFERVESENT TAB 25 MEQ PO ONE
== END | disposition home or self-care (01) ==
LOC: CHF HDHVI 09:09
PROVIDERS: ATTEND Internal Medicine Cardiovascular Disease
DX: E86.0 Dehydration (principal)
CPT/HCPCS: 36415; 84132; 96365; 96366; 96367; G0463; J1642

== ENCOUNTER → 2022-11-04 | Outpatient (CLI) | payer MEDICARE, MEDICAID ==
[2022-11-04] VITALS (11 sets, daily range): BP systolic 100–120; BP diastolic 66–86
[~2022-11-04] MED LIST changes: -MAGNESIUM SULFATE 1GM/100ML 100 ML IV ONE; -POTASSIUM EFFERVESENT TAB 25 MEQ ONE; -POTASSIUM EFFERVESENT TAB 25 MEQ PO ONE; +cefTRIAXone 1GM/50ML D5W 50 ML IV ONE; +methylPREDNISolone SOD SUCC 125 MG/2 ML VL IV ONE; +methylPREDNISolone SOD SUCC 40 MG/ML VL ONE
[2022-11-04 16:47] LABS: Calcium 8.6 mg/dL (8.5-10.1); Magnesium 2.1 mg/dL (1.6-2.6); Potassium 3.4 mmol/L (3.5-5.1)
[2022-11-04 16:51] LABS: BUN/Creatinine Ratio 20.8; Bilirubin, Total 0.6 mg/dL (0.2-1.0); Total Protein 7.7 g/dL (6.4-8.2)
[2022-11-04 16:52] LABS: Basophils # (auto) 0.1 10 ^3/uL (0-0.2); Mean Corpuscular Volume 70.7 fL (80.0-100.0); Monocytes # (auto) 0.6 10 ^3/uL (0-1.3)
[2022-11-04 16:54] LABS: Eosinophils # (auto) 0 10 ^3/uL (0-0.8); Eosinophils % (auto) 0.6 % (0.0-7.0); Hematocrit 39.5 % (41.0-53.0); Hemoglobin 12.4 g/dL (13.5-17.5); Lymphocytes % (auto) 14.2 % (10.0-50.0); Mean Corpuscular Hemoglobin 22.3 pg (28.0-32.0); Mean Corpuscular Hgb Conc. 31.5 g/dL (32.0-36.0); Monocytes % (auto) 8.1 % (0.0-12.0); Neutrophils # (auto) 5.3 10 ^3/uL (1.6-8.6); Neutrophils % (auto) 76.1 % (37.0-80.0); Nucleated Red Blood Cells % 0.2 %; Red Blood Cells 5.58 10^6/uL (4.5-5.90)
[2022-11-04 16:55] LABS: Red Cell Distribution Width 20.7 % (11.8-14.3)
== END | disposition home or self-care (01) ==
LOC: CHF HDHVI 10:52
PROVIDERS: ATTEND Internal Medicine Cardiovascular Disease
DX: I50.23 Acute on chronic systolic (congestive) heart failure (principal)
CPT/HCPCS: 36415; 71046; 80053; 83735; 83880; 85025; 96365; 96366; 96367; 96375; G0463; J0696; J1642

== ENCOUNTER 2022-11-09 11:40 | Inpatient (IN) | payer MEDICARE, MEDICAID ==
[~2022-11-09] VITALS: Ht 175.3 cm; Wt 113.4 kg
[~2022-11-09 11:40] MED LIST changes: -MILRINONE 20MG/100ML 100 ML IV ONE; -cefTRIAXone 1GM/50ML D5W 50 ML IV ONE; -methylPREDNISolone SOD SUCC 125 MG/2 ML VL IV ONE; -methylPREDNISolone SOD SUCC 40 MG/ML VL ONE
[2022-11-09] MEDS ORDERED: FUROSEMIDE 40 MG/4 ML VIAL IV ONE (12:30)
[2022-11-09 12:40] LABS: Albumin 3.2 g/dL (3.4-5.0); Potassium 4.8 mmol/L (3.5-5.1)
[2022-11-09 12:46] LABS: Bilirubin, Total 0.6 mg/dL (0.2-1.0); Calcium 8.9 mg/dL (8.5-10.1); Total Protein 7.5 g/dL (6.4-8.2)
[2022-11-09 13:00] LABS: Basophils # (auto) 0.1 10 ^3/uL (0-0.2); Eosinophils # (auto) 0 10 ^3/uL (0-0.8); Eosinophils % (auto) 0.2 % (0.0-7.0); Hematocrit 44.8 % (41.0-53.0); Hemoglobin 13.6 g/dL (13.5-17.5); Lymphocytes # (auto) 0.8 10 ^3/uL (0.4-5.4); Lymphocytes % (auto) 7.7 % (10.0-50.0); Mean Corpuscular Hemoglobin 21.4 pg (28.0-32.0); Mean Corpuscular Hgb Conc. 30.3 g/dL (32.0-36.0); Mean Corpuscular Volume 70.5 fL (80.0-100.0); Monocytes # (auto) 0.5 10 ^3/uL (0-1.3); Monocytes % (auto) 5.1 % (0.0-12.0); Neutrophils # (auto) 8.5 10 ^3/uL (1.6-8.6); Nucleated Red Blood Cells % 0.7 %; Red Blood Cells 6.36 10^6/uL (4.5-5.90); White Blood Cell 9.8 10^3/uL (4.4-10.8)
[2022-11-09] MEDS ORDERED: ENOXAPARIN SOD 120 MG/0.8 ML SYRINGE SC ONE (13:30)
[2022-11-09] MEDS ORDERED: ALBUTEROL SULF 2.5 MG/0.5ML(0.5%) NEB SOLN NEB PRN (15:30)
[2022-11-09] MEDS ORDERED: NITROGLYCERIN 0.4 MG SL TAB SL PRN (15:30)
[2022-11-09] MEDS ORDERED: MORPHINE SULFATE INJ 2 MG/ml SYRG IV PRN (15:30)
[2022-11-09] MEDS ORDERED: DOCUSATE SOD 100 MG CAP PO PRN (15:30)
[2022-11-09] MEDS ORDERED: HYDROcodone-ACET 5/325MG TAB PO PRN (15:30)
[2022-11-09] MEDS ORDERED: ONDANSETRON HCL 4 MG/2 ML VIAL IV PRN (15:30)
[2022-11-09 16:34] VITALS: BP 112/73
[2022-11-09] MEDS: SODIUM CHLOR 0.9% PF (SALINE LOCK) 10ML VIAL/SYR IV SCH (22:00)
[2022-11-10] VITALS (7 sets, daily range): BP systolic 92–131; BP diastolic 55–91
[2022-11-10] MEDS ORDERED: APIX5TAB PO (01:06)
[2022-11-10] MEDS ORDERED: FEBU40TA3 PO (05:04)
[2022-11-10] MEDS ORDERED: VERI5TAB PO (05:04)
[2022-11-10] MEDS ORDERED: BENZ100C97 PO (05:04)
[2022-11-10] MEDS: SODIUM CHLOR 0.9% PF (SALINE LOCK) 10ML VIAL/SYR IV SCH ×3 (05:51→19:43)
[2022-11-10 09:22] LABS: Basophils # (auto) 0 10 ^3/uL (0-0.2); Basophils % (auto) 0.6 % (0.0-2.0); Eosinophils # (auto) 0.1 10 ^3/uL (0-0.8); Eosinophils % (auto) 0.8 % (0.0-7.0); Hematocrit 41.3 % (41.0-53.0); Hemoglobin 13.2 g/dL (13.5-17.5); Lymphocytes # (auto) 1.3 10 ^3/uL (0.4-5.4); Lymphocytes % (auto) 15.3 % (10.0-50.0); Mean Corpuscular Hemoglobin 22.1 pg (28.0-32.0); Mean Corpuscular Hgb Conc. 32.1 g/dL (32.0-36.0); Mean Corpuscular Volume 68.9 fL (80.0-100.0); Monocytes # (auto) 1.1 10 ^3/uL (0-1.3); Monocytes % (auto) 12.6 % (0.0-12.0); Neutrophils # (auto) 6.2 10 ^3/uL (1.6-8.6); Neutrophils % (auto) 70.7 % (37.0-80.0); Nucleated Red Blood Cells % 0.8 %; White Blood Cell 8.8 10^3/uL (4.4-10.8)
[2022-11-10 09:23] LABS: Red Cell Distribution Width 20.4 % (11.8-14.3)
[2022-11-10 09:29] LABS: Calcium 8.8 mg/dL (8.5-10.1); Potassium 4.4 mmol/L (3.5-5.1)
[2022-11-10 09:33] LABS: BUN/Creatinine Ratio 24.4; Bilirubin, Total 0.7 mg/dL (0.2-1.0); Total Protein 7.5 g/dL (6.4-8.2)
[2022-11-10] MEDS: ENOXAPARIN SOD 40 MG/0.4 ML SYRINGE SC SCH (13:33)
[2022-11-10] MEDS: PANTOPRAZOLE 40 MG/10 ML VIAL INJ IV SCH (13:33)
[2022-11-10] MEDS: FUROSEMIDE 40 MG/4 ML VIAL IV SCH (13:33)
[2022-11-10] MEDS: ALPRAZolam 0.25 MG TAB PO PRN ×2 (13:48→19:43)
[2022-11-10] MEDS: FUROSEMIDE INJECTION 100 MG in SODIUM CHL 0.9% 100 ML IV SCH (19:43)
[2022-11-10] MEDS: MILRINONE 20MG/100ML 100 ML IV SCH (19:44)
[2022-11-11] MEDS: FUROSEMIDE INJECTION 100 MG in SODIUM CHL 0.9% 100 ML IV SCH ×5 (00:23→19:45)
[2022-11-11] MEDS: MILRINONE 20MG/100ML 100 ML IV SCH ×4 (01:30→20:57)
[2022-11-11 05:00] VITALS: BP 111/79
[2022-11-11] MEDS: SODIUM CHLOR 0.9% PF (SALINE LOCK) 10ML VIAL/SYR IV SCH ×3 (06:21→22:11)
[2022-11-11] MEDS: ACETAMINOPHEN 325 MG TAB PO PRN (06:21)
[2022-11-11 08:18] VITALS: BP 112/67
[2022-11-11] MEDS: PANTOPRAZOLE 40 MG/10 ML VIAL INJ IV SCH (09:19)
[2022-11-11] MEDS: ENOXAPARIN SOD 40 MG/0.4 ML SYRINGE SC SCH (09:30)
[2022-11-11] MEDS: FUROSEMIDE 40 MG/4 ML VIAL IV SCH (10:00)
[2022-11-11 13:00] VITALS: BP 91/60
[2022-11-11] MEDS: IPRATROPIUM BROM 0.5 MG/2.5ML INH SOL NEB PRN (15:11)
[2022-11-11] MEDS ORDERED: ALBUTEROL MEDNEB 2.5 mg/3ml NEB ONE (15:24)
[2022-11-11 16:00] VITALS: BP 106/76
[2022-11-11 16:30] LABS: Basophils # (auto) 0.1 10 ^3/uL (0-0.2); Basophils % (auto) 1.1 % (0.0-2.0); Eosinophils # (auto) 0.1 10 ^3/uL (0-0.8); Eosinophils % (auto) 1.6 % (0.0-7.0); Hematocrit 38.9 % (41.0-53.0); Hemoglobin 12.6 g/dL (13.5-17.5); Lymphocytes # (auto) 1.5 10 ^3/uL (0.4-5.4); Lymphocytes % (auto) 16.8 % (10.0-50.0); Mean Corpuscular Hemoglobin 22.5 pg (28.0-32.0); Mean Corpuscular Hgb Conc. 32.5 g/dL (32.0-36.0); Mean Corpuscular Volume 69.4 fL (80.0-100.0); Monocytes % (auto) 11.5 % (0.0-12.0); Neutrophils # (auto) 6.1 10 ^3/uL (1.6-8.6); Nucleated Red Blood Cells % 0.8 %; Red Blood Cells 5.61 10^6/uL (4.5-5.90); White Blood Cell 8.9 10^3/uL (4.4-10.8)
[2022-11-11 16:31] LABS: Red Cell Distribution Width 20.5 % (11.8-14.3)
[2022-11-11 16:39] LABS: BUN/Creatinine Ratio 22.8; Calcium 8.8 mg/dL (8.5-10.1); Potassium 4.9 mmol/L (3.5-5.1)
[2022-11-11 22:00] VITALS: BP 97/70
[2022-11-11] MEDS: TORSEMIDE 20 MG TAB PO SCH (23:59)
[2022-11-12] VITALS: BP 120/58
[2022-11-12] MEDS: FUROSEMIDE INJECTION 100 MG in SODIUM CHL 0.9% 100 ML IV SCH ×5 (00:55→20:49)
[2022-11-12] MEDS: ACETAMINOPHEN 325 MG TAB PO PRN (01:20)
[2022-11-12] MEDS: ALPRAZolam 0.25 MG TAB PO PRN ×2 (04:11→16:08)
[2022-11-12] MEDS: MILRINONE 20MG/100ML 100 ML IV SCH ×3 (04:28→20:48)
[2022-11-12 05:00] VITALS: BP 121/75
[2022-11-12] MEDS: SODIUM CHLOR 0.9% PF (SALINE LOCK) 10ML VIAL/SYR IV SCH ×3 (05:47→21:49)
[2022-11-12 08:00] VITALS: BP 103/50
[2022-11-12 09:18] VITALS: BP 121/75
[2022-11-12] MEDS: PANTOPRAZOLE 40 MG/10 ML VIAL INJ IV SCH (09:33)
[2022-11-12] MEDS: FUROSEMIDE 40 MG/4 ML VIAL IV SCH ×2 (09:40→10:00)
[2022-11-12] MEDS: METOPROLOL SUCCINATE XL 50 MG TAB PO SCH (09:41)
[2022-11-12] MEDS: TORSEMIDE 20 MG TAB PO SCH ×2 (09:41→21:49)
[2022-11-12] MEDS: DIGOXIN 0.125 MG TAB PO SCH (09:41)
[2022-11-12] MEDS: SPIRONOLACTONE 25 MG TAB PO SCH (09:42)
[2022-11-12] MEDS: AMIODARONE HCL 200 MG TAB PO SCH (09:42)
[2022-11-12] MEDS: metOLazone 5 MG TAB PO SCH (09:42)
[2022-11-12] MEDS: ENOXAPARIN SOD 40 MG/0.4 ML SYRINGE SC SCH (09:43)
[2022-11-12 16:00] VITALS: BP 111/76
[2022-11-12] MEDS ORDERED: ALBUTEROL MEDNEB 2.5 mg/3ml NEB ONE (17:51)
[2022-11-12] MEDS: IPRATROPIUM BROM 0.5 MG/2.5ML INH SOL NEB PRN (18:38)
[2022-11-12 22:00] VITALS: BP 120/58
[2022-11-13] VITALS: BP 120/58
[2022-11-13] MEDS: FUROSEMIDE INJECTION 100 MG in SODIUM CHL 0.9% 100 ML IV SCH ×3 (01:50→11:50)
[2022-11-13] MEDS: MILRINONE 20MG/100ML 100 ML IV SCH ×2 (04:25→12:00)
[2022-11-13 05:00] VITALS: BP 103/66
[2022-11-13] MEDS: SODIUM CHLOR 0.9% PF (SALINE LOCK) 10ML VIAL/SYR IV SCH ×2 (06:00→14:10)
[2022-11-13] MEDS: ALPRAZolam 0.25 MG TAB PO PRN (06:01)
[2022-11-13 06:20] LABS: Calcium 9.1 mg/dL (8.5-10.1)
[2022-11-13 08:00] VITALS: BP 114/64
[2022-11-13] MEDS: FUROSEMIDE 40 MG/4 ML VIAL IV SCH (10:00)
[2022-11-13] MEDS: metOLazone 5 MG TAB PO SCH (10:00)
[2022-11-13] MEDS: PANTOPRAZOLE 40 MG/10 ML VIAL INJ IV SCH (10:53)
[2022-11-13] MEDS: ENOXAPARIN SOD 40 MG/0.4 ML SYRINGE SC SCH (10:54)
[2022-11-13] MEDS: SPIRONOLACTONE 25 MG TAB PO SCH (10:57)
[2022-11-13] MEDS: DIGOXIN 0.125 MG TAB PO SCH (10:58)
[2022-11-13] MEDS: TORSEMIDE 20 MG TAB PO SCH (10:58)
[2022-11-13] MEDS: METOPROLOL SUCCINATE XL 50 MG TAB PO SCH (10:58)
[2022-11-13] MEDS: AMIODARONE HCL 200 MG TAB PO SCH (10:59)
[2022-11-13] MEDS: ACETAMINOPHEN 325 MG TAB PO PRN (10:59)
[2022-11-13 15:00] VITALS: BP 125/52
[2022-11-13 16:00] VITALS: BP 109/72
== END 2022-11-13 18:40 | disposition home or self-care (01) | DRG 280 ==
LOC: ER 11:40 → OVERFLOW 15:20 → TELE-EAST 23:28
PROVIDERS: ADMIT Nurse Practitioner Family; ATTEND Internal Medicine Cardiovascular Disease
DX: I11.0 Hypertensive heart disease with heart failure (principal); I50.43 Acute on chronic combined systolic (congestive) and diastolic (congestive) heart failure; I21.4 Non-ST elevation (NSTEMI) myocardial infarction; E78.5 Hyperlipidemia, unspecified; F41.9 Anxiety disorder, unspecified; I20.9 Angina pectoris, unspecified; G47.30 Sleep apnea, unspecified; I25.5 Ischemic cardiomyopathy; R06.03 Acute respiratory distress; Z20.822 Contact with and (suspected) exposure to COVID-19; I48.91 Unspecified atrial fibrillation; Z82.49 Family history of ischemic heart disease and other diseases of the circulatory system; Z82.1 Family history of blindness and visual loss; Z82.3 Family history of stroke; Z83.3 Family history of diabetes mellitus; Z91.199 Patient's noncompliance with other medical treatment and regimen due to unspecified reason; I25.2 Old myocardial infarction
CPT/HCPCS: 36415; 71045; 80048; 80053; 83735; 83880; 84484; 85025; 85379; 87426; 93005; 94640; 96366; 96367; 96372; 96374; 96375; 99291; C9113; G0378; G0463; J1642; J2405

== ENCOUNTER → 2022-11-15 | Outpatient (CLI) | payer MEDICARE, MEDICAID ==
[~2022-11-15] MED LIST changes: +APIX5TAB PO; +BENZ100C97 PO; -CLOP75TA70 PO; +FEBU40TA3 PO; -ISO60SRT PO; +VERI5TAB PO; -WARF2TAB49 PO
== END | disposition home or self-care (01) ==
LOC: Rad HDHVI 12:56
PROVIDERS: ATTEND Internal Medicine Cardiovascular Disease
DX: I51.7 Cardiomegaly (principal); R60.9 Edema, unspecified; R06.02 Shortness of breath; Z95.0 Presence of cardiac pacemaker
CPT/HCPCS: 71046

== ENCOUNTER → 2022-11-20 | Outpatient (CLI) | payer MEDICARE, MEDICAID ==
[2022-11-20] VITALS (11 sets, daily range): BP systolic 102–118; BP diastolic 56–79
[~2022-11-20] MED LIST changes: +ALBUTEROL SULF 2.5 MG/0.5ML(0.5%) NEB SOLN NEB ONE; +ALBUTEROL SULF 2.5 MG/0.5ML(0.5%) NEB SOLN ONE; +MILRINONE 20MG/100ML 100 ML IV ONE
== END | disposition home or self-care (01) ==
LOC: CHF HDHVI 10:16
PROVIDERS: ATTEND Internal Medicine Cardiovascular Disease
DX: I42.0 Dilated cardiomyopathy (principal); I11.0 Hypertensive heart disease with heart failure; I50.43 Acute on chronic combined systolic (congestive) and diastolic (congestive) heart failure; F41.9 Anxiety disorder, unspecified; E78.5 Hyperlipidemia, unspecified; I25.2 Old myocardial infarction; I48.91 Unspecified atrial fibrillation; G47.30 Sleep apnea, unspecified; Z95.0 Presence of cardiac pacemaker; Z20.822 Contact with and (suspected) exposure to COVID-19
CPT/HCPCS: 94640; 96365; 96366; G0463; J1642; J2260

== ENCOUNTER → 2022-11-25 | Outpatient (CLI) | payer MEDICARE, MEDICAID ==
[~2022-11-25] VITALS: Ht 30.5 cm; Wt 0.5 kg
[2022-11-25] VITALS (10 sets, daily range): BP systolic 101–134; BP diastolic 51–74
[~2022-11-25] MED LIST changes: -ALBUTEROL SULF 2.5 MG/0.5ML(0.5%) NEB SOLN NEB ONE; -ALBUTEROL SULF 2.5 MG/0.5ML(0.5%) NEB SOLN ONE; +BUMETANIDE 2.5mg/10ml (0.25 mg/ml) INJ IV ONE; +BUMETANIDE INJECTION 20 ML ONE; +CYANOCOBALAMIN (B-12) 1000 MCG/1 ML VIAL IM ONE; +CYANOCOBALAMIN (B-12) 1000 MCG/1 ML VIAL ONE; +POTASSIUM CHL 20 Meq TABLET PO ONE; +POTASSIUM EFFERVESENT TAB 25 MEQ ONE; +POTASSIUM EFFERVESENT TAB 25 MEQ PO ONE
== END | disposition home or self-care (01) ==
LOC: CHF HDHVI 10:14
PROVIDERS: ATTEND Internal Medicine Cardiovascular Disease
DX: I11.0 Hypertensive heart disease with heart failure (principal); I50.43 Acute on chronic combined systolic (congestive) and diastolic (congestive) heart failure; E78.5 Hyperlipidemia, unspecified; I25.2 Old myocardial infarction; F41.9 Anxiety disorder, unspecified; G47.30 Sleep apnea, unspecified; I48.91 Unspecified atrial fibrillation; Z95.0 Presence of cardiac pacemaker
CPT/HCPCS: 96365; 96366; 96372; 96375; G0463; J1642; J2260; J3420

== ENCOUNTER → 2022-12-02 | Outpatient (CLI) | payer MEDICARE, MEDICAID ==
[2022-12-02] VITALS (11 sets, daily range): BP systolic 102–123; BP diastolic 63–82
[~2022-12-02] MED LIST changes: -BUMETANIDE 2.5mg/10ml (0.25 mg/ml) INJ IV ONE; -BUMETANIDE INJECTION 20 ML ONE; -CYANOCOBALAMIN (B-12) 1000 MCG/1 ML VIAL IM ONE; -CYANOCOBALAMIN (B-12) 1000 MCG/1 ML VIAL ONE; +MAGNESIUM OXIDE 400 MG TAB ONE; +MAGNESIUM OXIDE 400 MG TAB PO ONE; +MAGNESIUM SULFATE 1GM/100ML 100 ML IV ONE; -POTASSIUM CHL 20 Meq TABLET PO ONE; -POTASSIUM EFFERVESENT TAB 25 MEQ ONE; -POTASSIUM EFFERVESENT TAB 25 MEQ PO ONE
== END | disposition home or self-care (01) ==
LOC: CHF HDHVI 11:33
PROVIDERS: ATTEND Internal Medicine Cardiovascular Disease
DX: I11.0 Hypertensive heart disease with heart failure (principal); I50.42 Chronic combined systolic (congestive) and diastolic (congestive) heart failure; E83.42 Hypomagnesemia; I25.2 Old myocardial infarction; I48.91 Unspecified atrial fibrillation; E78.5 Hyperlipidemia, unspecified; F41.9 Anxiety disorder, unspecified; Z95.0 Presence of cardiac pacemaker
CPT/HCPCS: 96365; 96366; 96367; G0463; J1642; J2260; J3475

== ENCOUNTER → 2022-12-04 | Outpatient (CLI) | payer MEDICARE, MEDICAID ==
[2022-12-04] VITALS (11 sets, daily range): BP systolic 90–110; BP diastolic 50–72
[~2022-12-04] MED LIST changes: -MAGNESIUM OXIDE 400 MG TAB ONE; -MAGNESIUM OXIDE 400 MG TAB PO ONE; -MAGNESIUM SULFATE 1GM/100ML 100 ML IV ONE
== END | disposition home or self-care (01) ==
LOC: CHF HDHVI 09:22
PROVIDERS: ATTEND Internal Medicine Cardiovascular Disease
DX: I11.0 Hypertensive heart disease with heart failure (principal); I50.42 Chronic combined systolic (congestive) and diastolic (congestive) heart failure; I25.2 Old myocardial infarction; I48.91 Unspecified atrial fibrillation; E78.5 Hyperlipidemia, unspecified; F41.9 Anxiety disorder, unspecified; Z95.0 Presence of cardiac pacemaker
CPT/HCPCS: 96365; 96366; G0463; J1642; J2260

== ENCOUNTER → 2022-12-09 | Outpatient (CLI) | payer MEDICARE, MEDICAID ==
[2022-12-09] VITALS (11 sets, daily range): BP systolic 97–119; BP diastolic 57–76
[~2022-12-09] MED LIST changes: +BUMETANIDE 1mg/4ml VIAL (0.25mg/ml) ONE; +BUMETANIDE 2.5mg/10ml (0.25 mg/ml) INJ IV ONE; +MAGNESIUM OXIDE 400 MG TAB ONE; +MAGNESIUM OXIDE 400 MG TAB PO ONE; +POTASSIUM CHL 10 Meq TABLET PO ONE; +POTASSIUM CHL 20 Meq TABLET PO ONE; +SODIUM FERR GLUC 62.5MG/5ML 125 MG in SODIUM CHL 0.9% 100 ML IV ONE; +SODIUM FERRIC GLUC CPLEX 62.5MG/5ML VIAL IV ONE
== END | disposition home or self-care (01) ==
LOC: CHF HDHVI 09:15
PROVIDERS: ATTEND Internal Medicine Cardiovascular Disease
DX: I11.0 Hypertensive heart disease with heart failure (principal); I50.42 Chronic combined systolic (congestive) and diastolic (congestive) heart failure; E83.42 Hypomagnesemia; E87.6 Hypokalemia; D64.9 Anemia, unspecified; I48.91 Unspecified atrial fibrillation; I25.2 Old myocardial infarction; E78.5 Hyperlipidemia, unspecified; F41.9 Anxiety disorder, unspecified; Z95.0 Presence of cardiac pacemaker
CPT/HCPCS: 96365; 96366; 96367; 96375; G0463; J1642; J2260; J2916; J3490

== ENCOUNTER → 2022-12-11 | Outpatient (CLI) | payer MEDICARE, MEDICAID ==
[2022-12-11] VITALS (11 sets, daily range): BP systolic 93–116; BP diastolic 56–79
[~2022-12-11] MED LIST changes: -MAGNESIUM OXIDE 400 MG TAB ONE; -MAGNESIUM OXIDE 400 MG TAB PO ONE; -POTASSIUM CHL 10 Meq TABLET PO ONE; +READI-CAT 2 (BARIUM SULF)(VANILLA SMOOTHIE) 450ML ONE; +metOLazone 5 MG TAB ONE; +metOLazone 5 MG TAB PO ONE
== END | disposition home or self-care (01) ==
LOC: Rad HDHVI 09:48
PROVIDERS: ATTEND Internal Medicine Cardiovascular Disease
DX: I11.0 Hypertensive heart disease with heart failure (principal); I50.42 Chronic combined systolic (congestive) and diastolic (congestive) heart failure; D64.9 Anemia, unspecified; R53.83 Other fatigue; I48.91 Unspecified atrial fibrillation; I25.2 Old myocardial infarction; E78.5 Hyperlipidemia, unspecified; F41.9 Anxiety disorder, unspecified; Z95.0 Presence of cardiac pacemaker
CPT/HCPCS: 74176; 93306; 96365; 96366; 96367; 96375; G0463; J1642; J2260; J2916; J3490

== ENCOUNTER → 2022-12-13 | Outpatient (CLI) | payer MEDICARE, MEDICAID ==
[2022-12-13] VITALS (11 sets, daily range): BP systolic 93–122; BP diastolic 60–75
[~2022-12-13] MED LIST changes: +BUME2TAB5 PO; -BUMETANIDE 1mg/4ml VIAL (0.25mg/ml) ONE; -BUMETANIDE 2.5mg/10ml (0.25 mg/ml) INJ IV ONE; +CLOB0.05 TOP; -POTASSIUM CHL 20 Meq TABLET PO ONE; -READI-CAT 2 (BARIUM SULF)(VANILLA SMOOTHIE) 450ML ONE; -SODIUM FERR GLUC 62.5MG/5ML 125 MG in SODIUM CHL 0.9% 100 ML IV ONE; -SODIUM FERRIC GLUC CPLEX 62.5MG/5ML VIAL IV ONE; +TRET0.0212 TOP; -metOLazone 5 MG TAB ONE; -metOLazone 5 MG TAB PO ONE
== END | disposition home or self-care (01) ==
LOC: CHF HDHVI 09:06
PROVIDERS: ATTEND Internal Medicine Cardiovascular Disease
DX: I11.0 Hypertensive heart disease with heart failure (principal); I50.43 Acute on chronic combined systolic (congestive) and diastolic (congestive) heart failure; I25.5 Ischemic cardiomyopathy; F41.9 Anxiety disorder, unspecified; E78.5 Hyperlipidemia, unspecified; I25.2 Old myocardial infarction; I48.91 Unspecified atrial fibrillation; G47.30 Sleep apnea, unspecified; Z95.0 Presence of cardiac pacemaker
CPT/HCPCS: 96365; 96366; G0463; J1642; J2260

== ENCOUNTER 2022-12-20 17:48 | Inpatient (IN) | payer MEDICARE, MEDICAID ==
[~2022-12-20] VITALS: Ht 175.3 cm; Wt 111.0 kg
[~2022-12-20 17:48] MED LIST changes: -BUME2TAB5 PO; -CLOB0.05 TOP; -MILRINONE 20MG/100ML 100 ML IV ONE; -TRET0.0212 TOP
[2022-12-20] MEDS ORDERED: NITROGLYCERIN 0.4 MG SL TAB SL PRN (19:00)
[2022-12-20] MEDS ORDERED: MORPHINE SULFATE INJ 2 MG/ml SYRG IV PRN (19:00)
[2022-12-20 20:00] VITALS: BP 132/66
[2022-12-20 22:00] VITALS: BP 132/66
[2022-12-20] MEDS: MILRINONE 20MG/100ML 100 ML IV SCH (22:28)
[2022-12-20] MEDS: FUROSEMIDE INJECTION 100 MG in SODIUM CHL 0.9% 100 ML IV SCH (22:29)
[2022-12-20] MEDS: POTASSIUM CHL 20 Meq TABLET PO SCH (22:49)
[2022-12-20] MEDS: APIXABAN 5 MG TAB PO SCH (22:49)
[2022-12-21] MEDS: FUROSEMIDE INJECTION 100 MG in SODIUM CHL 0.9% 100 ML IV SCH ×5 (02:28→23:18)
[2022-12-21] MEDS: MILRINONE 20MG/100ML 100 ML IV SCH ×3 (03:37→20:45)
[2022-12-21 05:00] VITALS: BP 114/68
[2022-12-21 06:31] LABS: Basophils # (auto) 0.1 10 ^3/uL (0-0.2); Eosinophils # (auto) 0.1 10 ^3/uL (0-0.8); Hemoglobin 11.5 g/dL (13.5-17.5); Lymphocytes # (auto) 1.2 10 ^3/uL (0.4-5.4)
[2022-12-21 06:33] LABS: Basophils % (auto) 0.8 % (0.0-2.0); Eosinophils % (auto) 0.8 % (0.0-7.0); Hematocrit 37.5 % (41.0-53.0); Lymphocytes % (auto) 15.4 % (10.0-50.0); Mean Corpuscular Hemoglobin 21.7 pg (28.0-32.0); Mean Corpuscular Hgb Conc. 30.8 g/dL (32.0-36.0); Mean Corpuscular Volume 70.7 fL (80.0-100.0); Monocytes # (auto) 0.8 10 ^3/uL (0-1.3); Monocytes % (auto) 10.9 % (0.0-12.0); Neutrophils # (auto) 5.5 10 ^3/uL (1.6-8.6); Neutrophils % (auto) 72.1 % (37.0-80.0); Nucleated Red Blood Cells % 0.5 %; Red Blood Cells 5.31 10^6/uL (4.5-5.90); White Blood Cell 7.7 10^3/uL (4.4-10.8)
[2022-12-21 06:42] LABS: Red Cell Distribution Width 23.3 % (11.8-14.3)
[2022-12-21] MEDS: POTASSIUM CHL 20 Meq TABLET PO SCH ×3 (06:58→21:01)
[2022-12-21 07:22] LABS: Potassium 3.2 mmol/L (3.5-5.1)
[2022-12-21 07:28] LABS: BUN/Creatinine Ratio 18.2 (10.0-20.0); Bilirubin, Total 0.5 mg/dL (0.2-1.0); Calcium 8.1 mg/dL (8.5-10.1); Total Protein 7.3 g/dL (6.4-8.2)
[2022-12-21 08:00] VITALS: BP 139/64
[2022-12-21] MEDS ORDERED: POTASSIUM CHL 20 Meq TABLET PO ONE (09:00)
[2022-12-21] MEDS: VERQUVO 5 MG PO SCH ×2 (10:00→21:00)
[2022-12-21] MEDS: DIGOXIN 0.125 MG TAB PO SCH (10:49)
[2022-12-21] MEDS: AMIODARONE HCL 200 MG TAB PO SCH (10:49)
[2022-12-21] MEDS: ALLOPURINOL 300 MG TAB PO SCH (10:50)
[2022-12-21] MEDS: APIXABAN 5 MG TAB PO SCH ×2 (10:50→21:00)
[2022-12-21 12:00] VITALS: BP 110/85
[2022-12-21 16:00] VITALS: BP 126/68
[2022-12-21] MEDS: ALPRAZolam 0.25 MG TAB PO PRN ×2 (16:59→23:19)
[2022-12-21] MEDS ORDERED: CLOB0.05 TOP (18:45)
[2022-12-21] MEDS ORDERED: TRET0.0212 TOP (18:45)
[2022-12-21] MEDS ORDERED: BUME2TAB5 PO (18:45)
[2022-12-21 22:00] VITALS: BP 111/57
[2022-12-22] MEDS: FUROSEMIDE INJECTION 100 MG in SODIUM CHL 0.9% 100 ML IV SCH ×5 (04:29→19:35)
[2022-12-22] MEDS: MILRINONE 20MG/100ML 100 ML IV SCH ×3 (04:29→19:35)
[2022-12-22 05:00] VITALS: BP 107/73
[2022-12-22] MEDS: POTASSIUM CHL 20 Meq TABLET PO SCH ×3 (05:09→21:15)
[2022-12-22 05:55] LABS: Basophils # (auto) 0 10 ^3/uL (0-0.2); Eosinophils # (auto) 0.1 10 ^3/uL (0-0.8); Eosinophils % (auto) 1.4 % (0.0-7.0); Hemoglobin 11.9 g/dL (13.5-17.5); Monocytes # (auto) 0.8 10 ^3/uL (0-1.3)
[2022-12-22 05:58] LABS: Basophils % (auto) 0.5 % (0.0-2.0); Hematocrit 39.4 % (41.0-53.0); Lymphocytes # (auto) 1.1 10 ^3/uL (0.4-5.4); Lymphocytes % (auto) 14.8 % (10.0-50.0); Mean Corpuscular Hemoglobin 21.6 pg (28.0-32.0); Mean Corpuscular Hgb Conc. 30.2 g/dL (32.0-36.0); Mean Corpuscular Volume 71.4 fL (80.0-100.0); Monocytes % (auto) 11.1 % (0.0-12.0); Neutrophils # (auto) 5.2 10 ^3/uL (1.6-8.6); Neutrophils % (auto) 72.2 % (37.0-80.0); Nucleated Red Blood Cells % 0.6 %; Red Blood Cells 5.51 10^6/uL (4.5-5.90); White Blood Cell 7.2 10^3/uL (4.4-10.8)
[2022-12-22 06:09] LABS: Red Cell Distribution Width 23.2 % (11.8-14.3)
[2022-12-22 06:14] LABS: Potassium 3.4 mmol/L (3.5-5.1)
[2022-12-22 06:26] LABS: BUN/Creatinine Ratio 17.4 (10.0-20.0); Bilirubin, Total 0.7 mg/dL (0.2-1.0); Calcium 8.3 mg/dL (8.5-10.1); Total Protein 6.8 g/dL (6.4-8.2)
[2022-12-22] MEDS: ALPRAZolam 0.25 MG TAB PO PRN (08:53)
[2022-12-22 09:00] VITALS: BP 120/58
[2022-12-22] MEDS: AMIODARONE HCL 200 MG TAB PO SCH (10:31)
[2022-12-22] MEDS: DIGOXIN 0.125 MG TAB PO SCH (10:31)
[2022-12-22] MEDS: APIXABAN 5 MG TAB PO SCH ×2 (10:31→21:14)
[2022-12-22] MEDS: ALLOPURINOL 300 MG TAB PO SCH (10:31)
[2022-12-22] MEDS: VERQUVO 5 MG PO SCH ×2 (10:31→21:14)
[2022-12-22 13:00] VITALS: BP 101/59
[2022-12-22 17:00] VITALS: BP 108/72
[2022-12-22 22:00] VITALS: BP 131/74
[2022-12-22] MEDS: HYDROcodone-ACET 10/325MG TAB PO PRN (22:55)
[2022-12-23] MEDS: FUROSEMIDE INJECTION 100 MG in SODIUM CHL 0.9% 100 ML IV SCH ×3 (00:24→20:45)
[2022-12-23] MEDS: MILRINONE 20MG/100ML 100 ML IV SCH ×3 (04:36→17:45)
[2022-12-23 05:00] VITALS: BP 108/73
[2022-12-23] MEDS: POTASSIUM CHL 20 Meq TABLET PO SCH ×3 (05:19→21:00)
[2022-12-23 06:31] LABS: Albumin 2.9 g/dL (3.4-5.0); Potassium 3.3 mmol/L (3.5-5.1)
[2022-12-23 06:33] LABS: BUN/Creatinine Ratio 16.1 (10.0-20.0)
[2022-12-23 06:34] LABS: Bilirubin, Total 0.9 mg/dL (0.2-1.0); Total Protein 7.3 g/dL (6.4-8.2)
[2022-12-23 06:59] LABS: Basophils # (auto) 0.1 10 ^3/uL (0-0.2); Eosinophils # (auto) 0.1 10 ^3/uL (0-0.8); Mean Corpuscular Volume 69.3 fL (80.0-100.0); Nucleated Red Blood Cells % 0.3 %
[2022-12-23 07:01] LABS: Basophils % (auto) 1.1 % (0.0-2.0); Hematocrit 37.7 % (41.0-53.0); Hemoglobin 11.9 g/dL (13.5-17.5); Lymphocytes % (auto) 14.1 % (10.0-50.0); Mean Corpuscular Hemoglobin 21.9 pg (28.0-32.0); Mean Corpuscular Hgb Conc. 31.7 g/dL (32.0-36.0); Monocytes # (auto) 0.7 10 ^3/uL (0-1.3); Monocytes % (auto) 9.2 % (0.0-12.0); Neutrophils # (auto) 5.5 10 ^3/uL (1.6-8.6); Neutrophils % (auto) 74.6 % (37.0-80.0); Red Blood Cells 5.44 10^6/uL (4.5-5.90); White Blood Cell 7.4 10^3/uL (4.4-10.8)
[2022-12-23 07:05] LABS: Red Cell Distribution Width 23.5 % (11.8-14.3)
[2022-12-23 09:00] VITALS: BP 103/73
[2022-12-23] MEDS: VERQUVO 5 MG PO SCH ×2 (09:29→21:01)
[2022-12-23] MEDS: ALLOPURINOL 300 MG TAB PO SCH (09:29)
[2022-12-23] MEDS: AMIODARONE HCL 200 MG TAB PO SCH ×3 (09:29→14:40)
[2022-12-23] MEDS: APIXABAN 5 MG TAB PO SCH ×2 (09:30→21:00)
[2022-12-23] MEDS: DIGOXIN 0.125 MG TAB PO SCH (09:38)
[2022-12-23 13:00] VITALS: BP 100/61
[2022-12-23 17:00] VITALS: BP 128/80
[2022-12-23 22:00] VITALS: BP 123/68
[2022-12-24] MEDS: MILRINONE 20MG/100ML 100 ML IV SCH ×3 (02:11→17:35)
[2022-12-24] MEDS: HYDROcodone-ACET 10/325MG TAB PO PRN ×3 (02:16→22:10)
[2022-12-24 05:15] VITALS: BP 111/49
[2022-12-24 05:49] LABS: Basophils # (auto) 0.1 10 ^3/uL (0-0.2); Eosinophils # (auto) 0.1 10 ^3/uL (0-0.8); Eosinophils % (auto) 1.6 % (0.0-7.0); Monocytes # (auto) 0.7 10 ^3/uL (0-1.3); Nucleated Red Blood Cells % 0.1 %
[2022-12-24 05:52] LABS: Basophils % (auto) 1.3 % (0.0-2.0); Hematocrit 36.6 % (41.0-53.0); Hemoglobin 11.5 g/dL (13.5-17.5); Lymphocytes % (auto) 14.1 % (10.0-50.0); Mean Corpuscular Hemoglobin 21.8 pg (28.0-32.0); Mean Corpuscular Hgb Conc. 31.5 g/dL (32.0-36.0); Mean Corpuscular Volume 69.4 fL (80.0-100.0); Monocytes % (auto) 9.9 % (0.0-12.0); Neutrophils # (auto) 5.1 10 ^3/uL (1.6-8.6); Neutrophils % (auto) 73.1 % (37.0-80.0); Red Blood Cells 5.28 10^6/uL (4.5-5.90)
[2022-12-24 05:54] LABS: Red Cell Distribution Width 23.3 % (11.8-14.3)
[2022-12-24] MEDS: POTASSIUM CHL 20 Meq TABLET PO SCH ×3 (06:02→21:24)
[2022-12-24] MEDS: FUROSEMIDE INJECTION 100 MG in SODIUM CHL 0.9% 100 ML IV SCH ×3 (06:03→21:27)
[2022-12-24 06:08] LABS: Potassium 3.7 mmol/L (3.5-5.1)
[2022-12-24 06:21] LABS: Albumin 2.7 g/dL (3.4-5.0); BUN/Creatinine Ratio 15.8 (10.0-20.0); Bilirubin, Total 0.5 mg/dL (0.2-1.0); Calcium 8.7 mg/dL (8.5-10.1)
[2022-12-24 09:07] VITALS: BP 93/72
[2022-12-24 09:15] VITALS: BP 93/72
[2022-12-24] MEDS: APIXABAN 5 MG TAB PO SCH ×2 (10:12→21:23)
[2022-12-24] MEDS: ALLOPURINOL 300 MG TAB PO SCH (10:12)
[2022-12-24] MEDS: AMIODARONE HCL 200 MG TAB PO SCH (10:13)
[2022-12-24] MEDS: DIGOXIN 0.125 MG TAB PO SCH (10:13)
[2022-12-24] MEDS: VERQUVO 5 MG PO SCH ×2 (10:14→21:23)
[2022-12-24 13:00] VITALS: BP 107/78
[2022-12-24 17:00] VITALS: BP 99/59
[2022-12-24 22:00] VITALS: BP 135/73
[2022-12-25] MEDS: MILRINONE 20MG/100ML 100 ML IV SCH ×4 (00:11→21:34)
[2022-12-25] MEDS ORDERED: COLCHICINE 0.6 MG CAP PO ONE (00:30)
[2022-12-25 04:59] VITALS: BP 141/105
[2022-12-25 06:06] LABS: Basophils # (auto) 0.1 10 ^3/uL (0-0.2); Hemoglobin 11.5 g/dL (13.5-17.5); Lymphocytes # (auto) 1.1 10 ^3/uL (0.4-5.4); Nucleated Red Blood Cells % 0.1 %
[2022-12-25 06:09] LABS: Basophils % (auto) 2.2 % (0.0-2.0); Eosinophils # (auto) 0.2 10 ^3/uL (0-0.8); Eosinophils % (auto) 2.7 % (0.0-7.0); Hematocrit 36.4 % (41.0-53.0); Lymphocytes % (auto) 17.3 % (10.0-50.0); Mean Corpuscular Hemoglobin 21.8 pg (28.0-32.0); Mean Corpuscular Hgb Conc. 31.6 g/dL (32.0-36.0); Mean Corpuscular Volume 69.1 fL (80.0-100.0); Monocytes # (auto) 0.6 10 ^3/uL (0-1.3); Monocytes % (auto) 9.6 % (0.0-12.0); Neutrophils # (auto) 4.2 10 ^3/uL (1.6-8.6); Neutrophils % (auto) 68.2 % (37.0-80.0); Red Blood Cells 5.26 10^6/uL (4.5-5.90); Red Cell Distribution Width 23.5 % (11.8-14.3); White Blood Cell 6.2 10^3/uL (4.4-10.8)
[2022-12-25 06:19] LABS: Potassium 3.5 mmol/L (3.5-5.1)
[2022-12-25 06:31] LABS: Albumin 2.8 g/dL (3.4-5.0); BUN/Creatinine Ratio 16.2 (10.0-20.0); Bilirubin, Total 0.5 mg/dL (0.2-1.0); Calcium 8.7 mg/dL (8.5-10.1); Total Protein 7.2 g/dL (6.4-8.2)
[2022-12-25] MEDS: COLCHICINE 0.6 MG CAP PO SCH ×3 (06:47→20:50)
[2022-12-25] MEDS: HYDROcodone-ACET 10/325MG TAB PO PRN ×2 (07:07→20:50)
[2022-12-25] MEDS: POTASSIUM CHL 20 Meq TABLET PO SCH ×3 (07:07→20:50)
[2022-12-25 09:00] VITALS: BP 138/66
[2022-12-25] MEDS: VERQUVO 5 MG PO SCH ×2 (09:31→21:34)
[2022-12-25] MEDS: ALLOPURINOL 300 MG TAB PO SCH (09:32)
[2022-12-25] MEDS: DIGOXIN 0.125 MG TAB PO SCH (09:32)
[2022-12-25] MEDS: APIXABAN 5 MG TAB PO SCH ×2 (09:32→20:49)
[2022-12-25] MEDS: AMIODARONE HCL 200 MG TAB PO SCH (09:33)
[2022-12-25] MEDS: FUROSEMIDE INJECTION 100 MG in SODIUM CHL 0.9% 100 ML IV SCH (12:34)
[2022-12-25 17:00] VITALS: BP 103/76
[2022-12-25 20:00] VITALS: BP 114/69
[2022-12-25 22:00] VITALS: BP 114/69
[2022-12-26 05:00] VITALS: BP 108/76
[2022-12-26] MEDS: COLCHICINE 0.6 MG CAP PO SCH ×3 (05:28→21:45)
[2022-12-26] MEDS: POTASSIUM CHL 20 Meq TABLET PO SCH ×3 (05:28→21:44)
[2022-12-26] MEDS: FUROSEMIDE INJECTION 100 MG in SODIUM CHL 0.9% 100 ML IV SCH ×3 (05:29→18:40)
[2022-12-26] MEDS: MILRINONE 20MG/100ML 100 ML IV SCH ×3 (05:29→21:50)
[2022-12-26 09:00] VITALS: BP 140/88
[2022-12-26] MEDS: DIGOXIN 0.125 MG TAB PO SCH ×2 (10:00→21:45)
[2022-12-26] MEDS ORDERED: POTASSIUM EFFERVESENT TAB 25 MEQ PO ONE (10:15)
[2022-12-26] MEDS: VERQUVO 5 MG PO SCH ×2 (10:33→21:46)
[2022-12-26] MEDS: AMIODARONE HCL 200 MG TAB PO SCH (10:33)
[2022-12-26] MEDS: APIXABAN 5 MG TAB PO SCH ×2 (10:34→21:45)
[2022-12-26] MEDS: ALLOPURINOL 300 MG TAB PO SCH (10:35)
[2022-12-26 13:00] VITALS: BP 120/57
[2022-12-26] MEDS: HYDROcodone-ACET 10/325MG TAB PO PRN (13:09)
[2022-12-26 17:00] VITALS: BP 120/80
[2022-12-26 22:00] VITALS: BP 107/72
[2022-12-26] MEDS: ALPRAZolam 0.25 MG TAB PO PRN (23:14)
[2022-12-27] MEDS: FUROSEMIDE INJECTION 100 MG in SODIUM CHL 0.9% 100 ML IV SCH ×2 (04:51→15:00)
[2022-12-27 05:00] VITALS: BP 111/66
[2022-12-27] MEDS: COLCHICINE 0.6 MG CAP PO SCH ×3 (05:57→21:53)
[2022-12-27] MEDS: POTASSIUM CHL 20 Meq TABLET PO SCH ×3 (05:57→21:53)
[2022-12-27] MEDS: MILRINONE 20MG/100ML 100 ML IV SCH ×2 (06:03→15:45)
[2022-12-27 09:00] VITALS: BP 95/71
[2022-12-27] MEDS: ALLOPURINOL 300 MG TAB PO SCH (10:19)
[2022-12-27] MEDS: APIXABAN 5 MG TAB PO SCH ×2 (10:19→21:53)
[2022-12-27] MEDS: AMIODARONE HCL 200 MG TAB PO SCH (10:19)
[2022-12-27 12:55] VITALS: BP 113/73
[2022-12-27] MEDS: VERQUVO 5 MG PO SCH ×2 (15:43→21:52)
[2022-12-27 17:07] VITALS: BP 123/87
[2022-12-27 20:55] VITALS: BP 134/80
[2022-12-27] MEDS: SILDENAFIL CITRATE 20 MG TAB PO SCH (21:50)
[2022-12-27] MEDS: DIGOXIN 0.125 MG TAB PO SCH (21:54)
[2022-12-27 22:00] VITALS: BP 127/86
[2022-12-27] MEDS ORDERED: POTASSIUM CHL 20 Meq TABLET PO ONE (22:00)
[2022-12-27 22:51] LABS: Calcium 9.1 mg/dL (8.5-10.1); Potassium 3.4 mmol/L (3.5-5.1)
[2022-12-27 22:54] LABS: BUN/Creatinine Ratio 15.6 (10.0-20.0)
[2022-12-28] MEDS: FUROSEMIDE INJECTION 100 MG in SODIUM CHL 0.9% 100 ML IV SCH ×3 (00:49→21:52)
[2022-12-28] MEDS: MILRINONE 20MG/100ML 100 ML IV SCH ×4 (00:50→22:52)
[2022-12-28 05:00] VITALS: BP 143/75
[2022-12-28] MEDS: COLCHICINE 0.6 MG CAP PO SCH ×3 (05:34→21:53)
[2022-12-28] MEDS: POTASSIUM CHL 20 Meq TABLET PO SCH ×3 (05:34→21:53)
[2022-12-28] MEDS: SILDENAFIL CITRATE 20 MG TAB PO SCH ×3 (08:25→20:31)
[2022-12-28] MEDS: APIXABAN 5 MG TAB PO SCH ×2 (08:26→21:55)
[2022-12-28] MEDS: VERQUVO 5 MG PO SCH ×2 (08:26→21:56)
[2022-12-28] MEDS: AMIODARONE HCL 200 MG TAB PO SCH (08:26)
[2022-12-28] MEDS: ALLOPURINOL 300 MG TAB PO SCH (08:26)
[2022-12-28 08:49] VITALS: BP 125/73
[2022-12-28 13:19] VITALS: BP 105/73
[2022-12-28 17:12] VITALS: BP 116/73
[2022-12-28] MEDS: DIGOXIN 0.125 MG TAB PO SCH (21:54)
[2022-12-28 22:00] VITALS: BP 108/60
[2022-12-29 05:00] VITALS: BP 139/88
[2022-12-29] MEDS: COLCHICINE 0.6 MG CAP PO SCH ×3 (05:27→21:56)
[2022-12-29] MEDS: POTASSIUM CHL 20 Meq TABLET PO SCH ×3 (05:27→21:56)
[2022-12-29] MEDS: MILRINONE 20MG/100ML 100 ML IV SCH ×3 (06:59→23:28)
[2022-12-29] MEDS: SILDENAFIL CITRATE 20 MG TAB PO SCH ×3 (08:54→22:03)
[2022-12-29 09:00] VITALS: BP 123/72
[2022-12-29] MEDS: ALLOPURINOL 300 MG TAB PO SCH (10:14)
[2022-12-29] MEDS: APIXABAN 5 MG TAB PO SCH ×2 (10:15→21:56)
[2022-12-29] MEDS: AMIODARONE HCL 200 MG TAB PO SCH (10:15)
[2022-12-29] MEDS: VERQUVO 5 MG PO SCH ×2 (10:16→22:03)
[2022-12-29 13:00] VITALS: BP 104/74
[2022-12-29 16:44] VITALS: BP 103/65
[2022-12-29] MEDS: FUROSEMIDE INJECTION 100 MG in SODIUM CHL 0.9% 100 ML IV SCH (17:41)
[2022-12-29] MEDS: DIGOXIN 0.125 MG TAB PO SCH (21:56)
[2022-12-29 22:00] VITALS: BP 109/62
[2022-12-29] MEDS: ALPRAZolam 0.25 MG TAB PO PRN (22:03)
[2022-12-30] MEDS: FUROSEMIDE INJECTION 100 MG in SODIUM CHL 0.9% 100 ML IV SCH ×2 (03:06→13:06)
[2022-12-30 05:00] VITALS: BP 100/62
[2022-12-30] MEDS: POTASSIUM CHL 20 Meq TABLET PO SCH ×2 (05:53→14:02)
[2022-12-30] MEDS: COLCHICINE 0.6 MG CAP PO SCH ×2 (05:53→14:01)
[2022-12-30 08:05] VITALS: BP 112/58
[2022-12-30] MEDS: MILRINONE 20MG/100ML 100 ML IV SCH ×2 (08:24→14:01)
[2022-12-30] MEDS: SILDENAFIL CITRATE 20 MG TAB PO SCH ×2 (08:24→14:01)
[2022-12-30 09:00] VITALS: BP 112/58
[2022-12-30] MEDS: APIXABAN 5 MG TAB PO SCH (10:18)
[2022-12-30] MEDS: AMIODARONE HCL 200 MG TAB PO SCH (10:18)
[2022-12-30] MEDS: VERQUVO 5 MG PO SCH (10:18)
[2022-12-30] MEDS: ALLOPURINOL 300 MG TAB PO SCH (10:19)
[2022-12-30 13:00] VITALS: BP 122/80
[2022-12-30 14:15] VITALS: BP 122/80
== END 2022-12-30 16:30 | disposition home or self-care (01) | DRG 291 ==
LOC: TELE 17:48 → TELE-CENTR 18:22
PROVIDERS: ADMIT Internal Medicine Cardiovascular Disease; ATTEND Internal Medicine Cardiovascular Disease
DX: I13.0 Hypertensive heart and chronic kidney disease with heart failure and stage 1 through stage 4 chronic kidney disease, or unspecified chronic kidney disease (principal); I50.43 Acute on chronic combined systolic (congestive) and diastolic (congestive) heart failure; J45.901 Unspecified asthma with (acute) exacerbation; E44.1 Mild protein-calorie malnutrition; J20.9 Acute bronchitis, unspecified; E87.6 Hypokalemia; E78.5 Hyperlipidemia, unspecified; F41.9 Anxiety disorder, unspecified; G47.30 Sleep apnea, unspecified; I25.5 Ischemic cardiomyopathy; Z20.822 Contact with and (suspected) exposure to COVID-19; N18.30 Chronic kidney disease, stage 3 unspecified; K44.9 Diaphragmatic hernia without obstruction or gangrene; E83.51 Hypocalcemia; I25.119 Atherosclerotic heart disease of native coronary artery with unspecified angina pectoris; I42.0 Dilated cardiomyopathy; J44.9 Chronic obstructive pulmonary disease, unspecified; Z82.1 Family history of blindness and visual loss; Z82.3 Family history of stroke; Z82.49 Family history of ischemic heart disease and other diseases of the circulatory system; Z83.3 Family history of diabetes mellitus; Z87.442 Personal history of urinary calculi; Z68.36 Body mass index [BMI] 36.0-36.9, adult
CPT/HCPCS: 36415; 80048; 80053; 80162; 83880; 85025; 87081; 87426; 93005; 96365; 96366; 96367; 96375; 99291; G0378; G0463; J1642

== ENCOUNTER → 2023-01-01 | Outpatient (CLI) | payer MEDICARE, MEDICAID ==
[2023-01-01] VITALS (10 sets, daily range): BP systolic 91–115; BP diastolic 57–81
[~2023-01-01] MED LIST changes: -BENZ100C97 PO; +BUME2TAB5 PO; +CLOB0.05 TOP; +CYANOCOBALAMIN (B-12) 1000 MCG/1 ML VIAL ONE; +CYANOCOBALAMIN (B-12) 1000 MCG/1 ML VIAL SUBCUT ONE; +MILRINONE 20MG/100ML 100 ML IV ONE; -TORS20TA20 PO; +TRET0.0212 TOP
== END | disposition home or self-care (01) ==
LOC: CHF HDHVI 10:29
PROVIDERS: ATTEND Internal Medicine Cardiovascular Disease
DX: I48.0 Paroxysmal atrial fibrillation (principal); I42.0 Dilated cardiomyopathy; D64.9 Anemia, unspecified; I13.0 Hypertensive heart and chronic kidney disease with heart failure and stage 1 through stage 4 chronic kidney disease, or unspecified chronic kidney disease; N18.30 Chronic kidney disease, stage 3 unspecified; I50.42 Chronic combined systolic (congestive) and diastolic (congestive) heart failure; I25.2 Old myocardial infarction; F41.9 Anxiety disorder, unspecified; I25.10 Atherosclerotic heart disease of native coronary artery without angina pectoris; J44.9 Chronic obstructive pulmonary disease, unspecified; E78.5 Hyperlipidemia, unspecified; G47.30 Sleep apnea, unspecified; Z95.0 Presence of cardiac pacemaker; Z87.442 Personal history of urinary calculi
CPT/HCPCS: 96365; 96366; 96372; G0463; J1642; J2260; J3420

== ENCOUNTER → 2023-01-06 | Outpatient (CLI) | payer MEDICARE, MEDICAID ==
[2023-01-06] VITALS (10 sets, daily range): BP systolic 94–116; BP diastolic 52–78
[~2023-01-06] MED LIST changes: -CYANOCOBALAMIN (B-12) 1000 MCG/1 ML VIAL ONE; -CYANOCOBALAMIN (B-12) 1000 MCG/1 ML VIAL SUBCUT ONE; +POTASSIUM CHL 20 Meq TABLET PO ONE; +SODIUM FERR GLUC 62.5MG/5ML 125 MG in SODIUM CHL 0.9% 100 ML IV ONE; +SODIUM FERRIC GLUC CPLEX 62.5MG/5ML VIAL IV ONE
== END | disposition home or self-care (01) ==
LOC: CHF HDHVI 10:43
PROVIDERS: ATTEND Internal Medicine Cardiovascular Disease
DX: I13.0 Hypertensive heart and chronic kidney disease with heart failure and stage 1 through stage 4 chronic kidney disease, or unspecified chronic kidney disease (principal); I50.42 Chronic combined systolic (congestive) and diastolic (congestive) heart failure; N18.30 Chronic kidney disease, stage 3 unspecified; R53.83 Other fatigue; E87.6 Hypokalemia; I25.10 Atherosclerotic heart disease of native coronary artery without angina pectoris; I25.2 Old myocardial infarction; I48.0 Paroxysmal atrial fibrillation; I42.8 Other cardiomyopathies; J44.9 Chronic obstructive pulmonary disease, unspecified; E78.5 Hyperlipidemia, unspecified; F41.9 Anxiety disorder, unspecified; Z95.0 Presence of cardiac pacemaker
CPT/HCPCS: 96365; 96366; 96367; G0463; J1642; J2260; J2916

== ENCOUNTER → 2023-01-08 | Outpatient (CLI) | payer MEDICARE, MEDICAID ==
[2023-01-08] VITALS (12 sets, daily range): BP systolic 12–121; BP diastolic 54–81
[~2023-01-08] MED LIST changes: +MILRINONE 20MG/100ML 100 ML IV SCH; -POTASSIUM CHL 20 Meq TABLET PO ONE; -SODIUM FERR GLUC 62.5MG/5ML 125 MG in SODIUM CHL 0.9% 100 ML IV ONE; -SODIUM FERRIC GLUC CPLEX 62.5MG/5ML VIAL IV ONE
== END | disposition home or self-care (01) ==
LOC: CHF HDHVI 09:35
PROVIDERS: ATTEND Internal Medicine Cardiovascular Disease
DX: I13.0 Hypertensive heart and chronic kidney disease with heart failure and stage 1 through stage 4 chronic kidney disease, or unspecified chronic kidney disease (principal); N18.30 Chronic kidney disease, stage 3 unspecified; I50.42 Chronic combined systolic (congestive) and diastolic (congestive) heart failure; I42.0 Dilated cardiomyopathy; I25.10 Atherosclerotic heart disease of native coronary artery without angina pectoris; F41.9 Anxiety disorder, unspecified; J44.9 Chronic obstructive pulmonary disease, unspecified; E78.5 Hyperlipidemia, unspecified; I25.2 Old myocardial infarction; I48.0 Paroxysmal atrial fibrillation; G47.30 Sleep apnea, unspecified; Z95.0 Presence of cardiac pacemaker
CPT/HCPCS: 96365; 96366; G0463; J1642; J2260

== ENCOUNTER → 2023-01-10 | Outpatient (CLI) | payer MEDICARE, MEDICAID ==
[2023-01-10] VITALS (9 sets, daily range): BP systolic 92–123; BP diastolic 62–82
[~2023-01-10] MED LIST changes: -MILRINONE 20MG/100ML 100 ML IV SCH
== END | disposition home or self-care (01) ==
LOC: CHF HDHVI 10:11
PROVIDERS: ATTEND Internal Medicine Cardiovascular Disease
DX: I13.0 Hypertensive heart and chronic kidney disease with heart failure and stage 1 through stage 4 chronic kidney disease, or unspecified chronic kidney disease (principal); N18.30 Chronic kidney disease, stage 3 unspecified; I50.42 Chronic combined systolic (congestive) and diastolic (congestive) heart failure; I25.5 Ischemic cardiomyopathy; I25.10 Atherosclerotic heart disease of native coronary artery without angina pectoris; F41.9 Anxiety disorder, unspecified; J44.9 Chronic obstructive pulmonary disease, unspecified; E78.5 Hyperlipidemia, unspecified; I25.2 Old myocardial infarction; I48.0 Paroxysmal atrial fibrillation; Z95.0 Presence of cardiac pacemaker; Z87.442 Personal history of urinary calculi
CPT/HCPCS: 96365; 96366; G0463; J1642; J2260

== ENCOUNTER → 2023-01-15 | Outpatient (CLI) | payer MEDICARE, MEDICAID ==
[2023-01-15] VITALS (11 sets, daily range): BP systolic 86–109; BP diastolic 55–88
== END | disposition home or self-care (01) ==
LOC: CHF HDHVI 08:58
PROVIDERS: ATTEND Internal Medicine Cardiovascular Disease
DX: I13.0 Hypertensive heart and chronic kidney disease with heart failure and stage 1 through stage 4 chronic kidney disease, or unspecified chronic kidney disease (principal); N18.30 Chronic kidney disease, stage 3 unspecified; I50.42 Chronic combined systolic (congestive) and diastolic (congestive) heart failure; I42.0 Dilated cardiomyopathy; E66.9 Obesity, unspecified; F41.9 Anxiety disorder, unspecified; I25.10 Atherosclerotic heart disease of native coronary artery without angina pectoris; J44.9 Chronic obstructive pulmonary disease, unspecified; E78.5 Hyperlipidemia, unspecified; I25.2 Old myocardial infarction; I48.0 Paroxysmal atrial fibrillation; G47.30 Sleep apnea, unspecified; Z87.442 Personal history of urinary calculi; Z95.0 Presence of cardiac pacemaker; Z68.36 Body mass index [BMI] 36.0-36.9, adult
CPT/HCPCS: 96365; 96366; G0463; J1642; J2260

== ENCOUNTER → 2023-01-17 | Outpatient (CLI) | payer MEDICARE, MEDICAID ==
[2023-01-17] VITALS (10 sets, daily range): BP systolic 92–120; BP diastolic 56–83
== END | disposition home or self-care (01) ==
LOC: CHF HDHVI 09:18
PROVIDERS: ATTEND Internal Medicine Cardiovascular Disease
DX: I13.0 Hypertensive heart and chronic kidney disease with heart failure and stage 1 through stage 4 chronic kidney disease, or unspecified chronic kidney disease (principal); N18.30 Chronic kidney disease, stage 3 unspecified; I50.42 Chronic combined systolic (congestive) and diastolic (congestive) heart failure; F41.9 Anxiety disorder, unspecified; I25.10 Atherosclerotic heart disease of native coronary artery without angina pectoris; J44.9 Chronic obstructive pulmonary disease, unspecified; E78.5 Hyperlipidemia, unspecified; E66.9 Obesity, unspecified; I25.2 Old myocardial infarction; I48.0 Paroxysmal atrial fibrillation; G47.30 Sleep apnea, unspecified; Z87.442 Personal history of urinary calculi; Z95.0 Presence of cardiac pacemaker; Z68.36 Body mass index [BMI] 36.0-36.9, adult; Z20.822 Contact with and (suspected) exposure to COVID-19
CPT/HCPCS: 96365; 96366; G0463; J1642; J2260

== ENCOUNTER → 2023-01-20 | Outpatient (CLI) | payer MEDICARE, MEDICAID ==
[2023-01-20] VITALS (9 sets, daily range): BP systolic 94–118; BP diastolic 43–83
[~2023-01-20] VITALS: Ht 182.9 cm; Wt 106.2 kg
[~2023-01-20] MED LIST changes: +MILRINONE 20MG/100ML 100 ML IV SCH
== END | disposition home or self-care (01) ==
LOC: CHF HDHVI 11:11
PROVIDERS: ATTEND Internal Medicine Cardiovascular Disease
DX: I13.0 Hypertensive heart and chronic kidney disease with heart failure and stage 1 through stage 4 chronic kidney disease, or unspecified chronic kidney disease (principal); I50.42 Chronic combined systolic (congestive) and diastolic (congestive) heart failure; N18.30 Chronic kidney disease, stage 3 unspecified; I25.10 Atherosclerotic heart disease of native coronary artery without angina pectoris; I25.2 Old myocardial infarction; I48.0 Paroxysmal atrial fibrillation; J44.9 Chronic obstructive pulmonary disease, unspecified; E78.5 Hyperlipidemia, unspecified; Z95.0 Presence of cardiac pacemaker
CPT/HCPCS: 96365; 96366; G0463; J1642; J2260

== ENCOUNTER → 2023-01-22 | Outpatient (CLI) | payer MEDICARE, MEDICAID ==
[2023-01-22] VITALS (12 sets, daily range): BP systolic 84–131; BP diastolic 54–81
[~2023-01-22] MED LIST changes: +POTASSIUM CHL 20 Meq TABLET PO ONE
== END | disposition home or self-care (01) ==
LOC: CHF HDHVI 09:47
PROVIDERS: ATTEND Internal Medicine Cardiovascular Disease
DX: I13.0 Hypertensive heart and chronic kidney disease with heart failure and stage 1 through stage 4 chronic kidney disease, or unspecified chronic kidney disease (principal); N18.30 Chronic kidney disease, stage 3 unspecified; I50.42 Chronic combined systolic (congestive) and diastolic (congestive) heart failure; I42.0 Dilated cardiomyopathy; E66.9 Obesity, unspecified; I25.10 Atherosclerotic heart disease of native coronary artery without angina pectoris; J44.9 Chronic obstructive pulmonary disease, unspecified; E78.5 Hyperlipidemia, unspecified; I25.2 Old myocardial infarction; I48.0 Paroxysmal atrial fibrillation; F41.9 Anxiety disorder, unspecified; G47.30 Sleep apnea, unspecified; Z95.0 Presence of cardiac pacemaker; Z68.36 Body mass index [BMI] 36.0-36.9, adult
CPT/HCPCS: 96365; 96366; G0463; J1642; J2260

== ENCOUNTER → 2023-02-03 | Outpatient (CLI) | payer MEDICARE, MEDICAID ==
[2023-02-03] VITALS (10 sets, daily range): BP systolic 83–125; BP diastolic 37–83
[~2023-02-03] MED LIST changes: +BUMETANIDE 2.5mg/10ml (0.25 mg/ml) INJ IV ONE; +BUMETANIDE INJECTION 20 ML ONE; -POTASSIUM CHL 20 Meq TABLET PO ONE; +POTASSIUM EFFERVESENT TAB 25 MEQ GT ONE; +POTASSIUM EFFERVESENT TAB 25 MEQ ONE
== END | disposition home or self-care (01) ==
LOC: CHF HDHVI 09:56
PROVIDERS: ATTEND Internal Medicine Cardiovascular Disease
DX: I13.0 Hypertensive heart and chronic kidney disease with heart failure and stage 1 through stage 4 chronic kidney disease, or unspecified chronic kidney disease (principal); E11.22 Type 2 diabetes mellitus with diabetic chronic kidney disease; I50.42 Chronic combined systolic (congestive) and diastolic (congestive) heart failure; N18.30 Chronic kidney disease, stage 3 unspecified; I25.10 Atherosclerotic heart disease of native coronary artery without angina pectoris; I25.2 Old myocardial infarction; I42.8 Other cardiomyopathies; I48.0 Paroxysmal atrial fibrillation; J44.9 Chronic obstructive pulmonary disease, unspecified; E78.5 Hyperlipidemia, unspecified; F41.9 Anxiety disorder, unspecified; Z95.0 Presence of cardiac pacemaker
CPT/HCPCS: 96365; 96366; 96375; G0463; J1642; J2260

== ENCOUNTER → 2023-02-05 | Outpatient (CLI) | payer MEDICARE, MEDICAID ==
[2023-02-05] VITALS (12 sets, daily range): BP systolic 90–120; BP diastolic 49–72
[~2023-02-05] MED LIST changes: -BUMETANIDE 2.5mg/10ml (0.25 mg/ml) INJ IV ONE; -BUMETANIDE INJECTION 20 ML ONE; +CYANOCOBALAMIN (B-12) 1000 MCG/1 ML VIAL IM ONE; +CYANOCOBALAMIN (B-12) 1000 MCG/1 ML VIAL ONE; +MAGNESIUM OXIDE 400 MG TAB ONE; +MAGNESIUM OXIDE 400 MG TAB PO ONE; +POTASSIUM CHL 20 Meq TABLET PO ONE; -POTASSIUM EFFERVESENT TAB 25 MEQ GT ONE; +POTASSIUM EFFERVESENT TAB 25 MEQ PO ONE
== END | disposition home or self-care (01) ==
LOC: CHF HDHVI 09:17
PROVIDERS: ATTEND Internal Medicine Cardiovascular Disease
DX: I13.0 Hypertensive heart and chronic kidney disease with heart failure and stage 1 through stage 4 chronic kidney disease, or unspecified chronic kidney disease (principal); E11.22 Type 2 diabetes mellitus with diabetic chronic kidney disease; I50.42 Chronic combined systolic (congestive) and diastolic (congestive) heart failure; N18.30 Chronic kidney disease, stage 3 unspecified; I25.10 Atherosclerotic heart disease of native coronary artery without angina pectoris; I25.2 Old myocardial infarction; I42.8 Other cardiomyopathies; I48.0 Paroxysmal atrial fibrillation; J44.9 Chronic obstructive pulmonary disease, unspecified; E78.5 Hyperlipidemia, unspecified; E66.9 Obesity, unspecified; Z68.36 Body mass index [BMI] 36.0-36.9, adult; Z95.0 Presence of cardiac pacemaker
CPT/HCPCS: 96365; 96366; 96372; G0463; J1642; J2260; J3420

== ENCOUNTER → 2023-02-10 | Outpatient (CLI) | payer MEDICARE, MEDICAID ==
[2023-02-10] VITALS (13 sets, daily range): BP systolic 74–130; BP diastolic 44–79
[~2023-02-10] MED LIST changes: +BUMETANIDE 2.5mg/10ml (0.25 mg/ml) INJ IV ONE; +BUMETANIDE INJECTION 10 ML ONE; -CYANOCOBALAMIN (B-12) 1000 MCG/1 ML VIAL IM ONE; -CYANOCOBALAMIN (B-12) 1000 MCG/1 ML VIAL ONE; +IOHEXOL 350 MG/ML 100ML IJ ONE; -MAGNESIUM OXIDE 400 MG TAB ONE; -MAGNESIUM OXIDE 400 MG TAB PO ONE; -MILRINONE 20MG/100ML 100 ML IV SCH; +POTASSIUM CHL 10 Meq TABLET PO ONE; -POTASSIUM EFFERVESENT TAB 25 MEQ ONE; -POTASSIUM EFFERVESENT TAB 25 MEQ PO ONE; +SODIUM CHLORIDE 0.9% 250 ML IV ONE
== END | disposition home or self-care (01) ==
LOC: CHF HDHVI 09:31
PROVIDERS: ATTEND Internal Medicine Cardiovascular Disease
DX: I13.0 Hypertensive heart and chronic kidney disease with heart failure and stage 1 through stage 4 chronic kidney disease, or unspecified chronic kidney disease (principal); E11.22 Type 2 diabetes mellitus with diabetic chronic kidney disease; N18.30 Chronic kidney disease, stage 3 unspecified; I50.42 Chronic combined systolic (congestive) and diastolic (congestive) heart failure; I25.5 Ischemic cardiomyopathy; I42.1 Obstructive hypertrophic cardiomyopathy; M54.50 Low back pain, unspecified; I25.10 Atherosclerotic heart disease of native coronary artery without angina pectoris; F41.9 Anxiety disorder, unspecified; J44.9 Chronic obstructive pulmonary disease, unspecified; E78.5 Hyperlipidemia, unspecified; I25.2 Old myocardial infarction; I48.0 Paroxysmal atrial fibrillation; G47.30 Sleep apnea, unspecified; E66.9 Obesity, unspecified; Z68.36 Body mass index [BMI] 36.0-36.9, adult; Z95.0 Presence of cardiac pacemaker
CPT/HCPCS: 71260; 96365; 96366; 96375; G0463; J1642; J2260; J7050; Q9967

== ENCOUNTER → 2023-02-12 | Outpatient (CLI) | payer MEDICARE, MEDICAID ==
[2023-02-12] VITALS (12 sets, daily range): BP systolic 94–133; BP diastolic 65–95
[~2023-02-12] MED LIST changes: -BUMETANIDE 2.5mg/10ml (0.25 mg/ml) INJ IV ONE; -BUMETANIDE INJECTION 10 ML ONE; -IOHEXOL 350 MG/ML 100ML IJ ONE; -POTASSIUM CHL 10 Meq TABLET PO ONE; -POTASSIUM CHL 20 Meq TABLET PO ONE; -SODIUM CHLORIDE 0.9% 250 ML IV ONE
== END | disposition home or self-care (01) ==
LOC: CHF HDHVI 09:57
PROVIDERS: ATTEND Internal Medicine Cardiovascular Disease
DX: I13.0 Hypertensive heart and chronic kidney disease with heart failure and stage 1 through stage 4 chronic kidney disease, or unspecified chronic kidney disease (principal); E11.22 Type 2 diabetes mellitus with diabetic chronic kidney disease; I50.43 Acute on chronic combined systolic (congestive) and diastolic (congestive) heart failure; N18.30 Chronic kidney disease, stage 3 unspecified; I25.10 Atherosclerotic heart disease of native coronary artery without angina pectoris; I25.2 Old myocardial infarction; I48.0 Paroxysmal atrial fibrillation; J44.9 Chronic obstructive pulmonary disease, unspecified; E78.5 Hyperlipidemia, unspecified; F41.9 Anxiety disorder, unspecified; Z95.0 Presence of cardiac pacemaker
CPT/HCPCS: 96365; 96366; G0463; J1642; J2260

== ENCOUNTER → 2023-02-14 | Outpatient (CLI) | payer MEDICARE, MEDICAID ==
[2023-02-14] VITALS (10 sets, daily range): BP systolic 91–138; BP diastolic 61–85
== END | disposition home or self-care (01) ==
LOC: CHF HDHVI 10:12
PROVIDERS: ATTEND Internal Medicine Cardiovascular Disease
DX: I13.0 Hypertensive heart and chronic kidney disease with heart failure and stage 1 through stage 4 chronic kidney disease, or unspecified chronic kidney disease (principal); E11.22 Type 2 diabetes mellitus with diabetic chronic kidney disease; N18.30 Chronic kidney disease, stage 3 unspecified; I50.43 Acute on chronic combined systolic (congestive) and diastolic (congestive) heart failure; I25.10 Atherosclerotic heart disease of native coronary artery without angina pectoris; F41.9 Anxiety disorder, unspecified; J44.9 Chronic obstructive pulmonary disease, unspecified; E78.5 Hyperlipidemia, unspecified; I25.2 Old myocardial infarction; I48.0 Paroxysmal atrial fibrillation; G47.30 Sleep apnea, unspecified; Z95.0 Presence of cardiac pacemaker; Z87.442 Personal history of urinary calculi
CPT/HCPCS: 96365; 96366; G0463; J1642; J2260

== ENCOUNTER → 2023-02-19 | Outpatient (CLI) | payer MEDICARE, MEDICAID ==
[2023-02-19] VITALS (11 sets, daily range): BP systolic 84–120; BP diastolic 50–75
== END | disposition home or self-care (01) ==
LOC: CHF HDHVI 10:08
PROVIDERS: ATTEND Internal Medicine Cardiovascular Disease
DX: I13.0 Hypertensive heart and chronic kidney disease with heart failure and stage 1 through stage 4 chronic kidney disease, or unspecified chronic kidney disease (principal); E11.22 Type 2 diabetes mellitus with diabetic chronic kidney disease; N18.30 Chronic kidney disease, stage 3 unspecified; I50.42 Chronic combined systolic (congestive) and diastolic (congestive) heart failure; I25.5 Ischemic cardiomyopathy; I25.10 Atherosclerotic heart disease of native coronary artery without angina pectoris; F41.9 Anxiety disorder, unspecified; J44.9 Chronic obstructive pulmonary disease, unspecified; E78.5 Hyperlipidemia, unspecified; I25.2 Old myocardial infarction; I48.0 Paroxysmal atrial fibrillation; G47.30 Sleep apnea, unspecified; E66.9 Obesity, unspecified; Z68.36 Body mass index [BMI] 36.0-36.9, adult; Z95.0 Presence of cardiac pacemaker
CPT/HCPCS: 93005; 96365; 96366; G0463; J1642; J2260

== ENCOUNTER → 2023-02-24 | Outpatient (CLI) | payer MEDICARE, MEDICAID ==
[~2023-02-24] MED LIST changes: -MILRINONE 20MG/100ML 100 ML IV ONE
== END | disposition home or self-care (01) ==
LOC: XYW 07:30
PROVIDERS: ATTEND Internal Medicine Cardiovascular Disease
DX: I25.10 Atherosclerotic heart disease of native coronary artery without angina pectoris (principal); I10 Essential (primary) hypertension
CPT/HCPCS: 78306; A9503

== ENCOUNTER → 2023-02-25 | Outpatient (CLI) | payer MEDICARE, MEDICAID ==
[2023-02-25] VITALS (10 sets, daily range): BP systolic 89–107; BP diastolic 44–77
[~2023-02-25] MED LIST changes: +MILRINONE 20MG/100ML 100 ML IV ONE; +POTASSIUM CHL 20 Meq TABLET PO ONE
== END | disposition home or self-care (01) ==
LOC: CHF HDHVI 10:16
PROVIDERS: ATTEND Internal Medicine Cardiovascular Disease
DX: I13.0 Hypertensive heart and chronic kidney disease with heart failure and stage 1 through stage 4 chronic kidney disease, or unspecified chronic kidney disease (principal); E11.22 Type 2 diabetes mellitus with diabetic chronic kidney disease; I50.42 Chronic combined systolic (congestive) and diastolic (congestive) heart failure; N18.30 Chronic kidney disease, stage 3 unspecified; E87.6 Hypokalemia; I25.10 Atherosclerotic heart disease of native coronary artery without angina pectoris; I25.2 Old myocardial infarction; I48.0 Paroxysmal atrial fibrillation; I42.8 Other cardiomyopathies; J44.9 Chronic obstructive pulmonary disease, unspecified; E78.5 Hyperlipidemia, unspecified; F41.9 Anxiety disorder, unspecified; E66.9 Obesity, unspecified; Z68.36 Body mass index [BMI] 36.0-36.9, adult; Z95.0 Presence of cardiac pacemaker
CPT/HCPCS: 96365; 96366; G0463; J1642; J2260

== ENCOUNTER → 2023-02-27 | Outpatient (CLI) | payer MEDICARE, MEDICAID ==
[2023-02-27] VITALS (11 sets, daily range): BP systolic 93–124; BP diastolic 41–93
[~2023-02-27] MED LIST changes: -POTASSIUM CHL 20 Meq TABLET PO ONE
== END | disposition home or self-care (01) ==
LOC: CHF HDHVI 10:04
PROVIDERS: ATTEND Internal Medicine Cardiovascular Disease
DX: I13.0 Hypertensive heart and chronic kidney disease with heart failure and stage 1 through stage 4 chronic kidney disease, or unspecified chronic kidney disease (principal); E11.22 Type 2 diabetes mellitus with diabetic chronic kidney disease; I50.43 Acute on chronic combined systolic (congestive) and diastolic (congestive) heart failure; N18.30 Chronic kidney disease, stage 3 unspecified; I25.5 Ischemic cardiomyopathy; I25.10 Atherosclerotic heart disease of native coronary artery without angina pectoris; I25.2 Old myocardial infarction; I48.0 Paroxysmal atrial fibrillation; J44.9 Chronic obstructive pulmonary disease, unspecified; E78.5 Hyperlipidemia, unspecified; F41.9 Anxiety disorder, unspecified; E66.9 Obesity, unspecified; Z68.36 Body mass index [BMI] 36.0-36.9, adult; Z95.0 Presence of cardiac pacemaker
CPT/HCPCS: 96365; 96366; G0463; J1642; J2260

== ENCOUNTER → 2023-03-03 | Outpatient (CLI) | payer MEDICARE, MEDICAID ==
[~2023-03-03] VITALS: Ht 30.5 cm; Wt 105.9 kg
[2023-03-03] VITALS (12 sets, daily range): BP systolic 83–113; BP diastolic 55–83
[~2023-03-03] MED LIST changes: +CYANOCOBALAMIN (B-12) 1000 MCG/1 ML VIAL IM ONE; +CYANOCOBALAMIN (B-12) 1000 MCG/1 ML VIAL ONE; +MILRINONE 20MG/100ML 100 ML IV SCH
== END | disposition home or self-care (01) ==
LOC: CHF HDHVI 10:23
PROVIDERS: ATTEND Internal Medicine Cardiovascular Disease
DX: I13.0 Hypertensive heart and chronic kidney disease with heart failure and stage 1 through stage 4 chronic kidney disease, or unspecified chronic kidney disease (principal); E11.22 Type 2 diabetes mellitus with diabetic chronic kidney disease; I50.43 Acute on chronic combined systolic (congestive) and diastolic (congestive) heart failure; N18.30 Chronic kidney disease, stage 3 unspecified; I42.0 Dilated cardiomyopathy; D64.9 Anemia, unspecified; R06.02 Shortness of breath; I25.10 Atherosclerotic heart disease of native coronary artery without angina pectoris; I25.2 Old myocardial infarction; I48.0 Paroxysmal atrial fibrillation; E78.5 Hyperlipidemia, unspecified; E66.9 Obesity, unspecified; Z68.36 Body mass index [BMI] 36.0-36.9, adult; Z95.0 Presence of cardiac pacemaker
CPT/HCPCS: 96365; 96366; 96372; G0463; J1642; J2260; J3420

== ENCOUNTER → 2023-03-19 | Outpatient (CLI) | payer MEDICARE, MEDICAID ==
[~2023-03-19] MED LIST changes: -CYANOCOBALAMIN (B-12) 1000 MCG/1 ML VIAL IM ONE; -CYANOCOBALAMIN (B-12) 1000 MCG/1 ML VIAL ONE; +KETOROLAC TROMETH 30 MG/ML 1ML VIAL IV ONE; +KETOROLAC TROMETH 60MG/2ML VIAL IM ONE; +KETOROLAC TROMETH 60MG/2ML VIAL ONE; -MILRINONE 20MG/100ML 100 ML IV ONE; -MILRINONE 20MG/100ML 100 ML IV SCH; +ONDANSETRON HCL 4 MG/2 ML VIAL IV ONE; +ONDANSETRON HCL 4 MG/2 ML VIAL ONE
[2023-03-19 11:30] VITALS: BP 137/82
[2023-03-19 13:23] VITALS: BP 96/67
== END | disposition home or self-care (01) ==
LOC: CHF HDHVI 11:25
PROVIDERS: ATTEND Internal Medicine Cardiovascular Disease
DX: M54.50 Low back pain, unspecified (principal); R11.0 Nausea; R42 Dizziness and giddiness; R51.9 Headache, unspecified; I13.0 Hypertensive heart and chronic kidney disease with heart failure and stage 1 through stage 4 chronic kidney disease, or unspecified chronic kidney disease; E11.22 Type 2 diabetes mellitus with diabetic chronic kidney disease; I50.43 Acute on chronic combined systolic (congestive) and diastolic (congestive) heart failure; N18.30 Chronic kidney disease, stage 3 unspecified; I25.10 Atherosclerotic heart disease of native coronary artery without angina pectoris; I25.5 Ischemic cardiomyopathy; I25.2 Old myocardial infarction; I48.0 Paroxysmal atrial fibrillation; J44.9 Chronic obstructive pulmonary disease, unspecified; E78.5 Hyperlipidemia, unspecified; F41.9 Anxiety disorder, unspecified; E66.9 Obesity, unspecified; Z68.36 Body mass index [BMI] 36.0-36.9, adult; Z95.0 Presence of cardiac pacemaker
CPT/HCPCS: 96372; 96374; 96375; G0463; J1642; J1885; J2405

== ENCOUNTER 2023-04-10 20:12 | Inpatient (IN) | payer MEDICARE, MEDICAID ==
[~2023-04-10] VITALS: Ht 172.7 cm; Wt 105.6 kg
[~2023-04-10 20:12] MED LIST changes: -KETOROLAC TROMETH 30 MG/ML 1ML VIAL IV ONE; -KETOROLAC TROMETH 60MG/2ML VIAL IM ONE; -KETOROLAC TROMETH 60MG/2ML VIAL ONE; -ONDANSETRON HCL 4 MG/2 ML VIAL IV ONE; -ONDANSETRON HCL 4 MG/2 ML VIAL ONE
[2023-04-10 20:54] VITALS: PULSE 108; RESP 37; O2SAT 95
[2023-04-10 20:59] LABS: Basophils # (auto) 0.1 10 ^3/uL (0-0.2); Eosinophils # (auto) 0.1 10 ^3/uL (0-0.8); Mean Corpuscular Hemoglobin 23.4 pg (28.0-32.0)
[2023-04-10 21:01] LABS: Basophils % (auto) 1.2 % (0.0-2.0); Eosinophils % (auto) 0.9 % (0.0-7.0); Hematocrit 45.8 % (41.0-53.0); Hemoglobin 14.6 g/dL (13.5-17.5); Lymphocytes # (auto) 1.3 10 ^3/uL (0.4-5.4); Lymphocytes % (auto) 15.7 % (10.0-50.0); Mean Corpuscular Hgb Conc. 31.9 g/dL (32.0-36.0); Mean Corpuscular Volume 73.3 fL (80.0-100.0); Monocytes # (auto) 0.8 10 ^3/uL (0-1.3); Monocytes % (auto) 9.6 % (0.0-12.0); Neutrophils # (auto) 5.8 10 ^3/uL (1.6-8.6); Neutrophils % (auto) 72.6 % (37.0-80.0); Nucleated Red Blood Cells % 0.4 %; Red Blood Cells 6.25 10^6/uL (4.5-5.90); Red Cell Distribution Width 20.9 % (11.8-14.3)
[2023-04-10 21:09] LABS: Albumin 3.1 g/dL (3.4-5.0); Calcium 8.8 mg/dL (8.5-10.1)
[2023-04-10 21:12] LABS: BUN/Creatinine Ratio 21.2 (10.0-20.0); Bilirubin, Total 0.7 mg/dL (0.2-1.0)
[2023-04-10 21:14] LABS: INR 1.24 (0.9-1.15); Partial Thromboplastin Time 32.7 SEC (24.5-34.5); Prothrombin Time 12.8 sec (9.3-11.8)
[2023-04-10] MEDS ORDERED: cefTRIAXone 1GM/50ML D5W 50 ML IV SCH (21:15)
[2023-04-10] MEDS ORDERED: ALBUMIN 25% 50 ML IV ONE (21:15)
[2023-04-10] MEDS ORDERED: AZITHROMYCIN 500MG/ 250ML 250 ML IV ONE (21:15)
[2023-04-10] MEDS ORDERED: ONDANSETRON HCL 4 MG/2 ML VIAL IV ONE (21:15)
[2023-04-10] MEDS ORDERED: cefTRIAXone 1GM/50ML D5W 50 ML IV ONE (21:15)
[2023-04-10] MEDS ORDERED: ACETAMINOPHEN 325 MG TAB PO PRN ×2 (21:15→22:30)
[2023-04-10] MEDS ORDERED: ACETAMINOPHEN 325 MG TAB PO ONE (21:15)
[2023-04-10] MEDS ORDERED: PANTOPRAZOLE 40 MG/10 ML VIAL INJ IV ONE (21:15)
[2023-04-10] MEDS ORDERED: VANCOMYCIN HCL 1000 MG VL IV ONE (21:15)
[2023-04-10] MEDS ORDERED: ATORVASTATIN 20 MG TAB PO ONE (21:30)
[2023-04-10] MEDS ORDERED: HEPARIN SODIUM (PORCINE) 5000 UNITS/ML 1ML VIAL IV ONE (21:30)
[2023-04-10] MEDS ORDERED: BUMETANIDE 2.5mg/10ml (0.25 mg/ml) INJ IV ONE (21:30)
[2023-04-10] MEDS ORDERED: LORazepam 2MG/ML-1ML VIAL IV ONE (21:45)
[2023-04-10 22:02] LABS: Base Excess 4.2 mmol/L (-2.0-2.0)
[2023-04-10 22:06] LABS: Cholesterol 120 mg/dL (< 200); HDL Cholesterol 38 mg/dL (40-59); LDL Cholesterol 80 mg/dL (< 100); Triglycerides 80 mg/dL (< 150)
[2023-04-10] MEDS ORDERED: NITROGLYCERIN 0.4 MG SL TAB SL PRN (22:30)
[2023-04-10] MEDS ORDERED: HYDROcodone-ACET 5/325MG TAB PO PRN (22:30)
[2023-04-10] MEDS ORDERED: POTASSIUM CHL 20 Meq TABLET PO ONE (22:30)
[2023-04-10] MEDS: methylPREDNISolone SOD SUCC 40 MG/ML VL IV SCH (22:32)
[2023-04-10] MEDS ORDERED: HEPARIN DRIP/D5W 100UNITS/ML 250 ML IV SCH (23:30)
[2023-04-11] VITALS (50 sets, daily range): BP systolic 82–155; BP diastolic 37–125; PULSE 57–108; RESP 18–24; TEMP 97.5–99; O2SAT 94–100
[2023-04-11] MEDS ORDERED: ETOMIDATE (2MG/ML) 20ML VIAL IV ONE ×2 (00:05→00:15)
[2023-04-11] MEDS ORDERED: SUCCINYLCHOLINE CHLORIDE 20 MG/ML 10ML VIAL IV ONE ×2 (00:05→00:15)
[2023-04-11] MEDS ORDERED: AMIODARONE 450mg/250ml AE 250 ML IV SCH ×3 (00:15→15:45)
[2023-04-11] MEDS ORDERED: MIDAZOLAM DRIP 50 mg/50mL 50 ML IV ONE (00:22)
[2023-04-11] MEDS: MIDAZOLAM DRIP 50 mg/50mL 50 ML IV SCH ×3 (00:25→22:45)
[2023-04-11 00:40] LABS: Urine Bacteria FEW /hpf (None Seen); Urine Blood Negative /uL (Negative); Urine Clarity Clear (Clear); Urine Color Yellow (Yellow); Urine Hyaline Cast MOD /lpf (0 - 2); Urine Mucus FEW (None Seen); Urine Protein, UAD 1+ (Negative); Urine Specific Gravity 1.014 (1.001-1.035); Urine WBC 12 /hpf (0 - 3); Urine pH 5.5 (5.0-8.0)
[2023-04-11 00:40] LABS: Hematocrit 46.7 % (41.0-53.0); Mean Corpuscular Volume 75.4 fL (80.0-100.0)
[2023-04-11 00:42] LABS: Hemoglobin 14.4 g/dL (13.5-17.5); Mean Corpuscular Hemoglobin 23.2 pg (28.0-32.0); Mean Corpuscular Hgb Conc. 30.8 g/dL (32.0-36.0); White Blood Cell 14.2 10^3/uL (4.4-10.8)
[2023-04-11] MEDS ORDERED: ROCURONIUM 10MG/ML 10ML VIAL IV ONE (00:45)
[2023-04-11 00:47] LABS: Albumin 3.4 g/dL (3.4-5.0); BUN/Creatinine Ratio 19.7 (10.0-20.0); Calcium 8.5 mg/dL (8.5-10.1); Potassium 3.5 mmol/L (3.5-5.1)
[2023-04-11 00:50] LABS: Bilirubin, Total 0.8 mg/dL (0.2-1.0); Total Protein 7.3 g/dL (6.4-8.2)
[2023-04-11 00:52] LABS: Lactic Acid w/Reflex 3.6 mmol/L (0.4-2.0)
[2023-04-11] MEDS ORDERED: ADENOSINE 6 MG/2 ML INJ IV ONE ×2 (01:00)
[2023-04-11] MEDS ORDERED: dilTIAZem 25 MG/5 ML VIAL IV ONE ×2 (01:00→01:12)
[2023-04-11 01:07] LABS: Red Cell Distribution Width 21.1 % (11.8-14.3)
[2023-04-11 01:08] LABS: Basophils % (manual) 0 (0.0-2.0); Blast Cells 0; Myelocytes % 0; Promyelocytes % 0; Reactive Lymphocytes 0
[2023-04-11] MEDS ORDERED: dilTIAZem 125mg/125ml BAG KIT 125 ML IV ONE (01:12)
[2023-04-11] MEDS ORDERED: HEPARIN DRIP/D5W 100UNITS/ML 250 ML IV SCH (01:15)
[2023-04-11] MEDS: dilTIAZem 125mg/125ml BAG KIT 125 ML IV SCH (01:20)
[2023-04-11 01:28] LABS: Base Excess -2.7 mmol/L (-2.0-2.0)
[2023-04-11 01:38] LABS: Band Neutrophils % (manual) 10; Eosinophils % (manual) 1 (0-7); Lymphocytes % (manual) 18 (10.0-50.0); Metamyelocytes % 2
[2023-04-11 01:39] LABS: Anisocytosis Slight; Hypochromia Moderate; Large Platelets FEW; Monocytes % (manual) 3 (0-12); Ovalocytes FEW; Platelet Estimate Adequate
[2023-04-11] MEDS ORDERED: LIDOCAINE HCL 100 MG/5ML (2%) SYRG INJ IV ONE ×2 (05:00→20:35)
[2023-04-11] MEDS ORDERED: AMIODARONE BOLUS KIT 100 ML IV ONE ×2 (05:00)
[2023-04-11] MEDS ORDERED: fentaNYL Drip 2500mCg/250mlNS 250 ML IV ONE (06:00)
[2023-04-11] MEDS ORDERED: VANCOMYCIN 1,500 MG in D5W 5% 250 ML IV SCH (06:30)
[2023-04-11] MEDS: PIPERACILLIN-TAZOB 3.375GM 100 ML IV SCH ×3 (06:39→21:17)
[2023-04-11 06:58] LABS: Base Excess 3.6 mmol/L (-2.0-2.0)
[2023-04-11] MEDS: fentaNYL Drip 2500mCg/250mlNS 250 ML IV SCH (07:18)
[2023-04-11] MEDS: SODIUM CHLOR 0.9% PF (SALINE LOCK) 10ML VIAL/SYR IV SCH ×3 (07:19→21:17)
[2023-04-11] MEDS ORDERED: NOREPINEPHRINE 8 MG/250ML KIT 250 ML IV ONE (07:26)
[2023-04-11] MEDS: NOREPINEPHRINE 8 MG/250ML KIT 250 ML IV SCH (07:30)
[2023-04-11] MEDS ORDERED: PHENYLEPHRINE IV 250 ML IV ONE (09:29)
[2023-04-11] MEDS ORDERED: PHENYLEPHRINE IV 250 ML IV SCH (09:30)
[2023-04-11] MEDS ORDERED: VANCOMYCIN PER PHARMACY 0 MG IV SCH (09:30)
[2023-04-11] MEDS ORDERED: VANCOMYCIN 1GM/250ML 250 ML IV ONE (09:30)
[2023-04-11] MEDS ORDERED: OPTISON 3ml Vial for INJ IV ONE ×2 (09:45→10:45)
[2023-04-11] MEDS ORDERED: VANCOMYCIN 1GM/250ML 250 ML IV SCH (10:00)
[2023-04-11] MEDS ORDERED: APIXABAN 5 MG TAB PO SCH (10:00)
[2023-04-11] MEDS: CARVEDILOL 3.125 MG TAB PO SCH ×2 (10:00→21:16)
[2023-04-11] MEDS ORDERED: POTASSIUM CHL 20 Meq TABLET PO SCH (10:00)
[2023-04-11] MEDS: FAMOTIDINE (10MG/ML) 2ML VL IV SCH ×2 (10:12→21:15)
[2023-04-11] MEDS: methylPREDNISolone SOD SUCC 40 MG/ML VL IV SCH ×2 (10:13→21:15)
[2023-04-11] MEDS: BUMETANIDE 2.5mg/10ml (0.25 mg/ml) INJ IV SCH (10:14)
[2023-04-11 11:03] LABS: INR 1.3 (0.9-1.15); Partial Thromboplastin Time 59.6 SEC (24.5-34.5); Prothrombin Time 13.4 sec (9.3-11.8)
[2023-04-11 14:36] LABS: Base Excess 2.4 mmol/L (-2.0-2.0)
[2023-04-11] MEDS: APIXABAN 5 MG TAB PO SCH ×2 (14:57→21:15)
[2023-04-11] MEDS: FUROSEMIDE INJECTION 100 MG in SODIUM CHL 0.9% 100 ML IV SCH ×2 (14:58→21:08)
[2023-04-11] MEDS: MILRINONE 20MG/100ML 100 ML IV SCH ×2 (15:05→22:44)
[2023-04-11] MEDS ORDERED: AMIODARONE HCL (50 MG/ ML) 3 ML VIAL IV ONE (20:34)
[2023-04-11] MEDS ORDERED: CALCIUM CHLOR(10%) 100MG/ML 10ML SYRINGE IV ONE (20:35)
[2023-04-11] MEDS: ATORVASTATIN 20 MG TAB PO SCH (21:16)
[2023-04-11 21:55] LABS: Magnesium 1.8 mg/dL (1.6-2.6)
[2023-04-11 22:08] LABS: Potassium 2.7 mmol/L (3.5-5.1)
[2023-04-11] MEDS: PHENYLEPHRINE INJ 80 MG in SODIUM CHL 0.9% 242 ML IV SCH (22:44)
[2023-04-11] MEDS: POTASSIUM CHL 20MEQ/100ML 100 ML IV SCH (23:52)
[2023-04-11] MEDS: MAGNESIUM SULFATE 1GM/100ML 100 ML IV SCH (23:52)
[2023-04-12] VITALS (103 sets, daily range): BP systolic 81–110; BP diastolic 46–79; PULSE 59–68; RESP 18–23; TEMP 96.4–98.1; O2SAT 87–100
[2023-04-12] MEDS: POTASSIUM CHL 20MEQ/100ML 100 ML IV SCH ×8 (00:49→17:11)
[2023-04-12] MEDS: MAGNESIUM SULFATE 1GM/100ML 100 ML IV SCH (00:51)
[2023-04-12] MEDS: dilTIAZem 125mg/125ml BAG KIT 125 ML IV SCH (01:00)
[2023-04-12 04:43] LABS: Basophils # (auto) 0 10 ^3/uL (0-0.2); Eosinophils # (auto) 0 10 ^3/uL (0-0.8); Hemoglobin 13.9 g/dL (13.5-17.5); Lymphocytes # (auto) 0.5 10 ^3/uL (0.4-5.4); Mean Corpuscular Hgb Conc. 31.6 g/dL (32.0-36.0); Mean Corpuscular Volume 73.6 fL (80.0-100.0); Monocytes # (auto) 0.6 10 ^3/uL (0-1.3)
[2023-04-12 04:45] LABS: Basophils % (auto) 0.1 % (0.0-2.0); Lymphocytes % (auto) 5.8 % (10.0-50.0); Mean Corpuscular Hemoglobin 23.2 pg (28.0-32.0); Neutrophils # (auto) 7.6 10 ^3/uL (1.6-8.6); Neutrophils % (auto) 87.1 % (37.0-80.0); Nucleated Red Blood Cells % 0.2 %; Red Blood Cells 5.98 10^6/uL (4.5-5.90); White Blood Cell 8.8 10^3/uL (4.4-10.8)
[2023-04-12 05:10] LABS: Red Cell Distribution Width 20.6 % (11.8-14.3)
[2023-04-12] MEDS: FUROSEMIDE INJECTION 100 MG in SODIUM CHL 0.9% 100 ML IV SCH ×6 (05:12→22:33)
[2023-04-12 05:31] LABS: Calcium 8.4 mg/dL (8.5-10.1)
[2023-04-12 05:33] LABS: BUN/Creatinine Ratio 20.4 (10.0-20.0)
[2023-04-12 05:35] LABS: Bilirubin, Total 0.9 mg/dL (0.2-1.0); Total Protein 7.1 g/dL (6.4-8.2)
[2023-04-12 05:46] LABS: Potassium 2.9 mmol/L (3.5-5.1)
[2023-04-12] MEDS: MILRINONE 20MG/100ML 100 ML IV SCH ×3 (05:53→23:21)
[2023-04-12] MEDS: PIPERACILLIN-TAZOB 3.375GM 100 ML IV SCH ×3 (05:53→21:17)
[2023-04-12] MEDS: BUMETANIDE 2.5mg/10ml (0.25 mg/ml) INJ IV SCH (06:00)
[2023-04-12] MEDS: SODIUM CHLOR 0.9% PF (SALINE LOCK) 10ML VIAL/SYR IV SCH ×3 (06:02→21:18)
[2023-04-12 07:24] LABS: Anisocytosis Slight; Hypochromia Slight; Platelet Estimate Adequate
[2023-04-12] MEDS: NOREPINEPHRINE 8 MG/250ML KIT 250 ML IV SCH (07:30)
[2023-04-12 07:40] LABS: Base Excess 3.8 mmol/L (-2.0-2.0)
[2023-04-12] MEDS: fentaNYL Drip 2500mCg/250mlNS 250 ML IV SCH ×2 (09:00→21:21)
[2023-04-12] MEDS ORDERED: VANCOMYCIN 1GM/250ML 250 ML IV ONE (09:15)
[2023-04-12] MEDS: CARVEDILOL 3.125 MG TAB PO SCH ×2 (10:00→22:00)
[2023-04-12] MEDS: PHENYLEPHRINE INJ 80 MG in SODIUM CHL 0.9% 242 ML IV SCH ×2 (10:12→22:29)
[2023-04-12] MEDS: methylPREDNISolone SOD SUCC 40 MG/ML VL IV SCH ×2 (10:20→21:18)
[2023-04-12] MEDS: FAMOTIDINE (10MG/ML) 2ML VL IV SCH ×2 (10:20→21:18)
[2023-04-12] MEDS: APIXABAN 5 MG TAB PO SCH ×2 (10:23→21:18)
[2023-04-12] MEDS: MIDAZOLAM DRIP 50 mg/50mL 50 ML IV SCH ×2 (17:31→23:22)
[2023-04-12] MEDS: ATORVASTATIN 20 MG TAB PO SCH (21:18)
[2023-04-13] VITALS (102 sets, daily range): BP systolic 79–112; BP diastolic 46–82; PULSE 58–68; RESP 13–23; TEMP 97.5–99.1; O2SAT 93–100
[2023-04-13] MEDS: dilTIAZem 125mg/125ml BAG KIT 125 ML IV SCH (01:00)
[2023-04-13] MEDS: MILRINONE 20MG/100ML 100 ML IV SCH ×3 (01:09→15:55)
[2023-04-13] MEDS: FUROSEMIDE INJECTION 100 MG in SODIUM CHL 0.9% 100 ML IV SCH ×5 (04:09→23:12)
[2023-04-13 04:17] LABS: Albumin 2.9 g/dL (3.4-5.0); BUN/Creatinine Ratio 22.1 (10.0-20.0); Calcium 8.8 mg/dL (8.5-10.1); Potassium 3.4 mmol/L (3.5-5.1)
[2023-04-13] MEDS: SODIUM CHLOR 0.9% PF (SALINE LOCK) 10ML VIAL/SYR IV SCH ×3 (05:47→23:01)
[2023-04-13] MEDS: PIPERACILLIN-TAZOB 3.375GM 100 ML IV SCH ×3 (05:58→23:01)
[2023-04-13] MEDS: MIDAZOLAM DRIP 50 mg/50mL 50 ML IV SCH ×3 (05:59→18:05)
[2023-04-13 06:52] LABS: Base Excess 2.7 mmol/L (-2.0-2.0)
[2023-04-13] MEDS: NOREPINEPHRINE 8 MG/250ML KIT 250 ML IV SCH (07:30)
[2023-04-13] MEDS: POTASSIUM CHL 20MEQ/100ML 100 ML IV SCH (09:40)
[2023-04-13] MEDS: FAMOTIDINE (10MG/ML) 2ML VL IV SCH ×2 (09:40→23:00)
[2023-04-13] MEDS: APIXABAN 5 MG TAB PO SCH ×2 (09:43→23:01)
[2023-04-13] MEDS: CARVEDILOL 3.125 MG TAB PO SCH ×2 (09:43→22:00)
[2023-04-13] MEDS ORDERED: VANCOMYCIN 500 MG in D5W 5% 100 ML IV ONE (10:00)
[2023-04-13] MEDS ORDERED: VANCOMYCIN 1GM/250ML 250 ML IV ONE (10:00)
[2023-04-13] MEDS: methylPREDNISolone SOD SUCC 40 MG/ML VL IV SCH ×2 (11:12→23:00)
[2023-04-13] MEDS: PHENYLEPHRINE INJ 80 MG in SODIUM CHL 0.9% 242 ML IV SCH (15:36)
[2023-04-13] MEDS: fentaNYL Drip 2500mCg/250mlNS 250 ML IV SCH (18:03)
[2023-04-13] MEDS: ATORVASTATIN 20 MG TAB PO SCH (23:12)
[2023-04-14] VITALS (109 sets, daily range): BP systolic 82–130; BP diastolic 50–90; PULSE 59–119; RESP 16–22; TEMP 97.3–99.9; O2SAT 94–100
[2023-04-14] MEDS: dilTIAZem 125mg/125ml BAG KIT 125 ML IV SCH (01:00)
[2023-04-14] MEDS: MIDAZOLAM DRIP 50 mg/50mL 50 ML IV SCH ×2 (01:57→07:38)
[2023-04-14] MEDS: FUROSEMIDE INJECTION 100 MG in SODIUM CHL 0.9% 100 ML IV SCH ×4 (05:26→15:50)
[2023-04-14] MEDS: SODIUM CHLOR 0.9% PF (SALINE LOCK) 10ML VIAL/SYR IV SCH ×3 (05:26→22:13)
[2023-04-14] MEDS: PIPERACILLIN-TAZOB 3.375GM 100 ML IV SCH ×2 (05:26→13:54)
[2023-04-14 06:58] LABS: Albumin 2.7 g/dL (3.4-5.0); Calcium 9.1 mg/dL (8.5-10.1); Potassium 3.3 mmol/L (3.5-5.1)
[2023-04-14 07:02] LABS: BUN/Creatinine Ratio 23.1 (10.0-20.0); Bilirubin, Total 0.7 mg/dL (0.2-1.0); Total Protein 6.9 g/dL (6.4-8.2)
[2023-04-14] MEDS: NOREPINEPHRINE 8 MG/250ML KIT 250 ML IV SCH (07:30)
[2023-04-14 09:13] LABS: Base Excess 2.3 mmol/L (-2.0-2.0)
[2023-04-14] MEDS: MILRINONE 20MG/100ML 100 ML IV SCH ×2 (09:46→17:17)
[2023-04-14] MEDS: FAMOTIDINE (10MG/ML) 2ML VL IV SCH ×2 (09:56→22:12)
[2023-04-14] MEDS: methylPREDNISolone SOD SUCC 40 MG/ML VL IV SCH ×2 (09:56→22:12)
[2023-04-14] MEDS: APIXABAN 5 MG TAB PO SCH ×2 (09:57→22:12)
[2023-04-14] MEDS: CARVEDILOL 3.125 MG TAB PO SCH ×2 (09:57→22:00)
[2023-04-14] MEDS: POTASSIUM CHL 20MEQ/100ML 100 ML IV SCH ×4 (09:57→18:25)
[2023-04-14] MEDS ORDERED: VANCOMYCIN 750mg/250ml 250 ML IV SCH (16:00)
[2023-04-14] MEDS: CEFEPIME 2GM/50ML NS 50 ML IV SCH (22:11)
[2023-04-14] MEDS: ATORVASTATIN 20 MG TAB PO SCH (22:12)
[2023-04-15] VITALS (105 sets, daily range): BP systolic 79–128; BP diastolic 44–92; PULSE 59–97; RESP 10–24; TEMP 96.3–99.3; O2SAT 93–99
[2023-04-15] MEDS ORDERED: DexAMETHasone SOD PHOS 4 MG/1ML SDV INJ ONE (01:42)
[2023-04-15] MEDS ORDERED: DexmedeTOMIDine 4 ML IV ONE (01:47)
[2023-04-15] MEDS: MILRINONE 20MG/100ML 100 ML IV SCH ×3 (02:02→18:29)
[2023-04-15 04:22] LABS: Calcium 9.3 mg/dL (8.5-10.1); Potassium 3.6 mmol/L (3.5-5.1)
[2023-04-15 04:25] LABS: BUN/Creatinine Ratio 27.8 (10.0-20.0)
[2023-04-15] MEDS: SODIUM CHLOR 0.9% PF (SALINE LOCK) 10ML VIAL/SYR IV SCH ×3 (05:56→22:11)
[2023-04-15] MEDS: fentaNYL Drip 2500mCg/250mlNS 250 ML IV SCH ×2 (06:15→16:07)
[2023-04-15 07:17] LABS: Base Excess 0.1 mmol/L (-2.0-2.0)
[2023-04-15] MEDS: NOREPINEPHRINE 8 MG/250ML KIT 250 ML IV SCH (07:30)
[2023-04-15] MEDS: POTASSIUM CHL 20MEQ/100ML 100 ML IV SCH ×4 (09:57→23:34)
[2023-04-15] MEDS: CEFEPIME 2GM/50ML NS 50 ML IV SCH ×2 (09:57→22:06)
[2023-04-15] MEDS: CARVEDILOL 3.125 MG TAB PO SCH ×2 (09:58→22:11)
[2023-04-15] MEDS: FAMOTIDINE (10MG/ML) 2ML VL IV SCH ×2 (09:58→22:06)
[2023-04-15] MEDS: APIXABAN 5 MG TAB PO SCH ×2 (09:58→22:07)
[2023-04-15] MEDS ORDERED: DexAMETHasone SOD PHOS 10MG/1ML VIAL INJ IV ONE (11:00)
[2023-04-15] MEDS: DexAMETHasone SOD PHOS 10MG/1ML VIAL INJ IV SCH (11:37)
[2023-04-15] MEDS: FUROSEMIDE INJECTION 100 MG in SODIUM CHL 0.9% 100 ML IV SCH (15:45)
[2023-04-15] MEDS: PHENYLEPHRINE INJ 80 MG in SODIUM CHL 0.9% 242 ML IV SCH ×3 (21:15)
[2023-04-15] MEDS: ATORVASTATIN 20 MG TAB PO SCH (22:07)
[2023-04-16] VITALS (137 sets, daily range): BP systolic 33–204; BP diastolic 12–163; PULSE 61–153; RESP 6–29; TEMP 98–99.8; O2SAT 69–100
[2023-04-16] MEDS ORDERED: DexmedeTOMIDine 4 ML IV ONE ×2 (00:08→05:36)
[2023-04-16] MEDS: MIDAZOLAM DRIP 50 mg/50mL 50 ML IV SCH ×4 (00:30→22:14)
[2023-04-16] MEDS: FUROSEMIDE INJECTION 100 MG in SODIUM CHL 0.9% 100 ML IV SCH ×4 (02:00→16:00)
[2023-04-16] MEDS: MILRINONE 20MG/100ML 100 ML IV SCH ×3 (03:46→18:41)
[2023-04-16 04:45] LABS: Albumin 2.9 g/dL (3.4-5.0); BUN/Creatinine Ratio 30.5 (10.0-20.0); Calcium 9.5 mg/dL (8.5-10.1)
[2023-04-16 04:48] LABS: Bilirubin, Total 0.7 mg/dL (0.2-1.0); Total Protein 7.1 g/dL (6.4-8.2)
[2023-04-16 07:30] LABS: Base Excess 0.9 mmol/L (-2.0-2.0)
[2023-04-16] MEDS: NOREPINEPHRINE 8 MG/250ML KIT 250 ML IV SCH ×2 (07:30→15:50)
[2023-04-16] MEDS: SODIUM CHLOR 0.9% PF (SALINE LOCK) 10ML VIAL/SYR IV SCH ×3 (07:53→22:15)
[2023-04-16] MEDS: CEFEPIME 2GM/50ML NS 50 ML IV SCH ×2 (09:41→22:15)
[2023-04-16] MEDS: FAMOTIDINE (10MG/ML) 2ML VL IV SCH ×2 (09:41→22:14)
[2023-04-16] MEDS: CARVEDILOL 3.125 MG TAB PO SCH ×2 (09:44→22:00)
[2023-04-16] MEDS: APIXABAN 5 MG TAB PO SCH ×2 (09:44→22:00)
[2023-04-16] MEDS: fentaNYL Drip 2500mCg/250mlNS 250 ML IV SCH (12:18)
[2023-04-16] MEDS ORDERED: Jevity 1.2 Cal/Fiber 1 Liter GT SCH (12:30)
[2023-04-16] MEDS: VASOPRESSIN 20 UNITS in SODIUM CHL 0.9% 99 ML IV SCH (15:45)
[2023-04-16] MEDS ORDERED: VASOPRESSIN 20 UNITS in SODIUM CHL 0.9% 99 ML IV SCH (15:45)
[2023-04-16] MEDS: EPINEPHrine HCL 250 ML IV SCH (15:45)
[2023-04-16] MEDS ORDERED: VASOPRESSIN 20 UNIT/ML ONE (15:47)
[2023-04-16] MEDS ORDERED: EPINEPHrine HCL 250 ML IV ONE (15:47)
[2023-04-16] MEDS ORDERED: EPINEPHrine HCL 250 ML IV SCH (16:15)
[2023-04-16 18:51] LABS: Base Excess -1.6 mmol/L (-2.0-2.0)
[2023-04-16 19:17] LABS: Potassium 3.4 mmol/L (3.5-5.1)
[2023-04-16 19:22] LABS: BUN/Creatinine Ratio 26.4 (10.0-20.0); Bilirubin, Total 0.7 mg/dL (0.2-1.0); Total Protein 7.7 g/dL (6.4-8.2)
[2023-04-16] MEDS: ATORVASTATIN 20 MG TAB PO SCH (22:00)
[2023-04-16] MEDS: Pro-Stat SF 30ml Vanilla GT SCH (22:00)
[2023-04-16] MEDS: PHENYLEPHRINE INJ 80 MG in SODIUM CHL 0.9% 242 ML IV SCH (22:35)
[2023-04-17] VITALS (110 sets, daily range): BP systolic 74–150; BP diastolic 41–115; PULSE 59–99; RESP 11–24; TEMP 98.2–100.6; O2SAT 86–100
[2023-04-17] MEDS: POTASSIUM CHL 20MEQ/100ML 100 ML IV SCH ×2 (01:15→03:30)
[2023-04-17] MEDS: FUROSEMIDE INJECTION 100 MG in SODIUM CHL 0.9% 100 ML IV SCH ×3 (02:01→21:01)
[2023-04-17] MEDS: MIDAZOLAM DRIP 50 mg/50mL 50 ML IV SCH ×3 (02:01→10:27)
[2023-04-17] MEDS: MILRINONE 20MG/100ML 100 ML IV SCH ×3 (02:01→17:44)
[2023-04-17] MEDS: VASOPRESSIN 20 UNITS in SODIUM CHL 0.9% 99 ML IV SCH ×2 (03:30→10:28)
[2023-04-17] MEDS: SODIUM CHLOR 0.9% PF (SALINE LOCK) 10ML VIAL/SYR IV SCH ×3 (06:15→21:43)
[2023-04-17] MEDS: fentaNYL Drip 2500mCg/250mlNS 250 ML IV SCH (06:16)
[2023-04-17] MEDS: PHENYLEPHRINE INJ 80 MG in SODIUM CHL 0.9% 242 ML IV SCH (06:53)
[2023-04-17 06:56] LABS: Albumin 2.7 g/dL (3.4-5.0); Calcium 9.1 mg/dL (8.5-10.1); Magnesium 2.7 mg/dL (1.6-2.6); Potassium 3.7 mmol/L (3.5-5.1)
[2023-04-17 06:59] LABS: BUN/Creatinine Ratio 27.1 (10.0-20.0); Basophils # (auto) 0 10 ^3/uL (0-0.2); Bilirubin, Total 0.8 mg/dL (0.2-1.0); Eosinophils # (auto) 0 10 ^3/uL (0-0.8); Eosinophils % (auto) 0.1 % (0.0-7.0); Hemoglobin 15.6 g/dL (13.5-17.5); Total Protein 7.1 g/dL (6.4-8.2)
[2023-04-17 07:02] LABS: Basophils % (auto) 0.1 % (0.0-2.0); Hematocrit 49.3 % (41.0-53.0); Lymphocytes % (auto) 9.1 % (10.0-50.0); Mean Corpuscular Hemoglobin 23.3 pg (28.0-32.0); Mean Corpuscular Hgb Conc. 31.6 g/dL (32.0-36.0); Mean Corpuscular Volume 73.8 fL (80.0-100.0); Monocytes # (auto) 1.6 10 ^3/uL (0-1.3); Neutrophils # (auto) 8.8 10 ^3/uL (1.6-8.6); Neutrophils % (auto) 76.7 % (37.0-80.0); Nucleated Red Blood Cells % 0.1 %; Red Blood Cells 6.68 10^6/uL (4.5-5.90); White Blood Cell 11.5 10^3/uL (4.4-10.8)
[2023-04-17 07:11] LABS: Red Cell Distribution Width 20.9 % (11.8-14.3)
[2023-04-17] MEDS: NOREPINEPHRINE 8 MG/250ML KIT 250 ML IV SCH (07:30)
[2023-04-17] MEDS: CARVEDILOL 3.125 MG TAB PO SCH ×3 (10:00→21:46)
[2023-04-17] MEDS: Pro-Stat SF 30ml Vanilla GT SCH ×2 (10:00→17:46)
[2023-04-17] MEDS: DexAMETHasone SOD PHOS 10MG/1ML VIAL INJ IV SCH (10:27)
[2023-04-17] MEDS: CEFEPIME 2GM/50ML NS 50 ML IV SCH ×2 (10:27→21:43)
[2023-04-17] MEDS: FAMOTIDINE (10MG/ML) 2ML VL IV SCH ×2 (10:27→21:43)
[2023-04-17] MEDS: APIXABAN 5 MG TAB PO SCH ×2 (10:28→21:44)
[2023-04-17] MEDS: EPINEPHrine HCL 250 ML IV SCH (14:20)
[2023-04-17 19:27] LABS: Magnesium 3.1 mg/dL (1.6-2.6); Potassium 3.7 mmol/L (3.5-5.1)
[2023-04-17] MEDS: ATORVASTATIN 20 MG TAB PO SCH (21:43)
[2023-04-18] VITALS (106 sets, daily range): BP systolic 66–200; BP diastolic 27–181; PULSE 58–100; RESP 10–26; TEMP 97.3–100.2; O2SAT 48–100
[2023-04-18] MEDS: VASOPRESSIN 20 UNITS in SODIUM CHL 0.9% 99 ML IV SCH ×3 (00:17→23:20)
[2023-04-18] MEDS: MILRINONE 20MG/100ML 100 ML IV SCH ×3 (03:22→20:18)
[2023-04-18] MEDS: fentaNYL Drip 2500mCg/250mlNS 250 ML IV SCH ×2 (03:56→14:30)
[2023-04-18 04:17] LABS: Basophils # (auto) 0 10 ^3/uL (0-0.2); Eosinophils # (auto) 0 10 ^3/uL (0-0.8); Hemoglobin 15.9 g/dL (13.5-17.5); Lymphocytes # (auto) 0.4 10 ^3/uL (0.4-5.4); Monocytes # (auto) 0.9 10 ^3/uL (0-1.3); Nucleated Red Blood Cells % 0.1 %
[2023-04-18 04:20] LABS: Basophils % (auto) 0.1 % (0.0-2.0); Hematocrit 51.4 % (41.0-53.0); Lymphocytes % (auto) 4.4 % (10.0-50.0); Mean Corpuscular Volume 74.4 fL (80.0-100.0); Monocytes % (auto) 8.5 % (0.0-12.0); Neutrophils # (auto) 8.8 10 ^3/uL (1.6-8.6); Red Blood Cells 6.91 10^6/uL (4.5-5.90); White Blood Cell 10.1 10^3/uL (4.4-10.8)
[2023-04-18 04:41] LABS: Potassium 3.4 mmol/L (3.5-5.1)
[2023-04-18 04:50] LABS: Albumin 2.6 g/dL (3.4-5.0); BUN/Creatinine Ratio 32.9 (10.0-20.0); Bilirubin, Total 1.2 mg/dL (0.2-1.0); Total Protein 7.2 g/dL (6.4-8.2)
[2023-04-18] MEDS: SODIUM CHLOR 0.9% PF (SALINE LOCK) 10ML VIAL/SYR IV SCH ×3 (05:46→22:07)
[2023-04-18] MEDS: PROPOFOL 100 ML IV SCH ×2 (05:58→14:48)
[2023-04-18] MEDS: POTASSIUM CHL 20MEQ/100ML 100 ML IV SCH ×3 (06:26→11:43)
[2023-04-18] MEDS: NOREPINEPHRINE 8 MG/250ML KIT 250 ML IV SCH (07:30)
[2023-04-18 07:47] LABS: Base Excess -1.1 mmol/L (-2.0-2.0)
[2023-04-18] MEDS: FUROSEMIDE INJECTION 100 MG in SODIUM CHL 0.9% 100 ML IV SCH ×2 (09:15→15:50)
[2023-04-18] MEDS: FAMOTIDINE (10MG/ML) 2ML VL IV SCH ×2 (09:16→22:07)
[2023-04-18] MEDS: DexAMETHasone SOD PHOS 10MG/1ML VIAL INJ IV SCH (09:16)
[2023-04-18] MEDS: APIXABAN 5 MG TAB PO SCH ×3 (09:17→22:07)
[2023-04-18] MEDS: CARVEDILOL 3.125 MG TAB PO SCH (09:17)
[2023-04-18] MEDS: Pro-Stat SF 30ml Vanilla GT SCH ×3 (09:19→22:06)
[2023-04-18] MEDS: CEFEPIME 2GM/50ML NS 50 ML IV SCH ×2 (09:20→22:06)
[2023-04-18] MEDS: PHENYLEPHRINE INJ 80 MG in SODIUM CHL 0.9% 242 ML IV SCH ×2 (11:07→21:15)
[2023-04-18] MEDS: EPINEPHrine HCL 250 ML IV SCH (15:45)
[2023-04-18] MEDS: ATORVASTATIN 20 MG TAB PO SCH (22:07)
[2023-04-19] VITALS (104 sets, daily range): BP systolic 73–171; BP diastolic 39–130; PULSE 60–126; RESP 12–25; TEMP 97–99; O2SAT 97–100
[2023-04-19] MEDS: MIDAZOLAM DRIP 50 mg/50mL 50 ML IV SCH (00:16)
[2023-04-19] MEDS: PROPOFOL 100 ML IV SCH ×4 (00:16→23:18)
[2023-04-19] MEDS: FUROSEMIDE INJECTION 100 MG in SODIUM CHL 0.9% 100 ML IV SCH (01:41)
[2023-04-19 04:37] LABS: BUN/Creatinine Ratio 33.6 (10.0-20.0); Calcium 9.4 mg/dL (8.5-10.1); Potassium 3.5 mmol/L (3.5-5.1)
[2023-04-19] MEDS: MILRINONE 20MG/100ML 100 ML IV SCH ×3 (05:36→21:49)
[2023-04-19] MEDS: SODIUM CHLOR 0.9% PF (SALINE LOCK) 10ML VIAL/SYR IV SCH ×3 (05:36→21:54)
[2023-04-19] MEDS: fentaNYL Drip 2500mCg/250mlNS 250 ML IV SCH ×2 (05:37→12:33)
[2023-04-19 06:30] LABS: Basophils # (auto) 0 10 ^3/uL (0-0.2); Basophils % (auto) 0.2 % (0.0-2.0); Eosinophils # (auto) 0 10 ^3/uL (0-0.8); Lymphocytes # (auto) 0.6 10 ^3/uL (0.4-5.4); Mean Corpuscular Hemoglobin 23.3 pg (28.0-32.0); Mean Corpuscular Hgb Conc. 31.4 g/dL (32.0-36.0); Mean Corpuscular Volume 74.1 fL (80.0-100.0); Monocytes # (auto) 0.9 10 ^3/uL (0-1.3); Nucleated Red Blood Cells % 0.1 %
[2023-04-19 06:32] LABS: Hematocrit 50.8 % (41.0-53.0); Lymphocytes % (auto) 5.7 % (10.0-50.0); Monocytes % (auto) 8.4 % (0.0-12.0); Neutrophils # (auto) 8.7 10 ^3/uL (1.6-8.6); Neutrophils % (auto) 85.7 % (37.0-80.0); Red Blood Cells 6.86 10^6/uL (4.5-5.90); White Blood Cell 10.2 10^3/uL (4.4-10.8)
[2023-04-19 06:45] LABS: Red Cell Distribution Width 20.8 % (11.8-14.3)
[2023-04-19] MEDS: NOREPINEPHRINE 8 MG/250ML KIT 250 ML IV SCH (07:30)
[2023-04-19 07:33] LABS: Base Excess 0.1 mmol/L (-2.0-2.0)
[2023-04-19] MEDS: FAMOTIDINE (10MG/ML) 2ML VL IV SCH ×2 (08:57→21:50)
[2023-04-19] MEDS: CEFEPIME 2GM/50ML NS 50 ML IV SCH ×2 (08:57→21:50)
[2023-04-19] MEDS: DexAMETHasone SOD PHOS 10MG/1ML VIAL INJ IV SCH (08:57)
[2023-04-19] MEDS: VASOPRESSIN 20 UNITS in SODIUM CHL 0.9% 99 ML IV SCH ×2 (10:27→21:34)
[2023-04-19] MEDS: APIXABAN 5 MG TAB PO SCH ×2 (10:39→21:50)
[2023-04-19] MEDS: Pro-Stat SF 30ml Vanilla GT SCH ×2 (10:42→21:50)
[2023-04-19] MEDS: FREE WATER GT SCH ×2 (12:28→17:20)
[2023-04-19] MEDS: D5W 5% 1,000 ML IV SCH ×2 (14:26→23:52)
[2023-04-19] MEDS: EPINEPHrine HCL 250 ML IV SCH (15:45)
[2023-04-19 16:21] LABS: Urine Bacteria NONE SEEN /hpf (None Seen); Urine Blood 3+ /uL (Negative); Urine Clarity HAZY (Clear); Urine Color Yellow (Yellow); Urine Mucus FEW (None Seen); Urine Protein, UAD 1+ (Negative); Urine Urobilinogen Normal (Negative); Urine WBC 62 /hpf (0 - 3); Urine pH 5.5 (5.0-8.0)
[2023-04-19 16:43] LABS: Protein, Urine 94.6 mg/dL (0.0-11.9); Urine Protein/Creatinine Ratio 0.9
[2023-04-19] MEDS: PHENYLEPHRINE INJ 80 MG in SODIUM CHL 0.9% 242 ML IV SCH ×2 (17:16→21:15)
[2023-04-19] MEDS: NYSTATIN (MOUTH-THROAT) 500,000 UNITS/5 ML SUSP MT SCH ×2 (17:20→21:49)
[2023-04-19] MEDS: ATORVASTATIN 20 MG TAB PO SCH (21:50)
[2023-04-20] VITALS (108 sets, daily range): BP systolic 72–158; BP diastolic 49–101; PULSE 58–123; RESP 10–24; TEMP 98.1–99.5; O2SAT 80–100
[2023-04-20] MEDS: FREE WATER GT SCH ×2 (00:17→06:16)
[2023-04-20] MEDS: MIDAZOLAM DRIP 50 mg/50mL 50 ML IV SCH (00:30)
[2023-04-20 01:50] LABS: Albumin 2.8 g/dL (3.4-5.0); BUN/Creatinine Ratio 33.9 (10.0-20.0); Calcium 9.4 mg/dL (8.5-10.1); Potassium 3.8 mmol/L (3.5-5.1)
[2023-04-20 02:12] LABS: Bilirubin, Total 0.6 mg/dL (0.2-1.0); Total Protein 7.6 g/dL (6.4-8.2)
[2023-04-20] MEDS: NYSTATIN (MOUTH-THROAT) 500,000 UNITS/5 ML SUSP MT SCH ×4 (06:16→22:20)
[2023-04-20] MEDS: SODIUM CHLOR 0.9% PF (SALINE LOCK) 10ML VIAL/SYR IV SCH ×3 (06:16→22:20)
[2023-04-20] MEDS: MILRINONE 20MG/100ML 100 ML IV SCH ×3 (06:17→20:51)
[2023-04-20] MEDS: NOREPINEPHRINE 8 MG/250ML KIT 250 ML IV SCH (07:30)
[2023-04-20 07:50] LABS: Base Excess -2.2 mmol/L (-2.0-2.0)
[2023-04-20] MEDS ORDERED: DEXTROSE (50%) 50ML SYRG IV PRN (08:00)
[2023-04-20] MEDS: NOREPINEPHRINE BITARTRATE 32 MG in SODIUM CHL 0.9% 218 ML IV SCH ×2 (08:00→11:45)
[2023-04-20 08:39] LABS: Basophils # (auto) 0.1 10 ^3/uL (0-0.2); Eosinophils # (auto) 0 10 ^3/uL (0-0.8); Neutrophils # (auto) 14.6 10 ^3/uL (1.6-8.6)
[2023-04-20] MEDS: VASOPRESSIN 20 UNITS in SODIUM CHL 0.9% 99 ML IV SCH ×2 (08:41→19:48)
[2023-04-20 08:42] LABS: Basophils % (auto) 0.5 % (0.0-2.0); Lymphocytes # (auto) 0.7 10 ^3/uL (0.4-5.4); Lymphocytes % (auto) 3.9 % (10.0-50.0); Mean Corpuscular Hgb Conc. 30.8 g/dL (32.0-36.0); Mean Corpuscular Volume 74.6 fL (80.0-100.0); Monocytes # (auto) 1.6 10 ^3/uL (0-1.3); Monocytes % (auto) 9.5 % (0.0-12.0); Neutrophils % (auto) 86.1 % (37.0-80.0); Nucleated Red Blood Cells % 0.1 %; Red Blood Cells 6.97 10^6/uL (4.5-5.90); Red Cell Distribution Width 21.3 % (11.8-14.3); White Blood Cell 16.9 10^3/uL (4.4-10.8)
[2023-04-20] MEDS: DexAMETHasone SOD PHOS 10MG/1ML VIAL INJ IV SCH (09:32)
[2023-04-20] MEDS: FAMOTIDINE (10MG/ML) 2ML VL IV SCH ×2 (09:32→22:19)
[2023-04-20] MEDS: CEFEPIME 2GM/50ML NS 50 ML IV SCH ×2 (09:33→22:25)
[2023-04-20] MEDS: APIXABAN 5 MG TAB PO SCH ×2 (09:33→22:20)
[2023-04-20] MEDS: Pro-Stat SF 30ml Vanilla GT SCH ×2 (09:35→22:25)
[2023-04-20] MEDS: PROPOFOL 100 ML IV SCH ×3 (09:36→22:21)
[2023-04-20] MEDS: D5W 5% 1,000 ML IV SCH ×3 (09:45→22:21)
[2023-04-20] MEDS: POTASSIUM CHL 20MEQ/100ML 100 ML IV SCH ×2 (11:34→13:15)
[2023-04-20] MEDS: DOPamine 1600MCG/ML D5W 250 ML IV SCH (11:35)
[2023-04-20] MEDS: ACCU-CHEK COMFORT CURVE STRIP VI SCH ×2 (11:35→17:48)
[2023-04-20] MEDS: InsuLIN REG 1unit/0.01ml Soln (100units/ml) SC SCH ×2 (11:41→17:54)
[2023-04-20] MEDS: PHENYLEPHRINE INJ 80 MG in SODIUM CHL 0.9% 242 ML IV SCH ×2 (11:47→22:22)
[2023-04-20] MEDS: EPINEPHrine HCL 250 ML IV SCH (15:45)
[2023-04-20] MEDS: ATORVASTATIN 20 MG TAB PO SCH (22:20)
[2023-04-21] VITALS (109 sets, daily range): BP systolic 83–152; BP diastolic 50–90; PULSE 63–127; RESP 11–26; TEMP 97.9–99.3; O2SAT 50–100
[2023-04-21] MEDS: ACCU-CHEK COMFORT CURVE STRIP VI SCH ×4 (00:04→17:24)
[2023-04-21] MEDS: InsuLIN REG 1unit/0.01ml Soln (100units/ml) SC SCH ×4 (00:04→17:40)
[2023-04-21] MEDS: MIDAZOLAM DRIP 50 mg/50mL 50 ML IV SCH (00:30)
[2023-04-21 04:53] LABS: Basophils # (auto) 0 10 ^3/uL (0-0.2); Basophils % (auto) 0.4 % (0.0-2.0); Eosinophils # (auto) 0.3 10 ^3/uL (0-0.8); Eosinophils % (auto) 2.6 % (0.0-7.0); Hematocrit 53.1 % (41.0-53.0); Hemoglobin 16.2 g/dL (13.5-17.5); Lymphocytes # (auto) 0.6 10 ^3/uL (0.4-5.4); Lymphocytes % (auto) 4.9 % (10.0-50.0); Mean Corpuscular Hemoglobin 23.4 pg (28.0-32.0); Mean Corpuscular Hgb Conc. 30.4 g/dL (32.0-36.0); Mean Corpuscular Volume 77.1 fL (80.0-100.0); Monocytes # (auto) 1.1 10 ^3/uL (0-1.3); Monocytes % (auto) 8.9 % (0.0-12.0); Neutrophils # (auto) 10.2 10 ^3/uL (1.6-8.6); Neutrophils % (auto) 83.2 % (37.0-80.0); Nucleated Red Blood Cells % 0.1 %; Red Blood Cells 6.89 10^6/uL (4.5-5.90); White Blood Cell 12.3 10^3/uL (4.4-10.8)
[2023-04-21 04:54] LABS: Red Cell Distribution Width 21.6 % (11.8-14.3)
[2023-04-21] MEDS: PROPOFOL 100 ML IV SCH ×4 (04:59→19:29)
[2023-04-21] MEDS: MILRINONE 20MG/100ML 100 ML IV SCH ×3 (05:00→21:37)
[2023-04-21] MEDS: NYSTATIN (MOUTH-THROAT) 500,000 UNITS/5 ML SUSP MT SCH ×4 (06:00→21:41)
[2023-04-21] MEDS: SODIUM CHLOR 0.9% PF (SALINE LOCK) 10ML VIAL/SYR IV SCH ×3 (06:06→21:41)
[2023-04-21] MEDS: fentaNYL Drip 2500mCg/250mlNS 250 ML IV SCH (06:07)
[2023-04-21] MEDS: VASOPRESSIN 20 UNITS in SODIUM CHL 0.9% 99 ML IV SCH ×2 (06:55→17:25)
[2023-04-21 07:27] LABS: Albumin 2.4 g/dL (3.4-5.0); Calcium 8.9 mg/dL (8.5-10.1); Potassium 3.4 mmol/L (3.5-5.1)
[2023-04-21] MEDS: D5W 5% 1,000 ML IV SCH (07:27)
[2023-04-21] MEDS: NOREPINEPHRINE 8 MG/250ML KIT 250 ML IV SCH (07:30)
[2023-04-21 07:31] LABS: BUN/Creatinine Ratio 34.1 (10.0-20.0); Bilirubin, Total 0.8 mg/dL (0.2-1.0)
[2023-04-21] MEDS: NOREPINEPHRINE BITARTRATE 32 MG in SODIUM CHL 0.9% 218 ML IV SCH (08:00)
[2023-04-21 08:05] LABS: Base Excess -1.6 mmol/L (-2.0-2.0)
[2023-04-21] MEDS: DexAMETHasone SOD PHOS 10MG/1ML VIAL INJ IV SCH (09:38)
[2023-04-21] MEDS: CEFEPIME 2GM/50ML NS 50 ML IV SCH ×2 (09:38→21:55)
[2023-04-21] MEDS: FAMOTIDINE (10MG/ML) 2ML VL IV SCH ×2 (09:38→21:41)
[2023-04-21] MEDS: APIXABAN 5 MG TAB PO SCH ×2 (09:39→21:55)
[2023-04-21] MEDS: Pro-Stat SF 30ml Vanilla GT SCH ×2 (09:39→22:00)
[2023-04-21] MEDS: DOPamine 1600MCG/ML D5W 250 ML IV SCH ×2 (11:00→17:24)
[2023-04-21] MEDS: SOD CHL 0.45% 1,000 ML IV SCH (12:03)
[2023-04-21] MEDS: POTASSIUM CHL 20MEQ/100ML 100 ML IV SCH ×2 (12:14→14:36)
[2023-04-21] MEDS: EPINEPHrine HCL 250 ML IV SCH (15:45)
[2023-04-21] MEDS: PHENYLEPHRINE INJ 80 MG in SODIUM CHL 0.9% 242 ML IV SCH (21:52)
[2023-04-21] MEDS: ATORVASTATIN 20 MG TAB PO SCH (21:55)
[2023-04-22] VITALS (110 sets, daily range): BP systolic 56–152; BP diastolic 28–107; PULSE 61–122; RESP 7–20; TEMP 97.3–98.4; O2SAT 96–100
[2023-04-22] MEDS: ACCU-CHEK COMFORT CURVE STRIP VI SCH ×4 (00:16→17:35)
[2023-04-22] MEDS: InsuLIN REG 1unit/0.01ml Soln (100units/ml) SC SCH ×4 (00:19→17:40)
[2023-04-22] MEDS: PROPOFOL 100 ML IV SCH ×6 (00:20→19:33)
[2023-04-22] MEDS: MIDAZOLAM DRIP 50 mg/50mL 50 ML IV SCH (00:30)
[2023-04-22] MEDS: SOD CHL 0.45% 1,000 ML IV SCH ×3 (02:20→11:15)
[2023-04-22] MEDS: VASOPRESSIN 20 UNITS in SODIUM CHL 0.9% 99 ML IV SCH ×2 (05:09→14:51)
[2023-04-22] MEDS: MILRINONE 20MG/100ML 100 ML IV SCH ×3 (05:17→19:29)
[2023-04-22] MEDS: SODIUM CHLOR 0.9% PF (SALINE LOCK) 10ML VIAL/SYR IV SCH ×3 (05:28→22:24)
[2023-04-22] MEDS: NYSTATIN (MOUTH-THROAT) 500,000 UNITS/5 ML SUSP MT SCH ×4 (05:28→22:24)
[2023-04-22] MEDS: fentaNYL Drip 2500mCg/250mlNS 250 ML IV SCH ×2 (06:15→15:41)
[2023-04-22] MEDS: NOREPINEPHRINE 8 MG/250ML KIT 250 ML IV SCH (07:30)
[2023-04-22] MEDS: NOREPINEPHRINE BITARTRATE 32 MG in SODIUM CHL 0.9% 218 ML IV SCH (07:33)
[2023-04-22] MEDS: DexAMETHasone SOD PHOS 10MG/1ML VIAL INJ IV SCH (09:04)
[2023-04-22] MEDS: FAMOTIDINE (10MG/ML) 2ML VL IV SCH ×2 (09:04→22:23)
[2023-04-22] MEDS: Pro-Stat SF 30ml Vanilla GT SCH ×2 (09:04→22:25)
[2023-04-22] MEDS: CEFEPIME 2GM/50ML NS 50 ML IV SCH ×2 (09:04→22:23)
[2023-04-22] MEDS: APIXABAN 5 MG TAB PO SCH ×2 (09:04→22:22)
[2023-04-22] MEDS ORDERED: POTASSIUM EFFERVESENT TAB 25 MEQ GT ONE (11:00)
[2023-04-22] MEDS: EPINEPHrine HCL 250 ML IV SCH (14:42)
[2023-04-22] MEDS: PHENYLEPHRINE INJ 80 MG in SODIUM CHL 0.9% 242 ML IV SCH (19:31)
[2023-04-22] MEDS ORDERED: AMIODARONE HCL 200 MG TAB PO SCH (22:00)
[2023-04-22] MEDS: DOPamine 1600MCG/ML D5W 250 ML IV SCH (22:22)
[2023-04-22] MEDS: ATORVASTATIN 20 MG TAB PO SCH (22:30)
[2023-04-23] VITALS (133 sets, daily range): BP systolic 67–143; BP diastolic 24–96; PULSE 66–164; RESP 2–39; TEMP 97–100.6; O2SAT 74–100
[2023-04-23] MEDS: ACCU-CHEK COMFORT CURVE STRIP VI SCH ×4 (00:16→18:07)
[2023-04-23] MEDS: PROPOFOL 100 ML IV SCH ×3 (00:16→08:08)
[2023-04-23] MEDS: InsuLIN REG 1unit/0.01ml Soln (100units/ml) SC SCH ×4 (00:17→18:09)
[2023-04-23] MEDS: MIDAZOLAM DRIP 50 mg/50mL 50 ML IV SCH (00:30)
[2023-04-23] MEDS: VASOPRESSIN 20 UNITS in SODIUM CHL 0.9% 99 ML IV SCH ×2 (03:23→14:30)
[2023-04-23] MEDS: MILRINONE 20MG/100ML 100 ML IV SCH ×3 (03:41→19:58)
[2023-04-23] MEDS: SOD CHL 0.45% 1,000 ML IV SCH ×2 (05:16→20:35)
[2023-04-23] MEDS: SODIUM CHLOR 0.9% PF (SALINE LOCK) 10ML VIAL/SYR IV SCH ×3 (05:45→22:01)
[2023-04-23] MEDS: NYSTATIN (MOUTH-THROAT) 500,000 UNITS/5 ML SUSP MT SCH ×4 (06:00→21:57)
[2023-04-23] MEDS: NOREPINEPHRINE 8 MG/250ML KIT 250 ML IV SCH (07:30)
[2023-04-23 07:58] LABS: Base Excess -3.2 mmol/L (-2.0-2.0)
[2023-04-23] MEDS: NOREPINEPHRINE BITARTRATE 32 MG in SODIUM CHL 0.9% 218 ML IV SCH (08:00)
[2023-04-23] MEDS: Pro-Stat SF 30ml Vanilla GT SCH ×2 (09:30→22:00)
[2023-04-23] MEDS: AMIODARONE 450mg/250ml AE 250 ML IV SCH (09:40)
[2023-04-23] MEDS: APIXABAN 5 MG TAB PO SCH ×2 (10:00→22:00)
[2023-04-23] MEDS ORDERED: LORazepam 2MG/ML-1ML VIAL IV ONE ×3 (10:15→11:15)
[2023-04-23] MEDS ORDERED: LORazepam 2MG/ML-1ML VIAL ONE (10:16)
[2023-04-23] MEDS ORDERED: DIGOXIN (250MCG/ML) 2 ML AMPULE ONE (10:25)
[2023-04-23] MEDS ORDERED: DIGOXIN (250MCG/ML) 2 ML AMPULE IV ONE ×2 (10:30→10:45)
[2023-04-23] MEDS ORDERED: ROCURONIUM 10MG/ML 10ML VIAL IV ONE (10:52)
[2023-04-23] MEDS ORDERED: ETOMIDATE (2MG/ML) 20ML VIAL IV ONE (10:52)
[2023-04-23 11:25] LABS: Base Excess -5.4 mmol/L (-2.0-2.0)
[2023-04-23 11:47] LABS: Basophils # (auto) 0 10 ^3/uL (0-0.2); Basophils % (auto) 0.1 % (0.0-2.0); Eosinophils # (auto) 0.1 10 ^3/uL (0-0.8); Mean Corpuscular Volume 76.7 fL (80.0-100.0); Monocytes # (auto) 1.5 10 ^3/uL (0-1.3); Neutrophils # (auto) 8.8 10 ^3/uL (1.6-8.6)
[2023-04-23 11:49] LABS: Eosinophils % (auto) 1.2 % (0.0-7.0); Hematocrit 55.1 % (41.0-53.0); Hemoglobin 16.5 g/dL (13.5-17.5); Mean Corpuscular Hgb Conc. 29.9 g/dL (32.0-36.0); Monocytes % (auto) 13.4 % (0.0-12.0); Neutrophils % (auto) 76.3 % (37.0-80.0); Nucleated Red Blood Cells % 0.1 %; Red Blood Cells 7.18 10^6/uL (4.5-5.90); White Blood Cell 11.5 10^3/uL (4.4-10.8)
[2023-04-23] MEDS: FAMOTIDINE (10MG/ML) 2ML VL IV SCH ×2 (11:51→21:57)
[2023-04-23] MEDS: DexAMETHasone SOD PHOS 10MG/1ML VIAL INJ IV SCH (11:56)
[2023-04-23] MEDS: CEFEPIME 2GM/50ML NS 50 ML IV SCH ×2 (11:59→21:58)
[2023-04-23 12:12] LABS: Red Cell Distribution Width 21.2 % (11.8-14.3)
[2023-04-23] MEDS ORDERED: EPINEPHrine HCL 0.5 ML NEB NEB ONE (12:45)
[2023-04-23] MEDS: EPINEPHrine HCL 250 ML IV SCH (15:45)
[2023-04-23] MEDS: PHENYLEPHRINE INJ 80 MG in SODIUM CHL 0.9% 242 ML IV SCH (16:01)
[2023-04-23 16:35] LABS: Base Excess -7.6 mmol/L (-2.0-2.0)
[2023-04-23 19:43] LABS: BUN/Creatinine Ratio 26.7 (10.0-20.0); Calcium 8.9 mg/dL (8.5-10.1); Potassium 4.8 mmol/L (3.5-5.1)
[2023-04-23] MEDS: ATORVASTATIN 20 MG TAB PO SCH (22:00)
[2023-04-24] VITALS (100 sets, daily range): BP systolic 98–147; BP diastolic 60–105; PULSE 87–156; RESP 12–44; TEMP 88.9–98.8; O2SAT 92–100
[2023-04-24] MEDS: MIDAZOLAM DRIP 50 mg/50mL 50 ML IV SCH (00:30)
[2023-04-24] MEDS: AMIODARONE 450mg/250ml AE 250 ML IV SCH ×2 (00:34→09:33)
[2023-04-24] MEDS: VASOPRESSIN 20 UNITS in SODIUM CHL 0.9% 99 ML IV SCH ×3 (01:37→21:19)
[2023-04-24 03:33] LABS: Base Excess -6.3 mmol/L (-2.0-2.0)
[2023-04-24 03:39] LABS: BUN/Creatinine Ratio 29.6 (10.0-20.0); Calcium 9.2 mg/dL (8.5-10.1); Phosphorus 2.9 mg/dL (2.5-4.90); Potassium 4.3 mmol/L (3.5-5.1)
[2023-04-24] MEDS: MORPHINE SULFATE INJ 2 MG/ml SYRG IV PRN ×2 (03:58→22:34)
[2023-04-24 03:59] LABS: Basophils # (auto) 0 10 ^3/uL (0-0.2); Eosinophils # (auto) 0 10 ^3/uL (0-0.8); Hematocrit 49.9 % (41.0-53.0)
[2023-04-24 04:01] LABS: Basophils % (auto) 0.1 % (0.0-2.0); Eosinophils % (auto) 0.1 % (0.0-7.0); Hemoglobin 15.6 g/dL (13.5-17.5); Lymphocytes # (auto) 0.5 10 ^3/uL (0.4-5.4); Lymphocytes % (auto) 3.7 % (10.0-50.0); Mean Corpuscular Hemoglobin 23.4 pg (28.0-32.0); Mean Corpuscular Hgb Conc. 31.3 g/dL (32.0-36.0); Mean Corpuscular Volume 74.7 fL (80.0-100.0); Monocytes # (auto) 1.1 10 ^3/uL (0-1.3); Monocytes % (auto) 8.7 % (0.0-12.0); Neutrophils # (auto) 11.1 10 ^3/uL (1.6-8.6); Neutrophils % (auto) 87.4 % (37.0-80.0); Red Blood Cells 6.68 10^6/uL (4.5-5.90); White Blood Cell 12.7 10^3/uL (4.4-10.8)
[2023-04-24 04:02] LABS: Red Cell Distribution Width 20.4 % (11.8-14.3)
[2023-04-24] MEDS ORDERED: SODIUM BICARBONATE 8.4 % INJ 50ML VIAL IV ONE ×2 (05:00→05:13)
[2023-04-24] MEDS ORDERED: FUROSEMIDE INJECTION 10 ML ONE (05:11)
[2023-04-24] MEDS ORDERED: AMIODARONE 450mg/250ml AE 250 ML IV SCH (05:15)
[2023-04-24] MEDS: FUROSEMIDE INJECTION 100 MG in D5W 5% 100 ML IV SCH ×2 (05:29→15:00)
[2023-04-24] MEDS: ACCU-CHEK COMFORT CURVE STRIP VI SCH ×4 (05:31→17:26)
[2023-04-24] MEDS: NYSTATIN (MOUTH-THROAT) 500,000 UNITS/5 ML SUSP MT SCH ×4 (05:31→21:41)
[2023-04-24] MEDS: InsuLIN REG 1unit/0.01ml Soln (100units/ml) SC SCH ×4 (05:31→17:33)
[2023-04-24] MEDS: SODIUM CHLOR 0.9% PF (SALINE LOCK) 10ML VIAL/SYR IV SCH ×3 (05:31→21:42)
[2023-04-24] MEDS: fentaNYL Drip 2500mCg/250mlNS 250 ML IV SCH (05:32)
[2023-04-24] MEDS: LORazepam 2MG/ML-1ML VIAL IV PRN ×2 (05:33→20:47)
[2023-04-24] MEDS: MILRINONE 20MG/100ML 100 ML IV SCH ×2 (05:57→21:15)
[2023-04-24] MEDS: NOREPINEPHRINE 8 MG/250ML KIT 250 ML IV SCH (07:18)
[2023-04-24] MEDS: NOREPINEPHRINE BITARTRATE 32 MG in SODIUM CHL 0.9% 218 ML IV SCH (07:19)
[2023-04-24] MEDS: FAMOTIDINE (10MG/ML) 2ML VL IV SCH ×2 (09:32→21:42)
[2023-04-24] MEDS: DexAMETHasone SOD PHOS 10MG/1ML VIAL INJ IV SCH (09:32)
[2023-04-24] MEDS: Pro-Stat SF 30ml Vanilla GT SCH ×2 (09:36→21:18)
[2023-04-24] MEDS: CEFEPIME 2GM/50ML NS 50 ML IV SCH ×2 (09:36→21:42)
[2023-04-24] MEDS: APIXABAN 5 MG TAB PO SCH ×2 (09:36→21:18)
[2023-04-24] MEDS: SOD CHL 0.45% 1,000 ML IV SCH (13:15)
[2023-04-24] MEDS: EPINEPHrine HCL 250 ML IV SCH (15:45)
[2023-04-24] MEDS: PHENYLEPHRINE INJ 80 MG in SODIUM CHL 0.9% 242 ML IV SCH (21:15)
[2023-04-24] MEDS: ATORVASTATIN 20 MG TAB PO SCH (21:18)
[2023-04-24] MEDS ORDERED: LORazepam 2MG/ML-1ML VIAL IM ONE (23:15)
[2023-04-24 23:55] LABS: Basophils # (auto) 0 10 ^3/uL (0-0.2); Eosinophils # (auto) 0 10 ^3/uL (0-0.8); Mean Corpuscular Volume 75.3 fL (80.0-100.0); Monocytes % (auto) 8.3 % (0.0-12.0); Nucleated Red Blood Cells % 0.1 %
[2023-04-24 23:57] LABS: Basophils % (auto) 0.2 % (0.0-2.0); Eosinophils % (auto) 0.1 % (0.0-7.0); Hematocrit 50.6 % (41.0-53.0); Hemoglobin 15.9 g/dL (13.5-17.5); Lymphocytes # (auto) 0.5 10 ^3/uL (0.4-5.4); Lymphocytes % (auto) 4.1 % (10.0-50.0); Mean Corpuscular Hemoglobin 23.6 pg (28.0-32.0); Mean Corpuscular Hgb Conc. 31.3 g/dL (32.0-36.0); Neutrophils # (auto) 10.9 10 ^3/uL (1.6-8.6); Neutrophils % (auto) 87.3 % (37.0-80.0); Red Blood Cells 6.72 10^6/uL (4.5-5.90); White Blood Cell 12.5 10^3/uL (4.4-10.8)
[2023-04-25] VITALS (97 sets, daily range): BP systolic 97–142; BP diastolic 59–96; PULSE 73–157; RESP 16–42; TEMP 98.2–100.6; O2SAT 88–100
[2023-04-25 00:05] LABS: Red Cell Distribution Width 21.6 % (11.8-14.3)
[2023-04-25 00:18] LABS: Calcium 9.2 mg/dL (8.5-10.1); Potassium 3.8 mmol/L (3.5-5.1)
[2023-04-25 00:20] LABS: Bilirubin, Total 1.2 mg/dL (0.2-1.0); Total Protein 7.4 g/dL (6.4-8.2)
[2023-04-25] MEDS: MIDAZOLAM DRIP 50 mg/50mL 50 ML IV SCH ×2 (00:30→20:39)
[2023-04-25] MEDS: FUROSEMIDE INJECTION 100 MG in D5W 5% 100 ML IV SCH ×3 (00:55→14:46)
[2023-04-25 04:24] LABS: Basophils # (auto) 0 10 ^3/uL (0-0.2); Eosinophils # (auto) 0 10 ^3/uL (0-0.8); Eosinophils % (auto) 0.1 % (0.0-7.0); Mean Corpuscular Hgb Conc. 31.6 g/dL (32.0-36.0)
[2023-04-25 04:27] LABS: BUN/Creatinine Ratio 29.3 (10.0-20.0); Magnesium 2.6 mg/dL (1.6-2.6); Potassium 3.3 mmol/L (3.5-5.1)
[2023-04-25 04:28] LABS: Basophils % (auto) 0.1 % (0.0-2.0); Hematocrit 46.9 % (41.0-53.0); Hemoglobin 14.8 g/dL (13.5-17.5); Lymphocytes # (auto) 0.6 10 ^3/uL (0.4-5.4); Lymphocytes % (auto) 4.3 % (10.0-50.0); Mean Corpuscular Hemoglobin 23.6 pg (28.0-32.0); Mean Corpuscular Volume 74.5 fL (80.0-100.0); Monocytes # (auto) 1.7 10 ^3/uL (0-1.3); Neutrophils # (auto) 11.5 10 ^3/uL (1.6-8.6); Neutrophils % (auto) 83.5 % (37.0-80.0); Nucleated Red Blood Cells % 0.2 %; White Blood Cell 13.7 10^3/uL (4.4-10.8)
[2023-04-25 04:32] LABS: Red Cell Distribution Width 20.7 % (11.8-14.3)
[2023-04-25] MEDS: SOD CHL 0.45% 1,000 ML IV SCH (05:29)
[2023-04-25] MEDS: fentaNYL Drip 2500mCg/250mlNS 250 ML IV SCH (05:30)
[2023-04-25] MEDS: SODIUM CHLOR 0.9% PF (SALINE LOCK) 10ML VIAL/SYR IV SCH ×3 (05:37→21:41)
[2023-04-25] MEDS: InsuLIN REG 1unit/0.01ml Soln (100units/ml) SC SCH ×4 (05:37→18:06)
[2023-04-25] MEDS: ACCU-CHEK COMFORT CURVE STRIP VI SCH ×4 (05:37→18:04)
[2023-04-25] MEDS: MILRINONE 20MG/100ML 100 ML IV SCH ×3 (05:38→21:15)
[2023-04-25] MEDS: NYSTATIN (MOUTH-THROAT) 500,000 UNITS/5 ML SUSP MT SCH ×4 (05:49→20:36)
[2023-04-25] MEDS: POTASSIUM CHL 20MEQ/100ML 100 ML IV SCH ×5 (06:18→19:31)
[2023-04-25] MEDS: NOREPINEPHRINE 8 MG/250ML KIT 250 ML IV SCH (07:30)
[2023-04-25] MEDS: NOREPINEPHRINE BITARTRATE 32 MG in SODIUM CHL 0.9% 218 ML IV SCH (08:00)
[2023-04-25] MEDS: AMIODARONE 450mg/250ml AE 250 ML IV SCH ×3 (08:17→23:13)
[2023-04-25] MEDS: CEFEPIME 2GM/50ML NS 50 ML IV SCH (10:00)
[2023-04-25] MEDS: Pro-Stat SF 30ml Vanilla GT SCH ×2 (10:00→20:33)
[2023-04-25] MEDS: APIXABAN 5 MG TAB PO SCH ×2 (10:00→20:38)
[2023-04-25] MEDS: DexAMETHasone SOD PHOS 10MG/1ML VIAL INJ IV SCH (10:38)
[2023-04-25] MEDS: FAMOTIDINE (10MG/ML) 2ML VL IV SCH ×2 (10:38→21:41)
[2023-04-25] MEDS: VASOPRESSIN 20 UNITS in SODIUM CHL 0.9% 99 ML IV SCH ×2 (10:58→20:38)
[2023-04-25] MEDS: LORazepam 2MG/ML-1ML VIAL IV PRN ×4 (11:58→22:43)
[2023-04-25] MEDS: EPINEPHrine HCL 250 ML IV SCH (15:18)
[2023-04-25 15:34] LABS: Base Excess -1.1 mmol/L (-2.0-2.0)
[2023-04-25] MEDS ORDERED: LORazepam 2MG/ML-1ML VIAL IV PRN (16:00)
[2023-04-25] MEDS: PHENYLEPHRINE INJ 80 MG in SODIUM CHL 0.9% 242 ML IV SCH (20:33)
[2023-04-25] MEDS: ATORVASTATIN 20 MG TAB PO SCH (20:38)
[2023-04-25] MEDS: MORPHINE SULFATE INJ 2 MG/ml SYRG IV PRN (22:35)
[2023-04-26] VITALS (83 sets, daily range): BP systolic 100–149; BP diastolic 62–94; PULSE 66–114; RESP 13–36; TEMP 92.3–98.4; O2SAT 87–100
[2023-04-26] MEDS: FUROSEMIDE INJECTION 100 MG in D5W 5% 100 ML IV SCH ×3 (00:14→16:04)
[2023-04-26] MEDS: ACCU-CHEK COMFORT CURVE STRIP VI SCH ×4 (00:21→18:31)
[2023-04-26] MEDS: InsuLIN REG 1unit/0.01ml Soln (100units/ml) SC SCH ×4 (00:38→18:31)
[2023-04-26] MEDS: LORazepam 2MG/ML-1ML VIAL IV PRN (02:55)
[2023-04-26 04:25] LABS: Basophils # (auto) 0 10 ^3/uL (0-0.2); Basophils % (auto) 0.1 % (0.0-2.0); Eosinophils # (auto) 0 10 ^3/uL (0-0.8); Eosinophils % (auto) 0.1 % (0.0-7.0); Hemoglobin 14.6 g/dL (13.5-17.5); Mean Corpuscular Hgb Conc. 31.4 g/dL (32.0-36.0); Monocytes # (auto) 0.8 10 ^3/uL (0-1.3); Red Blood Cells 6.24 10^6/uL (4.5-5.90)
[2023-04-26 04:29] LABS: Hematocrit 46.5 % (41.0-53.0); Lymphocytes # (auto) 0.5 10 ^3/uL (0.4-5.4); Lymphocytes % (auto) 4.7 % (10.0-50.0); Mean Corpuscular Hemoglobin 23.4 pg (28.0-32.0); Mean Corpuscular Volume 74.5 fL (80.0-100.0); Neutrophils # (auto) 8.8 10 ^3/uL (1.6-8.6); Neutrophils % (auto) 87.1 % (37.0-80.0); Nucleated Red Blood Cells % 0.1 %; White Blood Cell 10.1 10^3/uL (4.4-10.8)
[2023-04-26 04:44] LABS: Potassium 3.3 mmol/L (3.5-5.1)
[2023-04-26 04:52] LABS: BUN/Creatinine Ratio 32.9 (10.0-20.0); Calcium 8.8 mg/dL (8.5-10.1)
[2023-04-26 05:25] LABS: Red Cell Distribution Width 20.9 % (11.8-14.3)
[2023-04-26] MEDS: MILRINONE 20MG/100ML 100 ML IV SCH ×3 (05:46→22:36)
[2023-04-26] MEDS: SODIUM CHLOR 0.9% PF (SALINE LOCK) 10ML VIAL/SYR IV SCH ×3 (05:47→22:49)
[2023-04-26] MEDS: NYSTATIN (MOUTH-THROAT) 500,000 UNITS/5 ML SUSP MT SCH ×4 (05:48→22:43)
[2023-04-26] MEDS: AMIODARONE 450mg/250ml AE 250 ML IV SCH ×2 (07:20→14:22)
[2023-04-26] MEDS: NOREPINEPHRINE BITARTRATE 32 MG in SODIUM CHL 0.9% 218 ML IV SCH (08:00)
[2023-04-26] MEDS: VASOPRESSIN 20 UNITS in SODIUM CHL 0.9% 99 ML IV SCH ×2 (08:07→20:19)
[2023-04-26] MEDS ORDERED: ALBUMIN 5% 250 ML IV ONE ×4 (08:15→09:30)
[2023-04-26 08:36] LABS: Anisocytosis Moderate
[2023-04-26] MEDS: POTASSIUM CHL 20MEQ/100ML 100 ML IV SCH ×4 (09:00→15:05)
[2023-04-26] MEDS: Pro-Stat SF 30ml Vanilla GT SCH ×2 (10:00→20:21)
[2023-04-26] MEDS: APIXABAN 5 MG TAB PO SCH ×2 (10:00→22:42)
[2023-04-26] MEDS: FAMOTIDINE (10MG/ML) 2ML VL IV SCH ×2 (10:22→22:43)
[2023-04-26 15:01] LABS: Platelet Estimate Decreased
[2023-04-26] MEDS: EPINEPHrine HCL 250 ML IV SCH (15:45)
[2023-04-26] MEDS: PHENYLEPHRINE INJ 80 MG in SODIUM CHL 0.9% 242 ML IV SCH (20:21)
[2023-04-26] MEDS: ATORVASTATIN 20 MG TAB PO SCH (22:42)
[2023-04-27] VITALS (102 sets, daily range): BP systolic 91–147; BP diastolic 58–119; PULSE 69–151; RESP 14–32; TEMP 98.1–99.3; O2SAT 93–100
[2023-04-27] MEDS: ACCU-CHEK COMFORT CURVE STRIP VI SCH ×4 (00:03→18:28)
[2023-04-27] MEDS: MIDAZOLAM DRIP 50 mg/50mL 50 ML IV SCH (00:30)
[2023-04-27] MEDS: FUROSEMIDE INJECTION 100 MG in D5W 5% 100 ML IV SCH ×2 (00:51→16:35)
[2023-04-27] MEDS: AMIODARONE 450mg/250ml AE 250 ML IV SCH ×3 (03:45→21:04)
[2023-04-27 03:56] LABS: Basophils # (auto) 0 10 ^3/uL (0-0.2); Basophils % (auto) 0.2 % (0.0-2.0); Eosinophils # (auto) 0.2 10 ^3/uL (0-0.8); Lymphocytes # (auto) 0.8 10 ^3/uL (0.4-5.4); Lymphocytes % (auto) 8.4 % (10.0-50.0); Mean Corpuscular Hemoglobin 23.6 pg (28.0-32.0); Neutrophils # (auto) 7.8 10 ^3/uL (1.6-8.6); Red Blood Cells 6.38 10^6/uL (4.5-5.90); White Blood Cell 9.9 10^3/uL (4.4-10.8)
[2023-04-27 03:58] LABS: Albumin 3.1 g/dL (3.4-5.0); Calcium 8.8 mg/dL (8.5-10.1); Eosinophils % (auto) 2.4 % (0.0-7.0); Hematocrit 47.7 % (41.0-53.0); Mean Corpuscular Hgb Conc. 31.5 g/dL (32.0-36.0); Mean Corpuscular Volume 74.7 fL (80.0-100.0); Monocytes % (auto) 10.3 % (0.0-12.0); Neutrophils % (auto) 78.7 % (37.0-80.0); Nucleated Red Blood Cells % 0.2 %
[2023-04-27 04:01] LABS: BUN/Creatinine Ratio 26.8 (10.0-20.0); Bilirubin, Total 1.4 mg/dL (0.2-1.0); Total Protein 6.8 g/dL (6.4-8.2)
[2023-04-27 04:48] LABS: Red Cell Distribution Width 21.5 % (11.8-14.3)
[2023-04-27 05:56] LABS: Anisocytosis Slight; Hypochromia Slight; Platelet Estimate Decreased
[2023-04-27] MEDS: NYSTATIN (MOUTH-THROAT) 500,000 UNITS/5 ML SUSP MT SCH ×4 (05:56→21:53)
[2023-04-27] MEDS: SODIUM CHLOR 0.9% PF (SALINE LOCK) 10ML VIAL/SYR IV SCH ×3 (05:56→21:53)
[2023-04-27] MEDS: InsuLIN REG 1unit/0.01ml Soln (100units/ml) SC SCH ×4 (05:57→18:00)
[2023-04-27] MEDS: MILRINONE 20MG/100ML 100 ML IV SCH ×3 (07:13→23:47)
[2023-04-27] MEDS: VASOPRESSIN 20 UNITS in SODIUM CHL 0.9% 99 ML IV SCH ×2 (07:26→18:28)
[2023-04-27] MEDS: NOREPINEPHRINE BITARTRATE 32 MG in SODIUM CHL 0.9% 218 ML IV SCH (08:00)
[2023-04-27] MEDS ORDERED: POTASSIUM EFFERVESENT TAB 25 MEQ PO ONE (09:15)
[2023-04-27] MEDS: POTASSIUM CHL 20MEQ/100ML 100 ML IV SCH ×2 (09:42→11:17)
[2023-04-27] MEDS: DOCUSATE SOD 100 MG CAP PO PRN (09:52)
[2023-04-27] MEDS: FAMOTIDINE (10MG/ML) 2ML VL IV SCH ×2 (09:52→21:53)
[2023-04-27] MEDS: APIXABAN 5 MG TAB PO SCH ×2 (09:52→21:52)
[2023-04-27] MEDS: Pro-Stat SF 30ml Vanilla GT SCH ×2 (09:57→21:03)
[2023-04-27 12:28] LABS: Base Excess 6.3 mmol/L (-2.0-2.0)
[2023-04-27] MEDS: ACETYLCYSTEINE 10 %(100MG/ML) SOL 4ML NEB SCH ×2 (13:24→21:54)
[2023-04-27] MEDS: ALBUTEROL SULF 2.5 MG/0.5ML(0.5%) NEB SOLN NEB PRN ×2 (13:24→21:54)
[2023-04-27] MEDS: MAGNESIUM SULFATE 1GM/100ML 100 ML IV SCH ×2 (14:20→15:13)
[2023-04-27] MEDS: EPINEPHrine HCL 250 ML IV SCH (15:13)
[2023-04-27] MEDS: PHENYLEPHRINE INJ 80 MG in SODIUM CHL 0.9% 242 ML IV SCH (21:03)
[2023-04-27] MEDS: ATORVASTATIN 20 MG TAB PO SCH (21:53)
[2023-04-27] MEDS: ONDANSETRON HCL 4 MG/2 ML VIAL IV PRN (21:57)
[2023-04-28] VITALS (97 sets, daily range): BP systolic 91–140; BP diastolic 49–95; PULSE 51–134; RESP 12–26; TEMP 98.4–99.7; O2SAT 91–99
[2023-04-28] MEDS: ACCU-CHEK COMFORT CURVE STRIP VI SCH ×4 (00:22→18:29)
[2023-04-28] MEDS: MIDAZOLAM DRIP 50 mg/50mL 50 ML IV SCH (00:30)
[2023-04-28] MEDS: VASOPRESSIN 20 UNITS in SODIUM CHL 0.9% 99 ML IV SCH ×2 (04:32→16:47)
[2023-04-28] MEDS: FUROSEMIDE INJECTION 100 MG in D5W 5% 100 ML IV SCH (05:00)
[2023-04-28] MEDS: NYSTATIN (MOUTH-THROAT) 500,000 UNITS/5 ML SUSP MT SCH ×4 (05:41→22:28)
[2023-04-28] MEDS: SODIUM CHLOR 0.9% PF (SALINE LOCK) 10ML VIAL/SYR IV SCH ×3 (05:41→22:29)
[2023-04-28] MEDS: InsuLIN REG 1unit/0.01ml Soln (100units/ml) SC SCH ×4 (05:53→18:30)
[2023-04-28] MEDS: ACETYLCYSTEINE 10 %(100MG/ML) SOL 4ML NEB SCH ×3 (06:15→19:26)
[2023-04-28] MEDS: ALBUTEROL SULF 2.5 MG/0.5ML(0.5%) NEB SOLN NEB PRN ×3 (06:15→19:26)
[2023-04-28] MEDS: NOREPINEPHRINE BITARTRATE 32 MG in SODIUM CHL 0.9% 218 ML IV SCH (08:00)
[2023-04-28] MEDS: MILRINONE 20MG/100ML 100 ML IV SCH ×2 (08:18→16:49)
[2023-04-28] MEDS: Pro-Stat SF 30ml Vanilla GT SCH ×2 (10:00→22:00)
[2023-04-28 10:33] LABS: Basophils # (auto) 0 10 ^3/uL (0-0.2); Eosinophils # (auto) 0.2 10 ^3/uL (0-0.8); Monocytes # (auto) 0.9 10 ^3/uL (0-1.3); Neutrophils # (auto) 7.8 10 ^3/uL (1.6-8.6); White Blood Cell 9.8 10^3/uL (4.4-10.8)
[2023-04-28 10:35] LABS: Basophils % (auto) 0.3 % (0.0-2.0); Eosinophils % (auto) 2.2 % (0.0-7.0); Hematocrit 46.9 % (41.0-53.0); Hemoglobin 14.8 g/dL (13.5-17.5); Lymphocytes # (auto) 0.8 10 ^3/uL (0.4-5.4); Lymphocytes % (auto) 8.1 % (10.0-50.0); Mean Corpuscular Hemoglobin 23.5 pg (28.0-32.0); Mean Corpuscular Hgb Conc. 31.6 g/dL (32.0-36.0); Mean Corpuscular Volume 74.5 fL (80.0-100.0); Monocytes % (auto) 9.3 % (0.0-12.0); Neutrophils % (auto) 80.1 % (37.0-80.0); Nucleated Red Blood Cells % 0.1 %; Red Cell Distribution Width 20.7 % (11.8-14.3)
[2023-04-28 10:53] LABS: Potassium 3.3 mmol/L (3.5-5.1)
[2023-04-28 11:03] LABS: Albumin 2.6 g/dL (3.4-5.0); BUN/Creatinine Ratio 17.8 (10.0-20.0); Bilirubin, Total 1.2 mg/dL (0.2-1.0); Calcium 8.6 mg/dL (8.5-10.1); Total Protein 6.5 g/dL (6.4-8.2)
[2023-04-28] MEDS: FAMOTIDINE (10MG/ML) 2ML VL IV SCH ×2 (11:23→22:29)
[2023-04-28] MEDS: POTASSIUM EFFERVESENT TAB 25 MEQ PO SCH (11:23)
[2023-04-28] MEDS: APIXABAN 5 MG TAB PO SCH ×2 (11:24→22:29)
[2023-04-28] MEDS: AMIODARONE 450mg/250ml AE 250 ML IV SCH (11:44)
[2023-04-28] MEDS: EPINEPHrine HCL 250 ML IV SCH (15:45)
[2023-04-28] MEDS ORDERED: POTASSIUM EFFERVESENT TAB 25 MEQ PO ONE (16:15)
[2023-04-28] MEDS: PHENYLEPHRINE INJ 80 MG in SODIUM CHL 0.9% 242 ML IV SCH (21:15)
[2023-04-28] MEDS: ATORVASTATIN 20 MG TAB PO SCH (22:29)
[2023-04-29] VITALS (79 sets, daily range): BP systolic 82–138; BP diastolic 38–80; PULSE 78–109; RESP 11–41; TEMP 98.7–99.4; O2SAT 91–100
[2023-04-29] MEDS: MIDAZOLAM DRIP 50 mg/50mL 50 ML IV SCH (00:21)
[2023-04-29] MEDS: ACCU-CHEK COMFORT CURVE STRIP VI SCH ×4 (00:21→18:26)
[2023-04-29] MEDS: VASOPRESSIN 20 UNITS in SODIUM CHL 0.9% 99 ML IV SCH ×2 (01:26→15:01)
[2023-04-29] MEDS: MILRINONE 20MG/100ML 100 ML IV SCH ×3 (01:26→18:26)
[2023-04-29] MEDS: FUROSEMIDE INJECTION 100 MG in D5W 5% 100 ML IV SCH (02:17)
[2023-04-29 05:21] LABS: Albumin 2.7 g/dL (3.4-5.0); Calcium 8.6 mg/dL (8.5-10.1); Potassium 3.6 mmol/L (3.5-5.1)
[2023-04-29 05:23] LABS: BUN/Creatinine Ratio 20.2 (10.0-20.0)
[2023-04-29 05:34] LABS: Bilirubin, Total 1.3 mg/dL (0.2-1.0); Total Protein 6.3 g/dL (6.4-8.2)
[2023-04-29] MEDS: InsuLIN REG 1unit/0.01ml Soln (100units/ml) SC SCH ×4 (06:00→18:00)
[2023-04-29] MEDS: SODIUM CHLOR 0.9% PF (SALINE LOCK) 10ML VIAL/SYR IV SCH ×3 (06:07→22:09)
[2023-04-29] MEDS: NYSTATIN (MOUTH-THROAT) 500,000 UNITS/5 ML SUSP MT SCH ×4 (06:08→22:09)
[2023-04-29] MEDS: ALBUTEROL SULF 2.5 MG/0.5ML(0.5%) NEB SOLN NEB PRN (06:29)
[2023-04-29] MEDS: AMIODARONE 450mg/250ml AE 250 ML IV SCH (06:29)
[2023-04-29] MEDS: ACETYLCYSTEINE 10 %(100MG/ML) SOL 4ML NEB SCH (06:29)
[2023-04-29] MEDS: NOREPINEPHRINE BITARTRATE 32 MG in SODIUM CHL 0.9% 218 ML IV SCH (08:00)
[2023-04-29] MEDS: Pro-Stat SF 30ml Vanilla GT SCH ×2 (10:00→22:00)
[2023-04-29] MEDS: POTASSIUM EFFERVESENT TAB 25 MEQ PO SCH (11:08)
[2023-04-29] MEDS: FAMOTIDINE (10MG/ML) 2ML VL IV SCH ×2 (11:08→22:09)
[2023-04-29] MEDS: APIXABAN 5 MG TAB PO SCH ×2 (11:08→22:09)
[2023-04-29] MEDS: EPINEPHrine HCL 250 ML IV SCH (15:45)
[2023-04-29] MEDS: PHENYLEPHRINE INJ 80 MG in SODIUM CHL 0.9% 242 ML IV SCH (21:15)
[2023-04-29] MEDS: ATORVASTATIN 20 MG TAB PO SCH (22:09)
[2023-04-29] MEDS: KETOROLAC TROMETH 30 MG/ML 1ML VIAL IV PRN (22:24)
[2023-04-30] VITALS (25 sets, daily range): BP systolic 90–121; BP diastolic 58–84; PULSE 80–106; RESP 13–24; TEMP 98.1–99.6; O2SAT 91–100
[2023-04-30] MEDS: VASOPRESSIN 20 UNITS in SODIUM CHL 0.9% 99 ML IV SCH ×2 (00:05→12:05)
[2023-04-30] MEDS: MIDAZOLAM DRIP 50 mg/50mL 50 ML IV SCH (00:05)
[2023-04-30] MEDS: ACCU-CHEK COMFORT CURVE STRIP VI SCH ×4 (00:25→18:15)
[2023-04-30] MEDS ORDERED: LORazepam 2MG/ML-1ML VIAL ONE (01:10)
[2023-04-30] MEDS: LORazepam 2MG/ML-1ML VIAL IV PRN ×3 (01:13→22:10)
[2023-04-30] MEDS: MILRINONE 20MG/100ML 100 ML IV SCH ×3 (01:29→16:30)
[2023-04-30] MEDS: FUROSEMIDE INJECTION 100 MG in D5W 5% 100 ML IV SCH ×2 (02:58→19:13)
[2023-04-30 04:01] LABS: BUN/Creatinine Ratio 18.8 (10.0-20.0); Calcium 8.6 mg/dL (8.5-10.1); Potassium 3.7 mmol/L (3.5-5.1)
[2023-04-30] MEDS: NYSTATIN (MOUTH-THROAT) 500,000 UNITS/5 ML SUSP MT SCH ×4 (05:38→21:57)
[2023-04-30] MEDS: SODIUM CHLOR 0.9% PF (SALINE LOCK) 10ML VIAL/SYR IV SCH ×3 (05:38→21:57)
[2023-04-30] MEDS: InsuLIN REG 1unit/0.01ml Soln (100units/ml) SC SCH ×4 (05:39→18:24)
[2023-04-30] MEDS: AMIODARONE 450mg/250ml AE 250 ML IV SCH ×2 (07:15→13:07)
[2023-04-30] MEDS: NOREPINEPHRINE BITARTRATE 32 MG in SODIUM CHL 0.9% 218 ML IV SCH (08:00)
[2023-04-30] MEDS: APIXABAN 5 MG TAB PO SCH ×2 (10:51→22:09)
[2023-04-30] MEDS: Pro-Stat SF 30ml Vanilla GT SCH ×2 (10:51→21:58)
[2023-04-30] MEDS: FAMOTIDINE (10MG/ML) 2ML VL IV SCH ×2 (10:51→21:57)
[2023-04-30] MEDS: POTASSIUM EFFERVESENT TAB 25 MEQ PO SCH (10:52)
[2023-04-30] MEDS: EPINEPHrine HCL 250 ML IV SCH (15:45)
[2023-04-30] MEDS ORDERED: HALOPERIDOL LACTATE 5 MG/ML INJ VIAL IM PRN (17:15)
[2023-04-30] MEDS: PHENYLEPHRINE INJ 80 MG in SODIUM CHL 0.9% 242 ML IV SCH (21:15)
[2023-04-30] MEDS: AMIODARONE HCL 200 MG TAB PO SCH (21:57)
[2023-04-30] MEDS: ATORVASTATIN 20 MG TAB PO SCH (21:57)
[2023-05-01] VITALS (46 sets, daily range): BP systolic 99–125; BP diastolic 59–79; PULSE 81–105; RESP 9–25; TEMP 98–98.6; O2SAT 88–100
[2023-05-01] MEDS: VASOPRESSIN 20 UNITS in SODIUM CHL 0.9% 99 ML IV SCH (00:22)
[2023-05-01] MEDS: MIDAZOLAM DRIP 50 mg/50mL 50 ML IV SCH (00:30)
[2023-05-01] MEDS: MILRINONE 20MG/100ML 100 ML IV SCH ×3 (00:46→17:30)
[2023-05-01 04:04] LABS: BUN/Creatinine Ratio 21.6 (10.0-20.0); Calcium 8.1 mg/dL (8.5-10.1); Potassium 3.6 mmol/L (3.5-5.1)
[2023-05-01] MEDS: ALBUTEROL SULF 2.5 MG/0.5ML(0.5%) NEB SOLN NEB PRN ×3 (05:56→13:48)
[2023-05-01] MEDS: InsuLIN REG 1unit/0.01ml Soln (100units/ml) SC SCH ×3 (06:00→11:53)
[2023-05-01] MEDS: NYSTATIN (MOUTH-THROAT) 500,000 UNITS/5 ML SUSP MT SCH ×4 (06:04→22:01)
[2023-05-01] MEDS: ACCU-CHEK COMFORT CURVE STRIP VI SCH ×3 (06:04→11:52)
[2023-05-01] MEDS: SODIUM CHLOR 0.9% PF (SALINE LOCK) 10ML VIAL/SYR IV SCH ×3 (06:04→22:02)
[2023-05-01] MEDS: NOREPINEPHRINE BITARTRATE 32 MG in SODIUM CHL 0.9% 218 ML IV SCH (08:00)
[2023-05-01] MEDS: APIXABAN 5 MG TAB PO SCH ×2 (09:30→22:01)
[2023-05-01] MEDS: FAMOTIDINE (10MG/ML) 2ML VL IV SCH (09:30)
[2023-05-01] MEDS: POTASSIUM EFFERVESENT TAB 25 MEQ PO SCH (09:30)
[2023-05-01] MEDS: AMIODARONE HCL 200 MG TAB PO SCH ×2 (09:30→22:01)
[2023-05-01] MEDS: Pro-Stat SF 30ml Vanilla GT SCH (09:35)
[2023-05-01] MEDS: LORazepam 2MG/ML-1ML VIAL IV PRN (10:52)
[2023-05-01] MEDS: KETOROLAC TROMETH 30 MG/ML 1ML VIAL IV PRN ×2 (12:23→23:37)
[2023-05-01] MEDS: FUROSEMIDE INJECTION 100 MG in D5W 5% 100 ML IV SCH (19:30)
[2023-05-01] MEDS: ATORVASTATIN 20 MG TAB PO SCH (22:01)
[2023-05-02] VITALS (30 sets, daily range): BP systolic 99–126; BP diastolic 57–81; PULSE 82–95; RESP 10–27; TEMP 97.9–98.6; O2SAT 94–100
[2023-05-02] MEDS: MILRINONE 20MG/100ML 100 ML IV SCH ×3 (02:25→18:12)
[2023-05-02 04:18] LABS: Basophils # (auto) 0 10 ^3/uL (0-0.2); Eosinophils # (auto) 0.2 10 ^3/uL (0-0.8); Hemoglobin 12.8 g/dL (13.5-17.5); Neutrophils # (auto) 4.5 10 ^3/uL (1.6-8.6); White Blood Cell 6.2 10^3/uL (4.4-10.8)
[2023-05-02 04:20] LABS: Basophils % (auto) 0.6 % (0.0-2.0); Eosinophils % (auto) 3.5 % (0.0-7.0); Hematocrit 40.7 % (41.0-53.0); Lymphocytes # (auto) 0.7 10 ^3/uL (0.4-5.4); Lymphocytes % (auto) 11.6 % (10.0-50.0); Mean Corpuscular Hemoglobin 23.8 pg (28.0-32.0); Mean Corpuscular Hgb Conc. 31.6 g/dL (32.0-36.0); Mean Corpuscular Volume 75.5 fL (80.0-100.0); Monocytes # (auto) 0.8 10 ^3/uL (0-1.3); Monocytes % (auto) 12.1 % (0.0-12.0); Neutrophils % (auto) 72.2 % (37.0-80.0); Red Blood Cells 5.39 10^6/uL (4.5-5.90)
[2023-05-02 04:29] LABS: Red Cell Distribution Width 21.3 % (11.8-14.3)
[2023-05-02 04:36] LABS: BUN/Creatinine Ratio 19.2 (10.0-20.0); Calcium 8.6 mg/dL (8.5-10.1); Potassium 3.4 mmol/L (3.5-5.1)
[2023-05-02] MEDS: NYSTATIN (MOUTH-THROAT) 500,000 UNITS/5 ML SUSP MT SCH ×4 (06:08→21:04)
[2023-05-02] MEDS: SODIUM CHLOR 0.9% PF (SALINE LOCK) 10ML VIAL/SYR IV SCH ×3 (06:08→21:05)
[2023-05-02] MEDS: AMIODARONE HCL 200 MG TAB PO SCH ×2 (08:27→21:05)
[2023-05-02] MEDS: POTASSIUM EFFERVESENT TAB 25 MEQ PO SCH (08:28)
[2023-05-02] MEDS: APIXABAN 5 MG TAB PO SCH ×2 (08:28→21:05)
[2023-05-02] MEDS ORDERED: BUMETANIDE 2.5mg/10ml (0.25 mg/ml) INJ IV ONE (14:15)
[2023-05-02] MEDS: KETOROLAC TROMETH 30 MG/ML 1ML VIAL IV PRN ×2 (16:39→23:29)
[2023-05-02] MEDS: ATORVASTATIN 20 MG TAB PO SCH (21:05)
[2023-05-02] MEDS: LORazepam 2MG/ML-1ML VIAL IV PRN (21:05)
[2023-05-03] VITALS (10 sets, daily range): BP systolic 112–114; BP diastolic 68–71; PULSE 83–89; RESP 16–18; TEMP 98.4–98.6; O2SAT 95–100
[2023-05-03 05:20] LABS: BUN/Creatinine Ratio 17.7 (10.0-20.0); Calcium 8.4 mg/dL (8.5-10.1); Potassium 4.1 mmol/L (3.5-5.1)
[2023-05-03] MEDS: MILRINONE 20MG/100ML 100 ML IV SCH ×3 (05:32→21:21)
[2023-05-03] MEDS: NYSTATIN (MOUTH-THROAT) 500,000 UNITS/5 ML SUSP MT SCH ×4 (05:43→21:22)
[2023-05-03] MEDS: SODIUM CHLOR 0.9% PF (SALINE LOCK) 10ML VIAL/SYR IV SCH ×3 (05:48→21:22)
[2023-05-03] MEDS: AMIODARONE HCL 200 MG TAB PO SCH ×2 (09:15→21:22)
[2023-05-03] MEDS: APIXABAN 5 MG TAB PO SCH ×2 (09:15→21:21)
[2023-05-03] MEDS: POTASSIUM EFFERVESENT TAB 25 MEQ PO SCH (09:16)
[2023-05-03] MEDS: KETOROLAC TROMETH 30 MG/ML 1ML VIAL IV PRN (20:12)
[2023-05-03] MEDS: ATORVASTATIN 20 MG TAB PO SCH (21:21)
[2023-05-03] MEDS: LORazepam 2MG/ML-1ML VIAL IV PRN (23:12)
[2023-05-04] VITALS (9 sets, daily range): BP systolic 98–114; BP diastolic 47–73; PULSE 78–94; RESP 16–20; TEMP 97.8–98.5; O2SAT 95–100
[2023-05-04] MEDS: MILRINONE 20MG/100ML 100 ML IV SCH ×3 (05:34→23:48)
[2023-05-04] MEDS: NYSTATIN (MOUTH-THROAT) 500,000 UNITS/5 ML SUSP MT SCH ×4 (05:34→21:13)
[2023-05-04] MEDS: SODIUM CHLOR 0.9% PF (SALINE LOCK) 10ML VIAL/SYR IV SCH ×3 (05:34→21:13)
[2023-05-04] MEDS: KETOROLAC TROMETH 30 MG/ML 1ML VIAL IV PRN ×2 (05:41→16:25)
[2023-05-04] MEDS: APIXABAN 5 MG TAB PO SCH ×2 (10:00→21:14)
[2023-05-04] MEDS: POTASSIUM EFFERVESENT TAB 25 MEQ PO SCH (10:00)
[2023-05-04] MEDS: AMIODARONE HCL 200 MG TAB PO SCH ×2 (10:00→21:13)
[2023-05-04] MEDS: ONDANSETRON HCL 4 MG/2 ML VIAL IV PRN (16:25)
[2023-05-04] MEDS: LORazepam 2MG/ML-1ML VIAL IV PRN (21:14)
[2023-05-04] MEDS: ATORVASTATIN 20 MG TAB PO SCH (21:14)
[2023-05-05] VITALS (11 sets, daily range): BP systolic 93–120; BP diastolic 57–75; PULSE 72–106; RESP 18–20; TEMP 97.4–98.1; O2SAT 94–100
[2023-05-05] MEDS: NYSTATIN (MOUTH-THROAT) 500,000 UNITS/5 ML SUSP MT SCH ×4 (06:02→21:21)
[2023-05-05] MEDS: SODIUM CHLOR 0.9% PF (SALINE LOCK) 10ML VIAL/SYR IV SCH ×3 (06:02→21:32)
[2023-05-05] MEDS: MILRINONE 20MG/100ML 100 ML IV SCH ×3 (06:03→22:58)
[2023-05-05] MEDS: APIXABAN 5 MG TAB PO SCH ×2 (10:20→21:21)
[2023-05-05] MEDS: POTASSIUM EFFERVESENT TAB 25 MEQ PO SCH (10:20)
[2023-05-05] MEDS: AMIODARONE HCL 200 MG TAB PO SCH ×2 (10:20→21:22)
[2023-05-05 10:48] LABS: Basophils # (auto) 0 10 ^3/uL (0-0.2); Eosinophils # (auto) 0.2 10 ^3/uL (0-0.8); Lymphocytes # (auto) 0.6 10 ^3/uL (0.4-5.4); Lymphocytes % (auto) 8.8 % (10.0-50.0); Mean Corpuscular Hemoglobin 23.8 pg (28.0-32.0); Monocytes # (auto) 0.7 10 ^3/uL (0-1.3); White Blood Cell 6.5 10^3/uL (4.4-10.8)
[2023-05-05 10:52] LABS: Basophils % (auto) 0.5 % (0.0-2.0); Eosinophils % (auto) 2.9 % (0.0-7.0); Hematocrit 38.8 % (41.0-53.0); Hemoglobin 12.1 g/dL (13.5-17.5); Mean Corpuscular Hgb Conc. 31.3 g/dL (32.0-36.0); Mean Corpuscular Volume 76.1 fL (80.0-100.0); Monocytes % (auto) 10.2 % (0.0-12.0); Neutrophils % (auto) 77.6 % (37.0-80.0); Red Blood Cells 5.09 10^6/uL (4.5-5.90)
[2023-05-05 11:12] LABS: Calcium 8.8 mg/dL (8.5-10.1); Potassium 3.6 mmol/L (3.5-5.1)
[2023-05-05 11:14] LABS: BUN/Creatinine Ratio 20.4 (10.0-20.0)
[2023-05-05] MEDS: ONDANSETRON HCL 4 MG/2 ML VIAL IV PRN (11:37)
[2023-05-05] MEDS: KETOROLAC TROMETH 30 MG/ML 1ML VIAL IV PRN ×2 (11:37→21:24)
[2023-05-05] MEDS: ALBUTEROL SULF 2.5 MG/0.5ML(0.5%) NEB SOLN NEB PRN (19:05)
[2023-05-05] MEDS: ATORVASTATIN 20 MG TAB PO SCH (21:32)
[2023-05-06] VITALS (10 sets, daily range): BP systolic 100–135; BP diastolic 53–85; PULSE 73–102; RESP 16–18; TEMP 98–98.5; O2SAT 96–100
[2023-05-06] MEDS: KETOROLAC TROMETH 30 MG/ML 1ML VIAL IV PRN ×3 (03:50→20:41)
[2023-05-06] MEDS: NYSTATIN (MOUTH-THROAT) 500,000 UNITS/5 ML SUSP MT SCH ×4 (06:34→22:19)
[2023-05-06] MEDS: SODIUM CHLOR 0.9% PF (SALINE LOCK) 10ML VIAL/SYR IV SCH ×3 (06:34→22:19)
[2023-05-06] MEDS: MILRINONE 20MG/100ML 100 ML IV SCH ×2 (06:36→14:37)
[2023-05-06] MEDS: AMIODARONE HCL 200 MG TAB PO SCH ×2 (09:45→22:19)
[2023-05-06] MEDS: POTASSIUM EFFERVESENT TAB 25 MEQ PO SCH (09:45)
[2023-05-06] MEDS: APIXABAN 5 MG TAB PO SCH ×2 (09:45→22:19)
[2023-05-06] MEDS: Ensure HIGH Protein Chocolate 8oz Bottle PO SCH ×2 (13:56→17:44)
[2023-05-06] MEDS: ALBUTEROL SULF 2.5 MG/0.5ML(0.5%) NEB SOLN NEB PRN (19:44)
[2023-05-06] MEDS: ONDANSETRON HCL 4 MG/2 ML VIAL IV PRN (20:41)
[2023-05-06] MEDS: ATORVASTATIN 20 MG TAB PO SCH (22:00)
[2023-05-07] VITALS (10 sets, daily range): BP systolic 109–134; BP diastolic 64–87; PULSE 82–105; RESP 16–18; TEMP 97.5–98.6; O2SAT 94–100
[2023-05-07] MEDS ORDERED: traMADol HCL 50 MG TAB PO ONE (00:15)
[2023-05-07] MEDS: MILRINONE 20MG/100ML 100 ML IV SCH ×3 (00:58→18:12)
[2023-05-07] MEDS: DOCUSATE SOD 100 MG CAP PO PRN (03:05)
[2023-05-07] MEDS: ONDANSETRON HCL 4 MG/2 ML VIAL IV PRN (03:05)
[2023-05-07] MEDS: KETOROLAC TROMETH 30 MG/ML 1ML VIAL IV PRN ×2 (03:05→16:11)
[2023-05-07] MEDS: LORazepam 2MG/ML-1ML VIAL IV PRN (04:09)
[2023-05-07] MEDS: SODIUM CHLOR 0.9% PF (SALINE LOCK) 10ML VIAL/SYR IV SCH ×3 (06:00→21:44)
[2023-05-07] MEDS: NYSTATIN (MOUTH-THROAT) 500,000 UNITS/5 ML SUSP MT SCH ×3 (06:34→18:12)
[2023-05-07] MEDS: Ensure HIGH Protein Chocolate 8oz Bottle PO SCH ×3 (08:00→18:00)
[2023-05-07] MEDS: POTASSIUM EFFERVESENT TAB 25 MEQ PO SCH (11:23)
[2023-05-07] MEDS: APIXABAN 5 MG TAB PO SCH ×2 (11:23→21:44)
[2023-05-07] MEDS: AMIODARONE HCL 200 MG TAB PO SCH ×2 (11:23→21:45)
[2023-05-07] MEDS ORDERED: LACTULOSE 20Gm/30ML SOLN PO PRN (18:15)
[2023-05-07 19:05] LABS: Calcium 9.3 mg/dL (8.5-10.1); Potassium 5.3 mmol/L (3.5-5.1)
[2023-05-07] MEDS: ATORVASTATIN 20 MG TAB PO SCH (21:45)
[2023-05-08] VITALS (10 sets, daily range): BP systolic 102–135; BP diastolic 64–78; PULSE 70–107; RESP 16–22; TEMP 98.6–98.9; O2SAT 94–99
[2023-05-08] MEDS: MILRINONE 20MG/100ML 100 ML IV SCH ×2 (01:58→10:40)
[2023-05-08] MEDS: SODIUM CHLOR 0.9% PF (SALINE LOCK) 10ML VIAL/SYR IV SCH ×3 (06:25→21:20)
[2023-05-08] MEDS: ALBUTEROL SULF 2.5 MG/0.5ML(0.5%) NEB SOLN NEB PRN (07:28)
[2023-05-08] MEDS: Ensure HIGH Protein Chocolate 8oz Bottle PO SCH ×3 (08:09→18:03)
[2023-05-08] MEDS: POTASSIUM EFFERVESENT TAB 25 MEQ PO SCH (10:12)
[2023-05-08] MEDS: APIXABAN 5 MG TAB PO SCH ×2 (10:12→21:20)
[2023-05-08] MEDS: AMIODARONE HCL 200 MG TAB PO SCH ×2 (10:13→11:00)
[2023-05-08] MEDS ORDERED: BUMETANIDE 2.5mg/10ml (0.25 mg/ml) INJ IV ONE (11:00)
[2023-05-08] MEDS ORDERED: KETOROLAC TROMETH 30 MG/ML 1ML VIAL IV ONE (14:00)
[2023-05-08] MEDS ORDERED: HYDROcodone-ACET 10/325MG TAB PO PRN (19:00)
[2023-05-08] MEDS: ATORVASTATIN 20 MG TAB PO SCH (21:20)
[2023-05-09] VITALS (7 sets, daily range): BP systolic 96–132; BP diastolic 60–73; PULSE 85–101; RESP 15–21; TEMP 97.4–98.6; O2SAT 98–100
[2023-05-09] MEDS: SODIUM CHLOR 0.9% PF (SALINE LOCK) 10ML VIAL/SYR IV SCH ×2 (05:02→13:21)
[2023-05-09] MEDS: Ensure HIGH Protein Chocolate 8oz Bottle PO SCH ×3 (08:00→17:32)
[2023-05-09] MEDS ORDERED: BUMETANIDE 1 MG TAB PO SCH (10:00)
[2023-05-09] MEDS: APIXABAN 5 MG TAB PO SCH (11:08)
[2023-05-09] MEDS: AMIODARONE HCL 200 MG TAB PO SCH (11:08)
[2023-05-09] MEDS: POTASSIUM EFFERVESENT TAB 25 MEQ PO SCH (11:09)
[2023-05-09 17:49] LABS: Basophils # (auto) 0 10 ^3/uL (0-0.2); Eosinophils # (auto) 0 10 ^3/uL (0-0.8)
[2023-05-09 17:51] LABS: Basophils % (auto) 0.2 % (0.0-2.0); Eosinophils % (auto) 0.1 % (0.0-7.0); Hematocrit 37.2 % (41.0-53.0); Lymphocytes # (auto) 0.5 10 ^3/uL (0.4-5.4); Lymphocytes % (auto) 2.9 % (10.0-50.0); Mean Corpuscular Hemoglobin 24.2 pg (28.0-32.0); Mean Corpuscular Hgb Conc. 32.2 g/dL (32.0-36.0); Mean Corpuscular Volume 75.2 fL (80.0-100.0); Monocytes # (auto) 1.5 10 ^3/uL (0-1.3); Monocytes % (auto) 9.1 % (0.0-12.0); Neutrophils # (auto) 14.9 10 ^3/uL (1.6-8.6); Neutrophils % (auto) 87.7 % (37.0-80.0); Red Blood Cells 4.95 10^6/uL (4.5-5.90); Red Cell Distribution Width 24.1 % (11.8-14.3)
[2023-05-09 18:06] LABS: BUN/Creatinine Ratio 20.9 (10.0-20.0); Calcium 9.2 mg/dL (8.5-10.1); Potassium 5.4 mmol/L (3.5-5.1)
== END 2023-05-09 20:00 | DRG 207 ==
LOC: ER 20:12 → TELE 22:30 → EDUNIT# 22:30 → ICU WEST 04-11 06:01 → TELE-WESTW 05-02 16:45
PROVIDERS: ADMIT Internal Medicine Cardiovascular Disease; ATTEND Internal Medicine Cardiovascular Disease
PROC: 5A09357 Assistance with Respiratory Ventilation, Less than 24 Consecutive Hours, Continuous Positive Airway Pressure (ICD-10-PCS; 2023-04-10)
PROC: 5A1955Z Respiratory Ventilation, Greater than 96 Consecutive Hours (ICD-10-PCS; principal; 2023-04-11)
PROC: 0BH17EZ Insertion of Endotracheal Airway into Trachea, Via Natural or Artificial Opening (ICD-10-PCS; 2023-04-11)
PROC: 4A00X4Z Measurement of Central Nervous Electrical Activity, External Approach (ICD-10-PCS; 2023-04-18)
PROC: 5A09357 Assistance with Respiratory Ventilation, Less than 24 Consecutive Hours, Continuous Positive Airway Pressure (ICD-10-PCS; 2023-04-23)
PROC: 5A09357 Assistance with Respiratory Ventilation, Less than 24 Consecutive Hours, Continuous Positive Airway Pressure (ICD-10-PCS; 2023-04-24)
PROC: 5A09357 Assistance with Respiratory Ventilation, Less than 24 Consecutive Hours, Continuous Positive Airway Pressure (ICD-10-PCS; 2023-04-25)
PROC: 5A09357 Assistance with Respiratory Ventilation, Less than 24 Consecutive Hours, Continuous Positive Airway Pressure (ICD-10-PCS; 2023-04-26)
PROC: 5A09357 Assistance with Respiratory Ventilation, Less than 24 Consecutive Hours, Continuous Positive Airway Pressure (ICD-10-PCS; 2023-04-27)
DX: J96.01 Acute respiratory failure with hypoxia (principal); I21.4 Non-ST elevation (NSTEMI) myocardial infarction; N17.0 Acute kidney failure with tubular necrosis; G93.41 Metabolic encephalopathy; J18.9 Pneumonia, unspecified organism; I50.23 Acute on chronic systolic (congestive) heart failure; I13.0 Hypertensive heart and chronic kidney disease with heart failure and stage 1 through stage 4 chronic kidney disease, or unspecified chronic kidney disease; I42.0 Dilated cardiomyopathy; J44.1 Chronic obstructive pulmonary disease with (acute) exacerbation; E87.0 Hyperosmolality and hypernatremia; I47.20 Ventricular tachycardia, unspecified; E87.1 Hypo-osmolality and hyponatremia; G93.1 Anoxic brain damage, not elsewhere classified; J44.0 Chronic obstructive pulmonary disease with (acute) lower respiratory infection; R78.81 Bacteremia; E86.1 Hypovolemia; G40.909 Epilepsy, unspecified, not intractable, without status epilepticus; Z95.0 Presence of cardiac pacemaker; F41.9 Anxiety disorder, unspecified; R79.89 Other specified abnormal findings of blood chemistry; E66.9 Obesity, unspecified; I25.5 Ischemic cardiomyopathy; E87.6 Hypokalemia; B95.8 Unspecified staphylococcus as the cause of diseases classified elsewhere; G47.30 Sleep apnea, unspecified; I48.91 Unspecified atrial fibrillation; N18.9 Chronic kidney disease, unspecified; I95.9 Hypotension, unspecified; D17.9 Benign lipomatous neoplasm, unspecified; E78.5 Hyperlipidemia, unspecified; Z79.01 Long term (current) use of anticoagulants; Z68.35 Body mass index [BMI] 35.0-35.9, adult; Z88.8 Allergy status to other drugs, medicaments and biological substances; Z79.899 Other long term (current) drug therapy; Z82.1 Family history of blindness and visual loss; Z82.3 Family history of stroke; Z82.49 Family history of ischemic heart disease and other diseases of the circulatory system; Z83.3 Family history of diabetes mellitus; Z86.73 Personal history of transient ischemic attack (TIA), and cerebral infarction without residual deficits; Z87.891 Personal history of nicotine dependence; Z91.148 Patient's other noncompliance with medication regimen for other reason; Z91.199 Patient's noncompliance with other medical treatment and regimen due to unspecified reason; Z91.119 Patient's noncompliance with dietary regimen due to unspecified reason
CPT/HCPCS: 31500; 36415; 36600; 70450; 71045; 74018; 76775; 80048; 80053; 80061; 80069; 80202; 80320; 81001; 82306; 82553; 82565; 82570; 82805; 83036; 83605; 83735; 83880; 83930; 83935; 83970; 84100; 84132; 84156; 84300; 84484; 85007; 85025; 85027; 85379; 85610; 85730; 86850; 86900; 86901; 87040; 87070; 87077; 87081; 87086; 87186; 87205; 92610; 93005; 93306; 94002; 94003; 94640; 94660; 95819; 96365; 96366; 96367; 96368; 96372; 96374; 96375; 96376; 97110; 97116; 97163; 97530; 99291; A4565; C9113; G0378; G0463; J0153; J0171; J0330; J0692; J0696; J1100; J1642; J1815; J1885; J2250; J2405; J2543; J2704; J3480; J3490; J7060; Q9956

== ENCOUNTER 2023-05-15 22:53 | Inpatient (IN) | payer MEDICARE, MEDICAID ==
[~2023-05-15] VITALS: Ht 172.7 cm; Wt 107.9 kg
[2023-05-16 03:03] LABS: Basophils # (auto) 0.1 10 ^3/uL (0-0.2); Eosinophils # (auto) 0.1 10 ^3/uL (0-0.8); Eosinophils % (auto) 0.3 % (0.0-7.0); Hemoglobin 11.8 g/dL (13.5-17.5); Lymphocytes # (auto) 1.1 10 ^3/uL (0.4-5.4); Lymphocytes % (auto) 6.3 % (10.0-50.0); Monocytes # (auto) 1.3 10 ^3/uL (0-1.3); Monocytes % (auto) 7.7 % (0.0-12.0); Nucleated Red Blood Cells % 0.1 %
[2023-05-16 03:05] LABS: Basophils % (auto) 0.4 % (0.0-2.0); Hematocrit 38.1 % (41.0-53.0); Mean Corpuscular Hemoglobin 23.3 pg (28.0-32.0); Mean Corpuscular Hgb Conc. 31.1 g/dL (32.0-36.0); Mean Corpuscular Volume 75.1 fL (80.0-100.0); Neutrophils # (auto) 14.6 10 ^3/uL (1.6-8.6); Neutrophils % (auto) 85.3 % (37.0-80.0); Red Blood Cells 5.08 10^6/uL (4.5-5.90); White Blood Cell 17.1 10^3/uL (4.4-10.8)
[2023-05-16 03:17] LABS: Red Cell Distribution Width 23.8 % (11.8-14.3)
[2023-05-16 03:24] LABS: Alanine Aminotransferase 238 U/L (7-40); Albumin 3.1 g/dL (3.2-4.8); Alkaline Phosphatase 569 U/L (46-116); Anion Gap 8.2 (5-15); Aspartate Aminotransferase 560 U/L (13-40); BUN/Creatinine Ratio 27.1 (10.0-20.0); Bilirubin, Total 2.8 mg/dL (0.2-1.0); Blood Urea Nitrogen 29 mg/dL (9-23); Calcium 8.5 mg/dL (8.7-10.4); Carbon Dioxide 25.8 mmol/L (20-30); Chloride 100 mmol/L (98-107); Glucose 111 mg/dL (74-106); Lipase 24 U/L (12-53); Sodium 134 mmol/L (136-145); Total Protein 5.9 g/dL (5.7-8.2)
[2023-05-16 03:40] VITALS: PULSE 97; RESP 21; O2SAT 96
[2023-05-16] MEDS ORDERED: ONDANSETRON HCL 4 MG/2 ML VIAL IV ONE (04:00)
[2023-05-16] MEDS ORDERED: LACTATED RINGER'S 1,000 ML IV ONE (04:00)
[2023-05-16] MEDS ORDERED: PIPERACILLIN-TAZOB 3.375GM 100 ML IV ONE (04:00)
[2023-05-16] MEDS ORDERED: ASPirin 325 MG TAB PO ONE (04:00)
[2023-05-16] MEDS ORDERED: MORPHINE SULFATE 4 MG/ML SYR/VIAL IV ONE (04:00)
[2023-05-16] MEDS ORDERED: metroNIDAZOLE 500MG/100ML 100 ML IV ONE (04:00)
[2023-05-16] MEDS ORDERED: IOHEXOL 350 MG/ML 100ML IJ ONE (04:03)
[2023-05-16] MEDS ORDERED: ACETAMINOPHEN 325 MG TAB PO PRN (06:00)
[2023-05-16] MEDS ORDERED: DOCUSATE SOD 100 MG CAP PO PRN (06:00)
[2023-05-16] MEDS ORDERED: hydrALAZINE HCL 20 MG/ML VL IV PRN (06:00)
[2023-05-16 06:38] LABS: Urine Bacteria FEW /hpf (None Seen); Urine Blood 2+ /uL (Negative); Urine Clarity Clear (Clear); Urine Color Yellow (Yellow); Urine Hyaline Cast FEW /lpf (0 - 2); Urine Protein, UAD TRACE (Negative); Urine Specific Gravity 1.011 (1.001-1.035); Urine WBC 1 /hpf (0 - 3)
[2023-05-16] MEDS ORDERED: MORPHINE SULFATE INJ 2 MG/ml SYRG IV PRN (06:45)
[2023-05-16] MEDS ORDERED: NITROGLYCERIN 0.4 MG SL TAB SL PRN (06:45)
[2023-05-16] MEDS: metroNIDAZOLE 500MG/100ML 100 ML IV SCH ×3 (07:13→22:22)
[2023-05-16] MEDS: SODIUM CHLOR 0.9% PF (SALINE LOCK) 10ML VIAL/SYR IV SCH ×3 (07:13→22:22)
[2023-05-16 07:16] LABS: Basophils # (auto) 0 10 ^3/uL (0-0.2); Eosinophils # (auto) 0 10 ^3/uL (0-0.8); Eosinophils % (auto) 0.3 % (0.0-7.0); Hemoglobin 10.9 g/dL (13.5-17.5); Lymphocytes # (auto) 1.1 10 ^3/uL (0.4-5.4); Mean Corpuscular Volume 75.6 fL (80.0-100.0); Monocytes # (auto) 1.3 10 ^3/uL (0-1.3); Monocytes % (auto) 8.1 % (0.0-12.0); Neutrophils # (auto) 13.2 10 ^3/uL (1.6-8.6); Nucleated Red Blood Cells % 0.1 %; White Blood Cell 15.6 10^3/uL (4.4-10.8)
[2023-05-16 07:19] LABS: Basophils % (auto) 0.2 % (0.0-2.0); Hematocrit 35.2 % (41.0-53.0); Lymphocytes % (auto) 7.1 % (10.0-50.0); Mean Corpuscular Hemoglobin 23.5 pg (28.0-32.0); Neutrophils % (auto) 84.3 % (37.0-80.0); Red Blood Cells 4.65 10^6/uL (4.5-5.90)
[2023-05-16 07:26] LABS: Red Cell Distribution Width 23.7 % (11.8-14.3)
[2023-05-16 07:45] VITALS: PULSE 74; RESP 12; O2SAT 99
[2023-05-16 09:12] LABS: Alanine Aminotransferase 197 U/L (7-40); Albumin 3.2 g/dL (3.2-4.8); Alkaline Phosphatase 469 U/L (46-116); Anion Gap 8.6 (5-15); Aspartate Aminotransferase 405 U/L (13-40); BUN/Creatinine Ratio 20.8 (10.0-20.0); Blood Urea Nitrogen 20 mg/dL (9-23); Calcium 8.8 mg/dL (8.5-10.1); Carbon Dioxide 23.4 mmol/L (20-30); Chloride 100 mmol/L (98-107); Glucose 102 mg/dL (74-106); Sodium 132 mmol/L (136-145)
[2023-05-16 09:13] LABS: Bilirubin, Total 1.1 mg/dL (0.2-1.0); Total Protein 6.1 g/dL (5.7-8.2)
[2023-05-16] MEDS: APIXABAN 5 MG TAB PO SCH ×2 (11:13→22:22)
[2023-05-16] MEDS: cefTRIAXone 1GM/50ML D5W 50 ML IV SCH (11:13)
[2023-05-16 20:00] VITALS: PULSE 79; RESP 25; O2SAT 94
[2023-05-16] MEDS: HYDROcodone-ACET 5/325MG TAB PO PRN (20:41)
[2023-05-17] VITALS (8 sets, daily range): BP systolic 103–124; BP diastolic 57–73; PULSE 68–81; RESP 13–22; TEMP 36.2; O2SAT 97–100
[2023-05-17] MEDS ORDERED: LORazepam 2MG/ML-1ML VIAL IV ONE (02:31)
[2023-05-17] MEDS: SODIUM CHLOR 0.9% PF (SALINE LOCK) 10ML VIAL/SYR IV SCH ×3 (05:25→21:03)
[2023-05-17 05:31] LABS: Alanine Aminotransferase 119 U/L (7-40); Albumin 3.2 g/dL (3.2-4.8); Alkaline Phosphatase 360 U/L (46-116); Anion Gap 5.5 (5-15); Aspartate Aminotransferase 146 U/L (13-40); BUN/Creatinine Ratio 20.2 (10.0-20.0); Blood Urea Nitrogen 22 mg/dL (9-23); Calcium 9.1 mg/dL (8.7-10.4); Carbon Dioxide 26.5 mmol/L (20-30); Chloride 102 mmol/L (98-107); Glucose 65 mg/dL (74-106); Potassium 4.9 mmol/L (3.5-5.1); Sodium 134 mmol/L (136-145)
[2023-05-17 05:32] LABS: Bilirubin, Total 0.7 mg/dL (0.2-1.0); Total Protein 6.3 g/dL (5.7-8.2)
[2023-05-17 05:46] LABS: Hemoglobin 11.2 g/dL (13.5-17.5); Mean Corpuscular Hemoglobin 23.5 pg (28.0-32.0)
[2023-05-17 05:49] LABS: Hematocrit 35.7 % (41.0-53.0); Mean Corpuscular Hgb Conc. 31.4 g/dL (32.0-36.0); Mean Corpuscular Volume 74.9 fL (80.0-100.0); Red Blood Cells 4.77 10^6/uL (4.5-5.90); White Blood Cell 13.9 10^3/uL (4.4-10.8)
[2023-05-17 06:00] LABS: Red Cell Distribution Width 22.8 % (11.8-14.3)
[2023-05-17 06:02] LABS: Basophils % (manual) 0 (0.0-2.0); Blast Cells 0; Eosinophils % (manual) 0 (0-7); Metamyelocytes % 0; Myelocytes % 0; Promyelocytes % 0; Reactive Lymphocytes 0
[2023-05-17] MEDS: metroNIDAZOLE 500MG/100ML 100 ML IV SCH ×3 (06:05→21:03)
[2023-05-17] MEDS: MORPHINE SULFATE INJ 2 MG/ml SYRG IV PRN (06:41)
[2023-05-17] MEDS: ONDANSETRON HCL 4 MG/2 ML VIAL IV PRN (06:41)
[2023-05-17] MEDS: APIXABAN 5 MG TAB PO SCH ×2 (08:49→21:06)
[2023-05-17] MEDS: cefTRIAXone 1GM/50ML D5W 50 ML IV SCH (08:49)
[2023-05-17] MEDS: FUROSEMIDE 20 MG/2 ML VIAL IV SCH (08:50)
[2023-05-17 10:19] LABS: Band Neutrophils % (manual) 2; Lymphocytes % (manual) 12 (10.0-50.0); Monocytes % (manual) 7 (0-12)
[2023-05-17 10:20] LABS: Platelet Estimate Adequate
[2023-05-17] MEDS ORDERED: FEBU80TA3 PO (13:50)
[2023-05-17] MEDS ORDERED: ESOM40CA83 PO (13:50)
[2023-05-17] MEDS ORDERED: CLOP75TA70 PO (13:50)
[2023-05-17] MEDS ORDERED: TORS20TA20 PO (13:50)
[2023-05-17] MEDS ORDERED: ALPR0.255 PO (13:50)
[2023-05-17] MEDS ORDERED: AMIO200T13 PO (13:50)
[2023-05-17] MEDS: HYDROcodone-ACET 5/325MG TAB PO PRN (21:07)
[2023-05-18] VITALS (8 sets, daily range): BP systolic 92–111; BP diastolic 60–72; PULSE 60–71; RESP 16–22; TEMP 97.4–98; O2SAT 94–100
[2023-05-18] MEDS: MORPHINE SULFATE INJ 2 MG/ml SYRG IV PRN (02:13)
[2023-05-18] MEDS: HYDROcodone-ACET 5/325MG TAB PO PRN ×3 (04:55→22:32)
[2023-05-18] MEDS: metroNIDAZOLE 500MG/100ML 100 ML IV SCH ×2 (05:02→17:01)
[2023-05-18] MEDS: SODIUM CHLOR 0.9% PF (SALINE LOCK) 10ML VIAL/SYR IV SCH ×3 (05:02→21:31)
[2023-05-18] MEDS: cefTRIAXone 1GM/50ML D5W 50 ML IV SCH (09:13)
[2023-05-18] MEDS: FUROSEMIDE 20 MG/2 ML VIAL IV SCH (09:15)
[2023-05-18] MEDS: APIXABAN 5 MG TAB PO SCH ×3 (09:15→21:30)
[2023-05-19] VITALS (7 sets, daily range): BP systolic 106–130; BP diastolic 60–84; PULSE 66–89; RESP 14–18; TEMP 97.6–98.1; O2SAT 94–100
[2023-05-19] MEDS ORDERED: metroNIDAZOLE 500MG/100ML 100 ML IV SCH
[2023-05-19] MEDS: HYDROcodone-ACET 5/325MG TAB PO PRN ×4 (02:43→22:14)
[2023-05-19] MEDS: metroNIDAZOLE 500MG/100ML 100 ML IV SCH ×3 (05:37→21:49)
[2023-05-19] MEDS: SODIUM CHLOR 0.9% PF (SALINE LOCK) 10ML VIAL/SYR IV SCH ×3 (05:38→21:43)
[2023-05-19] MEDS: cefTRIAXone 1GM/50ML D5W 50 ML IV SCH (08:04)
[2023-05-19] MEDS: ONDANSETRON HCL 4 MG/2 ML VIAL IV PRN (08:09)
[2023-05-19] MEDS: APIXABAN 5 MG TAB PO SCH ×2 (10:00→21:43)
[2023-05-19] MEDS: FUROSEMIDE 20 MG/2 ML VIAL IV SCH (10:02)
[2023-05-19 10:15] LABS: INR 1.51 (0.9-1.15); Partial Thromboplastin Time 42.8 SEC (24.5-34.5); Prothrombin Time 15.4 sec (9.3-11.8)
[2023-05-20] VITALS (7 sets, daily range): BP systolic 109–152; BP diastolic 63–99; PULSE 68–89; RESP 14–20; TEMP 97.4–98.4; O2SAT 96–100
[2023-05-20] MEDS: ONDANSETRON HCL 4 MG/2 ML VIAL IV PRN ×2 (03:06→23:25)
[2023-05-20] MEDS: SODIUM CHLOR 0.9% PF (SALINE LOCK) 10ML VIAL/SYR IV SCH ×3 (06:11→22:21)
[2023-05-20] MEDS: metroNIDAZOLE 500MG/100ML 100 ML IV SCH ×3 (06:11→22:21)
[2023-05-20] MEDS: FUROSEMIDE 20 MG/2 ML VIAL IV SCH (10:48)
[2023-05-20] MEDS: APIXABAN 5 MG TAB PO SCH ×2 (10:48→21:36)
[2023-05-20] MEDS: cefTRIAXone 1GM/50ML D5W 50 ML IV SCH (10:48)
[2023-05-20] MEDS: HYDROcodone-ACET 5/325MG TAB PO PRN (23:25)
[2023-05-21] VITALS (12 sets, daily range): BP systolic 108–131; BP diastolic 73–88; PULSE 67–90; RESP 17–22; TEMP 97.4–98.2; O2SAT 94–100
[2023-05-21] MEDS: ONDANSETRON HCL 4 MG/2 ML VIAL IV PRN ×2 (06:20→22:38)
[2023-05-21] MEDS: SODIUM CHLOR 0.9% PF (SALINE LOCK) 10ML VIAL/SYR IV SCH ×3 (06:26→22:47)
[2023-05-21] MEDS: metroNIDAZOLE 500MG/100ML 100 ML IV SCH ×3 (06:26→22:26)
[2023-05-21 07:00] LABS: Mean Corpuscular Volume 75.9 fL (80.0-100.0)
[2023-05-21 07:05] LABS: Hematocrit 34.3 % (41.0-53.0); Hemoglobin 10.7 g/dL (13.5-17.5); Mean Corpuscular Hemoglobin 23.7 pg (28.0-32.0); Mean Corpuscular Hgb Conc. 31.2 g/dL (32.0-36.0); Red Blood Cells 4.52 10^6/uL (4.5-5.90); White Blood Cell 9.1 10^3/uL (4.4-10.8)
[2023-05-21 07:07] LABS: Red Cell Distribution Width 23.8 % (11.8-14.3)
[2023-05-21 07:08] LABS: Band Neutrophils % (manual) 0; Basophils % (manual) 0 (0.0-2.0); Blast Cells 0; Eosinophils % (manual) 0 (0-7); Promyelocytes % 0; Reactive Lymphocytes 0
[2023-05-21 07:13] LABS: Alanine Aminotransferase 49 U/L (7-40); Alkaline Phosphatase 168 U/L (46-116)
[2023-05-21 07:14] LABS: Anion Gap 5.4 (5-15); Aspartate Aminotransferase 41 U/L (13-40); BUN/Creatinine Ratio 10.5 (10.0-20.0); Bilirubin, Total 0.6 mg/dL (0.2-1.0); Blood Urea Nitrogen 10 mg/dL (9-23); Calcium 8.8 mg/dL (8.7-10.4); Carbon Dioxide 28.6 mmol/L (20-30); Chloride 104 mmol/L (98-107); Glucose 82 mg/dL (74-106); Potassium 3.6 mmol/L (3.5-5.1); Sodium 138 mmol/L (136-145)
[2023-05-21] MEDS: APIXABAN 5 MG TAB PO SCH ×2 (10:00→22:27)
[2023-05-21] MEDS: FUROSEMIDE 20 MG/2 ML VIAL IV SCH (10:06)
[2023-05-21] MEDS: cefTRIAXone 1GM/50ML D5W 50 ML IV SCH (10:06)
[2023-05-21 10:31] LABS: Lymphocytes % (manual) 23 (10.0-50.0); Metamyelocytes % 2; Monocytes % (manual) 6 (0-12); Myelocytes % 5
[2023-05-21 10:32] LABS: Platelet Estimate Adequate
[2023-05-21] MEDS ORDERED: ANGIOMAX 250 MG VIAL IV ONE (13:29)
[2023-05-21] MEDS ORDERED: MIDAZOLAM HCL 2MG/2ML 2ml VIAL (1mg/ml) ONE (13:29)
[2023-05-21] MEDS ORDERED: fentaNYL CITRATE 100 MCG/2 ML VL ONE (13:29)
[2023-05-21] MEDS ORDERED: IOHEXOL 350 MG/ML 100ML IJ ONE (13:29)
[2023-05-21] MEDS ORDERED: SODIUM CHL 0.9% 0 ML ONE (13:29)
[2023-05-21] MEDS ORDERED: LIDOCAINE 2%HCL (LOCAL ANESTH.) INJ 20ML MDV ONE (13:29)
[2023-05-21] MEDS: HYDROcodone-ACET 5/325MG TAB PO PRN (22:24)
[2023-05-22] VITALS (7 sets, daily range): BP systolic 112–126; BP diastolic 46–85; PULSE 72–92; RESP 17–99; TEMP 97.8–98.1; O2SAT 99–100
[2023-05-22] MEDS: metroNIDAZOLE 500MG/100ML 100 ML IV SCH ×3 (06:19→22:11)
[2023-05-22] MEDS: SODIUM CHLOR 0.9% PF (SALINE LOCK) 10ML VIAL/SYR IV SCH ×3 (06:25→22:17)
[2023-05-22] MEDS: FUROSEMIDE 20 MG/2 ML VIAL IV SCH (08:53)
[2023-05-22] MEDS: APIXABAN 5 MG TAB PO SCH ×2 (08:53→22:11)
[2023-05-22] MEDS: cefTRIAXone 1GM/50ML D5W 50 ML IV SCH (08:53)
[2023-05-22] MEDS: HYDROcodone-ACET 5/325MG TAB PO PRN (22:11)
[2023-05-23] VITALS (7 sets, daily range): BP systolic 98–131; BP diastolic 60–85; PULSE 73–90; RESP 16–20; TEMP 97.5–98.1; O2SAT 98–100
[2023-05-23] MEDS: HYDROcodone-ACET 5/325MG TAB PO PRN ×2 (03:15→21:38)
[2023-05-23] MEDS: metroNIDAZOLE 500MG/100ML 100 ML IV SCH ×3 (05:25→21:25)
[2023-05-23] MEDS: SODIUM CHLOR 0.9% PF (SALINE LOCK) 10ML VIAL/SYR IV SCH ×3 (05:25→21:25)
[2023-05-23] MEDS: ONDANSETRON HCL 4 MG/2 ML VIAL IV PRN ×2 (09:00→21:38)
[2023-05-23] MEDS: cefTRIAXone 1GM/50ML D5W 50 ML IV SCH (09:00)
[2023-05-23] MEDS: FUROSEMIDE 20 MG/2 ML VIAL IV SCH (09:00)
[2023-05-23] MEDS: APIXABAN 5 MG TAB PO SCH ×2 (09:01→21:26)
[2023-05-24] VITALS (7 sets, daily range): BP systolic 109–131; BP diastolic 72–90; PULSE 77–94; RESP 14–19; TEMP 97.5–98.2; O2SAT 94–100
[2023-05-24] MEDS: HYDROcodone-ACET 5/325MG TAB PO PRN ×2 (05:38→16:34)
[2023-05-24] MEDS: ONDANSETRON HCL 4 MG/2 ML VIAL IV PRN (05:38)
[2023-05-24] MEDS: SODIUM CHLOR 0.9% PF (SALINE LOCK) 10ML VIAL/SYR IV SCH ×3 (05:38→22:09)
[2023-05-24] MEDS: metroNIDAZOLE 500MG/100ML 100 ML IV SCH ×3 (05:39→22:10)
[2023-05-24] MEDS: FUROSEMIDE 20 MG/2 ML VIAL IV SCH (10:00)
[2023-05-24] MEDS: cefTRIAXone 1GM/50ML D5W 50 ML IV SCH (10:00)
[2023-05-24] MEDS: APIXABAN 5 MG TAB PO SCH ×2 (10:00→22:11)
[2023-05-25] VITALS (7 sets, daily range): BP systolic 106–121; BP diastolic 64–80; PULSE 78–98; RESP 18–20; TEMP 97.5–98.5; O2SAT 93–100
[2023-05-25] MEDS: ONDANSETRON HCL 4 MG/2 ML VIAL IV PRN ×3 (00:06→20:22)
[2023-05-25] MEDS: HYDROcodone-ACET 5/325MG TAB PO PRN ×2 (01:34→15:54)
[2023-05-25] MEDS: metroNIDAZOLE 500MG/100ML 100 ML IV SCH ×3 (05:50→21:46)
[2023-05-25] MEDS: SODIUM CHLOR 0.9% PF (SALINE LOCK) 10ML VIAL/SYR IV SCH ×3 (05:51→21:46)
[2023-05-25] MEDS: cefTRIAXone 1GM/50ML D5W 50 ML IV SCH (09:23)
[2023-05-25] MEDS: FUROSEMIDE 20 MG/2 ML VIAL IV SCH (09:23)
[2023-05-25] MEDS: APIXABAN 5 MG TAB PO SCH ×2 (09:23→21:46)
[2023-05-26] VITALS (7 sets, daily range): BP systolic 108–116; BP diastolic 60–89; PULSE 85–93; RESP 17–21; TEMP 97.6–98.7; O2SAT 90–99
[2023-05-26] MEDS: HYDROcodone-ACET 5/325MG TAB PO PRN ×2 (01:23→13:41)
[2023-05-26] MEDS: MORPHINE SULFATE INJ 2 MG/ml SYRG IV PRN (02:50)
[2023-05-26] MEDS: SODIUM CHLOR 0.9% PF (SALINE LOCK) 10ML VIAL/SYR IV SCH ×2 (06:14→14:05)
[2023-05-26] MEDS: metroNIDAZOLE 500MG/100ML 100 ML IV SCH ×2 (06:15→13:41)
[2023-05-26] MEDS: cefTRIAXone 1GM/50ML D5W 50 ML IV SCH (09:04)
[2023-05-26] MEDS: FUROSEMIDE 20 MG/2 ML VIAL IV SCH (09:05)
[2023-05-26] MEDS: APIXABAN 5 MG TAB PO SCH (09:05)
== END 2023-05-26 17:25 | DRG 871 ==
LOC: EDBD 22:53 → ER 22:58 → TELE 05-16 06:53 → EDUNIT# 05-16 06:53 → TELE-CENTR 05-17 13:21
PROVIDERS: ADMIT Nurse Practitioner Family; ATTEND Internal Medicine Cardiovascular Disease
PROC: 4A023N7 Measurement of Cardiac Sampling and Pressure, Left Heart, Percutaneous Approach (ICD-10-PCS; principal; 2023-05-21)
PROC: B2111ZZ Fluoroscopy of Multiple Coronary Arteries using Low Osmolar Contrast (ICD-10-PCS; 2023-05-21)
PROC: B2151ZZ Fluoroscopy of Left Heart using Low Osmolar Contrast (ICD-10-PCS; 2023-05-21)
DX: A41.9 Sepsis, unspecified organism (principal); I21.4 Non-ST elevation (NSTEMI) myocardial infarction; I50.23 Acute on chronic systolic (congestive) heart failure; J96.21 Acute and chronic respiratory failure with hypoxia; R65.21 Severe sepsis with septic shock; N17.0 Acute kidney failure with tubular necrosis; E87.29 Other acidosis; I42.0 Dilated cardiomyopathy; K80.00 Calculus of gallbladder with acute cholecystitis without obstruction; R74.01 Elevation of levels of liver transaminase levels; R79.89 Other specified abnormal findings of blood chemistry; I16.0 Hypertensive urgency; R74.8 Abnormal levels of other serum enzymes; I11.0 Hypertensive heart disease with heart failure; I25.5 Ischemic cardiomyopathy; G47.30 Sleep apnea, unspecified; E78.5 Hyperlipidemia, unspecified; K82.8 Other specified diseases of gallbladder; E66.01 Morbid (severe) obesity due to excess calories; Z82.1 Family history of blindness and visual loss; Z82.3 Family history of stroke; Z82.49 Family history of ischemic heart disease and other diseases of the circulatory system; Z83.3 Family history of diabetes mellitus; Z86.73 Personal history of transient ischemic attack (TIA), and cerebral infarction without residual deficits; Z87.891 Personal history of nicotine dependence; Z91.148 Patient's other noncompliance with medication regimen for other reason; Z95.810 Presence of automatic (implantable) cardiac defibrillator; Z99.81 Dependence on supplemental oxygen; Z68.36 Body mass index [BMI] 36.0-36.9, adult
CPT/HCPCS: 36415; 71045; 71260; 74177; 76705; 78226; 80053; 81001; 83605; 83690; 83880; 84484; 85007; 85025; 85027; 85610; 85730; 86850; 86900; 86901; 87040; 87081; 93458; 96365; 96368; 96375; 99152; G0378; J0696; J2250; J2405; J2543; J3490

== ENCOUNTER → 2023-06-04 | Outpatient (CLI) | payer MEDICARE, MEDICAID ==
[~2023-06-04] MED LIST changes: +ALPR0.255 PO; +FUROSEMIDE 100 MG/10ML VIAL IV ONE; +FUROSEMIDE 40 MG/4 ML VIAL ONE; +POTASSIUM CHL 10 Meq TABLET PO ONE; +POTASSIUM CHL 20 Meq TABLET PO ONE
[2023-06-04 11:45] VITALS: BP 122/80; PULSE 104; RESP 18; O2SAT 94
[2023-06-04 14:50] VITALS: BP 116/74; PULSE 99; RESP 18; O2SAT 99
== END | disposition home or self-care (01) ==
LOC: Rad HDHVI 11:50
PROVIDERS: ATTEND Internal Medicine Cardiovascular Disease
DX: I51.7 Cardiomegaly (principal); I50.43 Acute on chronic combined systolic (congestive) and diastolic (congestive) heart failure; I42.0 Dilated cardiomyopathy; K80.20 Calculus of gallbladder without cholecystitis without obstruction; N20.0 Calculus of kidney; I70.0 Atherosclerosis of aorta; M51.86 Other intervertebral disc disorders, lumbar region
CPT/HCPCS: 74176; 96374; G0463; J1642; J1940

== ENCOUNTER → 2023-06-17 | Outpatient (CLI) | payer MEDICARE, MEDICAID ==
[2023-06-17] VITALS (11 sets, daily range): BP systolic 93–126; BP diastolic 60–81; PULSE 51–104; RESP 16–18; O2SAT 97
[~2023-06-17] VITALS: Ht 30.5 cm; Wt 0.5 kg
[~2023-06-17] MED LIST changes: -FUROSEMIDE 100 MG/10ML VIAL IV ONE; -FUROSEMIDE 40 MG/4 ML VIAL ONE; +MILRINONE 20MG/100ML 100 ML IV ONE; -POTASSIUM CHL 10 Meq TABLET PO ONE; +POTASSIUM EFFERVESENT TAB 25 MEQ ONE; +POTASSIUM EFFERVESENT TAB 25 MEQ PO ONE
== END | disposition home or self-care (01) ==
LOC: CHF HDHVI 10:35
PROVIDERS: ATTEND Internal Medicine Cardiovascular Disease
DX: I13.0 Hypertensive heart and chronic kidney disease with heart failure and stage 1 through stage 4 chronic kidney disease, or unspecified chronic kidney disease (principal); E11.22 Type 2 diabetes mellitus with diabetic chronic kidney disease; N18.9 Chronic kidney disease, unspecified; I50.43 Acute on chronic combined systolic (congestive) and diastolic (congestive) heart failure; I25.5 Ischemic cardiomyopathy; I25.10 Atherosclerotic heart disease of native coronary artery without angina pectoris; E78.5 Hyperlipidemia, unspecified; E66.01 Morbid (severe) obesity due to excess calories; I25.2 Old myocardial infarction; I48.0 Paroxysmal atrial fibrillation; F41.9 Anxiety disorder, unspecified; G40.909 Epilepsy, unspecified, not intractable, without status epilepticus; Z87.891 Personal history of nicotine dependence; Z86.73 Personal history of transient ischemic attack (TIA), and cerebral infarction without residual deficits; Z88.8 Allergy status to other drugs, medicaments and biological substances; Z68.36 Body mass index [BMI] 36.0-36.9, adult; Z79.01 Long term (current) use of anticoagulants; Z79.899 Other long term (current) drug therapy
CPT/HCPCS: 96365; 96366; G0463; J1642; J2260

== ENCOUNTER → 2023-06-24 | Outpatient (CLI) | payer MEDICARE, MEDICAID ==
[2023-06-24] VITALS (11 sets, daily range): BP systolic 74–117; BP diastolic 51–83; PULSE 49–107; RESP 18; O2SAT 100
[~2023-06-24] MED LIST changes: +ACETAMINOPHEN 500 MG TAB PO ONE; -POTASSIUM CHL 20 Meq TABLET PO ONE; -POTASSIUM EFFERVESENT TAB 25 MEQ ONE; -POTASSIUM EFFERVESENT TAB 25 MEQ PO ONE
== END | disposition home or self-care (01) ==
LOC: CHF HDHVI 09:54
PROVIDERS: ATTEND Internal Medicine Cardiovascular Disease
DX: I13.0 Hypertensive heart and chronic kidney disease with heart failure and stage 1 through stage 4 chronic kidney disease, or unspecified chronic kidney disease (principal); E11.22 Type 2 diabetes mellitus with diabetic chronic kidney disease; N18.4 Chronic kidney disease, stage 4 (severe); I50.43 Acute on chronic combined systolic (congestive) and diastolic (congestive) heart failure; I42.0 Dilated cardiomyopathy; F41.9 Anxiety disorder, unspecified; I25.10 Atherosclerotic heart disease of native coronary artery without angina pectoris; G40.909 Epilepsy, unspecified, not intractable, without status epilepticus; E78.5 Hyperlipidemia, unspecified; J44.9 Chronic obstructive pulmonary disease, unspecified; I25.2 Old myocardial infarction; I48.0 Paroxysmal atrial fibrillation; E66.01 Morbid (severe) obesity due to excess calories; Z68.36 Body mass index [BMI] 36.0-36.9, adult; Z87.891 Personal history of nicotine dependence; Z86.73 Personal history of transient ischemic attack (TIA), and cerebral infarction without residual deficits; Z95.810 Presence of automatic (implantable) cardiac defibrillator; Z79.01 Long term (current) use of anticoagulants; Z88.8 Allergy status to other drugs, medicaments and biological substances; Z79.899 Other long term (current) drug therapy
CPT/HCPCS: 93005; 96365; 96366; G0463; J1642; J2260

== ENCOUNTER → 2023-07-08 | Outpatient (CLI) | payer MEDICARE, MEDICAID ==
[2023-07-08] VITALS (11 sets, daily range): BP systolic 91–113; BP diastolic 54–68; PULSE 47–91; RESP 16; O2SAT 96
[~2023-07-08] MED LIST changes: -ACETAMINOPHEN 500 MG TAB PO ONE; +POTASSIUM CHL 20 Meq TABLET PO ONE
== END | disposition home or self-care (01) ==
LOC: CHF HDHVI 10:03
PROVIDERS: ATTEND Internal Medicine Cardiovascular Disease
DX: I13.0 Hypertensive heart and chronic kidney disease with heart failure and stage 1 through stage 4 chronic kidney disease, or unspecified chronic kidney disease (principal); E11.22 Type 2 diabetes mellitus with diabetic chronic kidney disease; I50.43 Acute on chronic combined systolic (congestive) and diastolic (congestive) heart failure; N18.4 Chronic kidney disease, stage 4 (severe); I42.0 Dilated cardiomyopathy; I25.10 Atherosclerotic heart disease of native coronary artery without angina pectoris; I25.2 Old myocardial infarction; I48.0 Paroxysmal atrial fibrillation; J44.9 Chronic obstructive pulmonary disease, unspecified; E78.5 Hyperlipidemia, unspecified; E66.01 Morbid (severe) obesity due to excess calories; Z68.36 Body mass index [BMI] 36.0-36.9, adult; Z79.01 Long term (current) use of anticoagulants; Z79.899 Other long term (current) drug therapy; Z87.891 Personal history of nicotine dependence; Z95.810 Presence of automatic (implantable) cardiac defibrillator; Z88.8 Allergy status to other drugs, medicaments and biological substances
CPT/HCPCS: 96365; 96366; G0463; J1642; J2260

== ENCOUNTER → 2023-07-16 | Outpatient (CLI) | payer MEDICARE, MEDICAID ==
[2023-07-16] VITALS (12 sets, daily range): BP systolic 92–120; BP diastolic 55–87; PULSE 77–102; RESP 18–78; O2SAT 97
[~2023-07-16] MED LIST changes: +MILRINONE 20MG/100ML 100 ML IV SCH; -POTASSIUM CHL 20 Meq TABLET PO ONE
== END | disposition home or self-care (01) ==
LOC: CHF HDHVI 08:09
PROVIDERS: ATTEND Internal Medicine Cardiovascular Disease
DX: I13.0 Hypertensive heart and chronic kidney disease with heart failure and stage 1 through stage 4 chronic kidney disease, or unspecified chronic kidney disease (principal); E11.22 Type 2 diabetes mellitus with diabetic chronic kidney disease; I50.43 Acute on chronic combined systolic (congestive) and diastolic (congestive) heart failure; N18.4 Chronic kidney disease, stage 4 (severe); I42.0 Dilated cardiomyopathy; R06.01 Orthopnea; I25.10 Atherosclerotic heart disease of native coronary artery without angina pectoris; I25.2 Old myocardial infarction; I48.0 Paroxysmal atrial fibrillation; J44.9 Chronic obstructive pulmonary disease, unspecified; E78.5 Hyperlipidemia, unspecified; F41.9 Anxiety disorder, unspecified; E66.01 Morbid (severe) obesity due to excess calories; Z68.36 Body mass index [BMI] 36.0-36.9, adult; Z87.891 Personal history of nicotine dependence; Z79.01 Long term (current) use of anticoagulants; Z79.899 Other long term (current) drug therapy; Z95.810 Presence of automatic (implantable) cardiac defibrillator; Z86.73 Personal history of transient ischemic attack (TIA), and cerebral infarction without residual deficits; Z88.8 Allergy status to other drugs, medicaments and biological substances
CPT/HCPCS: 96365; 96366; G0463; J1642; J2260

== ENCOUNTER → 2023-07-29 | Outpatient (CLI) | payer MEDICARE, MEDICAID ==
[2023-07-29] VITALS (11 sets, daily range): BP systolic 90–128; BP diastolic 50–76; PULSE 46–100; RESP 18; O2SAT 98
[~2023-07-29] MED LIST changes: +CYANOCOBALAMIN (B-12) 1000 MCG/1 ML VIAL IM ONE; +CYANOCOBALAMIN (B-12) 1000 MCG/1 ML VIAL ONE; -MILRINONE 20MG/100ML 100 ML IV SCH
== END | disposition home or self-care (01) ==
LOC: CHF HDHVI 08:45
PROVIDERS: ATTEND Internal Medicine Cardiovascular Disease
DX: I13.0 Hypertensive heart and chronic kidney disease with heart failure and stage 1 through stage 4 chronic kidney disease, or unspecified chronic kidney disease (principal); E11.22 Type 2 diabetes mellitus with diabetic chronic kidney disease; I50.43 Acute on chronic combined systolic (congestive) and diastolic (congestive) heart failure; N18.4 Chronic kidney disease, stage 4 (severe); I25.5 Ischemic cardiomyopathy; I25.10 Atherosclerotic heart disease of native coronary artery without angina pectoris; I25.2 Old myocardial infarction; I48.0 Paroxysmal atrial fibrillation; E78.5 Hyperlipidemia, unspecified; F41.9 Anxiety disorder, unspecified; E66.01 Morbid (severe) obesity due to excess calories; Z68.36 Body mass index [BMI] 36.0-36.9, adult; Z79.01 Long term (current) use of anticoagulants; Z79.899 Other long term (current) drug therapy; Z87.891 Personal history of nicotine dependence; Z95.810 Presence of automatic (implantable) cardiac defibrillator; Z86.73 Personal history of transient ischemic attack (TIA), and cerebral infarction without residual deficits
CPT/HCPCS: 96365; 96366; 96372; G0463; J1642; J2260; J3420

== ENCOUNTER → 2023-08-05 | Outpatient (CLI) | payer MEDICARE, MEDICAID ==
[2023-08-05] VITALS (11 sets, daily range): BP systolic 89–128; BP diastolic 36–75; PULSE 47–100; RESP 18; O2SAT 98
[~2023-08-05] MED LIST changes: +ACETAMINOPHEN 500 MG TAB PO ONE; -CYANOCOBALAMIN (B-12) 1000 MCG/1 ML VIAL IM ONE; -CYANOCOBALAMIN (B-12) 1000 MCG/1 ML VIAL ONE
== END | disposition home or self-care (01) ==
LOC: CHF HDHVI 08:44
PROVIDERS: ATTEND Internal Medicine Cardiovascular Disease
DX: I13.0 Hypertensive heart and chronic kidney disease with heart failure and stage 1 through stage 4 chronic kidney disease, or unspecified chronic kidney disease (principal); E11.22 Type 2 diabetes mellitus with diabetic chronic kidney disease; I50.43 Acute on chronic combined systolic (congestive) and diastolic (congestive) heart failure; N18.4 Chronic kidney disease, stage 4 (severe); R00.2 Palpitations; I25.5 Ischemic cardiomyopathy; I25.10 Atherosclerotic heart disease of native coronary artery without angina pectoris; I25.2 Old myocardial infarction; I48.0 Paroxysmal atrial fibrillation; J44.9 Chronic obstructive pulmonary disease, unspecified; E78.5 Hyperlipidemia, unspecified; Z79.899 Other long term (current) drug therapy; Z87.891 Personal history of nicotine dependence
CPT/HCPCS: 96365; 96366; G0463; J1642; J2260

== ENCOUNTER → 2023-08-19 | Outpatient (CLI) | payer MEDICARE, MEDICAID ==
[2023-08-19] VITALS (12 sets, daily range): BP systolic 87–132; BP diastolic 45–89; PULSE 47–95; RESP 18; O2SAT 98
[~2023-08-19] MED LIST changes: -ACETAMINOPHEN 500 MG TAB PO ONE
== END | disposition home or self-care (01) ==
LOC: CHF HDHVI 08:51
PROVIDERS: ATTEND Internal Medicine Cardiovascular Disease
DX: I13.0 Hypertensive heart and chronic kidney disease with heart failure and stage 1 through stage 4 chronic kidney disease, or unspecified chronic kidney disease (principal); E11.22 Type 2 diabetes mellitus with diabetic chronic kidney disease; I50.43 Acute on chronic combined systolic (congestive) and diastolic (congestive) heart failure; N18.4 Chronic kidney disease, stage 4 (severe); I48.0 Paroxysmal atrial fibrillation; J44.9 Chronic obstructive pulmonary disease, unspecified; I25.10 Atherosclerotic heart disease of native coronary artery without angina pectoris; I25.2 Old myocardial infarction; E78.5 Hyperlipidemia, unspecified; F41.9 Anxiety disorder, unspecified; Z79.01 Long term (current) use of anticoagulants; Z87.891 Personal history of nicotine dependence; Z95.810 Presence of automatic (implantable) cardiac defibrillator
CPT/HCPCS: 96365; 96366; G0463; J1642; J2260

== ENCOUNTER → 2023-08-25 | Outpatient (CLI) | payer MEDICARE, MEDICAID ==
[~2023-08-25] VITALS: Ht 172.7 cm; Wt 93.0 kg
[2023-08-25] VITALS (12 sets, daily range): BP systolic 91–117; BP diastolic 57–70; PULSE 64–94; RESP 20; O2SAT 94
[~2023-08-25] MED LIST changes: +MAGNESIUM SULFATE 1GM/100ML 100 ML IV ONE; +MILRINONE 20MG/100ML 100 ML IV SCH; +POTASSIUM CHLORIDE 60 MEQ, LIDOCAINE 1% (LOCAL ANESTH.) 6 ML in SODIUM CHL 0.9% 500 ML IV ONE
== END | disposition home or self-care (01) ==
LOC: CHF HDHVI 10:14
PROVIDERS: ATTEND Internal Medicine Cardiovascular Disease
DX: I13.0 Hypertensive heart and chronic kidney disease with heart failure and stage 1 through stage 4 chronic kidney disease, or unspecified chronic kidney disease (principal); E11.22 Type 2 diabetes mellitus with diabetic chronic kidney disease; I50.43 Acute on chronic combined systolic (congestive) and diastolic (congestive) heart failure; N18.4 Chronic kidney disease, stage 4 (severe); I25.10 Atherosclerotic heart disease of native coronary artery without angina pectoris; I25.2 Old myocardial infarction; I42.0 Dilated cardiomyopathy; I48.0 Paroxysmal atrial fibrillation; J44.9 Chronic obstructive pulmonary disease, unspecified; E78.5 Hyperlipidemia, unspecified; F41.9 Anxiety disorder, unspecified; E66.01 Morbid (severe) obesity due to excess calories; Z68.36 Body mass index [BMI] 36.0-36.9, adult; Z79.01 Long term (current) use of anticoagulants; Z87.891 Personal history of nicotine dependence; Z95.810 Presence of automatic (implantable) cardiac defibrillator; Z79.899 Other long term (current) drug therapy; Z86.73 Personal history of transient ischemic attack (TIA), and cerebral infarction without residual deficits
CPT/HCPCS: 93005; 96365; 96366; 96367; G0463; J1642; J2260; J3475

== ENCOUNTER → 2023-08-26 | Outpatient (CLI) | payer MEDICARE, MEDICAID ==
[~2023-08-26] VITALS: Ht 30.5 cm; Wt 0.5 kg
[~2023-08-26] MED LIST changes: +CYANOCOBALAMIN (B-12) 1000 MCG/1 ML VIAL IM ONE; +CYANOCOBALAMIN (B-12) 1000 MCG/1 ML VIAL ONE; -MILRINONE 20MG/100ML 100 ML IV ONE; -MILRINONE 20MG/100ML 100 ML IV SCH; +ONDANSETRON HCL 4 MG/2 ML VIAL IV ONE; +ONDANSETRON HCL 4 MG/2 ML VIAL ONE
[2023-08-26 09:10] VITALS: BP 111/68; PULSE 85; RESP 18; O2SAT 97
[2023-08-26 16:20] VITALS: BP 112/71; PULSE 85; RESP 18; O2SAT 97
== END | disposition home or self-care (01) ==
LOC: CHF HDHVI 09:06
PROVIDERS: ATTEND Internal Medicine Cardiovascular Disease
DX: E87.6 Hypokalemia (principal); E83.42 Hypomagnesemia; I13.0 Hypertensive heart and chronic kidney disease with heart failure and stage 1 through stage 4 chronic kidney disease, or unspecified chronic kidney disease; E11.22 Type 2 diabetes mellitus with diabetic chronic kidney disease; I50.43 Acute on chronic combined systolic (congestive) and diastolic (congestive) heart failure; N18.4 Chronic kidney disease, stage 4 (severe); I25.2 Old myocardial infarction; I25.10 Atherosclerotic heart disease of native coronary artery without angina pectoris; I48.0 Paroxysmal atrial fibrillation; E78.5 Hyperlipidemia, unspecified; F41.9 Anxiety disorder, unspecified; Z79.899 Other long term (current) drug therapy; Z95.810 Presence of automatic (implantable) cardiac defibrillator; Z87.891 Personal history of nicotine dependence
CPT/HCPCS: 96365; 96366; 96367; 96372; 96375; G0463; J1642; J2001; J2405; J3420; J3475; J3480; J7040

== ENCOUNTER → 2023-08-27 | Outpatient (CLI) | payer MEDICARE, MEDICAID ==
[2023-08-27] VITALS (11 sets, daily range): BP systolic 97–125; BP diastolic 42–95; PULSE 81–101; RESP 16; O2SAT 98
[~2023-08-27] VITALS: Ht 30.5 cm; Wt 94.3 kg
[~2023-08-27] MED LIST changes: +BUMETANIDE 1mg/4ml VIAL (0.25mg/ml) ONE; +BUMETANIDE 2.5mg/10ml (0.25 mg/ml) INJ IV ONE; -CYANOCOBALAMIN (B-12) 1000 MCG/1 ML VIAL IM ONE; -CYANOCOBALAMIN (B-12) 1000 MCG/1 ML VIAL ONE; -MAGNESIUM SULFATE 1GM/100ML 100 ML IV ONE; +MILRINONE 20MG/100ML 100 ML IV ONE; +POTASSIUM CHL 20 Meq TABLET PO ONE; -POTASSIUM CHLORIDE 60 MEQ, LIDOCAINE 1% (LOCAL ANESTH.) 6 ML in SODIUM CHL 0.9% 500 ML IV ONE
== END | disposition home or self-care (01) ==
LOC: CHF HDHVI 09:56
PROVIDERS: ATTEND Internal Medicine Cardiovascular Disease
DX: I13.0 Hypertensive heart and chronic kidney disease with heart failure and stage 1 through stage 4 chronic kidney disease, or unspecified chronic kidney disease (principal); E11.22 Type 2 diabetes mellitus with diabetic chronic kidney disease; I50.43 Acute on chronic combined systolic (congestive) and diastolic (congestive) heart failure; N18.4 Chronic kidney disease, stage 4 (severe); R11.0 Nausea; I42.0 Dilated cardiomyopathy; I25.10 Atherosclerotic heart disease of native coronary artery without angina pectoris; I25.2 Old myocardial infarction; I48.0 Paroxysmal atrial fibrillation; E87.6 Hypokalemia; E83.42 Hypomagnesemia; E78.5 Hyperlipidemia, unspecified; F41.9 Anxiety disorder, unspecified; E66.01 Morbid (severe) obesity due to excess calories; Z68.36 Body mass index [BMI] 36.0-36.9, adult; Z79.899 Other long term (current) drug therapy; Z87.891 Personal history of nicotine dependence; Z95.810 Presence of automatic (implantable) cardiac defibrillator
CPT/HCPCS: 96365; 96366; 96375; G0463; J1642; J2260; J2405; J3490

== ENCOUNTER → 2023-08-29 | Outpatient (CLI) | payer MEDICARE, MEDICAID ==
[2023-08-29] VITALS (9 sets, daily range): BP systolic 93–124; BP diastolic 57–70; PULSE 73–83; RESP 18; O2SAT 97
[~2023-08-29] MED LIST changes: -BUMETANIDE 1mg/4ml VIAL (0.25mg/ml) ONE; -BUMETANIDE 2.5mg/10ml (0.25 mg/ml) INJ IV ONE; +MAGNESIUM SULFATE 1GM/100ML 100 ML IV ONE; +MAGNESIUM SULFATE 1GM/100ML 200 ML IV ONE; -ONDANSETRON HCL 4 MG/2 ML VIAL IV ONE; -ONDANSETRON HCL 4 MG/2 ML VIAL ONE; +metOLazone 5 MG TAB ONE; +metOLazone 5 MG TAB PO ONE
== END | disposition home or self-care (01) ==
LOC: CHF HDHVI 10:03
PROVIDERS: ATTEND Internal Medicine Cardiovascular Disease
DX: I13.0 Hypertensive heart and chronic kidney disease with heart failure and stage 1 through stage 4 chronic kidney disease, or unspecified chronic kidney disease (principal); E11.22 Type 2 diabetes mellitus with diabetic chronic kidney disease; I50.43 Acute on chronic combined systolic (congestive) and diastolic (congestive) heart failure; N18.4 Chronic kidney disease, stage 4 (severe); E83.42 Hypomagnesemia; I25.5 Ischemic cardiomyopathy; I25.10 Atherosclerotic heart disease of native coronary artery without angina pectoris; I25.2 Old myocardial infarction; I48.0 Paroxysmal atrial fibrillation; J44.9 Chronic obstructive pulmonary disease, unspecified; E78.5 Hyperlipidemia, unspecified; E87.6 Hypokalemia; E66.01 Morbid (severe) obesity due to excess calories; Z68.36 Body mass index [BMI] 36.0-36.9, adult; Z79.01 Long term (current) use of anticoagulants; Z79.899 Other long term (current) drug therapy; Z87.891 Personal history of nicotine dependence; Z95.810 Presence of automatic (implantable) cardiac defibrillator; Z86.73 Personal history of transient ischemic attack (TIA), and cerebral infarction without residual deficits
CPT/HCPCS: 93005; 96365; 96366; 96367; G0463; J1642; J2260; J3475

== ENCOUNTER → 2023-09-01 | Outpatient (CLI) | payer MEDICARE, MEDICAID ==
[2023-09-01] VITALS (10 sets, daily range): BP systolic 89–126; BP diastolic 43–74; PULSE 73–84; RESP 16–18; O2SAT 97
[~2023-09-01] MED LIST changes: +DONNATAL 5ml ORAL Elix (BELLADONNA ALK-PHENOBARB) ONE; +MAALOX PLUS or MAALOX 30 ML ONE; -MAGNESIUM SULFATE 1GM/100ML 100 ML IV ONE; -MAGNESIUM SULFATE 1GM/100ML 200 ML IV ONE; -POTASSIUM CHL 20 Meq TABLET PO ONE; -metOLazone 5 MG TAB ONE; -metOLazone 5 MG TAB PO ONE
== END | disposition home or self-care (01) ==
LOC: CHF HDHVI 10:44
PROVIDERS: ATTEND Internal Medicine Cardiovascular Disease
DX: I13.0 Hypertensive heart and chronic kidney disease with heart failure and stage 1 through stage 4 chronic kidney disease, or unspecified chronic kidney disease (principal); E11.22 Type 2 diabetes mellitus with diabetic chronic kidney disease; I50.43 Acute on chronic combined systolic (congestive) and diastolic (congestive) heart failure; N18.4 Chronic kidney disease, stage 4 (severe); I25.10 Atherosclerotic heart disease of native coronary artery without angina pectoris; I48.0 Paroxysmal atrial fibrillation; E78.5 Hyperlipidemia, unspecified; Z79.01 Long term (current) use of anticoagulants; Z79.899 Other long term (current) drug therapy; Z87.891 Personal history of nicotine dependence; Z95.810 Presence of automatic (implantable) cardiac defibrillator; Z86.73 Personal history of transient ischemic attack (TIA), and cerebral infarction without residual deficits
CPT/HCPCS: 96365; 96366; G0463; J1642; J2260

== ENCOUNTER → 2023-09-03 | Outpatient (CLI) | payer MEDICARE, MEDICAID ==
[2023-09-03] VITALS (12 sets, daily range): BP systolic 98–129; BP diastolic 48–75; PULSE 74–87; RESP 16; O2SAT 96
[~2023-09-03] MED LIST changes: -DONNATAL 5ml ORAL Elix (BELLADONNA ALK-PHENOBARB) ONE; -MAALOX PLUS or MAALOX 30 ML ONE
== END | disposition home or self-care (01) ==
LOC: CHF HDHVI 09:23
PROVIDERS: ATTEND Internal Medicine Cardiovascular Disease
DX: I13.0 Hypertensive heart and chronic kidney disease with heart failure and stage 1 through stage 4 chronic kidney disease, or unspecified chronic kidney disease (principal); E11.22 Type 2 diabetes mellitus with diabetic chronic kidney disease; I50.43 Acute on chronic combined systolic (congestive) and diastolic (congestive) heart failure; N18.4 Chronic kidney disease, stage 4 (severe); I25.5 Ischemic cardiomyopathy; I25.10 Atherosclerotic heart disease of native coronary artery without angina pectoris; I25.2 Old myocardial infarction; R00.2 Palpitations; I48.0 Paroxysmal atrial fibrillation; J44.9 Chronic obstructive pulmonary disease, unspecified; E78.5 Hyperlipidemia, unspecified; E83.42 Hypomagnesemia; F41.9 Anxiety disorder, unspecified; E66.01 Morbid (severe) obesity due to excess calories; Z68.36 Body mass index [BMI] 36.0-36.9, adult; Z79.01 Long term (current) use of anticoagulants; Z79.899 Other long term (current) drug therapy; Z87.891 Personal history of nicotine dependence; Z95.810 Presence of automatic (implantable) cardiac defibrillator; Z86.73 Personal history of transient ischemic attack (TIA), and cerebral infarction without residual deficits
CPT/HCPCS: 94618; 96365; 96366; G0463; J1642; J2260

== ENCOUNTER → 2023-09-08 | Outpatient (CLI) | payer MEDICARE, MEDICAID ==
[2023-09-08] VITALS (12 sets, daily range): BP systolic 92–125; BP diastolic 44–64; PULSE 69–85; RESP 18; O2SAT 98
== END | disposition home or self-care (01) ==
LOC: CHF HDHVI 09:03
PROVIDERS: ATTEND Internal Medicine Cardiovascular Disease
DX: I13.0 Hypertensive heart and chronic kidney disease with heart failure and stage 1 through stage 4 chronic kidney disease, or unspecified chronic kidney disease (principal); E11.22 Type 2 diabetes mellitus with diabetic chronic kidney disease; I50.43 Acute on chronic combined systolic (congestive) and diastolic (congestive) heart failure; N18.4 Chronic kidney disease, stage 4 (severe); I25.10 Atherosclerotic heart disease of native coronary artery without angina pectoris; I42.0 Dilated cardiomyopathy; I48.0 Paroxysmal atrial fibrillation; I25.2 Old myocardial infarction; E78.5 Hyperlipidemia, unspecified; E83.42 Hypomagnesemia; E87.6 Hypokalemia; F41.9 Anxiety disorder, unspecified; E66.01 Morbid (severe) obesity due to excess calories; Z68.36 Body mass index [BMI] 36.0-36.9, adult; Z79.01 Long term (current) use of anticoagulants; Z79.899 Other long term (current) drug therapy; Z87.891 Personal history of nicotine dependence; Z95.810 Presence of automatic (implantable) cardiac defibrillator; Z86.73 Personal history of transient ischemic attack (TIA), and cerebral infarction without residual deficits
CPT/HCPCS: 96365; 96366; G0463; J1642; J2260

== ENCOUNTER → 2023-09-10 | Outpatient (CLI) | payer MEDICARE, MEDICAID ==
[2023-09-10] VITALS (10 sets, daily range): BP systolic 91–112; BP diastolic 56–68; PULSE 71–80; RESP 18; O2SAT 95
== END | disposition home or self-care (01) ==
LOC: CHF HDHVI 09:05
PROVIDERS: ATTEND Internal Medicine Cardiovascular Disease
DX: I13.0 Hypertensive heart and chronic kidney disease with heart failure and stage 1 through stage 4 chronic kidney disease, or unspecified chronic kidney disease (principal); E11.22 Type 2 diabetes mellitus with diabetic chronic kidney disease; I50.43 Acute on chronic combined systolic (congestive) and diastolic (congestive) heart failure; N18.4 Chronic kidney disease, stage 4 (severe); I42.0 Dilated cardiomyopathy; I25.5 Ischemic cardiomyopathy; I25.10 Atherosclerotic heart disease of native coronary artery without angina pectoris; I25.2 Old myocardial infarction; I48.0 Paroxysmal atrial fibrillation; J44.9 Chronic obstructive pulmonary disease, unspecified; E78.5 Hyperlipidemia, unspecified; E83.42 Hypomagnesemia; F41.9 Anxiety disorder, unspecified; Z79.01 Long term (current) use of anticoagulants; Z79.899 Other long term (current) drug therapy; Z87.891 Personal history of nicotine dependence; Z95.810 Presence of automatic (implantable) cardiac defibrillator; Z86.73 Personal history of transient ischemic attack (TIA), and cerebral infarction without residual deficits; Z88.8 Allergy status to other drugs, medicaments and biological substances
CPT/HCPCS: 96365; 96366; G0463; J1642; J2260

== ENCOUNTER → 2023-09-12 | Outpatient (CLI) | payer MEDICARE, MEDICAID ==
[2023-09-12] VITALS (10 sets, daily range): BP systolic 97–129; BP diastolic 51–80; PULSE 76–87; RESP 16; O2SAT 96
== END | disposition home or self-care (01) ==
LOC: CHF HDHVI 09:23
PROVIDERS: ATTEND Internal Medicine Cardiovascular Disease
DX: I13.0 Hypertensive heart and chronic kidney disease with heart failure and stage 1 through stage 4 chronic kidney disease, or unspecified chronic kidney disease (principal); E11.22 Type 2 diabetes mellitus with diabetic chronic kidney disease; N18.4 Chronic kidney disease, stage 4 (severe); I50.43 Acute on chronic combined systolic (congestive) and diastolic (congestive) heart failure; I42.0 Dilated cardiomyopathy; F41.9 Anxiety disorder, unspecified; I25.10 Atherosclerotic heart disease of native coronary artery without angina pectoris; J44.9 Chronic obstructive pulmonary disease, unspecified; E78.5 Hyperlipidemia, unspecified; I25.2 Old myocardial infarction; I48.0 Paroxysmal atrial fibrillation; G40.909 Epilepsy, unspecified, not intractable, without status epilepticus; Z87.891 Personal history of nicotine dependence; Z95.810 Presence of automatic (implantable) cardiac defibrillator; Z86.73 Personal history of transient ischemic attack (TIA), and cerebral infarction without residual deficits; Z79.899 Other long term (current) drug therapy; Z79.01 Long term (current) use of anticoagulants
CPT/HCPCS: 96365; 96366; G0463; J1642; J2260

== ENCOUNTER → 2023-09-17 | Outpatient (CLI) | payer MEDICARE, MEDICAID ==
[2023-09-17] VITALS (11 sets, daily range): BP systolic 92–116; BP diastolic 52–69; PULSE 69–82; RESP 16; O2SAT 95
[~2023-09-17] MED LIST changes: +POTASSIUM CHL 20 Meq TABLET PO ONE; +metOLazone 5 MG TAB ONE; +metOLazone 5 MG TAB PO ONE
== END | disposition home or self-care (01) ==
LOC: CHF HDHVI 09:34
PROVIDERS: ATTEND Internal Medicine Cardiovascular Disease
DX: I13.0 Hypertensive heart and chronic kidney disease with heart failure and stage 1 through stage 4 chronic kidney disease, or unspecified chronic kidney disease (principal); E11.22 Type 2 diabetes mellitus with diabetic chronic kidney disease; I50.43 Acute on chronic combined systolic (congestive) and diastolic (congestive) heart failure; N18.4 Chronic kidney disease, stage 4 (severe); I25.10 Atherosclerotic heart disease of native coronary artery without angina pectoris; I25.2 Old myocardial infarction; I42.0 Dilated cardiomyopathy; I48.0 Paroxysmal atrial fibrillation; J44.9 Chronic obstructive pulmonary disease, unspecified; E78.5 Hyperlipidemia, unspecified; F41.9 Anxiety disorder, unspecified; Z79.01 Long term (current) use of anticoagulants; Z79.899 Other long term (current) drug therapy; Z87.891 Personal history of nicotine dependence; Z95.810 Presence of automatic (implantable) cardiac defibrillator; Z86.73 Personal history of transient ischemic attack (TIA), and cerebral infarction without residual deficits; Z88.8 Allergy status to other drugs, medicaments and biological substances
CPT/HCPCS: 96365; 96366; G0463; J1642; J2260

== ENCOUNTER → 2023-09-18 | Outpatient (CLI) | payer MEDICARE, MEDICAID ==
[2023-09-18] VITALS (11 sets, daily range): BP systolic 90–124; BP diastolic 46–85; PULSE 68–75; RESP 18; O2SAT 97
== END | disposition home or self-care (01) ==
LOC: CHF HDHVI 10:00
PROVIDERS: ATTEND Internal Medicine Cardiovascular Disease
DX: I13.0 Hypertensive heart and chronic kidney disease with heart failure and stage 1 through stage 4 chronic kidney disease, or unspecified chronic kidney disease (principal); E11.22 Type 2 diabetes mellitus with diabetic chronic kidney disease; N18.4 Chronic kidney disease, stage 4 (severe); I50.43 Acute on chronic combined systolic (congestive) and diastolic (congestive) heart failure; I42.0 Dilated cardiomyopathy; F41.9 Anxiety disorder, unspecified; I25.10 Atherosclerotic heart disease of native coronary artery without angina pectoris; J44.9 Chronic obstructive pulmonary disease, unspecified; E78.5 Hyperlipidemia, unspecified; I25.2 Old myocardial infarction; I48.0 Paroxysmal atrial fibrillation; G40.909 Epilepsy, unspecified, not intractable, without status epilepticus; E66.01 Morbid (severe) obesity due to excess calories; Z68.36 Body mass index [BMI] 36.0-36.9, adult; Z88.8 Allergy status to other drugs, medicaments and biological substances; Z79.01 Long term (current) use of anticoagulants; Z79.899 Other long term (current) drug therapy; Z87.891 Personal history of nicotine dependence; Z95.810 Presence of automatic (implantable) cardiac defibrillator; Z86.73 Personal history of transient ischemic attack (TIA), and cerebral infarction without residual deficits
CPT/HCPCS: 96365; 96366; G0463; J1642; J2260

== ENCOUNTER → 2023-09-24 | Outpatient (CLI) | payer MEDICARE, MEDICAID ==
[2023-09-24] VITALS (11 sets, daily range): BP systolic 98–134; BP diastolic 51–71; PULSE 55–73; RESP 16; O2SAT 98
== END | disposition home or self-care (01) ==
LOC: CHF HDHVI 09:41
PROVIDERS: ATTEND Internal Medicine Cardiovascular Disease
DX: I13.0 Hypertensive heart and chronic kidney disease with heart failure and stage 1 through stage 4 chronic kidney disease, or unspecified chronic kidney disease (principal); E11.22 Type 2 diabetes mellitus with diabetic chronic kidney disease; I50.43 Acute on chronic combined systolic (congestive) and diastolic (congestive) heart failure; N18.4 Chronic kidney disease, stage 4 (severe); I42.0 Dilated cardiomyopathy; I25.10 Atherosclerotic heart disease of native coronary artery without angina pectoris; I25.2 Old myocardial infarction; I25.5 Ischemic cardiomyopathy; I48.0 Paroxysmal atrial fibrillation; J44.9 Chronic obstructive pulmonary disease, unspecified; E78.5 Hyperlipidemia, unspecified; F41.9 Anxiety disorder, unspecified; E66.01 Morbid (severe) obesity due to excess calories; Z68.36 Body mass index [BMI] 36.0-36.9, adult; Z79.899 Other long term (current) drug therapy; Z87.891 Personal history of nicotine dependence; Z85.46 Personal history of malignant neoplasm of prostate; Z95.810 Presence of automatic (implantable) cardiac defibrillator; Z86.73 Personal history of transient ischemic attack (TIA), and cerebral infarction without residual deficits; Z88.8 Allergy status to other drugs, medicaments and biological substances
CPT/HCPCS: 96365; 96366; G0463; J1642; J2260

== ENCOUNTER → 2023-09-29 | Outpatient (CLI) | payer MEDICARE, MEDICAID ==
[2023-09-29] VITALS (12 sets, daily range): BP systolic 100–156; BP diastolic 46–86; PULSE 65–78; RESP 16; O2SAT 98
[~2023-09-29] MED LIST changes: +MILRINONE 20MG/100ML 100 ML IV SCH; -POTASSIUM CHL 20 Meq TABLET PO ONE; -metOLazone 5 MG TAB ONE; -metOLazone 5 MG TAB PO ONE
== END | disposition home or self-care (01) ==
LOC: CHF HDHVI 10:10
PROVIDERS: ATTEND Internal Medicine Cardiovascular Disease
DX: I13.0 Hypertensive heart and chronic kidney disease with heart failure and stage 1 through stage 4 chronic kidney disease, or unspecified chronic kidney disease (principal); E11.22 Type 2 diabetes mellitus with diabetic chronic kidney disease; I50.43 Acute on chronic combined systolic (congestive) and diastolic (congestive) heart failure; N18.4 Chronic kidney disease, stage 4 (severe); I25.5 Ischemic cardiomyopathy; I25.10 Atherosclerotic heart disease of native coronary artery without angina pectoris; I25.2 Old myocardial infarction; I48.0 Paroxysmal atrial fibrillation; J44.9 Chronic obstructive pulmonary disease, unspecified; J96.10 Chronic respiratory failure, unspecified whether with hypoxia or hypercapnia; E78.5 Hyperlipidemia, unspecified; F41.9 Anxiety disorder, unspecified; E66.01 Morbid (severe) obesity due to excess calories; Z68.36 Body mass index [BMI] 36.0-36.9, adult; Z79.01 Long term (current) use of anticoagulants; Z79.899 Other long term (current) drug therapy; Z87.891 Personal history of nicotine dependence; Z95.810 Presence of automatic (implantable) cardiac defibrillator; Z86.73 Personal history of transient ischemic attack (TIA), and cerebral infarction without residual deficits
CPT/HCPCS: 96365; 96366; G0463; J1642; J2260

== ENCOUNTER → 2023-10-03 | Outpatient (CLI) | payer MEDICARE, MEDICAID ==
[2023-10-03] VITALS (10 sets, daily range): BP systolic 94–125; BP diastolic 50–70; PULSE 66–86; RESP 16; O2SAT 75–96
[~2023-10-03] MED LIST changes: -MILRINONE 20MG/100ML 100 ML IV SCH; +POTASSIUM CHL 20 Meq TABLET PO ONE; +metOLazone 5 MG TAB ONE; +metOLazone 5 MG TAB PO ONE
== END | disposition home or self-care (01) ==
LOC: CHF HDHVI 10:01
PROVIDERS: ATTEND Internal Medicine Cardiovascular Disease
DX: I13.0 Hypertensive heart and chronic kidney disease with heart failure and stage 1 through stage 4 chronic kidney disease, or unspecified chronic kidney disease (principal); E11.22 Type 2 diabetes mellitus with diabetic chronic kidney disease; N18.4 Chronic kidney disease, stage 4 (severe); I50.43 Acute on chronic combined systolic (congestive) and diastolic (congestive) heart failure; I42.0 Dilated cardiomyopathy; F41.9 Anxiety disorder, unspecified; I25.10 Atherosclerotic heart disease of native coronary artery without angina pectoris; J44.9 Chronic obstructive pulmonary disease, unspecified; J96.11 Chronic respiratory failure with hypoxia; G40.909 Epilepsy, unspecified, not intractable, without status epilepticus; E78.5 Hyperlipidemia, unspecified; I25.2 Old myocardial infarction; I48.0 Paroxysmal atrial fibrillation; E66.01 Morbid (severe) obesity due to excess calories; Z88.8 Allergy status to other drugs, medicaments and biological substances; Z79.899 Other long term (current) drug therapy; Z86.73 Personal history of transient ischemic attack (TIA), and cerebral infarction without residual deficits; Z95.810 Presence of automatic (implantable) cardiac defibrillator; Z85.46 Personal history of malignant neoplasm of prostate; Z87.891 Personal history of nicotine dependence; Z68.36 Body mass index [BMI] 36.0-36.9, adult
CPT/HCPCS: 96365; 96366; G0463; J1642; J2260

== ENCOUNTER → 2023-10-10 | Outpatient (CLI) | payer MEDICARE, MEDICAID ==
[2023-10-10] VITALS (9 sets, daily range): BP systolic 96–133; BP diastolic 54–85; PULSE 46–87; RESP 16; O2SAT 98
== END | disposition home or self-care (01) ==
LOC: CHF HDHVI 09:48
PROVIDERS: ATTEND Internal Medicine Cardiovascular Disease
DX: I13.0 Hypertensive heart and chronic kidney disease with heart failure and stage 1 through stage 4 chronic kidney disease, or unspecified chronic kidney disease (principal); E11.22 Type 2 diabetes mellitus with diabetic chronic kidney disease; N18.4 Chronic kidney disease, stage 4 (severe); I50.43 Acute on chronic combined systolic (congestive) and diastolic (congestive) heart failure; I42.0 Dilated cardiomyopathy; F41.9 Anxiety disorder, unspecified; I25.10 Atherosclerotic heart disease of native coronary artery without angina pectoris; J44.9 Chronic obstructive pulmonary disease, unspecified; J96.11 Chronic respiratory failure with hypoxia; G40.909 Epilepsy, unspecified, not intractable, without status epilepticus; E78.5 Hyperlipidemia, unspecified; E66.01 Morbid (severe) obesity due to excess calories; I25.2 Old myocardial infarction; I48.0 Paroxysmal atrial fibrillation; Z79.01 Long term (current) use of anticoagulants; Z79.899 Other long term (current) drug therapy; Z85.46 Personal history of malignant neoplasm of prostate; Z87.891 Personal history of nicotine dependence; Z95.810 Presence of automatic (implantable) cardiac defibrillator; Z88.8 Allergy status to other drugs, medicaments and biological substances; Z86.73 Personal history of transient ischemic attack (TIA), and cerebral infarction without residual deficits; Z68.36 Body mass index [BMI] 36.0-36.9, adult
CPT/HCPCS: 96365; 96366; G0463; J1642; J2260

== ENCOUNTER → 2023-10-13 | Outpatient (CLI) | payer MEDICARE, MEDICAID ==
[~2023-10-13] VITALS: Ht 30.5 cm; Wt 95.3 kg
[2023-10-13] VITALS (12 sets, daily range): BP systolic 102–132; BP diastolic 49–92; PULSE 77–92; RESP 18; O2SAT 96
== END | disposition home or self-care (01) ==
LOC: CHF HDHVI 09:10
PROVIDERS: ATTEND Internal Medicine Cardiovascular Disease
DX: I13.0 Hypertensive heart and chronic kidney disease with heart failure and stage 1 through stage 4 chronic kidney disease, or unspecified chronic kidney disease (principal); E11.22 Type 2 diabetes mellitus with diabetic chronic kidney disease; I50.43 Acute on chronic combined systolic (congestive) and diastolic (congestive) heart failure; N18.4 Chronic kidney disease, stage 4 (severe); I42.0 Dilated cardiomyopathy; I25.10 Atherosclerotic heart disease of native coronary artery without angina pectoris; I25.2 Old myocardial infarction; I48.0 Paroxysmal atrial fibrillation; J44.9 Chronic obstructive pulmonary disease, unspecified; J96.10 Chronic respiratory failure, unspecified whether with hypoxia or hypercapnia; E78.5 Hyperlipidemia, unspecified; F41.9 Anxiety disorder, unspecified; E66.01 Morbid (severe) obesity due to excess calories; Z68.36 Body mass index [BMI] 36.0-36.9, adult; Z79.01 Long term (current) use of anticoagulants; Z79.899 Other long term (current) drug therapy; Z87.891 Personal history of nicotine dependence; Z85.46 Personal history of malignant neoplasm of prostate; Z95.810 Presence of automatic (implantable) cardiac defibrillator; Z86.73 Personal history of transient ischemic attack (TIA), and cerebral infarction without residual deficits; Z88.8 Allergy status to other drugs, medicaments and biological substances
CPT/HCPCS: 96365; 96366; G0463; J1642; J2260

== ENCOUNTER → 2023-10-15 | Outpatient (CLI) | payer MEDICARE, MEDICAID ==
[2023-10-15] VITALS (11 sets, daily range): BP systolic 91–109; BP diastolic 53–68; PULSE 78–89; RESP 16; O2SAT 98
[~2023-10-15] MED LIST changes: -MILRINONE 20MG/100ML 100 ML IV ONE; -POTASSIUM CHL 20 Meq TABLET PO ONE; -metOLazone 5 MG TAB ONE; -metOLazone 5 MG TAB PO ONE
[2023-10-15] MEDS: MILRINONE 20MG/100ML 100 ML IV ONE ×2 (09:22→09:50)
== END | disposition home or self-care (01) ==
LOC: Rad HDHVI 09:01
PROVIDERS: ATTEND Internal Medicine Cardiovascular Disease
DX: I13.0 Hypertensive heart and chronic kidney disease with heart failure and stage 1 through stage 4 chronic kidney disease, or unspecified chronic kidney disease (principal); E11.22 Type 2 diabetes mellitus with diabetic chronic kidney disease; N18.4 Chronic kidney disease, stage 4 (severe); I50.43 Acute on chronic combined systolic (congestive) and diastolic (congestive) heart failure; I42.0 Dilated cardiomyopathy; I25.10 Atherosclerotic heart disease of native coronary artery without angina pectoris; J44.9 Chronic obstructive pulmonary disease, unspecified; J96.11 Chronic respiratory failure with hypoxia; E78.5 Hyperlipidemia, unspecified; I25.2 Old myocardial infarction; I48.0 Paroxysmal atrial fibrillation; E66.01 Morbid (severe) obesity due to excess calories; F41.9 Anxiety disorder, unspecified; G40.909 Epilepsy, unspecified, not intractable, without status epilepticus; Z88.8 Allergy status to other drugs, medicaments and biological substances; Z79.01 Long term (current) use of anticoagulants; Z68.36 Body mass index [BMI] 36.0-36.9, adult; Z85.46 Personal history of malignant neoplasm of prostate; Z87.891 Personal history of nicotine dependence; Z95.810 Presence of automatic (implantable) cardiac defibrillator; Z86.73 Personal history of transient ischemic attack (TIA), and cerebral infarction without residual deficits; Z79.899 Other long term (current) drug therapy
CPT/HCPCS: 93306; 96365; 96366; G0463; J1642; J2260

== ENCOUNTER → 2023-10-17 | Outpatient (CLI) | payer MEDICARE, MEDICAID ==
[2023-10-17] VITALS (11 sets, daily range): BP systolic 83–113; BP diastolic 52–68; PULSE 69–81; RESP 16; O2SAT 98
[~2023-10-17] MED LIST changes: +MAGNESIUM OXIDE 400 MG TAB ONE; +MAGNESIUM OXIDE 400 MG TAB PO ONE; +MILRINONE 20MG/100ML 100 ML IV ONE; +POTASSIUM CHL 20 Meq TABLET PO ONE; +metOLazone 5 MG TAB ONE; +metOLazone 5 MG TAB PO ONE
== END | disposition home or self-care (01) ==
LOC: CHF HDHVI 09:53
PROVIDERS: ATTEND Internal Medicine Cardiovascular Disease
DX: I13.0 Hypertensive heart and chronic kidney disease with heart failure and stage 1 through stage 4 chronic kidney disease, or unspecified chronic kidney disease (principal); E11.22 Type 2 diabetes mellitus with diabetic chronic kidney disease; I50.43 Acute on chronic combined systolic (congestive) and diastolic (congestive) heart failure; N18.4 Chronic kidney disease, stage 4 (severe); I42.0 Dilated cardiomyopathy; I25.10 Atherosclerotic heart disease of native coronary artery without angina pectoris; I25.5 Ischemic cardiomyopathy; I25.2 Old myocardial infarction; I48.0 Paroxysmal atrial fibrillation; J44.9 Chronic obstructive pulmonary disease, unspecified; J96.10 Chronic respiratory failure, unspecified whether with hypoxia or hypercapnia; E78.5 Hyperlipidemia, unspecified; E66.01 Morbid (severe) obesity due to excess calories; Z68.36 Body mass index [BMI] 36.0-36.9, adult; Z79.01 Long term (current) use of anticoagulants; Z79.899 Other long term (current) drug therapy; Z85.46 Personal history of malignant neoplasm of prostate; Z87.891 Personal history of nicotine dependence; Z95.810 Presence of automatic (implantable) cardiac defibrillator; Z86.73 Personal history of transient ischemic attack (TIA), and cerebral infarction without residual deficits
CPT/HCPCS: 96365; 96366; G0463; J1642; J2260

== ENCOUNTER → 2023-10-22 | Outpatient (CLI) | payer MEDICARE, MEDICAID ==
[2023-10-22] VITALS (12 sets, daily range): BP systolic 101–119; BP diastolic 57–80; PULSE 72–97; RESP 20; O2SAT 96
== END | disposition home or self-care (01) ==
LOC: CHF HDHVI 09:41
PROVIDERS: ATTEND Internal Medicine Cardiovascular Disease
DX: I13.0 Hypertensive heart and chronic kidney disease with heart failure and stage 1 through stage 4 chronic kidney disease, or unspecified chronic kidney disease (principal); E11.22 Type 2 diabetes mellitus with diabetic chronic kidney disease; I50.43 Acute on chronic combined systolic (congestive) and diastolic (congestive) heart failure; N18.4 Chronic kidney disease, stage 4 (severe); I25.5 Ischemic cardiomyopathy; I25.10 Atherosclerotic heart disease of native coronary artery without angina pectoris; I25.2 Old myocardial infarction; I48.0 Paroxysmal atrial fibrillation; J44.9 Chronic obstructive pulmonary disease, unspecified; J96.10 Chronic respiratory failure, unspecified whether with hypoxia or hypercapnia; E78.5 Hyperlipidemia, unspecified; E66.01 Morbid (severe) obesity due to excess calories; Z68.36 Body mass index [BMI] 36.0-36.9, adult; Z79.01 Long term (current) use of anticoagulants; Z85.46 Personal history of malignant neoplasm of prostate; Z87.891 Personal history of nicotine dependence; Z95.810 Presence of automatic (implantable) cardiac defibrillator; Z86.73 Personal history of transient ischemic attack (TIA), and cerebral infarction without residual deficits; Z88.8 Allergy status to other drugs, medicaments and biological substances
CPT/HCPCS: 96365; 96366; G0463; J1642; J2260